=== PATIENT | male | born 1960 | race Hispanic/Latino ===

== ENCOUNTER 2018-08-07 19:58 | Emergency (ER) | payer BC, SELFPAY ==
--- NOTE | 2018-08-07 22:26 | ER ---
Nurse's Notes [facility] Name: Homer Bradshaw Age: 58 yrs Sex: Male : 1960 Arrival Date: 08/07/2018 Time: 20:01 Bed 24 Private MD: Ruiz Nielson R Diagnosis: Urinary retention;Constipation, unspecified Presentation: 08/07 20:02 Presenting complaint: Patient states: Patient states I am having problems having a tl1 bowel movement and he has been unable to urinate since yesterday. Transition of care: patient was not received from another setting of care. Onset of symptoms was August 06, 2018. Risk Assessment: Do you want to hurt yourself or someone else? Patient reports no desire to harm self or others. Initial Sepsis Screen: Does the patient meet any 2 criteria? No. Patient's initial sepsis screen is negative. Does the patient have a suspected source of infection? No. Patient's initial sepsis screen is negative. Care prior to arrival: None. 20:02 Method Of Arrival: Wheelchair tl1 20:02 Acuity: MICHELLE 3 tl1 20:06 Note dialysis Tues/Th/Sat. tl1 Historical: - Allergies: 20:05 Vancomycin; tl1 - Home Meds: 20:46 clonidine HCl 0.1 mg Oral tab 1 tab 2 times per day [Active]; carvedilol 12.5 mg oral tl1 tab 1 tab every 12 hours [Active]; Nifedipine ER Oral 60 mg twice a day [Active]; isosorbide mononitrate 120 mg Oral Tb24 once daily [Active]; ferrous sulfate 325 mg (65 mg iron) Oral tab [Active]; lansoprazole 15 mg oral cpDR 1 cap once daily [Active]; atorvastatin 40 mg oral tab 1 tab once daily [Active]; 21:12 hydrocodone-acetaminophen 7.5-325 mg Oral tab 1 tab every 6 hours [Active]; furosemide tl1 40 mg Oral tab 2 tabs 2 times per day [Active]; losartan 100 mg oral tab 1 tab once daily [Active]; Insulin: Novolog Sub-Q [Active]; insulin-levemir 20 unit daily [Active]; Vitamin D Oral 50,000 unit every Sunday [Active]; aspirin 81 mg Oral TbEC 1 tab once daily [Active]; - PMHx: 20:05 Diabetes - IDDM; Dialysis; Hypertension; tl1 - PSHx: 20:05 Knee surgery; CABG; dialysis port; tl1 - Immunization history:: Adult Immunizations up to date. - Social history:: Smoking status: Patient/guardian denies using tobacco, never smoked. - Ebola Screening: : Patient negative for fever greater than or equal to 101.5 degrees Fahrenheit, and additional compatible Ebola Virus Disease symptoms Patient denies exposure to infectious person Patient denies travel to an Ebola-affected area in the 21 days before illness onset. Screenin:19 Abuse screen: Denies threats or abuse. Denies injuries from another. Nutritional rv screening: No deficits noted. Tuberculosis screening: No symptoms or risk factors identified. Fall Risk No fall in past 12 months (0 pts). Secondary diagnosis (15 points) impaired mobility, No IV (0 pts). Ambulatory Aid- None/Bed Rest/Nurse Assist (0 pts). Gait- Impaired (20 pts.). Mental Status- Oriented to own ability (0 pts). Total Lorenzo Fall Scale indicates Low Risk Score (25-44 pts). Fall prevention measures have been instituted. Side Rails Up X 2 Placed close to Nursing Station Frequent Obs/Assesments occuring Family Present and informed to notify staff if they need to leave bedside As available Patient and Family Educated on Fall Prevention Program and strategies. Assessment: 20:17 General: Appears uncomfortable, Behavior is calm, cooperative. Pain: Complains of pain rv in abdomen and pelvis. Neuro: Level of Consciousness is awake, alert, obeys commands, Oriented to person, place, time, situation. Cardiovascular: Capillary refill < 3 seconds. Respiratory: Airway is patent. GI: Bowel sounds present X 4 quads. Abd is soft and non tender X 4 quads. : Reports inability to void, since YESTERDAY. EENT: No signs and/or symptoms were reported regarding the EENT system. Derm: Skin is intact. Musculoskeletal: No signs and/or symptoms reported regarding the musculoskeletal system. Vital Signs: 20:05 BP 113 / 70; Pulse 83; Resp 19; Temp 97.2; Pulse Ox 99% ; Weight 90.72 kg; Height 6 ft. tl1 1 in. (185.42 cm); Pain 7/10; 22:44 BP 126 / 100 LA; Pulse 88; Resp 18 S; Pulse Ox 98% on R/A; rv 20:05 Body Mass Index 26.39 (90.72 kg, 185.42 cm) tl1 ED Course: 20:01 Patient arrived in ED. es 20:01 Ruiz Nielson MD is Private Physician. es 20:04 Triage completed. tl1 20:06 Arm band placed on right wrist. tl1 20:18 Patient has correct armband on for positive identification. Bed in low position. Call rv light in reach. Side rails up X 1. Adult w/ patient. Pulse ox on. NIBP on. 20:40 Ervin Evangelista MD is Attending Physician. tw4 21:15 Rosario cath inserted, using sterile technique, 16 Fr., by pa, balloon inflated, returned rv clear yellow urine. Patient tolerated well. 22:24 Ruiz Nielson MD is Referral Physician. tw4 22:44 No provider procedures requiring assistance completed. Patient did not have IV access rv during this emergency room visit. Administered Medications: No medications were administered Output: 21:15 Urine: 725ml (Rosario); Total: 725ml. rv Outcome: 22:25 Discharge ordered by . tw4 22:45 Discharged to home via wheelchair. rv 22:45 Condition: good 22:45 Discharge instructions given to patient, family, Instructed on discharge instructions, follow up and referral plans. medication usage, Demonstrated understanding of instructions, follow-up care, medications, Prescriptions given X 1. 22:48 Patient left the ED. rv Signatures: Cinthya Espinoza Tonya RN RN tl1 Ervin Evangelista MD MD tw4 Costa Palmer RN RN rv
[2018-08-08 00:22] VITALS: TEMP 97.2
[2018-08-08 00:23] VITALS: BP 126/100; O2SAT 98
--- NOTE | 2018-08-08 22:48 | EDPHYS ---
Physician Documentation [facility] Name: Homer Bradshaw Age: 58 yrs Sex: Male : 1960 Arrival Date: 08/07/2018 Time: 20:01 Bed 24 Private MD: Ruiz Nielson R ED Physician Ervin Evangelista HPI: 08/08 06:01 This 58 yrs old Male presents to ER via Wheelchair with complaints of tw4 Constipation, Urinary Retention. 06:01 The patient presents with urinary symptoms, retention. Onset: The symptoms/episode tw4 began/occurred today. Modifying factors: The symptoms are alleviated by nothing, the symptoms are aggravated by movement, pressure. Associated signs and symptoms: The patient has no apparent associated signs or symptoms. Severity of symptoms: At their worst the symptoms were moderate. The patient has not experienced similar symptoms in the past. Historical: - Allergies: 08/07 20:05 Vancomycin; tl1 - Home Meds: 20:46 clonidine HCl 0.1 mg Oral tab 1 tab 2 times per day [Active]; carvedilol 12.5 mg oral tl1 tab 1 tab every 12 hours [Active]; Nifedipine ER Oral 60 mg twice a day [Active]; isosorbide mononitrate 120 mg Oral Tb24 once daily [Active]; ferrous sulfate 325 mg (65 mg iron) Oral tab [Active]; lansoprazole 15 mg oral cpDR 1 cap once daily [Active]; atorvastatin 40 mg oral tab 1 tab once daily [Active]; 21:12 hydrocodone-acetaminophen 7.5-325 mg Oral tab 1 tab every 6 hours [Active]; furosemide tl1 40 mg Oral tab 2 tabs 2 times per day [Active]; losartan 100 mg oral tab 1 tab once daily [Active]; Insulin: Novolog Sub-Q [Active]; insulin-levemir 20 unit daily [Active]; Vitamin D Oral 50,000 unit every Sunday [Active]; aspirin 81 mg Oral TbEC 1 tab once daily [Active]; - PMHx: 20:05 Diabetes - IDDM; Dialysis; Hypertension; tl1 - PSHx: 20:05 Knee surgery; CABG; dialysis port; tl1 - Immunization history:: Adult Immunizations up to date. - Social history:: Smoking status: Patient/guardian denies using tobacco, never smoked. - Ebola Screening: : Patient negative for fever greater than or equal to 101.5 degrees Fahrenheit, and additional compatible Ebola Virus Disease symptoms Patient denies exposure to infectious person Patient denies travel to an Ebola-affected area in the 21 days before illness onset. ROS: 08/08 06:01 Constitutional: Negative for fever, chills, and weight loss, Eyes: Negative for injury, tw4 pain, redness, and discharge, Cardiovascular: Negative for chest pain, palpitations, and edema, Respiratory: Negative for shortness of breath, cough, wheezing, and pleuritic chest pain, Abdomen/GI: Negative for abdominal pain, nausea, vomiting, diarrhea, and constipation. MS/Extremity: Negative for injury and deformity, Skin: Negative for injury, rash, and discoloration. : Positive for urinary symptoms. Exam: 06:01 Head/Face: Normocephalic, atraumatic. Chest/axilla: Normal chest wall appearance and tw4 motion. Nontender with no deformity. No lesions are appreciated. 06:01 Cardiovascular: Regular rate and rhythm with a normal S1 and S2. No gallops, murmurs, or rubs. Normal PMI, no JVD. No pulse deficits. Respiratory: Lungs have equal breath sounds bilaterally, clear to auscultation and percussion. No rales, rhonchi or wheezes noted. No increased work of breathing, no retractions or nasal flaring. Abdomen/GI: Soft, non-tender, with normal bowel sounds. No distension or tympany. No guarding or rebound. No evidence of tenderness throughout. Back: No spinal tenderness. No costovertebral tenderness. Full range of motion. MS/ Extremity: Pulses equal, no cyanosis. Neurovascular intact. Full, normal range of motion. Neuro: Awake and alert, GCS 15, oriented to person, place, time, and situation. Cranial nerves II-XII grossly intact. Motor strength 5/5 in all extremities. Sensory grossly intact. Cerebellar exam normal. Normal gait. 06:01 Constitutional: The patient appears in obvious distress, moderately distressed. 06:01 Constitutional: The patient appears in obvious pain. Vital Signs: 08/07 20:05 BP 113 / 70; Pulse 83; Resp 19; Temp 97.2; Pulse Ox 99% ; Weight 90.72 kg; Height 6 ft. tl1 1 in. (185.42 cm); Pain 7/10; 22:44 BP 126 / 100 LA; Pulse 88; Resp 18 S; Pulse Ox 98% on R/A; rv 20:05 Body Mass Index 26.39 (90.72 kg, 185.42 cm) tl1 MDM: 20:40 Patient medically screened. tw4 08/08 06:01 Differential diagnosis: nonspecific abdominal pain, appendicitis, UTI. Data reviewed: tw4 vital signs, nurses notes. Data interpreted: Pulse oximetry:. Counseling: I had a detailed discussion with the patient and/or guardian regarding: the historical points, exam findings, and any diagnostic results supporting the discharge/admit diagnosis. Special discussion: I discussed with the patient/guardian in detail that at this point there is no indication for admission to the hospital. It is understood, however, that if the symptoms persist or worsen the patient needs to return immediately for re-evaluation. Administered Medications: No medications were administered Disposition: 08/07/18 22:25 Discharged to Home. Impression: Urinary retention, Constipation, unspecified. - Condition is Stable. - Discharge Instructions: Constipation, Adult, Acute Urinary Retention, Male. - Prescriptions for Miralax 17 gram/dose Oral - take 1 packet by ORAL route once daily dilute powder in 8 ounces of water or juice; 1 packet. - Medication Reconciliation Form, Thank You Letter, Antibiotic Education, Prescription Opioid Use form. - Follow up: Ruiz Nielson MD; When: Upon discharge from the Emergency Department; Reason: If symptoms return, Recheck today's complaints, Continuance of care. - Problem is new. - Symptoms have improved. Signatures: Denita Caraballo RN RN tl1 Ervin Evangelista MD MD tw4 Costa Palmer RN RN rv Corrections: (The following items were deleted from the chart) 08/07 22:48 22:25 08/07/2018 22:25 Discharged to Home. Impression: Urinary retention; Constipation, rv unspecified. Condition is Stable. Forms are Medication Reconciliation Form, Thank You Letter, Antibiotic Education, Prescription Opioid Use. Follow up: Ruiz Nielson; When: Upon discharge from the Emergency Department; Reason: If symptoms return, Recheck today's complaints, Continuance of care. Problem is new. Symptoms have improved. tw4
== END 2018-08-07 22:48 | disposition home or self-care (01) ==
LOC: ER 19:58
DX: K59.00 Constipation, unspecified (principal); I10 Essential (primary) hypertension; E11.9 Type 2 diabetes mellitus without complications; Z79.4 Long term (current) use of insulin; Z79.82 Long term (current) use of aspirin; Z88.3 Allergy status to other anti-infective agents; Z99.2 Dependence on renal dialysis; Z95.1 Presence of aortocoronary bypass graft
CPT/HCPCS: 51702; 99284

== ENCOUNTER 2020-10-10 14:28 | Emergency (ER) | payer MEDICARE ==
--- OUTSIDE RECORDS SUMMARY | 2020-10-10 14:41 | XMS REPORT | Continuity of Care Document ---
:1960 Author Organization [facility] t Address [address] [place] [address] Dr. Cole [address] [place] [id number] Care Team Providers Name Role Phone Ruiz Johnson Primary Care Physician Unavailable Yenni Mansfield Attending Clinician Unavailable Jessica Saeed MD Attending Clinician Unavailable Jessica WALLACE Attending Clinician Unavailable Ya Whitehead Attending Clinician Unavailable Delbert Gates MD Attending Clinician Jarrod Healy MD Attending Clinician Krystina WALLACE Attending Clinician Unavailable Toribio Attending Clinician Unavailable Jonathan Attending Clinician Unavailable Compa JUNE RIqra Attending Clinician DELBERT GATES Attending Clinician Unavailable MUSA HAMILTON Attending Clinician Unavailable Gabriella HARRIS Attending Clinician Unavailable ALEXIS DAIGLE Attending Clinician Unavailable ROBERT CHATMAN Attending Clinician Unavailable JOHN PAUL BONE Attending Clinician Unavailable PAZ DICKERSON Attending Clinician Unavailable JASON Attending Clinician Unavailable HERB Attending Clinician Unavailable EMEKA ZAMBRANO Attending Clinician Unavailable LUCINA العراقي Attending Clinician Unavailable BROOKLYN DENSON Attending Clinician Unavailable Eren SCOTT Attending Clinician Unavailable BROOKLYN SHEETS Attending Clinician Unavailable MUSA HAMILTON Admitting Clinician Unavailable TRAVIS ALLEN Admitting Clinician Unavailable ROBERT CHATMAN Admitting Clinician Unavailable CAROLINE Admitting Clinician Unavailable KOKI CHANDRA Admitting Clinician Unavailable HERB Admitting Clinician Unavailable EMEKA ZAMBRANO Admitting Clinician Unavailable LUCINA العراقي Admitting Clinician Unavailable ZANE SADLER Admitting Clinician Unavailable Eren SCOTT Admitting Clinician Unavailable BROOKLYN HEADLEY Admitting Clinician Unavailable Payers Payer Name Policy Type Policy Effective Date Expiration Date Sour ce Number MEDICAREMEDICARE A [id number] 2018 [facility] CywaaoelKJ330/06/2018-P 00:00:00 - Medical resentMedicare Center BLUE CROSS/BLUE [id number] [address] [facility] SHIELDBCBS PPO POS EPO 1 00:00:00 - Medical [id number], [place] [id number] COVID VACCINE ADMIN / [id number] 2020-07-12 DARCI Parker TESTINGCOVID VACCINE 00:00:00 - Nh dical ADMIN / Center [id number] Problems Condition Condition Condition Status Onset Resolution Last Treating Co mments Source Name Details Category Date Date Treatment Clinician Date S/P AKA S/P AKA Disease Active Last [facility] (above (above 8-[facility] - knee knee 00:00: t & Plan: Medical amputation amputation 00 He has a Center ) ) right unilateral unilateral above the , right , right knee amputatio n and is able to walk with the prosthesi s with a walker for short distances . He continues to use a wheelchai r only for long distances . We recommend he continue to work with physical therapy to increase his ability walk with prothesis and walker, however he is acceptabl e at current functiona l status. We will request follow up appointme nt with transplan t surgery in 6 months to continue to assess progress of his functiona l status. Diabetic Diabetic Disease Active [facility] peripheral peripheral 8-15 [facility] - neuropathy neuropathy 00:00: Me dical 00 Center Secondary Secondary Disease Active [facility] hyperparat hyperparat 8-15 Loena kes - hyroidism hyroidism 00:00: Medi fatmata of renal of renal 00 Center origin origin Pre-transp Pre-transp Disease Active [facility] t & Plan: Medical for end for end 00 He is an Center stage stage acceptabl renal renal e disease disease candidate but will be considere d high risk due to vessel calcifica tion. We recommend right side placement of kidney transplan t. We recommend he continue to work with physical therapy and would like to assess his mobility status in surgery clinic again in six months. S/P CABG x S/P CABG x Disease Active Last [facility] 3 3 8-15 [facility] - 00:00: t & Plan: Medical 00 He has a Center past history of CAD with CABG x3 in 2018. Proceed with cardiolog y clearance prior to transplan t. S/P S/P Disease Active [facility] peripheral peripheral 8-15 [facility]ona k[facility] - artery artery 00:00: Medical angioplast angioplast 00 Ce nter y with y with stent stent placement placement Pyogenic Pyogenic Disease Active [facility] arthritis arthritis 4-17 [facility] - of right of right 00:00: Medica l knee joint knee joint 00 Ce nter Acute pain Acute pain Disease Active [facility] of right of right 4-16 [facility] - knee knee 00:00: Medical 00 Center Open wound Open wound Disease Active [facility] of right of right 2-06 [facility] - knee knee 00:00: Medical 00 Center Pyogenic Pyogenic Disease Active 2017-06 [facility] arthritis arthritis 2-19 [facility] - of right of right 00:00: Medica l knee joint knee joint 00 Ce nter GI bleed GI bleed Disease Active 2017-06 [facility] 2-17 [facility] - 00:00: Medical 00 Center Hyperlipid Hyperlipid Disease Active 2017-[address] emia emia 06-27 [facility] - 00:00: Medical 00 Center Hypertensi Hypertensi Disease Active 2017-[address] on on 06-27 [facility] - 00:00: Medical 00 Center Acute Acute Disease Active 2017-[address] [facility] [facility] renal renal 06-27 [facility] - failure failure 00:00: Medical superimpos superimpos 00 Ce nter ed on ed on stage 3 stage 3 chronic chronic kidney kidney disease disease DM DM Disease Active 2017-[address] (diabetes (diabetes 1-17 [facility] - mellitus), mellitus), 00:00: t & Plan: Medical type 2 type 2 00 He will Center require strict blood glucose monitorin g and control prior to transplan t. Macrocytic Macrocytic Disease Active 2017-[address] anemia anemia 1-17 [facility] - 00:00: Medical 00 Center Dyspnea Dyspnea Disease Active 2017-[address] [facility] and and 1-16 [facility] - respirator respirator 00:00: Me dical y y 00 Center abnormalit abnormalit y y Pericardia Pericardia Disease Active [facility] l effusion l effusion 5-17 [facility]ona k[facility] - 00:00: Medical 00 Center Coronary Coronary Disease Active [facility] artery artery 5-11 [facility] - disease disease 00:00: Medical involving involving 00 Cent [place] coronary coronary artery of artery of [place] heart heart without without angina angina pectoris pectoris Peripheral Peripheral Disease Active [facility] polyneurop polyneurop 5-11 [facility]ona k[facility] - athy athy 00:00: Medical 00 Center Respirator Respirator Disease Active [facility] y y 5-04 [facility] - insufficie insufficie 00:00: Me dical ncy ncy 00 Center Non-ST Non-ST Disease Active [facility] elevation elevation -26 [facility] [place] 00:00: Medical (NSTEMI) (NSTEMI) 00 Center Diastolic Diastolic Disease Active [facility] CHF, acute CHF, acute -26 Leona kes - on chronic on chronic 00:00: Me dical 00 Center Metabolic Metabolic Disease Active [facility] acidosis acidosis 10-04 [facility] - 00:00: Medical 00 Center Hyperphosp Hyperphosp Disease Active [facility] hatemia hatemia - [facility] - 00:00: Medical 00 Center Hypocalcem Hypocalcem Disease Active [facility] ia ia -26 [facility] - 00:00: Medical 00 Center CKD stage CKD stage Disease Active [facility] 3 3 -26 [facility] - secondary secondary 00:00: Medi fatmata to to 00 Center diabetes diabetes Osteomyeli Osteomyeli Disease Active [facility] tis of tis of 4-19 [facility] - right foot right foot 00:00: Me dical 00 Center Cellulitis Cellulitis Disease Active [facility] of foot, of foot, 4-19 [facility] - right right 00:00: Medical 00 Center Diabetic Diabetic Disease Active [facility] infection infection 4-19 [facility] - of right of right 00:00: Medica l foot foot 00 Center Subacute Subacute Disease Active [facility] osteomyeli osteomyeli 1-31 Leona kes - tis of tis of 00:00: Medical right foot right foot 00 Ce nter Renal Renal Disease Active [facility] failure, failure, 1-14 [facility] - acute on acute on 00:00: Medica l chronic chronic 00 Center Ischemic Ischemic Disease Active 2015-06 [facility] ulcer of ulcer of 2-19 [facility] - right foot right foot 00:00: Me dical 00 Center Osteomyeli Osteomyeli Disease Active 2014-[address] tis of tis of 0-16 [facility] - left leg left leg 00:00: Medica l 00 Center BPH BPH Disease Active 2014-[address] [facility] (benign (benign 0-11 [facility] - prostatic prostatic 00:00: Medi fatmata hypertroph hypertroph 00 Ce nter y) with y) with urinary urinary retention retention Encephalop Encephalop Disease Active 2014-[address] athy athy 0-11 [facility] - 00:00: Medical 00 Center Accelerate Accelerate Disease Active 2014-[address] d d 0-11 [facility] - hypertensi hypertensi 00:00: Me dical on on 00 Center Type 2 Type 2 Disease Active 2014-[address] diabetes diabetes 0-05 Ass[facility] Patricia es - mellitus mellitus 00:00: t & Plan: Med ical with with 00 He will Center diabetic diabetic require retinopath retinopath strict y y blood glucose control prior to transplan t. Diabetes Diabetes Disease Active 2014-06 [facility] mellitus mellitus 0-05 [facility] - type 2 type 2 00:00: Medical with with 00 Center neurologic neurologic al al manifestat manifestat ions ions Hypertensi Hypertensi Disease Active 2014-[address] on on 0-05 [facility] - associated associated 00:00: Me dical with with 00 Center chronic chronic kidney kidney disease disease due to due to type 2 type 2 diabetes diabetes mellitus mellitus Diabetic Diabetic Disease Active 2014-06 [facility] foot ulcer foot ulcer 0-05 [facility] - 00:00: t & Plan: Medical 00 No Center current diabetic foot ulcer on the left foot are noted in clinic today. Continue with strict diabetic foot care. Chest pain Chest pain Disease Active 2014-[address] 0-05 [facility] - 00:00: Medical 00 Center FARHAN (acute FARHAN (acute Disease Active 2014-[address] kidney kidney 0-05 [facility] - injury) injury) 00:00: Medical 00 Center Anemia, Anemia, Disease Active 2014-[address] [facility] iron iron 0- [facility] - deficiency deficiency 00:00: Me dical 00 Center Critical Critical Disease Active 2014-06 [facility] lower limb lower limb 0- Leona lindas - ischemia ischemia 00:00: Medica l 00 Center Essential Essential Disease Active [facility] hypertensi hypertensi Leona kes - on on Medical Center PVD PVD Disease Active Last [facility] (periphera (periphera [facility] - l vascular l vascular t & Plan: Medical disease) disease) He is s/p Emily ter left femoral- tibial bypass in 2014, right femoral angio + stents in 2016 due to PVD. ESRD (end ESRD (end Disease Active [facility] stage stage [facility] - renal renal Medical disease) disease) Center ESRD on ESRD on Disease Active Last [facility] hemodialys hemodialys [facility] - is is t & Plan: Medical He has Center ESRD due to DM/HTN. He has been on HD since 06/2018. He continues to make urine at this time. He does not have any potential donors. Allergies, Adverse Reactions, Alerts Allergy Allergy Status Severity Reaction(s) Onset Inactive Treating Comm ents Source Name Type Date Date Clinician Vancomyc Drug Active Other (See Kidney [facility] in Allergy Comments) 4-24 Failure [facility] - Analogue 00:00: Medical s 00 Center No Known DA Active [facility] Allergie 03-05 [place] s 00:00: d 00 Medical Center Family History Family Member Diagnosis Comments Start Date Stop Date Source Natural brother No Known Problem [facility] Natural brother Heart disease [facility] Natural daughter No Known Problem CH I [facility] Natural father Diabetes [facility] Natural father Heart disease [facility] Natural mother Diabetes [facility] Natural mother Heart disease [facility] Natural sister Breast cancer [facility] Natural sister No Known Problem [facility] Social History Social Habit Start Date Stop Date Quantity Comments Source Sex Assigned At [facility] Cigarettes smoked 2020-01-06 2020-01-[address] [facility] Paula - current (pack per 00:00:00 00:00:00 [facility] Center day) - Reported Cigarette 2020-01-06 2020-01-06 [facility] - pack-years 00:00:00 00:00:00 [facility] Tobacco use and 2020-01-06 2020-01-06 Never used [facility] Leona strauss - exposure 00:00:00 00:00:00 [facility] Alcohol intake 2020-01-06 2020-01-06 Current [facility]k es - 00:00:00 00:00:00 non-drinker of Medical Ce nter alcohol (finding) History of tobacco 2014-12-09 Current smoker JOE Parker - use 00:00:00 [facility] Smoking Status Start Date Stop Date Source Former smoker 2020-01-06 00:00:00 2020-01-06 00:00:00 [facility] Medications Ordered Filled Start Stop Current Ordering Indication Dosage Frequency Signature Comments Components Source Medication Medication Date Date Medication? Clinician (SIG) Name Name calcium 2019-06 Yes 1{tbl} [id number] Take [address] [facility] carbonate 0-27 [id number] tablet by [facility] - (calcium 10:49: 3D mouth 3 Medica l carbonate) 56 (three) Center 300 mg Chew times daily. metoprolol 2019-06 Yes 12.5mg Q.5D Take 12.[address] tartrate 0-27 mg by [facility]ukes - (LOPRESSOR) 10:49: mouth 2 Med ical 25 MG 56 (two) Center tablet times daily. calcium 2019-06 2020- No 2{tbl} [id number] Take [address] carbonate 0-27 10-27 [id number] tablets by [facility] - (CALCIUM 10:49: 00:00 3D mouth 3 Medic al CARBONATE) 04 :00 (three) Center 300 mg Chew times daily. ergocalcife 2019-06 2020- No 1{capsu Q7D Take [address] [facility] rol 0-27 10-27 le} capsule by [facility] - (VITAMIN 10:48: 00:00 mouth once Me dical D2) 1,250 28 :00 a week. Center mcg (50,000 unit) capsule ferrous 2019-06- No Take by [facility] fumarate 0-27 10-27 mouth. [facility] - 324 mg (106 10:48: 00:00 Medic al mg iron) 10 :00 Center Tab polyethylen 2019-06- No 17g Take [address] e glycol 0-27 10-27 by mouth [facility] - (GLYCOLAX) 10:47: 00:00 daily as Me dical 17 gram 54 :00 needed . [place] packet carvedilol 2019-06- No 12.5mg Take 12.[address] (COREG) 0-27 10-27 mg by [facility] - 12.5 MG 10:47: 00:00 mouth 2 Medica l tablet 29 :00 (two) Center times daily with breakfast and dinner . aspirin 81 Yes 81mg QD Take [address] MG EC 7-28 by mouth [facility] - tablet 10:54: daily. Medical 31 [place] lansoprazol Yes 15mg QD Take [address] [facility] e 7-28 by mouth [facility] - (PREVACID) 10:54: daily. Medic al 15 MG 31 [place] capsule docusate Yes 100mg QD Take [address] sodium 7-28 mg by [facility]ukes - (COLACE) 10:54: mouth Medical 100 MG 31 daily . [place] capsule melatonin 3 Yes Take by [facility] mg Tab 7-28 mouth [facility] - tablet 10:54: every Medical 31 night as Center needed. atorvastati Yes 40mg QD Take [address] [facility] n (LIPITOR) 7-28 by mouth Luke s - 40 MG 10:54: nightly. Medical tablet 31 Center darbepoetin Yes 100ug Inject [address] fritz-polyso 7-28 mcg Lukes - rbate 10:54: subcutaneo Medica l (ARANESP) 31 usly as Center 100 mcg/0.5 needed . mL Syrg injection insulin Yes 40U QD Inject 40 [facility] detemir 7-28 Units [facility]ukes - U-100 10:54: subcutaneo Medica l (LEVEMIR) 31 usly every Cent er 100 unit/mL morning . (3 mL) InPn injection insulin Yes Inject [facility] aspart 7-28 subcutaneo [facility]ukes - U-100 10:54: usly 3 Medical (NOVOLOG) 31 (three) Center 100 unit/mL times injection daily before meals Per sliding scale . DIALYVITE Yes TAKE [address] [facility] 800-ULTRA D 8-16 TABLET [facility] - 0.8-2,000 00:00: EVERY DAY Med ical mg-unit Tab 00 TAKE AFTER Ce nter TREATMENT ON DIALYSIS DAYS sertraline 2019- No 50mg QD Take [address] (ZOLOFT) 50 6-28 04-06 by mouth Patricia es - MG tablet 00:00: 00:00 daily. Medic al 00 :00 Center Immunizations Ordered Immunization Filled Immunization Date Status Commen ts Source Name Name Covid-19 Vaccine 2020-07-[address] [facility] [facility] - Mrna (Pf) 00:00:00 [facility] ([email or web address] [place]) Covid-19 Vaccine 2020-07-[address] [facility] - Mrna (Pf) 00:00:00 [facility] ([email or web address] [place]) Influenza Three-TIV 2015-03-12 [facility] - PF 5+ YRS 00:00:00 Medic tn Center Vital Signs Vital Name Observation Time Observation Value Comments Source Systolic blood 2020-04-06 144 mm[Hg] [facility] - pressure 10:32:00 Medical Center Diastolic blood 2020-04-06 69 mm[Hg] [facility] - pressure 10:32:00 Medical Center Heart rate 2020-04-06 61 /min [facility] - 10:32:00 Medical Center Body temperature 2020-04-[address] [facility] - 10:32:00 Medical Center Respiratory rate 2020-04-06 18 /min [facility] - 10:32:00 Medical Center Body height 2020-04-06 185.4 cm per patient with [facility] - 10:32: prosthetic on Medical Center right leg below knee Body weight 2020-04-06 98.793 kg with prosthetic [facility] - 10:32:00 on right leg Medical Center below knee BMI 2020-04-06 28.74 kg/m2 [facility] - 10:32:00 Medical Center Oxygen saturation 2020-01-06 98 /min [facility] Patricia es - in Arterial blood 10:30:00 Medical Ce nter by Pulse oximetry Procedures Procedure Date / Time Performed Performing Clinician Sourc e CTA ABDOMEN & PELVIS 2020-01-06 08:19:00 KodyAwais [facility] Plan of Care Planned Activity Planned Date Details Comments Source Future Scheduled 2021-04-[address] [facility] - Test 00:00:00 (procedure) [code = Medical Center 48104768] Future Scheduled 2021-02-[address] [facility] - Test 00:00:00 (Season Ended) [code = [facility] al Center INFLUENZA VACCINE (Season Ended)] Future Scheduled 2020-06-[address] [facility] - Test 00:00:00 (12+) [code = Medical Center DEPRESSION SCREENING (12+)] Future Scheduled 2019-10-[address] [facility] [facility] - Test 00:00:00 WELLNESS (YEAR 2 or Medical Center FIRST YEAR if no IPPE) [code = MEDICARE ANNUAL WELLNESS (YEAR 2 or FIRST YEAR if no IPPE)] Future Scheduled 2019-10-[address] Leona kes - Test 00:00:00 measurement [facility] Center (procedure) [code = 26169636] Future Scheduled 2019-04-[address] [facility] Patricia es - Test 00:00:00 malignant neoplasm of [facility] colon (procedure) [code = 021854280] Future Scheduled 2010-01-17 SHINGLES VACCINES ([address] [facility] - Test 00:00:00 of 2) [code = SHINGLES [facility] Center VACCINES (1 of 2)] Future Scheduled 1979-01-17 DTAP/TDAP/TD VACCINES [facility] - Test 00:00:00 (1 - Tdap) [code = Medical C enter DTAP/TDAP/TD VACCINES (1 - Tdap)] Future Scheduled 1970-01-[address] E[address] EXAM [facility] - Test 00:00:00 [code = DIABETIC EYE Medical Center EXAM] Future Scheduled 1970-01-[address] Patricia es - Test 00:00:00 examination [facility] Center (regime/therapy) [code = 307348632] Future Scheduled 1970-01-17 Urine screening for [facility] - Test 00:00:00 protein (procedure) Medical Center [code = 843557054] Future Scheduled 1966-01-[address] Chai - Test 00:00:00 0-64 YRS (1 of 1 - Medical C enter PPSV23) [code = PNEUMOCOCCAL VACCINE 0-64 YRS (1 of 1 - PPSV23)] Encounters Start End Encounter Admission Attending Care Care Encounter Source Date/Time Date/Time Type Type Clinicians Facility Department ID 2019-04-14 2019-04-14 Office JESÚS Chatman [id number] 14:30:00 14:40:00 Visit Shari ALVAREZ [id number] Y [id number] Results Test Test Test Comments Results Result Source Description Time Comments CT, CTA ABDOMEN 2019-12- esrd/kidney Addendum BeginsREPORT 29 transplant STATUS:A PATIENT ID: 14:59:00 evaluationKidney [id number] Addendum: I transplant agree with the evaluation; ESRD on previously described dialysis, evaluate non vascular arteries and veins findings. Signed: for transplant; Mele Gurrola MDReport comment on number of Verified Date/Time: renal cysts on each 01/07/2020 14:59:12 side to meet Reading Location: criteria for [facility] Radiology Acquired Cystic Reading RoomAddendum Kidney DiseaseReason EndsFINAL REPORT for PATIENT ID: Exam:->esrd/kidney [id number] CT transplant angiography of the evaluation abdominal aorta and pelvic arteries, 06-Jan-20 INDICATION: This is a 59 year old male with a diagnosis of end-stage renal disease, presents for pretransplant assessment. TECHNIQUE: Spiral acquisition before and during intravenous contrast administration using a [employer] multidetector CT scanner. Images were obtained before and during the dynamic passage of intravenous contrast material. Multi-planar 3-D volume-rendering reconstruction was performed using an independent workstation interactively by the interpreting physician as well as the 3-D specialist for optimal visualisation of the abdominal aorta, pelvic arteries, and its proximal branches. Please refer to the contrast sheet scanned in the EPIC system for the amount and route of contrast given. This exam was performed according to our departmental dose-optimisation programme, which includes automated exposure control, adjustment of the mA and/or kV according to patient size and/or use of iterative reconstruction technique. Dose modulation, iterative reconstruction, and/or weight based adjustment of the mA/kV was utilized to reduce the radiation dose to as low as reasonably achievable. FINDINGS: VASCULAR: Patient is post median sternotomy. Calcification is identified in the distal RCA, where visualised. The abdominal aorta is normal in course, calibre and contour. However, mild to moderate calcification is identified in the abdominal aorta. No ectasia or aneurysmal dilation is seen. There is no evidence of acute aortic pathology, specifically, there is no dissection, intramural hematoma, or contained rupture. Quantitative dimensions of the abdominal aorta are as follows: 2.0 cm at the mesenteric segment; 1.8 cm at the renal segment,; and 1.8 cm at the aortic bifurcation. Moderate calcification is identified at the takeoff of the coeliac axis making accurate assessment of this segment limited. Remainder of the coeliac axis is patent. The SMA also has mild calcification identified proximally. Replaced right hepatic artery is evident. The TWYLA is patent with diffuse calcification identified. Patient has end-stage renal disease. The common iliac, external iliac, common femoral, and the visualised superficial femoral arteries, bilaterally, are widely patent with no obstructive lesion identified. However, in the precontrast series, mild to moderate calcification is seen in the common iliac level. There is circumferential calcification, moderate in nature, is present circumferentially throughout the left and right external iliac arteries, extending into the common femoral arteries, despite no stenosis is seen. [employer] dimensions of the left and the right external iliac arteries are at least 7 mm, bilaterally. Similarly, the associated pelvic veins are patent with no venous thrombosis identified. [employer] dimensions of the left and the right external iliac veins are 11 and 9 mm, respectively. NON-VASCULAR: The lung bases are unremarkable. Basal pleural thickening is identified. Tiny 1 to 2 mm noncalcified nodule is identified in the left base, at image one of the precontrast series, of doubtful significance. In the abdomen, the liver and spleen appears unremarkable. Scattered calcified granuloma is identified in the spleen. The liver edge is smooth. No abnormal enhancing structure is identified. The gallbladder appears unremarkable. The pancreas appears unremarkable. The adrenal glands are not enlarged. Patient has end-stage renal disease. No hydronephrosis or perirenal fluid collection is identified. No renal cyst is appreciated. Bowel is not well assessed by CT angiography as enteric contrast is not given. No obvious bowel dilation is identified. There is likely nondistention of the distal colon, without contrast administration. The appendix appears unremarkable. No free air or free fluid is identified abdomen and pelvis. The bladder and the prostate gland appears unremarkable. No significant retroperitoneal adenopathy is present. In the bony windows, no acute bony pathology is seen. Some degenerative changes is noted. CONCLUSIONS: 1. The abdominal aorta is normal in course, calibre and contour. However, abdominal aortic calcification is seen with no ectasia or aneurysmal dilation identified. There is no evidence of acute aortic pathology, specifically, there is no dissection, intramural hematoma, or contained rupture. Quantitative dimension of the abdominal aorta are as noted. The pelvic arteries and veins are widely patent with no arterial stenosis or venous thrombosis identified. Note, in the precontrast series, there is circumferential calcification seen along the pathway of the left and the right external iliac arteries, without luminal obstructive lesion identified. [employer] dimensions of the left and the right external iliac arteries and veins are as described above. 2. Status of the mesenteric arteries as described above, with calcification seen at the takeoff of the coeliac axis and SMA. 3. Other findings as described above. Tiny 1 to 2 mm noncalcified nodule identified in the left lung base, of doubtful clinical significance the absence of significant past medical history. Professional society recommendation as follows: Nodule Size <6 mm Low-Risk Patient: No routine follow-up Nodule Size <6 mm High-Risk Patient: Optional CT at 12 months Patient has end-stage renal disease. No renal cyst is seen. 4. An addendum will be dictated regarding the non-vascular findings by the Paper Colorer Radiologist. Signed: Nik Mensah Verified Date/Time: 01/06/2020 09:04:57 Reading Location: [facility] P027 CT Reading Room abdomen & 2019-12- Interface, External [facility] pelvis 28 Ris In - 01/07/2020 [facility] - 09:04:00 3:01 PM CDTAddendum Medic al BeginsREPORT STATUS:A Emily dailey Addendum: I agree with the previously described non vascular findings. Signed: Mele Gurrola Verified Date/Time: 01/07/2020 14:59:12 Reading Location: [facility] Radiology Reading RoomAddendum EndsFINAL REPORT CT angiography of the abdominal aorta and pelvic arteries, 06-Jan-20 INDICATION: This is a 59 year old male with a diagnosis of end-stage renal disease, presents for pretransplant assessment. TECHNIQUE: Spiral acquisition before and during intravenous contrast administration using a [employer] multidetector CT scanner. Images were obtained before and during the dynamic passage of intravenous contrast material. Multi-planar 3-D volume-rendering reconstruction was performed using an independent workstation interactively by the interpreting physician as well as the 3-D specialist for optimal visualisation of the abdominal aorta, pelvic arteries, and its proximal branches. Please refer to the contrast sheet scanned in the EPIC system for the amount and route of contrast given. This exam was performed according to our departmental dose-optimisation programme, which includes automated exposure control, adjustment of the mA and/or kV according to patient size and/or use of iterative reconstruction technique. Dose modulation, iterative reconstruction, and/or weight based adjustment of the mA/kV was utilized to reduce the radiation dose to as low as reasonably achievable. FINDINGS: VASCULAR: Patient is post median sternotomy. Calcification is identified in the distal RCA, where visualised. The abdominal aorta is normal in course, calibre and contour. However, mild to moderate calcification is identified in the abdominal aorta. No ectasia or aneurysmal dilation is seen. There is no evidence of acute aortic pathology, specifically, there is no dissection, intramural hematoma, or contained rupture. Quantitative dimensions of the abdominal aorta are as follows: 2.0 cm at the mesenteric segment; 1.8 cm at the renal segment,; and 1.8 cm at the aortic bifurcation. Moderate calcification is identified at the takeoff of the coeliac axis making accurate assessment of this segment limited. Remainder of the coeliac axis is patent. The SMA also has mild calcification identified proximally. Replaced right hepatic artery is evident. The TWYLA is patent with diffuse calcification identified. Patient has end-stage renal disease. The common iliac, external iliac, common femoral, and the visualised superficial femoral arteries, bilaterally, are widely patent with no obstructive lesion identified. However, in the precontrast series, mild to moderate calcification is seen in the common iliac level. There is circumferential calcification, moderate in nature, is present circumferentially throughout the left and right external iliac arteries, extending into the common femoral arteries, despite no stenosis is seen. [employer]er dimensions of the left and the right external iliac arteries are at least 7 mm, bilaterally. Similarly, the associated pelvic veins are patent with no venous thrombosis identified. [employer]er dimensions of the left and the right external iliac veins are 11 and 9 mm, respectively. NON-VASCULAR: The lung bases are unremarkable. Basal pleural thickening is identified. Tiny 1 to 2 mm noncalcified nodule is identified in the left base, at image one of the precontrast series, of doubtful significance. In the abdomen, the liver and spleen appears unremarkable. Scattered calcified granuloma is identified in the spleen. The liver edge is smooth. No abnormal enhancing structure is identified. The gallbladder appears unremarkable. The pancreas appears unremarkable. The adrenal glands are not enlarged. Patient has end-stage renal disease. No hydronephrosis or perirenal fluid collection is identified. No renal cyst is appreciated. Bowel is not well assessed by CT angiography as enteric contrast is not given. No obvious bowel dilation is identified. There is likely nondistention of the distal colon, without contrast administration. The appendix appears unremarkable. No free air or free fluid is identified abdomen and pelvis. The bladder and the prostate gland appears unremarkable. No significant retroperitoneal adenopathy is present. In the bony windows, no acute bony pathology is seen. Some degenerative changes is noted. CONCLUSIONS: 1. The abdominal aorta is normal in course, calibre and contour. However, abdominal aortic calcification is seen with no ectasia or aneurysmal dilation identified. There is no evidence of acute aortic pathology, specifically, there is no dissection, intramural hematoma, or contained rupture. Quantitative dimension of the abdominal aorta are as noted. The pelvic arteries and veins are widely patent with no arterial stenosis or venous thrombosis identified. Note, in the precontrast series, there is circumferential calcification seen along the pathway of the left and the right external iliac arteries, without luminal obstructive lesion identified. [employer]er dimensions of the left and the right external iliac arteries and veins are as described above. 2. Status of the mesenteric arteries as described above, with calcification seen at the takeoff of the coeliac axis and SMA. 3. Other findings as described above. Tiny 1 to 2 mm noncalcified nodule identified in the left lung base, of doubtful clinical significance the absence of significant past medical history. Professional society recommendation as follows: Nodule Size <6 mm Low-Risk Patient: No routine follow-up Nodule Size <6 mm High-Risk Patient: Optional CT at 12 months Patient has end-stage renal disease. No renal cyst is seen. 4. An addendum will be dictated regarding the non-vascular findings by the Paper Colorer Radiologist. Signed: Nik Mensah Verified Date/Time: 01/06/2020 09:04:57 Reading Location: [place] [id number] CT Reading Room MEGALOVIRUS ANTIBODY, IGG 2019-04-03 10:53:00 Test Item Value Reference Range Interpretation Comme nts CYTOMEGALOVIRUS, IGG (BEAKER) (test code = 3429) Negative Negat vera, Equivocal CMV IgG Result Interpretation: </= 0.8 Al Negative 0.9-1.0 Al Equivocal >/=1.1 Al PositiveCYTOMEGALOVIRUS ANTIBODY, [id number] 10:53:00 Test Item Value Reference Range Interpretation Comments CYTOMEGALOVIRUS IGM ANTIBODY Negative Negative, Equivocal (BEAKER) (test code = 3437) CMV IgM Result Interpretation: </= 0.8 Al Negative 0.9-1.0 Al Equivocal >/= 1.1 Al PositiveEBV ANTIBODY, [id number] 10:53:00 Test Item Value Reference Range Interpretation Comments HARJIT BRIONES VIRAL CAPSID Positive Negative, Equivocal A ANTIGEN IGG (BEAKER) (test code = 3415) Harjit Briones Viral Capsid Antigen IgG Result Interpretation: </= 0.8 Al Negative 0.9-1.0 Al Equivocal >/= 1.1 Al PositiveEBV ANTIBODY, IGM 2019-04-03 10:53:00 Test Item Value Reference Range Interpretation Comments HARJIT BRIONES VIRAL CAPSID Negative Negative, Equivocal ANTIGEN IGM (BEAKER) (test code = 3418) Harjit Briones Viral Capsid Antigen IgM Result Interpretation: </= 0.8 Al Negative 0.9-1.0 Al Equivocal >/= 1.1 Al PositiveVARICELLA ZOSTER ANTIBODY, [id number] 10:53:00 Test Item Value Reference Range Interpretation Comments VARICELLA ZOSTER IGG (AL) (BEAKER) 4.0 (test code = 3197) VARICELLA ZOSTER RESULT INTERPRETATIONS: <=0.8 Al Nonreactive: Presumed non-immune to VZV 0.9-1.0 Al Equivocal >=1.1 Al Reactive: Presumed immune to VZVURINE [id number] 09:35:00 Test Item Value Reference Range Interpretation Comments CULTURE (BEAKER) (test <10,000 col/mL skin code = 1095) natasha HIV-1 PCR, [id number] 13:28:00 Test Item Value Reference Range Interpretation Comments HIV-1 RESULT HIV RNA not detected HIV RNA not detected COMPONENT (BEAKER) (test code = 2703) This test uses a Real-Time Polymerase Chain Reaction (RT-PCR) methodology to detect a highly conserved region of the HIV-1 gag gene and was performed using the TAZ AmpliPrep/TAZ TaqMan HIV-1 test kit version 2.0 ([employer]Reportable range for this assay is 20 - 10,000,000 copies per mL (1.3 - 7.0 Log copies/mL).[id number] 13:08:00 Test Item Value Reference Range Interpretation Comments RPR SCREEN (BEAKER) (test code = Nonreactive Nonreactive 420) HEPATITIS B SURFACE [id number] 19:46:00 Test Item Value Reference Range Interpretation Comments HEPATITIS B SURFACE ANTIGEN (2) Nonreactive Nonreactive (BEAKER) (test code = 2585) HEPATITIS B CORE ANTIBODY, [id number] 19:46:00 Test Item Value Reference Range Interpretation Comments HEPATITIS B CORE IGM ANTIBODY Nonreactive Nonreactive (BEAKER) (test code = 645) HEPATITIS C [id number] 19:46:00 Test Item Value Reference Range Interpretation Comments HEPATITIS C ANTIBODY (BEAKER) Nonreactive Nonreactive (test code = 367) HIV-1 ANTIGEN WITH HIV-1/2 [id number] 19:46:00 Test Item Value Reference Range Interpretation Comments HIV-1 ANTIGEN WITH HIV 1\\T\\2 Nonreactive Nonreactive ANTIBODY (2) (BEAKER) (test code = 2586) HEPATITIS B SURFACE [id number] 19:46:00 Test Item Value Reference Range Interpretation Comments HEPATITIS B SURFACE ANTIBODY < mIU/mL <8.0 (BEAKER) (test code = 647) [id number] 19:33:00 Test Item Value Reference Range Interpretation Comments PROSTATE SPECIFIC ANTIGEN (BEAKER) 1.5 ng/mL 0.0-4.0 (test code = 844) LACTATE DEHYDROGENASE (LDH)2019-04-01 19:11:00 Test Item Value Reference Range Interpretation Comments LACTATE DEHYDROGENASE (BEAKER) (test 241 U/L 125-220 H code = 635) HEMOGLOBIN [id number] 18:56:00 Test Item Value Reference Range Interpretation Comments HEMOGLOBIN A1C (BEAKER) (test code = 7.5 % 4.3-6.1 H 368) URINALYSIS W/ [id number] 17:16:00 Test Item Value Reference Range Interpretation Comments COLOR (BEAKER) (test code = 470) Yellow CLARITY (BEAKER) (test code = 469) Hazy SPECIFIC GRAVITY UA (BEAKER) (test 1.018 1.001-1.035 code = 468) PH UA (BEAKER) (test code = 467) 5.5 5.0-8.0 PROTEIN UA (BEAKER) (test code = 200 mg/dL Negative A 464) GLUCOSE UA (BEAKER) (test code = 150 mg/dL Negative A 365) KETONES UA (BEAKER) (test code = Negative Negative 371) BILIRUBIN UA (BEAKER) (test code = Negative Negative 462) BLOOD UA (BEAKER) (test code = 461) Negative Negative NITRITE UA (BEAKER) (test code = Negative Negative 465) LEUKOCYTE ESTERASE UA (BEAKER) Moderate Negative A (test code = 466) UROBILINOGEN UA (BEAKER) (test code 0.2 mg/dL 0.2-1.0 = 463) RBC UA (BEAKER) (test code = 519) 2 /HPF WBC UA (BEAKER) (test code = 520) 20 /HPF MUCUS (BEAKER) (test code = 1574) Rare SQUAMOUS EPITHELIAL (BEAKER) (test 4 /HPF code = 516) HYALINE CASTS (BEAKER) (test code = 16 /LPF 514) AMORPHOUS CRYSTALS (BEAKER) (test Rare code = 1584) SOURCE(BEAKER) (test code = 2795) COMPREHENSIVE METABOLIC [id number] 16:36:00 Test Item Value Reference Range Interpretation Comments TOTAL PROTEIN 7.9 gm/dL 6.0-8.3 (BEAKER) (test code = 770) ALBUMIN (BEAKER) 4.1 g/dL 3.5-5.0 (test code = 1145) ALKALINE PHOSPHATASE 114 U/L 40-150 (BEAKER) (test code = 346) BILIRUBIN TOTAL 0.5 mg/dL 0.2-1.2 (BEAKER) (test code = 377) SODIUM (BEAKER) (test 132 meq/L 136-145 L code = 381) POTASSIUM (BEAKER) 4.7 meq/L 3.5-5.1 (test code = 379) CHLORIDE (BEAKER) 98 meq/L 98-107 (test code = 382) CO2 (BEAKER) (test 24 meq/L 22-29 code = 355) BLOOD UREA NITROGEN 51 mg/dL 7-21 H (BEAKER) (test code = 354) CREATININE (BEAKER) 6.06 mg/dL 0.57-1.25 H (test code = 358) GLUCOSE RANDOM 254 mg/dL 70-105 H (BEAKER) (test code = 652) CALCIUM (BEAKER) 8.7 mg/dL 8.4-10.2 (test code = 697) AST (SGOT) (BEAKER) 35 U/L 5-34 H (test code = 353) ALT (SGPT) (BEAKER) 40 U/L 6-55 (test code = 347) EGFR (BEAKER) (test 10 mL/min/1.73 ESTIMA JAMIE GFR IS code = 1092) sq m NOT ACCURATE CREATININE CLEARANCE IN PREDICTING GLOMERULAR FILTRATION RATE . ESTIMATED GFR I S NOT APPLICABLE FOR DIALYSIS PATIEN TS. URIC [id number] 16:28:00 Test Item Value Reference Range Interpretation Comments URIC ACID (BEAKER) (test code = 6.7 mg/dL 2.6-7.2 773) [id number] 16:28:00 Test Item Value Reference Range Interpretation Comments PHOSPHORUS (BEAKER) (test code = 5.9 mg/dL 2.3-4.7 H 604) GAMMA GLUTAMYL TRANSFERASE (GGT)2019-04-01 16:28:00 Test Item Value Reference Range Interpretation Comments GAMMA GLUTAMYL TRANSFERASE (BEAKER) 40 U/L 9-64 (test code = 364) PTH, [id number] 16:28:00 Test Item Value Reference Range Interpretation Comments PARATHYROID HORMONE INTACT 179.6 pg/mL 8.5-72.5 H (BEAKER) (test code = 577) [id number] 16:13:00 Test Item Value Reference Range Interpretation Comments PROTIME (BEAKER) (test code = 13.1 seconds 11.9-14.2 759) INR (BEAKER) (test code = 370) 1.0 <=5.9 PARTIAL THROMBOPLASTIN TIME 35.1 seconds 22.5-36.0 (BEAKER) (test code = 760) Effective 11/06/2018: PT Reference Range ChangeNew: 11.9-14.2 Previous: 11.7- 14.7RECOMMENDED COUMADIN/WARFARIN INR THERAPY RANGESSTANDARD DOSE: 2.0-3.0 Includes: PROPHYLAXIS for venous thrombosis, systemic embolization; TREATMENT for venous thrombosis and/or pulmonary embolus.HIGH RISK: Target INR is2.5-3.5 for patients wiht mechanical heart valves.CBC W/PLT COUNT & AUTO [id number] 15:59:00 Test Item Value Reference Range Interpretation Comments WHITE BLOOD CELL COUNT (BEAKER) 5.3 K/ L 3.5-10.5 (test code = 775) RED BLOOD CELL COUNT (BEAKER) 2.97 M/ L 4.63-6.08 L (test code = 761) HEMOGLOBIN (BEAKER) (test code = 10.4 GM/DL 13.7-17.5 L 410) HEMATOCRIT (BEAKER) (test code = 31.0 % 40.1-51.0 L 411) MEAN CORPUSCULAR VOLUME (BEAKER) 104.4 fL 79.0-92.2 H (test code = 753) MEAN CORPUSCULAR HEMOGLOBIN 35.0 pg 25.7-32.2 H (BEAKER) (test code = 751) MEAN CORPUSCULAR HEMOGLOBIN CONC 33.5 GM/DL 32.3-36.5 (BEAKER) (test code = 752) RED CELL DISTRIBUTION WIDTH 13.7 % 11.6-14.4 (BEAKER) (test code = 412) PLATELET COUNT (BEAKER) (test 269 K/CU MM 150-450 code = 756) MEAN PLATELET VOLUME (BEAKER) 8.6 fL 9.4-12.4 L (test code = 754) NUCLEATED RED BLOOD CELLS 0 /100 WBC 0-0 (BEAKER) (test code = 413) NEUTROPHILS RELATIVE PERCENT 66 % (BEAKER) (test code = 429) LYMPHOCYTES RELATIVE PERCENT 17 % (BEAKER) (test code = 430) MONOCYTES RELATIVE PERCENT 10 % (BEAKER) (test code = 431) EOSINOPHILS RELATIVE PERCENT 5 % (BEAKER) (test code = 432) BASOPHILS RELATIVE PERCENT 1 % (BEAKER) (test code = 437) NEUTROPHILS ABSOLUTE COUNT 3.50 K/ L 1.78-5.38 (BEAKER) (test code = 670) LYMPHOCYTES ABSOLUTE COUNT 0.91 K/ L 1.32-3.57 L (BEAKER) (test code = 414) MONOCYTES ABSOLUTE COUNT (BEAKER) 0.55 K/ L 0.30-0.82 (test code = 415) EOSINOPHILS ABSOLUTE COUNT 0.25 K/ L 0.04-0.54 (BEAKER) (test code = 416) BASOPHILS ABSOLUTE COUNT (BEAKER) 0.06 K/ L 0.01-0.08 (test code = 417) IMMATURE GRANULOCYTES-RELATIVE 0 % 0-1 PERCENT (BEAKER) (test code = 2801) POTASSIUM-STAT [id number] 09:11:00 Test Item Value Reference Range Interpretation Comments POTASSIUM (BEAKER) (test code = 4.5 meq/L 3.6-5.5 379) GLUCOSE-STAT [id number] 09:11:00 Test Item Value Reference Range Interpretation Comments GLUCOSE RANDOM (BEAKER) (test code 249 mg/dL 70-110 H = 652) HGB/HCT (H&H) - STAT [id number] 09:11:00 Test Item Value Reference Range Interpretation Comments HEMOGLOBIN (BEAKER) (test code = 12.8 g/dL 13.0-16.8 L 410) HEMATOCRIT (BEAKER) (test code = 38.0 % 40.0-50.0 L 411) GLUCOSE-STAT [id number] 07:10:00 Test Item Value Reference Range Interpretation Comments GLUCOSE RANDOM (BEAKER) (test code 260 mg/dL 70-110 H = 652) HGB/HCT (H&H) - STAT [id number] 07:10:00 Test Item Value Reference Range Interpretation Comments HEMOGLOBIN (BEAKER) (test code = 11.4 g/dL 13.0-16.8 L 410) HEMATOCRIT (BEAKER) (test code = 34.0 % 40.0-50.0 L 411) POTASSIUM-STAT [id number] 07:09:00 Test Item Value Reference Range Interpretation Comments POTASSIUM (BEAKER) (test code = 4.3 meq/L 3.6-5.5 379) HEMOGLOBIN AND [id number] 13:19:00 Test Item Value Reference Range Interpretation Comments HEMOGLOBIN (BEAKER) (test code = 10.4 GM/DL 13.7-17.5 L 410) HEMATOCRIT (BEAKER) (test code = 30.1 % 40.1-51.0 L 411) ANG, AV-SHUNT, CATH INTRO WITH [id number] 11:27:00Right arm av fistulogramReason for Exam:->esrdAddendum BeginsREPORT STATUS:A Addendum: March 06, 2019 at 11:30 AM The previously described stenosis in the primary draining cephalic vein measured approximately 40-50%. Following balloon dilatation, no significant residual stenosis is identified. The report is otherwise unchanged. Signed: Shari Dunbar MDReport Verified Date/Time: 03/06/2019 11:27:18 Reading Location: [facility] Diagnostic Imaging Reading Room - [facility] [id number] EndsFINAL REPORT History: End-stage renal disease, poorly maturing right upper extremity AV fistula. PROCEDURE: Following informed written consent, the patient's right upper extremity and AV graft site were prepped anddraped in the usual sterile manner. 2% lidocaine was given locally for anesthesia. Additionally, thepatient received 1 mg IV Versed and 50 mcg IV fentanyl for conscious sedation and pain control. Vital signs were monitored and remained stable. Conscious sedation and continuous patient monitoring wereprovided by the attending radiologist and a registered nurse for approximately 75 minutes during theprocedure. Access was gained to the AV fistula initially toward the arterial anastomosis. Micropunctu re sheath was placed over a wire into the fistula near the arch L anastomosis and used to perform a fistulogram and central venography. The arterial anastomosis was then carefully crossed with an 035 angled Glidewire and Berenstein catheter. Repeat interrogation of the arterial anastomosis was performed. The catheter was then removed and hemostasis achieved at the access site using manual compression. A second access site was then gained near the arterial anastomosis directed centrally. A 5 Beninese sheath was placed at the access site. The patient was given 3000 units of IV heparin. The cephalic vein stenosis described below was dilated using a 6 mm x 10 cm balloon. Repeat fistulogram and venography were performed following balloon dilatation. At the conclusion of the procedure, the catheter sheath and wire were removed and hemostasis achieved using manual compression. Overall, the patient tolerated the procedure well without immediate complications and was discharged from the department in stable condition. FINDINGS: Right upper extremity AV fistulogram demonstrates a patent brachial artery tocephalic vein fistula with brisk flow. The arterial anastomosis is patent without hemodynamically significant focal stenosis. There is a perforating collateral branch originating several centimeters proximal to the arterial anastomosis, just above the elbow which provides reconstituted flow to the brachial basilic vein is system centrally. Primary draining vein is the cephalic vein which is mildly prominent. There is a mild long segment stenosis of the primary draining cephalic vein just distal to the origin of the perforating branch described above. This is the area that was dilated using a 6 mm balloon. After balloon dilatation, there is significant improvement in angiographic appearance withoutsignificant residual stenosis identified. Centrally, the axillary and subclavian veins are patent. No central venous stenosis. IMPRESSION: 1. Patent right upper extremity brachial artery to cephalic vein fistula. Mild long segment stenosis of the primary draining cephalic vein was dilated just distal to a perforating collateral branch providing reconstituted flow centrally to the brachial basilic system. Total fluoroscopy time: 7.4 minutes. Estimated total patient dose reported as (Ka,r): 43 mGy Signed: Shari Dunbar MDReport Verified Date/Time: 03/05/2019 15:49:42 Reading Location: [place] [address] Angio Body Reading Room BASIC METABOLIC [id number] 11:43:00 Test Item Value Reference Range Interpretation Comments SODIUM (BEAKER) 139 meq/L 136-145 (test code = 381) POTASSIUM (BEAKER) 5.3 meq/L 3.5-5.1 H (test code = 379) CHLORIDE (BEAKER) 102 meq/L 98-107 (test code = 382) CO2 (BEAKER) (test 26 meq/L 22-29 code = 355) BLOOD UREA NITROGEN 45 mg/dL 7-21 H (BEAKER) (test code = 354) CREATININE (BEAKER) 5.14 mg/dL 0.57-1.25 H (test code = 358) GLUCOSE RANDOM 242 mg/dL 70-105 H (BEAKER) (test code = 652) CALCIUM (BEAKER) 8.8 mg/dL 8.4-10.2 (test code = 697) EGFR (BEAKER) (test 12 mL/min/1.73 ESTIMA JAMIE GFR IS code = 1092) sq m NOT ACCURATE CREATININE CLEARANCE IN PREDICTING GLOMERULAR FILTRATION RATE . ESTIMATED GFR I S NOT APPLICABLE FOR DIALYSIS PATIEN TS. PROTHROMBIN [id number] 11:19:00 Test Item Value Reference Range Interpretation Comments PROTIME (BEAKER) (test code = 12.4 seconds 11.9-14.2 759) INR (BEAKER) (test code = 370) 1.0 <=5.9 Effective 11/06/2018: PT Reference Range ChangeNew: 11.9-14.2 Previous: 11.7- 14.7RECOMMENDED COUMADIN/WARFARIN INR THERAPY RANGESSTANDARD DOSE: 2.0-3.0 Includes: PROPHYLAXIS for venous thrombosis, systemic embolization; TREATMENT for venous thrombosis and/or pulmonary embolus.HIGH RISK: Target INR is2.5-3.5 for patients wiht mechanical heart valves.[id number] 11:19:00 Test Item Value Reference Range Interpretation Comments PARTIAL THROMBOPLASTIN TIME 32.6 seconds 22.5-36.0 (BEAKER) (test code = 760) CBC W/PLT COUNT & AUTO [id number] 11:15:00 Test Item Value Reference Range Interpretation Comments WHITE BLOOD CELL COUNT (BEAKER) 7.5 K/ L 3.5-10.5 (test code = 775) RED BLOOD CELL COUNT (BEAKER) 3.04 M/ L 4.63-6.08 L (test code = 761) HEMOGLOBIN (BEAKER) (test code = 10.6 GM/DL 13.7-17.5 L 410) HEMATOCRIT (BEAKER) (test code = 31.7 % 40.1-51.0 L 411) MEAN CORPUSCULAR VOLUME (BEAKER) 104.3 fL 79.0-92.2 H (test code = 753) MEAN CORPUSCULAR HEMOGLOBIN 34.9 pg 25.7-32.2 H (BEAKER) (test code = 751) MEAN CORPUSCULAR HEMOGLOBIN CONC 33.4 GM/DL 32.3-36.5 (BEAKER) (test code = 752) RED CELL DISTRIBUTION WIDTH 13.6 % 11.6-14.4 (BEAKER) (test code = 412) PLATELET COUNT (BEAKER) (test 241 K/CU MM 150-450 code = 756) MEAN PLATELET VOLUME (BEAKER) 8.2 fL 9.4-12.4 L (test code = 754) NUCLEATED RED BLOOD CELLS 0 /100 WBC 0-0 (BEAKER) (test code = 413) NEUTROPHILS RELATIVE PERCENT 72 % (BEAKER) (test code = 429) LYMPHOCYTES RELATIVE PERCENT 13 % (BEAKER) (test code = 430) MONOCYTES RELATIVE PERCENT 10 % (BEAKER) (test code = 431) EOSINOPHILS RELATIVE PERCENT 4 % (BEAKER) (test code = 432) BASOPHILS RELATIVE PERCENT 0 % (BEAKER) (test code = 437) NEUTROPHILS ABSOLUTE COUNT 5.39 K/ L 1.78-5.38 H (BEAKER) (test code = 670) LYMPHOCYTES ABSOLUTE COUNT 0.99 K/ L 1.32-3.57 L (BEAKER) (test code = 414) MONOCYTES ABSOLUTE COUNT (BEAKER) 0.75 K/ L 0.30-0.82 (test code = 415) EOSINOPHILS ABSOLUTE COUNT 0.26 K/ L 0.04-0.54 (BEAKER) (test code = 416) BASOPHILS ABSOLUTE COUNT (BEAKER) 0.03 K/ L 0.01-0.08 (test code = 417) IMMATURE GRANULOCYTES-RELATIVE 1 % 0-1 PERCENT (BEAKER) (test code = 2801) POTASSIUM-STAT [id number] 15:04:00 Test Item Value Reference Range Interpretation Comments POTASSIUM (BEAKER) (test code = 5.6 meq/L 3.6-5.5 H 379) GLUCOSE-STAT [id number] 15:04:00 Test Item Value Reference Range Interpretation Comments GLUCOSE RANDOM (BEAKER) (test code 149 mg/dL 70-110 H = 652) HGB/HCT (H&H) - STAT [id number] 15:04:00 Test Item Value Reference Range Interpretation Comments HEMOGLOBIN (BEAKER) (test code = 12.9 g/dL 13.0-16.8 L 410) HEMATOCRIT (BEAKER) (test code = 38.0 % 40.0-50.0 L 411) HGB/HCT (H&H) - STAT [id number] 09:47:00 Test Item Value Reference Range Interpretation Comments HEMOGLOBIN (BEAKER) (test code = 13.2 g/dL 13.0-16.8 410) HEMATOCRIT (BEAKER) (test code = 39.0 % 40.0-50.0 L 411) GLUCOSE-STAT [id number] 09:47:00 Test Item Value Reference Range Interpretation Comments GLUCOSE RANDOM (BEAKER) (test code 162 mg/dL 70-110 H = 652) POTASSIUM-STAT [id number] 09:46:00 Test Item Value Reference Range Interpretation Comments POTASSIUM (BEAKER) (test code = 4.6 meq/L 3.6-5.5 379) AFB CULTURE + [id number] 07:33:00 Test Item Value Reference Range Interpretation Comments CULTURE (BEAKER) (test No acid-fast bacilli code = 1095) isolated in 42 days AFB SMEAR (BEAKER) No acid fast bacilli (test code = 994) seen FUNGUS CULTURE + [id number] 17:26:00 Test Item Value Reference Range Interpretation Comments CULTURE (BEAKER) (test No fungus isolated in code = 1095) 28 days FUNGUS SMEAR (BEAKER) No fungi seen (test code = 1406) BODY FLUID CULTURE + GRAM [id number] 10:47:00 Test Item Value Reference Range Interpretation Comments CULTURE (BEAKER) PSEUDOMONAS A <1+ Pseudom onas (test code = 1095) AERUGINOSA aeruginos a Amikacin (test code Susceptible 0-16 S = 1) , Resistant <0 or >16 Aztreonam (test R code = 32) Cefepime (test code Susceptible 0-8 S = 51) , Resistant <0 or >8 Ceftazidime (test R code = 27) Ciprofloxacin (test Susceptible S code = 7) 0-0.5 , Resistant <0 or >.5 Gentamicin (test Susceptible 0-4 S code = 18) , Resistant <0 or >4 Levofloxacin (test S code = 22) Meropenem (test R code = 34) Piperacillin (test Susceptible 0-16 R code = 24) , Resistant <0 or >16 Piperacillin + Susceptible 0-16 R Tazobactam (test , Resistant <0 code = 29) or >16 Tobramycin (test Susceptible 0-4 S code = 25) , Resistant <0 or >4 CULTURE (BEAKER) ENTEROCOCCUS A 2+ Enteroco ccus (test code = 1095) SPECIES species Ampicillin (test S code = 26) Linezolid (test S code = 40) Tetracycline (test R code = 2) Vancomycin (test S code = 13) CULTURE (BEAKER) A 2+ Vancomyc in (test code = 1095) resistant Enterococcus species GRAM STAIN RESULT 3+ White blood (BEAKER) (test code cells seen = 1123) GRAM STAIN RESULT <1+ gram negative (BEAKER) (test code rods = 938804) GRAM STAIN RESULT 3+ gram positive (BEAKER) (test code cocci in chains = 816037) and pairs POCT-GLUCOSE [id number] 13:59:00 Test Item Value Reference Range Interpretation Comments POC-GLUCOSE METER 237 mg/dL 70-110 H TESTED AT [facility] ([facility]) (test code = [facility] 1538) [address] HEMOGLOBIN AND [id number] 11:37:00 Test Item Value Reference Range Interpretation Comments HEMOGLOBIN (BEAKER) (test code = 8.6 GM/DL 13.7-17.5 L 410) HEMATOCRIT (AKER) (test code = 25.8 % 40.1-51.0 L 411) Post transfusionPOCT-GLUCOSE [id number] 07:39:00 Test Item Value Reference Range Interpretation Comments POC-GLUCOSE METER 201 mg/dL 70-110 H TESTED AT [facility] [address] ([facility]) (test code = [facility] 1538) [address] BASIC METABOLIC [id number] 06:40:00 Test Item Value Reference Range Interpretation Comments SODIUM (BEAKER) 136 meq/L 136-145 (test code = 381) POTASSIUM (BEAKER) 4.3 meq/L 3.5-5.1 (test code = 379) CHLORIDE (BEAKER) 103 meq/L 98-107 (test code = 382) CO2 (BEAKER) (test 26 meq/L 22-29 code = 355) BLOOD UREA NITROGEN 37 mg/dL 7-21 H (BEAKER) (test code = 354) CREATININE (BEAKER) 4.09 mg/dL 0.57-1.25 H (test code = 358) GLUCOSE RANDOM 183 mg/dL 70-105 H (BEAKER) (test code = 652) CALCIUM (BEAKER) 8.1 mg/dL 8.4-10.2 L (test code = 697) EGFR (BEAKER) (test 15 mL/min/1.73 ESTIMA JAMIE GFR IS code = 1092) sq m NOT ACCURATE CREATININE CLEARANCE IN PREDICTING GLOMERULAR FILTRATION RATE . ESTIMATED GFR I S NOT APPLICABLE FOR DIALYSIS PATIEN TS. CBC (HEMOGRAM ONLY)2018-10-05 06:04:00 Test Item Value Reference Range Interpretation Comments WHITE BLOOD CELL COUNT (BEAKER) 10.0 K/ L 3.5-10.5 (test code = 775) RED BLOOD CELL COUNT (BEAKER) 2.31 M/ L 4.63-6.08 L (test code = 761) HEMOGLOBIN (BEAKER) (test code = 6.9 GM/DL 13.7-17.5 L 410) HEMATOCRIT (BEAKER) (test code = 22.2 % 40.1-51.0 L 411) MEAN CORPUSCULAR VOLUME (BEAKER) 96.1 fL 79.0-92.2 H (test code = 753) MEAN CORPUSCULAR HEMOGLOBIN 29.9 pg 25.7-32.2 (BEAKER) (test code = 751) MEAN CORPUSCULAR HEMOGLOBIN CONC 31.1 GM/DL 32.3-36.5 L (BEAKER) (test code = 752) RED CELL DISTRIBUTION WIDTH 17.0 % 11.6-14.4 H (BEAKER) (test code = 412) PLATELET COUNT (BEAKER) (test 339 K/CU MM 150-450 code = 756) MEAN PLATELET VOLUME (BEAKER) 8.2 fL 9.4-12.4 L (test code = 754) NUCLEATED RED BLOOD CELLS 0 /100 WBC 0-0 (BEAKER) (test code = 413) POCT-GLUCOSE [id number] 21:15:00 Test Item Value Reference Range Interpretation Comments POC-GLUCOSE METER 202 mg/dL 70-110 H TESTED AT [facility] (BEAKER) (test code = [facility] 1538) [address] POCT-GLUCOSE [id number] 18:09:00 Test Item Value Reference Range Interpretation Comments POC-GLUCOSE METER 200 mg/dL 70-110 H TESTED AT [facility] [address] ([facility]) (test code = [facility] 1538) [address] HEMOGLOBIN AND [id number] 17:48:00 Test Item Value Reference Range Interpretation Comments HEMOGLOBIN ([facility]) (test code = 7.4 GM/DL 13.7-17.5 L 410) HEMATOCRIT ([facility]) (test code = 23.0 % 40.1-51.0 L 411) Post transfusionPOCT-GLUCOSE [id number] 12:30:00 Test Item Value Reference Range Interpretation Comments POC-GLUCOSE METER 329 mg/dL 70-110 H Notified R Ruma JUNE/TESTED ([facility]) (test code = AT [facility] [address] [facility] 7[address] 0 TISSUE [id number] 11:44:00Surgical Pathology Report Case: [id number] Authorizing Provider: Shari Chatman MD Collected: 09/30/2018 1343 Ordering Location: [address] Received: 09/30/2018 1444 Service Pathologist: Andrea Niño MD Specimen: Leg, Right, RIGHT AKA A. EXTREMITY, RIGHT LOWER LEG, ABOVE KNEE AMPUTATION: - VIABLE SKIN, SOFT TISSUE AND BONE MARGINS - SKIN AND SOFT TISSUE TISSUE WITH GANGRENOUS NECROSIS AND ABSCESS FORMATION - UNDERLYING BONE WITH CHRONIC OSTEOMYELITIS - MODERATE CALCIFIC ATHEROSCLEROSIS Signing Pathologist Direct Phone Line: [phone] signed by Andrea Niño MD on 10/04/2018 at 11:44 AMPreliminary result elect ronically signed by Andrea Niño MD on 10/02/2018 at 2:44 [id number]. Right legA. Received fresh, labeled with the patient's information and "right leg" is an right leg amputation that measures 27.5 cm from distal toe to heel, 47 cm from heel to knee joint and 13.5 cm from knee joint to soft tissue margin. A femoral bone that measures 2.4 cm extends beyond the soft tissue margin. The skin, soft tissue and bone at the margin appear viable. There is a 10.5 cm skin linear defect over the knee that contains an abscess within the soft tissue. The skin over the heel is caro dark and necrotic. The toes do not display any lesion. The rest of the skin is caro-brown without lesion. Mobile Home Installer sections are submitted as follows: Section code: A1, skin, soft tissue and vascular margin; A2, bone margin following decalcification; A3, skin and knee abscess; A4, skin at the heel; A5, bone at the heel. /plA7-9, additional bone sections from underneath skin lesion. /plPerformed.POCT-GLUCOSE [id number] 09:03:00 Test Item Value Reference Range Interpretation Comments POC-GLUCOSE METER 160 mg/dL 70-110 H TESTED AT [facility] (BEAKER) (test code = [place] 1538) [address] BASIC METABOLIC [id number] 05:33:00 Test Item Value Reference Range Interpretation Comments SODIUM (BEAKER) 136 meq/L 136-145 (test code = 381) POTASSIUM (BEAKER) 4.1 meq/L 3.5-5.1 (test code = 379) CHLORIDE (BEAKER) 104 meq/L 98-107 (test code = 382) CO2 (BEAKER) (test 25 meq/L 22-29 code = 355) BLOOD UREA NITROGEN 24 mg/dL 7-21 H (BEAKER) (test code = 354) CREATININE (BEAKER) 3.16 mg/dL 0.57-1.25 H (test code = 358) GLUCOSE RANDOM 150 mg/dL 70-105 H (BEAKER) (test code = 652) CALCIUM (BEAKER) 7.9 mg/dL 8.4-10.2 L (test code = 697) EGFR (BEAKER) (test 20 mL/min/1.73 ESTIMA JAMIE GFR IS code = 1092) sq m NOT ACCURATE CREATININE CLEARANCE IN PREDICTING GLOMERULAR FILTRATION RATE . ESTIMATED GFR I S NOT APPLICABLE FOR DIALYSIS PATIEN TS. CBC W/PLT COUNT & AUTO [id number] 05:17:00 Test Item Value Reference Range Interpretation Comments WHITE BLOOD CELL COUNT (BEAKER) 11.6 K/ L 3.5-10.5 H (test code = 775) RED BLOOD CELL COUNT (BEAKER) 1.92 M/ L 4.63-6.08 L (test code = 761) HEMOGLOBIN (BEAKER) (test code = 6.0 GM/DL 13.7-17.5 LL 410) HEMATOCRIT (BEAKER) (test code = 19.3 % 40.1-51.0 L 411) MEAN CORPUSCULAR VOLUME (BEAKER) 100.5 fL 79.0-92.2 H (test code = 753) MEAN CORPUSCULAR HEMOGLOBIN 31.3 pg 25.7-32.2 (BEAKER) (test code = 751) MEAN CORPUSCULAR HEMOGLOBIN CONC 31.1 GM/DL 32.3-36.5 L (BEAKER) (test code = 752) RED CELL DISTRIBUTION WIDTH 14.7 % 11.6-14.4 H (BEAKER) (test code = 412) PLATELET COUNT (BEAKER) (test 294 K/CU MM 150-450 code = 756) MEAN PLATELET VOLUME (BEAKER) 7.9 fL 9.4-12.4 L (test code = 754) NUCLEATED RED BLOOD CELLS 0 /100 WBC 0-0 (BEAKER) (test code = 413) NEUTROPHILS RELATIVE PERCENT 78 % (BEAKER) (test code = 429) LYMPHOCYTES RELATIVE PERCENT 10 % (BEAKER) (test code = 430) MONOCYTES RELATIVE PERCENT 9 % (BEAKER) (test code = 431) EOSINOPHILS RELATIVE PERCENT 2 % (BEAKER) (test code = 432) BASOPHILS RELATIVE PERCENT 0 % (BEAKER) (test code = 437) NEUTROPHILS ABSOLUTE COUNT 9.03 K/ L 1.78-5.38 H (BEAKER) (test code = 670) LYMPHOCYTES ABSOLUTE COUNT 1.14 K/ L 1.32-3.57 L (BEAKER) (test code = 414) MONOCYTES ABSOLUTE COUNT (BEAKER) 1.02 K/ L 0.30-0.82 H (test code = 415) EOSINOPHILS ABSOLUTE COUNT 0.23 K/ L 0.04-0.54 (BEAKER) (test code = 416) BASOPHILS ABSOLUTE COUNT (BEAKER) 0.04 K/ L 0.01-0.08 (test code = 417) IMMATURE GRANULOCYTES-RELATIVE 1 % 0-1 PERCENT (BEAKER) (test code = 2801) POCT-GLUCOSE [id number] 21:37:00 Test Item Value Reference Range Interpretation Comments POC-GLUCOSE METER 289 mg/dL 70-110 H TESTED AT [facility] (BEAKER) (test code = [place] 1538) [address] POCT-GLUCOSE [id number] 13:14:00 Test Item Value Reference Range Interpretation Comments POC-GLUCOSE METER 183 mg/dL 70-110 H TESTED AT [facility] 6720 (BEAKER) (test code = [place] 1538) [address] COMPREHENSIVE METABOLIC [id number] 10:24:00 Test Item Value Reference Range Interpretation Comments TOTAL PROTEIN 6.6 gm/dL 6.0-8.3 (BEAKER) (test code = 770) ALBUMIN (BEAKER) 2.7 g/dL 3.5-5.0 L (test code = 1145) ALKALINE PHOSPHATASE 92 U/L 40-150 (BEAKER) (test code = 346) BILIRUBIN TOTAL 0.2 mg/dL 0.2-1.2 (BEAKER) (test code = 377) SODIUM (BEAKER) (test 137 meq/L 136-145 code = 381) POTASSIUM (BEAKER) 4.5 meq/L 3.5-5.1 (test code = 379) CHLORIDE (BEAKER) 102 meq/L 98-107 (test code = 382) CO2 (BEAKER) (test 25 meq/L 22-29 code = 355) BLOOD UREA NITROGEN 37 mg/dL 7-21 H (BEAKER) (test code = 354) CREATININE (BEAKER) 4.43 mg/dL 0.57-1.25 H (test code = 358) GLUCOSE RANDOM 198 mg/dL 70-105 H (BEAKER) (test code = 652) CALCIUM (BEAKER) 8.1 mg/dL 8.4-10.2 L (test code = 697) AST (SGOT) (BEAKER) 29 U/L 5-34 (test code = 353) ALT (SGPT) (BEAKER) 8 U/L 6-55 (test code = 347) EGFR (BEAKER) (test 14 mL/min/1.73 ESTIMA JAMIE GFR IS code = 1092) sq m NOT ACCURATE CREATININE CLEARANCE IN PREDICTING GLOMERULAR FILTRATION RATE . ESTIMATED GFR I S NOT APPLICABLE FOR DIALYSIS PATIEN TS. [id number] 10:08:00 Test Item Value Reference Range Interpretation Comments PHOSPHORUS (BEAKER) (test code = 5.1 mg/dL 2.3-4.7 H 604) [id number] 10:08:00 Test Item Value Reference Range Interpretation Comments MAGNESIUM (BEAKER) (test code = 1.9 mg/dL 1.6-2.6 627) CALCIUM, [id number] 10:04:00 Test Item Value Reference Range Interpretation Comments CALCIUM IONIZED (BEAKER) (test 1.06 mmol/L 1.12-1.27 L code = 698) PH, BLOOD (BEAKER) (test code = 7.37 1810) CBC W/PLT COUNT & AUTO [id number] 09:50:00 Test Item Value Reference Range Interpretation Comments WHITE BLOOD CELL COUNT (BEAKER) 15.2 K/ L 3.5-10.5 H (test code = 775) RED BLOOD CELL COUNT (BEAKER) 1.98 M/ L 4.63-6.08 L (test code = 761) HEMOGLOBIN (BEAKER) (test code = 6.3 GM/DL 13.7-17.5 L 410) HEMATOCRIT (BEAKER) (test code = 19.8 % 40.1-51.0 L 411) MEAN CORPUSCULAR VOLUME (BEAKER) 100.0 fL 79.0-92.2 H (test code = 753) MEAN CORPUSCULAR HEMOGLOBIN 31.8 pg 25.7-32.2 (BEAKER) (test code = 751) MEAN CORPUSCULAR HEMOGLOBIN CONC 31.8 GM/DL 32.3-36.5 L (BEAKER) (test code = 752) RED CELL DISTRIBUTION WIDTH 15.1 % 11.6-14.4 H (BEAKER) (test code = 412) PLATELET COUNT (BEAKER) (test 350 K/CU MM 150-450 code = 756) MEAN PLATELET VOLUME (BEAKER) 8.1 fL 9.4-12.4 L (test code = 754) NUCLEATED RED BLOOD CELLS 0 /100 WBC 0-0 (BEAKER) (test code = 413) NEUTROPHILS RELATIVE PERCENT 83 % (BEAKER) (test code = 429) LYMPHOCYTES RELATIVE PERCENT 7 % (BEAKER) (test code = 430) MONOCYTES RELATIVE PERCENT 8 % (BEAKER) (test code = 431) EOSINOPHILS RELATIVE PERCENT 2 % (BEAKER) (test code = 432) BASOPHILS RELATIVE PERCENT 0 % (BEAKER) (test code = 437) NEUTROPHILS ABSOLUTE COUNT 12.57 K/ L 1.78-5.38 H (BEAKER) (test code = 670) LYMPHOCYTES ABSOLUTE COUNT 1.01 K/ L 1.32-3.57 L (BEAKER) (test code = 414) MONOCYTES ABSOLUTE COUNT (BEAKER) 1.19 K/ L 0.30-0.82 H (test code = 415) EOSINOPHILS ABSOLUTE COUNT 0.23 K/ L 0.04-0.54 (BEAKER) (test code = 416) BASOPHILS ABSOLUTE COUNT (BEAKER) 0.04 K/ L 0.01-0.08 (test code = 417) IMMATURE GRANULOCYTES-RELATIVE 1 % 0-1 PERCENT (BEAKER) (test code = 2801) POCT-GLUCOSE [id number] 09:29:00 Test Item Value Reference Range Interpretation Comments POC-GLUCOSE METER 214 mg/dL 70-110 H TESTED AT [place] [address] ([facility]) (test code = [facility] May [facility] 1538) [address] POCT-GLUCOSE [id number] 08:49:00 Test Item Value Reference Range Interpretation Comments POC-GLUCOSE METER 191 mg/dL 70-110 H TESTED AT [place] [address] ([facility]) (test code = [facility] May [facility] 1538) [address] POCT-GLUCOSE [id number] 21:55:00 Test Item Value Reference Range Interpretation Comments POC-GLUCOSE METER 217 mg/dL 70-110 H TESTED AT [place] [address] ([facility]) (test code = CLA[facility] May [facility] 1538) [address] POCT-GLUCOSE [id number] 18:11:00 Test Item Value Reference Range Interpretation Comments POC-GLUCOSE METER 195 mg/dL 70-110 H TESTED AT [place] [address] ([facility]) (test code = [facility] May [facility] 1538) [address] POCT-GLUCOSE [id number] 16:52:00 Test Item Value Reference Range Interpretation Comments POC-GLUCOSE METER 234 mg/dL 70-110 H TESTED AT [place] [address] ([facility]) (test code = [facility] May [facility] 1538) [address] POCT-GLUCOSE [id number] 06:14:00 Test Item Value Reference Range Interpretation Comments POC-GLUCOSE METER 232 mg/dL 70-110 H TESTED AT [facility] [address] (BEAKER) (test code = [place] 1538) [address] BASIC METABOLIC [id number] 04:33:00 Test Item Value Reference Range Interpretation Comments SODIUM (BEAKER) 136 meq/L 136-145 (test code = 381) POTASSIUM (BEAKER) 3.9 meq/L 3.5-5.1 (test code = 379) CHLORIDE (BEAKER) 100 meq/L 98-107 (test code = 382) CO2 (BEAKER) (test 27 meq/L 22-29 code = 355) BLOOD UREA NITROGEN 21 mg/dL 7-21 (BEAKER) (test code = 354) CREATININE (BEAKER) 2.51 mg/dL 0.57-1.25 H (test code = 358) GLUCOSE RANDOM 201 mg/dL 70-105 H (BEAKER) (test code = 652) CALCIUM (BEAKER) 8.3 mg/dL 8.4-10.2 L (test code = 697) EGFR (BEAKER) (test 27 mL/min/1.73 ESTIMA JAMIE GFR IS code = 1092) sq m NOT ACCURATE CREATININE CLEARANCE IN PREDICTING GLOMERULAR FILTRATION RATE . ESTIMATED GFR I S NOT APPLICABLE FOR DIALYSIS PATIEN TS. CBC (HEMOGRAM ONLY)2018-10-02 04:00:00 Test Item Value Reference Range Interpretation Comments WHITE BLOOD CELL COUNT (BEAKER) 19.4 K/ L 3.5-10.5 H (test code = 775) RED BLOOD CELL COUNT (BEAKER) 2.56 M/ L 4.63-6.08 L (test code = 761) HEMOGLOBIN (BEAKER) (test code = 8.1 GM/DL 13.7-17.5 L 410) HEMATOCRIT (BEAKER) (test code = 24.8 % 40.1-51.0 L 411) MEAN CORPUSCULAR VOLUME (BEAKER) 96.9 fL 79.0-92.2 H (test code = 753) MEAN CORPUSCULAR HEMOGLOBIN 31.6 pg 25.7-32.2 (BEAKER) (test code = 751) MEAN CORPUSCULAR HEMOGLOBIN CONC 32.7 GM/DL 32.3-36.5 (BEAKER) (test code = 752) RED CELL DISTRIBUTION WIDTH 15.1 % 11.6-14.4 H (BEAKER) (test code = 412) PLATELET COUNT (BEAKER) (test 374 K/CU MM 150-450 code = 756) MEAN PLATELET VOLUME (BEAKER) 8.1 fL 9.4-12.4 L (test code = 754) NUCLEATED RED BLOOD CELLS 0 /100 WBC 0-0 (BEAKER) (test code = 413) POCT-GLUCOSE [id number] 17:19:00 Test Item Value Reference Range Interpretation Comments POC-GLUCOSE METER 283 mg/dL 70-110 H TESTED AT [facility] [address] ([facility]) (test code = [facility] 1538) [address] SURGICALLY OBTAINED CULTURE + GRAM [id number] 16:54:00 Test Item Value Reference Range Interpretation Comments CULTURE (BEAKER) A 4+ Same org anism has (test code = been isolated f rom 1095) cultures(s) of the same body site within 3 days. Repeat identification and susceptibility testing performed only after consultation wi th the clinical microb iology laboratory.Refe r to previous cultur e ofEnterococcus species GRAM STAIN 4+ WBCs RESULT (BEAKER) (test code = 1123) GRAM STAIN 4+ gram positive RESULT (BEAKER) cocci in pairs (test code = 950969) GRAM STAIN 2+ gram variable RESULT (AKER) rods (test code = 159348) POCT-GLUCOSE [id number] 12:20:00 Test Item Value Reference Range Interpretation Comments POC-GLUCOSE METER 271 mg/dL 70-110 H TESTED AT [facility] [address] ([facility]) (test code = [facility] May [facility] 1538) [address] TISSUE [id number] 11:23:00Surgical Pathology Report Case: [id number] Authorizing Provider: Shari Chatman MD Collected: 09/26/2018723 Ordering Location: [address] Received: 09/26/2018 0812 Service Pathologist: Jovanny Gutierrez MD Specimen: SoftTissue, Other, KNEE CAP SKIN, BONE AND SOFT TISSUE, RIGHT KNEE, EXCISION: - NECROTIZING ACUTE INFLAMMATION IN SOFT TISSUE - ACUTE OSTEOMYELITIS Signing Pathologist Direct Phone Line: [phone] signed by Jovanny Gutierrez MD on 10/01/2018 at 11:23 [id number], [id number] of right knee Soft tissue, knee capA. Received in formalin labeled "soft tissue" is an 8.7 x 7.5 x 2.4 cm portion of caro-pink to caro-brown, irregular, rubbery soft tissue. On one aspect of the soft tissue is a 10.6 x 4.9 cm irregular to elliptical white-caro, unoriented possible skin tissue. The epidermis is soft, with caro-green, scattered possible gangrenous areas. The opposite aspect of the soft tissue has a 5.8 x 4.7 x 1.7 cm portion of white-caro, irregularly shaped bone. Sectioning through the specimen reveals caro-tanner friable possible purulent material and sectioning through the bone reveals a caro-brown spongy and partially hemorrhagic cut surface. [employer] Home [employer]er sections are submitted in three cassettes as follows: Section code: A1-A21,technical sales representatives sections of skin and soft tissueA3, technical sales representatives section of underlying bone (submitted for decal)F?/plPerformed. POCT-GLUCOSE [id number] 08:24:00 Test Item Value Reference Range Interpretation Comments POC-GLUCOSE METER 214 mg/dL 70-110 H [facility] (test code = [place] 1538) [address] CALCIUM, [id number] 07:14:00 Test Item Value Reference Range Interpretation Comments CALCIUM IONIZED (BEAKER) (test 1.02 mmol/L 1.12-1.27 L code = 698) PH, BLOOD (BEAKER) (test code = 7.37 1810) BASIC METABOLIC [id number] 06:15:00 Test Item Value Reference Range Interpretation Comments SODIUM (BEAKER) 137 meq/L 136-145 (test code = 381) POTASSIUM (BEAKER) 3.9 meq/L 3.5-5.1 (test code = 379) CHLORIDE (BEAKER) 101 meq/L 98-107 (test code = 382) CO2 (BEAKER) (test 26 meq/L 22-29 code = 355) BLOOD UREA NITROGEN 44 mg/dL 7-21 H (BEAKER) (test code = 354) CREATININE (BEAKER) 4.66 mg/dL 0.57-1.25 H (test code = 358) GLUCOSE RANDOM 186 mg/dL 70-105 H (BEAKER) (test code = 652) CALCIUM (BEAKER) 8.1 mg/dL 8.4-10.2 L (test code = 697) EGFR (BEAKER) (test 13 mL/min/1.73 ESTIMA JAMIE GFR IS code = 1092) sq m NOT ACCURATE CREATININE CLEARANCE IN PREDICTING GLOMERULAR FILTRATION RATE . ESTIMATED GFR I S NOT APPLICABLE FOR DIALYSIS PATIEN TS. [id number] 06:13:00 Test Item Value Reference Range Interpretation Comments PHOSPHORUS (BEAKER) (test code = 5.5 mg/dL 2.3-4.7 H 604) [id number] 06:13:00 Test Item Value Reference Range Interpretation Comments MAGNESIUM (BEAKER) (test code = 1.7 mg/dL 1.6-2.6 627) CBC W/PLT COUNT & AUTO [id number] 05:43:00 Test Item Value Reference Range Interpretation Comments WHITE BLOOD CELL COUNT (BEAKER) 14.9 K/ L 3.5-10.5 H (test code = 775) RED BLOOD CELL COUNT (BEAKER) 2.55 M/ L 4.63-6.08 L (test code = 761) HEMOGLOBIN (BEAKER) (test code = 8.0 GM/DL 13.7-17.5 L 410) HEMATOCRIT (BEAKER) (test code = 24.7 % 40.1-51.0 L 411) MEAN CORPUSCULAR VOLUME (BEAKER) 96.9 fL 79.0-92.2 H (test code = 753) MEAN CORPUSCULAR HEMOGLOBIN 31.4 pg 25.7-32.2 (BEAKER) (test code = 751) MEAN CORPUSCULAR HEMOGLOBIN CONC 32.4 GM/DL 32.3-36.5 (BEAKER) (test code = 752) RED CELL DISTRIBUTION WIDTH 15.2 % 11.6-14.4 H (BEAKER) (test code = 412) PLATELET COUNT (BEAKER) (test 403 K/CU MM 150-450 code = 756) MEAN PLATELET VOLUME (BEAKER) 8.2 fL 9.4-12.4 L (test code = 754) NUCLEATED RED BLOOD CELLS 0 /100 WBC 0-0 (BEAKER) (test code = 413) NEUTROPHILS RELATIVE PERCENT 84 % (BEAKER) (test code = 429) LYMPHOCYTES RELATIVE PERCENT 6 % (BEAKER) (test code = 430) MONOCYTES RELATIVE PERCENT 7 % (BEAKER) (test code = 431) EOSINOPHILS RELATIVE PERCENT 2 % (BEAKER) (test code = 432) BASOPHILS RELATIVE PERCENT 0 % (BEAKER) (test code = 437) NEUTROPHILS ABSOLUTE COUNT 12.56 K/ L 1.78-5.38 H (BEAKER) (test code = 670) LYMPHOCYTES ABSOLUTE COUNT 0.84 K/ L 1.32-3.57 L (BEAKER) (test code = 414) MONOCYTES ABSOLUTE COUNT (BEAKER) 1.06 K/ L 0.30-0.82 H (test code = 415) EOSINOPHILS ABSOLUTE COUNT 0.24 K/ L 0.04-0.54 (BEAKER) (test code = 416) BASOPHILS ABSOLUTE COUNT (BEAKER) 0.06 K/ L 0.01-0.08 (test code = 417) IMMATURE GRANULOCYTES-RELATIVE 1 % 0-1 PERCENT (BEAKER) (test code = 2801) POCT-GLUCOSE [id number] 20:52:00 Test Item Value Reference Range Interpretation Comments POC-GLUCOSE METER 213 mg/dL 70-110 H TESTED AT [facility] (BEAKER) (test [facility] 1538) [address] POCT-GLUCOSE [id number] 17:30:00 Test Item Value Reference Range Interpretation Comments POC-GLUCOSE METER 200 mg/dL 70-110 H TESTED AT [place] [address] (BEAKER) (test code = [facility] 1538) [address] POCT-GLUCOSE [id number] 15:29:00 Test Item Value Reference Range Interpretation Comments POC-GLUCOSE METER 204 mg/dL 70-110 H TESTED AT [facility] (BEAKER) (test code = [facility] 1538) [address] POCT-GLUCOSE [id number] 08:05:00 Test Item Value Reference Range Interpretation Comments POC-GLUCOSE METER 146 mg/dL 70-110 H TESTED AT [facility] (BEAKER) (test code = [facility] 1538) [address] BASIC METABOLIC [id number] 06:22:00 Test Item Value Reference Range Interpretation Comments SODIUM (BEAKER) 137 meq/L 136-145 (test code = 381) POTASSIUM (BEAKER) 3.9 meq/L 3.5-5.1 (test code = 379) CHLORIDE (BEAKER) 100 meq/L 98-107 (test code = 382) CO2 (BEAKER) (test 27 meq/L 22-29 code = 355) BLOOD UREA NITROGEN 38 mg/dL 7-21 H (BEAKER) (test code = 354) CREATININE (BEAKER) 4.26 mg/dL 0.57-1.25 H (test code = 358) GLUCOSE RANDOM 125 mg/dL 70-105 H (BEAKER) (test code = 652) CALCIUM (BEAKER) 8.5 mg/dL 8.4-10.2 (test code = 697) EGFR (BEAKER) (test 14 mL/min/1.73 ESTIMA JAMIE GFR IS code = 1092) sq m NOT ACCURATE CREATININE CLEARANCE IN PREDICTING GLOMERULAR FILTRATION RATE . ESTIMATED GFR I S NOT APPLICABLE FOR DIALYSIS PATIEN TS. CBC W/PLT COUNT & AUTO [id number] 05:58:00 Test Item Value Reference Range Interpretation Comments WHITE BLOOD CELL COUNT (BEAKER) 12.4 K/ L 3.5-10.5 H (test code = 775) RED BLOOD CELL COUNT (BEAKER) 2.63 M/ L 4.63-6.08 L (test code = 761) HEMOGLOBIN (BEAKER) (test code = 8.2 GM/DL 13.7-17.5 L 410) HEMATOCRIT (BEAKER) (test code = 26.0 % 40.1-51.0 L 411) MEAN CORPUSCULAR VOLUME (BEAKER) 98.9 fL 79.0-92.2 H (test code = 753) MEAN CORPUSCULAR HEMOGLOBIN 31.2 pg 25.7-32.2 (BEAKER) (test code = 751) MEAN CORPUSCULAR HEMOGLOBIN CONC 31.5 GM/DL 32.3-36.5 L (BEAKER) (test code = 752) RED CELL DISTRIBUTION WIDTH 14.6 % 11.6-14.4 H (BEAKER) (test code = 412) PLATELET COUNT (BEAKER) (test 404 K/CU MM 150-450 code = 756) MEAN PLATELET VOLUME (BEAKER) 8.1 fL 9.4-12.4 L (test code = 754) NUCLEATED RED BLOOD CELLS 0 /100 WBC 0-0 (BEAKER) (test code = 413) NEUTROPHILS RELATIVE PERCENT 76 % (BEAKER) (test code = 429) LYMPHOCYTES RELATIVE PERCENT 10 % (BEAKER) (test code = 430) MONOCYTES RELATIVE PERCENT 8 % (BEAKER) (test code = 431) EOSINOPHILS RELATIVE PERCENT 4 % (BEAKER) (test code = 432) BASOPHILS RELATIVE PERCENT 0 % (BEAKER) (test code = 437) NEUTROPHILS ABSOLUTE COUNT 9.46 K/ L 1.78-5.38 H (BEAKER) (test code = 670) LYMPHOCYTES ABSOLUTE COUNT 1.29 K/ L 1.32-3.57 L (BEAKER) (test code = 414) MONOCYTES ABSOLUTE COUNT (BEAKER) 0.96 K/ L 0.30-0.82 H (test code = 415) EOSINOPHILS ABSOLUTE COUNT 0.45 K/ L 0.04-0.54 (BEAKER) (test code = 416) BASOPHILS ABSOLUTE COUNT (BEAKER) 0.05 K/ L 0.01-0.08 (test code = 417) IMMATURE GRANULOCYTES-RELATIVE 2 % 0-1 H PERCENT (BEAKER) (test code = 2801) BLOOD [id number] 02:00:00 Test Item Value Reference Range Interpretation Comments CULTURE (BEAKER) (test No growth in 5 days code = 1095) POCT-GLUCOSE [id number] 22:11:00 Test Item Value Reference Range Interpretation Comments POC-GLUCOSE METER 291 mg/dL 70-110 H TEST[facility] (test code = [place] [facility] 1538) [address] BLOOD [id number] 20:01:00 Test Item Value Reference Range Interpretation Comments CULTURE (BEAKER) (test No growth in 5 days code = 1095) POCT-GLUCOSE [id number] 17:07:00 Test Item Value Reference Range Interpretation Comments POC-GLUCOSE METER 293 mg/dL 70-110 H TESTED AT [facility] (test [facility] = [facility] 1538) [address] POCT-GLUCOSE [id number] 12:18:00 Test Item Value Reference Range Interpretation Comments POC-GLUCOSE METER 330 mg/dL 70-110 H Notified R Ruma JUNE/TESTED ([facility]) (test code = AT [facility] [address] [place] 1538) [facility] 7[address] 0 POCT-GLUCOSE [id number] 09:30:00 Test Item Value Reference Range Interpretation Comments POC-GLUCOSE METER 125 mg/dL 70-110 H TESTED AT [place] [address] ([facility]) (test code = [place] [facility] 1538) [address] ANAEROBIC [id number] 07:25:00 Test Item Value Reference Range Interpretation Comments CULTURE ([facility]) (test No anaerobes isolated code = 1095) POCT-GLUCOSE [id number] 21:54:00 Test Item Value Reference Range Interpretation Comments POC-GLUCOSE METER 239 mg/dL 70-110 H TESTED AT [place] [address] ([facility]) (test code = [place] [facility] 1538) [address] POCT-GLUCOSE [id number] 16:53:00 Test Item Value Reference Range Interpretation Comments POC-GLUCOSE METER 290 mg/dL 70-110 H TESTED AT [place] [address] ([facility]) (test code = [place] [facility] 1538) [address] POCT-GLUCOSE [id number] 13:48:00 Test Item Value Reference Range Interpretation Comments POC-GLUCOSE METER 266 mg/dL 70-110 H TESTED AT [place] [address] ([facility]) (test code = [place] [facility] 1538) [address] BASIC METABOLIC [id number] 07:50:00 Test Item Value Reference Range Interpretation Comments SODIUM (BEAKER) 134 meq/L 136-145 L (test code = 381) POTASSIUM (BEAKER) 4.5 meq/L 3.5-5.1 (test code = 379) CHLORIDE (BEAKER) 99 meq/L 98-107 (test code = 382) CO2 (BEAKER) (test 23 meq/L 22-29 code = 355) BLOOD UREA NITROGEN 43 mg/dL 7-21 H (BEAKER) (test code = 354) CREATININE (BEAKER) 5.02 mg/dL 0.57-1.25 H (test code = 358) GLUCOSE RANDOM 146 mg/dL 70-105 H (BEAKER) (test code = 652) CALCIUM (BEAKER) 8.5 mg/dL 8.4-10.2 (test code = 697) EGFR (BEAKER) (test 12 mL/min/1.73 ESTIMA JAMIE GFR IS code = 1092) sq m NOT ACCURATE CREATININE CLEARANCE IN PREDICTING GLOMERULAR FILTRATION RATE . ESTIMATED GFR I S NOT APPLICABLE FOR DIALYSIS PATIEN TS. [id number] 07:46:00 Test Item Value Reference Range Interpretation Comments PHOSPHORUS (BEAKER) (test code = 5.5 mg/dL 2.3-4.7 H 604) [id number] 07:46:00 Test Item Value Reference Range Interpretation Comments MAGNESIUM (BEAKER) (test code = 1.6 mg/dL 1.6-2.6 627) CALCIUM, [id number] 06:26:00 Test Item Value Reference Range Interpretation Comments CALCIUM IONIZED (BEAKER) (test 1.01 mmol/L 1.12-1.27 L code = 698) PH, BLOOD (BEAKER) (test code = 7.38 1810) CBC W/PLT COUNT & AUTO [id number] 05:34:00 Test Item Value Reference Range Interpretation Comments WHITE BLOOD CELL COUNT (BEAKER) 14.7 K/ L 3.5-10.5 H (test code = 775) RED BLOOD CELL COUNT (BEAKER) 2.21 M/ L 4.63-6.08 L (test code = 761) HEMOGLOBIN (BEAKER) (test code = 6.9 GM/DL 13.7-17.5 L 410) HEMATOCRIT (BEAKER) (test code = 22.2 % 40.1-51.0 L 411) MEAN CORPUSCULAR VOLUME (BEAKER) 100.5 fL 79.0-92.2 H (test code = 753) MEAN CORPUSCULAR HEMOGLOBIN 31.2 pg 25.7-32.2 (BEAKER) (test code = 751) MEAN CORPUSCULAR HEMOGLOBIN CONC 31.1 GM/DL 32.3-36.5 L (BEAKER) (test code = 752) RED CELL DISTRIBUTION WIDTH 14.8 % 11.6-14.4 H (BEAKER) (test code = 412) PLATELET COUNT (BEAKER) (test 410 K/CU MM 150-450 code = 756) MEAN PLATELET VOLUME (BEAKER) 8.3 fL 9.4-12.4 L (test code = 754) NUCLEATED RED BLOOD CELLS 0 /100 WBC 0-0 (BEAKER) (test code = 413) NEUTROPHILS RELATIVE PERCENT 79 % (BEAKER) (test code = 429) LYMPHOCYTES RELATIVE PERCENT 8 % (BEAKER) (test code = 430) MONOCYTES RELATIVE PERCENT 9 % (BEAKER) (test code = 431) EOSINOPHILS RELATIVE PERCENT 3 % (BEAKER) (test code = 432) BASOPHILS RELATIVE PERCENT 0 % (BEAKER) (test code = 437) NEUTROPHILS ABSOLUTE COUNT 11.52 K/ L 1.78-5.38 H (BEAKER) (test code = 670) LYMPHOCYTES ABSOLUTE COUNT 1.20 K/ L 1.32-3.57 L (BEAKER) (test code = 414) MONOCYTES ABSOLUTE COUNT (BEAKER) 1.36 K/ L 0.30-0.82 H (test code = 415) EOSINOPHILS ABSOLUTE COUNT 0.37 K/ L 0.04-0.54 (BEAKER) (test code = 416) BASOPHILS ABSOLUTE COUNT (BEAKER) 0.06 K/ L 0.01-0.08 (test code = 417) IMMATURE GRANULOCYTES-RELATIVE 1 % 0-1 PERCENT (BEAKER) (test code = 2801) POCT-GLUCOSE [id number] 21:49:00 Test Item Value Reference Range Interpretation Comments POC-GLUCOSE METER 175 mg/dL 70-110 H TESTED AT [place] [address] ([facility]) (test code = [place] [facility] 1538) [address] POCT-GLUCOSE [id number] 17:48:00 Test Item Value Reference Range Interpretation Comments POC-GLUCOSE METER 332 mg/dL 70-110 H TESTED AT [place] [address] ([facility]) (test code = [place] [facility] 1538) [address] POCT-GLUCOSE [id number] 12:39:00 Test Item Value Reference Range Interpretation Comments POC-GLUCOSE METER 258 mg/dL 70-110 H TESTED AT [place] [address] ([facility]) (test code = [facility] Yadira [facility] 1538) [address] POCT-GLUCOSE [id number] 08:18:00 Test Item Value Reference Range Interpretation Comments POC-GLUCOSE METER 197 mg/dL 70-110 H TESTED AT [place] [address] ([facility]) (test code = [place] [facility] 1538) [address] WOUND CULTURE + GRAM [id number] 08:01:00 Test Item Value Reference Range Interpretation Comments CULTURE (BEAKER) See comment (test code = 1095) GRAM STAIN RESULT 1+ WBCs (BEAKER) (test code = 1123) GRAM STAIN RESULT 1+ gram positive cocci in (BEAKER) (test code pairs and clusters = 713247) GRAM STAIN RESULT <1+ gram variable (BEAKER) (test code coccobacilli = 730628) 4+ Enteric organisms of greater than 2 types including Pseudomonas species1+ Skin floraCALCIUM, [id number] 06:47:00 Test Item Value Reference Range Interpretation Comments CALCIUM IONIZED (BEAKER) (test 1.02 mmol/L 1.12-1.27 L code = 698) PH, BLOOD (BEAKER) (test code = 7.43 1810) [id number] 06:11:00 Test Item Value Reference Range Interpretation Comments PHOSPHORUS (BEAKER) (test code = 3.9 mg/dL 2.3-4.7 604) [id number] 06:11:00 Test Item Value Reference Range Interpretation Comments MAGNESIUM (BEAKER) (test code = 1.7 mg/dL 1.6-2.6 627) COMPREHENSIVE METABOLIC [id number] 06:11:00 Test Item Value Reference Range Interpretation Comments TOTAL PROTEIN 6.9 gm/dL 6.0-8.3 (BEAKER) (test code = 770) ALBUMIN (BEAKER) 2.7 g/dL 3.5-5.0 L (test code = 1145) ALKALINE PHOSPHATASE 106 U/L 40-150 (BEAKER) (test code = 346) BILIRUBIN TOTAL 0.2 mg/dL 0.2-1.2 (BEAKER) (test code = 377) SODIUM (BEAKER) (test 133 meq/L 136-145 L code = 381) POTASSIUM (BEAKER) 3.9 meq/L 3.5-5.1 (test code = 379) CHLORIDE (BEAKER) 98 meq/L 98-107 (test code = 382) CO2 (BEAKER) (test 27 meq/L 22-29 code = 355) BLOOD UREA NITROGEN 27 mg/dL 7-21 H (BEAKER) (test code = 354) CREATININE (BEAKER) 3.42 mg/dL 0.57-1.25 H (test code = 358) GLUCOSE RANDOM 192 mg/dL 70-105 H (BEAKER) (test code = 652) CALCIUM (BEAKER) 8.4 mg/dL 8.4-10.2 (test code = 697) AST (SGOT) (BEAKER) 20 U/L 5-34 (test code = 353) ALT (SGPT) (BEAKER) 13 U/L 6-55 (test code = 347) EGFR (BEAKER) (test 19 mL/min/1.73 ESTIMA JAMIE GFR IS code = 1092) sq m NOT ACCURATE CREATININE CLEARANCE IN PREDICTING GLOMERULAR FILTRATION RATE . ESTIMATED GFR I S NOT APPLICABLE FOR DIALYSIS PATIEN TS. BASIC METABOLIC [id number] 06:11:00 Test Item Value Reference Range Interpretation Comments SODIUM (BEAKER) 133 meq/L 136-145 L (test code = 381) POTASSIUM (BEAKER) 3.9 meq/L 3.5-5.1 (test code = 379) CHLORIDE (BEAKER) 98 meq/L 98-107 (test code = 382) CO2 (BEAKER) (test 27 meq/L 22-29 code = 355) BLOOD UREA NITROGEN 27 mg/dL 7-21 H (BEAKER) (test code = 354) CREATININE (BEAKER) 3.42 mg/dL 0.57-1.25 H (test code = 358) GLUCOSE RANDOM 192 mg/dL 70-105 H (BEAKER) (test code = 652) CALCIUM (BEAKER) 8.4 mg/dL 8.4-10.2 (test code = 697) EGFR (BEAKER) (test 19 mL/min/1.73 ESTIMA JAMIE GFR IS code = 1092) sq m NOT ACCURATE CREATININE CLEARANCE IN PREDICTING GLOMERULAR FILTRATION RATE . ESTIMATED GFR I S NOT APPLICABLE FOR DIALYSIS PATIEN TS. [id number] 06:08:00 Test Item Value Reference Range Interpretation Comments PHOSPHORUS (BEAKER) (test code = 3.8 mg/dL 2.3-4.7 604) [id number] 06:08:00 Test Item Value Reference Range Interpretation Comments MAGNESIUM (BEAKER) (test code = 1.7 mg/dL 1.6-2.6 627) CBC W/PLT COUNT & AUTO [id number] 05:55:00 Test Item Value Reference Range Interpretation Comments WHITE BLOOD CELL COUNT (BEAKER) 12.0 K/ L 3.5-10.5 H (test code = 775) RED BLOOD CELL COUNT (BEAKER) 2.23 M/ L 4.63-6.08 L (test code = 761) HEMOGLOBIN (BEAKER) (test code = 7.0 GM/DL 13.7-17.5 L 410) HEMATOCRIT (BEAKER) (test code = 22.4 % 40.1-51.0 L 411) MEAN CORPUSCULAR VOLUME (BEAKER) 100.4 fL 79.0-92.2 H (test code = 753) MEAN CORPUSCULAR HEMOGLOBIN 31.4 pg 25.7-32.2 (BEAKER) (test code = 751) MEAN CORPUSCULAR HEMOGLOBIN CONC 31.3 GM/DL 32.3-36.5 L (BEAKER) (test code = 752) RED CELL DISTRIBUTION WIDTH 15.1 % 11.6-14.4 H (BEAKER) (test code = 412) PLATELET COUNT (BEAKER) (test 407 K/CU MM 150-450 code = 756) MEAN PLATELET VOLUME (BEAKER) 8.4 fL 9.4-12.4 L (test code = 754) NUCLEATED RED BLOOD CELLS 0 /100 WBC 0-0 (BEAKER) (test code = 413) NEUTROPHILS RELATIVE PERCENT 78 % (BEAKER) (test code = 429) LYMPHOCYTES RELATIVE PERCENT 9 % (BEAKER) (test code = 430) MONOCYTES RELATIVE PERCENT 12 % (BEAKER) (test code = 431) EOSINOPHILS RELATIVE PERCENT 1 % (BEAKER) (test code = 432) BASOPHILS RELATIVE PERCENT 0 % (BEAKER) (test code = 437) NEUTROPHILS ABSOLUTE COUNT 9.31 K/ L 1.78-5.38 H (BEAKER) (test code = 670) LYMPHOCYTES ABSOLUTE COUNT 1.07 K/ L 1.32-3.57 L (BEAKER) (test code = 414) MONOCYTES ABSOLUTE COUNT (BEAKER) 1.37 K/ L 0.30-0.82 H (test code = 415) EOSINOPHILS ABSOLUTE COUNT 0.09 K/ L 0.04-0.54 (BEAKER) (test code = 416) BASOPHILS ABSOLUTE COUNT (BEAKER) 0.05 K/ L 0.01-0.08 (test code = 417) IMMATURE GRANULOCYTES-RELATIVE 1 % 0-1 PERCENT (BEAKER) (test code = 2801) SPIN/CONCENTRATION [id number] 04:24:00 Test Item Value Reference Range Interpretation Comments CONCENTRATION CHARGED ([facility]) (test Done code = 2657) POCT-GLUCOSE [id number] 21:20:00 Test Item Value Reference Range Interpretation Comments POC-GLUCOSE METER 207 mg/dL 70-110 H TESTED AT [place] [address] ([facility]) (test code = [place] May [facility] 1538) [address] POCT-GLUCOSE [id number] 12:28:00 Test Item Value Reference Range Interpretation Comments POC-GLUCOSE METER 302 mg/dL 70-110 H TESTED AT [place] [address] ([facility]) (test code = [facility] Yadira [facility] 1538) [address] POCT-GLUCOSE [id number] 08:24:00 Test Item Value Reference Range Interpretation Comments POC-GLUCOSE METER 252 mg/dL 70-110 H TESTED AT [place] [address] ([facility]) (test code = [facility] 1538) [address] CBC W/PLT COUNT & AUTO [id number] 07:41:00 Test Item Value Reference Range Interpretation Comments WHITE BLOOD CELL COUNT (BEAKER) 12.7 K/ L 3.5-10.5 H (test code = 775) RED BLOOD CELL COUNT (BEAKER) 2.28 M/ L 4.63-6.08 L (test code = 761) HEMOGLOBIN (BEAKER) (test code = 7.3 GM/DL 13.7-17.5 L 410) HEMATOCRIT (BEAKER) (test code = 22.2 % 40.1-51.0 L 411) MEAN CORPUSCULAR VOLUME (BEAKER) 97.4 fL 79.0-92.2 H (test code = 753) MEAN CORPUSCULAR HEMOGLOBIN 32.0 pg 25.7-32.2 (BEAKER) (test code = 751) MEAN CORPUSCULAR HEMOGLOBIN CONC 32.9 GM/DL 32.3-36.5 (BEAKER) (test code = 752) RED CELL DISTRIBUTION WIDTH 14.9 % 11.6-14.4 H (BEAKER) (test code = 412) PLATELET COUNT (BEAKER) (test 353 K/CU MM 150-450 code = 756) MEAN PLATELET VOLUME (BEAKER) 8.0 fL 9.4-12.4 L (test code = 754) NUCLEATED RED BLOOD CELLS 0 /100 WBC 0-0 (BEAKER) (test code = 413) (CELLAVISION MANUAL DIFF)2018-09-26 07:41:00 Test Item Value Reference Range Interpretation Comments NEUTROPHILS - REL 81 % (CELLAVISION)(BEAKER) (test code = 2816) LYMPHOCYTES - REL 7 % (CELLAVISION)(BEAKER) (test code = 2817) MONOCYTES - REL 6 % (CELLAVISION)(BEAKER) (test code = 2818) METAMYELOCYTES - REL 1 % 0-0 H (CELLAVISION)(BEAKER) (test code = 2821) MYELOCYTES - REL 1 % 0-0 H (CELLAVISION)(BEAKER) (test code = 2822) PROMYELOCYTES - REL 1 % 0-0 H (CELLAVSION)(BEAKER) (test code = 2825) BANDS - REL (CELLAVISION)(BEAKER) 2 % 0-10 (test code = 2826) ATYPICAL LYMPHOCYTES - REL 1 % 0-0 H (CELLAVISION)(BEAKER) (test code = 2829) NEUTROPHILS - ABS 10.29 K/ul 1.78-5.38 H (CELLAVISION)(BEAKER) (test code = 2830) LYMPHOCYTES - ABS 0.89 K/ul 1.32-3.57 L (CELLAVISION)(BEAKER) (test code = 2831) MONOCYTES - ABS 0.76 K/uL 0.30-0.82 (CELLAVISION)(BEAKER) (test code = 2832) METAMYELOCYTES - ABS 0.13 K/uL 0.00-0.00 H (CELLAVISION)(BEAKER) (test code = 2836) MYELOCYTES-ABS 0.13 K/uL 0.00-0.00 H (CELLAVISION)(BEAKER) (test code = 2837) PROMYELOCYTES - ABS 0.13 K/uL 0.00-0.00 H (CELLAVISION)(BEAKER) (test code = 2838) BANDS - ABS (CELLAVISION)(BEAKER) 0.25 K/uL 0.00-0.80 (test code = 2840) ATYPICAL LYMPHOCYTES - ABS 0.13 K/uL 0.00-0.00 H (CELLAVISION)(BEAKER) (test code = 2858) TOTAL COUNTED (BEAKER) (test code 100 = 1351) MANUAL NRBC PER 100 CELLS 1 /100 WBC 0-0 H (BEAKER) (test code = 1353) WBC MORPHOLOGY (BEAKER) (test Normal code = 487) LARGE PLT(BEAKER) (test code = Present 2156) POLYCHROMATOPHILLIC RBCS(BEAKER) 1+ few (test code = 478) ANISOCYTOSIS (BEAKER) (test code 2+ moderate = 961) POIKILOCYTES (BEAKER) (test code 2+ moderate = 966) SPHEROCYTES (BEAKER) (test code = 1+ few 768) OVALOCYTES (BEAKER) (test code = 2+ moderate 477) MAXIMO CELLS (BEAKER) (test code = 1+ few 474) BASOPHILIC STIPPLING (BEAKER) Present (test code = 473) ARTIFACT (CELLAVISION)(BEAKER) Present (test code = 3432) HELMET CELLS 1+ few (CELLAVISION)(BEAKER) (test code = 3434) PLATELET CONCENTRATION Adequate (CELLAVISION)(BEAKER) (test code = 3438) Received comment: User comments: Slide comments:COMPREHENSIVE METABOLIC PANEL 2018-09-26 05:51:00 Test Item Value Reference Range Interpretation Comments TOTAL PROTEIN 7.2 gm/dL 6.0-8.3 (BEAKER) (test code = 770) ALBUMIN (BEAKER) 2.8 g/dL 3.5-5.0 L (test code = 1145) ALKALINE PHOSPHATASE 100 U/L 40-150 (BEAKER) (test code = 346) BILIRUBIN TOTAL 0.4 mg/dL 0.2-1.2 (BEAKER) (test code = 377) SODIUM (BEAKER) (test 132 meq/L 136-145 L code = 381) POTASSIUM (BEAKER) 3.9 meq/L 3.5-5.1 (test code = 379) CHLORIDE (BEAKER) 98 meq/L 98-107 (test code = 382) CO2 (BEAKER) (test 22 meq/L 22-29 code = 355) BLOOD UREA NITROGEN 52 mg/dL 7-21 H (BEAKER) (test code = 354) CREATININE (BEAKER) 4.71 mg/dL 0.57-1.25 H (test code = 358) GLUCOSE RANDOM 239 mg/dL 70-105 H (BEAKER) (test code = 652) CALCIUM (BEAKER) 8.5 mg/dL 8.4-10.2 (test code = 697) AST (SGOT) (BEAKER) 14 U/L 5-34 (test code = 353) ALT (SGPT) (BEAKER) 12 U/L 6-55 (test code = 347) EGFR (BEAKER) (test 13 mL/min/1.73 ESTIMA JAMIE GFR IS code = 1092) sq m NOT ACCURATE CREATININE CLEARANCE IN PREDICTING GLOMERULAR FILTRATION RATE . ESTIMATED GFR I S NOT APPLICABLE FOR DIALYSIS PATIEN TS. [id number] 05:47:00 Test Item Value Reference Range Interpretation Comments PHOSPHORUS (BEAKER) (test code = 5.4 mg/dL 2.3-4.7 H 604) [id number] 05:47:00 Test Item Value Reference Range Interpretation Comments MAGNESIUM (BEAKER) (test code = 1.6 mg/dL 1.6-2.6 627) CALCIUM, [id number] 05:47:00 Test Item Value Reference Range Interpretation Comments CALCIUM IONIZED (BEAKER) (test 1.02 mmol/L 1.12-1.27 L code = 698) PH, BLOOD (BEAKER) (test code = 7.43 1810) POCT-GLUCOSE [id number] 05:42:00 Test Item Value Reference Range Interpretation Comments POC-GLUCOSE METER 267 mg/dL 70-110 H TESTED AT [facility] ([facility]) (test code = [place] 1538) [address] HEPATITIS B SURFACE [id number] 23:54:00 Test Item Value Reference Range Interpretation Comments HEPATITIS B SURFACE ANTIGEN (2) Nonreactive Nonreactive ([facility]) (test code = 2585) POCT-GLUCOSE [id number] 21:32:00 Test Item Value Reference Range Interpretation Comments POC-GLUCOSE METER 302 mg/dL 70-110 H [facility] insulin [facility] (test code = Drip/T ESTED AT [facility] 1538) [address] [place] [address] BODY FLUID [id number] 18:15:00 Test Item Value Reference Range Interpretation Comments CRYSTALS, BODY FLUID No crystals seen. (BEAKER) (test code = 2165) [id number] Gallo Brooks MD (BEAKER) (test code = (electronic signature) 4472) POCT-GLUCOSE [id number] 17:27:00 Test Item Value Reference Range Interpretation Comments POC-GLUCOSE METER 298 mg/dL 70-110 H TESTED AT [facility] (BEAKER) (test code = [place] 1538) [address] CBC W/PLT COUNT & AUTO [id number] 14:12:00 Test Item Value Reference Range Interpretation Comments WHITE BLOOD CELL COUNT (BEAKER) 11.2 K/ L 3.5-10.5 H (test code = 775) RED BLOOD CELL COUNT (BEAKER) 2.42 M/ L 4.63-6.08 L (test code = 761) HEMOGLOBIN (BEAKER) (test code = 7.7 GM/DL 13.7-17.5 L 410) HEMATOCRIT (BEAKER) (test code = 23.9 % 40.1-51.0 L 411) MEAN CORPUSCULAR VOLUME (BEAKER) 98.8 fL 79.0-92.2 H (test code = 753) MEAN CORPUSCULAR HEMOGLOBIN 31.8 pg 25.7-32.2 (BEAKER) (test code = 751) MEAN CORPUSCULAR HEMOGLOBIN CONC 32.2 GM/DL 32.3-36.5 L (BEAKER) (test code = 752) RED CELL DISTRIBUTION WIDTH 15.2 % 11.6-14.4 H (BEAKER) (test code = 412) PLATELET COUNT (BEAKER) (test 371 K/CU MM 150-450 code = 756) MEAN PLATELET VOLUME (BEAKER) 8.2 fL 9.4-12.4 L (test code = 754) NUCLEATED RED BLOOD CELLS 0 /100 WBC 0-0 (BEAKER) (test code = 413) (CELLAVISION MANUAL DIFF)[id number] 14:12:00 Test Item Value Reference Range Interpretation Comments NEUTROPHILS - REL 81 % (CELLAVISION)(BEAKER) (test code = 2816) LYMPHOCYTES - REL 13 % (CELLAVISION)(BEAKER) (test code = 2817) MONOCYTES - REL 4 % (CELLAVISION)(BEAKER) (test code = 2818) EOSINOPHILS - REL 1 % (CELLAVISION)(BEAKER) (test code = 2819) BANDS - REL (CELLAVISION)(BEAKER) 1 % 0-10 (test code = 2826) NEUTROPHILS - ABS 9.07 K/ul 1.78-5.38 H (CELLAVISION)(BEAKER) (test code = 2830) LYMPHOCYTES - ABS 1.46 K/ul 1.32-3.57 (CELLAVISION)(BEAKER) (test code = 2831) MONOCYTES - ABS 0.45 K/uL 0.30-0.82 (CELLAVISION)(BEAKER) (test code = 2832) EOSINOPHILS - ABS 0.11 K/uL 0.04-0.54 (CELLAVISION)(BEAKER) (test code = 2834) BANDS - ABS (CELLAVISION)(BEAKER) 0.11 K/uL 0.00-0.80 (test code = 2840) TOTAL COUNTED (BEAKER) (test code 100 = 1351) WBC MORPHOLOGY (BEAKER) (test Normal code = 487) LARGE PLT(BEAKER) (test code = Present 2156) POLYCHROMATOPHILLIC RBCS(BEAKER) 1+ few (test code = 478) HYPOCHROMIA (BEAKER) (test code = 2+ moderate 963) ANISOCYTOSIS (BEAKER) (test code 2+ moderate = 961) MICROCYTES (BEAKER) (test code = 2+ moderate 965) POIKILOCYTES (BEAKER) (test code 1+ few = 966) ELLIPTOCYTES (BEAKER) (test code 2+ moderate = 962) OVALOCYTES (BEAKER) (test code = 1+ few 477) TEAR DROP CELLS (BEAKER) (test 1+ few code = 481) ARTIFACT (CELLAVISION)(BEAKER) Present (test code = 3432) PLATELET CONCENTRATION Adequate (CELLAVISION)(BEAKER) (test code = 3438) Received comment: User comments: Slide comments: WBC: SEGMENTED WITH TOXIC GRANULATION PRESENTBODY FLUID CELL COUNT WITH [id number] 12:52:00 Test Item Value Reference Range Interpretation Comments APPEARANCE FLUID Bloody Clear A (BEAKER) (test code = 510) COLOR FLUID (BEAKER) Red Colorless, Straw A (test code = 511) RBC FLUID (BEAKER) /cu mm <=1 Specimen is clotted, (test code = 513) unable to perform cell count ADJUSTED WBC FLUID /cu mm <=5 CORRECTED WBC NOT (BEAKER) (test code = APPLIC ABLE SINCE 1690) DIFFERENTIAL WA S NOT DONE LINING CELLS (BEAKER) /cu mm <=1 LINING CELLS NOT SEEN (test code = 1590) NEUTROPHILS FLUID 96 % (BEAKER) (test code = 1656) LYMPHS FLUID (BEAKER) 1 % (test code = 488) MONO/MACROPHAGE FLUID 2 % (BEAKER) (test code = 489) EOSINOPHILS FLUID 0 % (BEAKER) (test code = 491) BASO FLUID (BEAKER) 0 % (test code = 492) CONTAINER BODY FLUID EDTA Tube (BEAKER) (test code = 2873) MANY BACTERIA INTRA AND EXTRA CELLULAR PRESENTPOCT-GLUCOSE [id number] 12:12:00 Test Item Value Reference Range Interpretation Comments POC-GLUCOSE METER 194 mg/dL 70-110 H TESTED AT [facility] (BEAKER) (test code = [facility] 1538) [address] POCT-GLUCOSE [id number] 07:25:00 Test Item Value Reference Range Interpretation Comments POC-GLUCOSE METER 165 mg/dL 70-110 H [facility] (test code = [facility] 1538) [address] BASIC METABOLIC [id number] 07:20:00 Test Item Value Reference Range Interpretation Comments SODIUM (BEAKER) 137 meq/L 136-145 (test code = 381) POTASSIUM (BEAKER) 4.0 meq/L 3.5-5.1 (test code = 379) CHLORIDE (BEAKER) 103 meq/L 98-107 (test code = 382) CO2 (BEAKER) (test 25 meq/L 22-29 code = 355) BLOOD UREA NITROGEN 37 mg/dL 7-21 H (BEAKER) (test code = 354) CREATININE (BEAKER) 3.41 mg/dL 0.57-1.25 H (test code = 358) GLUCOSE RANDOM 165 mg/dL 70-105 H (BEAKER) (test code = 652) CALCIUM (BEAKER) 8.5 mg/dL 8.4-10.2 (test code = 697) EGFR (BEAKER) (test 19 mL/min/1.73 ESTIMA JAMIE GFR IS code = 1092) sq m NOT ACCURATE CREATININE CLEARANCE IN PREDICTING GLOMERULAR FILTRATION RATE . ESTIMATED GFR I S NOT APPLICABLE FOR DIALYSIS PATIEN TS. [id number] 06:57:00 Test Item Value Reference Range Interpretation Comments PHOSPHORUS (BEAKER) (test code = 4.2 mg/dL 2.3-4.7 604) POCT-GLUCOSE [id number] 01:39:00 Test Item Value Reference Range Interpretation Comments POC-GLUCOSE METER 253 mg/dL 70-110 H TESTED AT [place] [address] ([facility]) (test code = CLAIRE May [place] 1538) [address] POCT-LACTIC ACID, [id number] 00:57:00 Test Item Value Reference Range Interpretation Comments POC-LACTIC ACID, 0.7 mmol/L 0.9-1.7 L TESTED AT [place] [address] [place] ([facility]) (test [facility] [place] code = 2805) [address] C-REACTIVE [id number] 23:53:00 Test Item Value Reference Range Interpretation Comments C-REACTIVE PROTEIN (BEAKER) (test 13.13 mg/dL 0.00-0.50 H code = 676) POCT-LACTIC ACID, [id number] 21:01:00 Test Item Value Reference Range Interpretation Comments POC-LACTIC ACID, 1.0 mmol/L 0.9-1.7 TESTED AT [place] [address] [place] ([facility]) (test [facility] [place] code = 2805) [address] RAD, KNEE, COMPLETE (4 VIEWS), [id number] 18:58:00Reason for exam:->KNEE PAINR knee pain and fluid buildupFINAL REPORT TECHNIQUE: Four views of the right knee. INDICATION: KNEE PAIN. COMPARISON: Radiograph from 05/27/2018. FINDINGS:New since of the medial tibial plateau and distal femur with additional, possible erosion at the tibial spines. Prominent swelling in the suprapatellar region with a small to moderate joint effusion and some gas. Complete loss of the lateral joint space.Marked calcification of the quadriceps tendon as it connects to the patella. There is slight subluxation of the knee joint. The bones are diffusely demineralized. Marked calcification of the arteries of the lower extremity. IMPRESSION: The erosions and joint space of the knee along with the mixed effusion and gas in the suprapatellar space are concerning for infection. Specifically, a septic joint should be considered. Mild subluxation of the knee. The diffuse joint space loss could be due to degenerative change or septic arthritis. Signed: Mando Peralta MDReport Verified Date/Time: 09/24/2018 18:58:03 Reading Location: [address] Consult Reading Room C METABOLIC [id number] 18:10:00 Test Item Value Reference Range Interpretation Comments SODIUM (BEAKER) 133 meq/L 136-145 L (test code = 381) POTASSIUM (BEAKER) 4.1 meq/L 3.5-5.1 (test code = 379) CHLORIDE (BEAKER) 97 meq/L 98-107 L (test code = 382) CO2 (BEAKER) (test 27 meq/L 22-29 code = 355) BLOOD UREA NITROGEN 29 mg/dL 7-21 H (BEAKER) (test code = 354) CREATININE (BEAKER) 2.81 mg/dL 0.57-1.25 H (test code = 358) GLUCOSE RANDOM 385 mg/dL 70-105 H (BEAKER) (test code = 652) CALCIUM (BEAKER) 8.7 mg/dL 8.4-10.2 (test code = 697) EGFR (BEAKER) (test 23 mL/min/1.73 ESTIMA JAMIE GFR IS code = 1092) sq m NOT ACCURATE CREATININE CLEARANCE IN PREDICTING GLOMERULAR FILTRATION RATE . ESTIMATED GFR I S NOT APPLICABLE FOR DIALYSIS PATIEN TS. CBC W/PLT COUNT & AUTO [id number] 17:56:00 Test Item Value Reference Range Interpretation Comments WHITE BLOOD CELL COUNT (BEAKER) 9.0 K/ L 3.5-10.5 (test code = 775) RED BLOOD CELL COUNT (BEAKER) 2.76 M/ L 4.63-6.08 L (test code = 761) HEMOGLOBIN (BEAKER) (test code = 8.9 GM/DL 13.7-17.5 L 410) HEMATOCRIT (BEAKER) (test code = 27.0 % 40.1-51.0 L 411) MEAN CORPUSCULAR VOLUME (BEAKER) 97.8 fL 79.0-92.2 H (test code = 753) MEAN CORPUSCULAR HEMOGLOBIN 32.2 pg 25.7-32.2 (BEAKER) (test code = 751) MEAN CORPUSCULAR HEMOGLOBIN CONC 33.0 GM/DL 32.3-36.5 (BEAKER) (test code = 752) RED CELL DISTRIBUTION WIDTH 15.3 % 11.6-14.4 H (BEAKER) (test code = 412) PLATELET COUNT (BEAKER) (test 445 K/CU MM 150-450 code = 756) MEAN PLATELET VOLUME (BEAKER) 7.9 fL 9.4-12.4 L (test code = 754) NUCLEATED RED BLOOD CELLS 0 /100 WBC 0-0 (BEAKER) (test code = 413) NEUTROPHILS RELATIVE PERCENT 82 % (BEAKER) (test code = 429) LYMPHOCYTES RELATIVE PERCENT 7 % (BEAKER) (test code = 430) MONOCYTES RELATIVE PERCENT 9 % (BEAKER) (test code = 431) EOSINOPHILS RELATIVE PERCENT 1 % (BEAKER) (test code = 432) BASOPHILS RELATIVE PERCENT 0 % (BEAKER) (test code = 437) NEUTROPHILS ABSOLUTE COUNT 7.33 K/ L 1.78-5.38 H (BEAKER) (test code = 670) LYMPHOCYTES ABSOLUTE COUNT 0.66 K/ L 1.32-3.57 L (BEAKER) (test code = 414) MONOCYTES ABSOLUTE COUNT (BEAKER) 0.83 K/ L 0.30-0.82 H (test code = 415) EOSINOPHILS ABSOLUTE COUNT 0.12 K/ L 0.04-0.54 (BEAKER) (test code = 416) BASOPHILS ABSOLUTE COUNT (BEAKER) 0.04 K/ L 0.01-0.08 (test code = 417) IMMATURE GRANULOCYTES-RELATIVE 0 % 0-1 PERCENT (BEAKER) (test code = 2801) COMPREHENSIVE METABOLIC [id number] 18:45:00 Test Item Value Reference Range Interpretation Comments TOTAL PROTEIN 7.6 gm/dL 6.0-8.3 (BEAKER) (test code = 770) ALBUMIN (BEAKER) 3.3 g/dL 3.5-5.0 L (test code = 1145) ALKALINE PHOSPHATASE 135 U/L 40-150 (BEAKER) (test code = 346) BILIRUBIN TOTAL 0.4 mg/dL 0.2-1.2 (BEAKER) (test code = 377) SODIUM (BEAKER) (test 138 meq/L 136-145 code = 381) POTASSIUM (BEAKER) 4.8 meq/L 3.5-5.1 (test code = 379) CHLORIDE (BEAKER) 102 meq/L 98-107 (test code = 382) CO2 (BEAKER) (test 26 meq/L 22-29 code = 355) BLOOD UREA NITROGEN 41 mg/dL 7-21 H (BEAKER) (test code = 354) CREATININE (BEAKER) 3.57 mg/dL 0.57-1.25 H (test code = 358) GLUCOSE RANDOM 297 mg/dL 70-105 H (BEAKER) (test code = 652) CALCIUM (BEAKER) 8.9 mg/dL 8.4-10.2 (test code = 697) AST (SGOT) (BEAKER) 18 U/L 5-34 (test code = 353) ALT (SGPT) (BEAKER) 18 U/L 6-55 (test code = 347) EGFR (BEAKER) (test 18 mL/min/1.73 ESTIMA JAMIE GFR IS code = 1092) sq m NOT ACCURATE CREATININE CLEARANCE IN PREDICTING GLOMERULAR FILTRATION RATE . ESTIMATED GFR I S NOT APPLICABLE FOR DIALYSIS PATIEN TS. [id number] 18:44:00 Test Item Value Reference Range Interpretation Comments MAGNESIUM (BEAKER) (test code = 1.9 mg/dL 1.6-2.6 627) [id number] 18:31:00 Test Item Value Reference Range Interpretation Comments PROTIME (BEAKER) (test code = 12.8 seconds 11.7-14.7 759) INR (BEAKER) (test code = 370) 1.0 <=5.9 PARTIAL THROMBOPLASTIN TIME 32.0 seconds 22.5-36.0 (BEAKER) (test code = 760) RECOMMENDED COUMADIN/WARFARIN INR THERAPY RANGESSTANDARD DOSE: 2.0 - 3.0 Includes: PROPHYLAXIS forvenous thrombosis, systemic embolization; TREATMENT for venous thrombosis and/or pulmonary embolus.HIGH RISK: Target INR is 2.5-3.5 for patients with mechanical heart valves.CBC W/PLT COUNT & AUTO DIFFERENTIAL 2018-08-21 18:20:00 Test Item Value Reference Range Interpretation Comments WHITE BLOOD CELL COUNT (BEAKER) 10.1 K/ L 3.5-10.5 (test code = 775) RED BLOOD CELL COUNT (BEAKER) 2.88 M/ L 4.63-6.08 L (test code = 761) HEMOGLOBIN (BEAKER) (test code = 9.1 GM/DL 13.7-17.5 L 410) HEMATOCRIT (BEAKER) (test code = 28.8 % 40.1-51.0 L 411) MEAN CORPUSCULAR VOLUME (BEAKER) 100.0 fL 79.0-92.2 H (test code = 753) MEAN CORPUSCULAR HEMOGLOBIN 31.6 pg 25.7-32.2 (BEAKER) (test code = 751) MEAN CORPUSCULAR HEMOGLOBIN CONC 31.6 GM/DL 32.3-36.5 L (BEAKER) (test code = 752) RED CELL DISTRIBUTION WIDTH 16.0 % 11.6-14.4 H (BEAKER) (test code = 412) PLATELET COUNT (BEAKER) (test 357 K/CU MM 150-450 code = 756) MEAN PLATELET VOLUME (BEAKER) 8.2 fL 9.4-12.4 L (test code = 754) NUCLEATED RED BLOOD CELLS 0 /100 WBC 0-0 (BEAKER) (test code = 413) NEUTROPHILS RELATIVE PERCENT 79 % (BEAKER) (test code = 429) LYMPHOCYTES RELATIVE PERCENT 10 % (BEAKER) (test code = 430) MONOCYTES RELATIVE PERCENT 7 % (BEAKER) (test code = 431) EOSINOPHILS RELATIVE PERCENT 3 % (BEAKER) (test code = 432) BASOPHILS RELATIVE PERCENT 0 % (BEAKER) (test code = 437) NEUTROPHILS ABSOLUTE COUNT 8.00 K/ L 1.78-5.38 H (BEAKER) (test code = 670) LYMPHOCYTES ABSOLUTE COUNT 1.00 K/ L 1.32-3.57 L (BEAKER) (test code = 414) MONOCYTES ABSOLUTE COUNT (BEAKER) 0.73 K/ L 0.30-0.82 (test code = 415) EOSINOPHILS ABSOLUTE COUNT 0.28 K/ L 0.04-0.54 (BEAKER) (test code = 416) BASOPHILS ABSOLUTE COUNT (BEAKER) 0.04 K/ L 0.01-0.08 (test code = 417) IMMATURE GRANULOCYTES-RELATIVE 1 % 0-1 PERCENT (BEAKER) (test code = 2801) POCT-GLUCOSE [id number] 08:49:00 Test Item Value Reference Range Interpretation Comments POC-GLUCOSE METER 154 mg/dL 70-110 H TESTED AT [facility] 6720 (BEAKER) (test code = CLAIRE [place] 1538) [address] BASIC METABOLIC [id number] 06:49:00 Test Item Value Reference Range Interpretation Comments SODIUM (BEAKER) 135 meq/L 136-145 L (test code = 381) POTASSIUM (BEAKER) 4.1 meq/L 3.5-5.1 (test code = 379) CHLORIDE (BEAKER) 100 meq/L 98-107 (test code = 382) CO2 (BEAKER) (test 27 meq/L 22-29 code = 355) BLOOD UREA NITROGEN 25 mg/dL 7-21 H (BEAKER) (test code = 354) CREATININE (BEAKER) 2.89 mg/dL 0.57-1.25 H (test code = 358) GLUCOSE RANDOM 169 mg/dL 70-105 H (BEAKER) (test code = 652) CALCIUM (BEAKER) 8.5 mg/dL 8.4-10.2 (test code = 697) EGFR (BEAKER) (test 23 mL/min/1.73 ESTIMA JAMIE GFR IS code = 1092) sq m NOT ACCURATE CREATININE CLEARANCE IN PREDICTING GLOMERULAR FILTRATION RATE . ESTIMATED GFR I S NOT APPLICABLE FOR DIALYSIS PATIEN TS. CBC W/PLT COUNT & AUTO [id number] 06:13:00 Test Item Value Reference Range Interpretation Comments WHITE BLOOD CELL COUNT (BEAKER) 8.4 K/ L 3.5-10.5 (test code = 775) RED BLOOD CELL COUNT (BEAKER) 2.59 M/ L 4.63-6.08 L (test code = 761) HEMOGLOBIN (BEAKER) (test code = 8.0 GM/DL 13.7-17.5 L 410) HEMATOCRIT (BEAKER) (test code = 24.6 % 40.1-51.0 L 411) MEAN CORPUSCULAR VOLUME (BEAKER) 95.0 fL 79.0-92.2 H (test code = 753) MEAN CORPUSCULAR HEMOGLOBIN 30.9 pg 25.7-32.2 (BEAKER) (test code = 751) MEAN CORPUSCULAR HEMOGLOBIN CONC 32.5 GM/DL 32.3-36.5 (BEAKER) (test code = 752) RED CELL DISTRIBUTION WIDTH 14.1 % 11.6-14.4 (BEAKER) (test code = 412) PLATELET COUNT (BEAKER) (test 374 K/CU MM 150-450 code = 756) MEAN PLATELET VOLUME (BEAKER) 8.2 fL 9.4-12.4 L (test code = 754) NUCLEATED RED BLOOD CELLS 0 /100 WBC 0-0 (BEAKER) (test code = 413) NEUTROPHILS RELATIVE PERCENT 77 % (BEAKER) (test code = 429) LYMPHOCYTES RELATIVE PERCENT 9 % (BEAKER) (test code = 430) MONOCYTES RELATIVE PERCENT 11 % (BEAKER) (test code = 431) EOSINOPHILS RELATIVE PERCENT 2 % (BEAKER) (test code = 432) BASOPHILS RELATIVE PERCENT 1 % (BEAKER) (test code = 437) NEUTROPHILS ABSOLUTE COUNT 6.47 K/ L 1.78-5.38 H (BEAKER) (test code = 670) LYMPHOCYTES ABSOLUTE COUNT 0.77 K/ L 1.32-3.57 L (BEAKER) (test code = 414) MONOCYTES ABSOLUTE COUNT (BEAKER) 0.93 K/ L 0.30-0.82 H (test code = 415) EOSINOPHILS ABSOLUTE COUNT 0.17 K/ L 0.04-0.54 (BEAKER) (test code = 416) BASOPHILS ABSOLUTE COUNT (BEAKER) 0.04 K/ L 0.01-0.08 (test code = 417) IMMATURE GRANULOCYTES-RELATIVE 0 % 0-1 PERCENT (BEAKER) (test code = 2801) POCT-GLUCOSE [id number] 18:16:00 Test Item Value Reference Range Interpretation Comments POC-GLUCOSE METER 125 mg/dL 70-110 H TESTED AT [facility] 6720 (BEAKER) (test code = [place] 1538) [address] HEMOGLOBIN AND [id number] 14:33:00 Test Item Value Reference Range Interpretation Comments HEMOGLOBIN (BEAKER) (test code = 9.0 GM/DL 13.7-17.5 L 410) HEMATOCRIT (BEAKER) (test code = 28.0 % 40.1-51.0 L 411) POCT-GLUCOSE [id number] 12:30:00 Test Item Value Reference Range Interpretation Comments POC-GLUCOSE METER 180 mg/dL 70-110 H TEST[facility] AT [place] [address] ([facility] (test code = [facility] [place] 1538) [address] POCT-GLUCOSE [id number] 07:47:00 Test Item Value Reference Range Interpretation Comments POC-GLUCOSE METER 167 mg/dL 70-110 H TESTED AT [place] [address] ([facility]) (test code = [facility] 1538) [address] BASIC METABOLIC [id number] 05:58:00 Test Item Value Reference Range Interpretation Comments SODIUM (BEAKER) 132 meq/L 136-145 L (test code = 381) POTASSIUM (BEAKER) 5.1 meq/L 3.5-5.1 (test code = 379) CHLORIDE (BEAKER) 98 meq/L 98-107 (test code = 382) CO2 (BEAKER) (test 26 meq/L 22-29 code = 355) BLOOD UREA NITROGEN 48 mg/dL 7-21 H (BEAKER) (test code = 354) CREATININE (BEAKER) 4.28 mg/dL 0.57-1.25 H (test code = 358) GLUCOSE RANDOM 190 mg/dL 70-105 H (BEAKER) (test code = 652) CALCIUM (BEAKER) 8.4 mg/dL 8.4-10.2 (test code = 697) EGFR (BEAKER) (test 14 mL/min/1.73 ESTIMA JAMIE GFR IS code = 1092) sq m NOT ACCURATE CREATININE CLEARANCE IN PREDICTING GLOMERULAR FILTRATION RATE . ESTIMATED GFR I S NOT APPLICABLE FOR DIALYSIS PATIEN TS. CBC W/PLT COUNT & AUTO [id number] 05:44:00 Test Item Value Reference Range Interpretation Comments WHITE BLOOD CELL COUNT (BEAKER) 10.5 K/ L 3.5-10.5 (test code = 775) RED BLOOD CELL COUNT (BEAKER) 2.56 M/ L 4.63-6.08 L (test code = 761) HEMOGLOBIN (BEAKER) (test code = 7.8 GM/DL 13.7-17.5 L 410) HEMATOCRIT (BEAKER) (test code = 24.3 % 40.1-51.0 L 411) MEAN CORPUSCULAR VOLUME (BEAKER) 94.9 fL 79.0-92.2 H (test code = 753) MEAN CORPUSCULAR HEMOGLOBIN 30.5 pg 25.7-32.2 (BEAKER) (test code = 751) MEAN CORPUSCULAR HEMOGLOBIN CONC 32.1 GM/DL 32.3-36.5 L (BEAKER) (test code = 752) RED CELL DISTRIBUTION WIDTH 14.3 % 11.6-14.4 (BEAKER) (test code = 412) PLATELET COUNT (BEAKER) (test 413 K/CU MM 150-450 code = 756) MEAN PLATELET VOLUME (BEAKER) 8.2 fL 9.4-12.4 L (test code = 754) NUCLEATED RED BLOOD CELLS 0 /100 WBC 0-0 (BEAKER) (test code = 413) NEUTROPHILS RELATIVE PERCENT 81 % (BEAKER) (test code = 429) LYMPHOCYTES RELATIVE PERCENT 8 % (BEAKER) (test code = 430) MONOCYTES RELATIVE PERCENT 9 % (BEAKER) (test code = 431) EOSINOPHILS RELATIVE PERCENT 1 % (BEAKER) (test code = 432) BASOPHILS RELATIVE PERCENT 1 % (BEAKER) (test code = 437) NEUTROPHILS ABSOLUTE COUNT 8.54 K/ L 1.78-5.38 H (BEAKER) (test code = 670) LYMPHOCYTES ABSOLUTE COUNT 0.82 K/ L 1.32-3.57 L (BEAKER) (test code = 414) MONOCYTES ABSOLUTE COUNT (BEAKER) 0.96 K/ L 0.30-0.82 H (test code = 415) EOSINOPHILS ABSOLUTE COUNT 0.07 K/ L 0.04-0.54 (BEAKER) (test code = 416) BASOPHILS ABSOLUTE COUNT (BEAKER) 0.07 K/ L 0.01-0.08 (test code = 417) IMMATURE GRANULOCYTES-RELATIVE 1 % 0-1 PERCENT (BEAKER) (test code = 2801) POCT-GLUCOSE [id number] 20:14:00 Test Item Value Reference Range Interpretation Comments POC-GLUCOSE METER 216 mg/dL 70-110 H TESTED AT [facility] 67[facility] ([facility]) (test code = CLAIRE May [place] 1538) [address] POCT-GLUCOSE [id number] 13:02:00 Test Item Value Reference Range Interpretation Comments POC-GLUCOSE METER 145 mg/dL 70-110 H TESTED AT [facility] 67[address] ([facility]) (test code = CLAIRE May [facility] 1538) [address] AFB CULTURE + [id number] 12:45:00 Test Item Value Reference Range Interpretation Comments CULTURE ([facility]) (test No acid-fast bacilli code = 1095) isolated in 42 days AFB SMEAR ([facility]) No acid fast bacilli (test code = 994) seen [id number] 10:04:00 Test Item Value Reference Range Interpretation Comments POC-POTASSIUM 5.4 meq/L 3.6-5.5 TESTED AT [facility] 6720 ([facility]) (test code ROSANGELA [facility] [address] = 1540) POCT-GLUCOSE [id number] 09:53:00 Test Item Value Reference Range Interpretation Comments POC-GLUCOSE METER 207 mg/dL 70-110 H TESTED AT [place] [address] ([facility]) (test code = CLAIRE May [facility] 1538) [address] ANG, TUNNELED CATHETER [id number] 19:57:00Reason for exam:->need hd FINAL REPORT Tunneled dialysis catheter insertion, 06/05/2018 History: Renal failure. Modality: Sonography and fluoroscopy. Sedation: Versed 2.0 mg and fentanyl 100 mcg was given intravenously for conscious sedation. Vital signs were monitored throughout the procedure by a nurse, and remained stable. Physician intra-service time was 20 minutes.Supervisor [place] Department: Alana. Heat Pump Installer: Brock. Approach: Left internal jugular vein Estimated blood loss: < 5 cc. S pecimen: None. Fluoroscopy Time: 1.3 min. Dose (Ka,r): 11.0 mGy. Technique: Informed written consent was obtained. Discussion of risks, benefits, and alternatives were made with the patient. The patient expressed understanding and agreed to proceed. All elements maximal sterile barrier technique was utilized for this procedure, including utilization of sterile scrub solution for skin prep, a large sterile sheet to cover the areas of the patient that were not prepped, and hand hygiene, mask, head covering, and sterile gown for performing radiologist and scrub technologist. The skin was anesthetized with 2% lidocaine.Ultrasound evaluation showed a patent and compressible left internal jugular vein, which was punctured under direct real-time ultrasound guidance with a micropuncture needle. An ultrasound image was saved to PACS. A 0.018 inch wire was placed through the needle into the right atrium. A 4 Beninese micropuncture sheath was placed. A subcutaneous tunnel was created in the left anterior chest wall by blunt dissection. A 23 cm 15.5 Beninese Duraflow 2 catheter was brought through the tunnel. The vessel tract was serially dilated over a J-wire. A peel-away sheath was placed inthe left IJ vein and the catheter was advanced through the sheath, with its distal tip terminating in the right atrium. The peel-away sheath was removed. The ports were flushed and aspirated easily following placement. The catheter was sutured to the skin with 2-0 silk to secure its placement. The small jugular incision site was closed using resorbable suture. Vital signs were monitored throughoutthe procedure by a nurse, and remained stable. The patient tolerated the procedure well and left the department in the same condition. Results: Spot radiograph of the chest demonstrates the new dialysis catheter to lie in the expected position with its tip overlying the superior right atrium. Impression: Successful, uncomplicated placement of a left internal jugular tunneled dialysis catheter using sonographic and fluoroscopic guidance and conscious sedation. Signed: Isidro Warner MDReport Verified Date/Time: 07/12/2018 19:57:05 Reading Location: [address] Body Reading Room CBC W/AUTO [id number] 07:45:00 Test Item Value Reference Range Interpretation Comments WHITE BLOOD CELL (test 8.7 K/mm3 3.5-11.0 N code = WBC) RED BLOOD CELL (test 2.46 M/mm3 4.70-6.10 L code = RBC) HEMOGLOBIN (test code 7.6 G/DL 12.3-15.9 L = HGB) HEMATOCRIT (test code 24.2 % 35.8-46.7 L = HCT) MEAN CELL VOLUME (test 98.4 Fl 86.3-98.9 N code = MCV) MEAN CELL HGB (test 30.9 pg 28.9-34.4 N code = MCH) MEAN CELL HGB 31.4 G/DL 32.1-34.5 L CONCETRATION (test code = MCHC) RED CELL DISTRIBUTION 15.5 SD 11.5-14.5 H WIDTH (test code = RDW) PLATELET COUNT (test 453.0 K/mm3 150-450 H code = PLT) MEAN PLATELET VOLUME 7.80 fL 7.0-9.6 N (test code = MPV) NEUTROPHIL % (test 71.5 % 40-76 N code = NT%) LYMPHOCYTE % (test 11.9 % 20.5-51.1 L code = LY%) MONOCYTE % (test code 11.6 % 1.7-9.3 H = MO%) EOSINOPHIL % (test 3.9 % 0.0-6.0 N code = EO%) BASOPHIL % (test code 1.1 % 0.0-2.0 N = BA%) NEUTROPHIL # (test 6.22 K/mm3 1.8-7.6 N code = NT#) LYMPHOCYTE # (test 1.0 K/mm3 0.6-3.0 N code = LY#) MONOCYTE # (test code 1.0 K/mm3 0.2-1.5 N = MO#) EOSINOPHIL # (test 0.3 K/mm3 0.0-0.4 N code = EO#) BASOPHIL # (test code 0.1 K/mm3 0.0-0.2 N = BA#) MANUAL DIFF REQUIRED NO DIFF/SCN CRITERIA SLIDE R EVIEW (test code = MDIFF) CONSISTA NT WITH AUTO DIFFERENTIAL. FUNGUS CULTURE + [id number] 15:25:00 Test Item Value Reference Range Interpretation Comments CULTURE (BEAKER) (test No fungus isolated in code = 1095) 28 days FUNGUS SMEAR (BEAKER) No fungi seen (test code = 1406) DELLA TUNNELED CATHETER [id number] 15:17:00Reason for exam:->for IV abxFINAL REPORT Tunneled central venous catheter insertion. History:Need for long-term IV therapy, chronic kidney disease Modality: Sonography and fluoroscopy. Sedation: None Supervisor [place] Department: Yusef Underwood MD. Heat Pump Installer: Levi Gutiérrez (fellow). Approach: Left internal jugular vein Estimated blood loss: < 5 cc. Specimen: None. Fluoroscopy Time: 0.3 min.Reference Air Kerma (Ka, r): 2.2 mGy. Technique: Informed written consent was obtained. Discussion of risks, benefits, and alternatives were made with the patient. The patient expressed understanding and agreed to proceed. A universal timeout was performed prior to starting the procedure. All elements maximal sterile barrier technique was utilized for this procedure, including utilization of sterile scrub solution for skin prep, a large sterile sheet to cover the areas of the patient that were not prepped, and hand hygiene, mask, head covering, and sterile gown for performing radiologist and scrub technologist. The skin was anesthetized with 2% lidocaine.Ultrasound evaluation showed a patent and compressible left internal jugular vein, which was punctured under direct real-time ultrasound guidance with a micropuncture needle. An ultrasound image was saved to PACS. A 0.018 inch wire wasplaced through the needle into the right atrium. A 4 peel-away sheath was placed. A subcutaneous tunnel was created in the left anterior chest wall by blunt dissection. A 6 [place] Bard dual lumen power line was brought through the tunnel and advanced through the sheath, with its distal tip terminating in the superior right atrium. The peel-away sheath was removed. The ports were flushed and aspirated easily following placement. The catheter was sutured to the skin to secure its placement. The small jugular incision site was closed using Dermabond. Vital signs were monitored throughout the procedure by a nurse, and remained stable. The patient tolerated the procedure well and left the department in the same condition. Results: Spot radiograph of the chest demonstrates the new tunneled central venous catheter to lie in the expected position with its tip overlying the superior right atrium. Impression: Successful, uncomplicated placement of a left internal jugular tunneled central venous catheter using sonographic and fluoroscopic guidance. The catheter is ready for immediate use. Signed: Yusef Underwood MDReport Verified Date/Time: 06/20/2018 15:17:46 Reading Location: [place] [address] Angio Body Reading Room POCT-GLUCOSE [id number] 20:00:00 Test Item Value Reference Range Interpretation Comments POC-GLUCOSE METER 103 mg/dL 70-110 TESTED AT [facility] [address] ([facility]) (test code = CLAIRE May [place] 1538) [id number] HEPATITIS B [id number] 09:53:00 Test Item Value Reference Range Interpretation Comments HEPATITIS B CORE TOTAL ANTIBODY Nonreactive Nonreactive (BEAKER) (test code = 497) HEPATITIS B SURFACE ANTIBODY < mIU/mL <8.0 (AKER) (test code = 647) HEPATITIS B SURFACE ANTIGEN (2) Nonreactive Nonreactive (AKER) (test code = 2585) POCT-GLUCOSE [id number] 08:40:00 Test Item Value Reference Range Interpretation Comments POC-GLUCOSE METER 158 mg/dL 70-110 H TESTED AT [place] [address] ([facility]) (test code = CLAIRE May [facility] 1538) [address] CBC W/PLT COUNT & AUTO [id number] 08:04:00 Test Item Value Reference Range Interpretation Comments WHITE BLOOD CELL COUNT (BEAKER) 9.8 K/ L 3.5-10.5 (test code = 775) RED BLOOD CELL COUNT (BEAKER) 2.50 M/ L 4.63-6.08 L (test code = 761) HEMOGLOBIN (BEAKER) (test code = 7.6 GM/DL 13.7-17.5 L 410) HEMATOCRIT (BEAKER) (test code = 24.1 % 40.1-51.0 L 411) MEAN CORPUSCULAR VOLUME (BEAKER) 96.4 fL 79.0-92.2 H (test code = 753) MEAN CORPUSCULAR HEMOGLOBIN 30.4 pg 25.7-32.2 (BEAKER) (test code = 751) MEAN CORPUSCULAR HEMOGLOBIN CONC 31.5 GM/DL 32.3-36.5 L (BEAKER) (test code = 752) RED CELL DISTRIBUTION WIDTH 14.3 % 11.6-14.4 (BEAKER) (test code = 412) PLATELET COUNT (BEAKER) (test 392 K/CU MM 150-450 code = 756) MEAN PLATELET VOLUME (BEAKER) 8.4 fL 9.4-12.4 L (test code = 754) NUCLEATED RED BLOOD CELLS 0 /100 WBC 0-0 (BEAKER) (test code = 413) NEUTROPHILS RELATIVE PERCENT 74 % (BEAKER) (test code = 429) LYMPHOCYTES RELATIVE PERCENT 9 % (BEAKER) (test code = 430) MONOCYTES RELATIVE PERCENT 8 % (BEAKER) (test code = 431) EOSINOPHILS RELATIVE PERCENT 2 % (BEAKER) (test code = 432) BASOPHILS RELATIVE PERCENT 0 % (BEAKER) (test code = 437) NEUTROPHILS ABSOLUTE COUNT 7.27 K/ L 1.78-5.38 H (BEAKER) (test code = 670) LYMPHOCYTES ABSOLUTE COUNT 0.90 K/ L 1.32-3.57 L (BEAKER) (test code = 414) MONOCYTES ABSOLUTE COUNT (BEAKER) 0.81 K/ L 0.30-0.82 (test code = 415) EOSINOPHILS ABSOLUTE COUNT 0.23 K/ L 0.04-0.54 (BEAKER) (test code = 416) BASOPHILS ABSOLUTE COUNT (BEAKER) 0.04 K/ L 0.01-0.08 (test code = 417) IMMATURE GRANULOCYTES-RELATIVE 5 % 0-1 H PERCENT (BEAKER) (test code = 2801) [id number] 07:36:00 Test Item Value Reference Range Interpretation Comments PHOSPHORUS (BEAKER) (test code = 2.9 mg/dL 2.3-4.7 604) BASIC METABOLIC [id number] 07:36:00 Test Item Value Reference Range Interpretation Comments SODIUM (BEAKER) 135 meq/L 136-145 L (test code = 381) POTASSIUM (BEAKER) 4.0 meq/L 3.5-5.1 (test code = 379) CHLORIDE (BEAKER) 101 meq/L 98-107 (test code = 382) CO2 (BEAKER) (test 24 meq/L 22-29 code = 355) BLOOD UREA NITROGEN 46 mg/dL 7-21 H (BEAKER) (test code = 354) CREATININE (BEAKER) 4.99 mg/dL 0.57-1.25 H (test code = 358) GLUCOSE RANDOM 155 mg/dL 70-105 H (BEAKER) (test code = 652) CALCIUM (BEAKER) 7.6 mg/dL 8.4-10.2 L (test code = 697) EGFR (BEAKER) (test 12 mL/min/1.73 ESTIMA JAMIE GFR IS code = 1092) sq m NOT ACCURATE CREATININE CLEARANCE IN PREDICTING GLOMERULAR FILTRATION RATE . ESTIMATED GFR I S NOT APPLICABLE FOR DIALYSIS PATIEN TS. POCT-GLUCOSE [id number] 02:20:00 Test Item Value Reference Range Interpretation Comments POC-GLUCOSE METER 149 mg/dL 70-110 H TEST[facility] AT [place] [address] [facility] (test code = [facility] 1538) [id number] POCT-GLUCOSE [id number] 17:27:00 Test Item Value Reference Range Interpretation Comments POC-GLUCOSE METER 119 mg/dL 70-110 H TESTED AT [place] [address] ([facility]) (test code = [facility] 1538) [address] POCT-GLUCOSE [id number] 13:40:00 Test Item Value Reference Range Interpretation Comments POC-GLUCOSE METER 167 mg/dL 70-110 H TESTED AT [place] [address] ([facility]) (test code = [facility] 1538) [address] POCT-GLUCOSE [id number] 08:18:00 Test Item Value Reference Range Interpretation Comments POC-GLUCOSE METER 126 mg/dL 70-110 H TESTED AT [place] [address] ([facility] (test code = [facility] 1538) [address] BASIC METABOLIC [id number] 05:27:00 Test Item Value Reference Range Interpretation Comments SODIUM (BEAKER) 135 meq/L 136-145 L (test code = 381) POTASSIUM (BEAKER) 3.8 meq/L 3.5-5.1 (test code = 379) CHLORIDE (BEAKER) 101 meq/L 98-107 (test code = 382) CO2 (BEAKER) (test 26 meq/L 22-29 code = 355) BLOOD UREA NITROGEN 36 mg/dL 7-21 H (BEAKER) (test code = 354) CREATININE (BEAKER) 4.41 mg/dL 0.57-1.25 H (test code = 358) GLUCOSE RANDOM 107 mg/dL 70-105 H (BEAKER) (test code = 652) CALCIUM (BEAKER) 7.4 mg/dL 8.4-10.2 L (test code = 697) EGFR (BEAKER) (test 14 mL/min/1.73 ESTIMA JAMIE GFR IS code = 1092) sq m NOT ACCURATE CREATININE CLEARANCE IN PREDICTING GLOMERULAR FILTRATION RATE . ESTIMATED GFR I S NOT APPLICABLE FOR DIALYSIS PATIEN TS. [id number] 05:26:00 Test Item Value Reference Range Interpretation Comments PHOSPHORUS (BEAKER) (test code = 2.6 mg/dL 2.3-4.7 604) POCT-GLUCOSE [id number] 21:45:00 Test Item Value Reference Range Interpretation Comments POC-GLUCOSE METER 165 mg/dL 70-110 H TESTED AT [facility] (BEAKER) (test code = CLAIRE [place] 1538) [address] POCT-GLUCOSE [id number] 13:30:00 Test Item Value Reference Range Interpretation Comments POC-GLUCOSE METER 192 mg/dL 70-110 H [facility] (BEAKER) (test code = CLAIRE May [place] 1538) [address] POCT-GLUCOSE [id number] 08:43:00 Test Item Value Reference Range Interpretation Comments POC-GLUCOSE METER 135 mg/dL 70-110 H TESTED AT [facility] [address] (BEAKER) (test code = CLAIRE [place] 1538) [address] BLOOD [id number] 07:01:00 Test Item Value Reference Range Interpretation Comments CULTURE (BEAKER) (test No growth in 5 days code = 1095) BLOOD [id number] 07:01:00 Test Item Value Reference Range Interpretation Comments CULTURE (BEAKER) (test No growth in 5 days code = 1095) POCT-GLUCOSE [id number] 22:33:00 Test Item Value Reference Range Interpretation Comments POC-GLUCOSE METER 254 mg/dL 70-110 H TESTED AT [facility] (test code = CLAIRE May [place] 1538) [address] POCT-GLUCOSE [id number] 13:13:00 Test Item Value Reference Range Interpretation Comments POC-GLUCOSE METER 189 mg/dL 70-110 H [facility] (BEAKER) (test code = CLAIRE May [place] 1538) [address] POCT-GLUCOSE [id number] 08:32:00 Test Item Value Reference Range Interpretation Comments POC-GLUCOSE METER 150 mg/dL 70-110 H TESTED AT [facility] (BEAKER) (test code = CLAIRE May [place] 1538) [address] BASIC METABOLIC [id number] 07:36:00 Test Item Value Reference Range Interpretation Comments SODIUM (BEAKER) 132 meq/L 136-145 L (test code = 381) POTASSIUM (BEAKER) 4.2 meq/L 3.5-5.1 (test code = 379) CHLORIDE (BEAKER) 98 meq/L 98-107 (test code = 382) CO2 (BEAKER) (test 29 meq/L 22-29 code = 355) BLOOD UREA NITROGEN 38 mg/dL 7-21 H (BEAKER) (test code = 354) CREATININE (BEAKER) 4.80 mg/dL 0.57-1.25 H (test code = 358) GLUCOSE RANDOM 144 mg/dL 70-105 H (BEAKER) (test code = 652) CALCIUM (BEAKER) 8.1 mg/dL 8.4-10.2 L (test code = 697) EGFR (BEAKER) (test 13 mL/min/1.73 ESTIMA JAMIE GFR IS code = 1092) sq m NOT ACCURATE CREATININE CLEARANCE IN PREDICTING GLOMERULAR FILTRATION RATE . ESTIMATED GFR I S NOT APPLICABLE FOR DIALYSIS PATIHUGH TS. [id number] 07:33:00 Test Item Value Reference Range Interpretation Comments MAGNESIUM (BEAKER) (test code = 1.6 mg/dL 1.6-2.6 627) [id number] 07:33:00 Test Item Value Reference Range Interpretation Comments PHOSPHORUS (BEAKER) (test code = 2.7 mg/dL 2.3-4.7 604) POCT-GLUCOSE [id number] 21:53:00 Test Item Value Reference Range Interpretation Comments POC-GLUCOSE METER 191 mg/dL 70-110 H TESTED AT [place] [address] ([facility] (test code = CLAIRE [place] 1538) [address] POCT-GLUCOSE [id number] 17:16:00 Test Item Value Reference Range Interpretation Comments POC-GLUCOSE METER 162 mg/dL 70-110 H TESTED AT [place] [address] ([facility]) (test code = CLAIRE [place] 1538) [address] POCT-GLUCOSE [id number] 14:13:00 Test Item Value Reference Range Interpretation Comments POC-GLUCOSE METER 154 mg/dL 70-110 H TESTED AT [place] [address] ([facility]) (test code = CLAIRE [place] 1538) [address] SPUTUM CULTURE + GRAM [id number] 12:50:00 Test Item Value Reference Range Interpretation Comments CULTURE (BEAKER) 4+ Normal respiratory (test code = 1095) natasha present GRAM STAIN RESULT 1+ WBCs (BEAKER) (test code = 1123) GRAM STAIN RESULT 0-5 epithelial cells (BEAKER) (test code = 37295) GRAM STAIN RESULT 3+ gram negative rods (BEAKER) (test code = 59859) GRAM STAIN RESULT 2+ gram positive cocci (BEAKER) (test code = in pairs 729040) POCT-GLUCOSE [id number] 12:46:00 Test Item Value Reference Range Interpretation Comments POC-GLUCOSE METER 198 mg/dL 70-110 H TESTED AT [facility] (BEAKER) (test code = CLAIRE [place] 1538) [address] CBC W/PLT COUNT & AUTO [id number] 10:23:00 Test Item Value Reference Range Interpretation Comments WHITE BLOOD CELL COUNT (BEAKER) 9.9 K/ L 3.5-10.5 (test code = 775) RED BLOOD CELL COUNT (BEAKER) 2.92 M/ L 4.63-6.08 L (test code = 761) HEMOGLOBIN (BEAKER) (test code = 8.9 GM/DL 13.7-17.5 L 410) HEMATOCRIT (BEAKER) (test code = 27.5 % 40.1-51.0 L 411) MEAN CORPUSCULAR VOLUME (BEAKER) 94.2 fL 79.0-92.2 H (test code = 753) MEAN CORPUSCULAR HEMOGLOBIN 30.5 pg 25.7-32.2 (BEAKER) (test code = 751) MEAN CORPUSCULAR HEMOGLOBIN CONC 32.4 GM/DL 32.3-36.5 (BEAKER) (test code = 752) RED CELL DISTRIBUTION WIDTH 14.6 % 11.6-14.4 H (BEAKER) (test code = 412) PLATELET COUNT (BEAKER) (test 399 K/CU MM 150-450 code = 756) MEAN PLATELET VOLUME (BEAKER) 8.1 fL 9.4-12.4 L (test code = 754) NUCLEATED RED BLOOD CELLS 0 /100 WBC 0-0 (BEAKER) (test code = 413) (CELLAVISION MANUAL DIFF)[id number] 10:23:00 Test Item Value Reference Range Interpretation Comments NEUTROPHILS - REL 88 % (CELLAVISION)(BEAKER) (test code = 2816) LYMPHOCYTES - REL 5 % (CELLAVISION)(BEAKER) (test code = 2817) MONOCYTES - REL 3 % (CELLAVISION)(BEAKER) (test code = 2818) BANDS - REL (CELLAVISION)(BEAKER) 2 % 0-10 (test code = 2826) ATYPICAL LYMPHOCYTES - REL 2 % 0-0 H (CELLAVISION)(BEAKER) (test code = 2829) NEUTROPHILS - ABS 8.71 K/ul 1.78-5.38 H (CELLAVISION)(BEAKER) (test code = 2830) LYMPHOCYTES - ABS 0.50 K/ul 1.32-3.57 L (CELLAVISION)(BEAKER) (test code = 2831) MONOCYTES - ABS 0.30 K/uL 0.30-0.82 (CELLAVISION)(BEAKER) (test code = 2832) BANDS - ABS (CELLAVISION)(BEAKER) 0.20 K/uL 0.00-0.80 (test code = 2840) ATYPICAL LYMPHOCYTES - ABS 0.20 K/uL 0.00-0.00 H (CELLAVISION)(BEAKER) (test code = 2858) TOTAL COUNTED (BEAKER) (test code = 100 1351) WBC MORPHOLOGY (BEAKER) (test code Normal = 487) PLT MORPHOLOGY (BEAKER) (test code Normal = 486) ANISOCYTOSIS (BEAKER) (test code = 1+ few 961) MICROCYTES (BEAKER) (test code = 1+ few 965) ARTIFACT (CELLAVISION)(BEAKER) Present (test code = 3432) PLATELET CONCENTRATION Adequate (CELLAVISION)(BEAKER) (test code = 3438) Received comment: User comments: Slide comments:POCT-GLUCOSE [id number] 09:07:00 Test Item Value Reference Range Interpretation Comments POC-GLUCOSE METER 158 mg/dL 70-110 H TESTED AT [facility] 6720 (BEAKER) (test code = CLAIRE [place] 1538) [address] POCT-GLUCOSE [id number] 07:48:00 Test Item Value Reference Range Interpretation Comments POC-GLUCOSE METER 174 mg/dL 70-110 H TESTED AT [facility] (test code = [facility] 1538) [address] BASIC METABOLIC [id number] 04:41:00 Test Item Value Reference Range Interpretation Comments SODIUM (BEAKER) 134 meq/L 136-145 L (test code = 381) POTASSIUM (BEAKER) 4.2 meq/L 3.5-5.1 (test code = 379) CHLORIDE (BEAKER) 98 meq/L 98-107 (test code = 382) CO2 (BEAKER) (test 26 meq/L 22-29 code = 355) BLOOD UREA NITROGEN 28 mg/dL 7-21 H (BEAKER) (test code = 354) CREATININE (BEAKER) 3.71 mg/dL 0.57-1.25 H (test code = 358) GLUCOSE RANDOM 119 mg/dL 70-105 H (BEAKER) (test code = 652) CALCIUM (BEAKER) 8.7 mg/dL 8.4-10.2 (test code = 697) EGFR (BEAKER) (test 17 mL/min/1.73 ESTIMA JAMIE GFR IS code = 1092) sq m NOT ACCURATE CREATININE CLEARANCE IN PREDICTING GLOMERULAR FILTRATION RATE . ESTIMATED GFR I S NOT APPLICABLE FOR DIALYSIS PATIEN TS. [id number] 04:37:00 Test Item Value Reference Range Interpretation Comments PHOSPHORUS (BEAKER) (test code = 2.1 mg/dL 2.3-4.7 L 604) POCT-GLUCOSE [id number] 22:54:00 Test Item Value Reference Range Interpretation Comments POC-GLUCOSE METER 132 mg/dL 70-110 H TESTED AT [facility] 6720 (BEAKER) (test code = [facility] 1538) [address] POCT-GLUCOSE [id number] 18:25:00 Test Item Value Reference Range Interpretation Comments POC-GLUCOSE METER 72 mg/dL 70-110 TESTED AT [place] [id number] [facility] (test code = [facility] [address] 1538) POCT-GLUCOSE [id number] 18:25:00 Test Item Value Reference Range Interpretation Comments POC-GLUCOSE METER 44 mg/dL 70-110 L TESTED AT [facility] ([facility] (test code = [facility] [address] 1538) POCT-GLUCOSE [id number] 13:33:00 Test Item Value Reference Range Interpretation Comments POC-GLUCOSE METER 104 mg/dL 70-110 TESTED AT [facility] 6720 (BEAKER) (test code = [facility] Yadira [facility] 1538) [address] POCT-GLUCOSE [id number] 08:59:00 Test Item Value Reference Range Interpretation Comments POC-GLUCOSE METER 83 mg/dL 70-110 TESTED AT [facility] 6720 (BEAKER) (test code = [facility] Yadira [facility] [address] 1538) BASIC METABOLIC [id number] 08:34:00 Test Item Value Reference Range Interpretation Comments SODIUM (BEAKER) 136 meq/L 136-145 (test code = 381) POTASSIUM (BEAKER) 4.0 meq/L 3.5-5.1 (test code = 379) CHLORIDE (BEAKER) 100 meq/L 98-107 (test code = 382) CO2 (BEAKER) (test 25 meq/L 22-29 code = 355) BLOOD UREA NITROGEN 51 mg/dL 7-21 H (BEAKER) (test code = 354) CREATININE (BEAKER) 5.33 mg/dL 0.57-1.25 H (test code = 358) GLUCOSE RANDOM 84 mg/dL 70-105 (BEAKER) (test code = 652) CALCIUM (BEAKER) 8.1 mg/dL 8.4-10.2 L (test code = 697) EGFR (BEAKER) (test 11 mL/min/1.73 ESTIMA JAMIE GFR IS code = 1092) sq m NOT ACCURATE CREATININE CLEARANCE IN PREDICTING GLOMERULAR FILTRATION RATE . ESTIMATED GFR I S NOT APPLICABLE FOR DIALYSIS PATIEN TS. CBC W/PLT COUNT & AUTO [id number] 08:30:00 Test Item Value Reference Range Interpretation Comments WHITE BLOOD CELL COUNT (BEAKER) 16.2 K/ L 3.5-10.5 H (test code = 775) RED BLOOD CELL COUNT (BEAKER) 2.67 M/ L 4.63-6.08 L (test code = 761) HEMOGLOBIN (BEAKER) (test code = 8.3 GM/DL 13.7-17.5 L 410) HEMATOCRIT (BEAKER) (test code = 25.2 % 40.1-51.0 L 411) MEAN CORPUSCULAR VOLUME (BEAKER) 94.4 fL 79.0-92.2 H (test code = 753) MEAN CORPUSCULAR HEMOGLOBIN 31.1 pg 25.7-32.2 (BEAKER) (test code = 751) MEAN CORPUSCULAR HEMOGLOBIN CONC 32.9 GM/DL 32.3-36.5 (BEAKER) (test code = 752) RED CELL DISTRIBUTION WIDTH 14.9 % 11.6-14.4 H (BEAKER) (test code = 412) PLATELET COUNT (BEAKER) (test 468 K/CU MM 150-450 H code = 756) MEAN PLATELET VOLUME (BEAKER) 8.1 fL 9.4-12.4 L (test code = 754) NUCLEATED RED BLOOD CELLS 0 /100 WBC 0-0 (BEAKER) (test code = 413) NEUTROPHILS RELATIVE PERCENT 89 % (BEAKER) (test code = 429) LYMPHOCYTES RELATIVE PERCENT 4 % (BEAKER) (test code = 430) MONOCYTES RELATIVE PERCENT 5 % (BEAKER) (test code = 431) EOSINOPHILS RELATIVE PERCENT 1 % (BEAKER) (test code = 432) BASOPHILS RELATIVE PERCENT 0 % (BEAKER) (test code = 437) NEUTROPHILS ABSOLUTE COUNT 14.37 K/ L 1.78-5.38 H (BEAKER) (test code = 670) LYMPHOCYTES ABSOLUTE COUNT 0.70 K/ L 1.32-3.57 L (BEAKER) (test code = 414) MONOCYTES ABSOLUTE COUNT (BEAKER) 0.84 K/ L 0.30-0.82 H (test code = 415) EOSINOPHILS ABSOLUTE COUNT 0.09 K/ L 0.04-0.54 (BEAKER) (test code = 416) BASOPHILS ABSOLUTE COUNT (BEAKER) 0.02 K/ L 0.01-0.08 (test code = 417) IMMATURE GRANULOCYTES-RELATIVE 1 % 0-1 PERCENT (BEAKER) (test code = 8108) POCT-GLUCOSE [id number] 22:52:00 Test Item Value Reference Range Interpretation Comments POC-GLUCOSE METER 111 mg/dL 70-110 H TESTED AT [facility] 6720 (BEAKER) (test code = CLA[place] 1538) [address] POCT-GLUCOSE [id number] 17:11:00 Test Item Value Reference Range Interpretation Comments POC-GLUCOSE METER 123 mg/dL 70-110 H TESTED AT [facility] 6720 (BEAKER) (test code = CLAIRE May [place] 1538) [address] POCT-GLUCOSE [id number] 12:44:00 Test Item Value Reference Range Interpretation Comments POC-GLUCOSE METER 94 mg/dL 70-110 TESTED AT [facility] 6720 (BEAKER) (test code = [place] [address] 1538) HEMOGLOBIN AND [id number] 11:09:00 Test Item Value Reference Range Interpretation Comments HEMOGLOBIN (BEAKER) (test code = 6.9 GM/DL 13.7-17.5 L 410) HEMATOCRIT (BEAKER) (test code = 22.0 % 40.1-51.0 L 411) RESPIRATORY PANEL [id number] 09:14:00 Test Item Value Reference Range Interpretation Comments HUMAN METAPNEUMOVIRUS Not detected Not detected, (BEAKER) (test code = Equivocal 2683) RHINOVIRUS (BEAKER) Not detected Not detected, (test code = 2684) Equivocal INFLUENZA A (BEAKER) Not detected, (test code = 2685) Equivocal INFLUENZA A (NO Not detected, SUBTYPE) (test code = Equivocal 3606) INFLUENZA A SUBTYPE H1 Not detected, (BEAKER) (test code = Equivocal 2686) INFLUENZA A SUBTYPE H3 Not detected, (BEAKER) (test code = Equivocal 2687) INFLUENZA A SUBTYPE Detected Not detected, A Droplet isolation. H1-2009 (BEAKER) (test Equivocal Oselt amivir is the code = 3198) drug of choice. Consider stoppi ng antibiotics. INFLUENZA B (BEAKER) Not detected Not detected, (test code = 2688) Equivocal RESPIRATORY SYNCYTIAL Not detected Not detected, VIRUS (BEAKER) (test Equivocal code = 3199) PARAINFLUENZA VIRUS 1 Not detected Not detected, (BEAKER) (test code = Equivocal 2691) PARAINFLUENZA VIRUS 2 Not detected Not detected, (BEAKER) (test code = Equivocal 2692) PARAINFLUENZA VIRUS 3 Not detected Not detected, (BEAKER) (test code = Equivocal 2693) PARAINFLUENZA VIRUS 4 Not detected Not detected, (BEAKER) (test code = Equivocal 3200) ADENOVIRUS (BEAKER) Not detected Not detected, (test code = 2694) Equivocal CORONAVIRUS 229E Not detected Not detected, (BEAKER) (test code = Equivocal 3201) CORONAVIRUS HKU1 Not detected Not detected, (BEAKER) (test code = Equivocal 3202) CORONAVIRUS NL63 Not detected Not detected, (BEAKER) (test code = Equivocal 3203) CORONAVIRUS OC43 Not detected Not detected, (BEAKER) (test code = Equivocal 3204) BORDETELLA PERTUSSIS Not detected Not detected, (BEAKER) (test code = Equivocal 3205) CHLAMYDOPHILA Not detected Not detected, PNEUMONIAE (BEAKER) Equivocal (test code = 3206) MYCOPLASMA PNEUMONIAE Not detected Not detected, (BEAKER) (test code = Equivocal 3207) Other viruses and bacteria not targeted by this PCR panel cannot be excluded; therefore clinical correlation and follow up of serology, culture results, and other molecular studies is required. The results are not intended to be used as the sole means for clinical diagnosis or patient management decisions. This sample was tested at the [facility] using the Expert Dynamics[employer] Respiratory Panel. It is FDA cleared and has been verified and approved by the [facility] for clinical use on nasal swab specimens. It is not FDA-cleared for use on bronchial wash/lavage samples. However, for this sample type, validation was performed and test characteristics were determined and approved, by [facility] [employer] laboratory for clinical use under the Clinical Laboratory Improvement Amendments (CLIA) of 1988 requirements. Therefore, FDA clearance isnot required. This laboratory is CLIA- certified and [employer] (CAP)-accredited to perform high complexity testing.POCT-GLUCOSE [id number] 08:18:00 Test Item Value Reference Range Interpretation Comments POC-GLUCOSE METER 85 mg/dL 70-110 TESTED AT [facility] 6720 ([facility]) (test code = [facility] [address] 1538) BASIC METABOLIC [id number] 05:38:00 Test Item Value Reference Range Interpretation Comments SODIUM (BEAKER) 137 meq/L 136-145 (test code = 381) POTASSIUM (BEAKER) 3.9 meq/L 3.5-5.1 (test code = 379) CHLORIDE (BEAKER) 101 meq/L 98-107 (test code = 382) CO2 (BEAKER) (test 27 meq/L 22-29 code = 355) BLOOD UREA NITROGEN 39 mg/dL 7-21 H (BEAKER) (test code = 354) CREATININE (BEAKER) 4.03 mg/dL 0.57-1.25 H (test code = 358) GLUCOSE RANDOM 77 mg/dL 70-105 (BEAKER) (test code = 652) CALCIUM (BEAKER) 8.3 mg/dL 8.4-10.2 L (test code = 697) EGFR (BEAKER) (test 15 mL/min/1.73 ESTIMA JAMIE GFR IS code = 1092) sq m NOT ACCURATE CREATININE CLEARANCE IN PREDICTING GLOMERULAR FILTRATION RATE . ESTIMATED GFR I S NOT APPLICABLE FOR DIALYSIS PATIEN TS. CBC W/PLT COUNT & AUTO [id number] 05:32:00 Test Item Value Reference Range Interpretation Comments WHITE BLOOD CELL COUNT (BEAKER) 12.1 K/ L 3.5-10.5 H (test code = 775) RED BLOOD CELL COUNT (BEAKER) 2.20 M/ L 4.63-6.08 L (test code = 761) HEMOGLOBIN (BEAKER) (test code = 6.6 GM/DL 13.7-17.5 L 410) HEMATOCRIT (BEAKER) (test code = 21.0 % 40.1-51.0 L 411) MEAN CORPUSCULAR VOLUME (BEAKER) 95.5 fL 79.0-92.2 H (test code = 753) MEAN CORPUSCULAR HEMOGLOBIN 30.0 pg 25.7-32.2 (BEAKER) (test code = 751) MEAN CORPUSCULAR HEMOGLOBIN CONC 31.4 GM/DL 32.3-36.5 L (BEAKER) (test code = 752) RED CELL DISTRIBUTION WIDTH 14.6 % 11.6-14.4 H (BEAKER) (test code = 412) PLATELET COUNT (BEAKER) (test 340 K/CU MM 150-450 code = 756) MEAN PLATELET VOLUME (BEAKER) 7.9 fL 9.4-12.4 L (test code = 754) NUCLEATED RED BLOOD CELLS 0 /100 WBC 0-0 (BEAKER) (test code = 413) NEUTROPHILS RELATIVE PERCENT 84 % (BEAKER) (test code = 429) LYMPHOCYTES RELATIVE PERCENT 7 % (BEAKER) (test code = 430) MONOCYTES RELATIVE PERCENT 8 % (BEAKER) (test code = 431) EOSINOPHILS RELATIVE PERCENT 0 % (BEAKER) (test code = 432) BASOPHILS RELATIVE PERCENT 0 % (BEAKER) (test code = 437) NEUTROPHILS ABSOLUTE COUNT 10.18 K/ L 1.78-5.38 H (BEAKER) (test code = 670) LYMPHOCYTES ABSOLUTE COUNT 0.83 K/ L 1.32-3.57 L (BEAKER) (test code = 414) MONOCYTES ABSOLUTE COUNT (BEAKER) 0.97 K/ L 0.30-0.82 H (test code = 415) EOSINOPHILS ABSOLUTE COUNT 0.03 K/ L 0.04-0.54 L (BEAKER) (test code = 416) BASOPHILS ABSOLUTE COUNT (BEAKER) 0.02 K/ L 0.01-0.08 (test code = 417) IMMATURE GRANULOCYTES-RELATIVE 1 % 0-1 PERCENT (BEAKER) (test code = 2801) LACTIC ACID, VENOUS, WHOLE [id number] 23:16:00 Test Item Value Reference Range Interpretation Comments LACTATE BLOOD VENOUS (2) (BEAKER) 0.7 mmol/L 0.5-2.2 (test code = 2872) RAD, CHEST, 1 VIEW, NON [id number] 22:37:00Reason for exam:->new fever, coughShould this be performed at the bedside?->YesFINAL REPORT History: Fever and cough. Comparison: 06/03/2018 Findings: A single view of the chest is submitted. The cardiac silhouette is within normal limits for size. The patient has undergone previous CABG. The lung volumes are slightly low. There is mild central pulmonaryvascular prominence. Vague retrocardiac opacity may reflect a combination of atelectasis and edema but pneumonitis should be excluded clinically. There is no pneumothorax, large pleural effusion or acute bony abnormality. Left-sided tunneled central venous catheters are in place. Signed: Malena Kramer MDReport Verified Date/Time: 06/11/2018 22:37:13 Reading Location: [address] Reading Room POCT- GLUCOSE [id number] 21:13:00 Test Item Value Reference Range Interpretation Comments POC-GLUCOSE METER 136 mg/dL 70-110 H TESTED AT [facility] (BEAKER) (test code = CLAIRE May [place] 1538) [address] POCT-GLUCOSE [id number] 18:31:00 Test Item Value Reference Range Interpretation Comments POC-GLUCOSE METER 146 mg/dL 70-110 H TESTED AT [facility] (BEAKER) (test code = CLAIRE May [place] 1538) [address] HEMOGLOBIN AND [id number] 09:12:00 Test Item Value Reference Range Interpretation Comments HEMOGLOBIN (BEAKER) (test code = 7.2 GM/DL 13.7-17.5 L 410) HEMATOCRIT (BEAKER) (test code = 22.6 % 40.1-51.0 L 411) BASIC METABOLIC [id number] 06:36:00 Test Item Value Reference Range Interpretation Comments SODIUM (BEAKER) 135 meq/L 136-145 L (test code = 381) POTASSIUM (BEAKER) 3.7 meq/L 3.5-5.1 (test code = 379) CHLORIDE (BEAKER) 99 meq/L 98-107 (test code = 382) CO2 (BEAKER) (test 27 meq/L 22-29 code = 355) BLOOD UREA NITROGEN 55 mg/dL 7-21 H (BEAKER) (test code = 354) CREATININE (BEAKER) 5.11 mg/dL 0.57-1.25 H (test code = 358) GLUCOSE RANDOM 138 mg/dL 70-105 H (BEAKER) (test code = 652) CALCIUM (BEAKER) 7.9 mg/dL 8.4-10.2 L (test code = 697) EGFR (BEAKER) (test 12 mL/min/1.73 ESTIMA JAMIE GFR IS code = 1092) sq m NOT ACCURATE CREATININE CLEARANCE IN PREDICTING GLOMERULAR FILTRATION RATE . ESTIMATED GFR I S NOT APPLICABLE FOR DIALYSIS PATIEN TS. CBC W/PLT COUNT & AUTO [id number] 06:12:00 Test Item Value Reference Range Interpretation Comments WHITE BLOOD CELL COUNT (BEAKER) 10.4 K/ L 3.5-10.5 (test code = 775) RED BLOOD CELL COUNT (BEAKER) 2.27 M/ L 4.63-6.08 L (test code = 761) HEMOGLOBIN (BEAKER) (test code = 6.8 GM/DL 13.7-17.5 L 410) HEMATOCRIT (BEAKER) (test code = 21.6 % 40.1-51.0 L 411) MEAN CORPUSCULAR VOLUME (BEAKER) 95.2 fL 79.0-92.2 H (test code = 753) MEAN CORPUSCULAR HEMOGLOBIN 30.0 pg 25.7-32.2 (BEAKER) (test code = 751) MEAN CORPUSCULAR HEMOGLOBIN CONC 31.5 GM/DL 32.3-36.5 L (BEAKER) (test code = 752) RED CELL DISTRIBUTION WIDTH 14.6 % 11.6-14.4 H (BEAKER) (test code = 412) PLATELET COUNT (BEAKER) (test 355 K/CU MM 150-450 code = 756) MEAN PLATELET VOLUME (BEAKER) 8.1 fL 9.4-12.4 L (test code = 754) NUCLEATED RED BLOOD CELLS 0 /100 WBC 0-0 (BEAKER) (test code = 413) NEUTROPHILS RELATIVE PERCENT 84 % (BEAKER) (test code = 429) LYMPHOCYTES RELATIVE PERCENT 5 % (BEAKER) (test code = 430) MONOCYTES RELATIVE PERCENT 8 % (BEAKER) (test code = 431) EOSINOPHILS RELATIVE PERCENT 1 % (BEAKER) (test code = 432) BASOPHILS RELATIVE PERCENT 0 % (BEAKER) (test code = 437) NEUTROPHILS ABSOLUTE COUNT 8.77 K/ L 1.78-5.38 H (BEAKER) (test code = 670) LYMPHOCYTES ABSOLUTE COUNT 0.55 K/ L 1.32-3.57 L (BEAKER) (test code = 414) MONOCYTES ABSOLUTE COUNT (BEAKER) 0.87 K/ L 0.30-0.82 H (test code = 415) EOSINOPHILS ABSOLUTE COUNT 0.07 K/ L 0.04-0.54 (BEAKER) (test code = 416) BASOPHILS ABSOLUTE COUNT (BEAKER) 0.02 K/ L 0.01-0.08 (test code = 417) IMMATURE GRANULOCYTES-RELATIVE 1 % 0-1 PERCENT (BEAKER) (test code = 2801) POCT-GLUCOSE [id number] 23:03:00 Test Item Value Reference Range Interpretation Comments POC-GLUCOSE METER 175 mg/dL 70-110 H TESTED AT [facility] (BEAKER) (test code = CLAIRE [place] 1538) [address] POCT-GLUCOSE [id number] 18:38:00 Test Item Value Reference Range Interpretation Comments POC-GLUCOSE METER 225 mg/dL 70-110 H TESTED AT [facility] (BEAKER) (test code = CLAIRE May [place] 1538) [address] POCT-GLUCOSE [id number] 07:39:00 Test Item Value Reference Range Interpretation Comments POC-GLUCOSE METER 102 mg/dL 70-110 TESTED AT [facility] 67[facility] (BEAKER) (test code = CLAIRE May [place] 1538) [address] BASIC METABOLIC [id number] 07:25:00 Test Item Value Reference Range Interpretation Comments SODIUM (BEAKER) 136 meq/L 136-145 (test code = 381) POTASSIUM (BEAKER) 3.7 meq/L 3.5-5.1 (test code = 379) CHLORIDE (BEAKER) 99 meq/L 98-107 (test code = 382) CO2 (BEAKER) (test 26 meq/L 22-29 code = 355) BLOOD UREA NITROGEN 45 mg/dL 7-21 H (BEAKER) (test code = 354) CREATININE (BEAKER) 4.53 mg/dL 0.57-1.25 H (test code = 358) GLUCOSE RANDOM 91 mg/dL 70-105 (BEAKER) (test code = 652) CALCIUM (BEAKER) 7.8 mg/dL 8.4-10.2 L (test code = 697) EGFR (BEAKER) (test 13 mL/min/1.73 ESTIMA JAMIE GFR IS code = 1092) sq m NOT ACCURATE CREATININE CLEARANCE IN PREDICTING GLOMERULAR FILTRATION RATE . ESTIMATED GFR I S NOT APPLICABLE FOR DIALYSIS PATIEN TS. CBC W/PLT COUNT & AUTO [id number] 06:31:00 Test Item Value Reference Range Interpretation Comments WHITE BLOOD CELL COUNT (BEAKER) 13.4 K/ L 3.5-10.5 H (test code = 775) RED BLOOD CELL COUNT (BEAKER) 2.49 M/ L 4.63-6.08 L (test code = 761) HEMOGLOBIN (BEAKER) (test code = 7.6 GM/DL 13.7-17.5 L 410) HEMATOCRIT (BEAKER) (test code = 23.6 % 40.1-51.0 L 411) MEAN CORPUSCULAR VOLUME (BEAKER) 94.8 fL 79.0-92.2 H (test code = 753) MEAN CORPUSCULAR HEMOGLOBIN 30.5 pg 25.7-32.2 (BEAKER) (test code = 751) MEAN CORPUSCULAR HEMOGLOBIN CONC 32.2 GM/DL 32.3-36.5 L (BEAKER) (test code = 752) RED CELL DISTRIBUTION WIDTH 14.6 % 11.6-14.4 H (BEAKER) (test code = 412) PLATELET COUNT (BEAKER) (test 401 K/CU MM 150-450 code = 756) MEAN PLATELET VOLUME (BEAKER) 8.1 fL 9.4-12.4 L (test code = 754) NUCLEATED RED BLOOD CELLS 0 /100 WBC 0-0 (BEAKER) (test code = 413) NEUTROPHILS RELATIVE PERCENT 86 % (BEAKER) (test code = 429) LYMPHOCYTES RELATIVE PERCENT 4 % (BEAKER) (test code = 430) MONOCYTES RELATIVE PERCENT 7 % (BEAKER) (test code = 431) EOSINOPHILS RELATIVE PERCENT 1 % (BEAKER) (test code = 432) BASOPHILS RELATIVE PERCENT 0 % (BEAKER) (test code = 437) NEUTROPHILS ABSOLUTE COUNT 11.54 K/ L 1.78-5.38 H (BEAKER) (test code = 670) LYMPHOCYTES ABSOLUTE COUNT 0.55 K/ L 1.32-3.57 L (BEAKER) (test code = 414) MONOCYTES ABSOLUTE COUNT (BEAKER) 0.90 K/ L 0.30-0.82 H (test code = 415) EOSINOPHILS ABSOLUTE COUNT 0.17 K/ L 0.04-0.54 (BEAKER) (test code = 416) BASOPHILS ABSOLUTE COUNT (BEAKER) 0.04 K/ L 0.01-0.08 (test code = 417) IMMATURE GRANULOCYTES-RELATIVE 1 % 0-1 PERCENT (BEAKER) (test code = 2801) POCT-GLUCOSE [id number] 17:30:00 Test Item Value Reference Range Interpretation Comments POC-GLUCOSE METER 196 mg/dL 70-110 H TESTED AT [facility] (BEAKER) (test code = CLAIRE [place] 1538) [address] POCT-GLUCOSE [id number] 12:36:00 Test Item Value Reference Range Interpretation Comments POC-GLUCOSE METER 220 mg/dL 70-110 H TESTED AT [facility] (BEAKER) (test code = CLAIRE [place] 1538) [address] BASIC METABOLIC [id number] 07:35:00 Test Item Value Reference Range Interpretation Comments SODIUM (BEAKER) 139 meq/L 136-145 (test code = 381) POTASSIUM (BEAKER) 3.5 meq/L 3.5-5.1 (test code = 379) CHLORIDE (BEAKER) 100 meq/L 98-107 (test code = 382) CO2 (BEAKER) (test 30 meq/L 22-29 H code = 355) BLOOD UREA NITROGEN 39 mg/dL 7-21 H (BEAKER) (test code = 354) CREATININE (BEAKER) 4.10 mg/dL 0.57-1.25 H (test code = 358) GLUCOSE RANDOM 122 mg/dL 70-105 H (BEAKER) (test code = 652) CALCIUM (BEAKER) 7.8 mg/dL 8.4-10.2 L (test code = 697) EGFR (BEAKER) (test 15 mL/min/1.73 ESTIMA JAMIE GFR IS code = 1092) sq m NOT ACCURATE CREATININE CLEARANCE IN PREDICTING GLOMERULAR FILTRATION RATE . ESTIMATED GFR I S NOT APPLICABLE FOR DIALYSIS PATIEN TS. CBC W/PLT COUNT & AUTO [id number] 07:31:00 Test Item Value Reference Range Interpretation Comments WHITE BLOOD CELL COUNT (BEAKER) 16.7 K/ L 3.5-10.5 H (test code = 775) RED BLOOD CELL COUNT (BEAKER) 2.44 M/ L 4.63-6.08 L (test code = 761) HEMOGLOBIN (BEAKER) (test code = 7.4 GM/DL 13.7-17.5 L 410) HEMATOCRIT (BEAKER) (test code = 22.9 % 40.1-51.0 L 411) MEAN CORPUSCULAR VOLUME (BEAKER) 93.9 fL 79.0-92.2 H (test code = 753) MEAN CORPUSCULAR HEMOGLOBIN 30.3 pg 25.7-32.2 (BEAKER) (test code = 751) MEAN CORPUSCULAR HEMOGLOBIN CONC 32.3 GM/DL 32.3-36.5 (BEAKER) (test code = 752) RED CELL DISTRIBUTION WIDTH 14.7 % 11.6-14.4 H (BEAKER) (test code = 412) PLATELET COUNT (BEAKER) (test 372 K/CU MM 150-450 code = 756) MEAN PLATELET VOLUME (BEAKER) 8.4 fL 9.4-12.4 L (test code = 754) NUCLEATED RED BLOOD CELLS 0 /100 WBC 0-0 (BEAKER) (test code = 413) NEUTROPHILS RELATIVE PERCENT 88 % (BEAKER) (test code = 429) LYMPHOCYTES RELATIVE PERCENT 4 % (BEAKER) (test code = 430) MONOCYTES RELATIVE PERCENT 6 % (BEAKER) (test code = 431) EOSINOPHILS RELATIVE PERCENT 1 % (BEAKER) (test code = 432) BASOPHILS RELATIVE PERCENT 0 % (BEAKER) (test code = 437) NEUTROPHILS ABSOLUTE COUNT 14.62 K/ L 1.78-5.38 H (BEAKER) (test code = 670) LYMPHOCYTES ABSOLUTE COUNT 0.64 K/ L 1.32-3.57 L (BEAKER) (test code = 414) MONOCYTES ABSOLUTE COUNT (BEAKER) 1.05 K/ L 0.30-0.82 H (test code = 415) EOSINOPHILS ABSOLUTE COUNT 0.14 K/ L 0.04-0.54 (BEAKER) (test code = 416) BASOPHILS ABSOLUTE COUNT (BEAKER) 0.03 K/ L 0.01-0.08 (test code = 417) IMMATURE GRANULOCYTES-RELATIVE 1 % 0-1 PERCENT (BEAKER) (test code = 2801) POCT-GLUCOSE [id number] 07:27:00 Test Item Value Reference Range Interpretation Comments POC-GLUCOSE METER 140 mg/dL 70-110 H TESTED AT [place] [address] ([facility]) (test code = [facility] 1538) [address] POCT-GLUCOSE [id number] 18:26:00 Test Item Value Reference Range Interpretation Comments POC-GLUCOSE METER 178 mg/dL 70-110 H TESTED AT [place] [address] ([facility]) (test code = [facility] Yadira [facility] 1538) [address] POCT-GLUCOSE [id number] 12:56:00 Test Item Value Reference Range Interpretation Comments POC-GLUCOSE METER 95 mg/dL 70-110 TESTED AT [place] [address] ([facility]) (test code = [facility] [address] 1538) CBC W/PLT COUNT & AUTO [id number] 12:45:00 Test Item Value Reference Range Interpretation Comments WHITE BLOOD CELL COUNT (BEAKER) 21.7 K/ L 3.5-10.5 H (test code = 775) RED BLOOD CELL COUNT (BEAKER) 1.83 M/ L 4.63-6.08 L (test code = 761) HEMOGLOBIN (BEAKER) (test code = 5.6 GM/DL 13.7-17.5 LL 410) HEMATOCRIT (BEAKER) (test code = 17.3 % 40.1-51.0 L 411) MEAN CORPUSCULAR VOLUME (BEAKER) 94.5 fL 79.0-92.2 H (test code = 753) MEAN CORPUSCULAR HEMOGLOBIN 30.6 pg 25.7-32.2 (BEAKER) (test code = 751) MEAN CORPUSCULAR HEMOGLOBIN CONC 32.4 GM/DL 32.3-36.5 (BEAKER) (test code = 752) RED CELL DISTRIBUTION WIDTH 14.6 % 11.6-14.4 H (BEAKER) (test code = 412) PLATELET COUNT (BEAKER) (test 377 K/CU MM 150-450 code = 756) MEAN PLATELET VOLUME (BEAKER) 8.1 fL 9.4-12.4 L (test code = 754) NUCLEATED RED BLOOD CELLS 0 /100 WBC 0-0 (BEAKER) (test code = 413) (CELLAVISION MANUAL DIFF)2018-06-08 12:45:00 Test Item Value Reference Range Interpretation Comments NEUTROPHILS - REL 92 % (CELLAVISION)(BEAKER) (test code = 2816) LYMPHOCYTES - REL 3 % (CELLAVISION)(BEAKER) (test code = 2817) MONOCYTES - REL 3 % (CELLAVISION)(BEAKER) (test code = 2818) BANDS - REL (CELLAVISION)(BEAKER) 2 % 0-10 (test code = 2826) NEUTROPHILS - ABS 19.96 K/ul 1.78-5.38 H (CELLAVISION)(BEAKER) (test code = 2830) LYMPHOCYTES - ABS 0.65 K/ul 1.32-3.57 L (CELLAVISION)(BEAKER) (test code = 2831) MONOCYTES - ABS 0.65 K/uL 0.30-0.82 (CELLAVISION)(BEAKER) (test code = 2832) BANDS - ABS (CELLAVISION)(BEAKER) 0.43 K/uL 0.00-0.80 (test code = 2840) TOTAL COUNTED (BEAKER) (test code 100 = 1351) MANUAL NRBC PER 100 CELLS (BEAKER) 1 /100 WBC 0-0 H (test code = 1353) WBC MORPHOLOGY (BEAKER) (test code Normal = 487) PLT MORPHOLOGY (BEAKER) (test code Normal = 486) ANISOCYTOSIS (BEAKER) (test code = 1+ few 961) MICROCYTES (BEAKER) (test code = 1+ few 965) ARTIFACT (CELLAVISION)(BEAKER) Present (test code = 3432) PLATELET CONCENTRATION Adequate (CELLAVISION)(BEAKER) (test code = 3438) Received comment: User comments: Slide comments:HEMOGLOBIN AND HEMATOCRIT 2018-06-08 08:06:00 Test Item Value Reference Range Interpretation Comments HEMOGLOBIN (BEAKER) (test code = 5.3 GM/DL 13.7-17.5 LL 410) HEMATOCRIT (BEAKER) (test code = 16.5 % 40.1-51.0 L 411) POCT-GLUCOSE [id number] 07:29:00 Test Item Value Reference Range Interpretation Comments POC-GLUCOSE METER 106 mg/dL 70-110 TESTED AT [place] [address] (BEAKER) (test code = CLAIRE May [facility] 1538) [address] POCT-GLUCOSE [id number] 06:53:00 Test Item Value Reference Range Interpretation Comments POC-GLUCOSE METER 103 mg/dL 70-110 TESTED AT [place] [id number] (BEAKER) (test code = [place] [facility] 1538) [address] BASIC METABOLIC [id number] 06:36:00 Test Item Value Reference Range Interpretation Comments SODIUM (BEAKER) 138 meq/L 136-145 (test code = 381) POTASSIUM (BEAKER) 3.4 meq/L 3.5-5.1 L (test code = 379) CHLORIDE (BEAKER) 100 meq/L 98-107 (test code = 382) CO2 (BEAKER) (test 27 meq/L code = 355) BLOOD UREA NITROGEN 54 mg/dL 7-21 H (BEAKER) (test code = 354) CREATININE ([facility]) 5.19 mg/dL 0.57-1.25 H (test code = 358) GLUCOSE RANDOM 75 mg/dL 70-105 ([facility]) (test code = 652) CALCIUM ([facility]) 7.3 mg/dL 8.4-10.2 L (test code = 697) EGFR ([facility]) (test 11 mL/min/1.73 ESTIMA JAMIE GFR IS code = 1092) sq m NOT ACCURATE CREATININE CLEARANCE IN PREDICTING GLOMERULAR FILTRATION RATE . ESTIMATED GFR I S NOT APPLICABLE FOR DIALYSIS PATIEN TS. POCT-GLUCOSE [id number] 21:57:00 Test Item Value Reference Range Interpretation Comments POC-GLUCOSE METER 134 mg/dL 70-110 H TESTED AT [place] [address] ([facility]) (test code = [facility] 1538) [address] POCT-GLUCOSE [id number] 13:36:00 Test Item Value Reference Range Interpretation Comments POC-GLUCOSE METER 129 mg/dL 70-110 H TESTED AT [place] [address] ([facility]) (test code = [facility] 1538) [address] POCT-GLUCOSE [id number] 08:23:00 Test Item Value Reference Range Interpretation Comments POC-GLUCOSE METER 80 mg/dL 70-110 TESTED AT [place] [address] ([facility]) (test code = [facility] [address] 1538) CBC W/PLT COUNT & AUTO [id number] 08:02:00 Test Item Value Reference Range Interpretation Comments WHITE BLOOD CELL COUNT ([facility]) 15.3 K/ L 3.5-10.5 H (test code = 775) RED BLOOD CELL COUNT ([facility]) 2.48 M/ L 4.63-6.08 L (test code = 761) HEMOGLOBIN (BEAKER) (test code = 7.5 GM/DL 13.7-17.5 L 410) HEMATOCRIT ([facility]) (test code = 23.4 % 40.1-51.0 L 411) MEAN CORPUSCULAR VOLUME ([facility]) 94.4 fL 79.0-92.2 H (test code = 753) MEAN CORPUSCULAR HEMOGLOBIN 30.2 pg 25.7-32.2 (BEAKER) (test code = 751) MEAN CORPUSCULAR HEMOGLOBIN CONC 32.1 GM/DL 32.3-36.5 L (BEAKER) (test code = 752) RED CELL DISTRIBUTION WIDTH 14.6 % 11.6-14.4 H (BEAKER) (test code = 412) PLATELET COUNT (BEAKER) (test 455 K/CU MM 150-450 H code = 756) MEAN PLATELET VOLUME (BEAKER) 8.1 fL 9.4-12.4 L (test code = 754) NUCLEATED RED BLOOD CELLS 0 /100 WBC 0-0 (BEAKER) (test code = 413) NEUTROPHILS RELATIVE PERCENT 85 % (BEAKER) (test code = 429) LYMPHOCYTES RELATIVE PERCENT 5 % (BEAKER) (test code = 430) MONOCYTES RELATIVE PERCENT 8 % (BEAKER) (test code = 431) EOSINOPHILS RELATIVE PERCENT 1 % (BEAKER) (test code = 432) BASOPHILS RELATIVE PERCENT 0 % (BEAKER) (test code = 437) NEUTROPHILS ABSOLUTE COUNT 13.01 K/ L 1.78-5.38 H (BEAKER) (test code = 670) LYMPHOCYTES ABSOLUTE COUNT 0.70 K/ L 1.32-3.57 L (BEAKER) (test code = 414) MONOCYTES ABSOLUTE COUNT (BEAKER) 1.20 K/ L 0.30-0.82 H (test code = 415) EOSINOPHILS ABSOLUTE COUNT 0.12 K/ L 0.04-0.54 (BEAKER) (test code = 416) BASOPHILS ABSOLUTE COUNT (BEAKER) 0.03 K/ L 0.01-0.08 (test code = 417) IMMATURE GRANULOCYTES-RELATIVE 2 % 0-1 H PERCENT (BEAKER) (test code = 2801) BASIC METABOLIC [id number] 06:28:00 Test Item Value Reference Range Interpretation Comments SODIUM (BEAKER) 140 meq/L 136-145 (test code = 381) POTASSIUM (BEAKER) 3.6 meq/L 3.5-5.1 (test code = 379) CHLORIDE (BEAKER) 101 meq/L 98-107 (test code = 382) CO2 (BEAKER) (test 29 meq/L 22-29 code = 355) BLOOD UREA NITROGEN 49 mg/dL 7-21 H (BEAKER) (test code = 354) CREATININE (BEAKER) 4.56 mg/dL 0.57-1.25 H (test code = 358) GLUCOSE RANDOM 73 mg/dL 70-105 ([facility]) (test code = 652) CALCIUM ([facility]) 8.0 mg/dL 8.4-10.2 L (test code = 697) EGFR ([facility]) (test 13 mL/min/1.73 ESTIMA JAMIE GFR IS code = 1092) sq m NOT ACCURATE CREATININE CLEARANCE IN PREDICTING GLOMERULAR FILTRATION RATE . ESTIMATED GFR I S NOT APPLICABLE FOR DIALYSIS PATIEN TS. POCT-GLUCOSE [id number] 21:14:00 Test Item Value Reference Range Interpretation Comments POC-GLUCOSE METER 155 mg/dL 70-110 H TESTED AT [place] [address] ([facility]) (test code = [place] [facility] 1538) [id number] POCT-GLUCOSE [id number] 17:37:00 Test Item Value Reference Range Interpretation Comments POC-GLUCOSE METER 165 mg/dL 70-110 H TESTED AT [place] [address] ([facility]) (test code = [facility] Yadira [facility] 1538) [address] HEPATITIS B SURFACE [id number] 15:37:00 Test Item Value Reference Range Interpretation Comments HEPATITIS B SURFACE ANTIGEN (2) Nonreactive Nonreactive ([facility]) (test code = 2585) For chronic HD patients, draw HBsAg with each admission then every 30 days.POCT- GLUCOSE [id number] 11:13:00 Test Item Value Reference Range Interpretation Comments POC-GLUCOSE METER 250 mg/dL 70-110 H TESTED AT [place] [address] ([facility]) (test [facility] = [facility] 1538) [address] POCT-GLUCOSE [id number] 09:25:00 Test Item Value Reference Range Interpretation Comments POC-GLUCOSE METER 174 mg/dL 70-110 H TESTED AT [place] [address] ([facility]) (test code = [facility] Yadira [facility] 1538) [address] CBC W/PLT COUNT & AUTO [id number] 06:50:00 Test Item Value Reference Range Interpretation Comments WHITE BLOOD CELL COUNT ([facility]) 15.5 K/ L 3.5-10.5 H (test code = 775) RED BLOOD CELL COUNT ([facility]) 2.74 M/ L 4.63-6.08 L (test code = 761) HEMOGLOBIN ([facility]) (test code = 8.5 GM/DL 13.7-17.5 L 410) HEMATOCRIT (BEAKER) (test code = 25.9 % 40.1-51.0 L 411) MEAN CORPUSCULAR VOLUME (BEAKER) 94.5 fL 79.0-92.2 H (test code = 753) MEAN CORPUSCULAR HEMOGLOBIN 31.0 pg 25.7-32.2 (BEAKER) (test code = 751) MEAN CORPUSCULAR HEMOGLOBIN CONC 32.8 GM/DL 32.3-36.5 (BEAKER) (test code = 752) RED CELL DISTRIBUTION WIDTH 14.7 % 11.6-14.4 H (BEAKER) (test code = 412) PLATELET COUNT (BEAKER) (test 508 K/CU MM 150-450 H code = 756) MEAN PLATELET VOLUME (BEAKER) 8.2 fL 9.4-12.4 L (test code = 754) NUCLEATED RED BLOOD CELLS 0 /100 WBC 0-0 (BEAKER) (test code = 413) NEUTROPHILS RELATIVE PERCENT 87 % (BEAKER) (test code = 429) LYMPHOCYTES RELATIVE PERCENT 4 % (BEAKER) (test code = 430) MONOCYTES RELATIVE PERCENT 6 % (BEAKER) (test code = 431) EOSINOPHILS RELATIVE PERCENT 1 % (BEAKER) (test code = 432) BASOPHILS RELATIVE PERCENT 0 % (BEAKER) (test code = 437) NEUTROPHILS ABSOLUTE COUNT 13.54 K/ L 1.78-5.38 H (BEAKER) (test code = 670) LYMPHOCYTES ABSOLUTE COUNT 0.55 K/ L 1.32-3.57 L (BEAKER) (test code = 414) MONOCYTES ABSOLUTE COUNT (BEAKER) 1.00 K/ L 0.30-0.82 H (test code = 415) EOSINOPHILS ABSOLUTE COUNT 0.21 K/ L 0.04-0.54 (BEAKER) (test code = 416) BASOPHILS ABSOLUTE COUNT (BEAKER) 0.06 K/ L 0.01-0.08 (test code = 417) IMMATURE GRANULOCYTES-RELATIVE 1 % 0-1 PERCENT (BEAKER) (test code = 2801) BASIC METABOLIC [id number] 06:22:00 Test Item Value Reference Range Interpretation Comments SODIUM (BEAKER) 139 meq/L 136-145 (test code = 381) POTASSIUM (BEAKER) 3.9 meq/L 3.5-5.1 (test code = 379) CHLORIDE (BEAKER) 101 meq/L 98-107 (test code = 382) CO2 (BEAKER) (test 26 meq/L 22-29 code = 355) BLOOD UREA NITROGEN 77 mg/dL 7-21 H (BEAKER) (test code = 354) CREATININE (BEAKER) 5.97 mg/dL 0.57-1.25 H (test code = 358) GLUCOSE RANDOM 139 mg/dL 70-105 H (BEAKER) (test code = 652) CALCIUM (BEAKER) 7.9 mg/dL 8.4-10.2 L (test code = 697) EGFR (BEAKER) (test 10 mL/min/1.73 ESTIMA JAMIE GFR IS code = 1092) sq m NOT ACCURATE CREATININE CLEARANCE IN PREDICTING GLOMERULAR FILTRATION RATE . ESTIMATED GFR I S NOT APPLICABLE FOR DIALYSIS PATIEN TS. POCT-GLUCOSE [id number] 22:33:00 Test Item Value Reference Range Interpretation Comments POC-GLUCOSE METER 155 mg/dL 70-110 H TESTED AT [place] [id number] ([facility]) (test code = [facility] Yadira [facility] 1538) [id number] POCT-GLUCOSE [id number] 11:04:00 Test Item Value Reference Range Interpretation Comments POC-GLUCOSE METER 187 mg/dL 70-110 H TESTED AT [place] [address] ([facility]) (test code = [facility] Y[facility]ira [facility] 1538) [id number] 08:11:00 Test Item Value Reference Range Interpretation Comments FERRITIN (BEAKER) (test code = 2536 ng/mL 5-275 H 361) BASIC METABOLIC [id number] 07:44:00 Test Item Value Reference Range Interpretation Comments SODIUM (BEAKER) 139 meq/L 136-145 (test code = 381) POTASSIUM (BEAKER) 3.9 meq/L 3.5-5.1 (test code = 379) CHLORIDE (BEAKER) 102 meq/L 98-107 (test code = 382) CO2 (BEAKER) (test 24 meq/L 22-29 code = 355) BLOOD UREA NITROGEN 116 mg/dL 7-21 H (BEAKER) (test code = 354) CREATININE (BEAKER) 7.75 mg/dL 0.57-1.25 H (test code = 358) GLUCOSE RANDOM 184 mg/dL 70-105 H (BEAKER) (test code = 652) CALCIUM (BEAKER) 7.7 mg/dL 8.4-10.2 L (test code = 697) EGFR (BEAKER) (test 7 mL/min/1.73 ESTIMAT ED GFR IS code = 1092) sq m NOT ACCURATE CREATININE CLEARANCE IN PREDICTING GLOMERULAR FILTRATION RATE . ESTIMATED GFR I S NOT APPLICABLE FOR DIALYSIS PATIEN TS. COMPREHENSIVE METABOLIC [id number] 07:30:00 Test Item Value Reference Range Interpretation Comments TOTAL PROTEIN 6.2 gm/dL 6.0-8.3 (BEAKER) (test code = 770) ALBUMIN (BEAKER) 2.1 g/dL 3.5-5.0 L (test code = 1145) ALKALINE PHOSPHATASE 118 U/L 40-150 (BEAKER) (test code = 346) BILIRUBIN TOTAL 0.6 mg/dL 0.2-1.2 (BEAKER) (test code = 377) SODIUM (BEAKER) (test 138 meq/L 136-145 code = 381) POTASSIUM (BEAKER) 3.9 meq/L 3.5-5.1 (test code = 379) CHLORIDE (BEAKER) 102 meq/L 98-107 (test code = 382) CO2 (BEAKER) (test 24 meq/L 22-29 code = 355) BLOOD UREA NITROGEN 124 mg/dL 7-21 H (BEAKER) (test code = 354) CREATININE (BEAKER) 7.74 mg/dL 0.57-1.25 H (test code = 358) GLUCOSE RANDOM 185 mg/dL 70-105 H (BEAKER) (test code = 652) CALCIUM (BEAKER) 7.7 mg/dL 8.4-10.2 L (test code = 697) AST (SGOT) (BEAKER) 26 U/L 5-34 (test code = 353) ALT (SGPT) (BEAKER) 13 U/L 6-55 (test code = 347) EGFR (BEAKER) (test 7 mL/min/1.73 ESTIMAT ED GFR IS code = 1092) sq m NOT ACCURATE CREATININE CLEARANCE IN PREDICTING GLOMERULAR FILTRATION RATE . ESTIMATED GFR I S NOT APPLICABLE FOR DIALYSIS PATIEN TS. [id number] 07:30:00 Test Item Value Reference Range Interpretation Comments PHOSPHORUS (BEAKER) (test code = 6.2 mg/dL 2.3-4.7 H 604) [id number] 07:30:00 Test Item Value Reference Range Interpretation Comments MAGNESIUM (BEAKER) (test code = 2.2 mg/dL 1.6-2.6 627) CALCIUM, [id number] 07:22:00 Test Item Value Reference Range Interpretation Comments CALCIUM IONIZED (BEAKER) (test 0.92 mmol/L 1.12-1.27 L code = 698) PH, BLOOD (BEAKER) (test code = 7.34 1810) IRON, TIBC, % SAT. (WITHOUT FERRITIN)[id number] 07:18:00 Test Item Value Reference Range Interpretation Comments IRON (BEAKER) (test code = 547) 50.0 ug/dL 40.0-160.0 TOTAL IRON BINDING CAPACITY 61 ug/dL 250-450 L (BEAKER) (test code = 769) IRON % SATURATION (2) (BEAKER) 82 % 20-55 H (test code = 2590) CBC W/PLT COUNT & AUTO [id number] 07:02:00 Test Item Value Reference Range Interpretation Comments WHITE BLOOD CELL COUNT (BEAKER) 13.4 K/ L 3.5-10.5 H (test code = 775) RED BLOOD CELL COUNT (BEAKER) 2.67 M/ L 4.63-6.08 L (test code = 761) HEMOGLOBIN (BEAKER) (test code = 8.1 GM/DL 13.7-17.5 L 410) HEMATOCRIT (BEAKER) (test code = 25.1 % 40.1-51.0 L 411) MEAN CORPUSCULAR VOLUME (BEAKER) 94.0 fL 79.0-92.2 H (test code = 753) MEAN CORPUSCULAR HEMOGLOBIN 30.3 pg 25.7-32.2 (BEAKER) (test code = 751) MEAN CORPUSCULAR HEMOGLOBIN CONC 32.3 GM/DL 32.3-36.5 (BEAKER) (test code = 752) RED CELL DISTRIBUTION WIDTH 14.8 % 11.6-14.4 H (BEAKER) (test code = 412) PLATELET COUNT (BEAKER) (test 422 K/CU MM 150-450 code = 756) MEAN PLATELET VOLUME (BEAKER) 8.2 fL 9.4-12.4 L (test code = 754) NUCLEATED RED BLOOD CELLS 0 /100 WBC 0-0 (BEAKER) (test code = 413) NEUTROPHILS RELATIVE PERCENT 86 % (BEAKER) (test code = 429) LYMPHOCYTES RELATIVE PERCENT 5 % (BEAKER) (test code = 430) MONOCYTES RELATIVE PERCENT 6 % (BEAKER) (test code = 431) EOSINOPHILS RELATIVE PERCENT 2 % (BEAKER) (test code = 432) BASOPHILS RELATIVE PERCENT 0 % (BEAKER) (test code = 437) NEUTROPHILS ABSOLUTE COUNT 11.47 K/ L 1.78-5.38 H (BEAKER) (test code = 670) LYMPHOCYTES ABSOLUTE COUNT 0.67 K/ L 1.32-3.57 L (BEAKER) (test code = 414) MONOCYTES ABSOLUTE COUNT (BEAKER) 0.85 K/ L 0.30-0.82 H (test code = 415) EOSINOPHILS ABSOLUTE COUNT 0.21 K/ L 0.04-0.54 (BEAKER) (test code = 416) BASOPHILS ABSOLUTE COUNT (BEAKER) 0.04 K/ L 0.01-0.08 (test code = 417) IMMATURE GRANULOCYTES-RELATIVE 1 % 0-1 PERCENT (BEAKER) (test code = 2801) RETICULOCYTE [id number] 06:57:00 Test Item Value Reference Range Interpretation Comments RETICULOCYTE COUNT PCT (BEAKER) (test 2.3 % 0.5-1.8 H code = 575) PROTHROMBIN [id number] 06:55:00 Test Item Value Reference Range Interpretation Comments PROTIME (BEAKER) (test code = 17.7 seconds 11.7-14.7 H 759) INR (BEAKER) (test code = 370) 1.5 <=5.9 RECOMMENDED COUMADIN/WARFARIN INR THERAPY RANGESSTANDARD DOSE: 2.0 - 3.0 Includes: PROPHYLAXIS forvenous thrombosis, systemic embolization; TREATMENT for venous thrombosis and/or pulmonary embolus.HIGH RISK: Target INR is 2.5-3.5 for patients with mechanical heart valves.POCT-GLUCOSE [id number] 21:28:00 Test Item Value Reference Range Interpretation Comments POC-GLUCOSE METER 280 mg/dL 70-110 H TESTED AT [facility] 6720 (BEAKER) (test code = [place] 1538) [id number] EOSINOPHIL SMEAR, [id number] 20:26:00 Test Item Value Reference Range Interpretation Comments EOSINOPHIL SMEAR, URINE (BEAKER) No EOS seen No EOS seen (test code = 1851) PROTEIN, RANDOM [id number] 19:26:00 Test Item Value Reference Range Interpretation Comments PROTEIN, URINE (BEAKER) (test code 243 mg/dL 0-14 H = 1569) CREATININE, RANDOM [id number] 19:11:00 Test Item Value Reference Range Interpretation Comments CREATININE URINE (BEAKER) (test 66.0 mg/dL code = 375) Reference Range: No NormalsURINALYSIS W/ [id number] 18:50:00 Test Item Value Reference Range Interpretation Comments COLOR (BEAKER) (test code = 470) Yellow CLARITY (BEAKER) (test code = 469) Hazy SPECIFIC GRAVITY UA (BEAKER) (test 1.010 1.001-1.035 code = 468) PH UA (BEAKER) (test code = 467) 6.0 5.0-8.0 PROTEIN UA (BEAKER) (test code = 200 mg/dL Negative A 464) GLUCOSE UA (BEAKER) (test code = 100 mg/dL Negative A 365) KETONES UA (BEAKER) (test code = Negative Negative 371) BILIRUBIN UA (BEAKER) (test code = Negative Negative 462) BLOOD UA (BEAKER) (test code = 461) Small Negative A NITRITE UA (BEAKER) (test code = Negative Negative 465) LEUKOCYTE ESTERASE UA (BEAKER) Small Negative A (test code = 466) UROBILINOGEN UA (BEAKER) (test code 0.2 mg/dL 0.2-1.0 = 463) RBC UA (BEAKER) (test code = 519) 0 /HPF WBC UA (BEAKER) (test code = 520) 8 /HPF MUCUS (BEAKER) (test code = 1574) Rare SQUAMOUS EPITHELIAL (BEAKER) (test 1 /HPF code = 516) SOURCE(BEAKER) (test code = 2795) POCT-GLUCOSE [id number] 17:47:00 Test Item Value Reference Range Interpretation Comments POC-GLUCOSE METER 265 mg/dL 70-110 H TESTED AT [facility] 6720 (BEAKER) (test code = CLAIRE May [facility] 1538) [id number] POCT-GLUCOSE [id number] 12:24:00 Test Item Value Reference Range Interpretation Comments POC-GLUCOSE METER 183 mg/dL 70-110 H TESTED AT [facility] 6720 (BEAKER) (test code = CLAIRE May [facility] 1538) [address] POCT-GLUCOSE [id number] 08:06:00 Test Item Value Reference Range Interpretation Comments POC-GLUCOSE METER 146 mg/dL 70-110 H TESTED AT [place] [id number] (BEAKER) (test code = [facility] Yadira [facility] 1538) [address] CALCIUM, [id number] 07:15:00 Test Item Value Reference Range Interpretation Comments CALCIUM IONIZED (BEAKER) (test 0.96 mmol/L 1.12-1.27 L code = 698) PH, BLOOD (BEAKER) (test code = 7.33 1810) COMPREHENSIVE METABOLIC [id number] 06:42:00 Test Item Value Reference Range Interpretation Comments TOTAL PROTEIN 6.0 gm/dL 6.0-8.3 (BEAKER) (test code = 770) ALBUMIN (BEAKER) 2.0 g/dL 3.5-5.0 L (test code = 1145) ALKALINE PHOSPHATASE 134 U/L 40-150 (BEAKER) (test code = 346) BILIRUBIN TOTAL 0.8 mg/dL 0.2-1.2 (BEAKER) (test code = 377) SODIUM (BEAKER) (test 137 meq/L 136-145 code = 381) POTASSIUM (BEAKER) 3.8 meq/L 3.5-5.1 (test code = 379) CHLORIDE (BEAKER) 101 meq/L 98-107 (test code = 382) CO2 (BEAKER) (test 21 meq/L 22-29 L code = 355) BLOOD UREA NITROGEN 117 mg/dL 7-21 H (BEAKER) (test code = 354) CREATININE (BEAKER) 6.85 mg/dL 0.57-1.25 H (test code = 358) GLUCOSE RANDOM 136 mg/dL 70-105 H (BEAKER) (test code = 652) CALCIUM (BEAKER) 7.6 mg/dL 8.4-10.2 L (test code = 697) AST (SGOT) (BEAKER) 26 U/L 5-34 (test code = 353) ALT (SGPT) (BEAKER) 17 U/L 6-55 (test code = 347) EGFR (BEAKER) (test 8 mL/min/1.73 ESTIMAT ED GFR IS code = 1092) sq m NOT ACCURATE CREATININE CLEARANCE IN PREDICTING GLOMERULAR FILTRATION RATE . ESTIMATED GFR I S NOT APPLICABLE FOR DIALYSIS PATIEN TS. BASIC METABOLIC [id number] 06:42:00 Test Item Value Reference Range Interpretation Comments SODIUM (BEAKER) 137 meq/L 136-145 (test code = 381) POTASSIUM (BEAKER) 3.8 meq/L 3.5-5.1 (test code = 379) CHLORIDE (BEAKER) 101 meq/L 98-107 (test code = 382) CO2 (BEAKER) (test 21 meq/L 22-29 L code = 355) BLOOD UREA NITROGEN 117 mg/dL 7-21 H (BEAKER) (test code = 354) CREATININE (BEAKER) 6.85 mg/dL 0.57-1.25 H (test code = 358) GLUCOSE RANDOM 136 mg/dL 70-105 H (BEAKER) (test code = 652) CALCIUM (BEAKER) 7.6 mg/dL 8.4-10.2 L (test code = 697) EGFR (BEAKER) (test 8 mL/min/1.73 ESTIMAT ED GFR IS code = 1092) sq m NOT ACCURATE CREATININE CLEARANCE IN PREDICTING GLOMERULAR FILTRATION RATE . ESTIMATED GFR I S NOT APPLICABLE FOR DIALYSIS PATIEN TS. [id number] 06:36:00 Test Item Value Reference Range Interpretation Comments PHOSPHORUS (BEAKER) (test code = 6.9 mg/dL 2.3-4.7 H 604) [id number] 06:36:00 Test Item Value Reference Range Interpretation Comments MAGNESIUM (BEAKER) (test code = 2.2 mg/dL 1.6-2.6 627) B-TYPE NATRIURETIC FACTOR (BNP)2018-06-04 06:15:00 Test Item Value Reference Range Interpretation Comments B-TYPE NATRIURETIC PEPTIDE 1332 pg/mL 0-100 H (BEAKER) (test code = 700) CBC W/PLT COUNT & AUTO [id number] 05:57:00 Test Item Value Reference Range Interpretation Comments WHITE BLOOD CELL COUNT (BEAKER) 13.3 K/ L 3.5-10.5 H (test code = 775) RED BLOOD CELL COUNT (BEAKER) 2.60 M/ L 4.63-6.08 L (test code = 761) HEMOGLOBIN (BEAKER) (test code = 8.0 GM/DL 13.7-17.5 L 410) HEMATOCRIT (BEAKER) (test code = 24.5 % 40.1-51.0 L 411) MEAN CORPUSCULAR VOLUME (BEAKER) 94.2 fL 79.0-92.2 H (test code = 753) MEAN CORPUSCULAR HEMOGLOBIN 30.8 pg 25.7-32.2 (BEAKER) (test code = 751) MEAN CORPUSCULAR HEMOGLOBIN CONC 32.7 GM/DL 32.3-36.5 (BEAKER) (test code = 752) RED CELL DISTRIBUTION WIDTH 14.7 % 11.6-14.4 H (BEAKER) (test code = 412) PLATELET COUNT (BEAKER) (test 396 K/CU MM 150-450 code = 756) MEAN PLATELET VOLUME (BEAKER) 8.3 fL 9.4-12.4 L (test code = 754) NUCLEATED RED BLOOD CELLS 0 /100 WBC 0-0 (BEAKER) (test code = 413) NEUTROPHILS RELATIVE PERCENT 86 % (BEAKER) (test code = 429) LYMPHOCYTES RELATIVE PERCENT 5 % (BEAKER) (test code = 430) MONOCYTES RELATIVE PERCENT 7 % (BEAKER) (test code = 431) EOSINOPHILS RELATIVE PERCENT 1 % (BEAKER) (test code = 432) BASOPHILS RELATIVE PERCENT 0 % (BEAKER) (test code = 437) NEUTROPHILS ABSOLUTE COUNT 11.44 K/ L 1.78-5.38 H (BEAKER) (test code = 670) LYMPHOCYTES ABSOLUTE COUNT 0.61 K/ L 1.32-3.57 L (BEAKER) (test code = 414) MONOCYTES ABSOLUTE COUNT (BEAKER) 0.86 K/ L 0.30-0.82 H (test code = 415) EOSINOPHILS ABSOLUTE COUNT 0.18 K/ L 0.04-0.54 (BEAKER) (test code = 416) BASOPHILS ABSOLUTE COUNT (BEAKER) 0.04 K/ L 0.01-0.08 (test code = 417) IMMATURE GRANULOCYTES-RELATIVE 1 % 0-1 PERCENT (BEAKER) (test code = 2801) RAD, CHEST, 1 VIEW, NON [id number] 21:49:00Reason for exam:->edemaShould this be performed at the bedside?->YesFINAL REPORT EXAM: Chest one view COMPARISON: June 01, 2018 CLINICAL HISTORY: Edema FINDINGS: There is interval insertion of a left internal jugular tunneled PICC with its tip overlying the cavoatrial junction. The cardiac size is enlarged with mild bilateral pulmonary edema. There is no evidence of pleural effusion or pneumothorax. The regional osseous structures are unchanged. Signed: Benjamin Delgado MDReport Verified Date/Time: 06/03/2018 21:49:54 Reading Location: [address] Consult Reading Room POCT-GLUCOSE [id number] 19:49:00 Test Item Value Reference Range Interpretation Comments POC-GLUCOSE METER 139 mg/dL 70-110 H TESTED AT [facility] 6720 ([facility]) (test code = [place] 1538) [id number] ANAEROBIC [id number] 17:34:00 Test Item Value Reference Range Interpretation Comments CULTURE (BEAKER) (test No anaerobes isolated code = 1095) ANAEROBIC [id number] 17:32:00 Test Item Value Reference Range Interpretation Comments CULTURE (AKER) (test No anaerobes isolated code = 1095) TISSUE [id number] 16:25:00Surgical Pathology Report Case: [id number] Authorizing Provider: Ayo Barron, Collected: 05/31/2018 1743 Ordering Location: [address] Received: 06/03/2018 0842 SERVICE Pathologist: Gaurang Young MD Specimens: A) -Duodenal, Bx B) - Biopsy, Gastric, Random Bx PART A DUODENAL BIOPSY:SMALL INTESTINAL MUCOSA WITH PRESERVED VILLOUS ARCHITECTURE.NO GRANULOMAS, ULCERATION, DYSPLASIA, OR INVASIVE CARCINOMA SEEN.PART B RANDOM GASTRIC BIOPSY:MILD CHRONIC INACTIVE GASTRITIS.WARTHIN STARRY STAIN FOR HELICOBACTER IS NEGATIVE. Signing Pathologist Direct Phone Line: [phone] signed by Gaurang Young MD on 06/03/2018 at 4:25 [id number], [id number]; stomachThe case was received in two parts each labeled with the patient's name, date of and accession number, which matched the information provided on the requisition slip.Part A received in formalinin a container labeled "duodenal" are four pieces of caro-yellow tissue measuring between 0.2 x 0.2 x0.2 cm and two 0.4 x 0.2 x 0.2 cm. The specimen is entirely submitted in cassette A1.Part B receivedin formalin in a container labeled "B. Biopsy, gastric" are four fragments of caro-white tissue measuring between 0.4 x 0.2 x 0.2 cm and two 0.3 x 0.3 x 0.3 cm. The specimen is entirely submitted in cassette B1. WC/ew PERFORMEDThe interpretation of this case included the use of immunohistochemistry or special stains. BLOCK B1- WARTHIN STARRYImmunohistochemistry technical testing was performed at [facility] where it was developed and its performance characteristics were determined. It has not been cleared or approved by the U.S. Food and Drug Administration. The FDA has determined that such clearance or approval is not necessary. The test is used for clinical purposes. It should not be regarded as investigational or for research. This laboratory is certified under the Clinical Laboratory Improvement Amendments of 1988 (CLIA-88) as qualified to perform high complexity clinical laboratory testing.POCT-GLUCOSE [id number] 12:45:00 Test Item Value Reference Range Interpretation Comments POC-GLUCOSE METER 141 mg/dL 70-110 H TESTED AT [facility] 67 ([facility]) (test code = [place] 1538) [address] PROTHROMBIN [id number] 11:12:00 Test Item Value Reference Range Interpretation Comments PROTIME (Newtron) (test code = 17.6 seconds 11.7-14.7 H 759) INR ([facility]) (test code = 370) 1.5 <=5.9 RECOMMENDED COUMADIN/WARFARIN INR THERAPY RANGESSTANDARD DOSE: 2.0 - 3.0 Includes: PROPHYLAXIS forvenous thrombosis, systemic embolization; TREATMENT for venous thrombosis and/or pulmonary embolus.HIGH RISK: Target INR is 2.5-3.5 for patients with mechanical heart valves.POCT-GLUCOSE [id number] 08:03:00 Test Item Value Reference Range Interpretation Comments POC-GLUCOSE METER 189 mg/dL 70-110 H TESTED AT [facility] 6720 (BEAKER) (test code = [place] 1538) [address] CBC W/PLT COUNT & AUTO [id number] 06:21:00 Test Item Value Reference Range Interpretation Comments WHITE BLOOD CELL COUNT (BEAKER) 16.1 K/ L 3.5-10.5 H (test code = 775) RED BLOOD CELL COUNT (BEAKER) 2.82 M/ L 4.63-6.08 L (test code = 761) HEMOGLOBIN (BEAKER) (test code = 8.6 GM/DL 13.7-17.5 L 410) HEMATOCRIT (BEAKER) (test code = 26.9 % 40.1-51.0 L 411) MEAN CORPUSCULAR VOLUME (BEAKER) 95.4 fL 79.0-92.2 H (test code = 753) MEAN CORPUSCULAR HEMOGLOBIN 30.5 pg 25.7-32.2 (BEAKER) (test code = 751) MEAN CORPUSCULAR HEMOGLOBIN CONC 32.0 GM/DL 32.3-36.5 L (BEAKER) (test code = 752) RED CELL DISTRIBUTION WIDTH 15.0 % 11.6-14.4 H (BEAKER) (test code = 412) PLATELET COUNT (BEAKER) (test 452 K/CU MM 150-450 H code = 756) MEAN PLATELET VOLUME (BEAKER) 8.3 fL 9.4-12.4 L (test code = 754) NUCLEATED RED BLOOD CELLS 0 /100 WBC 0-0 (BEAKER) (test code = 413) NEUTROPHILS RELATIVE PERCENT 85 % (BEAKER) (test code = 429) LYMPHOCYTES RELATIVE PERCENT 5 % (BEAKER) (test code = 430) MONOCYTES RELATIVE PERCENT 7 % (BEAKER) (test code = 431) EOSINOPHILS RELATIVE PERCENT 2 % (BEAKER) (test code = 432) BASOPHILS RELATIVE PERCENT 0 % (BEAKER) (test code = 437) NEUTROPHILS ABSOLUTE COUNT 13.76 K/ L 1.78-5.38 H (BEAKER) (test code = 670) LYMPHOCYTES ABSOLUTE COUNT 0.74 K/ L 1.32-3.57 L (BEAKER) (test code = 414) MONOCYTES ABSOLUTE COUNT (BEAKER) 1.06 K/ L 0.30-0.82 H (test code = 415) EOSINOPHILS ABSOLUTE COUNT 0.25 K/ L 0.04-0.54 (BEAKER) (test code = 416) BASOPHILS ABSOLUTE COUNT (BEAKER) 0.04 K/ L 0.01-0.08 (test code = 417) IMMATURE GRANULOCYTES-RELATIVE 2 % 0-1 H PERCENT (BEAKER) (test code = 2801) BASIC METABOLIC [id number] 05:59:00 Test Item Value Reference Range Interpretation Comments SODIUM (BEAKER) 137 meq/L 136-145 (test code = 381) POTASSIUM (BEAKER) 3.6 meq/L 3.5-5.1 (test code = 379) CHLORIDE (BEAKER) 99 meq/L 98-107 (test code = 382) CO2 (BEAKER) (test 22 meq/L 22-29 code = 355) BLOOD UREA NITROGEN 112 mg/dL 7-21 H (BEAKER) (test code = 354) CREATININE (BEAKER) 5.65 mg/dL 0.57-1.25 H (test code = 358) GLUCOSE RANDOM 209 mg/dL 70-105 H (BEAKER) (test code = 652) CALCIUM (BEAKER) 8.2 mg/dL 8.4-10.2 L (test code = 697) EGFR (BEAKER) (test 10 mL/min/1.73 ESTIMA JAMIE GFR IS code = 1092) sq m NOT ACCURATE CREATININE CLEARANCE IN PREDICTING GLOMERULAR FILTRATION RATE . ESTIMATED GFR I S NOT APPLICABLE FOR DIALYSIS PATIEN TS. POCT-GLUCOSE [id number] 20:53:00 Test Item Value Reference Range Interpretation Comments POC-GLUCOSE METER 291 mg/dL 70-110 [facility] ([facility]ER[facility] (test code = [place] 1538) [id number] POCT-GLUCOSE [id number] 18:12:00 Test Item Value Reference Range Interpretation Comments POC-GLUCOSE METER 291 mg/dL 70-110 H TESTED AT [facility] 6720 (BEAKER) (test code = [place] 1538) [id number] POCT-GLUCOSE [id number] 12:52:00 Test Item Value Reference Range Interpretation Comments POC-GLUCOSE METER 241 mg/dL 70-110 H TESTED AT [facility] 6720 (BEAKER) (test code = [place] 1538) [id number] POCT-GLUCOSE [id number] 08:11:00 Test Item Value Reference Range Interpretation Comments POC-GLUCOSE METER 182 mg/dL 70-110 H TESTED AT [facility] 6720 (BEAKER) (test code = [place] 1538) [address] CBC W/PLT COUNT & AUTO [id number] 07:40:00 Test Item Value Reference Range Interpretation Comments WHITE BLOOD CELL COUNT (BEAKER) 18.3 K/ L 3.5-10.5 H (test code = 775) RED BLOOD CELL COUNT (BEAKER) 2.67 M/ L 4.63-6.08 L (test code = 761) HEMOGLOBIN (BEAKER) (test code = 8.0 GM/DL 13.7-17.5 L 410) HEMATOCRIT (BEAKER) (test code = 25.2 % 40.1-51.0 L 411) MEAN CORPUSCULAR VOLUME (BEAKER) 94.4 fL 79.0-92.2 H (test code = 753) MEAN CORPUSCULAR HEMOGLOBIN 30.0 pg 25.7-32.2 (BEAKER) (test code = 751) MEAN CORPUSCULAR HEMOGLOBIN CONC 31.7 GM/DL 32.3-36.5 L (BEAKER) (test code = 752) RED CELL DISTRIBUTION WIDTH 15.2 % 11.6-14.4 H (BEAKER) (test code = 412) PLATELET COUNT (BEAKER) (test 409 K/CU MM 150-450 code = 756) MEAN PLATELET VOLUME (BEAKER) 8.3 fL 9.4-12.4 L (test code = 754) NUCLEATED RED BLOOD CELLS 0 /100 WBC 0-0 (BEAKER) (test code = 413) NEUTROPHILS RELATIVE PERCENT 91 % (BEAKER) (test code = 429) LYMPHOCYTES RELATIVE PERCENT 3 % (BEAKER) (test code = 430) MONOCYTES RELATIVE PERCENT 4 % (BEAKER) (test code = 431) EOSINOPHILS RELATIVE PERCENT 0 % (BEAKER) (test code = 432) BASOPHILS RELATIVE PERCENT 0 % (BEAKER) (test code = 437) NEUTROPHILS ABSOLUTE COUNT 16.59 K/ L 1.78-5.38 H (BEAKER) (test code = 670) LYMPHOCYTES ABSOLUTE COUNT 0.57 K/ L 1.32-3.57 L (BEAKER) (test code = 414) MONOCYTES ABSOLUTE COUNT (BEAKER) 0.78 K/ L 0.30-0.82 (test code = 415) EOSINOPHILS ABSOLUTE COUNT 0.04 K/ L 0.04-0.54 (BEAKER) (test code = 416) BASOPHILS ABSOLUTE COUNT (BEAKER) 0.03 K/ L 0.01-0.08 (test code = 417) IMMATURE GRANULOCYTES-RELATIVE 1 % 0-1 PERCENT (BEAKER) (test code = 2801) BASIC METABOLIC [id number] 05:52:00 Test Item Value Reference Range Interpretation Comments SODIUM (BEAKER) 138 meq/L 136-145 (test code = 381) POTASSIUM (BEAKER) 4.0 meq/L 3.5-5.1 (test code = 379) CHLORIDE (BEAKER) 100 meq/L 98-107 (test code = 382) CO2 (BEAKER) (test 18 meq/L 22-29 L code = 355) BLOOD UREA NITROGEN 108 mg/dL 7-21 H (BEAKER) (test code = 354) CREATININE (BEAKER) 5.19 mg/dL 0.57-1.25 H (test code = 358) GLUCOSE RANDOM 146 mg/dL 70-105 H (BEAKER) (test code = 652) CALCIUM (BEAKER) 8.6 mg/dL 8.4-10.2 (test code = 697) EGFR (BEAKER) (test 11 mL/min/1.73 ESTIMA JAMIE GFR IS code = 1092) sq m NOT ACCURATE CREATININE CLEARANCE IN PREDICTING GLOMERULAR FILTRATION RATE . ESTIMATED GFR I S NOT APPLICABLE FOR DIALYSIS PATIEN TS. POCT-GLUCOSE [id number] 22:43:00 Test Item Value Reference Range Interpretation Comments POC-GLUCOSE METER 155 mg/dL 70-110 H TEST[facility] (test code = [place]IRE May [facility] 1538) [address] POCT-GLUCOSE [id number] 18:29:00 Test Item Value Reference Range Interpretation Comments POC-GLUCOSE METER 150 mg/dL 70-110 H TEST[facility] (test code = CLAIRE May [facility] 1538) [address] CBC (HEMOGRAM ONLY)2018-06-01 12:12:00 Test Item Value Reference Range Interpretation Comments WHITE BLOOD CELL COUNT (BEAKER) 15.1 K/ L 3.5-10.5 H (test code = 775) RED BLOOD CELL COUNT (BEAKER) 2.20 M/ L 4.63-6.08 L (test code = 761) HEMOGLOBIN (BEAKER) (test code = 6.7 GM/DL 13.7-17.5 L 410) HEMATOCRIT (BEAKER) (test code = 20.8 % 40.1-51.0 L 411) MEAN CORPUSCULAR VOLUME (BEAKER) 94.5 fL 79.0-92.2 H (test code = 753) MEAN CORPUSCULAR HEMOGLOBIN 30.5 pg 25.7-32.2 (BEAKER) (test code = 751) MEAN CORPUSCULAR HEMOGLOBIN CONC 32.2 GM/DL 32.3-36.5 L (BEAKER) (test code = 752) RED CELL DISTRIBUTION WIDTH 14.6 % 11.6-14.4 H (BEAKER) (test code = 412) PLATELET COUNT (BEAKER) (test 420 K/CU MM 150-450 code = 756) MEAN PLATELET VOLUME (BEAKER) 8.1 fL 9.4-12.4 L (test code = 754) NUCLEATED RED BLOOD CELLS 0 /100 WBC 0-0 (BEAKER) (test code = 413) POCT-GLUCOSE [id number] 12:08:00 Test Item Value Reference Range Interpretation Comments POC-GLUCOSE METER 147 mg/dL 70-110 H TESTED AT [facility] 6720 (BEAKER) (test code = CLAIRE May [facility] 1538) [address] RAD, CHEST, 1 VIEW, NON [id number] 10:27:00Reason for exam:->Volume overloadShould this be performed at the bedside?->YesFINAL REPORT HISTORY : Volume overload. Comparison: 05/27/2018 Comment: Single portable view of the chest was obtained. The cardiac silhouette size is enlarged. There are findings of pulmonary venous congestion and likely interstitial edema. No pneumothorax or pleural effusion is seen. The patient is status post sternotomy. 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 Signed: Juanito Day MDReport Verified Date/Time: 06/01/2018 10:27:03 Reading Location: [address] Transitional Reading Room POCT-GLUCOSE [id number] 08:42:00 Test Item Value Reference Range Interpretation Comments POC-GLUCOSE METER 148 mg/dL 70-110 H TESTED AT [facility] 6720 (BEAKER) (test code = [place] 1538) [address] BASIC METABOLIC [id number] 07:41:00 Test Item Value Reference Range Interpretation Comments SODIUM (BEAKER) 138 meq/L 136-145 (test code = 381) POTASSIUM (BEAKER) 3.5 meq/L 3.5-5.1 (test code = 379) CHLORIDE (BEAKER) 98 meq/L 98-107 (test code = 382) CO2 (BEAKER) (test 24 meq/L 22-29 code = 355) BLOOD UREA NITROGEN 100 mg/dL 7-21 H (BEAKER) (test code = 354) CREATININE (BEAKER) 5.21 mg/dL 0.57-1.25 H (test code = 358) GLUCOSE RANDOM 114 mg/dL 70-105 H (BEAKER) (test code = 652) CALCIUM (BEAKER) 8.7 mg/dL 8.4-10.2 (test code = 697) EGFR (BEAKER) (test 11 mL/min/1.73 ESTIMA JAMIE GFR IS code = 1092) sq m NOT ACCURATE CREATININE CLEARANCE IN PREDICTING GLOMERULAR FILTRATION RATE . ESTIMATED GFR I S NOT APPLICABLE FOR DIALYSIS PATIEN TS. [id number] 07:17:00 Test Item Value Reference Range Interpretation Comments PHOSPHORUS (BEAKER) (test code = 5.7 mg/dL 2.3-4.7 H 604) [id number] 07:17:00 Test Item Value Reference Range Interpretation Comments MAGNESIUM (BEAKER) (test code = 2.0 mg/dL 1.6-2.6 627) CBC W/PLT COUNT & AUTO [id number] 06:59:00 Test Item Value Reference Range Interpretation Comments WHITE BLOOD CELL COUNT (BEAKER) 14.1 K/ L 3.5-10.5 H (test code = 775) RED BLOOD CELL COUNT (BEAKER) 2.17 M/ L 4.63-6.08 L (test code = 761) HEMOGLOBIN (BEAKER) (test code = 6.5 GM/DL 13.7-17.5 L 410) HEMATOCRIT (BEAKER) (test code = 20.7 % 40.1-51.0 L 411) MEAN CORPUSCULAR VOLUME (BEAKER) 95.4 fL 79.0-92.2 H (test code = 753) MEAN CORPUSCULAR HEMOGLOBIN 30.0 pg 25.7-32.2 (BEAKER) (test code = 751) MEAN CORPUSCULAR HEMOGLOBIN CONC 31.4 GM/DL 32.3-36.5 L (BEAKER) (test code = 752) RED CELL DISTRIBUTION WIDTH 14.6 % 11.6-14.4 H (BEAKER) (test code = 412) PLATELET COUNT (BEAKER) (test 432 K/CU MM 150-450 code = 756) MEAN PLATELET VOLUME (BEAKER) 8.4 fL 9.4-12.4 L (test code = 754) NUCLEATED RED BLOOD CELLS 0 /100 WBC 0-0 (BEAKER) (test code = 413) NEUTROPHILS RELATIVE PERCENT 86 % (BEAKER) (test code = 429) LYMPHOCYTES RELATIVE PERCENT 5 % (BEAKER) (test code = 430) MONOCYTES RELATIVE PERCENT 6 % (BEAKER) (test code = 431) EOSINOPHILS RELATIVE PERCENT 2 % (BEAKER) (test code = 432) BASOPHILS RELATIVE PERCENT 0 % (BEAKER) (test code = 437) NEUTROPHILS ABSOLUTE COUNT 12.11 K/ L 1.78-5.38 H (BEAKER) (test code = 670) LYMPHOCYTES ABSOLUTE COUNT 0.68 K/ L 1.32-3.57 L (BEAKER) (test code = 414) MONOCYTES ABSOLUTE COUNT (BEAKER) 0.90 K/ L 0.30-0.82 H (test code = 415) EOSINOPHILS ABSOLUTE COUNT 0.22 K/ L 0.04-0.54 (BEAKER) (test code = 416) BASOPHILS ABSOLUTE COUNT (BEAKER) 0.03 K/ L 0.01-0.08 (test code = 417) IMMATURE GRANULOCYTES-RELATIVE 1 % 0-1 PERCENT (BEAKER) (test code = 9951) CALCIUM, [id number] 06:17:00 Test Item Value Reference Range Interpretation Comments CALCIUM IONIZED (BEAKER) (test 1.01 mmol/L 1.12-1.27 L code = 698) PH, BLOOD (BEAKER) (test code = 7.38 1810) POCT-GLUCOSE [id number] 22:54:00 Test Item Value Reference Range Interpretation Comments POC-GLUCOSE METER 161 mg/dL 70-110 H TESTED AT [place] [address] [facility] (test code = [facility] 1538) [address] SURGICALLY OBTAINED CULTURE + GRAM [id number] 12:51:00 Test Item Value Reference Interpretation Comments Range CULTURE (BEAKER) STAPHYLOCOCCUS A 3+ Staphy lococcus (test code = 1095) AUREUS aureus Clindamycin (test S code = 10) Erythromycin (test S code = 4) Linezolid (test code S = 40) Nitrofurantoin (test S code = 23) Oxacillin (test code S = 14) Rifampin (test code = S 43) Tetracycline (test S code = 2) Trimethoprim + S Sulfamethoxazole (test code = 47) Vancomycin (test code S = 13) GRAM STAIN RESULT 2+ White blood (BEAKER) (test code = cells seen 1123) GRAM STAIN RESULT <1+ gram negative (BEAKER) (test code = rods 615733) GRAM STAIN RESULT <1+ gram positive (BEAKER) (test code = cocci in pairs 858476) POCT-GLUCOSE [id number] 12:26:00 Test Item Value Reference Range Interpretation Comments POC-GLUCOSE METER 90 mg/dL 70-110 TESTED AT [place] [address] (BEAKER) (test code = [facility] [address] 1538) POCT-GLUCOSE [id number] 08:17:00 Test Item Value Reference Range Interpretation Comments POC-GLUCOSE METER 111 mg/dL 70-110 H TESTED AT [place] [address] (BEAKER) (test code = [facility] 1538) [address] CALCIUM, [id number] 06:47:00 Test Item Value Reference Range Interpretation Comments CALCIUM IONIZED (BEAKER) (test 0.94 mmol/L 1.12-1.27 L code = 698) PH, BLOOD (BEAKER) (test code = 7.42 1810) COMPREHENSIVE METABOLIC [id number] 06:35:00 Test Item Value Reference Range Interpretation Comments TOTAL PROTEIN 6.7 gm/dL 6.0-8.3 (BEAKER) (test code = 770) ALBUMIN (BEAKER) 2.4 g/dL 3.5-5.0 L (test code = 1145) ALKALINE PHOSPHATASE 145 U/L 40-150 (BEAKER) (test code = 346) BILIRUBIN TOTAL 0.4 mg/dL 0.2-1.2 (BEAKER) (test code = 377) SODIUM (BEAKER) (test 137 meq/L 136-145 code = 381) POTASSIUM (BEAKER) 3.4 meq/L 3.5-5.1 L (test code = 379) CHLORIDE (BEAKER) 99 meq/L 98-107 (test code = 382) CO2 (BEAKER) (test 26 meq/L 22-29 code = 355) BLOOD UREA NITROGEN 98 mg/dL 7-21 H (BEAKER) (test code = 354) CREATININE (BEAKER) 4.95 mg/dL 0.57-1.25 H (test code = 358) GLUCOSE RANDOM 110 mg/dL 70-105 H (BEAKER) (test code = 652) CALCIUM (BEAKER) 8.6 mg/dL 8.4-10.2 (test code = 697) AST (SGOT) (BEAKER) 35 U/L 5-34 H (test code = 353) ALT (SGPT) (BEAKER) 15 U/L 6-55 (test code = 347) EGFR (BEAKER) (test 12 mL/min/1.73 ESTIMA JAMIE GFR IS code = 1092) sq m NOT ACCURATE CREATININE CLEARANCE IN PREDICTING GLOMERULAR FILTRATION RATE . ESTIMATED GFR I S NOT APPLICABLE FOR DIALYSIS PATIEN TS. BASIC METABOLIC [id number] 06:35:00 Test Item Value Reference Range Interpretation Comments SODIUM (BEAKER) 137 meq/L 136-145 (test code = 381) POTASSIUM (BEAKER) 3.4 meq/L 3.5-5.1 L (test code = 379) CHLORIDE (BEAKER) 99 meq/L 98-107 (test code = 382) CO2 (BEAKER) (test 26 meq/L 22-29 code = 355) BLOOD UREA NITROGEN 98 mg/dL 7-21 H (BEAKER) (test code = 354) CREATININE (BEAKER) 4.95 mg/dL 0.57-1.25 H (test code = 358) GLUCOSE RANDOM 110 mg/dL 70-105 H (BEAKER) (test code = 652) CALCIUM (BEAKER) 8.6 mg/dL 8.4-10.2 (test code = 697) EGFR (BEAKER) (test 12 mL/min/1.73 ESTIMA JAMIE GFR IS code = 1092) sq m NOT ACCURATE CREATININE CLEARANCE IN PREDICTING GLOMERULAR FILTRATION RATE . ESTIMATED GFR I S NOT APPLICABLE FOR DIALYSIS PATIEN TS. [id number] 06:31:00 Test Item Value Reference Range Interpretation Comments PHOSPHORUS (BEAKER) (test code = 5.2 mg/dL 2.3-4.7 H 604) [id number] 06:31:00 Test Item Value Reference Range Interpretation Comments MAGNESIUM (BEAKER) (test code = 1.6 mg/dL 1.6-2.6 627) CBC W/PLT COUNT & AUTO [id number] 05:58:00 Test Item Value Reference Range Interpretation Comments WHITE BLOOD CELL COUNT (BEAKER) 14.2 K/ L 3.5-10.5 H (test code = 775) RED BLOOD CELL COUNT (BEAKER) 2.28 M/ L 4.63-6.08 L (test code = 761) HEMOGLOBIN (BEAKER) (test code = 7.1 GM/DL 13.7-17.5 L 410) HEMATOCRIT (BEAKER) (test code = 21.6 % 40.1-51.0 L 411) MEAN CORPUSCULAR VOLUME (BEAKER) 94.7 fL 79.0-92.2 H (test code = 753) MEAN CORPUSCULAR HEMOGLOBIN 31.1 pg 25.7-32.2 (BEAKER) (test code = 751) MEAN CORPUSCULAR HEMOGLOBIN CONC 32.9 GM/DL 32.3-36.5 (BEAKER) (test code = 752) RED CELL DISTRIBUTION WIDTH 14.7 % 11.6-14.4 H (BEAKER) (test code = 412) PLATELET COUNT (BEAKER) (test 456 K/CU MM 150-450 H code = 756) MEAN PLATELET VOLUME (BEAKER) 8.3 fL 9.4-12.4 L (test code = 754) NUCLEATED RED BLOOD CELLS 0 /100 WBC 0-0 (BEAKER) (test code = 413) NEUTROPHILS RELATIVE PERCENT 86 % (BEAKER) (test code = 429) LYMPHOCYTES RELATIVE PERCENT 4 % (BEAKER) (test code = 430) MONOCYTES RELATIVE PERCENT 7 % (BEAKER) (test code = 431) EOSINOPHILS RELATIVE PERCENT 2 % (BEAKER) (test code = 432) BASOPHILS RELATIVE PERCENT 0 % (BEAKER) (test code = 437) NEUTROPHILS ABSOLUTE COUNT 12.18 K/ L 1.78-5.38 H (BEAKER) (test code = 670) LYMPHOCYTES ABSOLUTE COUNT 0.63 K/ L 1.32-3.57 L (BEAKER) (test code = 414) MONOCYTES ABSOLUTE COUNT (BEAKER) 0.97 K/ L 0.30-0.82 H (test code = 415) EOSINOPHILS ABSOLUTE COUNT 0.21 K/ L 0.04-0.54 (BEAKER) (test code = 416) BASOPHILS ABSOLUTE COUNT (BEAKER) 0.03 K/ L 0.01-0.08 (test code = 417) IMMATURE GRANULOCYTES-RELATIVE 1 % 0-1 PERCENT (BEAKER) (test code = 2801) POCT-GLUCOSE [id number] 23:14:00 Test Item Value Reference Range Interpretation Comments POC-GLUCOSE METER 170 mg/dL 70-110 H TESTED AT [place] [address] ([facility]) (test code = [facility] 1538) [address] POCT-GLUCOSE [id number] 21:38:00 Test Item Value Reference Range Interpretation Comments POC-GLUCOSE METER 64 mg/dL 70-110 L TESTED AT [place] [address] ([facility]) (test code = [facility] [address] 1538) POCT-GLUCOSE [id number] 18:28:00 Test Item Value Reference Range Interpretation Comments POC-GLUCOSE METER 129 mg/dL 70-110 H TESTED AT [place] [address] ([facility]) (test code = [facility] 1538) [address] BODY FLUID [id number] 13:35:00 Test Item Value Reference Range Interpretation Comments CRYSTALS, BODY FLUID No crystals seen. ([facility] (test code = 2165) [id number] Gallo Brooks MD ([facility]) (test code = (electronic signature) 3863) POCT-GLUCOSE [id number] 13:11:00 Test Item Value Reference Range Interpretation Comments POC-GLUCOSE METER 324 mg/dL 70-110 H TESTED AT [facility] 6720 (BEAKER) (test code = [place] 1538) [address] BODY FLUID CULTURE + GRAM [id number] 10:34:00 Test Item Value Reference Interpretation Comments Range CULTURE (BEAKER) STAPHYLOCOCCUS A 2+ Staphy lococcus (test code = 1095) AUREUS aureus Clindamycin (test S code = 10) Erythromycin (test S code = 4) Linezolid (test code S = 40) Nitrofurantoin (test S code = 23) Oxacillin (test code S = 14) Rifampin (test code = S 43) Tetracycline (test S code = 2) Trimethoprim + S Sulfamethoxazole (test code = 47) Vancomycin (test code S = 13) GRAM STAIN RESULT <1+ WBCs (BEAKER) (test code = 1123) GRAM STAIN RESULT No organisms seen (AKER) (test code = 221271) BASIC METABOLIC [id number] 08:32:00 Test Item Value Reference Range Interpretation Comments SODIUM (BEAKER) 140 meq/L 136-145 (test code = 381) POTASSIUM (BEAKER) 3.4 meq/L 3.5-5.1 L (test code = 379) CHLORIDE (BEAKER) 102 meq/L 98-107 (test code = 382) CO2 (BEAKER) (test 25 meq/L 22-29 code = 355) BLOOD UREA NITROGEN 90 mg/dL 7-21 H (BEAKER) (test code = 354) CREATININE (BEAKER) 4.35 mg/dL 0.57-1.25 H (test code = 358) GLUCOSE RANDOM 120 mg/dL 70-105 H (BEAKER) (test code = 652) CALCIUM (BEAKER) 8.8 mg/dL 8.4-10.2 (test code = 697) EGFR (BEAKER) (test 14 mL/min/1.73 ESTIMA JAMIE GFR IS code = 1092) sq m NOT ACCURATE CREATININE CLEARANCE IN PREDICTING GLOMERULAR FILTRATION RATE . ESTIMATED GFR I S NOT APPLICABLE FOR DIALYSIS PATIEN TS. COMPREHENSIVE METABOLIC [id number] 08:32:00 Test Item Value Reference Range Interpretation Comments TOTAL PROTEIN 7.0 gm/dL 6.0-8.3 (BEAKER) (test code = 770) ALBUMIN (BEAKER) 2.5 g/dL 3.5-5.0 L (test code = 1145) ALKALINE PHOSPHATASE 147 U/L 40-150 (BEAKER) (test code = 346) BILIRUBIN TOTAL 0.5 mg/dL 0.2-1.2 (BEAKER) (test code = 377) SODIUM (BEAKER) (test 140 meq/L 136-145 code = 381) POTASSIUM (BEAKER) 3.4 meq/L 3.5-5.1 L (test code = 379) CHLORIDE (BEAKER) 102 meq/L 98-107 (test code = 382) CO2 (BEAKER) (test 25 meq/L 22-29 code = 355) BLOOD UREA NITROGEN 90 mg/dL 7-21 H (BEAKER) (test code = 354) CREATININE (BEAKER) 4.35 mg/dL 0.57-1.25 H (test code = 358) GLUCOSE RANDOM 120 mg/dL 70-105 H (BEAKER) (test code = 652) CALCIUM (BEAKER) 8.8 mg/dL 8.4-10.2 (test code = 697) AST (SGOT) (BEAKER) 27 U/L 5-34 (test code = 353) ALT (SGPT) (BEAKER) 14 U/L 6-55 (test code = 347) EGFR (BEAKER) (test 14 mL/min/1.73 ESTIMA JAMIE GFR IS code = 1092) sq m NOT ACCURATE CREATININE CLEARANCE IN PREDICTING GLOMERULAR FILTRATION RATE . ESTIMATED GFR I S NOT APPLICABLE FOR DIALYSIS PATIEN TS. POCT-GLUCOSE [id number] 08:02:00 Test Item Value Reference Range Interpretation Comments POC-GLUCOSE METER 150 mg/dL 70-110 H TESTED AT [facility] 6720 (BEAKER) (test code = [place] 1539) [address] [id number] 07:27:00 Test Item Value Reference Range Interpretation Comments PHOSPHORUS (BEAKER) (test code = 5.0 mg/dL 2.3-4.7 H 604) [id number] 07:27:00 Test Item Value Reference Range Interpretation Comments MAGNESIUM (BEAKER) (test code = 1.6 mg/dL 1.6-2.6 627) CBC W/PLT COUNT & AUTO [id number] 07:01:00 Test Item Value Reference Range Interpretation Comments WHITE BLOOD CELL COUNT (BEAKER) 16.5 K/ L 3.5-10.5 H (test code = 775) RED BLOOD CELL COUNT (BEAKER) 2.41 M/ L 4.63-6.08 L (test code = 761) HEMOGLOBIN (BEAKER) (test code = 7.6 GM/DL 13.7-17.5 L 410) HEMATOCRIT (BEAKER) (test code = 23.1 % 40.1-51.0 L 411) MEAN CORPUSCULAR VOLUME (BEAKER) 95.9 fL 79.0-92.2 H (test code = 753) MEAN CORPUSCULAR HEMOGLOBIN 31.5 pg 25.7-32.2 (BEAKER) (test code = 751) MEAN CORPUSCULAR HEMOGLOBIN CONC 32.9 GM/DL 32.3-36.5 (BEAKER) (test code = 752) RED CELL DISTRIBUTION WIDTH 15.4 % 11.6-14.4 H (BEAKER) (test code = 412) PLATELET COUNT (BEAKER) (test 510 K/CU MM 150-450 H code = 756) MEAN PLATELET VOLUME (BEAKER) 8.4 fL 9.4-12.4 L (test code = 754) NUCLEATED RED BLOOD CELLS 0 /100 WBC 0-0 (BEAKER) (test code = 413) NEUTROPHILS RELATIVE PERCENT 89 % (BEAKER) (test code = 429) LYMPHOCYTES RELATIVE PERCENT 3 % (BEAKER) (test code = 430) MONOCYTES RELATIVE PERCENT 8 % (BEAKER) (test code = 431) EOSINOPHILS RELATIVE PERCENT 0 % (BEAKER) (test code = 432) BASOPHILS RELATIVE PERCENT 0 % (BEAKER) (test code = 437) NEUTROPHILS ABSOLUTE COUNT 14.60 K/ L 1.78-5.38 H (BEAKER) (test code = 670) LYMPHOCYTES ABSOLUTE COUNT 0.47 K/ L 1.32-3.57 L (BEAKER) (test code = 414) MONOCYTES ABSOLUTE COUNT (BEAKER) 1.24 K/ L 0.30-0.82 H (test code = 415) EOSINOPHILS ABSOLUTE COUNT 0.01 K/ L 0.04-0.54 L (BEAKER) (test code = 416) BASOPHILS ABSOLUTE COUNT (BEAKER) 0.02 K/ L 0.01-0.08 (test code = 417) IMMATURE GRANULOCYTES-RELATIVE 1 % 0-1 PERCENT (BEAKER) (test code = 2801) CBC W/PLT COUNT & AUTO [id number] 07:00:00 Test Item Value Reference Range Interpretation Comments WHITE BLOOD CELL COUNT (BEAKER) 17.0 K/ L 3.5-10.5 H (test code = 775) RED BLOOD CELL COUNT (BEAKER) 2.38 M/ L 4.63-6.08 L (test code = 761) HEMOGLOBIN (BEAKER) (test code = 7.4 GM/DL 13.7-17.5 L 410) HEMATOCRIT (BEAKER) (test code = 23.4 % 40.1-51.0 L 411) MEAN CORPUSCULAR VOLUME (BEAKER) 98.3 fL 79.0-92.2 H (test code = 753) MEAN CORPUSCULAR HEMOGLOBIN 31.1 pg 25.7-32.2 (BEAKER) (test code = 751) MEAN CORPUSCULAR HEMOGLOBIN CONC 31.6 GM/DL 32.3-36.5 L (BEAKER) (test code = 752) RED CELL DISTRIBUTION WIDTH 15.5 % 11.6-14.4 H (BEAKER) (test code = 412) PLATELET COUNT (BEAKER) (test 501 K/CU MM 150-450 H code = 756) MEAN PLATELET VOLUME (BEAKER) 8.2 fL 9.4-12.4 L (test code = 754) NUCLEATED RED BLOOD CELLS 0 /100 WBC 0-0 (BEAKER) (test code = 413) NEUTROPHILS RELATIVE PERCENT 88 % (BEAKER) (test code = 429) LYMPHOCYTES RELATIVE PERCENT 3 % (BEAKER) (test code = 430) MONOCYTES RELATIVE PERCENT 8 % (BEAKER) (test code = 431) EOSINOPHILS RELATIVE PERCENT 0 % (BEAKER) (test code = 432) BASOPHILS RELATIVE PERCENT 0 % (BEAKER) (test code = 437) NEUTROPHILS ABSOLUTE COUNT 14.97 K/ L 1.78-5.38 H (BEAKER) (test code = 670) LYMPHOCYTES ABSOLUTE COUNT 0.50 K/ L 1.32-3.57 L (BEAKER) (test code = 414) MONOCYTES ABSOLUTE COUNT (BEAKER) 1.34 K/ L 0.30-0.82 H (test code = 415) EOSINOPHILS ABSOLUTE COUNT 0.00 K/ L 0.04-0.54 L (BEAKER) (test code = 416) BASOPHILS ABSOLUTE COUNT (BEAKER) 0.03 K/ L 0.01-0.08 (test code = 417) IMMATURE GRANULOCYTES-RELATIVE 1 % 0-1 PERCENT (BEAKER) (test code = 2801) CALCIUM, [id number] 06:56:00 Test Item Value Reference Range Interpretation Comments CALCIUM IONIZED (BEAKER) (test 1.02 mmol/L 1.12-1.27 L code = 698) PH, BLOOD ([facility]) (test code = 7.39 1810) POCT-GLUCOSE [id number] 21:51:00 Test Item Value Reference Range Interpretation Comments POC-GLUCOSE METER 147 mg/dL 70-110 H TESTED AT [place] [address] ([facility]) (test code = [facility] 1538) [address] POCT-GLUCOSE [id number] 18:30:00 Test Item Value Reference Range Interpretation Comments POC-GLUCOSE METER 173 mg/dL 70-110 H TESTED AT [place] [address] ([facility]) (test code = [facility] 1538) [address] POCT-GLUCOSE [id number] 12:10:00 Test Item Value Reference Range Interpretation Comments POC-GLUCOSE METER 223 mg/dL 70-110 H TESTED AT [place] [address] ([facility]) (test code = [facility] 1538) [address] POCT-GLUCOSE [id number] 08:44:00 Test Item Value Reference Range Interpretation Comments POC-GLUCOSE METER 272 mg/dL 70-110 H TESTED AT [place] [address] ([facility]) (test code = [facility] 1538) [address] CALCIUM, [id number] 06:23:00 Test Item Value Reference Range Interpretation Comments CALCIUM IONIZED (BEAKER) (test 0.97 mmol/L 1.12-1.27 L code = 698) PH, BLOOD ([facility]) (test code = 7.46 1810) COMPREHENSIVE METABOLIC [id number] 05:56:00 Test Item Value Reference Range Interpretation Comments TOTAL PROTEIN 7.1 gm/dL 6.0-8.3 (BEAKER) (test code = 770) ALBUMIN (BEAKER) 2.5 g/dL 3.5-5.0 L (test code = 1145) ALKALINE PHOSPHATASE 173 U/L 40-150 H (BEAKER) (test code = 346) BILIRUBIN TOTAL 0.5 mg/dL 0.2-1.2 (BEAKER) (test code = 377) SODIUM (BEAKER) (test 137 meq/L 136-145 code = 381) POTASSIUM (BEAKER) 3.6 meq/L 3.5-5.1 (test code = 379) CHLORIDE (BEAKER) 99 meq/L 98-107 (test code = 382) CO2 (BEAKER) (test 26 meq/L 22-29 code = 355) BLOOD UREA NITROGEN 99 mg/dL 7-21 H (BEAKER) (test code = 354) CREATININE (BEAKER) 4.61 mg/dL 0.57-1.25 H (test code = 358) GLUCOSE RANDOM 244 mg/dL 70-105 H (BEAKER) (test code = 652) CALCIUM (BEAKER) 8.6 mg/dL 8.4-10.2 (test code = 697) AST (SGOT) (BEAKER) 21 U/L 5-34 (test code = 353) ALT (SGPT) (BEAKER) 18 U/L 6-55 (test code = 347) EGFR (BEAKER) (test 13 mL/min/1.73 ESTIMA JAMIE GFR IS code = 1092) sq m NOT ACCURATE CREATININE CLEARANCE IN PREDICTING GLOMERULAR FILTRATION RATE . ESTIMATED GFR I S NOT APPLICABLE FOR DIALYSIS PATIEN TS. BASIC METABOLIC [id number] 05:56:00 Test Item Value Reference Range Interpretation Comments SODIUM (BEAKER) 137 meq/L 136-145 (test code = 381) POTASSIUM (BEAKER) 3.6 meq/L 3.5-5.1 (test code = 379) CHLORIDE (BEAKER) 99 meq/L 98-107 (test code = 382) CO2 (BEAKER) (test 26 meq/L 22-29 code = 355) BLOOD UREA NITROGEN 99 mg/dL 7-21 H (BEAKER) (test code = 354) CREATININE (BEAKER) 4.61 mg/dL 0.57-1.25 H (test code = 358) GLUCOSE RANDOM 244 mg/dL 70-105 H (BEAKER) (test code = 652) CALCIUM (BEAKER) 8.6 mg/dL 8.4-10.2 (test code = 697) EGFR (BEAKER) (test 13 mL/min/1.73 ESTIMA JAMIE GFR IS code = 1092) sq m NOT ACCURATE CREATININE CLEARANCE IN PREDICTING GLOMERULAR FILTRATION RATE . ESTIMATED GFR I S NOT APPLICABLE FOR DIALYSIS PATIEN TS. [id number] 05:41:00 Test Item Value Reference Range Interpretation Comments PHOSPHORUS (BEAKER) (test code = 5.3 mg/dL 2.3-4.7 H 604) [id number] 05:41:00 Test Item Value Reference Range Interpretation Comments MAGNESIUM (BEAKER) (test code = 1.7 mg/dL 1.6-2.6 627) CBC W/PLT COUNT & AUTO [id number] 05:16:00 Test Item Value Reference Range Interpretation Comments WHITE BLOOD CELL COUNT (BEAKER) 11.8 K/ L 3.5-10.5 H (test code = 775) RED BLOOD CELL COUNT (BEAKER) 2.54 M/ L 4.63-6.08 L (test code = 761) HEMOGLOBIN (BEAKER) (test code = 7.8 GM/DL 13.7-17.5 L 410) HEMATOCRIT (BEAKER) (test code = 23.8 % 40.1-51.0 L 411) MEAN CORPUSCULAR VOLUME (BEAKER) 93.7 fL 79.0-92.2 H (test code = 753) MEAN CORPUSCULAR HEMOGLOBIN 30.7 pg 25.7-32.2 (BEAKER) (test code = 751) MEAN CORPUSCULAR HEMOGLOBIN CONC 32.8 GM/DL 32.3-36.5 (BEAKER) (test code = 752) RED CELL DISTRIBUTION WIDTH 15.9 % 11.6-14.4 H (BEAKER) (test code = 412) PLATELET COUNT (BEAKER) (test 456 K/CU MM 150-450 H code = 756) MEAN PLATELET VOLUME (BEAKER) 8.1 fL 9.4-12.4 L (test code = 754) NUCLEATED RED BLOOD CELLS 0 /100 WBC 0-0 (BEAKER) (test code = 413) NEUTROPHILS RELATIVE PERCENT 83 % (BEAKER) (test code = 429) LYMPHOCYTES RELATIVE PERCENT 5 % (BEAKER) (test code = 430) MONOCYTES RELATIVE PERCENT 10 % (BEAKER) (test code = 431) EOSINOPHILS RELATIVE PERCENT 1 % (BEAKER) (test code = 432) BASOPHILS RELATIVE PERCENT 0 % (BEAKER) (test code = 437) NEUTROPHILS ABSOLUTE COUNT 9.77 K/ L 1.78-5.38 H (BEAKER) (test code = 670) LYMPHOCYTES ABSOLUTE COUNT 0.57 K/ L 1.32-3.57 L (BEAKER) (test code = 414) MONOCYTES ABSOLUTE COUNT (BEAKER) 1.19 K/ L 0.30-0.82 H (test code = 415) EOSINOPHILS ABSOLUTE COUNT 0.12 K/ L 0.04-0.54 (BEAKER) (test code = 416) BASOPHILS ABSOLUTE COUNT (BEAKER) 0.03 K/ L 0.01-0.08 (test code = 417) IMMATURE GRANULOCYTES-RELATIVE 1 % 0-1 PERCENT (BEAKER) (test code = 2801) POCT-GLUCOSE [id number] 05:02:00 Test Item Value Reference Range Interpretation Comments POC-GLUCOSE METER 272 mg/dL 70-110 H TESTED AT [facility] 6720 (BEAKER) (test code = [place] [address]) [id number] POCT-GLUCOSE [id number] 23:43:00 Test Item Value Reference Range Interpretation Comments POC-GLUCOSE METER 369 mg/dL 70-110 H Notified R Ruma JUNE/TESTED (BEAKER) (test code = AT [facility] [address] [place] [id number]) [facility] 7703 0 BODY FLUID CELL COUNT WITH [id number] 20:02:00 Test Item Value Reference Range Interpretation Comments APPEARANCE FLUID (BEAKER) Bloody Clear A (test code = 510) COLOR FLUID (BEAKER) (test [place] Colorless, Straw A code = 511) RBC FLUID (BEAKER) (test code 309917 /cu mm <=1 H = 513) ADJUSTED WBC FLUID (BEAKER) 710893 /cu mm <=5 H (test code = 1691) LINING CELLS (BEAKER) (test 0 /cu mm <=1 code = 1590) NEUTROPHILS FLUID (BEAKER) 92 % (test code = 1656) LYMPHS FLUID (BEAKER) (test 3 % code = 488) MONO/MACROPHAGE FLUID (BEAKER) 5 % (test code = 489) EOSINOPHILS FLUID (BEAKER) 0 % (test code = 491) BASO FLUID (BEAKER) (test code 0 % = 492) CONTAINER BODY FLUID (BEAKER) EDTA Tube (test code = 2873) BACTERIA SEEN ON STAINED SMEARPOCT-GLUCOSE [id number] 18:43:00 Test Item Value Reference Range Interpretation Comments POC-GLUCOSE METER 158 mg/dL 70-110 H TESTED AT [facility] (BEAKER) (test code = [facility] 1538) [address] C-REACTIVE [id number] 15:24:00 Test Item Value Reference Range Interpretation Comments C-REACTIVE PROTEIN (BEAKER) (test 26.79 mg/dL 0.00-0.50 H code = 676) POCT-GLUCOSE [id number] 13:25:00 Test Item Value Reference Range Interpretation Comments POC-GLUCOSE METER 143 mg/dL 70-110 H TESTED AT [place] [address] (BEAKER) (test code = [facility] 1538) [address] PERIPHERAL BLOOD SMEAR - PATHOLOGIST [id number] 11:30:00 Test Item Value Reference Range Interpretation Comments RBC MORPHOLOGY Anisocytosis (BEAKER) (test code = 2846) RBC MORPHOLOGY Poikilocytosis (BEAKER) (test code = 95121) RBC MORPHOLOGY Polychromasia (BEAKER) (test code = 97329) RBC MORPHOLOGY Macro Ovalocytosis (BEAKER) (test code = 47419) WBC MORPHOLOGY Toxic Granulation (BEAKER) (test code = 2847) WBC MORPHOLOGY Neutrophilic (BEAKER) (test code = Vacuolization 595811) WBC MORPHOLOGY Left Shift (BEAKER) (test code = 171421) PLT MORPHOLOGY Large Platelets (BEAKER) (test code = 2848) PLT MORPHOLOGY Giant Platelets (BEAKER) (test code = 329104) PLT MORPHOLOGY No Clumping (BEAKER) (test code = 835515) PLT MORPHOLOGY No Satellitosis (BEAKER) (test code = 919226) PERIPHERAL SMR REVIEW Mild leukocytosis with (BEAKER) (test code = absolute neutrophilia 2640) with a left shift including rare myelocytes and mild toxic changes. No circulating blasts. No increase in schistocytes. Cell counts confirmed. [id number] Shefali Delaney MD [facility] (test code = (electronic signature) 4560) POCT-GLUCOSE [id number] 09:52:00 Test Item Value Reference Range Interpretation Comments POC-GLUCOSE METER 80 mg/dL 70-110 TESTED AT [facility] ([facility] (test code = [place] [address] 0861) HEMOGLOBIN [id number] 08:08:00 Test Item Value Reference Range Interpretation Comments HEMOGLOBIN A1C (BEAKER) (test code = 6.0 % 4.3-6.1 368) COMPREHENSIVE METABOLIC [id number] 06:25:00 Test Item Value Reference Range Interpretation Comments TOTAL PROTEIN 7.3 gm/dL 6.0-8.3 (BEAKER) (test code = 770) ALBUMIN (BEAKER) 2.6 g/dL 3.5-5.0 L (test code = 1145) ALKALINE PHOSPHATASE 199 U/L 40-150 H (BEAKER) (test code = 346) BILIRUBIN TOTAL 0.7 mg/dL 0.2-1.2 (BEAKER) (test code = 377) SODIUM (BEAKER) (test 138 meq/L 136-145 code = 381) POTASSIUM (BEAKER) 3.2 meq/L 3.5-5.1 L (test code = 379) CHLORIDE (BEAKER) 98 meq/L 98-107 (test code = 382) CO2 (BEAKER) (test 28 meq/L 22-29 code = 355) BLOOD UREA NITROGEN 99 mg/dL 7-21 H (BEAKER) (test code = 354) CREATININE (BEAKER) 4.56 mg/dL 0.57-1.25 H (test code = 358) GLUCOSE RANDOM 70 mg/dL 70-105 (BEAKER) (test code = 652) CALCIUM (BEAKER) 8.2 mg/dL 8.4-10.2 L (test code = 697) AST (SGOT) (BEAKER) 24 U/L 5-34 (test code = 353) ALT (SGPT) (BEAKER) 20 U/L 6-55 (test code = 347) EGFR (BEAKER) (test 13 mL/min/1.73 ESTIMA JAMIE GFR IS code = 1092) sq m NOT ACCURATE CREATININE CLEARANCE IN PREDICTING GLOMERULAR FILTRATION RATE . ESTIMATED GFR I S NOT APPLICABLE FOR DIALYSIS PATIEN TS. BASIC METABOLIC [id number] 06:25:00 Test Item Value Reference Range Interpretation Comments SODIUM (BEAKER) 138 meq/L 136-145 (test code = 381) POTASSIUM (BEAKER) 3.2 meq/L 3.5-5.1 L (test code = 379) CHLORIDE (BEAKER) 98 meq/L 98-107 (test code = 382) CO2 (BEAKER) (test 28 meq/L 22-29 code = 355) BLOOD UREA NITROGEN 99 mg/dL 7-21 H (BEAKER) (test code = 354) CREATININE (BEAKER) 4.56 mg/dL 0.57-1.25 H (test code = 358) GLUCOSE RANDOM 70 mg/dL 70-105 (BEAKER) (test code = 652) CALCIUM (BEAKER) 8.2 mg/dL 8.4-10.2 L (test code = 697) EGFR (BEAKER) (test 13 mL/min/1.73 ESTIMA JAMIE GFR IS code = 1092) sq m NOT ACCURATE CREATININE CLEARANCE IN PREDICTING GLOMERULAR FILTRATION RATE . ESTIMATED GFR I S NOT APPLICABLE FOR DIALYSIS PATIEN TS. [id number] 06:23:00 Test Item Value Reference Range Interpretation Comments PHOSPHORUS (BEAKER) (test code = 4.9 mg/dL 2.3-4.7 H 604) [id number] 06:23:00 Test Item Value Reference Range Interpretation Comments MAGNESIUM (BEAKER) (test code = 1.4 mg/dL 1.6-2.6 L 627) B-TYPE NATRIURETIC FACTOR (BNP)[id number] 06:03:00 Test Item Value Reference Range Interpretation Comments B-TYPE NATRIURETIC PEPTIDE 1291 pg/mL 0-100 H (BEAKER) (test code = 700) CALCIUM, [id number] 05:49:00 Test Item Value Reference Range Interpretation Comments CALCIUM IONIZED (BEAKER) (test 0.96 mmol/L 1.12-1.27 L code = 698) PH, BLOOD (BEAKER) (test code = 7.43 1810) CBC W/PLT COUNT & AUTO [id number] 05:36:00 Test Item Value Reference Range Interpretation Comments WHITE BLOOD CELL COUNT (BEAKER) 13.0 K/ L 3.5-10.5 H (test code = 775) RED BLOOD CELL COUNT (BEAKER) 2.57 M/ L 4.63-6.08 L (test code = 761) HEMOGLOBIN (BEAKER) (test code = 7.9 GM/DL 13.7-17.5 L 410) HEMATOCRIT (BEAKER) (test code = 24.0 % 40.1-51.0 L 411) MEAN CORPUSCULAR VOLUME (BEAKER) 93.4 fL 79.0-92.2 H (test code = 753) MEAN CORPUSCULAR HEMOGLOBIN 30.7 pg 25.7-32.2 (BEAKER) (test code = 751) MEAN CORPUSCULAR HEMOGLOBIN CONC 32.9 GM/DL 32.3-36.5 (BEAKER) (test code = 752) RED CELL DISTRIBUTION WIDTH 15.6 % 11.6-14.4 H (BEAKER) (test code = 412) PLATELET COUNT (BEAKER) (test 529 K/CU MM 150-450 H code = 756) MEAN PLATELET VOLUME (BEAKER) 8.2 fL 9.4-12.4 L (test code = 754) NUCLEATED RED BLOOD CELLS 0 /100 WBC 0-0 (BEAKER) (test code = 413) NEUTROPHILS RELATIVE PERCENT 82 % (BEAKER) (test code = 429) LYMPHOCYTES RELATIVE PERCENT 6 % (BEAKER) (test code = 430) MONOCYTES RELATIVE PERCENT 10 % (BEAKER) (test code = 431) EOSINOPHILS RELATIVE PERCENT 2 % (BEAKER) (test code = 432) BASOPHILS RELATIVE PERCENT 0 % (BEAKER) (test code = 437) NEUTROPHILS ABSOLUTE COUNT 10.59 K/ L 1.78-5.38 H (BEAKER) (test code = 670) LYMPHOCYTES ABSOLUTE COUNT 0.73 K/ L 1.32-3.57 L (BEAKER) (test code = 414) MONOCYTES ABSOLUTE COUNT (BEAKER) 1.32 K/ L 0.30-0.82 H (test code = 415) EOSINOPHILS ABSOLUTE COUNT 0.24 K/ L 0.04-0.54 (BEAKER) (test code = 416) BASOPHILS ABSOLUTE COUNT (BEAKER) 0.03 K/ L 0.01-0.08 (test code = 417) IMMATURE GRANULOCYTES-RELATIVE 1 % 0-1 PERCENT (BEAKER) (test code = 2801) PROTEIN, RANDOM [id number] 05:24:00 Test Item Value Reference Range Interpretation Comments PROTEIN, URINE (BEAKER) (test code 409 mg/dL 0-14 H = 1569) URINALYSIS W/ [id number] 04:14:00 Test Item Value Reference Range Interpretation Comments COLOR (BEAKER) (test code Yellow = 470) CLARITY (BEAKER) (test Hazy code = 469) SPECIFIC GRAVITY UA 1.013 1.001-1.035 (BEAKER) (test code = 468) PH UA (BEAKER) (test code 6.0 5.0-8.0 = 467) PROTEIN UA (BEAKER) (test 300 mg/dL Negative A code = 464) GLUCOSE UA (BEAKER) (test 70 mg/dL Negative A code = 365) KETONES UA (BEAKER) (test Negative Negative code = 371) BILIRUBIN UA (BEAKER) Negative Negative (test code = 462) BLOOD UA (BEAKER) (test Negative Negative code = 461) NITRITE UA (BEAKER) (test Negative Negative code = 465) LEUKOCYTE ESTERASE UA Negative Negative (BEAKER) (test code = 466) UROBILINOGEN UA (BEAKER) 0.2 mg/dL 0.2-1.0 (test code = 463) RBC UA (BEAKER) (test code 2 /HPF = 519) WBC UA (BEAKER) (test code 2 /HPF = 520) MUCUS (BEAKER) (test code Rare = 1574) SQUAMOUS EPITHELIAL 5 /HPF (BEAKER) (test code = 516) CALCIUM OXALATE CRYSTALS Occasional (BEAKER) (test code = 518) AMORPHOUS CRYSTALS Few (BEAKER) (test code = 1584) SOURCE(BEAKER) (test code Urine, Clean Catch = 9766) CREATININE, RANDOM [id number] 03:46:00 Test Item Value Reference Range Interpretation Comments CREATININE URINE (BEAKER) (test 62.1 mg/dL code = 375) Reference Range: No NormalsRAD, KNEE, 3 VIEWS, [id number] 23:21:00Reason for exam:->R/o effusionFINAL REPORT RAD, KNEE, 3 VIEWS, RIGHT CLINICAL INDICATION: R/o effusionCOMPARISON: Right knee radiographs 04/07/2018. FINDINGS/IMPRESSION: Frontal, lateral and oblique views of the left knee were obtained. There is a large suprapatellar effusion with small lucencies tissues suspicious for gas in a setting of septic arthritis. There is no radiographic evidence for osteomyelitis. There is no acute fracture or dislocation. There are surgical clips in the posterior thigh and proximal leg. There are vascular calcifications. Signed: Dolores Gallegosort Verified Date/Time: 05/27/2018 23:21:39 Reading Location: [facility] [id number] CT Body Reading Room POCT-GLUCOSE [id number] 20:57:00 Test Item Value Reference Range Interpretation Comments POC-GLUCOSE METER 189 mg/dL 70-110 H TESTED AT [facility] ([facility]) (test code = [place] 1538) [id number] [id number] 18:53:00 Test Item Value Reference Range Interpretation Comments HAPTOGLOBIN (BEAKER) (test code = 607 mg/dL 14-258 H 366) LACTATE DEHYDROGENASE (LDH)2018-05-27 18:37:00 Test Item Value Reference Range Interpretation Comments LACTATE DEHYDROGENASE (BEAKER) (test 252 U/L 125-220 H code = 635) RETICULOCYTE [id number] 18:22:00 Test Item Value Reference Range Interpretation Comments RETICULOCYTE COUNT PCT (BEAKER) (test 3.2 % 0.5-1.8 H code = 575) POCT-GLUCOSE [id number] 18:15:00 Test Item Value Reference Range Interpretation Comments POC-GLUCOSE METER 107 mg/dL 70-110 TESTED AT [place] [id number] ([facility]) (test code = [place] 1538) [address] RAD, CHEST, 1 VIEW, NON [id number] 16:31:00Reason for exam:->ABNORMAL LABShould this be performed at the bedside?->YesFINAL REPORT EXAM: Frontal chest radiograph HISTORY PROVIDED: Abnormal lab COM PARISON: 04/26/2018 IMPRESSION:There is pulmonary vascular congestion as well as bilateral interstitial and airspace opacities compatible with edema stable to decreased since the previous examination. Superimposed pneumonitis should be excluded clinically. No pneumothorax or significant pleural fluid.The cardiac silhouette remains enlarged. Median sternotomy wires are again noted. No acute osseous abnormality. Signed: Jaxson Johnston MDReport Verified Date/Time: 05/27/2018 16:31:03 Reading Location: [facility] Reading Room HEPATIC FUNCTION [id number] 14:32:00 Test Item Value Reference Range Interpretation Comments TOTAL PROTEIN (BEAKER) (test code = 7.1 gm/dL 6.0-8.3 770) ALBUMIN (BEAKER) (test code = 1145) 2.5 g/dL 3.5-5.0 L BILIRUBIN TOTAL (BEAKER) (test code 0.4 mg/dL 0.2-1.2 = 377) BILIRUBIN DIRECT (BEAKER) (test 0.3 mg/dL 0.1-0.5 code = 706) ALKALINE PHOSPHATASE (BEAKER) (test 203 U/L 40-150 H code = 346) AST (SGOT) (BEAKER) (test code = 21 U/L 5-34 353) ALT (SGPT) (BEAKER) (test code = 20 U/L 6-55 347) [id number] 14:25:00 Test Item Value Reference Range Interpretation Comments PARTIAL THROMBOPLASTIN TIME 41.9 seconds 22.5-36.0 H (BEAKER) (test code = 760) PROTHROMBIN [id number] 14:24:00 Test Item Value Reference Range Interpretation Comments PROTIME (BEAKER) (test code = 16.3 seconds 11.7-14.7 H 759) INR (BEAKER) (test code = 370) 1.3 <=5.9 RECOMMENDED COUMADIN/WARFARIN INR THERAPY RANGESSTANDARD DOSE: 2.0 - 3.0 Includes: PROPHYLAXIS forvenous thrombosis, systemic embolization; TREATMENT for venous thrombosis and/or pulmonary embolus.HIGH RISK: Target INR is 2.5-3.5 for patients with mechanical heart valves.BASIC METABOLIC [id number] 12:51:00 Test Item Value Reference Range Interpretation Comments SODIUM (BEAKER) 134 meq/L 136-145 L (test code = 381) POTASSIUM (BEAKER) 3.5 meq/L 3.5-5.1 (test code = 379) CHLORIDE (BEAKER) 96 meq/L 98-107 L (test code = 382) CO2 (BEAKER) (test 26 meq/L 22-29 code = 355) BLOOD UREA NITROGEN 105 mg/dL 7-21 H (BEAKER) (test code = 354) CREATININE (BEAKER) 4.76 mg/dL 0.57-1.25 H (test code = 358) GLUCOSE RANDOM 326 mg/dL 70-105 H (BEAKER) (test code = 652) CALCIUM (BEAKER) 7.8 mg/dL 8.4-10.2 L (test code = 697) EGFR (BEAKER) (test 13 mL/min/1.73 ESTIMA JAMIE GFR IS code = 1092) sq m NOT ACCURATE CREATININE CLEARANCE IN PREDICTING GLOMERULAR FILTRATION RATE . ESTIMATED GFR I S NOT APPLICABLE FOR DIALYSIS PATIEN TS. CBC W/PLT COUNT & AUTO [id number] 12:43:00 Test Item Value Reference Range Interpretation Comments WHITE BLOOD CELL COUNT (BEAKER) 12.3 K/ L 3.5-10.5 H (test code = 775) RED BLOOD CELL COUNT (BEAKER) 1.91 M/ L 4.63-6.08 L (test code = 761) HEMOGLOBIN (BEAKER) (test code = 6.2 GM/DL 13.7-17.5 L 410) HEMATOCRIT (BEAKER) (test code = 18.8 % 40.1-51.0 L 411) MEAN CORPUSCULAR VOLUME (BEAKER) 98.4 fL 79.0-92.2 H (test code = 753) MEAN CORPUSCULAR HEMOGLOBIN 32.5 pg 25.7-32.2 H (BEAKER) (test code = 751) MEAN CORPUSCULAR HEMOGLOBIN CONC 33.0 GM/DL 32.3-36.5 (BEAKER) (test code = 752) RED CELL DISTRIBUTION WIDTH 13.6 % 11.6-14.4 (BEAKER) (test code = 412) PLATELET COUNT (BEAKER) (test 446 K/CU MM 150-450 code = 756) MEAN PLATELET VOLUME (BEAKER) 8.3 fL 9.4-12.4 L (test code = 754) NUCLEATED RED BLOOD CELLS 0 /100 WBC 0-0 (BEAKER) (test code = 413) NEUTROPHILS RELATIVE PERCENT 86 % (BEAKER) (test code = 429) LYMPHOCYTES RELATIVE PERCENT 5 % (BEAKER) (test code = 430) MONOCYTES RELATIVE PERCENT 7 % (BEAKER) (test code = 431) EOSINOPHILS RELATIVE PERCENT 1 % (BEAKER) (test code = 432) BASOPHILS RELATIVE PERCENT 0 % (BEAKER) (test code = 437) NEUTROPHILS ABSOLUTE COUNT 10.56 K/ L 1.78-5.38 H (BEAKER) (test code = 670) LYMPHOCYTES ABSOLUTE COUNT 0.55 K/ L 1.32-3.57 L (BEAKER) (test code = 414) MONOCYTES ABSOLUTE COUNT (BEAKER) 0.83 K/ L 0.30-0.82 H (test code = 415) EOSINOPHILS ABSOLUTE COUNT 0.17 K/ L 0.04-0.54 (BEAKER) (test code = 416) BASOPHILS ABSOLUTE COUNT (BEAKER) 0.03 K/ L 0.01-0.08 (test code = 417) IMMATURE GRANULOCYTES-RELATIVE 1 % 0-1 PERCENT (BEAKER) (test code = 2801) URINALYSIS W/ [id number] 10:40:00 Test Item Value Reference Range Interpretation Comments COLOR (BEAKER) (test code Yellow = 470) CLARITY (BEAKER) (test Clear code = 469) SPECIFIC GRAVITY UA 1.013 1.001-1.035 (BEAKER) (test code = 468) PH UA (BEAKER) (test code 6.0 5.0-8.0 = 467) PROTEIN UA (BEAKER) (test 300 mg/dL Negative A code = 464) GLUCOSE UA (BEAKER) (test 100 mg/dL Negative A code = 365) KETONES UA (BEAKER) (test Negative Negative code = 371) BILIRUBIN UA (BEAKER) Negative Negative (test code = 462) BLOOD UA (BEAKER) (test Small Negative A code = 461) NITRITE UA (BEAKER) (test Negative Negative code = 465) LEUKOCYTE ESTERASE UA Negative Negative (BEAKER) (test code = 466) UROBILINOGEN UA (BEAKER) 0.2 mg/dL 0.2-1.0 (test code = 463) RBC UA (BEAKER) (test code 1 /HPF = 519) WBC UA (BEAKER) (test code 1 /HPF = 520) BACTERIA (BEAKER) (test Rare code = 517) SQUAMOUS EPITHELIAL < /HPF (BEAKER) (test code = 516) HYALINE CASTS (BEAKER) 4 /LPF (test code = 514) SOURCE(BEAKER) (test code Urine, Clean Catch = 2795) RAD, KNEE, 3 VIEWS, [id number] 10:16:00Reason for exam:->trauma Should this be performed at the bedside?->NoFINAL REPORT RAD, KNEE, 3 VIEWS, RIGHT CLINICAL INDICATION: trauma COMPARISON: None FINDINGS: Frontal, oblique and lateral views of the right knee. There is no fracture or malalignment. Joint spaces are preserved with mild degenerative change. No joint fluid is demonstrated.Dense vascular calcifications are noted. Vascular clips are scattered throughout the posterior superficial soft tissues. IMPRESSION: Mild degenerative changes without traumatic abnormality of the rightknee. Signed: JR Hughes Robert MDReport Verified Date/Time: 05/08/2018 10:16:20 Reading Location: [facility] Radiology Reading Room POCT- GLUCOSE [id number] 12:43:00 Test Item Value Reference Range Interpretation Comments POC-GLUCOSE METER 118 mg/dL 70-110 H TESTED AT [place] [address] ([facility]) (test code = [facility] 1538) [id number] POCT-GLUCOSE [id number] 08:39:00 Test Item Value Reference Range Interpretation Comments POC-GLUCOSE METER 84 mg/dL 70-110 TESTED AT [place] [address] ([facility]) (test code = [facility] [address]38) POCT-GLUCOSE [id number] 08:25:00 Test Item Value Reference Range Interpretation Comments POC-GLUCOSE METER 54 mg/dL 70-110 L [facility] [place] [address] [facility] (test code = [facility] [address]) CALCIUM, [id number] 05:45:00 Test Item Value Reference Range Interpretation Comments CALCIUM IONIZED (BEAKER) (test 1.00 mmol/L 1.12-1.27 L code = 698) PH, BLOOD (BEAKER) (test code = 7.47 1810) BASIC METABOLIC [id number] 05:40:00 Test Item Value Reference Range Interpretation Comments SODIUM (BEAKER) 145 meq/L 136-145 (test code = 381) POTASSIUM (BEAKER) 3.9 meq/L 3.5-5.1 (test code = 379) CHLORIDE (BEAKER) 108 meq/L 98-107 H (test code = 382) CO2 (BEAKER) (test 31 meq/L 22-29 H code = 355) BLOOD UREA NITROGEN 41 mg/dL 7-21 H (BEAKER) (test code = 354) CREATININE (BEAKER) 3.29 mg/dL 0.57-1.25 H (test code = 358) GLUCOSE RANDOM 67 mg/dL 70-105 L (BEAKER) (test code = 652) CALCIUM (BEAKER) 8.4 mg/dL 8.4-10.2 (test code = 697) EGFR (BEAKER) (test 19 mL/min/1.73 ESTIMA JAMIE GFR IS code = 1092) sq m NOT ACCURATE CREATININE CLEARANCE IN PREDICTING GLOMERULAR FILTRATION RATE . ESTIMATED GFR I S NOT APPLICABLE FOR DIALYSIS PATIEN TS. [id number] 05:39:00 Test Item Value Reference Range Interpretation Comments PHOSPHORUS (BEAKER) (test code = 3.5 mg/dL 2.3-4.7 604) [id number] 05:39:00 Test Item Value Reference Range Interpretation Comments MAGNESIUM (BEAKER) (test code = 1.8 mg/dL 1.6-2.6 627) CBC W/PLT COUNT & AUTO [id number] 05:20:00 Test Item Value Reference Range Interpretation Comments WHITE BLOOD CELL COUNT (BEAKER) 8.7 K/ L 3.5-10.5 (test code = 775) RED BLOOD CELL COUNT (BEAKER) 2.37 M/ L 4.63-6.08 L (test code = 761) HEMOGLOBIN (BEAKER) (test code = 7.6 GM/DL 13.7-17.5 L 410) HEMATOCRIT (BEAKER) (test code = 23.3 % 40.1-51.0 L 411) MEAN CORPUSCULAR VOLUME (BEAKER) 98.3 fL 79.0-92.2 H (test code = 753) MEAN CORPUSCULAR HEMOGLOBIN 32.1 pg 25.7-32.2 (BEAKER) (test code = 751) MEAN CORPUSCULAR HEMOGLOBIN CONC 32.6 GM/DL 32.3-36.5 (BEAKER) (test code = 752) RED CELL DISTRIBUTION WIDTH 14.9 % 11.6-14.4 H (BEAKER) (test code = 412) PLATELET COUNT (BEAKER) (test 252 K/CU MM 150-450 code = 756) MEAN PLATELET VOLUME (BEAKER) 8.5 fL 9.4-12.4 L (test code = 754) NUCLEATED RED BLOOD CELLS 0 /100 WBC 0-0 (BEAKER) (test code = 413) NEUTROPHILS RELATIVE PERCENT 76 % (BEAKER) (test code = 429) LYMPHOCYTES RELATIVE PERCENT 10 % (BEAKER) (test code = 430) MONOCYTES RELATIVE PERCENT 9 % (BEAKER) (test code = 431) EOSINOPHILS RELATIVE PERCENT 4 % (BEAKER) (test code = 432) BASOPHILS RELATIVE PERCENT 1 % (BEAKER) (test code = 437) NEUTROPHILS ABSOLUTE COUNT 6.59 K/ L 1.78-5.38 H (BEAKER) (test code = 670) LYMPHOCYTES ABSOLUTE COUNT 0.85 K/ L 1.32-3.57 L (BEAKER) (test code = 414) MONOCYTES ABSOLUTE COUNT (BEAKER) 0.82 K/ L 0.30-0.82 (test code = 415) EOSINOPHILS ABSOLUTE COUNT 0.37 K/ L 0.04-0.54 (BEAKER) (test code = 416) BASOPHILS ABSOLUTE COUNT (BEAKER) 0.05 K/ L 0.01-0.08 (test code = 417) IMMATURE GRANULOCYTES-RELATIVE 1 % 0-1 PERCENT (BEAKER) (test code = 2801) POCT-GLUCOSE [id number] 21:49:00 Test Item Value Reference Range Interpretation Comments POC-GLUCOSE METER 60 mg/dL 70-110 L TESTED AT [facility] (BEAKER) (test code = [place] [address]38) POCT-GLUCOSE [id number] 17:10:00 Test Item Value Reference Range Interpretation Comments POC-GLUCOSE METER 154 mg/dL 70-110 H TESTED AT [facility] (BEAKER) (test code = [place] [facility] 1538) [id number] POCT-GLUCOSE [id number] 12:47:00 Test Item Value Reference Range Interpretation Comments POC-GLUCOSE METER 234 mg/dL 70-110 H TESTED AT [facility] (BEAKER) (test code = [place] [facility] 1538) [address] POCT-GLUCOSE [id number] 07:46:00 Test Item Value Reference Range Interpretation Comments POC-GLUCOSE METER 90 mg/dL 70-110 TESTED AT [place] [address] (BEAKER) (test code = [place] [facility] [address] 1538) BASIC METABOLIC [id number] 05:59:00 Test Item Value Reference Range Interpretation Comments SODIUM (BEAKER) 146 meq/L 136-145 H (test code = 381) POTASSIUM (BEAKER) 3.3 meq/L 3.5-5.1 L (test code = 379) CHLORIDE (BEAKER) 107 meq/L 98-107 (test code = 382) CO2 (BEAKER) (test 30 meq/L 22-29 H code = 355) BLOOD UREA NITROGEN 43 mg/dL 7-21 H (BEAKER) (test code = 354) CREATININE (BEAKER) 3.29 mg/dL 0.57-1.25 H (test code = 358) GLUCOSE RANDOM 82 mg/dL 70-105 (BEAKER) (test code = 652) CALCIUM (BEAKER) 7.9 mg/dL 8.4-10.2 L (test code = 697) EGFR (BEAKER) (test 19 mL/min/1.73 ESTIMA JAMIE GFR IS code = 1092) sq m NOT ACCURATE CREATININE CLEARANCE IN PREDICTING GLOMERULAR FILTRATION RATE . ESTIMATED GFR I S NOT APPLICABLE FOR DIALYSIS PATIEN TS. [id number] 05:55:00 Test Item Value Reference Range Interpretation Comments MAGNESIUM (BEAKER) (test code = 1.9 mg/dL 1.6-2.6 627) CBC W/PLT COUNT & AUTO [id number] 05:51:00 Test Item Value Reference Range Interpretation Comments WHITE BLOOD CELL COUNT (BEAKER) 6.7 K/ L 3.5-10.5 (test code = 775) RED BLOOD CELL COUNT (BEAKER) 2.37 M/ L 4.63-6.08 L (test code = 761) HEMOGLOBIN (BEAKER) (test code = 7.6 GM/DL 13.7-17.5 L 410) HEMATOCRIT (BEAKER) (test code = 23.3 % 40.1-51.0 L 411) MEAN CORPUSCULAR VOLUME (BEAKER) 98.3 fL 79.0-92.2 H (test code = 753) MEAN CORPUSCULAR HEMOGLOBIN 32.1 pg 25.7-32.2 (BEAKER) (test code = 751) MEAN CORPUSCULAR HEMOGLOBIN CONC 32.6 GM/DL 32.3-36.5 (BEAKER) (test code = 752) RED CELL DISTRIBUTION WIDTH 15.0 % 11.6-14.4 H (BEAKER) (test code = 412) PLATELET COUNT (BEAKER) (test 260 K/CU MM 150-450 code = 756) MEAN PLATELET VOLUME (BEAKER) 8.7 fL 9.4-12.4 L (test code = 754) NUCLEATED RED BLOOD CELLS 0 /100 WBC 0-0 (BEAKER) (test code = 413) NEUTROPHILS RELATIVE PERCENT 65 % (BEAKER) (test code = 429) LYMPHOCYTES RELATIVE PERCENT 16 % (BEAKER) (test code = 430) MONOCYTES RELATIVE PERCENT 11 % (BEAKER) (test code = 431) EOSINOPHILS RELATIVE PERCENT 7 % (BEAKER) (test code = 432) BASOPHILS RELATIVE PERCENT 1 % (BEAKER) (test code = 437) NEUTROPHILS ABSOLUTE COUNT 4.36 K/ L 1.78-5.38 (BEAKER) (test code = 670) LYMPHOCYTES ABSOLUTE COUNT 1.05 K/ L 1.32-3.57 L (BEAKER) (test code = 414) MONOCYTES ABSOLUTE COUNT (BEAKER) 0.75 K/ L 0.30-0.82 (test code = 415) EOSINOPHILS ABSOLUTE COUNT 0.45 K/ L 0.04-0.54 (BEAKER) (test code = 416) BASOPHILS ABSOLUTE COUNT (BEAKER) 0.05 K/ L 0.01-0.08 (test code = 417) IMMATURE GRANULOCYTES-RELATIVE 0 % 0-1 PERCENT (BEAKER) (test code = 2801) POCT-GLUCOSE [id number] 22:35:00 Test Item Value Reference Range Interpretation Comments POC-GLUCOSE METER 98 mg/dL 70-110 TESTED AT [place] [address] ([facility]) (test code = [facility] [address]) OCCULT BLOOD, [id number] 18:55:00 Test Item Value Reference Range Interpretation Comments FECAL OCCULT BLOOD ([facility]) (test Positive Negative A code = 618) POCT-GLUCOSE [id number] 17:51:00 Test Item Value Reference Range Interpretation Comments POC-GLUCOSE METER 149 mg/dL 70-110 H TESTED AT [place] [address] ([facility]) (test code = [facility] 1538) [id number] 12:22:00 Test Item Value Reference Range Interpretation Comments POTASSIUM ([facility]) (test code = 3.6 meq/L 3.5-5.1 379) POCT-GLUCOSE [id number] 11:27:00 Test Item Value Reference Range Interpretation Comments POC-GLUCOSE METER 244 mg/dL 70-110 H TESTED AT [place] [address] ([facility]) (test code = [facility] 1538) [address] POCT-GLUCOSE [id number] 07:42:00 Test Item Value Reference Range Interpretation Comments POC-GLUCOSE METER 90 mg/dL 70-110 TESTED AT [place] [address] ([facility]) (test code = [facility] [address]) CALCIUM, [id number] 06:53:00 Test Item Value Reference Range Interpretation Comments CALCIUM IONIZED ([facility]) (test 0.86 mmol/L 1.12-1.27 L code = 698) PH, BLOOD ([facility]) (test code = 7.52 1810) TROPONIN [id number] 06:40:00 Test Item Value Reference Range Interpretation Comments TROPONIN I ([facility]) (test code = 0.04 ng/mL 0.00-0.03 H 397) COMPREHENSIVE METABOLIC [id number] 05:48:00 Test Item Value Reference Range Interpretation Comments TOTAL PROTEIN 6.3 gm/dL 6.0-8.3 ([facility]) (test code = 770) ALBUMIN (AKER) 3.0 g/dL 3.5-5.0 L (test code = 1145) ALKALINE PHOSPHATASE 106 U/L 40-150 (AKER) (test code = 346) BILIRUBIN TOTAL 0.6 mg/dL 0.2-1.2 (BEAKER) (test code = 377) SODIUM (BEAKER) (test 144 meq/L 136-145 code = 381) POTASSIUM (BEAKER) 3.0 meq/L 3.5-5.1 L (test code = 379) CHLORIDE (BEAKER) 106 meq/L 98-107 (test code = 382) CO2 (BEAKER) (test 29 meq/L 22-29 code = 355) BLOOD UREA NITROGEN 50 mg/dL 7-21 H (BEAKER) (test code = 354) CREATININE (BEAKER) 3.35 mg/dL 0.57-1.25 H (test code = 358) GLUCOSE RANDOM 93 mg/dL 70-105 (BEAKER) (test code = 652) CALCIUM (BEAKER) 7.4 mg/dL 8.4-10.2 L (test code = 697) AST (SGOT) (BEAKER) 17 U/L 5-34 (test code = 353) ALT (SGPT) (BEAKER) 17 U/L 6-55 (test code = 347) EGFR (BEAKER) (test 19 mL/min/1.73 ESTIMA JAMIE GFR IS code = 1092) sq m NOT ACCURATE CREATININE CLEARANCE IN PREDICTING GLOMERULAR FILTRATION RATE . ESTIMATED GFR I S NOT APPLICABLE FOR DIALYSIS PATIEN TS. [id number] 05:47:00 Test Item Value Reference Range Interpretation Comments PHOSPHORUS (BEAKER) (test code = 3.8 mg/dL 2.3-4.7 604) [id number] 05:47:00 Test Item Value Reference Range Interpretation Comments MAGNESIUM (BEAKER) (test code = 1.7 mg/dL 1.6-2.6 627) HEPATIC FUNCTION [id number] 05:47:00 Test Item Value Reference Range Interpretation Comments TOTAL PROTEIN (BEAKER) (test code = 6.3 gm/dL 6.0-8.3 770) ALBUMIN (BEAKER) (test code = 1145) 3.0 g/dL 3.5-5.0 L BILIRUBIN TOTAL (BEAKER) (test code 0.6 mg/dL 0.2-1.2 = 377) BILIRUBIN DIRECT (BEAKER) (test 0.3 mg/dL 0.1-0.5 code = 706) ALKALINE PHOSPHATASE (BEAKER) (test 106 U/L 40-150 code = 346) AST (SGOT) (BEAKER) (test code = 17 U/L 5-34 353) ALT (SGPT) (BEAKER) (test code = 17 U/L 6-55 347) CBC W/PLT COUNT & AUTO [id number] 05:41:00 Test Item Value Reference Range Interpretation Comments WHITE BLOOD CELL COUNT (BEAKER) 6.3 K/ L 3.5-10.5 (test code = 775) RED BLOOD CELL COUNT (BEAKER) 2.27 M/ L 4.63-6.08 L (test code = 761) HEMOGLOBIN (BEAKER) (test code = 7.3 GM/DL 13.7-17.5 L 410) HEMATOCRIT (BEAKER) (test code = 22.0 % 40.1-51.0 L 411) MEAN CORPUSCULAR VOLUME (BEAKER) 96.9 fL 79.0-92.2 H (test code = 753) MEAN CORPUSCULAR HEMOGLOBIN 32.2 pg 25.7-32.2 (BEAKER) (test code = 751) MEAN CORPUSCULAR HEMOGLOBIN CONC 33.2 GM/DL 32.3-36.5 (BEAKER) (test code = 752) RED CELL DISTRIBUTION WIDTH 15.5 % 11.6-14.4 H (BEAKER) (test code = 412) PLATELET COUNT (BEAKER) (test 246 K/CU MM 150-450 code = 756) MEAN PLATELET VOLUME (BEAKER) 8.7 fL 9.4-12.4 L (test code = 754) NUCLEATED RED BLOOD CELLS 0 /100 WBC 0-0 (BEAKER) (test code = 413) NEUTROPHILS RELATIVE PERCENT 66 % (BEAKER) (test code = 429) LYMPHOCYTES RELATIVE PERCENT 15 % (BEAKER) (test code = 430) MONOCYTES RELATIVE PERCENT 12 % (BEAKER) (test code = 431) EOSINOPHILS RELATIVE PERCENT 6 % (BEAKER) (test code = 432) BASOPHILS RELATIVE PERCENT 1 % (BEAKER) (test code = 437) NEUTROPHILS ABSOLUTE COUNT 4.15 K/ L 1.78-5.38 (BEAKER) (test code = 670) LYMPHOCYTES ABSOLUTE COUNT 0.93 K/ L 1.32-3.57 L (BEAKER) (test code = 414) MONOCYTES ABSOLUTE COUNT (BEAKER) 0.77 K/ L 0.30-0.82 (test code = 415) EOSINOPHILS ABSOLUTE COUNT 0.37 K/ L 0.04-0.54 (BEAKER) (test code = 416) BASOPHILS ABSOLUTE COUNT (BEAKER) 0.04 K/ L 0.01-0.08 (test code = 417) IMMATURE GRANULOCYTES-RELATIVE 1 % 0-1 PERCENT (BEAKER) (test code = 2801) POCT-GLUCOSE [id number] 21:57:00 Test Item Value Reference Range Interpretation Comments POC-GLUCOSE METER 272 mg/dL 70-110 H TEST[facility] AT [place] [address] [facility] (test code = [facility] 1538) [id number] POCT-GLUCOSE [id number] 12:01:00 Test Item Value Reference Range Interpretation Comments POC-GLUCOSE METER 230 mg/dL 70-110 H TESTED AT [place] [address] ([facility] [facility] (test code = [facility] 1538) [address] PROTEIN, RANDOM [id number] 09:26:00 Test Item Value Reference Range Interpretation Comments PROTEIN, URINE (BEAKER) (test code 355 mg/dL 0-14 H = 1569) POCT-GLUCOSE [id number] 08:40:00 Test Item Value Reference Range Interpretation Comments POC-GLUCOSE METER 195 mg/dL 70-110 H TESTED AT [place] [address] [facility] (test code = [facility] 1538) [address] CREATININE, RANDOM [id number] 06:38:00 Test Item Value Reference Range Interpretation Comments CREATININE URINE (BEAKER) (test 45.5 mg/dL code = 375) Reference Range: No NormalsCALCIUM, [id number] 06:25:00 Test Item Value Reference Range Interpretation Comments CALCIUM IONIZED (BEAKER) (test 0.79 mmol/L 1.12-1.27 LL code = 698) PH, BLOOD (BEAKER) (test code = 7.56 1810) CBC W/PLT COUNT & AUTO [id number] 05:17:00 Test Item Value Reference Range Interpretation Comments WHITE BLOOD CELL COUNT (BEAKER) 6.6 K/ L 3.5-10.5 (test code = 775) RED BLOOD CELL COUNT (BEAKER) 2.04 M/ L 4.63-6.08 L (test code = 761) HEMOGLOBIN (BEAKER) (test code = 6.6 GM/DL 13.7-17.5 L 410) HEMATOCRIT (BEAKER) (test code = 20.6 % 40.1-51.0 L 411) MEAN CORPUSCULAR VOLUME (BEAKER) 101.0 fL 79.0-92.2 H (test code = 753) MEAN CORPUSCULAR HEMOGLOBIN 32.4 pg 25.7-32.2 H (BEAKER) (test code = 751) MEAN CORPUSCULAR HEMOGLOBIN CONC 32.0 GM/DL 32.3-36.5 L (BEAKER) (test code = 752) RED CELL DISTRIBUTION WIDTH 15.0 % 11.6-14.4 H (BEAKER) (test code = 412) PLATELET COUNT (BEAKER) (test 274 K/CU MM 150-450 code = 756) MEAN PLATELET VOLUME (BEAKER) 9.0 fL 9.4-12.4 L (test code = 754) NUCLEATED RED BLOOD CELLS 0 /100 WBC 0-0 (BEAKER) (test code = 413) NEUTROPHILS RELATIVE PERCENT 74 % (BEAKER) (test code = 429) LYMPHOCYTES RELATIVE PERCENT 11 % (BEAKER) (test code = 430) MONOCYTES RELATIVE PERCENT 9 % (BEAKER) (test code = 431) EOSINOPHILS RELATIVE PERCENT 4 % (BEAKER) (test code = 432) BASOPHILS RELATIVE PERCENT 1 % (BEAKER) (test code = 437) NEUTROPHILS ABSOLUTE COUNT 4.93 K/ L 1.78-5.38 (BEAKER) (test code = 670) LYMPHOCYTES ABSOLUTE COUNT 0.75 K/ L 1.32-3.57 L (BEAKER) (test code = 414) MONOCYTES ABSOLUTE COUNT (BEAKER) 0.61 K/ L 0.30-0.82 (test code = 415) EOSINOPHILS ABSOLUTE COUNT 0.28 K/ L 0.04-0.54 (BEAKER) (test code = 416) BASOPHILS ABSOLUTE COUNT (BEAKER) 0.04 K/ L 0.01-0.08 (test code = 417) IMMATURE GRANULOCYTES-RELATIVE 1 % 0-1 PERCENT (BEAKER) (test code = 2801) RETICULOCYTE [id number] 05:17:00 Test Item Value Reference Range Interpretation Comments RETICULOCYTE COUNT PCT (BEAKER) (test 5.7 % 0.5-1.8 H code = 575) [id number] 05:07:00 Test Item Value Reference Range Interpretation Comments FERRITIN (BEAKER) (test code = 361) 940 ng/mL 5-275 H VITAMIN B12 AND [id number] 05:07:00 Test Item Value Reference Range Interpretation Comments VITAMIN B12 (BEAKER) (test code = 373 pg/mL 213-816 774) FOLATE (BEAKER) (test code = 362) 18.1 ng/mL >=7.0 COMPREHENSIVE METABOLIC [id number] 04:35:00 Test Item Value Reference Range Interpretation Comments TOTAL PROTEIN 6.3 gm/dL 6.0-8.3 Specimen sligh tly (BEAKER) (test code = hemoly zed 770) ALBUMIN (BEAKER) 3.0 g/dL 3.5-5.0 L Specimen sl ightly (test code = 1145) hemolyzed ALKALINE PHOSPHATASE 110 U/L 40-150 (BEAKER) (test code = 346) BILIRUBIN TOTAL 0.6 mg/dL 0.2-1.2 Specimen sli ghtly (BEAKER) (test code = hemoly zed 377) SODIUM (BEAKER) (test 144 meq/L 136-145 code = 381) POTASSIUM (BEAKER) 3.2 meq/L 3.5-5.1 L Specimen slightly (test code = 379) hemolyzed CHLORIDE (BEAKER) 105 meq/L 98-107 (test code = 382) CO2 (BEAKER) (test 28 meq/L 22-29 code = 355) BLOOD UREA NITROGEN 55 mg/dL 7-21 H (BEAKER) (test code = 354) CREATININE (BEAKER) 3.50 mg/dL 0.57-1.25 H Specimen slightly (test code = 358) hemolyzed GLUCOSE RANDOM 204 mg/dL 70-105 H (BEAKER) (test code = 652) CALCIUM (BEAKER) 7.3 mg/dL 8.4-10.2 L (test code = 697) AST (SGOT) (BEAKER) 27 U/L 5-34 Specimen slightly (test code = 353) hemolyzed ALT (SGPT) (BEAKER) 23 U/L 6-55 Specimen slightly (test code = 347) hemolyzed EGFR (BEAKER) (test 18 mL/min/1.73 ESTIMA JAMIE GFR IS code = 1092) sq m NOT ACCURATE CREATININE CLEARANCE IN PREDICTING GLOMERULAR FILTRATION RATE . ESTIMATED GFR I S NOT APPLICABLE FOR DIALYSIS PATIEN TS. IRON, TIBC, % SAT. (WITHOUT FERRITIN)2018-04-28 04:31:00 Test Item Value Reference Range Interpretation Comments IRON (BEAKER) (test code = 547) 50 ug/dL 40-160 TOTAL IRON BINDING CAPACITY 153 ug/dL 250-450 L (BEAKER) (test code = 769) IRON % SATURATION (2) (BEAKER) 33 % 20-55 (test code = 2590) B-TYPE NATRIURETIC FACTOR (BNP)2018-04-28 04:23:00 Test Item Value Reference Range Interpretation Comments B-TYPE NATRIURETIC PEPTIDE 1000 pg/mL 0-100 H (BEAKER) (test code = 700) [id number] 04:19:00 Test Item Value Reference Range Interpretation Comments MAGNESIUM (BEAKER) 1.7 mg/dL 1.6-2.6 Specimen slightly (test code = 627) hemolyzed [id number] 04:19:00 Test Item Value Reference Range Interpretation Comments PHOSPHORUS (BEAKER) 4.1 mg/dL 2.3-4.7 Specimen slightly (test code = 604) hemolyzed HEPATIC FUNCTION [id number] 04:19:00 Test Item Value Reference Range Interpretation Comments TOTAL PROTEIN (BEAKER) 6.3 gm/dL 6.0-8.3 Speci men slightly (test code = 770) hemolyzed ALBUMIN (BEAKER) (test 3.0 g/dL 3.5-5.0 L Speci men slightly code = 1145) hemolyzed BILIRUBIN TOTAL 0.6 mg/dL 0.2-1.2 Specimen sli ghtly (BEAKER) (test code = hemoly zed 377) BILIRUBIN DIRECT 0.2 mg/dL 0.1-0.5 Specimen sl ightly (BEAKER) (test code = hemoly zed 706) ALKALINE PHOSPHATASE 110 U/L 40-150 (BEAKER) (test code = 346) AST (SGOT) (BEAKER) 27 U/L 5-34 Specimen slightly (test code = 353) hemolyzed ALT (SGPT) (BEAKER) 23 U/L 6-55 Specimen slightly (test code = 347) hemolyzed POCT-GLUCOSE [id number] 21:36:00 Test Item Value Reference Range Interpretation Comments POC-GLUCOSE METER 230 mg/dL 70-110 H TESTED AT [facility] (test code = [facility] [place] 1538) [address] IRON, TIBC, % SAT. (WITHOUT FERRITIN)2018-04-27 15:18:00 Test Item Value Reference Range Interpretation Comments IRON (BEAKER) (test code = 547) 51 ug/dL 40-160 TOTAL IRON BINDING CAPACITY 154 ug/dL 250-450 L (BEAKER) (test code = 769) IRON % SATURATION (2) (BEAKER) 33 % 20-55 (test code = 2590) HEMOGLOBIN [id number] 12:05:00 Test Item Value Reference Range Interpretation Comments HEMOGLOBIN A1C (BEAKER) (test code = 6.3 % 4.3-6.1 H 368) POCT-GLUCOSE [id number] 11:20:00 Test Item Value Reference Range Interpretation Comments POC-GLUCOSE METER 284 mg/dL 70-110 H TESTED AT [place] [address] ([facility]) (test code = [facility] 1538) [address] POCT-GLUCOSE [id number] 08:49:00 Test Item Value Reference Range Interpretation Comments POC-GLUCOSE METER 92 mg/dL 70-110 TESTED AT [place] [address] ([facility]) (test code = [facility] [address] 1538) BASIC METABOLIC [id number] 03:30:00 Test Item Value Reference Range Interpretation Comments SODIUM (BEAKER) 146 meq/L 136-145 H (test code = 381) POTASSIUM (BEAKER) 3.0 meq/L 3.5-5.1 L (test code = 379) CHLORIDE (BEAKER) 106 meq/L 98-107 (test code = 382) CO2 (BEAKER) (test 27 meq/L 22-29 code = 355) BLOOD UREA NITROGEN 58 mg/dL 7-21 H (BEAKER) (test code = 354) CREATININE (BEAKER) 3.78 mg/dL 0.57-1.25 H (test code = 358) GLUCOSE RANDOM 104 mg/dL 70-105 (BEAKER) (test code = 652) CALCIUM (BEAKER) 7.1 mg/dL 8.4-10.2 L (test code = 697) EGFR (BEAKER) (test 17 mL/min/1.73 ESTIMA JAMIE GFR IS code = 1092) sq m NOT ACCURATE CREATININE CLEARANCE IN PREDICTING GLOMERULAR FILTRATION RATE . ESTIMATED GFR I S NOT APPLICABLE FOR DIALYSIS PATIEN TS. [id number] 03:29:00 Test Item Value Reference Range Interpretation Comments PHOSPHORUS (BEAKER) (test code = 4.6 mg/dL 2.3-4.7 604) [id number] 03:29:00 Test Item Value Reference Range Interpretation Comments MAGNESIUM (BEAKER) (test code = 1.5 mg/dL 1.6-2.6 L 627) LIPID [id number] 03:29:00 Test Item Value Reference Range Interpretation Comments TRIGLYCERIDES (BEAKER) (test code = 88 mg/dL 540) CHOLESTEROL (BEAKER) (test code = 116 mg/dL 631) HDL CHOLESTEROL (BEAKER) (test code 36 mg/dL = 976) LDL CHOLESTEROL CALCULATED (BEAKER) 62 mg/dL (test code = 633) Triglyceride Reference Range: Low Risk <150 Borderline 150-199 High Risk 200-499 Very High Risk >=500Cholesterol Reference Range: Low Risk <200 Borderline 200-239 High Risk >240HDL Cholesterol Reference Range: Low Risk >=60 High Risk <40LDL Cholesterol Reference Range: Optimal <100 Near Optimal 100-129 Borderline 130-159 High 160-189 Very High >=190HEPATIC FUNCTION [id number] 03:29:00 Test Item Value Reference Range Interpretation Comments TOTAL PROTEIN (BEAKER) (test code = 6.3 gm/dL 6.0-8.3 770) ALBUMIN (BEAKER) (test code = 1145) 3.1 g/dL 3.5-5.0 L BILIRUBIN TOTAL (BEAKER) (test code 0.6 mg/dL 0.2-1.2 = 377) BILIRUBIN DIRECT (BEAKER) (test 0.3 mg/dL 0.1-0.5 code = 706) ALKALINE PHOSPHATASE (BEAKER) (test 116 U/L 40-150 code = 346) AST (SGOT) (KURTIS) (test code = 24 U/L 5-34 353) ALT (SGPT) (DANIELAKER) (test code = 23 U/L 6-55 347) TROPONIN [id number] 03:26:00 Test Item Value Reference Range Interpretation Comments TROPONIN I (KURTIS) (test code = 0.01 ng/mL 0.00-0.03 397) POCT-GLUCOSE [id number] 00:06:00 Test Item Value Reference Range Interpretation Comments POC-GLUCOSE METER 126 mg/dL 70-110 H TESTED AT [facility] 67[facility] (KURTIS) (test code = [place] 1538) [address] TSH/FREE T4 IF [id number] 22:12:00 Test Item Value Reference Range Interpretation Comments THYROID STIMULATING HORMONE 1.47 uIU/mL 0.35-4.94 (KURTIS) (test code = 772) RAD, CHEST, 1 VIEW, NON [id number] 21:33:00Reason for exam:->SHORTNESS OF BREATHReason for exam:->LEG SWELLINGFINAL REPORT History: Shortness of breath and leg swelling. Comparison: 10/31/2017 Findings: A single view of the chest is submitted. The cardiac silhouette is prominent in size but similar to previous. There is atherosclerotic calcification of the aorta. Sternotomy wires are inplace. There is moderate central pulmonary vascular congestion. Bilateral interstitial and patchy infrahilar airspace opacities suggest pulmonary edema. There is no pneumothorax, large pleural effusion or acute bony abnormality. Signed: Malena [facility] [place] Verified Date/Time: 04/26/2018 21:33:27 Reading Location: [address] Consult Reading Room ONIN [id number] 20:21:00 Test Item Value Reference Range Interpretation Comments TROPONIN I (KURTIS) (test code = 0.01 ng/mL 0.00-0.03 397) B-TYPE NATRIURETIC FACTOR (BNP)2018-04-26 20:20:00 Test Item Value Reference Range Interpretation Comments B-TYPE NATRIURETIC PEPTIDE 1226 pg/mL 0-100 H (BEAKER) (test code = 700) BASIC METABOLIC [id number] 20:16:00 Test Item Value Reference Range Interpretation Comments SODIUM (BEAKER) 146 meq/L 136-145 H (test code = 381) POTASSIUM (BEAKER) 3.3 meq/L 3.5-5.1 L (test code = 379) CHLORIDE (BEAKER) 109 meq/L 98-107 H (test code = 382) CO2 (BEAKER) (test 26 meq/L 22-29 code = 355) BLOOD UREA NITROGEN 61 mg/dL 7-21 H (BEAKER) (test code = 354) CREATININE (BEAKER) 3.77 mg/dL 0.57-1.25 H (test code = 358) GLUCOSE RANDOM 124 mg/dL 70-105 H (BEAKER) (test code = 652) CALCIUM (BEAKER) 7.4 mg/dL 8.4-10.2 L (test code = 697) EGFR (BEAKER) (test 17 mL/min/1.73 ESTIMA JAMIE GFR IS code = 1092) sq m NOT ACCURATE CREATININE CLEARANCE IN PREDICTING GLOMERULAR FILTRATION RATE . ESTIMATED GFR I S NOT APPLICABLE FOR DIALYSIS PATIEN TS. HEPATIC FUNCTION [id number] 20:15:00 Test Item Value Reference Range Interpretation Comments TOTAL PROTEIN (BEAKER) (test code = 6.7 gm/dL 6.0-8.3 770) ALBUMIN (BEAKER) (test code = 1145) 3.3 g/dL 3.5-5.0 L BILIRUBIN TOTAL (BEAKER) (test code 0.6 mg/dL 0.2-1.2 = 377) BILIRUBIN DIRECT (BEAKER) (test 0.3 mg/dL 0.1-0.5 code = 706) ALKALINE PHOSPHATASE (BEAKER) (test 126 U/L 40-150 code = 346) AST (SGOT) (BEAKER) (test code = 29 U/L 5-34 353) ALT (SGPT) (BEAKER) (test code = 28 U/L 6-55 347) CBC W/PLT COUNT & AUTO [id number] 20:05:00 Test Item Value Reference Range Interpretation Comments WHITE BLOOD CELL COUNT (BEAKER) 7.6 K/ L 3.5-10.5 (test code = 775) RED BLOOD CELL COUNT (BEAKER) 2.19 M/ L 4.63-6.08 L (test code = 761) HEMOGLOBIN (BEAKER) (test code = 7.2 GM/DL 13.7-17.5 L 410) HEMATOCRIT (BEAKER) (test code = 21.7 % 40.1-51.0 L 411) MEAN CORPUSCULAR VOLUME (BEAKER) 99.1 fL 79.0-92.2 H (test code = 753) MEAN CORPUSCULAR HEMOGLOBIN 32.9 pg 25.7-32.2 H (BEAKER) (test code = 751) MEAN CORPUSCULAR HEMOGLOBIN CONC 33.2 GM/DL 32.3-36.5 (BEAKER) (test code = 752) RED CELL DISTRIBUTION WIDTH 14.9 % 11.6-14.4 H (BEAKER) (test code = 412) PLATELET COUNT (BEAKER) (test 276 K/CU MM 150-450 code = 756) MEAN PLATELET VOLUME (BEAKER) 8.6 fL 9.4-12.4 L (test code = 754) NUCLEATED RED BLOOD CELLS 0 /100 WBC 0-0 (BEAKER) (test code = 413) NEUTROPHILS RELATIVE PERCENT 71 % (BEAKER) (test code = 429) LYMPHOCYTES RELATIVE PERCENT 16 % (BEAKER) (test code = 430) MONOCYTES RELATIVE PERCENT 9 % (BEAKER) (test code = 431) EOSINOPHILS RELATIVE PERCENT 4 % (BEAKER) (test code = 432) BASOPHILS RELATIVE PERCENT 0 % (BEAKER) (test code = 437) NEUTROPHILS ABSOLUTE COUNT 5.33 K/ L 1.78-5.38 (BEAKER) (test code = 670) LYMPHOCYTES ABSOLUTE COUNT 1.22 K/ L 1.32-3.57 L (BEAKER) (test code = 414) MONOCYTES ABSOLUTE COUNT (BEAKER) 0.65 K/ L 0.30-0.82 (test code = 415) EOSINOPHILS ABSOLUTE COUNT 0.29 K/ L 0.04-0.54 (BEAKER) (test code = 416) BASOPHILS ABSOLUTE COUNT (BEAKER) 0.03 K/ L 0.01-0.08 (test code = 417) IMMATURE GRANULOCYTES-RELATIVE 0 % 0-1 PERCENT (BEAKER) (test code = 2801) ANG, CV ACCESS, [id number] 07:59:00Reason for Exam:->ESRDFINAL REPORT Right chest Tunneled hemodialysis catheter removal History: Recovery of renal function Modality: None. Sedation: None Supervisor Green [employer] Department: Isidro Warner MD. Heat Pump Installer: None. Approach: Right anterior chest. Estimated blood loss: < 5 cc. Specimen: None. Technique: The procedure including risks and benefits were explained to the patient, who expressed understanding. After informed written consent was obtained, the patient's right anterior chest region was prepped and draped in the usual sterile fashion. The skin was anesthetized with lidocaine. The tunneled central line was then removed in toto with blunt dissection and gentle traction. The skin entry site was then dressed with sterile gauze and Tegaderm. The patient tolerated the procedure well. Impression: Successful, uncomplicated removal of a right chest tunneled hemodialysis catheter. Signed: Isidro Warner MDReport Verified Date/Time: 04/11/2018 07:59:00 Reading Location: [address] Body Reading Room Electronically signedby: ISIDRO WARNER on 04/11/2018 07:59 [id number] 12:29:00 Test Item Value Reference Range Interpretation Comments PROTIME (KURTIS) (test code = 14.1 seconds 11.7-14.7 759) INR (KURTIS) (test code = 370) 1.1 <=5.9 PARTIAL THROMBOPLASTIN TIME 32.1 seconds 22.5-36.0 (KURTIS) (test code = 760) RECOMMENDED COUMADIN/WARFARIN INR THERAPY RANGESSTANDARD DOSE: 2.0 - 3.0 Includes: PROPHYLAXIS forvenous thrombosis, systemic embolization; TREATMENT for venous thrombosis and/or pulmonary embolus.HIGH RISK: Target INR is 2.5-3.5 for patients with mechanical heart valves.PLATELET [id number] 12:19:00 Test Item Value Reference Range Interpretation Comments PLATELET COUNT (KURTIS) (test 281 K/CU MM 150-450 code = 756) POCT-GLUCOSE [id number] 12:25:00 Test Item Value Reference Range Interpretation Comments POC-GLUCOSE METER 179 mg/dL 70-110 H TESTED AT [facility] 67[address] ([facility]) (test code = [place] 1538) [address] CALCIUM, [id number] 09:30:00 Test Item Value Reference Range Interpretation Comments CALCIUM IONIZED (BEAKER) (test 1.13 mmol/L 1.12-1.27 code = 698) PH, BLOOD (BEAKER) (test code = 7.38 1810) COMPREHENSIVE METABOLIC [id number] 09:30:00 Test Item Value Reference Range Interpretation Comments TOTAL PROTEIN 6.6 gm/dL 6.0-8.3 (BEAKER) (test code = 770) ALBUMIN (BEAKER) 3.1 g/dL 3.5-5.0 L (test code = 1145) ALKALINE PHOSPHATASE 153 U/L 40-150 H (BEAKER) (test code = 346) BILIRUBIN TOTAL 0.5 mg/dL 0.2-1.2 (BEAKER) (test code = 377) SODIUM (BEAKER) (test 137 meq/L 136-145 code = 381) POTASSIUM (BEAKER) 4.7 meq/L 3.5-5.1 (test code = 379) CHLORIDE (BEAKER) 99 meq/L 98-107 (test code = 382) CO2 (BEAKER) (test 28 meq/L 22-29 code = 355) BLOOD UREA NITROGEN 30 mg/dL 7-21 H (BEAKER) (test code = 354) CREATININE (BEAKER) 4.34 mg/dL 0.57-1.25 H (test code = 358) GLUCOSE RANDOM 133 mg/dL 70-105 H (BEAKER) (test code = 652) CALCIUM (BEAKER) 8.5 mg/dL 8.4-10.2 (test code = 697) AST (SGOT) (BEAKER) 19 U/L 5-34 (test code = 353) ALT (SGPT) (BEAKER) 10 U/L 6-55 (test code = 347) EGFR (BEAKER) (test 14 mL/min/1.73 ESTIMA JAMIE GFR IS code = 1092) sq m NOT ACCURATE CREATININE CLEARANCE IN PREDICTING GLOMERULAR FILTRATION RATE . ESTIMATED GFR I S NOT APPLICABLE FOR DIALYSIS PATIEN TS. [id number] 09:27:00 Test Item Value Reference Range Interpretation Comments PHOSPHORUS (BEAKER) (test code = 3.7 mg/dL 2.3-4.7 604) [id number] 09:27:00 Test Item Value Reference Range Interpretation Comments MAGNESIUM (BEAKER) (test code = 2.4 mg/dL 1.6-2.6 627) CBC W/PLT COUNT & AUTO [id number] 09:00:00 Test Item Value Reference Range Interpretation Comments WHITE BLOOD CELL COUNT (BEAKER) 8.1 K/ L 3.5-10.5 (test code = 775) RED BLOOD CELL COUNT (BEAKER) 2.74 M/ L 4.63-6.08 L (test code = 761) HEMOGLOBIN (BEAKER) (test code = 7.9 GM/DL 13.7-17.5 L 410) HEMATOCRIT (BEAKER) (test code = 25.1 % 40.1-51.0 L 411) MEAN CORPUSCULAR VOLUME (BEAKER) 91.6 fL 79.0-92.2 (test code = 753) MEAN CORPUSCULAR HEMOGLOBIN 28.8 pg 25.7-32.2 (BEAKER) (test code = 751) MEAN CORPUSCULAR HEMOGLOBIN CONC 31.5 GM/DL 32.3-36.5 L (BEAKER) (test code = 752) RED CELL DISTRIBUTION WIDTH 14.1 % 11.6-14.4 (BEAKER) (test code = 412) PLATELET COUNT (BEAKER) (test 399 K/CU MM 150-450 code = 756) MEAN PLATELET VOLUME (BEAKER) 8.3 fL 9.4-12.4 L (test code = 754) NUCLEATED RED BLOOD CELLS 0 /100 WBC 0-0 (BEAKER) (test code = 413) NEUTROPHILS RELATIVE PERCENT 73 % (BEAKER) (test code = 429) LYMPHOCYTES RELATIVE PERCENT 11 % (BEAKER) (test code = 430) MONOCYTES RELATIVE PERCENT 11 % (BEAKER) (test code = 431) EOSINOPHILS RELATIVE PERCENT 5 % (BEAKER) (test code = 432) BASOPHILS RELATIVE PERCENT 0 % (BEAKER) (test code = 437) NEUTROPHILS ABSOLUTE COUNT 5.94 K/ L 1.78-5.38 H (BEAKER) (test code = 670) LYMPHOCYTES ABSOLUTE COUNT 0.86 K/ L 1.32-3.57 L (BEAKER) (test code = 414) MONOCYTES ABSOLUTE COUNT (BEAKER) 0.87 K/ L 0.30-0.82 H (test code = 415) EOSINOPHILS ABSOLUTE COUNT 0.37 K/ L 0.04-0.54 ([facility]) (test code = 416) BASOPHILS ABSOLUTE COUNT ([facility]) 0.03 K/ L 0.01-0.08 (test code = 417) IMMATURE GRANULOCYTES-RELATIVE 1 % 0-1 PERCENT ([facility]) (test code = 2801) POCT-GLUCOSE [id number] 07:34:00 Test Item Value Reference Range Interpretation Comments POC-GLUCOSE METER 155 mg/dL 70-110 H TESTED AT [place] [address] ([facility]) (test code = [facility] 1538) [address] POCT-GLUCOSE [id number] 21:18:00 Test Item Value Reference Range Interpretation Comments POC-GLUCOSE METER 268 mg/dL 70-110 H TESTED AT [place] [address] ([facility]) (test code = [facility] 1538) [address] POCT-GLUCOSE [id number] 17:36:00 Test Item Value Reference Range Interpretation Comments POC-GLUCOSE METER 221 mg/dL 70-110 H TESTED AT [place] [address] ([facility]) (test code = [facility] 1538) [address] POCT-GLUCOSE [id number] 12:04:00 Test Item Value Reference Range Interpretation Comments POC-GLUCOSE METER 228 mg/dL 70-110 H TESTED AT [place] [address] ([facility]) (test code = [facility] 1538) [address] POCT-GLUCOSE [id number] 10:31:00 Test Item Value Reference Range Interpretation Comments POC-GLUCOSE METER 161 mg/dL 70-110 H TESTED AT [place] [address] ([facility]) (test code = [facility] 1538) [address] POCT-GLUCOSE [id number] 07:13:00 Test Item Value Reference Range Interpretation Comments POC-GLUCOSE METER 93 mg/dL 70-110 TESTED AT [place] [address] ([facility]) (test code = [facility] [id number] 1538) POCT-GLUCOSE [id number] 21:16:00 Test Item Value Reference Range Interpretation Comments POC-GLUCOSE METER 168 mg/dL 70-110 H TESTED AT [place] [address] ([facility]) (test code = [facility] 1538) [id number] POCT-GLUCOSE [id number] 18:38:00 Test Item Value Reference Range Interpretation Comments POC-GLUCOSE METER 113 mg/dL 70-110 H TESTED AT [facility] 6720 (BEAKER) (test code = CLAIRE May [facility] 1538) [id number] POCT-GLUCOSE [id number] 12:22:00 Test Item Value Reference Range Interpretation Comments POC-GLUCOSE METER 163 mg/dL 70-110 H TESTED AT [facility] (BEAKER) (test code = [facility] Yadira [facility] 1538) [id number] POCT-GLUCOSE [id number] 08:37:00 Test Item Value Reference Range Interpretation Comments POC-GLUCOSE METER 71 mg/dL 70-110 TESTED AT [facility] 67[facility] (BEAKER) (test code = [facility] Yadira [facility] [id number] 1538) COMPREHENSIVE METABOLIC [id number] 06:33:00 Test Item Value Reference Range Interpretation Comments TOTAL PROTEIN 6.5 gm/dL 6.0-8.3 Specimen sligh tly (BEAKER) (test code = hemoly zed 770) ALBUMIN (BEAKER) 3.0 g/dL 3.5-5.0 L Specimen sl ightly (test code = 1145) hemolyzed ALKALINE PHOSPHATASE 165 U/L 40-150 H (BEAKER) (test code = 346) BILIRUBIN TOTAL 0.5 mg/dL 0.2-1.2 Specimen sli ghtly (BEAKER) (test code = hemoly zed 377) SODIUM (BEAKER) (test 135 meq/L 136-145 L code = 381) POTASSIUM (BEAKER) 5.0 meq/L 3.5-5.1 Specimen slightly (test code = 379) hemolyzed CHLORIDE (BEAKER) 99 meq/L 98-107 (test code = 382) CO2 (BEAKER) (test 28 meq/L 22-29 code = 355) BLOOD UREA NITROGEN 34 mg/dL 7-21 H (BEAKER) (test code = 354) CREATININE (BEAKER) 3.94 mg/dL 0.57-1.25 H Specimen slightly (test code = 358) hemolyzed GLUCOSE RANDOM 78 mg/dL 70-105 (BEAKER) (test code = 652) CALCIUM (BEAKER) 8.3 mg/dL 8.4-10.2 L (test code = 697) AST (SGOT) (BEAKER) 23 U/L 5-34 Specimen slightly (test code = 353) hemolyzed ALT (SGPT) (BEAKER) 9 U/L 6-55 Specimen slightly (test code = 347) hemolyzed EGFR (BEAKER) (test 16 mL/min/1.73 ESTIMA JAMIE GFR IS code = 1092) sq m NOT ACCURATE CREATININE CLEARANCE IN PREDICTING GLOMERULAR FILTRATION RATE . ESTIMATED GFR I S NOT APPLICABLE FOR DIALYSIS PATIEN TS. CALCIUM, [id number] 06:30:00 Test Item Value Reference Range Interpretation Comments CALCIUM IONIZED (BEAKER) (test 1.02 mmol/L 1.12-1.27 L code = 698) PH, BLOOD (BEAKER) (test code = 7.40 1810) [id number] 06:25:00 Test Item Value Reference Range Interpretation Comments MAGNESIUM (BEAKER) 2.5 mg/dL 1.6-2.6 Specimen slightly (test code = 627) hemolyzed [id number] 06:25:00 Test Item Value Reference Range Interpretation Comments PHOSPHORUS (BEAKER) 4.0 mg/dL 2.3-4.7 Specimen slightly (test code = 604) hemolyzed CBC W/PLT COUNT & AUTO [id number] 05:45:00 Test Item Value Reference Range Interpretation Comments WHITE BLOOD CELL COUNT (BEAKER) 7.5 K/ L 3.5-10.5 (test code = 775) RED BLOOD CELL COUNT (BEAKER) 2.78 M/ L 4.63-6.08 L (test code = 761) HEMOGLOBIN (BEAKER) (test code = 8.0 GM/DL 13.7-17.5 L 410) HEMATOCRIT (BEAKER) (test code = 25.6 % 40.1-51.0 L 411) MEAN CORPUSCULAR VOLUME (BEAKER) 92.1 fL 79.0-92.2 (test code = 753) MEAN CORPUSCULAR HEMOGLOBIN 28.8 pg 25.7-32.2 (BEAKER) (test code = 751) MEAN CORPUSCULAR HEMOGLOBIN CONC 31.3 GM/DL 32.3-36.5 L (BEAKER) (test code = 752) RED CELL DISTRIBUTION WIDTH 14.6 % 11.6-14.4 H (BEAKER) (test code = 412) PLATELET COUNT (BEAKER) (test 484 K/CU MM 150-450 H code = 756) MEAN PLATELET VOLUME (BEAKER) 8.7 fL 9.4-12.4 L (test code = 754) NUCLEATED RED BLOOD CELLS 0 /100 WBC 0-0 (BEAKER) (test code = 413) NEUTROPHILS RELATIVE PERCENT 71 % (BEAKER) (test code = 429) LYMPHOCYTES RELATIVE PERCENT 10 % (BEAKER) (test code = 430) MONOCYTES RELATIVE PERCENT 13 % (BEAKER) (test code = 431) EOSINOPHILS RELATIVE PERCENT 6 % (BEAKER) (test code = 432) BASOPHILS RELATIVE PERCENT 1 % (BEAKER) (test code = 437) NEUTROPHILS ABSOLUTE COUNT 5.30 K/ L 1.78-5.38 (BEAKER) (test code = 670) LYMPHOCYTES ABSOLUTE COUNT 0.76 K/ L 1.32-3.57 L (BEAKER) (test code = 414) MONOCYTES ABSOLUTE COUNT (BEAKER) 0.95 K/ L 0.30-0.82 H (test code = 415) EOSINOPHILS ABSOLUTE COUNT 0.42 K/ L 0.04-0.54 (BEAKER) (test code = 416) BASOPHILS ABSOLUTE COUNT (BEAKER) 0.04 K/ L 0.01-0.08 (test code = 417) IMMATURE GRANULOCYTES-RELATIVE 1 % 0-1 PERCENT (BEAKER) (test code = 2801) URINALYSIS W/ REFLEX URINE [id number] 03:20:00 Test Item Value Reference Range Interpretation Comments COLOR (BEAKER) (test code = 470) Yellow CLARITY (BEAKER) (test code = 469) Hazy SPECIFIC GRAVITY UA (BEAKER) (test 1.016 1.001-1.035 code = 468) PH UA (BEAKER) (test code = 467) 5.5 5.0-8.0 PROTEIN UA (BEAKER) (test code = 300 mg/dL Negative A 464) GLUCOSE UA (BEAKER) (test code = 50 mg/dL Negative A 365) KETONES UA (BEAKER) (test code = Negative Negative 371) BILIRUBIN UA (BEAKER) (test code = Negative Negative 462) BLOOD UA (BEAKER) (test code = 461) Negative Negative NITRITE UA (BEAKER) (test code = Negative Negative 465) LEUKOCYTE ESTERASE UA (BEAKER) Moderate Negative A (test code = 466) UROBILINOGEN UA (BEAKER) (test code 2.0 mg/dL 0.2-1.0 H = 463) RBC UA (BEAKER) (test code = 519) 4 /HPF WBC UA (BEAKER) (test code = 520) 26 /HPF MUCUS (BEAKER) (test code = 1574) Rare SQUAMOUS EPITHELIAL (BEAKER) (test 3 /HPF code = 516) HYALINE CASTS (BEAKER) (test code = 37 /LPF 514) AMORPHOUS CRYSTALS (BEAKER) (test Moderate code = 1584) SOURCE(BEAKER) (test code = 2795) POCT-GLUCOSE [id number] 22:04:00 Test Item Value Reference Range Interpretation Comments POC-GLUCOSE METER 103 mg/dL 70-110 TESTED AT [facility] (BEAKER) (test code = [facility] 1538) [address] POCT-GLUCOSE [id number] 17:38:00 Test Item Value Reference Range Interpretation Comments POC-GLUCOSE METER 193 mg/dL 70-110 H TESTED AT [place] [address] (BEAKER) (test code = [facility] 1538) [address] RAD, CHEST, 1 VIEW, NON [id number] 15:57:00Reason for exam:->Check Pul EdemaShould this be performed at the bedside?->YesFINAL REPORT EXAM: Frontal chest radiograph HISTORY PROVIDED: Check pulmonaryedema COMPARISON: 10/29/2017 IMPRESSION:No significant change is seen in the small left pleural effusion with adjacent atelectasis/consolidation. No significant pulmonary edema. The right lung is clear.No discernible pneumothorax. Right IJ central venous catheter is in unchanged position. Postsurgicalchanges of median sternotomy are noted. The cardiac silhouette remains enlarged. No acute osseous abnormality. Signed: Jaxson Johnston Verified Date/Time: 10/31/2017 15:57:12 [facility] POCT-GLUCOSE [id number] 12:32:00 Test Item Value Reference Range Interpretation Comments POC-GLUCOSE METER 193 mg/dL 70-110 H TESTED AT [place] [address] ([facility]) (test code = CLAIRE May [facility] 1538) [address] POCT-GLUCOSE [id number] 08:28:00 Test Item Value Reference Range Interpretation Comments POC-GLUCOSE METER 83 mg/dL 70-110 TESTED AT [place] [address] ([facility]) (test code = CLAIRE May [facility] [address] 1538) POCT-GLUCOSE [id number] 21:02:00 Test Item Value Reference Range Interpretation Comments POC-GLUCOSE METER 210 mg/dL 70-110 H TESTED AT [place] [address] ([facility]) (test code = CLAIRE May [facility] 1538) [address] POCT-GLUCOSE [id number] 17:57:00 Test Item Value Reference Range Interpretation Comments POC-GLUCOSE METER 157 mg/dL 70-110 H TESTED AT [place] [address] ([facility]) (test code = CLAIRE May [facility] 1538) [address] POCT-GLUCOSE [id number] 12:14:00 Test Item Value Reference Range Interpretation Comments POC-GLUCOSE METER 166 mg/dL 70-110 H TESTED AT [place] [address] ([facility]) (test code = SARTHAKNM Yadira [facility] 1538) [address] POCT-GLUCOSE [id number] 09:35:00 Test Item Value Reference Range Interpretation Comments POC-GLUCOSE METER 157 mg/dL 70-110 H TESTED AT [place] [address] ([facility]) (test code = CLAIRE May [facility] 1538) [address] [id number] 08:56:00 Test Item Value Reference Range Interpretation Comments FERRITIN ([facility]) (test code = 2668 ng/mL 5-275 H 361) CALCIUM, [id number] 07:34:00 Test Item Value Reference Range Interpretation Comments CALCIUM IONIZED ([facility]) (test 1.00 mmol/L 1.12-1.27 L code = 698) PH, BLOOD ([facility]) (test code = 7.44 1810) POCT-GLUCOSE [id number] 07:16:00 Test Item Value Reference Range Interpretation Comments POC-GLUCOSE METER 60 mg/dL 70-110 L Notified R Ruma JUNE/TESTED AT ([facility]) (test code = [address] 1538) [facility] [address] POCT-GLUCOSE [id number] 07:16:00 Test Item Value Reference Range Interpretation Comments POC-GLUCOSE METER 61 mg/dL 70-110 L Notified Yadira Hendrix MD/TESTED AT (BEAKER) (test code = [facility] [facility] 7[address] 0 COMPREHENSIVE METABOLIC [id number] 05:54:00 Test Item Value Reference Range Interpretation Comments TOTAL PROTEIN 6.1 gm/dL 6.0-8.3 (BEAKER) (test code = 770) ALBUMIN (BEAKER) 2.8 g/dL 3.5-5.0 L (test code = 1145) ALKALINE PHOSPHATASE 174 U/L 40-150 H (BEAKER) (test code = 346) BILIRUBIN TOTAL 0.5 mg/dL 0.2-1.2 (BEAKER) (test code = 377) SODIUM (BEAKER) (test 130 meq/L 136-145 L code = 381) POTASSIUM (BEAKER) 4.5 meq/L 3.5-5.1 (test code = 379) CHLORIDE (BEAKER) 94 meq/L 98-107 L (test code = 382) CO2 (BEAKER) (test 28 meq/L 22-29 code = 355) BLOOD UREA NITROGEN 47 mg/dL 7-21 H (BEAKER) (test code = 354) CREATININE (BEAKER) 4.94 mg/dL 0.57-1.25 H (test code = 358) GLUCOSE RANDOM 66 mg/dL 70-105 L (BEAKER) (test code = 652) CALCIUM (BEAKER) 8.3 mg/dL 8.4-10.2 L (test code = 697) AST (SGOT) (BEAKER) 23 U/L 5-34 (test code = 353) ALT (SGPT) (BEAKER) 9 U/L 6-55 (test code = 347) EGFR (BEAKER) (test 12 mL/min/1.73 ESTIMA JAMIE GFR IS code = 1092) sq m NOT ACCURATE CREATININE CLEARANCE IN PREDICTING GLOMERULAR FILTRATION RATE . ESTIMATED GFR I S NOT APPLICABLE FOR DIALYSIS PATIEN TS. [id number] 05:42:00 Test Item Value Reference Range Interpretation Comments PHOSPHORUS (BEAKER) (test code = 4.2 mg/dL 2.3-4.7 604) [id number] 05:42:00 Test Item Value Reference Range Interpretation Comments MAGNESIUM (BEAKER) (test code = 2.1 mg/dL 1.6-2.6 627) IRON, TIBC, % SAT. (WITHOUT FERRITIN)2017-10-30 05:32:00 Test Item Value Reference Range Interpretation Comments IRON (BEAKER) (test code = 547) 17 ug/dL 40-160 L TOTAL IRON BINDING CAPACITY 164 ug/dL 250-450 L (BEAKER) (test code = 769) IRON % SATURATION (2) (BEAKER) 10 % 20-55 L (test code = 2590) RETICULOCYTE [id number] 05:18:00 Test Item Value Reference Range Interpretation Comments RETICULOCYTE COUNT PCT (BEAKER) (test 3.3 % 0.5-1.8 H code = 575) CBC W/PLT COUNT & AUTO [id number] 05:18:00 Test Item Value Reference Range Interpretation Comments WHITE BLOOD CELL COUNT (BEAKER) 9.7 K/ L 3.5-10.5 (test code = 775) RED BLOOD CELL COUNT (BEAKER) 2.70 M/ L 4.63-6.08 L (test code = 761) HEMOGLOBIN (BEAKER) (test code = 8.0 GM/DL 13.7-17.5 L 410) HEMATOCRIT (BEAKER) (test code = 24.4 % 40.1-51.0 L 411) MEAN CORPUSCULAR VOLUME (BEAKER) 90.4 fL 79.0-92.2 (test code = 753) MEAN CORPUSCULAR HEMOGLOBIN 29.6 pg 25.7-32.2 (BEAKER) (test code = 751) MEAN CORPUSCULAR HEMOGLOBIN CONC 32.8 GM/DL 32.3-36.5 (BEAKER) (test code = 752) RED CELL DISTRIBUTION WIDTH 14.6 % 11.6-14.4 H (BEAKER) (test code = 412) PLATELET COUNT (BEAKER) (test 412 K/CU MM 150-450 code = 756) MEAN PLATELET VOLUME (BEAKER) 8.3 fL 9.4-12.4 L (test code = 754) NUCLEATED RED BLOOD CELLS 0 /100 WBC 0-0 (BEAKER) (test code = 413) NEUTROPHILS RELATIVE PERCENT 76 % (BEAKER) (test code = 429) LYMPHOCYTES RELATIVE PERCENT 8 % (BEAKER) (test code = 430) MONOCYTES RELATIVE PERCENT 11 % (BEAKER) (test code = 431) EOSINOPHILS RELATIVE PERCENT 5 % (BEAKER) (test code = 432) BASOPHILS RELATIVE PERCENT 0 % (BEAKER) (test code = 437) NEUTROPHILS ABSOLUTE COUNT 7.34 K/ L 1.78-5.38 H (BEAKER) (test code = 670) LYMPHOCYTES ABSOLUTE COUNT 0.75 K/ L 1.32-3.57 L (BEAKER) (test code = 414) MONOCYTES ABSOLUTE COUNT (BEAKER) 1.01 K/ L 0.30-0.82 H (test code = 415) EOSINOPHILS ABSOLUTE COUNT 0.48 K/ L 0.04-0.54 (BEAKER) (test code = 416) BASOPHILS ABSOLUTE COUNT (BEAKER) 0.03 K/ L 0.01-0.08 (test code = 417) IMMATURE GRANULOCYTES-RELATIVE 1 % 0-1 PERCENT (BEAKER) (test code = 2801) POCT-GLUCOSE [id number] 21:08:00 Test Item Value Reference Range Interpretation Comments POC-GLUCOSE METER 130 mg/dL 70-110 H TEST[facility] AT [facility] (test code = CLAIRE May [facility] 1538) [address] POCT-GLUCOSE [id number] 17:49:00 Test Item Value Reference Range Interpretation Comments POC-GLUCOSE METER 163 mg/dL 70-110 H TESTED AT [facility] 67[facility] (test code = CLAIRE May [facility] 1538) [address] POCT-GLUCOSE [id number] 12:04:00 Test Item Value Reference Range Interpretation Comments POC-GLUCOSE METER 116 mg/dL 70-110 H TESTED AT [facility] 67[facility] ([facility] (test code = [facility] Yadira [facility] 1538) [address] RAD, CHEST, 2 [id number] 11:18:00Reason for exam:->left effusionShould this be performed at the bedside?->NoFINAL REPORT Chest two views INDICATION: Left effusion COMPARISON: 10/28/2017 IMPRESSION: A small left and trace right pleural effusion are present with adjacent airspace disease,atelectasis versus pneumonitis. Pulmonary edema is similar in appearance. The enlarged cardiomediastinal silhouette is stable in size. Median sternotomy changes and a right jugular dialysis catheter are noted. No pneumothorax is seen. Signed: Kelli Valencia MDReport Verified Date/Time: 10/29/2017 11:18:10 Reading Location: [facility] Radiology Reading Room POCT- GLUCOSE [id number] 07:05:00 Test Item Value Reference Range Interpretation Comments POC-GLUCOSE METER 116 mg/dL 70-110 H TESTED AT [facility] 6720 (BEAKER) (test code = CLAIRE May [place] 1538) [address] CBC W/PLT COUNT & AUTO [id number] 05:52:00 Test Item Value Reference Range Interpretation Comments WHITE BLOOD CELL COUNT (BEAKER) 9.4 K/ L 3.5-10.5 (test code = 775) RED BLOOD CELL COUNT (BEAKER) 2.72 M/ L 4.63-6.08 L (test code = 761) HEMOGLOBIN (BEAKER) (test code = 8.0 GM/DL 13.7-17.5 L 410) HEMATOCRIT (BEAKER) (test code = 24.9 % 40.1-51.0 L 411) MEAN CORPUSCULAR VOLUME (BEAKER) 91.5 fL 79.0-92.2 (test code = 753) MEAN CORPUSCULAR HEMOGLOBIN 29.4 pg 25.7-32.2 (BEAKER) (test code = 751) MEAN CORPUSCULAR HEMOGLOBIN CONC 32.1 GM/DL 32.3-36.5 L (BEAKER) (test code = 752) RED CELL DISTRIBUTION WIDTH 14.6 % 11.6-14.4 H (BEAKER) (test code = 412) PLATELET COUNT (BEAKER) (test 438 K/CU MM 150-450 code = 756) MEAN PLATELET VOLUME (BEAKER) 8.2 fL 9.4-12.4 L (test code = 754) NUCLEATED RED BLOOD CELLS 0 /100 WBC 0-0 (BEAKER) (test code = 413) NEUTROPHILS RELATIVE PERCENT 75 % (BEAKER) (test code = 429) LYMPHOCYTES RELATIVE PERCENT 9 % (BEAKER) (test code = 430) MONOCYTES RELATIVE PERCENT 12 % (BEAKER) (test code = 431) EOSINOPHILS RELATIVE PERCENT 4 % (BEAKER) (test code = 432) BASOPHILS RELATIVE PERCENT 0 % (BEAKER) (test code = 437) NEUTROPHILS ABSOLUTE COUNT 7.03 K/ L 1.78-5.38 H (BEAKER) (test code = 670) LYMPHOCYTES ABSOLUTE COUNT 0.84 K/ L 1.32-3.57 L (BEAKER) (test code = 414) MONOCYTES ABSOLUTE COUNT (BEAKER) 1.10 K/ L 0.30-0.82 H (test code = 415) EOSINOPHILS ABSOLUTE COUNT 0.38 K/ L 0.04-0.54 (BEAKER) (test code = 416) BASOPHILS ABSOLUTE COUNT (BEAKER) 0.03 K/ L 0.01-0.08 (test code = 417) IMMATURE GRANULOCYTES-RELATIVE 1 % 0-1 PERCENT (BEAKER) (test code = 2801) COMPREHENSIVE METABOLIC [id number] 05:23:00 Test Item Value Reference Range Interpretation Comments TOTAL PROTEIN 6.0 gm/dL 6.0-8.3 (BEAKER) (test code = 770) ALBUMIN (BEAKER) 2.8 g/dL 3.5-5.0 L (test code = 1145) ALKALINE PHOSPHATASE 170 U/L 40-150 H (BEAKER) (test code = 346) BILIRUBIN TOTAL 0.5 mg/dL 0.2-1.2 (BEAKER) (test code = 377) SODIUM (BEAKER) (test 131 meq/L 136-145 L code = 381) POTASSIUM (BEAKER) 4.1 meq/L 3.5-5.1 (test code = 379) CHLORIDE (BEAKER) 94 meq/L 98-107 L (test code = 382) CO2 (BEAKER) (test 28 meq/L 22-29 code = 355) BLOOD UREA NITROGEN 36 mg/dL 7-21 H (BEAKER) (test code = 354) CREATININE (BEAKER) 4.46 mg/dL 0.57-1.25 H (test code = 358) GLUCOSE RANDOM 89 mg/dL 70-105 (BEAKER) (test code = 652) CALCIUM (BEAKER) 7.9 mg/dL 8.4-10.2 L (test code = 697) AST (SGOT) (BEAKER) 24 U/L 5-34 (test code = 353) ALT (SGPT) ([facility]) 9 U/L 6-55 (test code = 347) EGFR ([facility]) (test 14 mL/min/1.73 ESTIMA JAMIE GFR IS code = 1092) sq m NOT ACCURATE CREATININE CLEARANCE IN PREDICTING GLOMERULAR FILTRATION RATE . ESTIMATED GFR I S NOT APPLICABLE FOR DIALYSIS PATIEN TS. POCT-GLUCOSE [id number] 21:16:00 Test Item Value Reference Range Interpretation Comments POC-GLUCOSE METER 155 mg/dL 70-110 H TESTED AT [place] [address] ([facility]) (test code = [facility] Yadira [facility] 1538) [id number] POCT-GLUCOSE [id number] 17:46:00 Test Item Value Reference Range Interpretation Comments POC-GLUCOSE METER 200 mg/dL 70-110 H TESTED AT [place] [address] ([facility]) (test code = [facility] Yadira [facility] 1538) [address] POCT-GLUCOSE [id number] 12:10:00 Test Item Value Reference Range Interpretation Comments POC-GLUCOSE METER 212 mg/dL 70-110 H TESTED AT [place] [address] ([facility]) (test code = [facility] 1538) [address] RAD, CHEST, 1 VIEW, NON [id number] 10:26:00while patient is intubated or has chest tubes.Reason for exam:->chest tubesShould this be performed at the bedside?->YesFINAL REPORT Portable chest. HISTORY: Chest tubes. Comparison Study: October 27, 2017. FINDINGS: The cardiac silhouette markedly enlarged. The patient is status post sternotomy. Aright-sided central line is seen. There is atelectasis or consolidation in the left lower lung field with a small left-sided pleural effusion. The right lung is clear. No pneumothorax noted. Degenerative changes are seen. IMPRESSION: No significant change. Signed: Yani Pierceeport Verified Date/Time: 10/28/2017 10:26:22 Reading Location: [address] Body Reading Room POCT-GLUCOSE METER 2017-10-28 07:55:00 Test Item Value Reference Range Interpretation Comments POC-GLUCOSE METER 92 mg/dL 70-110 TESTED AT [facility] 6720 (BEAKER) (test code = [place] [address] 1538) BASIC METABOLIC [id number] 05:39:00 Test Item Value Reference Range Interpretation Comments SODIUM (BEAKER) 135 meq/L 136-145 L (test code = 381) POTASSIUM (BEAKER) 3.8 meq/L 3.5-5.1 (test code = 379) CHLORIDE (BEAKER) 98 meq/L 98-107 (test code = 382) CO2 (BEAKER) (test 28 meq/L 22-29 code = 355) BLOOD UREA NITROGEN 25 mg/dL 7-21 H (BEAKER) (test code = 354) CREATININE (BEAKER) 3.51 mg/dL 0.57-1.25 H (test code = 358) GLUCOSE RANDOM 91 mg/dL 70-105 (BEAKER) (test code = 652) CALCIUM (BEAKER) 7.9 mg/dL 8.4-10.2 L (test code = 697) EGFR (BEAKER) (test 18 mL/min/1.73 ESTIMA JAMIE GFR IS code = 1092) sq m NOT ACCURATE CREATININE CLEARANCE IN PREDICTING GLOMERULAR FILTRATION RATE . ESTIMATED GFR I S NOT APPLICABLE FOR DIALYSIS PATIEN TS. [id number] 05:34:00 Test Item Value Reference Range Interpretation Comments PHOSPHORUS (BEAKER) (test code = 3.0 mg/dL 2.3-4.7 604) [id number] 05:34:00 Test Item Value Reference Range Interpretation Comments MAGNESIUM (BEAKER) (test code = 2.0 mg/dL 1.6-2.6 627) CBC (HEMOGRAM ONLY)2017-10-28 04:37:00 Test Item Value Reference Range Interpretation Comments WHITE BLOOD CELL COUNT 9.8 K/ L 3.5-10.5 (BEAKER) (test code = 775) RED BLOOD CELL COUNT 2.70 M/ L 4.63-6.08 L (BEAKER) (test code = 761) HEMOGLOBIN (BEAKER) 7.9 GM/DL 13.7-17.5 L (test code = 410) HEMATOCRIT (BEAKER) 24.1 % 40.1-51.0 L (test code = 411) MEAN CORPUSCULAR 89.3 fL 79.0-92.2 VOLUME (BEAKER) (test code = 753) MEAN CORPUSCULAR 29.3 pg 25.7-32.2 HEMOGLOBIN (BEAKER) (test code = 751) MEAN CORPUSCULAR 32.8 GM/DL 32.3-36.5 HEMOGLOBIN CONC (BEAKER) (test code = 752) RED CELL DISTRIBUTION 14.8 % 11.6-14.4 H WIDTH (BEAKER) (test code = 412) PLATELET COUNT 430 K/CU MM 150-[address] T (BEAKER) (test code = result Compared to 756) previous one, Clinical correl ation required. MEAN PLATELET VOLUME 8.3 fL 9.4-12.4 L (BEAKER) (test code = 754) NUCLEATED RED BLOOD 0 /100 WBC 0-0 CELLS (BEAKER) (test code = 413) POCT-GLUCOSE [id number] 21:59:00 Test Item Value Reference Range Interpretation Comments POC-GLUCOSE METER 134 mg/dL 70-110 H TESTED AT [place] [address] ([facility]) (test code = [facility] 1538) [address] POCT-GLUCOSE [id number] 17:06:00 Test Item Value Reference Range Interpretation Comments POC-GLUCOSE METER 220 mg/dL 70-110 H TESTED AT [place] [address] ([facility]) (test code = [facility] 1538) [address] POCT-GLUCOSE [id number] 12:23:00 Test Item Value Reference Range Interpretation Comments POC-GLUCOSE METER 212 mg/dL 70-110 H TESTED AT [place] [address] ([facility]) (test code = [facility] 1538) [address] BASIC METABOLIC [id number] 10:31:00 Test Item Value Reference Range Interpretation Comments SODIUM (BEAKER) 128 meq/L 136-145 L (test code = 381) POTASSIUM (BEAKER) 4.6 meq/L 3.5-5.1 (test code = 379) CHLORIDE (BEAKER) 93 meq/L 98-107 L (test code = 382) CO2 (BEAKER) (test 26 meq/L 22-29 code = 355) BLOOD UREA NITROGEN 51 mg/dL 7-21 H (BEAKER) (test code = 354) CREATININE (BEAKER) 5.31 mg/dL 0.57-1.25 H (test code = 358) GLUCOSE RANDOM 192 mg/dL 70-105 H (BEAKER) (test code = 652) CALCIUM (BEAKER) 8.1 mg/dL 8.4-10.2 L (test code = 697) EGFR (BEAKER) (test 11 mL/min/1.73 ESTIMA JAMIE GFR IS code = 1092) sq m NOT ACCURATE CREATININE CLEARANCE IN PREDICTING GLOMERULAR FILTRATION RATE . ESTIMATED GFR I S NOT APPLICABLE FOR DIALYSIS PATIEN TS. [id number] 10:28:00 Test Item Value Reference Range Interpretation Comments PHOSPHORUS (BEAKER) (test code = 4.6 mg/dL 2.3-4.7 604) [id number] 10:28:00 Test Item Value Reference Range Interpretation Comments MAGNESIUM (BEAKER) (test code = 2.3 mg/dL 1.6-2.6 627) [id number] 08:46:00 Test Item Value Reference Range Interpretation Comments HEMOGLOBIN (BEAKER) (test code = 6.9 GM/DL 13.7-17.5 L 410) POCT-GLUCOSE [id number] 08:30:00 Test Item Value Reference Range Interpretation Comments POC-GLUCOSE METER 206 mg/dL 70-110 H TESTED AT [facility] 6720 (BEAKER) (test code = [place] 1538) [address] CBC (HEMOGRAM ONLY)2017-10-27 08:06:00 Test Item Value Reference Range Interpretation Comments WHITE BLOOD CELL COUNT (BEAKER) 12.9 K/ L 3.5-10.5 H (test code = 775) RED BLOOD CELL COUNT (BEAKER) 2.37 M/ L 4.63-6.08 L (test code = 761) HEMOGLOBIN (BEAKER) (test code = 6.8 GM/DL 13.7-17.5 L 410) HEMATOCRIT (BEAKER) (test code = 21.2 % 40.1-51.0 L 411) MEAN CORPUSCULAR VOLUME (BEAKER) 89.5 fL 79.0-92.2 (test code = 753) MEAN CORPUSCULAR HEMOGLOBIN 28.7 pg 25.7-32.2 (BEAKER) (test code = 751) MEAN CORPUSCULAR HEMOGLOBIN CONC 32.1 GM/DL 32.3-36.5 L (BEAKER) (test code = 752) RED CELL DISTRIBUTION WIDTH 14.2 % 11.6-14.4 (BEAKER) (test code = 412) PLATELET COUNT (BEAKER) (test 516 K/CU MM 150-450 H code = 756) MEAN PLATELET VOLUME (BEAKER) 8.6 fL 9.4-12.4 L (test code = 754) NUCLEATED RED BLOOD CELLS 0 /100 WBC 0-0 (BEAKER) (test code = 413) RAD, CHEST, 1 VIEW, NON [id number] 06:50:00while patient is intubated or has chest tubes.Reason for exam:->chest tubesShould this be performed at the bedside?->YesFINAL REPORT RAD, CHEST, 1 VIEW, NON DEPT INDICATION: chest tubes COMPARISON:Prior day's exam FINDINGS: Portable frontal view of the chest. IMPRESSION: Support Lines: Stable right IJ central venous catheter. Lungs and pleura: Underinflated lungs with basilar subsegmental atel ectasis. Moderate left effusion. No pneumothorax.Heart and mediastinum: Stable contours. Stable surgical changes.Additional findings: None. Signed: JR Hughes Robert MDReport Verified Date/Time: 10/27/2017 06:50:17 Reading Location: [address] Body Reading Room POCT-GLUCOSE [id number] 21:40:00 Test Item Value Reference Range Interpretation Comments POC-GLUCOSE METER 206 mg/dL 70-110 H TESTED AT [facility] [address] ([facility]) (test code = SARTH[place] Yadira [facility] 1538) [id number] POCT-GLUCOSE [id number] 17:34:00 Test Item Value Reference Range Interpretation Comments POC-GLUCOSE METER 248 mg/dL 70-110 H TESTED AT [facility] [address] ([facility]) (test code = CLAIRE May [facility] 1538) [id number] POCT-GLUCOSE [id number] 11:52:00 Test Item Value Reference Range Interpretation Comments POC-GLUCOSE METER 289 mg/dL 70-110 H TESTED AT [facility] [address] (BEAKER) (test code = CLAIRE [place] 1538) [id number] BASIC METABOLIC [id number] 05:25:00 Test Item Value Reference Range Interpretation Comments SODIUM (BEAKER) 132 meq/L 136-145 L (test code = 381) POTASSIUM (BEAKER) 4.4 meq/L 3.5-5.1 (test code = 379) CHLORIDE (BEAKER) 95 meq/L 98-107 L (test code = 382) CO2 (BEAKER) (test 24 meq/L 22-29 code = 355) BLOOD UREA NITROGEN 35 mg/dL 7-21 H (BEAKER) (test code = 354) CREATININE (BEAKER) 3.94 mg/dL 0.57-1.25 H (test code = 358) GLUCOSE RANDOM 210 mg/dL 70-105 H (BEAKER) (test code = 652) CALCIUM (BEAKER) 8.1 mg/dL 8.4-10.2 L (test code = 697) EGFR (BEAKER) (test 16 mL/min/1.73 ESTIMA JAMIE GFR IS code = 1092) sq m NOT ACCURATE CREATININE CLEARANCE IN PREDICTING GLOMERULAR FILTRATION RATE . ESTIMATED GFR I S NOT APPLICABLE FOR DIALYSIS PATIEN TS. [id number] 05:23:00 Test Item Value Reference Range Interpretation Comments PHOSPHORUS (BEAKER) (test code = 3.7 mg/dL 2.3-4.7 604) [id number] 05:23:00 Test Item Value Reference Range Interpretation Comments MAGNESIUM (BEAKER) (test code = 1.9 mg/dL 1.6-2.6 627) CBC (HEMOGRAM ONLY)2017-10-26 05:01:00 Test Item Value Reference Range Interpretation Comments WHITE BLOOD CELL COUNT (BEAKER) 15.0 K/ L 3.5-10.5 H (test code = 775) RED BLOOD CELL COUNT (BEAKER) 2.52 M/ L 4.63-6.08 L (test code = 761) HEMOGLOBIN (BEAKER) (test code = 7.5 GM/DL 13.7-17.5 L 410) HEMATOCRIT (BEAKER) (test code = 22.7 % 40.1-51.0 L 411) MEAN CORPUSCULAR VOLUME (BEAKER) 90.1 fL 79.0-92.2 (test code = 753) MEAN CORPUSCULAR HEMOGLOBIN 29.8 pg 25.7-32.2 (BEAKER) (test code = 751) MEAN CORPUSCULAR HEMOGLOBIN CONC 33.0 GM/DL 32.3-36.5 (BEAKER) (test code = 752) RED CELL DISTRIBUTION WIDTH 13.8 % 11.6-14.4 (BEAKER) (test code = 412) PLATELET COUNT (BEAKER) (test 528 K/CU MM 150-450 H code = 756) MEAN PLATELET VOLUME (BEAKER) 8.6 fL 9.4-12.4 L (test code = 754) NUCLEATED RED BLOOD CELLS 0 /100 WBC 0-0 (BEAKER) (test code = 413) RAD, CHEST, 1 VIEW, NON [id number] 04:31:00Reason for exam:->SOBShould this be performed at the bedside?->YesFINAL REPORT CLINICAL INDICATION: Shortness of breath Comparison: 10/25/2017 The cardiomediastinal contours are stable. Central pulmonary vascular congestion and bilateral parenchymal and left pleural opacities are similar to previous. There is no pneumothorax. A tunneled right IJ dialysis catheter remains in place. Signed: Malena Kramer Verified Date/Time: 10/26/201704:31:31 Reading Location: [address] Reading Room RAD, CHEST, 1 VIEW, NON DEPT 2017-10-25 12:40:00Reason for exam:->s/p cardiac surgeryShould this be performed at the bedside?->YesFINAL REPORT CLINICAL HISTORY: s/p cardiac surgery TECHNIQUE: 1 view of the chest. COMPARISON: 10/22/2017 IMPRESSION: A right-sided dialysis catheter is again seen. There is a new midline lower chest tube. Pulmonary vascular congestion is again seen with left lung base consolidation and a small left effusion. There is a suspected trace right effusion. The cardiomediastinal silhouette is magnified by technique with sternotomy wires. Signed: Gay Lemus Verified Date/Time: 10/25/2017 12:40:26 Reading Location: [facility] B1 [id number] Consult Reading Room POCT- GLUCOSE [id number] 12:25:00 Test Item Value Reference Range Interpretation Comments POC-GLUCOSE METER 171 mg/dL 70-110 H TESTED AT [facility] 6720 (BEAKER) (test code = [place] 1538) [address] POTASSIUM-STAT [id number] 11:11:00 Test Item Value Reference Range Interpretation Comments POTASSIUM (BEAKER) (test code = 4.2 meq/L 3.6-5.5 379) CALCIUM, [id number] 11:11:00 Test Item Value Reference Range Interpretation Comments CALCIUM IONIZED (BEAKER) (test 0.99 mmol/L 1.12-1.27 L code = 698) PH, BLOOD (BEAKER) (test code = 7.44 1810) BLOOD GAS, [id number] 11:11:00 Test Item Value Reference Range Interpretation Comments PH ARTERIAL (BEAKER) (test code = 7.45 7.35-7.45 383) PCO2 ARTERIAL (BEAKER) (test code 39 mmHg 35-45 = 384) PO2 ARTERIAL (BEAKER) (test code = 337 mmHg 80-90 H 385) O2 SATURATION ARTERIAL (BEAKER) 99.8 % 96.0-97.0 H (test code = 386) HCO3 ARTERIAL (BEAKER) (test code 27 mmol/L 21-29 = 388) BASE EXCESS ARTERIAL (BEAKER) 2.5 mmol/L -2.0-3.0 (test code = 387) PATIENT TEMPERATURE (BEAKER) (test 36.1 C code = 1818) FIO2 (BEAKER) (test code = 1819) 100.0 % SODIUM NA-STAT [id number] 11:11:00 Test Item Value Reference Range Interpretation Comments SODIUM (BEAKER) (test code = 381) 127 meq/L 135-148 L GLUCOSE-STAT [id number] 11:11:00 Test Item Value Reference Range Interpretation Comments GLUCOSE RANDOM (BEAKER) (test code 168 mg/dL 70-110 H = 652) HGB/HCT (H&H) - STAT [id number] 11:11:00 Test Item Value Reference Range Interpretation Comments HEMOGLOBIN (BEAKER) (test code = 7.8 g/dL 13.0-16.8 L 410) HEMATOCRIT (BEAKER) (test code = 23.0 % 40.0-50.0 L 411) PLATELET AGGREGATION: DRUG [id number] 10:23:00 Test Item Value Reference Range Interpretation Comments STRONG ADP 77 % 70-94 RESULT(BEAKER) (test code = 2137) WEAK ADP RESULT(BEAKER) 62 % 60-91 (test code = 2135) ARACHADONIC ACID 7 % 63-89 L RESULT(BEAKER) (test code = 2138) PLATELET AGG DRUG Decreased response to INTERPRETATION (BEAKER) arachidonic acid (test code = 2408) suggests aspirin-like effect. PLATELET AGG DRUG Results with strong INTERPRETATION (BEAKER) ADP normal. (test code = 703655) PLATELET AGG DRUG Results with weak ADP INTERPRETATION (BEAKER) normal. (test code = 412430) [id number] Major Lucio M.D. (BEAKER) (test code = (electonic signature) 1004) PLATELET COUNT AGG 454 K/CU MM 150-450 H (BEAKER) (test code = 2656) CALCIUM, [id number] 07:44:00 Test Item Value Reference Range Interpretation Comments CALCIUM IONIZED (BEAKER) (test 1.01 mmol/L 1.12-1.27 L code = 698) PH, BLOOD (BEAKER) (test code = 7.37 1810) [id number] 06:24:00 Test Item Value Reference Range Interpretation Comments PHOSPHORUS (BEAKER) (test code = 4.3 mg/dL 2.3-4.7 604) [id number] 06:24:00 Test Item Value Reference Range Interpretation Comments MAGNESIUM (BEAKER) (test code = 2.1 mg/dL 1.6-2.6 627) COMPREHENSIVE METABOLIC [id number] 06:24:00 Test Item Value Reference Range Interpretation Comments TOTAL PROTEIN 6.4 gm/dL 6.0-8.3 (BEAKER) (test code = 770) ALBUMIN (BEAKER) 3.0 g/dL 3.5-5.0 L (test code = 1145) ALKALINE PHOSPHATASE 145 U/L 40-150 (BEAKER) (test code = 346) BILIRUBIN TOTAL 0.5 mg/dL 0.2-1.2 (BEAKER) (test code = 377) SODIUM (BEAKER) (test 130 meq/L 136-145 L code = 381) POTASSIUM (BEAKER) 4.1 meq/L 3.5-5.1 (test code = 379) CHLORIDE (BEAKER) 95 meq/L 98-107 L (test code = 382) CO2 (BEAKER) (test 25 meq/L 22-29 code = 355) BLOOD UREA NITROGEN 46 mg/dL 7-21 H (BEAKER) (test code = 354) CREATININE (BEAKER) 4.65 mg/dL 0.57-1.25 H (test code = 358) GLUCOSE RANDOM 163 mg/dL 70-105 H (BEAKER) (test code = 652) CALCIUM (BEAKER) 8.1 mg/dL 8.4-10.2 L (test code = 697) AST (SGOT) (BEAKER) 32 U/L 5-34 (test code = 353) ALT (SGPT) (BEAKER) 14 U/L 6-55 (test code = 347) EGFR (BEAKER) (test 13 mL/min/1.73 ESTIMA JAMIE GFR IS code = 1092) sq m NOT ACCURATE CREATININE CLEARANCE IN PREDICTING GLOMERULAR FILTRATION RATE . ESTIMATED GFR I S NOT APPLICABLE FOR DIALYSIS PATIEN TS. CBC W/PLT COUNT & AUTO [id number] 06:18:00 Test Item Value Reference Range Interpretation Comments WHITE BLOOD CELL COUNT (BEAKER) 12.6 K/ L 3.5-10.5 H (test code = 775) RED BLOOD CELL COUNT (BEAKER) 2.55 M/ L 4.63-6.08 L (test code = 761) HEMOGLOBIN (BEAKER) (test code = 7.5 GM/DL 13.7-17.5 L 410) HEMATOCRIT (BEAKER) (test code = 22.9 % 40.1-51.0 L 411) MEAN CORPUSCULAR VOLUME (BEAKER) 89.8 fL 79.0-92.2 (test code = 753) MEAN CORPUSCULAR HEMOGLOBIN 29.4 pg 25.7-32.2 (BEAKER) (test code = 751) MEAN CORPUSCULAR HEMOGLOBIN CONC 32.8 GM/DL 32.3-36.5 (BEAKER) (test code = 752) RED CELL DISTRIBUTION WIDTH 13.7 % 11.6-14.4 (BEAKER) (test code = 412) PLATELET COUNT (BEAKER) (test 498 K/CU MM 150-450 H code = 756) MEAN PLATELET VOLUME (BEAKER) 8.9 fL 9.4-12.4 L (test code = 754) NUCLEATED RED BLOOD CELLS 0 /100 WBC 0-0 (BEAKER) (test code = 413) NEUTROPHILS RELATIVE PERCENT 79 % (BEAKER) (test code = 429) LYMPHOCYTES RELATIVE PERCENT 8 % (BEAKER) (test code = 430) MONOCYTES RELATIVE PERCENT 10 % (BEAKER) (test code = 431) EOSINOPHILS RELATIVE PERCENT 2 % (BEAKER) (test code = 432) BASOPHILS RELATIVE PERCENT 0 % (BEAKER) (test code = 437) NEUTROPHILS ABSOLUTE COUNT 9.86 K/ L 1.78-5.38 H (BEAKER) (test code = 670) LYMPHOCYTES ABSOLUTE COUNT 1.06 K/ L 1.32-3.57 L (BEAKER) (test code = 414) MONOCYTES ABSOLUTE COUNT (BEAKER) 1.25 K/ L 0.30-0.82 H (test code = 415) EOSINOPHILS ABSOLUTE COUNT 0.20 K/ L 0.04-0.54 (BEAKER) (test code = 416) BASOPHILS ABSOLUTE COUNT (BEAKER) 0.05 K/ L 0.01-0.08 (test code = 417) IMMATURE GRANULOCYTES-RELATIVE 1 % 0-1 PERCENT (BEAKER) (test code = 2801) POCT-GLUCOSE [id number] 06:13:00 Test Item Value Reference Range Interpretation Comments POC-GLUCOSE METER 207 mg/dL 70-110 H TESTED AT [facility] (test code = CLAIRE May [place] 1538) [address] POCT-GLUCOSE [id number] 21:34:00 Test Item Value Reference Range Interpretation Comments POC-GLUCOSE METER 201 mg/dL 70-110 H TESTED AT [facility] 6720 (BEAKER) (test code = CLAIRE May [place] 1538) [address] POCT-GLUCOSE [id number] 15:51:00 Test Item Value Reference Range Interpretation Comments POC-GLUCOSE METER 122 mg/dL 70-110 H TESTED AT [facility] 6720 (BEAKER) (test code = CLAIRE May [place] 1538) [address] POCT-GLUCOSE [id number] 11:08:00 Test Item Value Reference Range Interpretation Comments POC-GLUCOSE METER 235 mg/dL 70-110 H TESTED AT [facility] 6720 (BEAKER) (test code = CLAIRE May [place] 1538) [address] POCT-GLUCOSE [id number] 06:11:00 Test Item Value Reference Range Interpretation Comments POC-GLUCOSE METER 158 mg/dL 70-110 H TESTED AT [place] [address] (BEAKER) (test code = CLAIRE May [facility] 1538) [address] CBC W/PLT COUNT & AUTO [id number] 06:00:00 Test Item Value Reference Range Interpretation Comments WHITE BLOOD CELL COUNT (BEAKER) 12.0 K/ L 3.5-10.5 H (test code = 775) RED BLOOD CELL COUNT (BEAKER) 2.67 M/ L 4.63-6.08 L (test code = 761) HEMOGLOBIN (BEAKER) (test code = 7.9 GM/DL 13.7-17.5 L 410) HEMATOCRIT (BEAKER) (test code = 24.4 % 40.1-51.0 L 411) MEAN CORPUSCULAR VOLUME (BEAKER) 91.4 fL 79.0-92.2 (test code = 753) MEAN CORPUSCULAR HEMOGLOBIN 29.6 pg 25.7-32.2 (BEAKER) (test code = 751) MEAN CORPUSCULAR HEMOGLOBIN CONC 32.4 GM/DL 32.3-36.5 (BEAKER) (test code = 752) RED CELL DISTRIBUTION WIDTH 13.5 % 11.6-14.4 (BEAKER) (test code = 412) PLATELET COUNT (BEAKER) (test 486 K/CU MM 150-450 H code = 756) MEAN PLATELET VOLUME (BEAKER) 8.9 fL 9.4-12.4 L (test code = 754) NUCLEATED RED BLOOD CELLS 0 /100 WBC 0-0 (BEAKER) (test code = 413) NEUTROPHILS RELATIVE PERCENT 77 % (BEAKER) (test code = 429) LYMPHOCYTES RELATIVE PERCENT 8 % (BEAKER) (test code = 430) MONOCYTES RELATIVE PERCENT 12 % (BEAKER) (test code = 431) EOSINOPHILS RELATIVE PERCENT 2 % (BEAKER) (test code = 432) BASOPHILS RELATIVE PERCENT 1 % (BEAKER) (test code = 437) NEUTROPHILS ABSOLUTE COUNT 9.19 K/ L 1.78-5.38 H (BEAKER) (test code = 670) LYMPHOCYTES ABSOLUTE COUNT 0.96 K/ L 1.32-3.57 L (BEAKER) (test code = 414) MONOCYTES ABSOLUTE COUNT (BEAKER) 1.45 K/ L 0.30-0.82 H (test code = 415) EOSINOPHILS ABSOLUTE COUNT 0.19 K/ L 0.04-0.54 (BEAKER) (test code = 416) BASOPHILS ABSOLUTE COUNT (BEAKER) 0.06 K/ L 0.01-0.08 (test code = 417) IMMATURE GRANULOCYTES-RELATIVE 1 % 0-1 PERCENT (BEAKER) (test code = 2801) POCT-GLUCOSE [id number] 00:51:00 Test Item Value Reference Range Interpretation Comments POC-GLUCOSE METER 228 mg/dL 70-110 H TESTED AT [place] [address] ([facility]) (test code = [facility] 1538) [address] POCT-GLUCOSE [id number] 20:38:00 Test Item Value Reference Range Interpretation Comments POC-GLUCOSE METER 181 mg/dL 70-110 H TESTED AT [place] [address] ([facility]) (test code = [facility] 1538) [address] POCT-GLUCOSE [id number] 12:10:00 Test Item Value Reference Range Interpretation Comments POC-GLUCOSE METER 153 mg/dL 70-110 H TESTED AT [place] [address] ([facility]) (test code = [facility] 1538) [address] POCT-GLUCOSE [id number] 06:24:00 Test Item Value Reference Range Interpretation Comments POC-GLUCOSE METER 108 mg/dL 70-110 TESTED AT [place] [address] ([facility]) (test code = [facility] 1538) [address] CALCIUM, [id number] 05:51:00 Test Item Value Reference Range Interpretation Comments CALCIUM IONIZED ([facility]) (test 1.02 mmol/L 1.12-1.27 L code = 698) PH, BLOOD ([facility]) (test code = 7.35 5080) COMPREHENSIVE METABOLIC [id number] 04:27:00 Test Item Value Reference Range Interpretation Comments TOTAL PROTEIN 6.3 gm/dL 6.0-8.3 (BEAKER) (test code = 770) ALBUMIN (BEAKER) 3.0 g/dL 3.5-5.0 L (test code = 1145) ALKALINE PHOSPHATASE 125 U/L 40-150 (BEAKER) (test code = 346) BILIRUBIN TOTAL 0.5 mg/dL 0.2-1.2 (BEAKER) (test code = 377) SODIUM (BEAKER) (test 133 meq/L 136-145 L code = 381) POTASSIUM (BEAKER) 4.2 meq/L 3.5-5.1 (test code = 379) CHLORIDE (BEAKER) 97 meq/L 98-107 L (test code = 382) CO2 (BEAKER) (test 26 meq/L 22-29 code = 355) BLOOD UREA NITROGEN 45 mg/dL 7-21 H (BEAKER) (test code = 354) CREATININE (BEAKER) 5.20 mg/dL 0.57-1.25 H (test code = 358) GLUCOSE RANDOM 101 mg/dL 70-105 (BEAKER) (test code = 652) CALCIUM (BEAKER) 8.4 mg/dL 8.4-10.2 (test code = 697) AST (SGOT) (BEAKER) 19 U/L 5-34 (test code = 353) ALT (SGPT) (BEAKER) 8 U/L 6-55 (test code = 347) EGFR (BEAKER) (test 11 mL/min/1.73 ESTIMA JAMIE GFR IS code = 1092) sq m NOT ACCURATE CREATININE CLEARANCE IN PREDICTING GLOMERULAR FILTRATION RATE . ESTIMATED GFR I S NOT APPLICABLE FOR DIALYSIS PATIEN TS. [id number] 04:18:00 Test Item Value Reference Range Interpretation Comments PHOSPHORUS (BEAKER) (test code = 4.6 mg/dL 2.3-4.7 604) [id number] 04:18:00 Test Item Value Reference Range Interpretation Comments MAGNESIUM (BEAKER) (test code = 2.1 mg/dL 1.6-2.6 627) CBC W/PLT COUNT & AUTO [id number] 04:12:00 Test Item Value Reference Range Interpretation Comments WHITE BLOOD CELL COUNT (BEAKER) 12.2 K/ L 3.5-10.5 H (test code = 775) RED BLOOD CELL COUNT (BEAKER) 2.69 M/ L 4.63-6.08 L (test code = 761) HEMOGLOBIN (BEAKER) (test code = 7.8 GM/DL 13.7-17.5 L 410) HEMATOCRIT (BEAKER) (test code = 24.2 % 40.1-51.0 L 411) MEAN CORPUSCULAR VOLUME (BEAKER) 90.0 fL 79.0-92.2 (test code = 753) MEAN CORPUSCULAR HEMOGLOBIN 29.0 pg 25.7-32.2 (BEAKER) (test code = 751) MEAN CORPUSCULAR HEMOGLOBIN CONC 32.2 GM/DL 32.3-36.5 L (BEAKER) (test code = 752) RED CELL DISTRIBUTION WIDTH 13.5 % 11.6-14.4 (BEAKER) (test code = 412) PLATELET COUNT (BEAKER) (test 438 K/CU MM 150-450 code = 756) MEAN PLATELET VOLUME (BEAKER) 8.4 fL 9.4-12.4 L (test code = 754) NUCLEATED RED BLOOD CELLS 0 /100 WBC 0-0 (BEAKER) (test code = 413) NEUTROPHILS RELATIVE PERCENT 76 % (BEAKER) (test code = 429) LYMPHOCYTES RELATIVE PERCENT 9 % (BEAKER) (test code = 430) MONOCYTES RELATIVE PERCENT 12 % (BEAKER) (test code = 431) EOSINOPHILS RELATIVE PERCENT 2 % (BEAKER) (test code = 432) BASOPHILS RELATIVE PERCENT 1 % (BEAKER) (test code = 437) NEUTROPHILS ABSOLUTE COUNT 9.28 K/ L 1.78-5.38 H (BEAKER) (test code = 670) LYMPHOCYTES ABSOLUTE COUNT 1.12 K/ L 1.32-3.57 L (BEAKER) (test code = 414) MONOCYTES ABSOLUTE COUNT (BEAKER) 1.42 K/ L 0.30-0.82 H (test code = 415) EOSINOPHILS ABSOLUTE COUNT 0.28 K/ L 0.04-0.54 (BEAKER) (test code = 416) BASOPHILS ABSOLUTE COUNT (BEAKER) 0.06 K/ L 0.01-0.08 (test code = 417) IMMATURE GRANULOCYTES-RELATIVE 1 % 0-1 PERCENT (KURT[place]) (test code = 2801) POCT-GLUCOSE [id number] 20:51:00 Test Item Value Reference Range Interpretation Comments POC-GLUCOSE METER 144 mg/dL 70-110 H TESTED AT [facility] 6720 ([place]) (test code = CLAIRE May [facility] 1538) [address] POCT-GLUCOSE [id number] 16:24:00 Test Item Value Reference Range Interpretation Comments POC-GLUCOSE METER 162 mg/dL 70-110 H TESTED AT [facility] 6720 ([facility]) (test code = CLAIRE May [facility] 1538) [address] ANG, TUNNELED CATHETER [id number] 13:53:00Reason for exam:->need HD FINAL REPORT Tunneled dialysis catheter insertion: Pertinent clinical information: Renal failure Modality: Sonography and fluoroscopy Conscious Sedation: Versed 1 mg and fentanyl 50 mcg intravenouslyDuring the procedure with conscious sedation, the patient was monitored continuously with pulse oximetry and electrocardiography by the attending physician and registered nurse. Physician Patient face to face intraservice time: 30 minutes Antibiotics: Ancef 1 g intravenously Anesthesia: Two percent Lidocaine injected subcutaneously at the insertion site and tunnel. Approach: Right internal jugular vein Fluoro time (in minutes) and number of images: 0.3 minutes. Total dose 60 mGy. Four images For maximum sterile barrier protection a mask, cap, sterile gloves, sterile drape, sterile gown, and a cutaneous antiseptic was utilized. Technique: After informed written consent was obtained, the patient was prepped and draped in the usual sterile manner. Access was obtained using sonographic guidance. Ultrasound was utilized to decrease the risk of hematoma and avoid unnecessary punctures. Ultrasound documented the vein to be patent. The right internal jugular vein was cathet erized utilizing ultrasound guidance and the localization image was saved to PACS. A guide wire was advanced centrally. A 20 cm Duraflow catheter was advanced with its distal tip terminating in theright atrium as documented by fluoroscopy. The ports were flushed and aspirated easily following placement. A subcutaneous tunnel was created in the right anterior chest wall by blunt dissection. Thecatheter was sutured to the skin to secure its placement. A small jugular incision site was closed using 2.0 chromic suture. Vital signs were monitored throughout the procedure by a nurse, and remained stable. The patient tolerated the procedure well and left the department in the same condition. Results: Spot radiograph of the chest demonstrates the new dialysis catheter to lie in the expected position with its tip overlying the right atrium. Impression: Successful, uncomplicated placement of aright internal jugular tunneled dialysis catheter using ultrasound. Fluoroscopy guidance was also utilized . Signed: Mellissa Allen Verified Date/Time: 10/22/2017 13:53:30 Reading Location: [facility] Radiology Reading Room POCT-GLUCOSE [id number] 12:23:00 Test Item Value Reference Range Interpretation Comments POC-GLUCOSE METER 189 mg/dL 70-110 H TESTED AT [facility] 6720 ([facility]) (test code = [place] 1538) [address] TROPONIN [id number] 11:22:00 Test Item Value Reference Range Interpretation Comments TROPONIN I ([facility]) (test code = 0.16 ng/mL 0.00-0.03 H 397) Troponin I (TnI) levels must be interpreted in the context of the presenting symptoms and the clinical findings. Elevated TnI levels indicate myocardial damage, but are not specific for ischemic heart disease. Elevated TnI levels are seen in patients with other cardiac conditions (including myocarditis and congestive heart failure), and slight TnI elevations occur in patients with other conditions, including sepsis, renal failure, acidosis, acute neurological disease, and persistent tachyarrhythmia.CREATINE KINASE (CK), TOTAL AND MB 2017-10-22 11:08:00 Test Item Value Reference Range Interpretation Comments CREATINE KINASE TOTAL (BEAKER) 87 U/L 29-200 (test code = 380) CREATINE KINASE-MB (BEAKER) (test 1.3 ng/mL 0.0-6.6 code = 750) CREATINE KINASE-MB INDEX ([facility]) 1.5 % (test code = 395) CK-MB Reference Range:<6.7 Normal6.7-10.0 Borderline>10.0 AbnormalRAD, CHEST, 1 VIEW, NON [id number] 09:34:00Reason for exam:- >chest painShould this be performed at the bedside?->YesFINAL REPORT CLINICAL HISTORY: chest pain TECHNIQUE: 1 view of the chest. COMPARISON: 10/14/2017 IMPRESSION: The right central line is unchanged. There is new or increased left lower lung consolidation with a small left effusion. A trace right effusion is again suspected. The cardiomediastinal silhouette is magnified by technique with sternotomy wires. Signed: Gay Lemus MDReport Verified Date/Time: 10/22/2017 09:34:12 Reading Location: [facility] Radiology Reading Room POCT-GLUCOSE [id number] 08:21:00 Test Item Value Reference Range Interpretation Comments POC-GLUCOSE METER 232 mg/dL 70-110 H TESTED AT [place] [address] ([facility]) (test code = CLAIRE May [facility] 1538) [address] POCT-GLUCOSE [id number] 07:04:00 Test Item Value Reference Range Interpretation Comments POC-GLUCOSE METER 200 mg/dL 70-110 H TESTED AT [place] [address] ([facility]) (test code = CLAIRE May [facility] 1538) [address] POCT-GLUCOSE [id number] 22:00:00 Test Item Value Reference Range Interpretation Comments POC-GLUCOSE METER 176 mg/dL 70-110 H TESTED AT [place] [address] ([facility]) (test code = CLAIRE May [facility] 1538) [address] POCT-GLUCOSE [id number] 16:37:00 Test Item Value Reference Range Interpretation Comments POC-GLUCOSE METER 160 mg/dL 70-110 H TESTED AT [place] [address] ([facility]) (test code = CLAIRE May [facility] 1538) [address] POCT-GLUCOSE [id number] 10:59:00 Test Item Value Reference Range Interpretation Comments POC-GLUCOSE METER 232 mg/dL 70-110 H TESTED AT [place] [address] ([facility]) (test code = CLAIRE May [place] 1538) [address] POCT-GLUCOSE [id number] 05:52:00 Test Item Value Reference Range Interpretation Comments POC-GLUCOSE METER 141 mg/dL 70-110 H TESTED AT [place] [address] ([facility]) (test code = CLAIRE May [place] 1538) [address] POCT-GLUCOSE [id number] 20:45:00 Test Item Value Reference Range Interpretation Comments POC-GLUCOSE METER 165 mg/dL 70-110 H TESTED AT [facility] 6720 (BEAKER) (test code = CLAIRE May [facility] 1538) [address] POCT-GLUCOSE [id number] 17:26:00 Test Item Value Reference Range Interpretation Comments POC-GLUCOSE METER 148 mg/dL 70-110 H TESTED AT [place] [address] (BEAKER) (test code = [facility] 1538) [address] POCT-GLUCOSE [id number] 11:15:00 Test Item Value Reference Range Interpretation Comments POC-GLUCOSE METER 227 mg/dL 70-110 H TESTED AT [place] [address] (BEAKER) (test code = [facility] 1538) [address] CALCIUM, [id number] 08:01:00 Test Item Value Reference Range Interpretation Comments CALCIUM IONIZED (BEAKER) (test 1.00 mmol/L 1.12-1.27 L code = 698) PH, BLOOD (BEAKER) (test code = 7.35 1810) POCT-GLUCOSE [id number] 07:17:00 Test Item Value Reference Range Interpretation Comments POC-GLUCOSE METER 152 mg/dL 70-110 H TESTED AT [place] [id number] (BEAKER) (test code = [facility] 1538) [id number] COMPREHENSIVE METABOLIC [id number] 07:00:00 Test Item Value Reference Range Interpretation Comments TOTAL PROTEIN 6.2 gm/dL 6.0-8.3 (BEAKER) (test code = 770) ALBUMIN (BEAKER) 3.0 g/dL 3.5-5.0 L (test code = 1145) ALKALINE PHOSPHATASE 112 U/L 40-150 (BEAKER) (test code = 346) BILIRUBIN TOTAL 0.5 mg/dL 0.2-1.2 (BEAKER) (test code = 377) SODIUM (BEAKER) (test 134 meq/L 136-145 L code = 381) POTASSIUM (BEAKER) 3.8 meq/L 3.5-5.1 (test code = 379) CHLORIDE (BEAKER) 97 meq/L 98-107 L (test code = 382) CO2 (BEAKER) (test 27 meq/L 22-29 code = 355) BLOOD UREA NITROGEN 44 mg/dL 7-21 H (BEAKER) (test code = 354) CREATININE (BEAKER) 4.72 mg/dL 0.57-1.25 H (test code = 358) GLUCOSE RANDOM 120 mg/dL 70-105 H (BEAKER) (test code = 652) CALCIUM (BEAKER) 8.3 mg/dL 8.4-10.2 L (test code = 697) AST (SGOT) (BEAKER) 17 U/L 5-34 (test code = 353) ALT (SGPT) (BEAKER) 8 U/L 6-55 (test code = 347) EGFR (BEAKER) (test 13 mL/min/1.73 ESTIMA JAMIE GFR IS code = 1092) sq m NOT ACCURATE CREATININE CLEARANCE IN PREDICTING GLOMERULAR FILTRATION RATE . ESTIMATED GFR I S NOT APPLICABLE FOR DIALYSIS PATIEN TS. [id number] 06:59:00 Test Item Value Reference Range Interpretation Comments PHOSPHORUS (BEAKER) (test code = 4.4 mg/dL 2.3-4.7 604) [id number] 06:59:00 Test Item Value Reference Range Interpretation Comments MAGNESIUM (BEAKER) (test code = 2.0 mg/dL 1.6-2.6 627) CBC W/PLT COUNT & AUTO [id number] 06:16:00 Test Item Value Reference Range Interpretation Comments WHITE BLOOD CELL COUNT (BEAKER) 10.9 K/ L 3.5-10.5 H (test code = 775) RED BLOOD CELL COUNT (BEAKER) 2.76 M/ L 4.63-6.08 L (test code = 761) HEMOGLOBIN (BEAKER) (test code = 8.1 GM/DL 13.7-17.5 L 410) HEMATOCRIT (BEAKER) (test code = 25.0 % 40.1-51.0 L 411) MEAN CORPUSCULAR VOLUME (BEAKER) 90.6 fL 79.0-92.2 (test code = 753) MEAN CORPUSCULAR HEMOGLOBIN 29.3 pg 25.7-32.2 (BEAKER) (test code = 751) MEAN CORPUSCULAR HEMOGLOBIN CONC 32.4 GM/DL 32.3-36.5 (BEAKER) (test code = 752) RED CELL DISTRIBUTION WIDTH 13.9 % 11.6-14.4 (BEAKER) (test code = 412) PLATELET COUNT (BEAKER) (test 417 K/CU MM 150-450 code = 756) MEAN PLATELET VOLUME (BEAKER) 8.7 fL 9.4-12.4 L (test code = 754) NUCLEATED RED BLOOD CELLS 0 /100 WBC 0-0 (BEAKER) (test code = 413) NEUTROPHILS RELATIVE PERCENT 75 % (BEAKER) (test code = 429) LYMPHOCYTES RELATIVE PERCENT 9 % (BEAKER) (test code = 430) MONOCYTES RELATIVE PERCENT 12 % (BEAKER) (test code = 431) EOSINOPHILS RELATIVE PERCENT 3 % (BEAKER) (test code = 432) BASOPHILS RELATIVE PERCENT 0 % (BEAKER) (test code = 437) NEUTROPHILS ABSOLUTE COUNT 8.17 K/ L 1.78-5.38 H (BEAKER) (test code = 670) LYMPHOCYTES ABSOLUTE COUNT 0.97 K/ L 1.32-3.57 L (BEAKER) (test code = 414) MONOCYTES ABSOLUTE COUNT (BEAKER) 1.29 K/ L 0.30-0.82 H (test code = 415) EOSINOPHILS ABSOLUTE COUNT 0.34 K/ L 0.04-0.54 (BEAKER) (test code = 416) BASOPHILS ABSOLUTE COUNT (BEAKER) 0.04 K/ L 0.01-0.08 (test code = 417) IMMATURE GRANULOCYTES-RELATIVE 1 % 0-1 PERCENT (BEAKER) (test code = 2801) PROTHROMBIN [id number] 06:15:00 Test Item Value Reference Range Interpretation Comments PROTIME (BEAKER) (test code = 14.7 seconds 11.7-14.7 759) INR (BEAKER) (test code = 370) 1.2 <=5.9 RECOMMENDED COUMADIN/WARFARIN INR THERAPY RANGESSTANDARD DOSE: 2.0 - 3.0 Includes: PROPHYLAXIS forvenous thrombosis, systemic embolization; TREATMENT for venous thrombosis and/or pulmonary embolus.HIGH RISK: Target INR is 2.5-3.5 for patients with mechanical heart valves.POCT-GLUCOSE [id number] 21:16:00 Test Item Value Reference Range Interpretation Comments POC-GLUCOSE METER 178 mg/dL 70-110 H TESTED AT [facility] ([facility]) (test code = CLAIRE [facility] 1538) [id number] POCT-GLUCOSE [id number] 17:06:00 Test Item Value Reference Range Interpretation Comments POC-GLUCOSE METER 251 mg/dL 70-110 H TESTED AT [facility] (BEAKER) (test code = [facility] 1538) [address] POCT-GLUCOSE [id number] 12:21:00 Test Item Value Reference Range Interpretation Comments POC-GLUCOSE METER 121 mg/dL 70-110 H TESTED AT [facility] (BEAKER) (test code = [facility] 1538) [address] POCT-GLUCOSE [id number] 08:28:00 Test Item Value Reference Range Interpretation Comments POC-GLUCOSE METER 126 mg/dL 70-110 H TESTED AT [facility] (BEAKER) (test code = [facility] 1538) [address] CALCIUM, [id number] 06:03:00 Test Item Value Reference Range Interpretation Comments CALCIUM IONIZED (BEAKER) (test 1.05 mmol/L 1.12-1.27 L code = 698) PH, BLOOD (BEAKER) (test code = 7.36 7150) COMPREHENSIVE METABOLIC [id number] 05:00:00 Test Item Value Reference Range Interpretation Comments TOTAL PROTEIN 5.7 gm/dL 6.0-8.3 L (BEAKER) (test code = 770) ALBUMIN (BEAKER) 2.8 g/dL 3.5-5.0 L (test code = 1145) ALKALINE PHOSPHATASE 101 U/L 40-150 (BEAKER) (test code = 346) BILIRUBIN TOTAL 0.5 mg/dL 0.2-1.2 (BEAKER) (test code = 377) SODIUM (BEAKER) (test 136 meq/L 136-145 code = 381) POTASSIUM (BEAKER) 3.8 meq/L 3.5-5.1 (test code = 379) CHLORIDE (BEAKER) 99 meq/L 98-107 (test code = 382) CO2 (BEAKER) (test 27 meq/L 22-29 code = 355) BLOOD UREA NITROGEN 32 mg/dL 7-21 H (BEAKER) (test code = 354) CREATININE (BEAKER) 3.43 mg/dL 0.57-1.25 H (test code = 358) GLUCOSE RANDOM 134 mg/dL 70-105 H (BEAKER) (test code = 652) CALCIUM (BEAKER) 8.4 mg/dL 8.4-10.2 (test code = 697) AST (SGOT) (BEAKER) 17 U/L 5-34 (test code = 353) ALT (SGPT) (BEAKER) 9 U/L 6-55 (test code = 347) EGFR (BEAKER) (test 19 mL/min/1.73 ESTIMA JAMIE GFR IS code = 1092) sq m NOT ACCURATE CREATININE CLEARANCE IN PREDICTING GLOMERULAR FILTRATION RATE . ESTIMATED GFR I S NOT APPLICABLE FOR DIALYSIS PATIEN TS. [id number] 04:57:00 Test Item Value Reference Range Interpretation Comments PHOSPHORUS (BEAKER) (test code = 3.6 mg/dL 2.3-4.7 604) [id number] 04:57:00 Test Item Value Reference Range Interpretation Comments MAGNESIUM (BEAKER) (test code = 2.0 mg/dL 1.6-2.6 627) [id number] 04:43:00 Test Item Value Reference Range Interpretation Comments PROTIME (BEAKER) (test code = 15.4 seconds 11.7-14.7 H 759) INR (BEAKER) (test code = 370) 1.2 <=5.9 PARTIAL THROMBOPLASTIN TIME 42.8 seconds 22.5-36.0 H (BEAKER) (test code = 760) RECOMMENDED COUMADIN/WARFARIN INR THERAPY RANGESSTANDARD DOSE: 2.0 - 3.0 Includes: PROPHYLAXIS forvenous thrombosis, systemic embolization; TREATMENT for venous thrombosis and/or pulmonary embolus.HIGH RISK: Target INR is 2.5-3.5 for patients with mechanical heart valves.CBC W/PLT COUNT & AUTO DIFFERENTIAL 2017-10-19 04:37:00 Test Item Value Reference Range Interpretation Comments WHITE BLOOD CELL COUNT (BEAKER) 10.0 K/ L 3.5-10.5 (test code = 775) RED BLOOD CELL COUNT (BEAKER) 2.61 M/ L 4.63-6.08 L (test code = 761) HEMOGLOBIN (BEAKER) (test code = 7.6 GM/DL 13.7-17.5 L 410) HEMATOCRIT (BEAKER) (test code = 23.3 % 40.1-51.0 L 411) MEAN CORPUSCULAR VOLUME (BEAKER) 89.3 fL 79.0-92.2 (test code = 753) MEAN CORPUSCULAR HEMOGLOBIN 29.1 pg 25.7-32.2 (BEAKER) (test code = 751) MEAN CORPUSCULAR HEMOGLOBIN CONC 32.6 GM/DL 32.3-36.5 (BEAKER) (test code = 752) RED CELL DISTRIBUTION WIDTH 13.9 % 11.6-14.4 (BEAKER) (test code = 412) PLATELET COUNT (BEAKER) (test 301 K/CU MM 150-450 code = 756) MEAN PLATELET VOLUME (BEAKER) 8.6 fL 9.4-12.4 L (test code = 754) NUCLEATED RED BLOOD CELLS 0 /100 WBC 0-0 (BEAKER) (test code = 413) NEUTROPHILS RELATIVE PERCENT 77 % (BEAKER) (test code = 429) LYMPHOCYTES RELATIVE PERCENT 6 % (BEAKER) (test code = 430) MONOCYTES RELATIVE PERCENT 13 % (BEAKER) (test code = 431) EOSINOPHILS RELATIVE PERCENT 3 % (BEAKER) (test code = 432) BASOPHILS RELATIVE PERCENT 0 % (BEAKER) (test code = 437) NEUTROPHILS ABSOLUTE COUNT 7.72 K/ L 1.78-5.38 H (BEAKER) (test code = 670) LYMPHOCYTES ABSOLUTE COUNT 0.64 K/ L 1.32-3.57 L (BEAKER) (test code = 414) MONOCYTES ABSOLUTE COUNT (BEAKER) 1.27 K/ L 0.30-0.82 H (test code = 415) EOSINOPHILS ABSOLUTE COUNT 0.27 K/ L 0.04-0.54 (BEAKER) (test code = 416) BASOPHILS ABSOLUTE COUNT (BEAKER) 0.04 K/ L 0.01-0.08 (test code = 417) IMMATURE GRANULOCYTES-RELATIVE 1 % 0-1 PERCENT (BEAKER) (test code = 2801) POCT-GLUCOSE [id number] 21:24:00 Test Item Value Reference Range Interpretation Comments POC-GLUCOSE METER 162 mg/dL 70-110 H TESTED AT [place] [address] (BEAKER) (test code = CLAIRE [facility]OFF[facility] 1538) [address] POCT-GLUCOSE [id number] 18:15:00 Test Item Value Reference Range Interpretation Comments POC-GLUCOSE METER 118 mg/dL 70-110 H [facility] [place] [address] [facility] (test code = [facility] 1538) [address] POCT-GLUCOSE [id number] 17:05:00 Test Item Value Reference Range Interpretation Comments POC-GLUCOSE METER 130 mg/dL 70-110 H TESTED AT [place] [address] (BEAKER) (test code = [facility] 1538) [address] BASIC METABOLIC [id number] 16:07:00 Test Item Value Reference Range Interpretation Comments SODIUM (BEAKER) 133 meq/L 136-145 L (test code = 381) POTASSIUM (BEAKER) 3.6 meq/L 3.5-5.1 (test code = 379) CHLORIDE (BEAKER) 96 meq/L 98-107 L (test code = 382) CO2 (BEAKER) (test 22 meq/L 22-29 code = 355) BLOOD UREA NITROGEN 51 mg/dL 7-21 H (BEAKER) (test code = 354) CREATININE (BEAKER) 4.17 mg/dL 0.57-1.25 H (test code = 358) GLUCOSE RANDOM 126 mg/dL 70-105 H (BEAKER) (test code = 652) CALCIUM (BEAKER) 7.9 mg/dL 8.4-10.2 L (test code = 697) EGFR (BEAKER) (test 15 mL/min/1.73 ESTIMA JAMIE GFR IS code = 1092) sq m NOT ACCURATE CREATININE CLEARANCE IN PREDICTING GLOMERULAR FILTRATION RATE . ESTIMATED GFR I S NOT APPLICABLE FOR DIALYSIS PATIEN TS. POCT-GLUCOSE [id number] 11:54:00 Test Item Value Reference Range Interpretation Comments POC-GLUCOSE METER 194 mg/dL 70-110 H [facility] [place] [address] [facility] (test code = [facility] 1538) [address] POCT-GLUCOSE [id number] 07:48:00 Test Item Value Reference Range Interpretation Comments POC-GLUCOSE METER 164 mg/dL 70-110 H TEST[facility] AT [place] [address] ([facility] (test code = [facility] 1538) [address] CALCIUM, [id number] 03:46:00 Test Item Value Reference Range Interpretation Comments CALCIUM IONIZED (BEAKER) (test 0.94 mmol/L 1.12-1.27 L code = 698) PH, BLOOD (BEAKER) (test code = 7.38 1810) [id number] 03:38:00 Test Item Value Reference Range Interpretation Comments PHOSPHORUS (BEAKER) (test code = 4.1 mg/dL 2.3-4.7 604) [id number] 03:38:00 Test Item Value Reference Range Interpretation Comments MAGNESIUM (BEAKER) (test code = 2.1 mg/dL 1.6-2.6 627) PROTHROMBIN [id number] 03:22:00 Test Item Value Reference Range Interpretation Comments PROTIME (BEAKER) (test code = 14.7 seconds 11.7-14.7 759) INR (BEAKER) (test code = 370) 1.2 <=5.9 RECOMMENDED COUMADIN/WARFARIN INR THERAPY RANGESSTANDARD DOSE: 2.0 - 3.0 Includes: PROPHYLAXIS forvenous thrombosis, systemic embolization; TREATMENT for venous thrombosis and/or pulmonary embolus.HIGH RISK: Target INR is 2.5-3.5 for patients with mechanical heart valves.CBC W/PLT COUNT & AUTO DIFFERENTIAL 2017-10-18 03:19:00 Test Item Value Reference Range Interpretation Comments WHITE BLOOD CELL COUNT (BEAKER) 11.2 K/ L 3.5-10.5 H (test code = 775) RED BLOOD CELL COUNT (BEAKER) 2.84 M/ L 4.63-6.08 L (test code = 761) HEMOGLOBIN (BEAKER) (test code = 8.4 GM/DL 13.7-17.5 L 410) HEMATOCRIT (BEAKER) (test code = 25.0 % 40.1-51.0 L 411) MEAN CORPUSCULAR VOLUME (BEAKER) 88.0 fL 79.0-92.2 (test code = 753) MEAN CORPUSCULAR HEMOGLOBIN 29.6 pg 25.7-32.2 (BEAKER) (test code = 751) MEAN CORPUSCULAR HEMOGLOBIN CONC 33.6 GM/DL 32.3-36.5 (BEAKER) (test code = 752) RED CELL DISTRIBUTION WIDTH 13.8 % 11.6-14.4 (BEAKER) (test code = 412) PLATELET COUNT (BEAKER) (test 310 K/CU MM 150-450 code = 756) MEAN PLATELET VOLUME (BEAKER) 8.6 fL 9.4-12.4 L (test code = 754) NUCLEATED RED BLOOD CELLS 0 /100 WBC 0-0 (BEAKER) (test code = 413) NEUTROPHILS RELATIVE PERCENT 74 % (BEAKER) (test code = 429) LYMPHOCYTES RELATIVE PERCENT 7 % (BEAKER) (test code = 430) MONOCYTES RELATIVE PERCENT 13 % (BEAKER) (test code = 431) EOSINOPHILS RELATIVE PERCENT 5 % (BEAKER) (test code = 432) BASOPHILS RELATIVE PERCENT 0 % (BEAKER) (test code = 437) NEUTROPHILS ABSOLUTE COUNT 8.29 K/ L 1.78-5.38 H (BEAKER) (test code = 670) LYMPHOCYTES ABSOLUTE COUNT 0.77 K/ L 1.32-3.57 L (BEAKER) (test code = 414) MONOCYTES ABSOLUTE COUNT (BEAKER) 1.47 K/ L 0.30-0.82 H (test code = 415) EOSINOPHILS ABSOLUTE COUNT 0.50 K/ L 0.04-0.54 (BEAKER) (test code = 416) BASOPHILS ABSOLUTE COUNT (BEAKER) 0.04 K/ L 0.01-0.08 (test code = 417) IMMATURE GRANULOCYTES-RELATIVE 1 % 0-1 PERCENT (BEAKER) (test code = 2801) POCT-GLUCOSE [id number] 20:49:00 Test Item Value Reference Range Interpretation Comments POC-GLUCOSE METER 207 mg/dL 70-110 H TESTED AT [place] [address] ([facility]) (test code = CLAIRE May [facility] 1538) [address] POCT-GLUCOSE [id number] 17:38:00 Test Item Value Reference Range Interpretation Comments POC-GLUCOSE METER 173 mg/dL 70-110 H TESTED AT [place] [address] ([facility]) (test code = CLAIRE May [facility] 1538) [address] POCT-GLUCOSE [id number] 12:08:00 Test Item Value Reference Range Interpretation Comments POC-GLUCOSE METER 298 mg/dL 70-110 H TESTED AT [place] [address] ([facility]) (test code = CLAIRE May [facility] 1538) [address] POCT-GLUCOSE [id number] 07:45:00 Test Item Value Reference Range Interpretation Comments POC-GLUCOSE METER 156 mg/dL 70-110 H TESTED AT [place] [address] ([facility]) (test code = [place] 1538) [address] COMPREHENSIVE METABOLIC [id number] 04:14:00 Test Item Value Reference Range Interpretation Comments TOTAL PROTEIN 5.6 gm/dL 6.0-8.3 L (BEAKER) (test code = 770) ALBUMIN (BEAKER) 2.9 g/dL 3.5-5.0 L (test code = 1145) ALKALINE PHOSPHATASE 93 U/L 40-150 (BEAKER) (test code = 346) BILIRUBIN TOTAL 0.5 mg/dL 0.2-1.2 (BEAKER) (test code = 377) SODIUM (BEAKER) (test 133 meq/L 136-145 L code = 381) POTASSIUM (BEAKER) 3.5 meq/L 3.5-5.1 (test code = 379) CHLORIDE (BEAKER) 97 meq/L 98-107 L (test code = 382) CO2 (BEAKER) (test 28 meq/L 22-29 code = 355) BLOOD UREA NITROGEN 40 mg/dL 7-21 H (BEAKER) (test code = 354) CREATININE (BEAKER) 3.46 mg/dL 0.57-1.25 H (test code = 358) GLUCOSE RANDOM 139 mg/dL 70-105 H (BEAKER) (test code = 652) CALCIUM (BEAKER) 7.7 mg/dL 8.4-10.2 L (test code = 697) AST (SGOT) (BEAKER) 19 U/L 5-34 (test code = 353) ALT (SGPT) (BEAKER) 9 U/L 6-55 (test code = 347) EGFR (BEAKER) (test 18 mL/min/1.73 ESTIMA JAMIE GFR IS code = 1092) sq m NOT ACCURATE CREATININE CLEARANCE IN PREDICTING GLOMERULAR FILTRATION RATE . ESTIMATED GFR I S NOT APPLICABLE FOR DIALYSIS PATIEN TS. [id number] 04:13:00 Test Item Value Reference Range Interpretation Comments PHOSPHORUS (BEAKER) (test code = 3.3 mg/dL 2.3-4.7 604) [id number] 04:13:00 Test Item Value Reference Range Interpretation Comments MAGNESIUM (BEAKER) (test code = 2.1 mg/dL 1.6-2.6 627) PROTHROMBIN [id number] 04:06:00 Test Item Value Reference Range Interpretation Comments PROTIME (BEAKER) (test code = 14.6 seconds 11.7-14.7 759) INR (BEAKER) (test code = 370) 1.1 <=5.9 RECOMMENDED COUMADIN/WARFARIN INR THERAPY RANGESSTANDARD DOSE: 2.0 - 3.0 Includes: PROPHYLAXIS forvenous thrombosis, systemic embolization; TREATMENT for venous thrombosis and/or pulmonary embolus.HIGH RISK: Target INR is 2.5-3.5 for patients with mechanical heart valves.CALCIUM, [id number] 03:59:00 Test Item Value Reference Range Interpretation Comments CALCIUM IONIZED (BEAKER) (test 0.96 mmol/L 1.12-1.27 L code = 698) PH, BLOOD (BEAKER) (test code = 7.37 1810) CBC W/PLT COUNT & AUTO [id number] 03:58:00 Test Item Value Reference Range Interpretation Comments WHITE BLOOD CELL COUNT (BEAKER) 10.2 K/ L 3.5-10.5 (test code = 775) RED BLOOD CELL COUNT (BEAKER) 2.73 M/ L 4.63-6.08 L (test code = 761) HEMOGLOBIN (BEAKER) (test code = 8.1 GM/DL 13.7-17.5 L 410) HEMATOCRIT (BEAKER) (test code = 24.3 % 40.1-51.0 L 411) MEAN CORPUSCULAR VOLUME (BEAKER) 89.0 fL 79.0-92.2 (test code = 753) MEAN CORPUSCULAR HEMOGLOBIN 29.7 pg 25.7-32.2 (BEAKER) (test code = 751) MEAN CORPUSCULAR HEMOGLOBIN CONC 33.3 GM/DL 32.3-36.5 (BEAKER) (test code = 752) RED CELL DISTRIBUTION WIDTH 13.8 % 11.6-14.4 (BEAKER) (test code = 412) PLATELET COUNT (BEAKER) (test 264 K/CU MM 150-450 code = 756) MEAN PLATELET VOLUME (BEAKER) 8.7 fL 9.4-12.4 L (test code = 754) NUCLEATED RED BLOOD CELLS 0 /100 WBC 0-0 (BEAKER) (test code = 413) NEUTROPHILS RELATIVE PERCENT 73 % (BEAKER) (test code = 429) LYMPHOCYTES RELATIVE PERCENT 7 % (BEAKER) (test code = 430) MONOCYTES RELATIVE PERCENT 14 % (BEAKER) (test code = 431) EOSINOPHILS RELATIVE PERCENT 5 % (BEAKER) (test code = 432) BASOPHILS RELATIVE PERCENT 1 % (BEAKER) (test code = 437) NEUTROPHILS ABSOLUTE COUNT 7.38 K/ L 1.78-5.38 H (BEAKER) (test code = 670) LYMPHOCYTES ABSOLUTE COUNT 0.67 K/ L 1.32-3.57 L (BEAKER) (test code = 414) MONOCYTES ABSOLUTE COUNT (BEAKER) 1.45 K/ L 0.30-0.82 H (test code = 415) EOSINOPHILS ABSOLUTE COUNT 0.49 K/ L 0.04-0.54 (BEAKER) (test code = 416) BASOPHILS ABSOLUTE COUNT (BEAKER) 0.05 K/ L 0.01-0.08 (test code = 417) IMMATURE GRANULOCYTES-RELATIVE 1 % 0-1 PERCENT (BEAKER) (test code = 2801) POCT-GLUCOSE [id number] 21:18:00 Test Item Value Reference Range Interpretation Comments POC-GLUCOSE METER 198 mg/dL 70-110 H TESTED AT [place] [address] ([facility]) (test code = [facility] 1538) [address] POCT-GLUCOSE [id number] 17:04:00 Test Item Value Reference Range Interpretation Comments POC-GLUCOSE METER 288 mg/dL 70-110 H TESTED AT [place] [address] ([facility]) (test code = [facility] 1538) [address] BUN AND [id number] 14:26:00 Test Item Value Reference Range Interpretation Comments BLOOD UREA NITROGEN 27 mg/dL 7-21 H (BEAKER) (test code = 354) CREATININE (AKER) 2.47 mg/dL 0.57-1.25 H (test code = 358) EGFR ([facility]) (test 27 mL/min/1.73 ESTIMA JAMIE GFR IS code = 1092) sq m NOT ACCURATE CREATININE CLEARANCE IN PREDICTING GLOMERULAR FILTRATION RATE . ESTIMATED GFR I S NOT APPLICABLE FOR DIALYSIS PATIEN TS. POCT-GLUCOSE [id number] 12:59:00 Test Item Value Reference Range Interpretation Comments POC-GLUCOSE METER 270 mg/dL 70-110 H TESTED AT [place] [address] (BEAKER) (test code = [place] [place] 1538) [address] CBC W/PLT COUNT & AUTO [id number] 10:21:00 Test Item Value Reference Range Interpretation Comments WHITE BLOOD CELL COUNT (BEAKER) 9.5 K/ L 3.5-10.5 (test code = 775) RED BLOOD CELL COUNT (BEAKER) 2.84 M/ L 4.63-6.08 L (test code = 761) HEMOGLOBIN (BEAKER) (test code = 8.4 GM/DL 13.7-17.5 L 410) HEMATOCRIT (BEAKER) (test code = 25.8 % 40.1-51.0 L 411) MEAN CORPUSCULAR VOLUME (BEAKER) 90.8 fL 79.0-92.2 (test code = 753) MEAN CORPUSCULAR HEMOGLOBIN 29.6 pg 25.7-32.2 (BEAKER) (test code = 751) MEAN CORPUSCULAR HEMOGLOBIN CONC 32.6 GM/DL 32.3-36.5 (BEAKER) (test code = 752) RED CELL DISTRIBUTION WIDTH 13.9 % 11.6-14.4 (BEAKER) (test code = 412) PLATELET COUNT (BEAKER) (test 258 K/CU MM 150-450 code = 756) MEAN PLATELET VOLUME (BEAKER) 8.7 fL 9.4-12.4 L (test code = 754) NUCLEATED RED BLOOD CELLS 0 /100 WBC 0-0 (BEAKER) (test code = 413) NEUTROPHILS RELATIVE PERCENT 71 % (BEAKER) (test code = 429) LYMPHOCYTES RELATIVE PERCENT 7 % (BEAKER) (test code = 430) MONOCYTES RELATIVE PERCENT 16 % (BEAKER) (test code = 431) EOSINOPHILS RELATIVE PERCENT 5 % (BEAKER) (test code = 432) BASOPHILS RELATIVE PERCENT 0 % (BEAKER) (test code = 437) NEUTROPHILS ABSOLUTE COUNT 6.72 K/ L 1.78-5.38 H (BEAKER) (test code = 670) LYMPHOCYTES ABSOLUTE COUNT 0.64 K/ L 1.32-3.57 L (BEAKER) (test code = 414) MONOCYTES ABSOLUTE COUNT (BEAKER) 1.52 K/ L 0.30-0.82 H (test code = 415) EOSINOPHILS ABSOLUTE COUNT 0.46 K/ L 0.04-0.54 (BEAKER) (test code = 416) BASOPHILS ABSOLUTE COUNT (BEAKER) 0.04 K/ L 0.01-0.08 (test code = 417) IMMATURE GRANULOCYTES-RELATIVE 1 % 0-1 PERCENT (BEAKER) (test code = 2801) POCT-GLUCOSE [id number] 09:02:00 Test Item Value Reference Range Interpretation Comments POC-GLUCOSE METER 225 mg/dL 70-110 H TESTED AT [facility] 6720 (BEAKER) (test code = CLAIRE May [place] 1538) [address] [id number] 08:04:00 Test Item Value Reference Range Interpretation Comments SODIUM (BEAKER) (test code = 381) 137 meq/L 136-145 POTASSIUM (BEAKER) (test code = 3.6 meq/L 3.5-5.1 379) CHLORIDE (BEAKER) (test code = 382) 99 meq/L 98-107 CO2 (BEAKER) (test code = 355) 27 meq/L 22-29 CALCIUM, [id number] 07:10:00 Test Item Value Reference Range Interpretation Comments CALCIUM IONIZED (BEAKER) (test 0.98 mmol/L 1.12-1.27 L code = 698) PH, BLOOD (BEAKER) (test code = 7.35 1810) [id number] 05:11:00 Test Item Value Reference Range Interpretation Comments PHOSPHORUS (BEAKER) (test code = 3.1 mg/dL 2.3-4.7 604) [id number] 05:11:00 Test Item Value Reference Range Interpretation Comments MAGNESIUM (BEAKER) (test code = 2.1 mg/dL 1.6-2.6 627) POCT-GLUCOSE [id number] 21:11:00 Test Item Value Reference Range Interpretation Comments POC-GLUCOSE METER 191 mg/dL 70-110 H TESTED AT [facility] 67[facility] (BEAKER) (test code = CLAIRE May [facility] 1538) [address] POCT-GLUCOSE [id number] 18:00:00 Test Item Value Reference Range Interpretation Comments POC-GLUCOSE METER 142 mg/dL 70-110 H TESTED AT [facility] 6720 (BEAKER) (test code = CLAIRE May [place] 1538) [id number] POCT-GLUCOSE [id number] 13:31:00 Test Item Value Reference Range Interpretation Comments POC-GLUCOSE METER 181 mg/dL 70-110 H TESTED AT [facility] 6720 (BEAKER) (test code = CLA[place] 1538) [id number] POCT-GLUCOSE [id number] 08:56:00 Test Item Value Reference Range Interpretation Comments POC-GLUCOSE METER 175 mg/dL 70-110 H TESTED AT [facility] 6720 (BEAKER) (test code = CLA[place] 1538) [id number] CALCIUM, [id number] 07:10:00 Test Item Value Reference Range Interpretation Comments CALCIUM IONIZED (BEAKER) (test 1.00 mmol/L 1.12-1.27 L code = 698) PH, BLOOD (BEAKER) (test code = 7.35 1810) COMPREHENSIVE METABOLIC [id number] 05:37:00 Test Item Value Reference Range Interpretation Comments TOTAL PROTEIN 5.9 gm/dL 6.0-8.3 L (BEAKER) (test code = 770) ALBUMIN (BEAKER) 3.0 g/dL 3.5-5.0 L (test code = 1145) ALKALINE PHOSPHATASE 94 U/L 40-150 (BEAKER) (test code = 346) BILIRUBIN TOTAL 0.5 mg/dL 0.2-1.2 (BEAKER) (test code = 377) SODIUM (BEAKER) (test 139 meq/L 136-145 code = 381) POTASSIUM (BEAKER) 3.9 meq/L 3.5-5.1 (test code = 379) CHLORIDE (BEAKER) 101 meq/L 98-107 (test code = 382) CO2 (BEAKER) (test 27 meq/L 22-29 code = 355) BLOOD UREA NITROGEN 35 mg/dL 7-21 H (BEAKER) (test code = 354) CREATININE (BEAKER) 3.05 mg/dL 0.57-1.25 H (test code = 358) GLUCOSE RANDOM 169 mg/dL 70-105 H (BEAKER) (test code = 652) CALCIUM (BEAKER) 8.3 mg/dL 8.4-10.2 L (test code = 697) AST (SGOT) (BEAKER) 20 U/L 5-34 (test code = 353) ALT (SGPT) (BEAKER) 9 U/L 6-55 (test code = 347) EGFR (BEAKER) (test 21 mL/min/1.73 ESTIMA JAMIE GFR IS code = 1092) sq m NOT ACCURATE CREATININE CLEARANCE IN PREDICTING GLOMERULAR FILTRATION RATE . ESTIMATED GFR I S NOT APPLICABLE FOR DIALYSIS PATIEN TS. [id number] 05:35:00 Test Item Value Reference Range Interpretation Comments PHOSPHORUS (BEAKER) (test code = 3.5 mg/dL 2.3-4.7 604) [id number] 05:35:00 Test Item Value Reference Range Interpretation Comments MAGNESIUM (BEAKER) (test code = 2.1 mg/dL 1.6-2.6 627) CBC W/PLT COUNT & AUTO [id number] 05:06:00 Test Item Value Reference Range Interpretation Comments WHITE BLOOD CELL COUNT (BEAKER) 10.9 K/ L 3.5-10.5 H (test code = 775) RED BLOOD CELL COUNT (BEAKER) 2.91 M/ L 4.63-6.08 L (test code = 761) HEMOGLOBIN (BEAKER) (test code = 8.7 GM/DL 13.7-17.5 L 410) HEMATOCRIT (BEAKER) (test code = 26.4 % 40.1-51.0 L 411) MEAN CORPUSCULAR VOLUME (BEAKER) 90.7 fL 79.0-92.2 (test code = 753) MEAN CORPUSCULAR HEMOGLOBIN 29.9 pg 25.7-32.2 (BEAKER) (test code = 751) MEAN CORPUSCULAR HEMOGLOBIN CONC 33.0 GM/DL 32.3-36.5 (BEAKER) (test code = 752) RED CELL DISTRIBUTION WIDTH 14.6 % 11.6-14.4 H (BEAKER) (test code = 412) PLATELET COUNT (BEAKER) (test 245 K/CU MM 150-450 code = 756) MEAN PLATELET VOLUME (BEAKER) 9.0 fL 9.4-12.4 L (test code = 754) NUCLEATED RED BLOOD CELLS 0 /100 WBC 0-0 (BEAKER) (test code = 413) NEUTROPHILS RELATIVE PERCENT 77 % (BEAKER) (test code = 429) LYMPHOCYTES RELATIVE PERCENT 6 % (BEAKER) (test code = 430) MONOCYTES RELATIVE PERCENT 13 % (BEAKER) (test code = 431) EOSINOPHILS RELATIVE PERCENT 3 % (BEAKER) (test code = 432) BASOPHILS RELATIVE PERCENT 0 % (BEAKER) (test code = 437) NEUTROPHILS ABSOLUTE COUNT 8.42 K/ L 1.78-5.38 H (BEAKER) (test code = 670) LYMPHOCYTES ABSOLUTE COUNT 0.67 K/ L 1.32-3.57 L (BEAKER) (test code = 414) MONOCYTES ABSOLUTE COUNT (BEAKER) 1.44 K/ L 0.30-0.82 H (test code = 415) EOSINOPHILS ABSOLUTE COUNT 0.30 K/ L 0.04-0.54 (BEAKER) (test code = 416) BASOPHILS ABSOLUTE COUNT (BEAKER) 0.04 K/ L 0.01-0.08 (test code = 417) IMMATURE GRANULOCYTES-RELATIVE 1 % 0-1 PERCENT (BEAKER) (test code = 2801) POCT-GLUCOSE [id number] 21:02:00 Test Item Value Reference Range Interpretation Comments POC-GLUCOSE METER 186 mg/dL 70-110 H TESTED AT [place] [address] ([facility]) (test code = CLAIRE May [facility] 1538) [id number] POCT-GLUCOSE [id number] 17:54:00 Test Item Value Reference Range Interpretation Comments POC-GLUCOSE METER 163 mg/dL 70-110 H TESTED AT [place] [address] ([facility]) (test code = CLAIRE May [facility] 1538) [address] POCT-GLUCOSE [id number] 12:47:00 Test Item Value Reference Range Interpretation Comments POC-GLUCOSE METER 245 mg/dL 70-110 H TESTED AT [place] [address] ([facility]) (test code = CLAIRE May [facility] 1538) [id number] POCT-GLUCOSE [id number] 11:23:00 Test Item Value Reference Range Interpretation Comments POC-GLUCOSE METER 175 mg/dL 70-110 H TESTED AT [place] [address] ([facility]) (test code = CLAIRE May [facility] 1538) [address] POCT-GLUCOSE [id number] 08:39:00 Test Item Value Reference Range Interpretation Comments POC-GLUCOSE METER 193 mg/dL 70-110 H TESTED AT [place] [address] ([facility]) (test code = CLAIRE May [facility] 1538) [address] POCT-GLUCOSE [id number] 08:37:00 Test Item Value Reference Range Interpretation Comments POC-GLUCOSE METER 210 mg/dL 70-110 H TESTED AT [facility] 6720 (BEAKER) (test code = CLAIRE [place] 1538) [id number] CBC W/PLT COUNT & AUTO [id number] 06:01:00 Test Item Value Reference Range Interpretation Comments WHITE BLOOD CELL COUNT (BEAKER) 12.5 K/ L 3.5-10.5 H (test code = 775) RED BLOOD CELL COUNT (BEAKER) 2.96 M/ L 4.63-6.08 L (test code = 761) HEMOGLOBIN (BEAKER) (test code = 8.8 GM/DL 13.7-17.5 L 410) HEMATOCRIT (BEAKER) (test code = 26.0 % 40.1-51.0 L 411) MEAN CORPUSCULAR VOLUME (BEAKER) 87.8 fL 79.0-92.2 (test code = 753) MEAN CORPUSCULAR HEMOGLOBIN 29.7 pg 25.7-32.2 (BEAKER) (test code = 751) MEAN CORPUSCULAR HEMOGLOBIN CONC 33.8 GM/DL 32.3-36.5 (BEAKER) (test code = 752) RED CELL DISTRIBUTION WIDTH 14.6 % 11.6-14.4 H (BEAKER) (test code = 412) PLATELET COUNT (BEAKER) (test 197 K/CU MM 150-450 code = 756) MEAN PLATELET VOLUME (BEAKER) 9.3 fL 9.4-12.4 L (test code = 754) NUCLEATED RED BLOOD CELLS 0 /100 WBC 0-0 (BEAKER) (test code = 413) NEUTROPHILS RELATIVE PERCENT 82 % (BEAKER) (test code = 429) LYMPHOCYTES RELATIVE PERCENT 5 % (BEAKER) (test code = 430) MONOCYTES RELATIVE PERCENT 12 % (BEAKER) (test code = 431) EOSINOPHILS RELATIVE PERCENT 1 % (BEAKER) (test code = 432) BASOPHILS RELATIVE PERCENT 0 % (BEAKER) (test code = 437) NEUTROPHILS ABSOLUTE COUNT 10.22 K/ L 1.78-5.38 H (BEAKER) (test code = 670) LYMPHOCYTES ABSOLUTE COUNT 0.57 K/ L 1.32-3.57 L (BEAKER) (test code = 414) MONOCYTES ABSOLUTE COUNT (BEAKER) 1.46 K/ L 0.30-0.82 H (test code = 415) EOSINOPHILS ABSOLUTE COUNT 0.12 K/ L 0.04-0.54 (BEAKER) (test code = 416) BASOPHILS ABSOLUTE COUNT (BEAKER) 0.03 K/ L 0.01-0.08 (test code = 417) IMMATURE GRANULOCYTES-RELATIVE 1 % 0-1 PERCENT (BEAKER) (test code = 2801) CALCIUM, [id number] 05:56:00 Test Item Value Reference Range Interpretation Comments CALCIUM IONIZED (BEAKER) (test 1.04 mmol/L 1.12-1.27 L code = 698) PH, BLOOD (BEAKER) (test code = 7.40 1810) COMPREHENSIVE METABOLIC [id number] 04:44:00 Test Item Value Reference Range Interpretation Comments TOTAL PROTEIN 5.7 gm/dL 6.0-8.3 L (BEAKER) (test code = 770) ALBUMIN (BEAKER) 3.0 g/dL 3.5-5.0 L (test code = 1145) ALKALINE PHOSPHATASE 84 U/L 40-150 (BEAKER) (test code = 346) BILIRUBIN TOTAL 0.5 mg/dL 0.2-1.2 (BEAKER) (test code = 377) SODIUM (BEAKER) (test 138 meq/L 136-145 code = 381) POTASSIUM (BEAKER) 4.2 meq/L 3.5-5.1 (test code = 379) CHLORIDE (BEAKER) 104 meq/L 98-107 (test code = 382) CO2 (BEAKER) (test 22 meq/L 22-29 code = 355) BLOOD UREA NITROGEN 48 mg/dL 7-21 H (BEAKER) (test code = 354) CREATININE (BEAKER) 3.69 mg/dL 0.57-1.25 H (test code = 358) GLUCOSE RANDOM 176 mg/dL 70-105 H (BEAKER) (test code = 652) CALCIUM (BEAKER) 8.4 mg/dL 8.4-10.2 (test code = 697) AST (SGOT) (BEAKER) 19 U/L 5-34 (test code = 353) ALT (SGPT) (BEAKER) 9 U/L 6-55 (test code = 347) EGFR (BEAKER) (test 17 mL/min/1.73 ESTIMA JAMIE GFR IS code = 1092) sq m NOT ACCURATE CREATININE CLEARANCE IN PREDICTING GLOMERULAR FILTRATION RATE . ESTIMATED GFR I S NOT APPLICABLE FOR DIALYSIS PATIEN TS. [id number] 04:41:00 Test Item Value Reference Range Interpretation Comments PHOSPHORUS (BEAKER) (test code = 5.1 mg/dL 2.3-4.7 H 604) [id number] 04:41:00 Test Item Value Reference Range Interpretation Comments MAGNESIUM (BEAKER) (test code = 2.2 mg/dL 1.6-2.6 627) RAD, CHEST, 1 VIEW, NON [id number] 04:08:00Reason for exam:->Post ACB/CTShould this be performed at the bedside?->YesFINAL REPORT EXAMINATION: AP PORTABLE CHEST RADIOGRAPH CLINICAL INDICATION: Sh ortness of breath IMPRESSION: Compared with 10/13/2017 The enlarged heart, parenchymal lung opacitiesand superimposed pleural effusions are stable. The more confluent basilar opacities are favored to reflect associated passive atelectasis. Cardiac and mediastinal contours are stable. A right jugular di alysis catheter is again noted with the tip projecting over the superior vena cava. No evidence of apneumothorax. In summary, no significant interval change. CHF-fluid overload. Signed: Juan Guy MDReport Verified Date/Time: 10/14/2017 04:08:55 Reading Location: [address] Reading Room POTASSIUM 2017-10-14 01:04:00 Test Item Value Reference Range Interpretation Comments POTASSIUM (BEAKER) (test code = 4.0 meq/L 3.5-5.1 379) Call Dr. Floyd if K > 5.0HEPATITIS B SURFACE [id number] 20:17:00 Test Item Value Reference Range Interpretation Comments HEPATITIS B SURFACE ANTIBODY < mIU/mL <8.0 (BEAKER) (test code = 647) HEPATITIS B SURFACE [id number] 20:16:00 Test Item Value Reference Range Interpretation Comments HEPATITIS B SURFACE ANTIGEN (2) Nonreactive Nonreactive (BEAKER) (test code = 2585) HEPATITIS B CORE ANTIBODY, [id number] 20:16:00 Test Item Value Reference Range Interpretation Comments HEPATITIS B CORE TOTAL ANTIBODY Nonreactive Nonreactive (BEAKER) (test code = 497) CBC (HEMOGRAM ONLY)2017-10-13 19:52:00 Test Item Value Reference Range Interpretation Comments WHITE BLOOD CELL COUNT (BEAKER) 14.4 K/ L 3.5-10.5 H (test code = 775) RED BLOOD CELL COUNT (BEAKER) 2.25 M/ L 4.63-6.08 L (test code = 761) HEMOGLOBIN (BEAKER) (test code = 6.7 GM/DL 13.7-17.5 L 410) HEMATOCRIT (BEAKER) (test code = 20.2 % 40.1-51.0 L 411) MEAN CORPUSCULAR VOLUME (BEAKER) 89.8 fL 79.0-92.2 (test code = 753) MEAN CORPUSCULAR HEMOGLOBIN 29.8 pg 25.7-32.2 (BEAKER) (test code = 751) MEAN CORPUSCULAR HEMOGLOBIN CONC 33.2 GM/DL 32.3-36.5 (BEAKER) (test code = 752) RED CELL DISTRIBUTION WIDTH 15.2 % 11.6-14.4 H (BEAKER) (test code = 412) PLATELET COUNT (BEAKER) (test 215 K/CU MM 150-450 code = 756) MEAN PLATELET VOLUME (BEAKER) 9.1 fL 9.4-12.4 L (test code = 754) NUCLEATED RED BLOOD CELLS 0 /100 WBC 0-0 (BEAKER) (test code = 413) [id number] 19:48:00 Test Item Value Reference Range Interpretation Comments POTASSIUM (BEAKER) (test code = 4.8 meq/L 3.5-5.1 379) Call Dr. Floyd if K > 5.0POCT-GLUCOSE [id number] 17:41:00 Test Item Value Reference Range Interpretation Comments POC-GLUCOSE METER 266 mg/dL 70-110 H TESTED AT [facility] 6720 (BEAKER) (test code = CLAIRE [place] 1538) [address] RAD, CHEST, 1 VIEW, NON [id number] 17:10:00Reason for exam:->HD cath placement Should this be performed at the bedside?->YesFINAL REPORT TECHNIQUE: Frontal view of the chest. INDICATION: 57-year-old man with dialysis catheter. COMPARISON: Chest radiograph from earlier same date. FINDINGS: LINES/TUBES: The tip of a right internal jugular dual lumen dialysis catheter terminates over the expected region of the cavoatrial junction. LUNGS: Low lung volumes, which accentuate the cardiac silhouette and pulmonary vasculature. Persistent linear subsegmental atelectasis scattered bilaterally. No consolidation or pulmonary edema. PLEURA: No pneumothorax or significant pleural effusion. HEART AND MEDIASTINUM: The cardiomediastinal silhouette is prominent, but unchanged. SOFT TISSUES AND BONES: Unchanged median sternotomy wires. IMPRESSION:Lines/tubes as above. Otherwise, no significant change since chest radiograph from earlier same date. Signed: Skye Sylvestereport Verified Date/Time: 10/13/2017 17:10:26 Reading Location: [address] Body Reading Room [id number] 14:29:00 Test Item Value Reference Range Interpretation Comments POTASSIUM (BEAKER) (test code = 4.9 meq/L 3.5-5.1 379) Call Dr. Floyd if K > 5.0CBC W/PLT COUNT & AUTO [id number] 10:14:00 Test Item Value Reference Range Interpretation Comments WHITE BLOOD CELL COUNT (BEAKER) 15.9 K/ L 3.5-10.5 H (test code = 775) RED BLOOD CELL COUNT (BEAKER) 2.37 M/ L 4.63-6.08 L (test code = 761) HEMOGLOBIN (BEAKER) (test code = 7.0 GM/DL 13.7-17.5 L 410) HEMATOCRIT (BEAKER) (test code = 21.2 % 40.1-51.0 L 411) MEAN CORPUSCULAR VOLUME (BEAKER) 89.5 fL 79.0-92.2 (test code = 753) MEAN CORPUSCULAR HEMOGLOBIN 29.5 pg 25.7-32.2 (BEAKER) (test code = 751) MEAN CORPUSCULAR HEMOGLOBIN CONC 33.0 GM/DL 32.3-36.5 (BEAKER) (test code = 752) RED CELL DISTRIBUTION WIDTH 15.2 % 11.6-14.4 H (BEAKER) (test code = 412) PLATELET COUNT (BEAKER) (test 223 K/CU MM 150-450 code = 756) MEAN PLATELET VOLUME (BEAKER) 9.2 fL 9.4-12.4 L (test code = 754) NUCLEATED RED BLOOD CELLS 0 /100 WBC 0-0 (BEAKER) (test code = 413) CALCIUM, [id number] 05:43:00 Test Item Value Reference Range Interpretation Comments CALCIUM IONIZED (BEAKER) (test 0.98 mmol/L 1.12-1.27 L code = 698) PH, BLOOD (BEAKER) (test code = 7.33 1810) COMPREHENSIVE METABOLIC [id number] 05:42:00 Test Item Value Reference Range Interpretation Comments TOTAL PROTEIN 5.5 gm/dL 6.0-8.3 L (BEAKER) (test code = 770) ALBUMIN (BEAKER) 3.1 g/dL 3.5-5.0 L (test code = 1145) ALKALINE PHOSPHATASE 85 U/L 40-150 (BEAKER) (test code = 346) BILIRUBIN TOTAL 0.4 mg/dL 0.2-1.2 (BEAKER) (test code = 377) SODIUM (BEAKER) (test 138 meq/L 136-145 code = 381) POTASSIUM (BEAKER) 4.7 meq/L 3.5-5.1 (test code = 379) CHLORIDE (BEAKER) 100 meq/L 98-107 (test code = 382) CO2 (BEAKER) (test 20 meq/L 22-29 L code = 355) BLOOD UREA NITROGEN 71 mg/dL 7-21 H (BEAKER) (test code = 354) CREATININE (BEAKER) 5.36 mg/dL 0.57-1.25 H (test code = 358) GLUCOSE RANDOM 183 mg/dL 70-105 H (BEAKER) (test code = 652) CALCIUM (BEAKER) 7.8 mg/dL 8.4-10.2 L (test code = 697) AST (SGOT) (BEAKER) 23 U/L 5-34 (test code = 353) ALT (SGPT) (BEAKER) 12 U/L 6-55 (test code = 347) EGFR (BEAKER) (test 11 mL/min/1.73 ESTIMA JAMIE GFR IS code = 1092) sq m NOT ACCURATE CREATININE CLEARANCE IN PREDICTING GLOMERULAR FILTRATION RATE . ESTIMATED GFR I S NOT APPLICABLE FOR DIALYSIS PATIEN TS. Call Dr. Floyd if K > [id number] 05:41:00 Test Item Value Reference Range Interpretation Comments POTASSIUM (BEAKER) (test code = 4.7 meq/L 3.5-5.1 379) Call Dr. Floyd if K > [id number] 05:41:00 Test Item Value Reference Range Interpretation Comments MAGNESIUM (BEAKER) (test code = 2.4 mg/dL 1.6-2.6 627) Call Dr. Floyd if K > [id number] 05:41:00 Test Item Value Reference Range Interpretation Comments PHOSPHORUS (BEAKER) (test code = 7.4 mg/dL 2.3-4.7 H 604) Call Dr. Floyd if K > 5.0CREATINE KINASE (CK)2017-10-13 05:41:00 Test Item Value Reference Range Interpretation Comments CREATINE KINASE TOTAL (BEAKER) (test 570 U/L 29-200 H code = 380) Call Dr. Floyd if K > 5.0RAD, CHEST, 1 VIEW, NON [id number] 04:22:00 Reason for exam:->Post ACB/CTShould this be performed at the bedside?->YesFINAL REPORT RAD, CHEST, 1 VIEW, NON DEPT INDICATION: Post ACB/CT COMPARISON: Prior day's exam FINDINGS: Portable frontal view of the chest. IMPRESSION: Support Lines: Stable. Lungs and pleura: No focal consolidation. Lungs are underinflated. No pneumothorax.Heart and mediast inum: Stable contours. Stable surgical changes.Additional findings: None. Signed: JR Hughes Robert MDReport Verified Date/Time: 10/13/2017 04:22:33 Reading Location: [facility] C0[facility] CT Body Reading Room U/S, RENAL, COMPLETE 2017-10-12 18:56:00Reason for exam:->AKIFINAL REPORT History: Acute kidney injury. FINDINGS: Correlation is made withpatient's previous study performed June 25, 2016. Real-time sonographic examination reveals normal size kidneys measuring up to 12.1 x 4.8 x 6.8 and 12.2 x 4.8 x 5.7 cm in greatest dimensions on theright and left, respectively. Renal echogenicity appears normal. There are no sonographically detectable solid masses, cysts, stones or evidence for obstruction. Renal cortical thickness measures 20 mmon the right and 16 mm on the left. No perinephric fluid collections. Very limited color and spectral Doppler analysis demonstrates patent main renal arteries and veins bilaterally. The urinary bladderis decompressed and contains a Rosario catheter balloon but is otherwise unremarkable. IMPRESSION: 1. Unremarkable renal sonogram. No acute abnormalities or obstruction. Signed: Shari Dunbar MDReport Verified Date/Time: 10/12/2017 18:56:17 Reading Location: [facility] Diagnostic Imaging Reading Room - [place] [address] [facility] METABOLIC [id number] 17:04:00 Test Item Value Reference Range Interpretation Comments SODIUM (BEAKER) 141 meq/L 136-145 (test code = 381) POTASSIUM (BEAKER) 4.8 meq/L 3.5-5.1 (test code = 379) CHLORIDE (BEAKER) 103 meq/L 98-107 (test code = 382) CO2 (BEAKER) (test 24 meq/L 22-29 code = 355) BLOOD UREA NITROGEN 64 mg/dL 7-21 H (BEAKER) (test code = 354) CREATININE (BEAKER) 4.89 mg/dL 0.57-1.25 H (test code = 358) GLUCOSE RANDOM 176 mg/dL 70-105 H (BEAKER) (test code = 652) CALCIUM (BEAKER) 8.0 mg/dL 8.4-10.2 L (test code = 697) EGFR (BEAKER) (test 12 mL/min/1.73 ESTIMA JAMIE GFR IS code = 1092) sq m NOT ACCURATE CREATININE CLEARANCE IN PREDICTING GLOMERULAR FILTRATION RATE . ESTIMATED GFR I S NOT APPLICABLE FOR DIALYSIS PATIEN TS. CBC (HEMOGRAM ONLY)2017-10-12 16:44:00 Test Item Value Reference Range Interpretation Comments WHITE BLOOD CELL COUNT (BEAKER) 17.0 K/ L 3.5-10.5 H (test code = 775) RED BLOOD CELL COUNT (BEAKER) 2.21 M/ L 4.63-6.08 L (test code = 761) HEMOGLOBIN (BEAKER) (test code = 6.5 GM/DL 13.7-17.5 L 410) HEMATOCRIT (BEAKER) (test code = 19.9 % 40.1-51.0 L 411) MEAN CORPUSCULAR VOLUME (BEAKER) 90.0 fL 79.0-92.2 (test code = 753) MEAN CORPUSCULAR HEMOGLOBIN 29.4 pg 25.7-32.2 (BEAKER) (test code = 751) MEAN CORPUSCULAR HEMOGLOBIN CONC 32.7 GM/DL 32.3-36.5 (BEAKER) (test code = 752) RED CELL DISTRIBUTION WIDTH 15.1 % 11.6-14.4 H (BEAKER) (test code = 412) PLATELET COUNT (BEAKER) (test 253 K/CU MM 150-450 code = 756) MEAN PLATELET VOLUME (BEAKER) 9.1 fL 9.4-12.4 L (test code = 754) NUCLEATED RED BLOOD CELLS 0 /100 WBC 0-0 (BEAKER) (test code = 413) THROMBOELASTOGRAPH (TEG)2017-10-12 13:46:00 Test Item Value Reference Range Interpretation Comments TEG ACTIVATED CLOTTING TIME 6.5 minutes 4.0-7.0 (BEAKER) (test code = 1407) TEG FIBRINOGEN ACTIVITY (BEAKER) 77.0 degrees 61.0-73.0 H (test code = 1408) TEG PLT. AGGREGATION (BEAKER) 75.8 MM 55.0-65.0 H (test code = 1409) TEG FIBRINOLYSIS (BEAKER) (test 17.0 % 0.0-5.0 H code = 1410) TGH ACTIVATED CLOTTING TIME 6.0 minutes 4.0-7.0 (BEAKER) (test code = 1411) TGH FIBRINOGEN ACTIVITY (BEAKER) 77.0 degrees 61.0-73.0 H (test code = 1412) TGH PLT. AGGREGATION (BEAKER) 68.7 MM 55.0-65.0 H (test code = 1413) TGH FIBRINOLYSIS (BEAKER) (test 0.0 % 0.0-5.0 code = 1414) [id number] 12:28:00 Test Item Value Reference Range Interpretation Comments SODIUM (BEAKER) (test code = 381) 141 meq/L 136-145 POTASSIUM (BEAKER) (test code = 4.9 meq/L 3.5-5.1 379) CHLORIDE (BEAKER) (test code = 382) 104 meq/L 98-107 CO2 (BEAKER) (test code = 355) 24 meq/L 22-29 CBC W/PLT COUNT & AUTO [id number] 12:02:00 Test Item Value Reference Range Interpretation Comments WHITE BLOOD CELL COUNT (BEAKER) 18.7 K/ L 3.5-10.5 H (test code = 775) RED BLOOD CELL COUNT (BEAKER) 2.39 M/ L 4.63-6.08 L (test code = 761) HEMOGLOBIN (BEAKER) (test code = 7.3 GM/DL 13.7-17.5 L 410) HEMATOCRIT (BEAKER) (test code = 21.8 % 40.1-51.0 L 411) MEAN CORPUSCULAR VOLUME (BEAKER) 91.2 fL 79.0-92.2 (test code = 753) MEAN CORPUSCULAR HEMOGLOBIN 30.5 pg 25.7-32.2 (BEAKER) (test code = 751) MEAN CORPUSCULAR HEMOGLOBIN CONC 33.5 GM/DL 32.3-36.5 (BEAKER) (test code = 752) RED CELL DISTRIBUTION WIDTH 14.7 % 11.6-14.4 H (BEAKER) (test code = 412) PLATELET COUNT (BEAKER) (test 271 K/CU MM 150-450 code = 756) MEAN PLATELET VOLUME (BEAKER) 8.8 fL 9.4-12.4 L (test code = 754) NUCLEATED RED BLOOD CELLS 0 /100 WBC 0-0 (BEAKER) (test code = 413) POCT-GLUCOSE [id number] 11:41:00 Test Item Value Reference Range Interpretation Comments POC-GLUCOSE METER 172 mg/dL 70-110 H TESTED AT [facility] 6720 (BEAKER) (test code = [place] 1538) [id number] 10:46:00 Test Item Value Reference Range Interpretation Comments FIBRINOGEN LEVEL (BEAKER) (test 480 mg/dl 225-434 H code = 658) [id number] 10:46:00 Test Item Value Reference Range Interpretation Comments PROTIME (BEAKER) (test code = 15.2 seconds 11.7-14.7 H 759) INR (BEAKER) (test code = 370) 1.2 <=5.9 PARTIAL THROMBOPLASTIN TIME 36.8 seconds 22.5-36.0 H (BEAKER) (test code = 760) RECOMMENDED COUMADIN/WARFARIN INR THERAPY RANGESSTANDARD DOSE: 2.0 - 3.0 Includes: PROPHYLAXIS forvenous thrombosis, systemic embolization; TREATMENT for venous thrombosis and/or pulmonary embolus.HIGH RISK: Target INR is 2.5-3.5 for patients with mechanical heart valves.RAD, CHEST, 1 VIEW, NON [id number] 06:31:00Reason for exam:->Post ACB/CTShould this be performed at the bedside?->YesFINAL REPORT RAD, CHEST, 1 VIEW, NON DEPT INDICATION: Post ACB/CT COMPARISON: Prior day's exam FINDINGS: Portable frontal view of the chest. IMPRESSION: Support Lines: Interval extubation. Remaining support hardware is stable.Lungs and pleura: Scattered minimal subsegmental a telectasis seen predominantly on the left. No effusion. No pneumothorax.Heart and mediastinum: Stable contours. Stable surgical changes.Additional findings: None. Signed: JR Hughes Robert MDReport Verified Date/Time: 10/12/2017 06:31:56 Reading Location: [facility] [id number] CT Body Reading Room BASIC METABOLIC PANEL 2017-10-12 05:44:00 Test Item Value Reference Range Interpretation Comments SODIUM (BEAKER) 140 meq/L 136-145 (test code = 381) POTASSIUM (BEAKER) 5.4 meq/L 3.5-5.1 H (test code = 379) CHLORIDE (BEAKER) 105 meq/L 98-107 (test code = 382) CO2 (BEAKER) (test 20 meq/L 22-29 L code = 355) BLOOD UREA NITROGEN 57 mg/dL 7-21 H (BEAKER) (test code = 354) CREATININE (BEAKER) 3.86 mg/dL 0.57-1.25 H (test code = 358) GLUCOSE RANDOM 188 mg/dL 70-105 H (BEAKER) (test code = 652) CALCIUM (BEAKER) 7.6 mg/dL 8.4-10.2 L (test code = 697) EGFR (BEAKER) (test 16 mL/min/1.73 ESTIMA JAMIE GFR IS code = 1092) sq m NOT ACCURATE CREATININE CLEARANCE IN PREDICTING GLOMERULAR FILTRATION RATE . ESTIMATED GFR I S NOT APPLICABLE FOR DIALYSIS PATIEN TS. [id number] 05:33:00 Test Item Value Reference Range Interpretation Comments PHOSPHORUS (BEAKER) (test code = 6.8 mg/dL 2.3-4.7 H 604) [id number] 05:33:00 Test Item Value Reference Range Interpretation Comments MAGNESIUM (BEAKER) (test code = 2.4 mg/dL 1.6-2.6 627) CALCIUM, [id number] 05:02:00 Test Item Value Reference Range Interpretation Comments CALCIUM IONIZED (BEAKER) (test 1.01 mmol/L 1.12-1.27 L code = 698) PH, BLOOD (BEAKER) (test code = 7.30 1810) POCT-GLUCOSE [id number] 01:05:00 Test Item Value Reference Range Interpretation Comments POC-GLUCOSE METER 111 mg/dL 70-110 H TESTED AT [facility] 6720 (BEAKER) (test code = [facility] 1538) [id number] POCT-GLUCOSE [id number] 01:04:00 Test Item Value Reference Range Interpretation Comments POC-GLUCOSE METER 85 mg/dL 70-110 TESTED AT [facility] 6720 (BEAKER) (test code = [facility] Yadira [facility] [address] 1538) POCT-GLUCOSE [id number] 23:57:00 Test Item Value Reference Range Interpretation Comments POC-GLUCOSE METER 187 mg/dL 70-110 H TESTED AT [place] [address] (BEAKER) (test code = CLAIRE May [place] 1538) [id number] HEMOGLOBIN AND [id number] 22:32:00 Test Item Value Reference Range Interpretation Comments HEMOGLOBIN (BEAKER) (test code = 7.9 GM/DL 13.7-17.5 L 410) HEMATOCRIT (BEAKER) (test code = 23.9 % 40.1-51.0 L 411) POCT-GLUCOSE [id number] 20:31:00 Test Item Value Reference Range Interpretation Comments POC-GLUCOSE METER 164 mg/dL 70-110 H TEST[facility] AT [place] [address] [facility] (test code = CLAIRE May [place] 1538) [address] POCT-GLUCOSE [id number] 17:54:00 Test Item Value Reference Range Interpretation Comments POC-GLUCOSE METER 203 mg/dL 70-110 H TESTED AT [place] [address] ([facility]) (test code = CLAIRE May [place] 1538) [address] [id number] 16:19:00 Test Item Value Reference Range Interpretation Comments POTASSIUM (BEAKER) (test code = 4.2 meq/L 3.5-5.1 379) [id number] 16:19:00 Test Item Value Reference Range Interpretation Comments GLUCOSE RANDOM (BEAKER) (test code 209 mg/dL 70-105 H = 652) BLOOD GAS, [id number] 16:06:00 Test Item Value Reference Range Interpretation Comments PH ARTERIAL (BEAKER) (test code = 7.41 7.35-7.45 383) PCO2 ARTERIAL (BEAKER) (test code 43 mmHg 35-45 = 384) PO2 ARTERIAL (BEAKER) (test code = 122 mmHg 80-90 H 385) O2 SATURATION ARTERIAL (BEAKER) 98.5 % 96.0-97.0 H (test code = 386) HCO3 ARTERIAL (BEAKER) (test code 27 mmol/L 21-29 = 388) BASE EXCESS ARTERIAL (BEAKER) 2.0 mmol/L -2.0-3.0 (test code = 387) PATIENT TEMPERATURE (BEAKER) (test 36.7 C code = 1818) FIO2 (BEAKER) (test code = 1819) 40.0 % GLUCOSE-STAT [id number] 16:06:00 Test Item Value Reference Range Interpretation Comments GLUCOSE RANDOM (BEAKER) (test code 199 mg/dL 70-110 H = 652) RAD, CHEST, 1 VIEW, NON [id number] 14:20:00Reason for exam:->immediate post cardiothoracic surgery/intubationShould this be performed at the bedside?->YesFINAL REPORT TECHNIQUE: Frontal chest radiograph dated 10/11/2017. CLINICAL HISTORY: Post op COMPARISON STUDY: chest radiograph dated 10/04/2017 IMPRESSION:Endotracheal tube is 4.9cm above the nalini. Right sided vascular line projects over the region of superior vena cava/right atrial junction. Left sided chest tube and mediastinal drain are in place. Streaky atelectasis is seen throughout the lungs. No pleural effusion or pneumothorax. Cardiomediastinal silhouette is normal in size. No pulmonary edema. Midline sternotomy wires are intact and well aligned. No fracture. Signed: Jon Coto MDReport Verified Date/Time: 10/11/2017 14:20:14 Reading Location: [facility] Radiology Reading Room CBC W/PLT COUNT & AUTO [id number] 14:13:00 Test Item Value Reference Range Interpretation Comments WHITE BLOOD CELL COUNT (BEAKER) 12.0 K/ L 3.5-10.5 H (test code = 775) RED BLOOD CELL COUNT (BEAKER) 2.51 M/ L 4.63-6.08 L (test code = 761) HEMOGLOBIN (BEAKER) (test code = 7.7 GM/DL 13.7-17.5 L 410) HEMATOCRIT (BEAKER) (test code = 22.3 % 40.1-51.0 L 411) MEAN CORPUSCULAR VOLUME (BEAKER) 88.8 fL 79.0-92.2 (test code = 753) MEAN CORPUSCULAR HEMOGLOBIN 30.7 pg 25.7-32.2 (BEAKER) (test code = 751) MEAN CORPUSCULAR HEMOGLOBIN CONC 34.5 GM/DL 32.3-36.5 (BEAKER) (test code = 752) RED CELL DISTRIBUTION WIDTH 13.7 % 11.6-14.4 (BEAKER) (test code = 412) PLATELET COUNT (BEAKER) (test 167 K/CU MM 150-450 code = 756) MEAN PLATELET VOLUME (BEAKER) 8.7 fL 9.4-12.4 L (test code = 754) NUCLEATED RED BLOOD CELLS 0 /100 WBC 0-0 (BEAKER) (test code = 413) NEUTROPHILS RELATIVE PERCENT 80 % (BEAKER) (test code = 429) LYMPHOCYTES RELATIVE PERCENT 8 % (BEAKER) (test code = 430) MONOCYTES RELATIVE PERCENT 9 % (BEAKER) (test code = 431) EOSINOPHILS RELATIVE PERCENT 2 % (BEAKER) (test code = 432) BASOPHILS RELATIVE PERCENT 0 % (BEAKER) (test code = 437) NEUTROPHILS ABSOLUTE COUNT 9.64 K/ L 1.78-5.38 H (BEAKER) (test code = 670) LYMPHOCYTES ABSOLUTE COUNT 0.90 K/ L 1.32-3.57 L (BEAKER) (test code = 414) MONOCYTES ABSOLUTE COUNT (BEAKER) 1.06 K/ L 0.30-0.82 H (test code = 415) EOSINOPHILS ABSOLUTE COUNT 0.27 K/ L 0.04-0.54 (BEAKER) (test code = 416) BASOPHILS ABSOLUTE COUNT (BEAKER) 0.02 K/ L 0.01-0.08 (test code = 417) IMMATURE GRANULOCYTES-RELATIVE 1 % 0-1 PERCENT (BEAKER) (test code = 2801) [id number] 14:07:00 Test Item Value Reference Range Interpretation Comments PHOSPHORUS (BEAKER) (test code = 4.1 mg/dL 2.3-4.7 604) [id number] 14:07:00 Test Item Value Reference Range Interpretation Comments MAGNESIUM (BEAKER) (test code = 2.5 mg/dL 1.6-2.6 627) BASIC METABOLIC [id number] 14:07:00 Test Item Value Reference Range Interpretation Comments SODIUM (BEAKER) 140 meq/L 136-145 (test code = 381) POTASSIUM (BEAKER) 4.0 meq/L 3.5-5.1 (test code = 379) CHLORIDE (BEAKER) 106 meq/L 98-107 (test code = 382) CO2 (BEAKER) (test 25 meq/L 22-29 code = 355) BLOOD UREA NITROGEN 49 mg/dL 7-21 H (BEAKER) (test code = 354) CREATININE (BEAKER) 3.12 mg/dL 0.57-1.25 H (test code = 358) GLUCOSE RANDOM 167 mg/dL 70-105 H (BEAKER) (test code = 652) CALCIUM (BEAKER) 7.6 mg/dL 8.4-10.2 L (test code = 697) EGFR (BEAKER) (test 21 mL/min/1.73 ESTIMA JAMIE GFR IS code = 1092) sq m NOT ACCURATE CREATININE CLEARANCE IN PREDICTING GLOMERULAR FILTRATION RATE . ESTIMATED GFR I S NOT APPLICABLE FOR DIALYSIS PATIEN TS. BLOOD GAS, [id number] 14:04:00 Test Item Value Reference Range Interpretation Comments PH ARTERIAL (BEAKER) (test code = 7.48 7.35-7.45 H 383) PCO2 ARTERIAL (BEAKER) (test code 35 mmHg 35-45 = 384) PO2 ARTERIAL (BEAKER) (test code = 195 mmHg 80-90 H 385) O2 SATURATION ARTERIAL (BEAKER) 99.4 % 96.0-97.0 H (test code = 386) HCO3 ARTERIAL (BEAKER) (test code 26 mmol/L 21-29 = 388) BASE EXCESS ARTERIAL (BEAKER) 1.9 mmol/L -2.0-3.0 (test code = 387) PATIENT TEMPERATURE (BEAKER) (test 36.4 C code = 1818) FIO2 (BEAKER) (test code = 1819) 60.0 % GLUCOSE-STAT [id number] 14:04:00 Test Item Value Reference Range Interpretation Comments GLUCOSE RANDOM (BEAKER) (test code 158 mg/dL 70-110 H = 652) HGB/HCT (H&H) - STAT [id number] 14:04:00 Test Item Value Reference Range Interpretation Comments HEMOGLOBIN (BEAKER) (test code = 8.2 g/dL 13.0-16.8 L 410) HEMATOCRIT (BEAKER) (test code = 24.0 % 40.0-50.0 L 411) CALCIUM, [id number] 14:04:00 Test Item Value Reference Range Interpretation Comments CALCIUM IONIZED (BEAKER) (test 0.98 mmol/L 1.12-1.27 L code = 698) PH, BLOOD (BEAKER) (test code = 7.47 1810) SODIUM NA-STAT [id number] 14:03:00 Test Item Value Reference Range Interpretation Comments SODIUM (BEAKER) (test code = 381) 137 meq/L 135-148 POTASSIUM-STAT [id number] 14:03:00 Test Item Value Reference Range Interpretation Comments POTASSIUM (BEAKER) (test code = 3.7 meq/L 3.6-5.5 379) LACTIC ACID, ARTERIAL, WHOLE [id number] 14:03:00 Test Item Value Reference Range Interpretation Comments LACTATE BLOOD ARTERIAL (2) 0.8 mmol/L 0.5-2.2 (BEAKER) (test code = 2874) Effective 10/13/2015: Units/Reference Range ChangeNew: 0.5-2.2 mmol/L Previous: 5-20 mg/dLPROTHROMBIN [id number] 13:55:00 Test Item Value Reference Range Interpretation Comments PROTIME (BEAKER) (test code = 19.1 seconds 11.7-14.7 H 759) INR (BEAKER) (test code = 370) 1.6 <=5.9 RECOMMENDED COUMADIN/WARFARIN INR THERAPY RANGESSTANDARD DOSE: 2.0 - 3.0 Includes: PROPHYLAXIS forvenous thrombosis, systemic embolization; TREATMENT for venous thrombosis and/or pulmonary embolus.HIGH RISK: Target INR is 2.5-3.5 for patients with mechanical heart valves.[id number] 13:55:00 Test Item Value Reference Range Interpretation Comments FIBRINOGEN LEVEL (BEAKER) (test 282 mg/dl 225-434 code = 658) [id number] 13:55:00 Test Item Value Reference Range Interpretation Comments PARTIAL THROMBOPLASTIN TIME 31.9 seconds 22.5-36.0 (BEAKER) (test code = 760) OXYGEN SATURATION, [id number] 13:53:00 Test Item Value Reference Range Interpretation Comments O2 SATURATION (MEASURED) (BEAKER) 79.3 % (test code = 1455) PLATELET AGGREGATION: FUNCTION [id number] 13:47:00 Test Item Value Reference Range Interpretation Comments WEAK ADP 60 % 60-91 RESULT(BEAKER) (test code = 2135) PLATELET FUNCTION 60-100% indicates SCREEN INTERP (BEAKER) normal platelet (test code = 2173) function [id number] Gallo Brooks MD (BEAKER) (test code = (electronic signature) 3197) PLATELET COUNT AGG 282 K/CU MM 150-450 (BEAKER) (test code = 2656) PLATELET [id number] 13:08:00 Test Item Value Reference Range Interpretation Comments PLATELET COUNT (BEAKER) (test 125 K/CU MM 150-450 L code = 756) SODIUM NA-STAT [id number] 12:51:00 Test Item Value Reference Range Interpretation Comments SODIUM (BEAKER) (test code = 381) 138 meq/L 135-148 POTASSIUM-STAT [id number] 12:51:00 Test Item Value Reference Range Interpretation Comments POTASSIUM (BEAKER) (test code = 3.7 meq/L 3.6-5.5 379) BLOOD GAS, [id number] 12:51:00 Test Item Value Reference Range Interpretation Comments PH ARTERIAL (BEAKER) (test code = 7.44 7.35-7.45 383) PCO2 ARTERIAL (BEAKER) (test code 39 mmHg 35-45 = 384) PO2 ARTERIAL (BEAKER) (test code = 447 mmHg 80-90 H 385) O2 SATURATION ARTERIAL (BEAKER) 99.9 % 96.0-97.0 H (test code = 386) HCO3 ARTERIAL (BEAKER) (test code 26 mmol/L 21-29 = 388) BASE EXCESS ARTERIAL (BEAKER) 1.7 mmol/L -2.0-3.0 (test code = 387) PATIENT TEMPERATURE (BEAKER) (test 35.3 C code = 1818) FIO2 (BEAKER) (test code = 1819) 100.0 % GLUCOSE-STAT [id number] 12:51:00 Test Item Value Reference Range Interpretation Comments GLUCOSE RANDOM (BEAKER) (test code 156 mg/dL 70-110 H = 652) HGB/HCT (H&H) - STAT [id number] 12:51:00 Test Item Value Reference Range Interpretation Comments HEMOGLOBIN (BEAKER) (test code = 8.1 g/dL 13.0-16.8 L 410) HEMATOCRIT (BEAKER) (test code = 24.0 % 40.0-50.0 L 411) [id number] 12:40:00 Test Item Value Reference Range Interpretation Comments ACTIVATED CLOTTING TIME 147 sec TEST ED AT [place] [address] ([facility]) (test code = CLAIRE May [facility] 441) [address] [id number] 12:40:00 Test Item Value Reference Range Interpretation Comments ACTIVATED CLOTTING TIME 428 sec TEST ED AT [place] [address] ([facility]) (test code = CLAIRE May [place] [address]) [address] [id number] 12:40:00 Test Item Value Reference Range Interpretation Comments ACTIVATED CLOTTING TIME 532 sec TEST ED AT [place] [address] ([facility]) (test code = CLAIRE May [place] [address]) [address] [id number] 12:40:00 Test Item Value Reference Range Interpretation Comments ACTIVATED CLOTTING TIME 400 sec TEST ED AT [place] [address] ([facility]) (test code = CLAIRE May [place] [address]) [address] [id number] 12:06:00 Test Item Value Reference Range Interpretation Comments FIBRINOGEN LEVEL ([facility]) (test 326 mg/dl 225-434 code = 658) [id number] 12:06:00 Test Item Value Reference Range Interpretation Comments PARTIAL THROMBOPLASTIN TIME 33.6 seconds 22.5-36.0 ([facility]) (test code = 760) PROTHROMBIN [id number] 12:05:00 Test Item Value Reference Range Interpretation Comments PROTIME ([facility]) (test code = 19.2 seconds 11.7-14.7 H 759) INR ([facility]) (test code = 370) 1.6 <=5.9 RECOMMENDED COUMADIN/WARFARIN INR THERAPY RANGESSTANDARD DOSE: 2.0 - 3.0 Includes: PROPHYLAXIS forvenous thrombosis, systemic embolization; TREATMENT for venous thrombosis and/or pulmonary embolus.HIGH RISK: Target INR is 2.5-3.5 for patients with mechanical heart valves.CALCIUM, [id number] 11:58:00 Test Item Value Reference Range Interpretation Comments CALCIUM IONIZED (AKER) (test 0.95 mmol/L 1.12-1.27 L code = 698) PH, BLOOD ([facility]) (test code = 7.46 1810) BLOOD GAS, [id number] 11:57:00 Test Item Value Reference Range Interpretation Comments PH ARTERIAL ([facility]) (test code = 7.48 7.35-7.45 H 383) PCO2 ARTERIAL (BEAKER) (test code 39 mmHg 35-45 = 384) PO2 ARTERIAL (BEAKER) (test code = 340 mmHg 80-90 H 385) O2 SATURATION ARTERIAL (BEAKER) 99.8 % 96.0-97.0 H (test code = 386) HCO3 ARTERIAL (BEAKER) (test code 29 mmol/L 21-29 = 388) BASE EXCESS ARTERIAL (BEAKER) 4.5 mmol/L -2.0-3.0 H (test code = 387) PATIENT TEMPERATURE (BEAKER) (test 35.8 C code = 1818) FIO2 (BEAKER) (test code = 1819) 100.0 % GLUCOSE-STAT [id number] 11:57:00 Test Item Value Reference Range Interpretation Comments GLUCOSE RANDOM (BEAKER) (test code 135 mg/dL 70-110 H = 652) HGB/HCT (H&H) - STAT [id number] 11:57:00 Test Item Value Reference Range Interpretation Comments HEMOGLOBIN (BEAKER) (test code = 7.2 g/dL 13.0-16.8 L 410) HEMATOCRIT (BEAKER) (test code = 21.0 % 40.0-50.0 L 411) SODIUM NA-STAT [id number] 11:54:00 Test Item Value Reference Range Interpretation Comments SODIUM (BEAKER) (test code = 381) 138 meq/L 135-148 POTASSIUM-STAT [id number] 11:54:00 Test Item Value Reference Range Interpretation Comments POTASSIUM (BEAKER) (test code = 3.9 meq/L 3.6-5.5 379) BLOOD GAS, [id number] 11:13:00 Test Item Value Reference Range Interpretation Comments PH ARTERIAL (BEAKER) (test code = 7.39 7.35-7.45 383) PCO2 ARTERIAL (BEAKER) (test code 46 mmHg 35-45 H = 384) PO2 ARTERIAL (BEAKER) (test code = 234 mmHg 80-90 H 385) O2 SATURATION ARTERIAL (BEAKER) 99.5 % 96.0-97.0 H (test code = 386) HCO3 ARTERIAL (BEAKER) (test code 27 mmol/L 21-29 = 388) BASE EXCESS ARTERIAL (BEAKER) 1.9 mmol/L -2.0-3.0 (test code = 387) PATIENT TEMPERATURE (BEAKER) (test 36.0 C code = 1818) FIO2 (BEAKER) (test code = 1819) 70.0 % GLUCOSE-STAT [id number] 11:13:00 Test Item Value Reference Range Interpretation Comments GLUCOSE RANDOM (BEAKER) (test code 142 mg/dL 70-110 H = 652) HGB/HCT (H&H) - STAT [id number] 11:13:00 Test Item Value Reference Range Interpretation Comments HEMOGLOBIN (BEAKER) (test code = 6.7 g/dL 13.0-16.8 L 410) HEMATOCRIT (BEAKER) (test code = 20.0 % 40.0-50.0 L 411) SODIUM NA-STAT [id number] 11:12:00 Test Item Value Reference Range Interpretation Comments SODIUM (BEAKER) (test code = 381) 136 meq/L 135-148 POTASSIUM-STAT [id number] 11:12:00 Test Item Value Reference Range Interpretation Comments POTASSIUM (BEAKER) (test code = 4.2 meq/L 3.6-5.5 379) BLOOD GAS, [id number] 10:54:00 Test Item Value Reference Range Interpretation Comments PH ARTERIAL (BEAKER) (test code = 7.48 7.35-7.45 H 383) PCO2 ARTERIAL (BEAKER) (test code 36 mmHg 35-45 = 384) PO2 ARTERIAL (BEAKER) (test code = 321 mmHg 80-90 H 385) O2 SATURATION ARTERIAL (BEAKER) 99.8 % 96.0-97.0 H (test code = 386) HCO3 ARTERIAL (BEAKER) (test code 29 mmol/L 21-29 = 388) BASE EXCESS ARTERIAL (BEAKER) 3.0 mmol/L -2.0-3.0 (test code = 387) PATIENT TEMPERATURE (BEAKER) (test 29.3 C code = 1818) FIO2 (BEAKER) (test code = 1819) 70.0 % GLUCOSE-STAT [id number] 10:54:00 Test Item Value Reference Range Interpretation Comments GLUCOSE RANDOM (BEAKER) (test code 123 mg/dL 70-110 H = 652) HGB/HCT (H&H) - STAT [id number] 10:54:00 Test Item Value Reference Range Interpretation Comments HEMOGLOBIN (BEAKER) (test code = 6.1 g/dL 13.0-16.8 L 410) HEMATOCRIT (BEAKER) (test code = 18.0 % 40.0-50.0 L 411) SODIUM NA-STAT [id number] 10:53:00 Test Item Value Reference Range Interpretation Comments SODIUM (BEAKER) (test code = 381) 137 meq/L 135-148 POTASSIUM-STAT [id number] 10:53:00 Test Item Value Reference Range Interpretation Comments POTASSIUM (BEAKER) (test code = 3.7 meq/L 3.6-5.5 379) BLOOD GAS, [id number] 09:43:00 Test Item Value Reference Range Interpretation Comments PH ARTERIAL (BEAKER) (test code = 7.49 7.35-7.45 H 383) PCO2 ARTERIAL (BEAKER) (test code 42 mmHg 35-45 = 384) PO2 ARTERIAL (BEAKER) (test code = 285 mmHg 80-90 H 385) O2 SATURATION ARTERIAL (BEAKER) 99.7 % 96.0-97.0 H (test code = 386) HCO3 ARTERIAL (BEAKER) (test code 31 mmol/L 21-29 H = 388) BASE EXCESS ARTERIAL (BEAKER) 7.1 mmol/L -2.0-3.0 H (test code = 387) PATIENT TEMPERATURE (BEAKER) (test 36.2 C code = 1818) FIO2 (BEAKER) (test code = 1819) 100.0 % POTASSIUM-STAT [id number] 09:43:00 Test Item Value Reference Range Interpretation Comments POTASSIUM (BEAKER) (test code = 3.4 meq/L 3.6-5.5 L 379) GLUCOSE-STAT [id number] 09:43:00 Test Item Value Reference Range Interpretation Comments GLUCOSE RANDOM (BEAKER) (test code 144 mg/dL 70-110 H = 652) HGB/HCT (H&H) - STAT [id number] 09:43:00 Test Item Value Reference Range Interpretation Comments HEMOGLOBIN (BEAKER) (test code = 9.1 g/dL 13.0-16.8 L 410) HEMATOCRIT (BEAKER) (test code = 27.0 % 40.0-50.0 L 411) SODIUM NA-STAT [id number] 09:42:00 Test Item Value Reference Range Interpretation Comments SODIUM (BEAKER) (test code = 381) 139 meq/L 135-148 POCT-GLUCOSE [id number] 07:41:00 Test Item Value Reference Range Interpretation Comments POC-GLUCOSE METER 147 mg/dL 70-110 H TESTED AT [facility] (BEAKER) (test code = [place] 1538) [address] COMPREHENSIVE METABOLIC [id number] 06:40:00 Test Item Value Reference Range Interpretation Comments TOTAL PROTEIN 6.4 gm/dL 6.0-8.3 (BEAKER) (test code = 770) ALBUMIN (BEAKER) 3.3 g/dL 3.5-5.0 L (test code = 1145) ALKALINE PHOSPHATASE 129 U/L 40-150 (BEAKER) (test code = 346) BILIRUBIN TOTAL 0.3 mg/dL 0.2-1.2 (BEAKER) (test code = 377) SODIUM (BEAKER) (test 142 meq/L 136-145 code = 381) POTASSIUM (BEAKER) 3.7 meq/L 3.5-5.1 (test code = 379) CHLORIDE (BEAKER) 102 meq/L 98-107 (test code = 382) CO2 (BEAKER) (test 28 meq/L 22-29 code = 355) BLOOD UREA NITROGEN 54 mg/dL 7-21 H (BEAKER) (test code = 354) CREATININE (BEAKER) 3.42 mg/dL 0.57-1.25 H (test code = 358) GLUCOSE RANDOM 134 mg/dL 70-105 H (BEAKER) (test code = 652) CALCIUM (BEAKER) 8.2 mg/dL 8.4-10.2 L (test code = 697) AST (SGOT) (BEAKER) 29 U/L 5-34 (test code = 353) ALT (SGPT) (BEAKER) 30 U/L 6-55 (test code = 347) EGFR (BEAKER) (test 19 mL/min/1.73 ESTIMA JAMIE GFR IS code = 1092) sq m NOT ACCURATE CREATININE CLEARANCE IN PREDICTING GLOMERULAR FILTRATION RATE . ESTIMATED GFR I S NOT APPLICABLE FOR DIALYSIS UMBERTO TS. B-TYPE NATRIURETIC FACTOR (BNP)[id number] 06:27:00 Test Item Value Reference Range Interpretation Comments B-TYPE NATRIURETIC PEPTIDE (BEAKER) 143 pg/mL 0-100 H (test code = 700) [id number] 06:25:00 Test Item Value Reference Range Interpretation Comments PHOSPHORUS (BEAKER) (test code = 4.8 mg/dL 2.3-4.7 H 604) [id number] 06:25:00 Test Item Value Reference Range Interpretation Comments MAGNESIUM (BEAKER) (test code = 1.9 mg/dL 1.6-2.6 627) CBC W/PLT COUNT & AUTO [id number] 06:02:00 Test Item Value Reference Range Interpretation Comments WHITE BLOOD CELL COUNT (BEAKER) 7.7 K/ L 3.5-10.5 (test code = 775) RED BLOOD CELL COUNT (BEAKER) 2.72 M/ L 4.63-6.08 L (test code = 761) HEMOGLOBIN (BEAKER) (test code = 8.2 GM/DL 13.7-17.5 L 410) HEMATOCRIT (BEAKER) (test code = 24.3 % 40.1-51.0 L 411) MEAN CORPUSCULAR VOLUME (BEAKER) 89.3 fL 79.0-92.2 (test code = 753) MEAN CORPUSCULAR HEMOGLOBIN 30.1 pg 25.7-32.2 (BEAKER) (test code = 751) MEAN CORPUSCULAR HEMOGLOBIN CONC 33.7 GM/DL 32.3-36.5 (BEAKER) (test code = 752) RED CELL DISTRIBUTION WIDTH 13.4 % 11.6-14.4 (BEAKER) (test code = 412) PLATELET COUNT (BEAKER) (test 306 K/CU MM 150-450 code = 756) MEAN PLATELET VOLUME (BEAKER) 8.6 fL 9.4-12.4 L (test code = 754) NUCLEATED RED BLOOD CELLS 0 /100 WBC 0-0 (BEAKER) (test code = 413) NEUTROPHILS RELATIVE PERCENT 71 % (BEAKER) (test code = 429) LYMPHOCYTES RELATIVE PERCENT 14 % (BEAKER) (test code = 430) MONOCYTES RELATIVE PERCENT 8 % (BEAKER) (test code = 431) EOSINOPHILS RELATIVE PERCENT 6 % (BEAKER) (test code = 432) BASOPHILS RELATIVE PERCENT 1 % (BEAKER) (test code = 437) NEUTROPHILS ABSOLUTE COUNT 5.45 K/ L 1.78-5.38 H (BEAKER) (test code = 670) LYMPHOCYTES ABSOLUTE COUNT 1.09 K/ L 1.32-3.57 L (BEAKER) (test code = 414) MONOCYTES ABSOLUTE COUNT (BEAKER) 0.64 K/ L 0.30-0.82 (test code = 415) EOSINOPHILS ABSOLUTE COUNT 0.43 K/ L 0.04-0.54 (BEAKER) (test code = 416) BASOPHILS ABSOLUTE COUNT (BEAKER) 0.04 K/ L 0.01-0.08 (test code = 417) IMMATURE GRANULOCYTES-RELATIVE 1 % 0-1 PERCENT (BEAKER) (test code = 2801) CALCIUM, [id number] 05:57:00 Test Item Value Reference Range Interpretation Comments CALCIUM IONIZED (BEAKER) (test 1.00 mmol/L 1.12-1.27 L code = 698) PH, BLOOD (BEAKER) (test code = 7.43 1810) POCT-GLUCOSE [id number] 22:33:00 Test Item Value Reference Range Interpretation Comments POC-GLUCOSE METER 173 mg/dL 70-110 H TESTED AT [place] [id number] [facility] (test code = CLAIRE May [facility] 1538) [address] POCT-GLUCOSE [id number] 21:57:00 Test Item Value Reference Range Interpretation Comments POC-GLUCOSE METER 154 mg/dL 70-110 H TESTED AT [facility] (test code = CLAIRE May [facility] 1538) [address] POCT-GLUCOSE [id number] 17:46:00 Test Item Value Reference Range Interpretation Comments POC-GLUCOSE METER 179 mg/dL 70-110 H TESTED AT [facility] (test code = CLAIRE May [place] 1538) [address] POCT-GLUCOSE [id number] 12:40:00 Test Item Value Reference Range Interpretation Comments POC-GLUCOSE METER 199 mg/dL 70-110 H TESTED AT [facility] (BEAKER) (test code = CLAIRE May [facility] 1538) [address] POCT-GLUCOSE [id number] 07:35:00 Test Item Value Reference Range Interpretation Comments POC-GLUCOSE METER 134 mg/dL 70-110 H TESTED AT [facility] (BEAKER) (test code = [place] 1538) [address] CBC W/PLT COUNT & AUTO [id number] 05:41:00 Test Item Value Reference Range Interpretation Comments WHITE BLOOD CELL COUNT (BEAKER) 8.4 K/ L 3.5-10.5 (test code = 775) RED BLOOD CELL COUNT (BEAKER) 2.46 M/ L 4.63-6.08 L (test code = 761) HEMOGLOBIN (BEAKER) (test code = 7.5 GM/DL 13.7-17.5 L 410) HEMATOCRIT (BEAKER) (test code = 22.5 % 40.1-51.0 L 411) MEAN CORPUSCULAR VOLUME (BEAKER) 91.5 fL 79.0-92.2 (test code = 753) MEAN CORPUSCULAR HEMOGLOBIN 30.5 pg 25.7-32.2 (BEAKER) (test code = 751) MEAN CORPUSCULAR HEMOGLOBIN CONC 33.3 GM/DL 32.3-36.5 (BEAKER) (test code = 752) RED CELL DISTRIBUTION WIDTH 13.4 % 11.6-14.4 (BEAKER) (test code = 412) PLATELET COUNT (BEAKER) (test 285 K/CU MM 150-450 code = 756) MEAN PLATELET VOLUME (BEAKER) 8.7 fL 9.4-12.4 L (test code = 754) NUCLEATED RED BLOOD CELLS 0 /100 WBC 0-0 (BEAKER) (test code = 413) NEUTROPHILS RELATIVE PERCENT 74 % (BEAKER) (test code = 429) LYMPHOCYTES RELATIVE PERCENT 12 % (BEAKER) (test code = 430) MONOCYTES RELATIVE PERCENT 9 % (BEAKER) (test code = 431) EOSINOPHILS RELATIVE PERCENT 4 % (BEAKER) (test code = 432) BASOPHILS RELATIVE PERCENT 1 % (BEAKER) (test code = 437) NEUTROPHILS ABSOLUTE COUNT 6.24 K/ L 1.78-5.38 H (BEAKER) (test code = 670) LYMPHOCYTES ABSOLUTE COUNT 0.97 K/ L 1.32-3.57 L (BEAKER) (test code = 414) MONOCYTES ABSOLUTE COUNT (BEAKER) 0.72 K/ L 0.30-0.82 (test code = 415) EOSINOPHILS ABSOLUTE COUNT 0.35 K/ L 0.04-0.54 (BEAKER) (test code = 416) BASOPHILS ABSOLUTE COUNT (BEAKER) 0.05 K/ L 0.01-0.08 (test code = 417) IMMATURE GRANULOCYTES-RELATIVE 1 % 0-1 PERCENT (BEAKER) (test code = 2801) COMPREHENSIVE METABOLIC [id number] 05:40:00 Test Item Value Reference Range Interpretation Comments TOTAL PROTEIN 5.9 gm/dL 6.0-8.3 L (BEAKER) (test code = 770) ALBUMIN (BEAKER) 3.0 g/dL 3.5-5.0 L (test code = 1145) ALKALINE PHOSPHATASE 119 U/L 40-150 (BEAKER) (test code = 346) BILIRUBIN TOTAL 0.3 mg/dL 0.2-1.2 (BEAKER) (test code = 377) SODIUM (BEAKER) (test 143 meq/L 136-145 code = 381) POTASSIUM (BEAKER) 3.8 meq/L 3.5-5.1 (test code = 379) CHLORIDE (BEAKER) 106 meq/L 98-107 (test code = 382) CO2 (BEAKER) (test 27 meq/L 22-29 code = 355) BLOOD UREA NITROGEN 52 mg/dL 7-21 H (BEAKER) (test code = 354) CREATININE (BEAKER) 3.44 mg/dL 0.57-1.25 H (test code = 358) GLUCOSE RANDOM 144 mg/dL 70-105 H (BEAKER) (test code = 652) CALCIUM (BEAKER) 8.0 mg/dL 8.4-10.2 L (test code = 697) AST (SGOT) (BEAKER) 29 U/L 5-34 (test code = 353) ALT (SGPT) (BEAKER) 26 U/L 6-55 (test code = 347) EGFR (BEAKER) (test 19 mL/min/1.73 ESTIMA JAMIE GFR IS code = 1092) sq m NOT ACCURATE CREATININE CLEARANCE IN PREDICTING GLOMERULAR FILTRATION RATE . ESTIMATED GFR I S NOT APPLICABLE FOR DIALYSIS PATIEN TS. [id number] 05:39:00 Test Item Value Reference Range Interpretation Comments PHOSPHORUS (BEAKER) (test code = 4.4 mg/dL 2.3-4.7 604) [id number] 05:39:00 Test Item Value Reference Range Interpretation Comments MAGNESIUM ([facility]) (test code = 1.9 mg/dL 1.6-2.6 627) [id number] 05:35:00 Test Item Value Reference Range Interpretation Comments PARTIAL THROMBOPLASTIN TIME 79.3 seconds 22.5-36.0 H ([facility]) (test code = 760) CALCIUM, [id number] 05:30:00 Test Item Value Reference Range Interpretation Comments CALCIUM IONIZED (AKER) (test 1.01 mmol/L 1.12-1.27 L code = 698) PH, BLOOD ([facility]) (test code = 7.36 1810) POCT-GLUCOSE [id number] 21:50:00 Test Item Value Reference Range Interpretation Comments POC-GLUCOSE METER 186 mg/dL 70-110 H TESTED AT [place] [address] ([facility]) (test code = [facility] 1538) [id number] POCT-GLUCOSE [id number] 17:08:00 Test Item Value Reference Range Interpretation Comments POC-GLUCOSE METER 173 mg/dL 70-110 H TESTED AT [place] [address] ([facility]) (test code = [facility] 1538) [address] POCT-GLUCOSE [id number] 11:42:00 Test Item Value Reference Range Interpretation Comments POC-GLUCOSE METER 220 mg/dL 70-110 H TESTED AT [place] [address] ([facility]) (test code = [facility] 1538) [address] PLATELET AGGREGATION: DRUG [id number] 11:35:00 Test Item Value Reference Range Interpretation Comments STRONG ADP 93 % 70-94 RESULT(AKER) (test code = 2137) WEAK ADP RESULT([facility]) 79 % 60-91 (test code = 2135) ARACHADONIC ACID 35 % 63-89 L RESULT([facility]) (test code = 2138) PLATELET AGG DRUG Results with INTERPRETATION (BEAKER) arachidonic acid (test code = 2408) decreased. PLATELET AGG DRUG Decreased response to INTERPRETATION (BEAKER) arachidonic acid (test code = 495364) suggests aspirin-like effect. [id number] Gallo Brooks MD ([facility]) (test code = (uflwhnulso 8386) signature) PLATELET COUNT AGG 362 K/CU MM 150-450 (BEAKER) (test code = 2656) POCT-GLUCOSE [id number] 07:35:00 Test Item Value Reference Range Interpretation Comments POC-GLUCOSE METER 128 mg/dL 70-110 H TESTED AT [facility] 6720 (BEAKER) (test code = [place] 1538) [id number] COMPREHENSIVE METABOLIC [id number] 06:10:00 Test Item Value Reference Range Interpretation Comments TOTAL PROTEIN 6.6 gm/dL 6.0-8.3 (BEAKER) (test code = 770) ALBUMIN (BEAKER) 3.3 g/dL 3.5-5.0 L (test code = 1145) ALKALINE PHOSPHATASE 120 U/L 40-150 (BEAKER) (test code = 346) BILIRUBIN TOTAL 0.4 mg/dL 0.2-1.2 (BEAKER) (test code = 377) SODIUM (BEAKER) (test 143 meq/L 136-145 code = 381) POTASSIUM (BEAKER) 3.9 meq/L 3.5-5.1 (test code = 379) CHLORIDE (BEAKER) 105 meq/L 98-107 (test code = 382) CO2 (BEAKER) (test 26 meq/L 22-29 code = 355) BLOOD UREA NITROGEN 55 mg/dL 7-21 H (BEAKER) (test code = 354) CREATININE (BEAKER) 3.53 mg/dL 0.57-1.25 H (test code = 358) GLUCOSE RANDOM 106 mg/dL 70-105 H (BEAKER) (test code = 652) CALCIUM (BEAKER) 8.0 mg/dL 8.4-10.2 L (test code = 697) AST (SGOT) (BEAKER) 34 U/L 5-34 (test code = 353) ALT (SGPT) (BEAKER) 23 U/L 6-55 (test code = 347) EGFR (BEAKER) (test 18 mL/min/1.73 ESTIMA JAMIE GFR IS code = 1092) sq m NOT ACCURATE CREATININE CLEARANCE IN PREDICTING GLOMERULAR FILTRATION RATE . ESTIMATED GFR I S NOT APPLICABLE FOR DIALYSIS PATIEN TS. [id number] 06:07:00 Test Item Value Reference Range Interpretation Comments PHOSPHORUS (BEAKER) (test code = 4.8 mg/dL 2.3-4.7 H 604) [id number] 06:07:00 Test Item Value Reference Range Interpretation Comments MAGNESIUM (BEAKER) (test code = 2.0 mg/dL 1.6-2.6 627) CALCIUM, [id number] 05:50:00 Test Item Value Reference Range Interpretation Comments CALCIUM IONIZED (BEAKER) (test 1.00 mmol/L 1.12-1.27 L code = 698) PH, BLOOD (BEAKER) (test code = 7.38 1810) [id number] 05:43:00 Test Item Value Reference Range Interpretation Comments PARTIAL THROMBOPLASTIN TIME 73.6 seconds 22.5-36.0 H (BEAKER) (test code = 760) CBC W/PLT COUNT & AUTO [id number] 05:43:00 Test Item Value Reference Range Interpretation Comments WHITE BLOOD CELL COUNT (BEAKER) 8.2 K/ L 3.5-10.5 (test code = 775) RED BLOOD CELL COUNT (BEAKER) 2.66 M/ L 4.63-6.08 L (test code = 761) HEMOGLOBIN (BEAKER) (test code = 8.2 GM/DL 13.7-17.5 L 410) HEMATOCRIT (BEAKER) (test code = 24.7 % 40.1-51.0 L 411) MEAN CORPUSCULAR VOLUME (BEAKER) 92.9 fL 79.0-92.2 H (test code = 753) MEAN CORPUSCULAR HEMOGLOBIN 30.8 pg 25.7-32.2 (BEAKER) (test code = 751) MEAN CORPUSCULAR HEMOGLOBIN CONC 33.2 GM/DL 32.3-36.5 (BEAKER) (test code = 752) RED CELL DISTRIBUTION WIDTH 13.6 % 11.6-14.4 (BEAKER) (test code = 412) PLATELET COUNT (BEAKER) (test 334 K/CU MM 150-450 code = 756) MEAN PLATELET VOLUME (BEAKER) 8.5 fL 9.4-12.4 L (test code = 754) NUCLEATED RED BLOOD CELLS 0 /100 WBC 0-0 (BEAKER) (test code = 413) NEUTROPHILS RELATIVE PERCENT 74 % (BEAKER) (test code = 429) LYMPHOCYTES RELATIVE PERCENT 13 % (BEAKER) (test code = 430) MONOCYTES RELATIVE PERCENT 8 % (BEAKER) (test code = 431) EOSINOPHILS RELATIVE PERCENT 5 % (BEAKER) (test code = 432) BASOPHILS RELATIVE PERCENT 0 % (BEAKER) (test code = 437) NEUTROPHILS ABSOLUTE COUNT 6.05 K/ L 1.78-5.38 H (BEAKER) (test code = 670) LYMPHOCYTES ABSOLUTE COUNT 1.04 K/ L 1.32-3.57 L (BEAKER) (test code = 414) MONOCYTES ABSOLUTE COUNT (BEAKER) 0.68 K/ L 0.30-0.82 (test code = 415) EOSINOPHILS ABSOLUTE COUNT 0.40 K/ L 0.04-0.54 (BEAKER) (test code = 416) BASOPHILS ABSOLUTE COUNT (BEAKER) 0.02 K/ L 0.01-0.08 (test code = 417) IMMATURE GRANULOCYTES-RELATIVE 1 % 0-1 PERCENT (BEAKER) (test code = 2801) POCT-GLUCOSE [id number] 03:44:00 Test Item Value Reference Range Interpretation Comments POC-GLUCOSE METER 135 mg/dL 70-110 H [facility] [place] [address] [facility] (test code = [facility] 1538) [address] POCT-GLUCOSE [id number] 21:11:00 Test Item Value Reference Range Interpretation Comments POC-GLUCOSE METER 178 mg/dL 70-110 H TESTED AT [place] [address] ([facility]) (test code = [facility] 1538) [address] POCT-GLUCOSE [id number] 15:45:00 Test Item Value Reference Range Interpretation Comments POC-GLUCOSE METER 212 mg/dL 70-110 H TESTED AT [place] [address] ([facility]) (test code = [facility] 1538) [address] PLATELET AGGREGATION: DRUG [id number] 13:16:00 Test Item Value Reference Range Interpretation Comments STRONG ADP 75 % 70-94 RESULT(BEAKER) (test code = 2137) WEAK ADP RESULT(BEAKER) 74 % 60-91 (test code = 2135) ARACHADONIC ACID 21 % 63-89 L RESULT(BEAKER) (test code = 2138) PLATELET AGG DRUG Results with INTERPRETATION (BEAKER) arachidonic acid (test code = 2408) decreased. PLATELET AGG DRUG Decreased response to INTERPRETATION (BEAKER) arachidonic acid (test code = 498372) suggests aspirin-like effect. [id number] Gallo Brooks MD (BEAKER) (test code = (electronic 2621) signature) PLATELET COUNT AGG 268 K/CU MM 150-450 (BEAKER) (test code = 2656) POCT-GLUCOSE [id number] 13:01:00 Test Item Value Reference Range Interpretation Comments POC-GLUCOSE METER 217 mg/dL 70-110 H TEST[facility] AT [facility] (test code = [facility] [place] 1538) [address] POCT-GLUCOSE [id number] 08:05:00 Test Item Value Reference Range Interpretation Comments POC-GLUCOSE METER 105 mg/dL 70-110 TESTED AT [facility] [address] ([facility]) (test code = [facility] 1538) [address] BASIC METABOLIC [id number] 07:30:00 Test Item Value Reference Range Interpretation Comments SODIUM (BEAKER) 143 meq/L 136-145 (test code = 381) POTASSIUM (BEAKER) 3.6 meq/L 3.5-5.1 (test code = 379) CHLORIDE (BEAKER) 107 meq/L 98-107 (test code = 382) CO2 (BEAKER) (test 26 meq/L 22-29 code = 355) BLOOD UREA NITROGEN 55 mg/dL 7-21 H (BEAKER) (test code = 354) CREATININE (BEAKER) 3.57 mg/dL 0.57-1.25 H (test code = 358) GLUCOSE RANDOM 92 mg/dL 70-105 (BEAKER) (test code = 652) CALCIUM (BEAKER) 7.6 mg/dL 8.4-10.2 L (test code = 697) EGFR (BEAKER) (test 18 mL/min/1.73 ESTIMA JAMIE GFR IS code = 1092) sq m NOT ACCURATE CREATININE CLEARANCE IN PREDICTING GLOMERULAR FILTRATION RATE . ESTIMATED GFR I S NOT APPLICABLE FOR DIALYSIS PATIEN TS. [id number] 07:23:00 Test Item Value Reference Range Interpretation Comments MAGNESIUM (BEAKER) (test code = 2.0 mg/dL 1.6-2.6 627) [id number] 06:44:00 Test Item Value Reference Range Interpretation Comments PARTIAL THROMBOPLASTIN TIME 80.9 seconds 22.5-36.0 H (BEAKER) (test code = 760) CBC (HEMOGRAM ONLY)2017-10-08 06:34:00 Test Item Value Reference Range Interpretation Comments WHITE BLOOD CELL COUNT (BEAKER) 8.2 K/ L 3.5-10.5 (test code = 775) RED BLOOD CELL COUNT (BEAKER) 2.54 M/ L 4.63-6.08 L (test code = 761) HEMOGLOBIN (BEAKER) (test code = 7.9 GM/DL 13.7-17.5 L 410) HEMATOCRIT (BEAKER) (test code = 23.3 % 40.1-51.0 L 411) MEAN CORPUSCULAR VOLUME (BEAKER) 91.7 fL 79.0-92.2 (test code = 753) MEAN CORPUSCULAR HEMOGLOBIN 31.1 pg 25.7-32.2 (BEAKER) (test code = 751) MEAN CORPUSCULAR HEMOGLOBIN CONC 33.9 GM/DL 32.3-36.5 (BEAKER) (test code = 752) RED CELL DISTRIBUTION WIDTH 13.7 % 11.6-14.4 (BEAKER) (test code = 412) PLATELET COUNT (BEAKER) (test 274 K/CU MM 150-450 code = 756) MEAN PLATELET VOLUME (BEAKER) 8.4 fL 9.4-12.4 L (test code = 754) NUCLEATED RED BLOOD CELLS 0 /100 WBC 0-0 (BEAKER) (test code = 413) POCT-GLUCOSE [id number] 22:55:00 Test Item Value Reference Range Interpretation Comments POC-GLUCOSE METER 195 mg/dL 70-110 H TESTED AT [place] [address] ([facility]) (test code = [place] 1538) [address] POCT-GLUCOSE [id number] 17:32:00 Test Item Value Reference Range Interpretation Comments POC-GLUCOSE METER 252 mg/dL 70-110 H TESTED AT [place] [address] ([facility]) (test code = [place] 1538) [address] [id number] 12:36:00 Test Item Value Reference Range Interpretation Comments PARTIAL THROMBOPLASTIN TIME 66.2 seconds 22.5-36.0 H ([facility]) (test code = 760) HEMOGLOBIN AND [id number] 12:21:00 Test Item Value Reference Range Interpretation Comments HEMOGLOBIN (BEAKER) (test code = 7.9 GM/DL 13.7-17.5 L 410) HEMATOCRIT (BEAKER) (test code = 24.0 % 40.1-51.0 L 411) POCT-GLUCOSE [id number] 12:16:00 Test Item Value Reference Range Interpretation Comments POC-GLUCOSE METER 229 mg/dL 70-110 H TESTED AT [place] [address] ([facility]) (test code = [facility] 1538) [address] [id number] 10:04:00 Test Item Value Reference Range Interpretation Comments FERRITIN (BEAKER) (test code = 361) 780 ng/mL 5-275 H IRON, TIBC, % SAT. (WITHOUT FERRITIN)2017-10-07 08:41:00 Test Item Value Reference Range Interpretation Comments IRON (BEAKER) (test code = 547) 55 ug/dL 40-160 TOTAL IRON BINDING CAPACITY 149 ug/dL 250-450 L (BEAKER) (test code = 769) IRON % SATURATION (2) (BEAKER) 37 % 20-55 (test code = 2590) POCT-GLUCOSE [id number] 08:03:00 Test Item Value Reference Range Interpretation Comments POC-GLUCOSE METER 163 mg/dL 70-110 H TESTED AT [place] [address] ([facility]) (test code = [facility] 1538) [address] CBC (HEMOGRAM ONLY)2017-10-07 06:22:00 Test Item Value Reference Range Interpretation Comments WHITE BLOOD CELL COUNT (BEAKER) 7.9 K/ L 3.5-10.5 (test code = 775) RED BLOOD CELL COUNT (BEAKER) 2.46 M/ L 4.63-6.08 L (test code = 761) HEMOGLOBIN (BEAKER) (test code = 7.4 GM/DL 13.7-17.5 L 410) HEMATOCRIT (BEAKER) (test code = 22.7 % 40.1-51.0 L 411) MEAN CORPUSCULAR VOLUME (BEAKER) 92.3 fL 79.0-92.2 H (test code = 753) MEAN CORPUSCULAR HEMOGLOBIN 30.1 pg 25.7-32.2 (BEAKER) (test code = 751) MEAN CORPUSCULAR HEMOGLOBIN CONC 32.6 GM/DL 32.3-36.5 (BEAKER) (test code = 752) RED CELL DISTRIBUTION WIDTH 13.6 % 11.6-14.4 (BEAKER) (test code = 412) PLATELET COUNT (BEAKER) (test 270 K/CU MM 150-450 code = 756) MEAN PLATELET VOLUME (BEAKER) 8.3 fL 9.4-12.4 L (test code = 754) NUCLEATED RED BLOOD CELLS 0 /100 WBC 0-0 (BEAKER) (test code = 413) BASIC METABOLIC [id number] 06:21:00 Test Item Value Reference Range Interpretation Comments SODIUM (BEAKER) 143 meq/L 136-145 (test code = 381) POTASSIUM (BEAKER) 3.7 meq/L 3.5-5.1 (test code = 379) CHLORIDE (BEAKER) 108 meq/L 98-107 H (test code = 382) CO2 (BEAKER) (test 24 meq/L 22-29 code = 355) BLOOD UREA NITROGEN 56 mg/dL 7-21 H (BEAKER) (test code = 354) CREATININE (BEAKER) 4.00 mg/dL 0.57-1.25 H (test code = 358) GLUCOSE RANDOM 150 mg/dL 70-105 H (BEAKER) (test code = 652) CALCIUM (BEAKER) 7.6 mg/dL 8.4-10.2 L (test code = 697) EGFR (BEAKER) (test 16 mL/min/1.73 ESTIMA JAMIE GFR IS code = 1092) sq m NOT ACCURATE CREATININE CLEARANCE IN PREDICTING GLOMERULAR FILTRATION RATE . ESTIMATED GFR I S NOT APPLICABLE FOR DIALYSIS PATIEN TS. [id number] 06:16:00 Test Item Value Reference Range Interpretation Comments MAGNESIUM (BEAKER) (test code = 2.2 mg/dL 1.6-2.6 627) [id number] 06:00:00 Test Item Value Reference Range Interpretation Comments PARTIAL THROMBOPLASTIN TIME 65.3 seconds 22.5-36.0 H (BEAKER) (test code = 760) POCT-GLUCOSE [id number] 22:59:00 Test Item Value Reference Range Interpretation Comments POC-GLUCOSE METER 218 mg/dL 70-110 H TESTED AT [facility] (BEAKER) (test code = [place] 1538) [address] [id number] 21:29:00 Test Item Value Reference Range Interpretation Comments PARTIAL THROMBOPLASTIN TIME 56.9 seconds 22.5-36.0 H ([facility]) (test code = 760) POCT-GLUCOSE [id number] 17:56:00 Test Item Value Reference Range Interpretation Comments POC-GLUCOSE METER 129 mg/dL 70-110 H TESTED AT [facility] [address] ([facility]) (test code = [facility] 1538) [address] [id number] 14:24:00 Test Item Value Reference Range Interpretation Comments PARTIAL THROMBOPLASTIN TIME 51.1 seconds 22.5-36.0 H ([facility]) (test code = 760) HEMOGLOBIN AND [id number] 14:03:00 Test Item Value Reference Range Interpretation Comments [facility] (test code = 8.1 GM/DL 13.7-17.5 L 410) HEMATOCRIT ([facility]) (test code = 24.3 % 40.1-51.0 L 411) POCT-GLUCOSE [id number] 12:21:00 Test Item Value Reference Range Interpretation Comments POC-GLUCOSE METER 267 mg/dL 70-110 H TESTED AT [place] [address] ([facility]) (test code = [facility] [facility] 1538) [address] POCT-GLUCOSE [id number] 07:30:00 Test Item Value Reference Range Interpretation Comments POC-GLUCOSE METER 156 mg/dL 70-110 H TESTED AT [place] [address] ([facility]) (test code = [facility] [facility] 1538) [address] [id number] 07:03:00 Test Item Value Reference Range Interpretation Comments PARTIAL THROMBOPLASTIN TIME 58.5 seconds 22.5-36.0 H ([facility]) (test code = 760) COMPREHENSIVE METABOLIC [id number] 04:05:00 Test Item Value Reference Range Interpretation Comments TOTAL PROTEIN 5.8 gm/dL 6.0-8.3 L (AKER) (test code = 770) ALBUMIN ([facility]) 2.9 g/dL 3.5-5.0 L (test code = 1145) ALKALINE PHOSPHATASE 115 U/L 40-150 ([facility]) (test code = 346) BILIRUBIN TOTAL 0.3 mg/dL 0.2-1.2 (BEAKER) (test code = 377) SODIUM (BEAKER) (test 144 meq/L 136-145 code = 381) POTASSIUM (BEAKER) 3.4 meq/L 3.5-5.1 L (test code = 379) CHLORIDE (BEAKER) 106 meq/L 98-107 (test code = 382) CO2 (BEAKER) (test 26 meq/L 22-29 code = 355) BLOOD UREA NITROGEN 53 mg/dL 7-21 H (BEAKER) (test code = 354) CREATININE (BEAKER) 3.73 mg/dL 0.57-1.25 H (test code = 358) GLUCOSE RANDOM 181 mg/dL 70-105 H (BEAKER) (test code = 652) CALCIUM (BEAKER) 7.4 mg/dL 8.4-10.2 L (test code = 697) AST (SGOT) (BEAKER) 17 U/L 5-34 (test code = 353) ALT (SGPT) (BEAKER) 15 U/L 6-55 (test code = 347) EGFR (BEAKER) (test 17 mL/min/1.73 ESTIMA JAMIE GFR IS code = 1092) sq m NOT ACCURATE CREATININE CLEARANCE IN PREDICTING GLOMERULAR FILTRATION RATE . ESTIMATED GFR I S NOT APPLICABLE FOR DIALYSIS PATIEN TS. CALCIUM, [id number] 03:42:00 Test Item Value Reference Range Interpretation Comments CALCIUM IONIZED (BEAKER) (test 0.95 mmol/L 1.12-1.27 L code = 698) PH, BLOOD (BEAKER) (test code = 7.36 1810) [id number] 03:40:00 Test Item Value Reference Range Interpretation Comments PHOSPHORUS (BEAKER) (test code = 5.2 mg/dL 2.3-4.7 H 604) [id number] 03:40:00 Test Item Value Reference Range Interpretation Comments MAGNESIUM (BEAKER) (test code = 2.2 mg/dL 1.6-2.6 627) CBC W/PLT COUNT & AUTO [id number] 03:02:00 Test Item Value Reference Range Interpretation Comments WHITE BLOOD CELL COUNT (BEAKER) 7.6 K/ L 3.5-10.5 (test code = 775) RED BLOOD CELL COUNT (BEAKER) 2.51 M/ L 4.63-6.08 L (test code = 761) HEMOGLOBIN (BEAKER) (test code = 7.5 GM/DL 13.7-17.5 L 410) HEMATOCRIT (BEAKER) (test code = 22.7 % 40.1-51.0 L 411) MEAN CORPUSCULAR VOLUME (BEAKER) 90.4 fL 79.0-92.2 (test code = 753) MEAN CORPUSCULAR HEMOGLOBIN 29.9 pg 25.7-32.2 (BEAKER) (test code = 751) MEAN CORPUSCULAR HEMOGLOBIN CONC 33.0 GM/DL 32.3-36.5 (BEAKER) (test code = 752) RED CELL DISTRIBUTION WIDTH 13.7 % 11.6-14.4 (BEAKER) (test code = 412) PLATELET COUNT (BEAKER) (test 306 K/CU MM 150-450 code = 756) MEAN PLATELET VOLUME (BEAKER) 8.4 fL 9.4-12.4 L (test code = 754) NUCLEATED RED BLOOD CELLS 0 /100 WBC 0-0 (BEAKER) (test code = 413) NEUTROPHILS RELATIVE PERCENT 69 % (BEAKER) (test code = 429) LYMPHOCYTES RELATIVE PERCENT 16 % (BEAKER) (test code = 430) MONOCYTES RELATIVE PERCENT 10 % (BEAKER) (test code = 431) EOSINOPHILS RELATIVE PERCENT 4 % (BEAKER) (test code = 432) BASOPHILS RELATIVE PERCENT 0 % (BEAKER) (test code = 437) NEUTROPHILS ABSOLUTE COUNT 5.26 K/ L 1.78-5.38 (BEAKER) (test code = 670) LYMPHOCYTES ABSOLUTE COUNT 1.18 K/ L 1.32-3.57 L (BEAKER) (test code = 414) MONOCYTES ABSOLUTE COUNT (BEAKER) 0.75 K/ L 0.30-0.82 (test code = 415) EOSINOPHILS ABSOLUTE COUNT 0.33 K/ L 0.04-0.54 (BEAKER) (test code = 416) BASOPHILS ABSOLUTE COUNT (BEAKER) 0.02 K/ L 0.01-0.08 (test code = 417) IMMATURE GRANULOCYTES-RELATIVE 1 % 0-1 PERCENT (BEAKER) (test code = 2801) POCT-GLUCOSE [id number] 21:43:00 Test Item Value Reference Range Interpretation Comments POC-GLUCOSE METER 188 mg/dL 70-110 H TESTED AT [place] [address] ([facility]) (test code = [facility] 1538) [address] [id number] 18:44:00 Test Item Value Reference Range Interpretation Comments PARTIAL THROMBOPLASTIN TIME 43.0 seconds 22.5-36.0 H ([facility]) (test code = 760) [id number] 17:49:00 Test Item Value Reference Range Interpretation Comments POTASSIUM ([facility]) (test code = 3.1 meq/L 3.5-5.1 L 379) [id number] 17:49:00 Test Item Value Reference Range Interpretation Comments MAGNESIUM ([facility]) (test code = 2.0 mg/dL 1.6-2.6 627) POCT-GLUCOSE [id number] 17:48:00 Test Item Value Reference Range Interpretation Comments POC-GLUCOSE METER 170 mg/dL 70-110 H TESTED AT [place] [address] ([facility]) (test code = [facility] 1538) [address] POCT-GLUCOSE [id number] 12:21:00 Test Item Value Reference Range Interpretation Comments POC-GLUCOSE METER 210 mg/dL 70-110 H TESTED AT [place] [address] ([facility]) (test code = [place] [facility] 1538) [address] POCT-GLUCOSE [id number] 08:10:00 Test Item Value Reference Range Interpretation Comments POC-GLUCOSE METER 123 mg/dL 70-110 H TESTED AT [place] [address] ([facility]) (test code = [facility] 1538) [address] [id number] 05:59:00 Test Item Value Reference Range Interpretation Comments ACTIVATED CLOTTING TIME 136 sec TEST ED AT [place] [address] ([facility]) (test code = [place] [address]) [address] B-TYPE NATRIURETIC FACTOR (BNP)2017-10-05 05:08:00 Test Item Value Reference Range Interpretation Comments B-TYPE NATRIURETIC PEPTIDE ([facility]) 442 pg/mL 0-100 H (test code = 700) [id number] 05:08:00 Test Item Value Reference Range Interpretation Comments PHOSPHORUS ([facility]) (test code = 5.0 mg/dL 2.3-4.7 H 604) [id number] 05:08:00 Test Item Value Reference Range Interpretation Comments MAGNESIUM (BEAKER) (test code = 1.7 mg/dL 1.6-2.6 627) CREATINE KINASE (CK)2017-10-05 05:08:00 Test Item Value Reference Range Interpretation Comments CREATINE KINASE TOTAL (BEAKER) (test 745 U/L 29-200 H code = 380) COMPREHENSIVE METABOLIC [id number] 05:08:00 Test Item Value Reference Range Interpretation Comments TOTAL PROTEIN 6.2 gm/dL 6.0-8.3 (BEAKER) (test code = 770) ALBUMIN (BEAKER) 3.1 g/dL 3.5-5.0 L (test code = 1145) ALKALINE PHOSPHATASE 121 U/L 40-150 (BEAKER) (test code = 346) BILIRUBIN TOTAL 0.4 mg/dL 0.2-1.2 (BEAKER) (test code = 377) SODIUM (BEAKER) (test 147 meq/L 136-145 H code = 381) POTASSIUM (BEAKER) 3.0 meq/L 3.5-5.1 L (test code = 379) CHLORIDE (BEAKER) 109 meq/L 98-107 H (test code = 382) CO2 (BEAKER) (test 25 meq/L 22-29 code = 355) BLOOD UREA NITROGEN 53 mg/dL 7-21 H (BEAKER) (test code = 354) CREATININE (BEAKER) 3.55 mg/dL 0.57-1.25 H (test code = 358) GLUCOSE RANDOM 93 mg/dL 70-105 (BEAKER) (test code = 652) CALCIUM (BEAKER) 7.7 mg/dL 8.4-10.2 L (test code = 697) AST (SGOT) (BEAKER) 23 U/L 5-34 (test code = 353) ALT (SGPT) (BEAKER) 19 U/L 6-55 (test code = 347) EGFR (BEAKER) (test 18 mL/min/1.73 ESTIMA JAMIE GFR IS code = 1092) sq m NOT ACCURATE CREATININE CLEARANCE IN PREDICTING GLOMERULAR FILTRATION RATE . ESTIMATED GFR I S NOT APPLICABLE FOR DIALYSIS PATIEN TS. CALCIUM, [id number] 04:41:00 Test Item Value Reference Range Interpretation Comments CALCIUM IONIZED (BEAKER) (test 0.92 mmol/L 1.12-1.27 L code = 698) PH, BLOOD (BEAKER) (test code = 7.37 1810) CBC W/PLT COUNT & AUTO [id number] 04:37:00 Test Item Value Reference Range Interpretation Comments WHITE BLOOD CELL COUNT (BEAKER) 11.9 K/ L 3.5-10.5 H (test code = 775) RED BLOOD CELL COUNT (BEAKER) 2.79 M/ L 4.63-6.08 L (test code = 761) HEMOGLOBIN (BEAKER) (test code = 8.5 GM/DL 13.7-17.5 L 410) HEMATOCRIT (BEAKER) (test code = 25.2 % 40.1-51.0 L 411) MEAN CORPUSCULAR VOLUME (BEAKER) 90.3 fL 79.0-92.2 (test code = 753) MEAN CORPUSCULAR HEMOGLOBIN 30.5 pg 25.7-32.2 (BEAKER) (test code = 751) MEAN CORPUSCULAR HEMOGLOBIN CONC 33.7 GM/DL 32.3-36.5 (BEAKER) (test code = 752) RED CELL DISTRIBUTION WIDTH 13.9 % 11.6-14.4 (BEAKER) (test code = 412) PLATELET COUNT (BEAKER) (test 325 K/CU MM 150-450 code = 756) MEAN PLATELET VOLUME (BEAKER) 8.3 fL 9.4-12.4 L (test code = 754) NUCLEATED RED BLOOD CELLS 0 /100 WBC 0-0 (BEAKER) (test code = 413) NEUTROPHILS RELATIVE PERCENT 80 % (BEAKER) (test code = 429) LYMPHOCYTES RELATIVE PERCENT 9 % (BEAKER) (test code = 430) MONOCYTES RELATIVE PERCENT 7 % (BEAKER) (test code = 431) EOSINOPHILS RELATIVE PERCENT 3 % (BEAKER) (test code = 432) BASOPHILS RELATIVE PERCENT 0 % (BEAKER) (test code = 437) NEUTROPHILS ABSOLUTE COUNT 9.59 K/ L 1.78-5.38 H (BEAKER) (test code = 670) LYMPHOCYTES ABSOLUTE COUNT 1.07 K/ L 1.32-3.57 L (BEAKER) (test code = 414) MONOCYTES ABSOLUTE COUNT (BEAKER) 0.83 K/ L 0.30-0.82 H (test code = 415) EOSINOPHILS ABSOLUTE COUNT 0.33 K/ L 0.04-0.54 (BEAKER) (test code = 416) BASOPHILS ABSOLUTE COUNT (BEAKER) 0.04 K/ L 0.01-0.08 (test code = 417) IMMATURE GRANULOCYTES-RELATIVE 1 % 0-1 PERCENT (BEAKER) (test code = 2801) CBC (HEMOGRAM ONLY)2017-10-05 04:33:00 Test Item Value Reference Range Interpretation Comments WHITE BLOOD CELL COUNT (BEAKER) 11.9 K/ L 3.5-10.5 H (test code = 775) RED BLOOD CELL COUNT (BEAKER) 2.79 M/ L 4.63-6.08 L (test code = 761) HEMOGLOBIN (BEAKER) (test code = 8.5 GM/DL 13.7-17.5 L 410) HEMATOCRIT (BEAKER) (test code = 25.2 % 40.1-51.0 L 411) MEAN CORPUSCULAR VOLUME (BEAKER) 90.3 fL 79.0-92.2 (test code = 753) MEAN CORPUSCULAR HEMOGLOBIN 30.5 pg 25.7-32.2 (BEAKER) (test code = 751) MEAN CORPUSCULAR HEMOGLOBIN CONC 33.7 GM/DL 32.3-36.5 (BEAKER) (test code = 752) RED CELL DISTRIBUTION WIDTH 13.9 % 11.6-14.4 (BEAKER) (test code = 412) PLATELET COUNT (BEAKER) (test 325 K/CU MM 150-450 code = 756) MEAN PLATELET VOLUME (BEAKER) 8.3 fL 9.4-12.4 L (test code = 754) NUCLEATED RED BLOOD CELLS 0 /100 WBC 0-0 (BEAKER) (test code = 413) [id number] 04:31:00 Test Item Value Reference Range Interpretation Comments ACTIVATED CLOTTING TIME 142 sec TEST ED [facility] [place] [address] [facility] (test code = [place] [address]) [id number] 04:31:00 Test Item Value Reference Range Interpretation Comments ACTIVATED CLOTTING TIME 147 sec TEST ED AT [place] [address] ([facility]) (test code = [place] [address]) [id number] 02:10:00 Test Item Value Reference Range Interpretation Comments ACTIVATED CLOTTING TIME 175 sec TEST ED AT [place] [address] ([facility]) (test code = [place] [address]) [id number] 02:10:00 Test Item Value Reference Range Interpretation Comments ACTIVATED CLOTTING TIME 219 sec TEST ED AT [place] [address] ([facility]) (test code = [place] [address]) [id number] 23:46:00 Test Item Value Reference Range Interpretation Comments ACTIVATED CLOTTING TIME 202 sec TEST ED AT [place] [address] ([facility]) (test code = [place] [facility] 441) [id number] POCT-GLUCOSE [id number] 21:57:00 Test Item Value Reference Range Interpretation Comments POC-GLUCOSE METER 103 mg/dL 70-110 TESTED AT [place] [address] ([facility]) (test code = [place] [facility] 1538) [address] POCT-GLUCOSE [id number] 16:39:00 Test Item Value Reference Range Interpretation Comments POC-GLUCOSE METER 201 mg/dL 70-110 H TESTED AT [place] [address] ([facility]) (test code = [place] [facility] 1538) [id number] 16:28:00 Test Item Value Reference Range Interpretation Comments PARTIAL THROMBOPLASTIN TIME 33.9 seconds 22.5-36.0 ([facility]) (test code = 760) Prior to initiating heparinPLATELET [id number] 16:16:00 Test Item Value Reference Range Interpretation Comments PLATELET COUNT ([facility]) (test 338 K/CU MM 150-450 code = 756) TROPONIN [id number] 14:24:00 Test Item Value Reference Range Interpretation Comments TROPONIN I ([facility]) (test code = 2.59 ng/mL 0.00-0.03 397) Troponin I (TnI) levels must be interpreted in the context of the presenting symptoms and the clinical findings. Elevated TnI levels indicate myocardial damage, but are not specific for ischemic heart disease. Elevated TnI levels are seen in patients with other cardiac conditions (including myocarditis and congestive heart failure), and slight TnI elevations occur in patients with other conditions, including sepsis, renal failure, acidosis, acute neurological disease, and persistent tachyarrhythmia.HEMOGLOBIN [id number] 11:00:00 Test Item Value Reference Range Interpretation Comments HEMOGLOBIN A1C (BEAKER) (test code = 5.7 % 4.3-6.1 368) CALCIUM, [id number] 08:11:00 Test Item Value Reference Range Interpretation Comments CALCIUM IONIZED (BEAKER) (test 0.82 mmol/L 1.12-1.27 L code = 698) PH, BLOOD (BEAKER) (test code = 7.45 1810) POCT-GLUCOSE [id number] 07:34:00 Test Item Value Reference Range Interpretation Comments POC-GLUCOSE METER 256 mg/dL 70-110 H TESTED AT [facility] 6720 (BEAKER) (test code = CLAIRE HOFFMAN 1538) [address] TSH/FREE T4 IF [id number] 05:39:00 Test Item Value Reference Range Interpretation Comments THYROID STIMULATING HORMONE 2.64 uIU/mL 0.35-4.94 (BEAKER) (test code = 772) TROPONIN [id number] 05:20:00 Test Item Value Reference Range Interpretation Comments TROPONIN I (BEAKER) (test code = 0.31 ng/mL 0.00-0.03 HH 397) Troponin I (TnI) levels must be interpreted in the context of the presenting symptoms and the clinical findings. Elevated TnI levels indicate myocardial damage, but are not specific for ischemic heart disease. Elevated TnI levels are seen in patients with other cardiac conditions (including myocarditis and congestive heart failure), and slight TnI elevations occur in patients with other conditions, including sepsis, renal failure, acidosis, acute neurological disease, and persistent tachyarrhythmia.RAPID DRUG SCREEN, [id number] 05:14:00 Test Item Value Reference Range Interpretation Comments BARBITURATE URINE (BEAKER) (test Negative Negative code = 725) BENZODIAZEPINE SCREEN URINE (BEAKER) Negative Negative (test code = 726) COCAINE (METAB.) SCREEN (BEAKER) Negative Negative (test code = 1164) METHADONE SCREEN (BEAKER) (test code Negative Negative = 1436) OPIATE SCREEN URINE (BEAKER) (test Negative Negative code = 734) CANNABINOID SCREEN URINE (BEAKER) Negative Negative (test code = 727) AMPH/METHAMPH SCREEN (BEAKER) (test Negative Negative code = 1438) PHENCYCLIDINE SCREEN URINE (BEAKER) Negative Negative (test code = 608) OXYCODONE SCREEN URINE (BEAKER) Negative Negative (test code = 2761) DRUG CUTOFF CONC.Cocaine 300 ng/mL Cannabinoid 50 ng/mL Benzodiazepine 200 ng/mLBarbiturate 200 ng/mLPhencyclidine 25 ng/mLOpiate 300 ng/mLMethadone 300 ng/mLAmphetamine/ 1000 ng/mL MethamphetamineOxycodone 300 ng/mLThis assay provides an unconfirmed qualitative test result for the clinical management of patients in emergency situations. Chain of custody not maintained. Some olnj-wum-aehjjum medications, as well as adulterants, may cause inaccurate results. Clinical correlation should be applied. A more comprehensive drug screen or confirmation of a detected drug may be performed upon request. LIPID [id number] 05:08:00 Test Item Value Reference Range Interpretation Comments TRIGLYCERIDES (BEAKER) (test code = 219 mg/dL 540) CHOLESTEROL (BEAKER) (test code = 298 mg/dL 631) HDL CHOLESTEROL (BEAKER) (test code 40 mg/dL = 976) LDL CHOLESTEROL CALCULATED (BEAKER) 214 mg/dL (test code = 633) Triglyceride Reference Range: Low Risk <150 Borderline 150-199 High Risk 200-499 Very High Risk >=500Cholesterol Reference Range: Low Risk <200 Borderline 200-239 High Risk >240HDL Cholesterol Reference Range: Low Risk >=60 High Risk <40LDL Cholesterol Reference Range: Optimal <100 Near Optimal 100-129 Borderline 130-159 High 160-189 Very High >=190COMPREHENSIVE METABOLIC [id number] 02:15:00 Test Item Value Reference Range Interpretation Comments TOTAL PROTEIN 6.9 gm/dL 6.0-8.3 (BEAKER) (test code = 770) ALBUMIN (BEAKER) 3.5 g/dL 3.5-5.0 (test code = 1145) ALKALINE PHOSPHATASE 148 U/L 40-150 (BEAKER) (test code = 346) BILIRUBIN TOTAL 0.4 mg/dL 0.2-1.2 (BEAKER) (test code = 377) SODIUM (BEAKER) (test 142 meq/L 136-145 code = 381) POTASSIUM (BEAKER) 3.0 meq/L 3.5-5.1 L (test code = 379) CHLORIDE (BEAKER) 105 meq/L 98-107 (test code = 382) CO2 (BEAKER) (test 24 meq/L 22-29 code = 355) BLOOD UREA NITROGEN 55 mg/dL 7-21 H (BEAKER) (test code = 354) CREATININE (BEAKER) 3.66 mg/dL 0.57-1.25 H (test code = 358) GLUCOSE RANDOM 278 mg/dL 70-105 H (BEAKER) (test code = 652) CALCIUM (BEAKER) 7.4 mg/dL 8.4-10.2 L (test code = 697) AST (SGOT) (BEAKER) 22 U/L 5-34 (test code = 353) ALT (SGPT) (BEAKER) 23 U/L 6-55 (test code = 347) EGFR (BEAKER) (test 17 mL/min/1.73 ESTIMA JAMIE GFR IS code = 1092) sq m NOT ACCURATE CREATININE CLEARANCE IN PREDICTING GLOMERULAR FILTRATION RATE . ESTIMATED GFR I S NOT APPLICABLE FOR DIALYSIS PATIEN TS. POCT-LACTIC ACID, [id number] 01:53:00 Test Item Value Reference Range Interpretation Comments POC-LACTIC ACID, 0.4 mmol/L 0.9-1.7 L TESTED AT [facility] [address] (BEAKER) (test CLAIRE BROWNE [place] code = 2805) [address] RAD, CHEST, 1 VIEW, NON [id number] 01:45:00Reason for exam:->SHORTNESS OF BREATHShould this be performed at the bedside?->YesFINAL REPORT RAD, CHEST, 1 VIEW, NON DEPT INDICATION: SHORTNESS OF BREATH COMP ARISON: Chest x-ray 09/30/2016 TECHNIQUE: Portable frontal view of the chest. IMPRESSION: Low lung volumes.Prominent cardiac silhouette.Probable pulmonary interstitial edema. An interstitial pneumonitis would be difficult to exclude.No acute osseous abnormality. Signed: Enrique Olson MDReport Verified Date/Time: 10/04/2017 01:45:51 Reading Location: [address] Ortho Consult Reading Room CREATINE KINASE (CK), TOTAL AND [id number] 01:43:00 Test Item Value Reference Range Interpretation Comments CREATINE KINASE TOTAL (BEAKER) 1019 U/L 29-200 H (test code = 380) CREATINE KINASE-MB (BEAKER) (test 3.7 ng/mL 0.0-6.6 code = 750) CREATINE KINASE-MB INDEX (BEAKER) 0.4 % (test code = 395) CK-MB Reference Range:<6.7 Normal6.7-10.0 Borderline>10.0 AbnormalTROPONIN [id number] 01:29:00 Test Item Value Reference Range Interpretation Comments TROPONIN I (BEAKER) (test code = 397) < ng/mL 0.00-0.03 Troponin I (TnI) levels must be interpreted in the context of the presenting symptoms and the clinical findings. Elevated TnI levels indicate myocardial damage, but are not specific for ischemic heart disease. Elevated TnI levels are seen in patients with other cardiac conditions (including myocarditis and congestive heart failure), and slight TnI elevations occur in patients with other conditions, including sepsis, renal failure, acidosis, acute neurological disease, and persistent tachyarrhythmia.B-TYPE NATRIURETIC FACTOR (BNP) 2017-10-04 01:28:00 Test Item Value Reference Range Interpretation Comments B-TYPE NATRIURETIC PEPTIDE (BEAKER) 305 pg/mL 0-100 H (test code = 700) [id number] 01:16:00 Test Item Value Reference Range Interpretation Comments PROTIME (BEAKER) (test code = 13.4 seconds 11.7-14.7 759) INR (BEAKER) (test code = 370) 1.0 <=5.9 PARTIAL THROMBOPLASTIN TIME 30.6 seconds 22.5-36.0 (BEAKER) (test code = 760) RECOMMENDED COUMADIN/WARFARIN INR THERAPY RANGESSTANDARD DOSE: 2.0 - 3.0 Includes: PROPHYLAXIS forvenous thrombosis, systemic embolization; TREATMENT for venous thrombosis and/or pulmonary embolus.HIGH RISK: Target INR is 2.5-3.5 for patients with mechanical heart valves.CBC W/PLT COUNT & AUTO DIFFERENTIAL 2017-10-04 01:11:00 Test Item Value Reference Range Interpretation Comments WHITE BLOOD CELL COUNT (BEAKER) 13.6 K/ L 3.5-10.5 H (test code = 775) RED BLOOD CELL COUNT (BEAKER) 3.06 M/ L 4.63-6.08 L (test code = 761) HEMOGLOBIN (BEAKER) (test code = 9.4 GM/DL 13.7-17.5 L 410) HEMATOCRIT (BEAKER) (test code = 27.6 % 40.1-51.0 L 411) MEAN CORPUSCULAR VOLUME (BEAKER) 90.2 fL 79.0-92.2 (test code = 753) MEAN CORPUSCULAR HEMOGLOBIN 30.7 pg 25.7-32.2 (BEAKER) (test code = 751) MEAN CORPUSCULAR HEMOGLOBIN CONC 34.1 GM/DL 32.3-36.5 (BEAKER) (test code = 752) RED CELL DISTRIBUTION WIDTH 14.0 % 11.6-14.4 (BEAKER) (test code = 412) PLATELET COUNT (BEAKER) (test 388 K/CU MM 150-450 code = 756) MEAN PLATELET VOLUME (BEAKER) 8.3 fL 9.4-12.4 L (test code = 754) NUCLEATED RED BLOOD CELLS 0 /100 WBC 0-0 (BEAKER) (test code = 413) NEUTROPHILS RELATIVE PERCENT 78 % (BEAKER) (test code = 429) LYMPHOCYTES RELATIVE PERCENT 10 % (BEAKER) (test code = 430) MONOCYTES RELATIVE PERCENT 7 % (BEAKER) (test code = 431) EOSINOPHILS RELATIVE PERCENT 4 % (BEAKER) (test code = 432) BASOPHILS RELATIVE PERCENT 0 % (BEAKER) (test code = 437) NEUTROPHILS ABSOLUTE COUNT 10.57 K/ L 1.78-5.38 H (BEAKER) (test code = 670) LYMPHOCYTES ABSOLUTE COUNT 1.32 K/ L 1.32-3.57 (BEAKER) (test code = 414) MONOCYTES ABSOLUTE COUNT (BEAKER) 0.98 K/ L 0.30-0.82 H (test code = 415) EOSINOPHILS ABSOLUTE COUNT 0.57 K/ L 0.04-0.54 H (BEAKER) (test code = 416) BASOPHILS ABSOLUTE COUNT (BEAKER) 0.05 K/ L 0.01-0.08 (test code = 417) IMMATURE GRANULOCYTES-RELATIVE 1 % 0-1 PERCENT (BEAKER) (test code = 2801) ANAEROBIC [id number] 13:11:00 Test Item Value Reference Range Interpretation Comments CULTURE (BEAKER) (test No anaerobes isolated code = 1095) SURGICALLY OBTAINED CULTURE + GRAM [id number] 13:11:00 Test Item Value Reference Range Interpretation Comments CULTURE (BEAKER) (test code = 1095) Amikacin (test code = S 1) Aztreonam (test code = S 32) Cefepime (test code = S 51) Cefoxitin (test code = S 68) Ceftazidime (test code S = 27) Ceftriaxone (test code S = 52) Ertapenem (test code = S 38) Gentamicin (test code S = 18) Levofloxacin (test S code = 22) Meropenem (test code = S 34) Nitrofurantoin (test R code = 23) Tetracycline (test R code = 2) Tobramycin (test code S = 25) Trimethoprim + S Sulfamethoxazole (test code = 47) CULTURE (BEAKER) (test PSEUDOMONAS A 4+ Se rratia code = 1095) AERUGINOSA marcescens Amikacin (test code = Susceptible 0-16 S 1) , Resistant <0 or >16 Aztreonam (test code = Susceptible 0-8 S 32) , Resistant <0 or >8 Cefepime (test code = Susceptible 0-8 S 51) , Resistant <0 or >8 Ceftazidime (test code Susceptible 0-8 S = 27) , Resistant <0 or >8 Ciprofloxacin (test Susceptible 0-1 R code = 7) , Resistant <0 or >1 Doripenem (test code = Susceptible 0-2 S 100) , Resistant <0 or >2 Gentamicin (test code Susceptible 0-4 S = 18) , Resistant <0 or >4 Imipenem (test code = Susceptible 0-2 S 19) , Resistant <0 or >2 Levofloxacin (test Susceptible 0-2 R code = 22) , Resistant <0 or >2 Meropenem (test code = Susceptible 0-2 S 34) , Resistant <0 or >2 Piperacillin (test Susceptible 0-16 S code = 24) , Resistant <0 or >16 Piperacillin + Susceptible 0-16 S Tazobactam (test code , Resistant <0 = 29) or >16 Tobramycin (test code Susceptible 0-4 S = 25) , Resistant <0 or >4 CULTURE (BEAKER) (test A 3+ Ps eudomonas code = 1095) aeruginosa GRAM STAIN RESULT <1+ WBCs ([facility]) (test code = 1123) GRAM STAIN RESULT No organisms ([facility]) (test code = seen 291805) TISSUE [id number] 16:46:00Surgical Pathology Report Case: [id number] Authorizing Provider: Jim Scott DPM Collected: 07/19/2017 0919 Ordering Location: [facility] Received: 07/19/2017 1335 SERVICES Pathologist: Andrea Niño MD Specimen: Soft Tissue, Debridement, wound tissue left foot 5th metatarsal FOOT, LEFT FIFTH METATARSAL WOUND TISSUE, DEBRIDEMENT: - SKIN WITH ULCERATION AND PARAKERATOSIS - UNDERLYING SOFT TISSUE WITH GRANULATION TISSUE AND SCARRING Signing Pathologist Direct Phone Line: [phone] signed by Andrea Niño MD on 07/20/2017 at 4:46 [id number] tissue left foot,5th metarsalIn formalin labeled "soft tissue, debridement", description "wound tissue left foot 5th m etatarsal" is a 2.6 x 1.5 cm pale caro wrinkled ellipse of skin excised to a depth of 1.0 cm. The skin surface exhibits a 2.0 x 1.0 cm irregular dark red shallow wound. Sectioning reveals no discrete masses. The specimen is entirely submitted in cassettes A1-A2. DB/plPerformed.POCT-GLUCOSE [id number] 10:32:00 Test Item Value Reference Range Interpretation Comments POC-GLUCOSE METER 206 mg/dL 70-110 H TESTED AT [place] [address] ([facility]) (test code = CLAIRE May [facility] 1538) [id number] POCT-GLUCOSE [id number] 06:26:00 Test Item Value Reference Range Interpretation Comments POC-GLUCOSE METER 287 mg/dL 70-110 H TESTED AT [place] [address] ([facility]) (test code = [facility] Yadira [facility] 1538) [id number] BUN AND [id number] 12:23:00 Test Item Value Reference Range Interpretation Comments BLOOD UREA NITROGEN 75 mg/dL 7-21 H ([facility]) (test code = 354) CREATININE ([facility]) 3.17 mg/dL 0.57-1.25 H (test code = 358) EGFR (BEAKER) (test 20 mL/min/1.73 ESTIMA JAMIE GFR IS code = 1092) sq m NOT ACCURATE CREATININE CLEARANCE IN PREDICTING GLOMERULAR FILTRATION RATE . ESTIMATED GFR I S NOT APPLICABLE FOR DIALYSIS PATIEN TS. ALKALINE [id number] 12:10:00 Test Item Value Reference Range Interpretation Comments ALKALINE PHOSPHATASE (BEAKER) (test 124 U/L 40-150 code = 346) [id number] 12:10:00 Test Item Value Reference Range Interpretation Comments SODIUM (BEAKER) (test code = 381) 141 meq/L 136-145 POTASSIUM (BEAKER) (test code = 4.3 meq/L 3.5-5.1 379) CHLORIDE (BEAKER) (test code = 382) 106 meq/L 98-107 CO2 (BEAKER) (test code = 355) 25 meq/L 22-29 AST (SGOT)2017-07-13 12:10:00 Test Item Value Reference Range Interpretation Comments AST (SGOT) (BEAKER) (test code = 353) 20 U/L 5-34 [id number] 12:10:00 Test Item Value Reference Range Interpretation Comments GLUCOSE RANDOM (BEAKER) (test code 354 mg/dL 70-105 H = 652) [id number] 12:04:00 Test Item Value Reference Range Interpretation Comments PARTIAL THROMBOPLASTIN TIME 31.0 seconds 22.5-36.0 (BEAKER) (test code = 760) PROTHROMBIN [id number] 12:03:00 Test Item Value Reference Range Interpretation Comments PROTIME (BEAKER) (test code = 13.3 seconds 11.7-14.7 759) INR (BEAKER) (test code = 370) 1.0 <=5.9 RECOMMENDED COUMADIN/WARFARIN INR THERAPY RANGESSTANDARD DOSE: 2.0 - 3.0 Includes: PROPHYLAXIS forvenous thrombosis, systemic embolization; TREATMENT for venous thrombosis and/or pulmonary embolus.HIGH RISK: Target INR is 2.5-3.5 for patients with mechanical heart valves.[id number] 11:50:00 Test Item Value Reference Range Interpretation Comments HEMOGLOBIN (BEAKER) (test code = 9.7 GM/DL 13.7-17.5 L 410) PLATELET [id number] 11:50:00 Test Item Value Reference Range Interpretation Comments PLATELET COUNT (BEAKER) (test 328 K/CU MM 150-450 code = 756) AFB CULTURE + [id number] 19:43:00 Test Item Value Reference Range Interpretation Comments CULTURE (BEAKER) (test No acid-fast bacilli code = 1095) isolated in 42 days AFB SMEAR (BEAKER) No acid fast bacilli (test code = 994) seen AFB CULTURE + [id number] 19:43:00 Test Item Value Reference Range Interpretation Comments CULTURE (BEAKER) (test No acid-fast bacilli code = 1095) isolated in 42 days AFB SMEAR (BEAKER) No acid fast bacilli (test code = 994) seen BASIC METABOLIC [id number] 16:38:00 Test Item Value Reference Range Interpretation Comments SODIUM (BEAKER) 143 meq/L 136-145 (test code = 381) POTASSIUM (BEAKER) 4.5 meq/L 3.5-5.1 (test code = 379) CHLORIDE (BEAKER) 106 meq/L 98-107 (test code = 382) CO2 (BEAKER) (test 25 meq/L 22-29 code = 355) BLOOD UREA NITROGEN 69 mg/dL 7-21 H (BEAKER) (test code = 354) CREATININE (BEAKER) 2.63 mg/dL 0.57-1.25 H (test code = 358) GLUCOSE RANDOM 127 mg/dL 70-105 H (BEAKER) (test code = 652) CALCIUM (BEAKER) 8.4 mg/dL 8.4-10.2 (test code = 697) EGFR (BEAKER) (test 25 mL/min/1.73 ESTIMA JAMIE GFR IS code = 1092) sq m NOT ACCURATE CREATININE CLEARANCE IN PREDICTING GLOMERULAR FILTRATION RATE . ESTIMATED GFR I S NOT APPLICABLE FOR DIALYSIS PATIEN TS. [id number] 16:30:00 Test Item Value Reference Range Interpretation Comments PROTIME (BEAKER) (test code = 13.2 seconds 11.7-14.7 759) INR (BEAKER) (test code = 370) 1.0 <=5.9 PARTIAL THROMBOPLASTIN TIME 30.6 seconds 22.5-36.0 (BEAKER) (test code = 760) RECOMMENDED COUMADIN/WARFARIN INR THERAPY RANGESSTANDARD DOSE: 2.0 - 3.0 Includes: PROPHYLAXIS forvenous thrombosis, systemic embolization; TREATMENT for venous thrombosis and/or pulmonary embolus.HIGH RISK: Target INR is 2.5-3.5 for patients with mechanical heart valves.CBC W/PLT COUNT & AUTO DIFFERENTIAL 2016-11-15 16:28:00 Test Item Value Reference Range Interpretation Comments WHITE BLOOD CELL COUNT (BEAKER) 7.8 K/ L 4.0-10.0 (test code = 775) RED BLOOD CELL COUNT (BEAKER) 2.61 M/ L 4.20-5.80 L (test code = 761) HEMOGLOBIN (BEAKER) (test code = 8.5 GM/DL 13.0-16.8 L 410) HEMATOCRIT (BEAKER) (test code = 24.6 % 40.0-50.0 L 411) MEAN CORPUSCULAR VOLUME (BEAKER) 94.3 fL 82.0-98.0 (test code = 753) MEAN CORPUSCULAR HEMOGLOBIN 32.4 pg 27.0-33.0 (BEAKER) (test code = 751) MEAN CORPUSCULAR HEMOGLOBIN CONC 34.4 GM/DL 32.0-36.0 (BEAKER) (test code = 752) RED CELL DISTRIBUTION WIDTH 12.9 % 10.3-14.2 (BEAKER) (test code = 412) PLATELET COUNT (BEAKER) (test 259 K/CU MM 150-430 code = 756) MEAN PLATELET VOLUME (BEAKER) 5.8 fL 6.5-10.5 L (test code = 754) NUCLEATED RED BLOOD CELLS 0 /100 WBC 0-0 (BEAKER) (test code = 413) NEUTROPHILS RELATIVE PERCENT 67 % (BEAKER) (test code = 429) LYMPHOCYTES RELATIVE PERCENT 16 % (BEAKER) (test code = 430) MONOCYTES RELATIVE PERCENT 10 % (BEAKER) (test code = 431) EOSINOPHILS RELATIVE PERCENT 6 % (BEAKER) (test code = 432) BASOPHILS RELATIVE PERCENT 0 % (BEAKER) (test code = 437) NEUTROPHILS ABSOLUTE COUNT 5.27 K/ L 1.80-8.00 (BEAKER) (test code = 670) LYMPHOCYTES ABSOLUTE COUNT 1.28 K/ L 1.48-4.50 L (BEAKER) (test code = 414) MONOCYTES ABSOLUTE COUNT (BEAKER) 0.75 K/ L 0.00-1.30 (test code = 415) EOSINOPHILS ABSOLUTE COUNT 0.51 K/ L 0.00-0.50 H (BEAKER) (test code = 416) BASOPHILS ABSOLUTE COUNT (BEAKER) 0.04 K/ L 0.00-0.20 (test code = 417) 0.00FUNGUS CULTURE + [id number] 09:31:00 Test Item Value Reference Range Interpretation Comments CULTURE (BEAKER) (test No fungus isolated in code = 1095) 28 days FUNGUS SMEAR (BEAKER) No fungi seen (test code = 1406) FUNGUS CULTURE + [id number] 09:31:00 Test Item Value Reference Range Interpretation Comments CULTURE (BEAKER) (test No fungus isolated in code = 1095) 28 days FUNGUS SMEAR (BEAKER) No fungi seen (test code = 1406) ANAEROBIC [id number] 15:21:00 Test Item Value Reference Range Interpretation Comments CULTURE (BEAKER) (test No anaerobes isolated code = 1095) POCT-GLUCOSE [id number] 12:51:00 Test Item Value Reference Range Interpretation Comments POC-GLUCOSE METER 248 mg/dL 70-110 H TESTED AT [facility] 6720 (BEAKER) (test code = [place] 1538) [id number] POCT-GLUCOSE [id number] 11:40:00 Test Item Value Reference Range Interpretation Comments POC-GLUCOSE METER 229 mg/dL 70-110 H TESTED AT [facility] 6720 (BEAKER) (test code = CLAIRE [place] 1538) [id number] POCT-GLUCOSE [id number] 08:22:00 Test Item Value Reference Range Interpretation Comments POC-GLUCOSE METER 97 mg/dL 70-110 TESTED AT [facility] 6720 (BEAKER) (test code = [place] [address] 1538) POCT-GLUCOSE [id number] 08:08:00 Test Item Value Reference Range Interpretation Comments POC-GLUCOSE METER 53 mg/dL 70-110 L TESTED AT [facility] 6720 (BEAKER) (test code = [place] [address] 1538) BASIC METABOLIC [id number] 05:59:00 Test Item Value Reference Range Interpretation Comments SODIUM (BEAKER) 142 meq/L 136-145 (test code = 381) POTASSIUM (BEAKER) 3.6 meq/L 3.5-5.1 (test code = 379) CHLORIDE (BEAKER) 109 meq/L 98-107 H (test code = 382) CO2 (BEAKER) (test 22 meq/L 22-29 code = 355) BLOOD UREA NITROGEN 53 mg/dL 7-21 H (BEAKER) (test code = 354) CREATININE (BEAKER) 3.70 mg/dL 0.57-1.25 H (test code = 358) GLUCOSE RANDOM 87 mg/dL 70-105 (BEAKER) (test code = 652) CALCIUM (BEAKER) 8.0 mg/dL 8.4-10.2 L (test code = 697) EGFR (BEAKER) (test 17 mL/min/1.73 ESTIMA JAMIE GFR IS code = 1092) sq m NOT ACCURATE CREATININE CLEARANCE IN PREDICTING GLOMERULAR FILTRATION RATE . ESTIMATED GFR I S NOT APPLICABLE FOR DIALYSIS PATIEN TS. ANAEROBIC [id number] 03:50:00 Test Item Value Reference Range Interpretation Comments CULTURE ([facility]) (test No anaerobes isolated code = 1095) POCT-GLUCOSE [id number] 21:26:00 Test Item Value Reference Range Interpretation Comments POC-GLUCOSE METER 205 mg/dL 70-110 H TESTED AT [place] [address] ([facility]) (test code = CLAIRE May [place] [id number]) [address] POCT-GLUCOSE [id number] 21:26:00 Test Item Value Reference Range Interpretation Comments POC-GLUCOSE METER 125 mg/dL 70-110 H Notified R Ruma JUNE/TESTED ([facility]) (test code = AT [facility] [address] [place] [address] 1538) [facility] 7[address] 0 POCT-GLUCOSE [id number] 11:38:00 Test Item Value Reference Range Interpretation Comments POC-GLUCOSE METER 167 mg/dL 70-110 H TESTED AT [place] [address] ([facility]) (test code = CLAIRE May [place] [id number]) [address] SURGICALLY OBTAINED CULTURE + GRAM [id number] 11:21:00 Test Item Value Reference Range Interpretation Comments CULTURE ([facility]) (test code No growth = 1095) GRAM STAIN RESULT ([facility]) No WBCs (test code = 1123) GRAM STAIN RESULT ([facility]) No organisms seen (test code = 61958) SURGICALLY OBTAINED CULTURE + GRAM [id number] 10:46:00 Test Item Value Reference Range Interpretation Comments CULTURE (BEAKER) PSEUDOMONAS A <1+ Pseudom onas (test code = 1095) AERUGINOSA aeruginos a Amikacin (test code Susceptible 0-16 S = 1) , Resistant <0 or >16 Aztreonam (test Susceptible 0-8 , R code = 32) Resistant <0 or >8 Cefepime (test code Susceptible 0-8 , R = 51) Resistant <0 or >8 Ceftazidime (test Susceptible 0-8 , R code = 27) Resistant <0 or >8 Ciprofloxacin (test Susceptible 0-1 , S code = 7) Resistant <0 or >1 Doripenem (test Susceptible 0-2 , S code = 100) Resistant <0 or >2 Gentamicin (test Susceptible 0-4 , S code = 18) Resistant <0 or >4 Imipenem (test code Susceptible 0-2 , S = 19) Resistant <0 or >2 Levofloxacin (test Susceptible 0-2 , S code = 22) Resistant <0 or >2 Meropenem (test Susceptible 0-2 , S code = 34) Resistant <0 or >2 Piperacillin (test Susceptible 0-16 R code = 24) , Resistant <0 or >16 Piperacillin + Susceptible 0-16 R Tazobactam (test , Resistant <0 or code = 29) >16 Tobramycin (test Susceptible 0-4 , S code = 25) Resistant <0 or >4 CULTURE (BEAKER) PSEUDOMONAS A <1+ Pseudom onas (test code = 61333) AERUGINOSA aerugino saof a second type Amikacin (test code Susceptible 0-16 S = 1) , Resistant <0 or >16 Aztreonam (test Susceptible 0-8 , S code = 32) Resistant <0 or >8 Cefepime (test code Susceptible 0-8 , R = 51) Resistant <0 or >8 Ceftazidime (test Susceptible 0-8 , R code = 27) Resistant <0 or >8 Ciprofloxacin (test Susceptible 0-1 , R code = 7) Resistant <0 or >1 Doripenem (test Susceptible 0-2 , S code = 100) Resistant <0 or >2 Gentamicin (test Susceptible 0-4 , S code = 18) Resistant <0 or >4 Imipenem (test code Susceptible 0-2 , S = 19) Resistant <0 or >2 Levofloxacin (test Susceptible 0-2 , R code = 22) Resistant <0 or >2 Meropenem (test Susceptible 0-2 , S code = 34) Resistant <0 or >2 Piperacillin (test Susceptible 0-16 R code = 24) , Resistant <0 or >16 Piperacillin + Susceptible 0-16 R Tazobactam (test , Resistant <0 or code = 29) >16 Tobramycin (test Susceptible 0-4 , S code = 25) Resistant <0 or >4 CULTURE (BEAKER) A <1+ Jinny (test code = albicans 321987) GRAM STAIN RESULT No WBCs (BEAKER) (test code = 1123) GRAM STAIN RESULT No organisms seen (BEAKER) (test code = 471318) BASIC METABOLIC [id number] 07:40:00 Test Item Value Reference Range Interpretation Comments SODIUM (BEAKER) 142 meq/L 136-145 (test code = 381) POTASSIUM (BEAKER) 3.5 meq/L 3.5-5.1 Specimen slightly (test code = 379) hemolyzed CHLORIDE (BEAKER) 108 meq/L 98-107 H (test code = 382) CO2 (BEAKER) (test 22 meq/L 22-29 code = 355) BLOOD UREA NITROGEN 51 mg/dL 7-21 H (BEAKER) (test code = 354) CREATININE (BEAKER) 4.10 mg/dL 0.57-1.25 H Specimen slightly (test code = 358) hemolyzed GLUCOSE RANDOM 72 mg/dL 70-105 (BEAKER) (test code = 652) CALCIUM (BEAKER) 7.9 mg/dL 8.4-10.2 L (test code = 697) EGFR (BEAKER) (test 15 mL/min/1.73 ESTIMA JAMIE GFR IS code = 1092) sq m NOT ACCURATE CREATININE CLEARANCE IN PREDICTING GLOMERULAR FILTRATION RATE . ESTIMATED GFR I S NOT APPLICABLE FOR DIALYSIS PATIEN TS. POCT-GLUCOSE [id number] 07:33:00 Test Item Value Reference Range Interpretation Comments POC-GLUCOSE METER 71 mg/dL 70-110 TESTED AT [facility] ([facility]) (test code = [place] [address] 1538) [id number] 07:33:00 Test Item Value Reference Range Interpretation Comments MAGNESIUM (BEAKER) 2.0 mg/dL 1.6-2.6 Specimen slightly (test code = 627) hemolyzed [id number] 07:33:00 Test Item Value Reference Range Interpretation Comments PHOSPHORUS (BEAKER) 4.8 mg/dL 2.3-4.7 H Specimen slightly (test code = 604) hemolyzed CBC W/PLT COUNT & AUTO [id number] 07:01:00 Test Item Value Reference Range Interpretation Comments WHITE BLOOD CELL COUNT (BEAKER) 6.7 K/ L 4.0-10.0 (test code = 775) RED BLOOD CELL COUNT (BEAKER) 2.60 M/ L 4.20-5.80 L (test code = 761) HEMOGLOBIN (BEAKER) (test code = 8.9 GM/DL 13.0-16.8 L 410) HEMATOCRIT (BEAKER) (test code = 24.2 % 40.0-50.0 L 411) MEAN CORPUSCULAR VOLUME (BEAKER) 93.1 fL 82.0-98.0 (test code = 753) MEAN CORPUSCULAR HEMOGLOBIN 34.3 pg 27.0-33.0 H (BEAKER) (test code = 751) MEAN CORPUSCULAR HEMOGLOBIN CONC 36.8 GM/DL 32.0-36.0 H (BEAKER) (test code = 752) RED CELL DISTRIBUTION WIDTH 12.8 % 10.3-14.2 (BEAKER) (test code = 412) PLATELET COUNT (BEAKER) (test 276 K/CU MM 150-430 code = 756) MEAN PLATELET VOLUME (BEAKER) 5.4 fL 6.5-10.5 L (test code = 754) NUCLEATED RED BLOOD CELLS 0 /100 WBC 0-0 (BEAKER) (test code = 413) NEUTROPHILS RELATIVE PERCENT 64 % (BEAKER) (test code = 429) LYMPHOCYTES RELATIVE PERCENT 21 % (BEAKER) (test code = 430) MONOCYTES RELATIVE PERCENT 9 % (BEAKER) (test code = 431) EOSINOPHILS RELATIVE PERCENT 5 % (BEAKER) (test code = 432) BASOPHILS RELATIVE PERCENT 1 % (BEAKER) (test code = 437) NEUTROPHILS ABSOLUTE COUNT 4.28 K/ L 1.80-8.00 (BEAKER) (test code = 670) LYMPHOCYTES ABSOLUTE COUNT 1.39 K/ L 1.48-4.50 L (AKER) (test code = 414) MONOCYTES ABSOLUTE COUNT (BEAKER) 0.60 K/ L 0.00-1.30 (test code = 415) EOSINOPHILS ABSOLUTE COUNT 0.34 K/ L 0.00-0.50 (BEAKER) (test code = 416) BASOPHILS ABSOLUTE COUNT (BEAKER) 0.06 K/ L 0.00-0.20 (test code = 417) 0.00CALCIUM, [id number] 06:45:00 Test Item Value Reference Range Interpretation Comments CALCIUM IONIZED ([facility]) (test 0.89 mmol/L 1.12-1.27 L code = 698) PH, BLOOD ([facility]) (test code = 7.41 1810) POCT-GLUCOSE [id number] 21:17:00 Test Item Value Reference Range Interpretation Comments POC-GLUCOSE METER 92 mg/dL 70-110 TESTED AT [place] [address] ([facility]) (test code = [facility] [address] 1538) POCT-GLUCOSE [id number] 17:54:00 Test Item Value Reference Range Interpretation Comments POC-GLUCOSE METER 225 mg/dL 70-110 H TESTED AT [place] [address] ([facility]) (test code = [facility] 1538) [address] POCT-GLUCOSE [id number] 12:00:00 Test Item Value Reference Range Interpretation Comments POC-GLUCOSE METER 246 mg/dL 70-110 H TESTED AT [place] [address] ([facility]) (test code = [facility] 1538) [address] TISSUE [id number] 09:27:00 Test Item Value Reference Range Interpretation Comments LAB AP CPT CODE ([facility]) (test code = 02313 2749) POCT-GLUCOSE [id number] 08:06:00 Test Item Value Reference Range Interpretation Comments POC-GLUCOSE METER 205 mg/dL 70-110 H TESTED AT [place] [address] ([facility]) (test code = [facility] 1538) [address] CBC W/PLT COUNT & AUTO [id number] 07:51:00 Test Item Value Reference Range Interpretation Comments WHITE BLOOD CELL COUNT ([facility]) 7.3 K/ L 4.0-10.0 (test code = 775) RED BLOOD CELL COUNT (BEAKER) 2.80 M/ L 4.20-5.80 L (test code = 761) HEMOGLOBIN (BEAKER) (test code = 9.1 GM/DL 13.0-16.8 L 410) HEMATOCRIT (BEAKER) (test code = 26.6 % 40.0-50.0 L 411) MEAN CORPUSCULAR VOLUME (BEAKER) 94.9 fL 82.0-98.0 (test code = 753) MEAN CORPUSCULAR HEMOGLOBIN 32.4 pg 27.0-33.0 (BEAKER) (test code = 751) MEAN CORPUSCULAR HEMOGLOBIN CONC 34.1 GM/DL 32.0-36.0 (BEAKER) (test code = 752) RED CELL DISTRIBUTION WIDTH 11.8 % 10.3-14.2 (BEAKER) (test code = 412) PLATELET COUNT (BEAKER) (test 265 K/CU MM 150-430 code = 756) MEAN PLATELET VOLUME (BEAKER) 5.3 fL 6.5-10.5 L (test code = 754) NUCLEATED RED BLOOD CELLS 0 /100 WBC 0-0 (BEAKER) (test code = 413) NEUTROPHILS RELATIVE PERCENT 73 % (BEAKER) (test code = 429) LYMPHOCYTES RELATIVE PERCENT 15 % (BEAKER) (test code = 430) MONOCYTES RELATIVE PERCENT 7 % (BEAKER) (test code = 431) EOSINOPHILS RELATIVE PERCENT 4 % (BEAKER) (test code = 432) BASOPHILS RELATIVE PERCENT 1 % (BEAKER) (test code = 437) NEUTROPHILS ABSOLUTE COUNT 5.28 K/ L 1.80-8.00 (BEAKER) (test code = 670) LYMPHOCYTES ABSOLUTE COUNT 1.11 K/ L 1.48-4.50 L (BEAKER) (test code = 414) MONOCYTES ABSOLUTE COUNT (BEAKER) 0.53 K/ L 0.00-1.30 (test code = 415) EOSINOPHILS ABSOLUTE COUNT 0.28 K/ L 0.00-0.50 (BEAKER) (test code = 416) BASOPHILS ABSOLUTE COUNT (BEAKER) 0.04 K/ L 0.00-0.20 (test code = 417) 0.00BASI METABOLIC [id number] 06:31:00 Test Item Value Reference Range Interpretation Comments SODIUM (BEAKER) 142 meq/L 136-145 (test code = 381) POTASSIUM (BEAKER) 3.5 meq/L 3.5-5.1 (test code = 379) CHLORIDE (BEAKER) 108 meq/L 98-107 H (test code = 382) CO2 (BEAKER) (test 22 meq/L 22-29 code = 355) BLOOD UREA NITROGEN 51 mg/dL 7-21 H (BEAKER) (test code = 354) CREATININE (BEAKER) 4.21 mg/dL 0.57-1.25 H (test code = 358) GLUCOSE RANDOM 149 mg/dL 70-105 H (BEAKER) (test code = 652) CALCIUM (BEAKER) 7.4 mg/dL 8.4-10.2 L (test code = 697) EGFR (BEAKER) (test 15 mL/min/1.73 ESTIMA JAMIE GFR IS code = 1092) sq m NOT ACCURATE CREATININE CLEARANCE IN PREDICTING GLOMERULAR FILTRATION RATE . ESTIMATED GFR I S NOT APPLICABLE FOR DIALYSIS PATIHUGH TS. [id number] 06:29:00 Test Item Value Reference Range Interpretation Comments PHOSPHORUS (BEAKER) (test code = 4.4 mg/dL 2.3-4.7 604) [id number] 06:29:00 Test Item Value Reference Range Interpretation Comments MAGNESIUM (BEAKER) (test code = 1.8 mg/dL 1.6-2.6 627) CALCIUM, [id number] 06:24:00 Test Item Value Reference Range Interpretation Comments CALCIUM IONIZED (BEAKER) (test 0.84 mmol/L 1.12-1.27 L code = 698) PH, BLOOD (BEAKER) (test code = 7.42 1810) POCT-GLUCOSE [id number] 22:54:00 Test Item Value Reference Range Interpretation Comments POC-GLUCOSE METER 139 mg/dL 70-110 H TESTED AT [facility] ([facility] 1538) [address] POCT-GLUCOSE [id number] 19:50:00 Test Item Value Reference Range Interpretation Comments POC-GLUCOSE METER 142 mg/dL 70-110 H TESTED AT [facility] (test code = [facility] Yadira [facility] 1538) [address] POCT-GLUCOSE [id number] 17:00:00 Test Item Value Reference Range Interpretation Comments POC-GLUCOSE METER 71 mg/dL 70-110 TESTED AT [place] [address] (BEAKER) (test code = [place] [facility] [address] 1538) SPIN/CONCENTRATION [id number] 14:50:00 Test Item Value Reference Range Interpretation Comments CONCENTRATION CHARGED (BEAKER) (test Done code = 2657) POCT-GLUCOSE [id number] 12:18:00 Test Item Value Reference Range Interpretation Comments POC-GLUCOSE METER 167 mg/dL 70-110 H TESTED AT [facility] [address] (BEAKER) (test code = [facility] Yadira [facility] 1538) [address] WOUND CULTURE + GRAM [id number] 09:10:00 Test Item Value Reference Range Interpretation Comments CULTURE (BEAKER) A 4+ Prevotel la (test code = species 1095) GRAM STAIN RESULT 4+ WBCs (BEAKER) (test code = 1123) GRAM STAIN RESULT 4+ gram variable (BEAKER) (test rods code = 15737) POCT-GLUCOSE [id number] 07:44:00 Test Item Value Reference Range Interpretation Comments POC-GLUCOSE METER 178 mg/dL 70-110 H TESTED AT [place] [address] (BEAKER) (test code = [facility] 1538) [address] EOSINOPHIL SMEAR, [id number] 06:57:00 Test Item Value Reference Range Interpretation Comments EOSINOPHIL SMEAR, URINE (BEAKER) No EOS seen No EOS seen (test code = 1851) BASIC METABOLIC [id number] 06:31:00 Test Item Value Reference Range Interpretation Comments SODIUM (BEAKER) 142 meq/L 136-145 (test code = 381) POTASSIUM (BEAKER) 3.9 meq/L 3.5-5.1 (test code = 379) CHLORIDE (BEAKER) 108 meq/L 98-107 H (test code = 382) CO2 (BEAKER) (test 20 meq/L 22-29 L code = 355) BLOOD UREA NITROGEN 55 mg/dL 7-21 H (BEAKER) (test code = 354) CREATININE (BEAKER) 5.11 mg/dL 0.57-1.25 H (test code = 358) GLUCOSE RANDOM 167 mg/dL 70-105 H (BEAKER) (test code = 652) CALCIUM (BEAKER) 7.5 mg/dL 8.4-10.2 L (test code = 697) EGFR (BEAKER) (test 12 mL/min/1.73 ESTIMA JAMIE GFR IS code = 1092) sq m NOT ACCURATE CREATININE CLEARANCE IN PREDICTING GLOMERULAR FILTRATION RATE . ESTIMATED GFR I S NOT APPLICABLE FOR DIALYSIS PATIEN TS. CALCIUM, [id number] 06:30:00 Test Item Value Reference Range Interpretation Comments CALCIUM IONIZED (BEAKER) (test 0.89 mmol/L 1.12-1.27 L code = 698) PH, BLOOD (BEAKER) (test code = 7.41 1810) [id number] 06:30:00 Test Item Value Reference Range Interpretation Comments PHOSPHORUS (BEAKER) (test code = 5.9 mg/dL 2.3-4.7 H 604) [id number] 06:30:00 Test Item Value Reference Range Interpretation Comments MAGNESIUM (BEAKER) (test code = 2.0 mg/dL 1.6-2.6 627) CREATINE KINASE (CK)2016-10-03 06:30:00 Test Item Value Reference Range Interpretation Comments CREATINE KINASE TOTAL (BEAKER) (test 62 U/L 29-200 code = 380) CBC W/PLT COUNT & AUTO [id number] 06:21:00 Test Item Value Reference Range Interpretation Comments WHITE BLOOD CELL COUNT (BEAKER) 7.6 K/ L 4.0-10.0 (test code = 775) RED BLOOD CELL COUNT (BEAKER) 2.68 M/ L 4.20-5.80 L (test code = 761) HEMOGLOBIN (BEAKER) (test code = 8.8 GM/DL 13.0-16.8 L 410) HEMATOCRIT (BEAKER) (test code = 25.3 % 40.0-50.0 L 411) MEAN CORPUSCULAR VOLUME (BEAKER) 94.4 fL 82.0-98.0 (test code = 753) MEAN CORPUSCULAR HEMOGLOBIN 32.7 pg 27.0-33.0 (BEAKER) (test code = 751) MEAN CORPUSCULAR HEMOGLOBIN CONC 34.7 GM/DL 32.0-36.0 (BEAKER) (test code = 752) RED CELL DISTRIBUTION WIDTH 12.9 % 10.3-14.2 (BEAKER) (test code = 412) PLATELET COUNT (BEAKER) (test 242 K/CU MM 150-430 code = 756) MEAN PLATELET VOLUME (BEAKER) 5.4 fL 6.5-10.5 L (test code = 754) NUCLEATED RED BLOOD CELLS 0 /100 WBC 0-0 (BEAKER) (test code = 413) NEUTROPHILS RELATIVE PERCENT 75 % (BEAKER) (test code = 429) LYMPHOCYTES RELATIVE PERCENT 12 % (BEAKER) (test code = 430) MONOCYTES RELATIVE PERCENT 9 % (BEAKER) (test code = 431) EOSINOPHILS RELATIVE PERCENT 4 % (BEAKER) (test code = 432) BASOPHILS RELATIVE PERCENT 1 % (BEAKER) (test code = 437) NEUTROPHILS ABSOLUTE COUNT 5.69 K/ L 1.80-8.00 (BEAKER) (test code = 670) LYMPHOCYTES ABSOLUTE COUNT 0.87 K/ L 1.48-4.50 L (BEAKER) (test code = 414) MONOCYTES ABSOLUTE COUNT (BEAKER) 0.66 K/ L 0.00-1.30 (test code = 415) EOSINOPHILS ABSOLUTE COUNT 0.34 K/ L 0.00-0.50 (BEAKER) (test code = 416) BASOPHILS ABSOLUTE COUNT (BEAKER) 0.04 K/ L 0.00-0.20 (test code = 417) 0.00PROTEIN, RANDOM [id number] 01:20:00 Test Item Value Reference Range Interpretation Comments PROTEIN, URINE (BEAKER) (test code 313 mg/dL 0-14 H = 1569) CREATININE, RANDOM [id number] 00:48:00 Test Item Value Reference Range Interpretation Comments CREATININE URINE (BEAKER) (test 70.7 mg/dL code = 375) Reference Range: No NormalsSODIUM, RANDOM [id number] 00:48:00 Test Item Value Reference Range Interpretation Comments SODIUM URINE (BEAKER) (test code = 66 meq/L 243) Reference Range: No NormalsURINALYSIS W/ [id number] 00:47:00 Test Item Value Reference Range Interpretation Comments COLOR (BEAKER) (test code = 470) Yellow CLARITY (BEAKER) (test code = 469) Hazy SPECIFIC GRAVITY UA (BEAKER) (test 1.009 1.001-1.035 code = 468) PH UA (BEAKER) (test code = 467) 6.0 5.0-8.0 PROTEIN UA (BEAKER) (test code = 300 mg/dL Negative A 464) GLUCOSE UA (BEAKER) (test code = 150 mg/dL Negative A 365) KETONES UA (BEAKER) (test code = Negative Negative 371) BILIRUBIN UA (BEAKER) (test code = Negative Negative 462) BLOOD UA (BEAKER) (test code = 461) Trace Negative A NITRITE UA (BEAKER) (test code = Negative Negative 465) LEUKOCYTE ESTERASE UA (BEAKER) Negative Negative (test code = 466) UROBILINOGEN UA (BEAKER) (test code 0.2 mg/dL 0.2-1.0 = 463) RBC UA (BEAKER) (test code = 519) 5 /HPF WBC UA (BEAKER) (test code = 520) 5 /HPF MUCUS (BEAKER) (test code = 1574) Rare HYALINE CASTS (BEAKER) (test code = 2 /LPF 514) GRANULAR CASTS (BEAKER) (test code 2 /LPF = 515) AMORPHOUS CRYSTALS (BEAKER) (test Rare code = 1584) SOURCE(BEAKER) (test code = 2795) POCT-GLUCOSE [id number] 20:14:00 Test Item Value Reference Range Interpretation Comments POC-GLUCOSE METER 200 mg/dL 70-110 H TESTED AT [place] [address] (BEAKER) (test code = [place] May [facility] 1538) [address] POCT-GLUCOSE [id number] 17:57:00 Test Item Value Reference Range Interpretation Comments POC-GLUCOSE METER 166 mg/dL 70-110 H TESTED AT [place] [address] (BEAKER) (test code = [place] May [facility] 1538) [address] POCT-GLUCOSE [id number] 16:35:00 Test Item Value Reference Range Interpretation Comments POC-GLUCOSE METER 154 mg/dL 70-110 H TESTED AT [place] [address] (BEAKER) (test code = [place] May [facility] 1538) [address] POCT-GLUCOSE [id number] 11:52:00 Test Item Value Reference Range Interpretation Comments POC-GLUCOSE METER 169 mg/dL 70-110 H TESTED AT [facility] 6720 (BEAKER) (test code = [place] May [place] 1538) [address] CREATINE KINASE (CK)2016-10-02 11:08:00 Test Item Value Reference Range Interpretation Comments CREATINE KINASE TOTAL (BEAKER) (test 64 U/L 29-200 code = 380) POCT-GLUCOSE [id number] 08:08:00 Test Item Value Reference Range Interpretation Comments POC-GLUCOSE METER 186 mg/dL 70-110 H TESTED AT [facility] (BEAKER) (test code = [place] May [facility] 1538) [address] CBC W/PLT COUNT & AUTO [id number] 06:47:00 Test Item Value Reference Range Interpretation Comments WHITE BLOOD CELL COUNT (BEAKER) 8.3 K/ L 4.0-10.0 (test code = 775) RED BLOOD CELL COUNT (BEAKER) 2.93 M/ L 4.20-5.80 L (test code = 761) HEMOGLOBIN (BEAKER) (test code = 9.6 GM/DL 13.0-16.8 L 410) HEMATOCRIT (BEAKER) (test code = 28.1 % 40.0-50.0 L 411) MEAN CORPUSCULAR VOLUME (BEAKER) 95.7 fL 82.0-98.0 (test code = 753) MEAN CORPUSCULAR HEMOGLOBIN 32.8 pg 27.0-33.0 (BEAKER) (test code = 751) MEAN CORPUSCULAR HEMOGLOBIN CONC 34.2 GM/DL 32.0-36.0 (BEAKER) (test code = 752) RED CELL DISTRIBUTION WIDTH 11.9 % 10.3-14.2 (BEAKER) (test code = 412) PLATELET COUNT (BEAKER) (test 285 K/CU MM 150-430 code = 756) MEAN PLATELET VOLUME (BEAKER) 5.3 fL 6.5-10.5 L (test code = 754) NUCLEATED RED BLOOD CELLS 0 /100 WBC 0-0 (BEAKER) (test code = 413) NEUTROPHILS RELATIVE PERCENT 75 % (BEAKER) (test code = 429) LYMPHOCYTES RELATIVE PERCENT 13 % (BEAKER) (test code = 430) MONOCYTES RELATIVE PERCENT 7 % (BEAKER) (test code = 431) EOSINOPHILS RELATIVE PERCENT 4 % (BEAKER) (test code = 432) BASOPHILS RELATIVE PERCENT 1 % (BEAKER) (test code = 437) NEUTROPHILS ABSOLUTE COUNT 6.25 K/ L 1.80-8.00 (BEAKER) (test code = 670) LYMPHOCYTES ABSOLUTE COUNT 1.08 K/ L 1.48-4.50 L (BEAKER) (test code = 414) MONOCYTES ABSOLUTE COUNT (BEAKER) 0.61 K/ L 0.00-1.30 (test code = 415) EOSINOPHILS ABSOLUTE COUNT 0.34 K/ L 0.00-0.50 (BEAKER) (test code = 416) BASOPHILS ABSOLUTE COUNT (BEAKER) 0.05 K/ L 0.00-0.20 (test code = 417) 0.00BASIC METABOLIC [id number] 06:36:00 Test Item Value Reference Range Interpretation Comments SODIUM (BEAKER) 140 meq/L 136-145 (test code = 381) POTASSIUM (BEAKER) 4.1 meq/L 3.5-5.1 (test code = 379) CHLORIDE (BEAKER) 108 meq/L 98-107 H (test code = 382) CO2 (BEAKER) (test 18 meq/L 22-29 L code = 355) BLOOD UREA NITROGEN 53 mg/dL 7-21 H (BEAKER) (test code = 354) CREATININE (BEAKER) 4.51 mg/dL 0.57-1.25 H (test code = 358) GLUCOSE RANDOM 192 mg/dL 70-105 H (BEAKER) (test code = 652) CALCIUM (BEAKER) 8.0 mg/dL 8.4-10.2 L (test code = 697) EGFR (BEAKER) (test 14 mL/min/1.73 ESTIMA JAMIE GFR IS code = 1092) sq m NOT ACCURATE CREATININE CLEARANCE IN PREDICTING GLOMERULAR FILTRATION RATE . ESTIMATED GFR I S NOT APPLICABLE FOR DIALYSIS PATIEN TS. [id number] 06:35:00 Test Item Value Reference Range Interpretation Comments PHOSPHORUS (BEAKER) (test code = 6.0 mg/dL 2.3-4.7 H 604) [id number] 06:35:00 Test Item Value Reference Range Interpretation Comments MAGNESIUM (BEAKER) (test code = 2.0 mg/dL 1.6-2.6 627) BLOOD [id number] 00:00:00 Test Item Value Reference Range Interpretation Comments CULTURE (BEAKER) (test No growth in 5 days code = 1095) BLOOD [id number] 00:00:00 Test Item Value Reference Range Interpretation Comments CULTURE ([facility]) (test No growth in 5 days code = 1095) POCT-GLUCOSE [id number] 21:27:00 Test Item Value Reference Range Interpretation Comments POC-GLUCOSE METER 76 mg/dL 70-110 Notified R Ruma JUNE/TESTED AT ([facility]) ([address]) [facility] [address] POCT-GLUCOSE [id number] 18:26:00 Test Item Value Reference Range Interpretation Comments POC-GLUCOSE METER 216 mg/dL 70-110 H TESTED AT [place] [address] ([facility]) ([place] = [place] [facility] 1538) [address] POCT-GLUCOSE [id number] 07:30:00 Test Item Value Reference Range Interpretation Comments POC-GLUCOSE METER 118 mg/dL 70-110 H TESTED AT [place] [address] ([facility]) (test code = [place] [facility] 1538) [address] POCT-GLUCOSE [id number] 21:11:00 Test Item Value Reference Range Interpretation Comments POC-GLUCOSE METER 78 mg/dL 70-110 TESTED AT [place] [address] ([facility]) (test code = [place] [facility] [address] 1538) POCT-GLUCOSE [id number] 18:21:00 Test Item Value Reference Range Interpretation Comments POC-GLUCOSE METER 150 mg/dL 70-110 H TESTED AT [place] [address] ([facility]) (test code = [place] [facility] 1538) [address] POCT-GLUCOSE [id number] 13:30:00 Test Item Value Reference Range Interpretation Comments POC-GLUCOSE METER 300 mg/dL 70-110 H TESTED AT [place] [address] ([facility]) (test code = [place] [facility] 1538) [address] POCT-GLUCOSE [id number] 07:35:00 Test Item Value Reference Range Interpretation Comments POC-GLUCOSE METER 84 mg/dL 70-110 TESTED AT [place] [address] ([facility]) (test code = [place] [facility] [address] 1538) CALCIUM, [id number] 06:17:00 Test Item Value Reference Range Interpretation Comments CALCIUM IONIZED (BEAKER) (test 0.94 mmol/L 1.12-1.27 L code = 698) PH, BLOOD (BEAKER) (test code = 7.42 1810) BASIC METABOLIC [id number] 05:01:00 Test Item Value Reference Range Interpretation Comments SODIUM (BEAKER) 143 meq/L 136-145 (test code = 381) POTASSIUM (BEAKER) 3.8 meq/L 3.5-5.1 (test code = 379) CHLORIDE (BEAKER) 111 meq/L 98-107 H (test code = 382) CO2 (BEAKER) (test 22 meq/L 22-29 code = 355) BLOOD UREA NITROGEN 35 mg/dL 7-21 H (BEAKER) (test code = 354) CREATININE (BEAKER) 2.53 mg/dL 0.57-1.25 H (test code = 358) GLUCOSE RANDOM 75 mg/dL 70-105 (BEAKER) (test code = 652) CALCIUM (BEAKER) 8.2 mg/dL 8.4-10.2 L (test code = 697) EGFR (BEAKER) (test 26 mL/min/1.73 ESTIMA JAMIE GFR IS code = 1092) sq m NOT ACCURATE CREATININE CLEARANCE IN PREDICTING GLOMERULAR FILTRATION RATE . ESTIMATED GFR I S NOT APPLICABLE FOR DIALYSIS PATIEN TS. [id number] 04:57:00 Test Item Value Reference Range Interpretation Comments PHOSPHORUS (BEAKER) (test code = 4.4 mg/dL 2.3-4.7 604) [id number] 04:57:00 Test Item Value Reference Range Interpretation Comments MAGNESIUM (BEAKER) (test code = 1.8 mg/dL 1.6-2.6 627) CREATINE KINASE (CK)2016-09-30 04:57:00 Test Item Value Reference Range Interpretation Comments CREATINE KINASE TOTAL (BEAKER) (test 67 U/L 29-200 code = 380) CBC W/PLT COUNT & AUTO [id number] 04:43:00 Test Item Value Reference Range Interpretation Comments WHITE BLOOD CELL COUNT (BEAKER) 7.8 K/ L 4.0-10.0 (test code = 775) RED BLOOD CELL COUNT (BEAKER) 2.96 M/ L 4.20-5.80 L (test code = 761) HEMOGLOBIN (BEAKER) (test code = 10.1 GM/DL 13.0-16.8 L 410) HEMATOCRIT (BEAKER) (test code = 28.1 % 40.0-50.0 L 411) MEAN CORPUSCULAR VOLUME (BEAKER) 95.0 fL 82.0-98.0 (test code = 753) MEAN CORPUSCULAR HEMOGLOBIN 34.1 pg 27.0-33.0 H (BEAKER) (test code = 751) MEAN CORPUSCULAR HEMOGLOBIN CONC 35.9 GM/DL 32.0-36.0 (BEAKER) (test code = 752) RED CELL DISTRIBUTION WIDTH 13.1 % 10.3-14.2 (BEAKER) (test code = 412) PLATELET COUNT (BEAKER) (test 312 K/CU MM 150-430 code = 756) MEAN PLATELET VOLUME (BEAKER) 5.0 fL 6.5-10.5 L (test code = 754) NUCLEATED RED BLOOD CELLS 0 /100 WBC 0-0 (BEAKER) (test code = 413) NEUTROPHILS RELATIVE PERCENT 73 % (BEAKER) (test code = 429) LYMPHOCYTES RELATIVE PERCENT 14 % (BEAKER) (test code = 430) MONOCYTES RELATIVE PERCENT 7 % (BEAKER) (test code = 431) EOSINOPHILS RELATIVE PERCENT 5 % (BEAKER) (test code = 432) BASOPHILS RELATIVE PERCENT 1 % (BEAKER) (test code = 437) NEUTROPHILS ABSOLUTE COUNT 5.75 K/ L 1.80-8.00 (BEAKER) (test code = 670) LYMPHOCYTES ABSOLUTE COUNT 1.13 K/ L 1.48-4.50 L (BEAKER) (test code = 414) MONOCYTES ABSOLUTE COUNT (BEAKER) 0.53 K/ L 0.00-1.30 (test code = 415) EOSINOPHILS ABSOLUTE COUNT 0.39 K/ L 0.00-0.50 (BEAKER) (test code = 416) BASOPHILS ABSOLUTE COUNT (BEAKER) 0.05 K/ L 0.00-0.20 (test code = 417) 0.00POCT-GLUCOSE [id number] 21:14:00 Test Item Value Reference Range Interpretation Comments POC-GLUCOSE METER 126 mg/dL 70-110 H TESTED AT [facility] [address] ([facility]) (test code = CLAIRE HOFFMAN 1538) [id number] POCT-GLUCOSE [id number] 17:35:00 Test Item Value Reference Range Interpretation Comments POC-GLUCOSE METER 91 mg/dL 70-110 TESTED AT [facility] (BEAKER) (test code = [facility] [address] 1538) POCT-GLUCOSE [id number] 13:05:00 Test Item Value Reference Range Interpretation Comments POC-GLUCOSE METER 174 mg/dL 70-110 H TESTED AT [facility] (BEAKER) (test code = [facility] 1538) [id number] POCT-GLUCOSE [id number] 07:27:00 Test Item Value Reference Range Interpretation Comments POC-GLUCOSE METER 100 mg/dL 70-110 TESTED AT [place] [address] (BEAKER) (test code = [facility] 1538) [address] CALCIUM, [id number] 06:32:00 Test Item Value Reference Range Interpretation Comments CALCIUM IONIZED (BEAKER) (test 1.06 mmol/L 1.12-1.27 L code = 698) PH, BLOOD (BEAKER) (test code = 7.42 1810) BASIC METABOLIC [id number] 05:51:00 Test Item Value Reference Range Interpretation Comments SODIUM (BEAKER) 142 meq/L 136-145 (test code = 381) POTASSIUM (BEAKER) 4.1 meq/L 3.5-5.1 (test code = 379) CHLORIDE (BEAKER) 111 meq/L 98-107 H (test code = 382) CO2 (BEAKER) (test 23 meq/L 22-29 code = 355) BLOOD UREA NITROGEN 36 mg/dL 7-21 H (BEAKER) (test code = 354) CREATININE (BEAKER) 2.41 mg/dL 0.57-1.25 H (test code = 358) GLUCOSE RANDOM 94 mg/dL 70-105 (BEAKER) (test code = 652) CALCIUM (BEAKER) 8.5 mg/dL 8.4-10.2 (test code = 697) EGFR (BEAKER) (test 28 mL/min/1.73 ESTIMA JAMIE GFR IS code = 1092) sq m NOT ACCURATE CREATININE CLEARANCE IN PREDICTING GLOMERULAR FILTRATION RATE . ESTIMATED GFR I S NOT APPLICABLE FOR DIALYSIS PATIEN TS. [id number] 05:49:00 Test Item Value Reference Range Interpretation Comments PHOSPHORUS (BEAKER) (test code = 4.2 mg/dL 2.3-4.7 604) [id number] 05:49:00 Test Item Value Reference Range Interpretation Comments MAGNESIUM (BEAKER) (test code = 1.9 mg/dL 1.6-2.6 627) CBC W/PLT COUNT & AUTO [id number] 05:16:00 Test Item Value Reference Range Interpretation Comments WHITE BLOOD CELL COUNT (BEAKER) 8.1 K/ L 4.0-10.0 (test code = 775) RED BLOOD CELL COUNT (BEAKER) 3.07 M/ L 4.20-5.80 L (test code = 761) HEMOGLOBIN (BEAKER) (test code = 10.2 GM/DL 13.0-16.8 L 410) HEMATOCRIT (BEAKER) (test code = 29.1 % 40.0-50.0 L 411) MEAN CORPUSCULAR VOLUME (BEAKER) 94.9 fL 82.0-98.0 (test code = 753) MEAN CORPUSCULAR HEMOGLOBIN 33.2 pg 27.0-33.0 H (BEAKER) (test code = 751) MEAN CORPUSCULAR HEMOGLOBIN CONC 35.0 GM/DL 32.0-36.0 (BEAKER) (test code = 752) RED CELL DISTRIBUTION WIDTH 12.2 % 10.3-14.2 (BEAKER) (test code = 412) PLATELET COUNT (BEAKER) (test 331 K/CU MM 150-430 code = 756) MEAN PLATELET VOLUME (BEAKER) 5.2 fL 6.5-10.5 L (test code = 754) NUCLEATED RED BLOOD CELLS 0 /100 WBC 0-0 (BEAKER) (test code = 413) NEUTROPHILS RELATIVE PERCENT 71 % (BEAKER) (test code = 429) LYMPHOCYTES RELATIVE PERCENT 14 % (BEAKER) (test code = 430) MONOCYTES RELATIVE PERCENT 8 % (BEAKER) (test code = 431) EOSINOPHILS RELATIVE PERCENT 6 % (BEAKER) (test code = 432) BASOPHILS RELATIVE PERCENT 1 % (BEAKER) (test code = 437) NEUTROPHILS ABSOLUTE COUNT 5.74 K/ L 1.80-8.00 (BEAKER) (test code = 670) LYMPHOCYTES ABSOLUTE COUNT 1.17 K/ L 1.48-4.50 L (BEAKER) (test code = 414) MONOCYTES ABSOLUTE COUNT (BEAKER) 0.67 K/ L 0.00-1.30 (test code = 415) EOSINOPHILS ABSOLUTE COUNT 0.46 K/ L 0.00-0.50 (BEAKER) (test code = 416) BASOPHILS ABSOLUTE COUNT (BEAKER) 0.06 K/ L 0.00-0.20 (test code = 417) 0.00POCT-GLUCOSE [id number] 20:49:00 Test Item Value Reference Range Interpretation Comments POC-GLUCOSE METER 106 mg/dL 70-110 TESTED AT [place] [address] ([facility]) (test code = [facility] 1538) [id number] POCT-GLUCOSE [id number] 17:24:00 Test Item Value Reference Range Interpretation Comments POC-GLUCOSE METER 107 mg/dL 70-110 TESTED AT [place] [address] ([facility]) (test code = [facility] 1538) [id number] POCT-GLUCOSE [id number] 12:44:00 Test Item Value Reference Range Interpretation Comments POC-GLUCOSE METER 262 mg/dL 70-110 H TESTED AT [place] [address] ([facility]) (test code = [facility] 1538) [id number] POCT-GLUCOSE [id number] 10:20:00 Test Item Value Reference Range Interpretation Comments POC-GLUCOSE METER 280 mg/dL 70-110 H TESTED AT [place] [address] ([facility]) (test code = [facility] 1538) [id number] WOUND CULTURE + GRAM [id number] 08:31:00 Test Item Value Reference Range Interpretation Comments CULTURE (BEAKER) (test code No growth = 1095) GRAM STAIN RESULT (BEAKER) No WBCs (test code = 1123) GRAM STAIN RESULT (BEAKER) No organisms seen (test code = 80152) CALCIUM, [id number] 05:12:00 Test Item Value Reference Range Interpretation Comments CALCIUM IONIZED (BEAKER) (test 0.97 mmol/L 1.12-1.27 L code = 698) PH, BLOOD (BEAKER) (test code = 7.48 1810) BASIC METABOLIC [id number] 04:38:00 Test Item Value Reference Range Interpretation Comments SODIUM (BEAKER) 140 meq/L 136-145 (test code = 381) POTASSIUM (BEAKER) 4.2 meq/L 3.5-5.1 (test code = 379) CHLORIDE (BEAKER) 110 meq/L 98-107 H (test code = 382) CO2 (BEAKER) (test 21 meq/L 22-29 L code = 355) BLOOD UREA NITROGEN 45 mg/dL 7-21 H (BEAKER) (test code = 354) CREATININE (BEAKER) 2.79 mg/dL 0.57-1.25 H (test code = 358) GLUCOSE RANDOM 130 mg/dL 70-105 H (BEAKER) (test code = 652) CALCIUM (BEAKER) 8.0 mg/dL 8.4-10.2 L (test code = 697) EGFR (BEAKER) (test 24 mL/min/1.73 ESTIMA JAMIE GFR IS code = 1092) sq m NOT ACCURATE CREATININE CLEARANCE IN PREDICTING GLOMERULAR FILTRATION RATE . ESTIMATED GFR I S NOT APPLICABLE FOR DIALYSIS PATIEN TS. [id number] 04:37:00 Test Item Value Reference Range Interpretation Comments MAGNESIUM (BEAKER) (test code = 1.9 mg/dL 1.6-2.6 627) [id number] 04:36:00 Test Item Value Reference Range Interpretation Comments PHOSPHORUS (BEAKER) (test code = 3.9 mg/dL 2.3-4.7 604) CBC W/PLT COUNT & AUTO [id number] 04:32:00 Test Item Value Reference Range Interpretation Comments WHITE BLOOD CELL COUNT (BEAKER) 8.1 K/ L 4.0-10.0 (test code = 775) RED BLOOD CELL COUNT (BEAKER) 2.22 M/ L 4.20-5.80 L (test code = 761) HEMOGLOBIN (BEAKER) (test code = 7.2 GM/DL 13.0-16.8 L 410) HEMATOCRIT (BEAKER) (test code = 21.0 % 40.0-50.0 L 411) MEAN CORPUSCULAR VOLUME (BEAKER) 94.8 fL 82.0-98.0 (test code = 753) MEAN CORPUSCULAR HEMOGLOBIN 32.7 pg 27.0-33.0 (BEAKER) (test code = 751) MEAN CORPUSCULAR HEMOGLOBIN CONC 34.5 GM/DL 32.0-36.0 (BEAKER) (test code = 752) RED CELL DISTRIBUTION WIDTH 11.8 % 10.3-14.2 (BEAKER) (test code = 412) PLATELET COUNT (BEAKER) (test 345 K/CU MM 150-430 code = 756) MEAN PLATELET VOLUME (BEAKER) 5.2 fL 6.5-10.5 L (test code = 754) NUCLEATED RED BLOOD CELLS 0 /100 WBC 0-0 (BEAKER) (test code = 413) NEUTROPHILS RELATIVE PERCENT 74 % (BEAKER) (test code = 429) LYMPHOCYTES RELATIVE PERCENT 14 % (BEAKER) (test code = 430) MONOCYTES RELATIVE PERCENT 7 % (BEAKER) (test code = 431) EOSINOPHILS RELATIVE PERCENT 5 % (BEAKER) (test code = 432) BASOPHILS RELATIVE PERCENT 1 % (BEAKER) (test code = 437) NEUTROPHILS ABSOLUTE COUNT 6.00 K/ L 1.80-8.00 (BEAKER) (test code = 670) LYMPHOCYTES ABSOLUTE COUNT 1.10 K/ L 1.48-4.50 L (BEAKER) (test code = 414) MONOCYTES ABSOLUTE COUNT (BEAKER) 0.53 K/ L 0.00-1.30 (test code = 415) EOSINOPHILS ABSOLUTE COUNT 0.39 K/ L 0.00-0.50 (BEAKER) (test code = 416) BASOPHILS ABSOLUTE COUNT (BEAKER) 0.06 K/ L 0.00-0.20 (test code = 417) 0.00POCT-GLUCOSE [id number] 22:05:00 Test Item Value Reference Range Interpretation Comments POC-GLUCOSE METER 152 mg/dL 70-110 H TESTED AT [place] [address] ([facility]) (test code = [facility] 1538) [id number] POCT-GLUCOSE [id number] 15:59:00 Test Item Value Reference Range Interpretation Comments POC-GLUCOSE METER 121 mg/dL 70-110 H TESTED AT [place] [address] ([facility]) (test code = [facility] 1538) [id number] POCT-GLUCOSE [id number] 12:12:00 Test Item Value Reference Range Interpretation Comments POC-GLUCOSE METER 301 mg/dL 70-110 H TESTED AT [place] [address] ([facility]) (test code = [facility] 1538) [id number] POCT-GLUCOSE [id number] 07:43:00 Test Item Value Reference Range Interpretation Comments POC-GLUCOSE METER 170 mg/dL 70-110 H TESTED AT [facility] 6720 (BEAKER) (test code = [facility] 1538) [id number] CBC W/PLT COUNT & AUTO [id number] 07:20:00 Test Item Value Reference Range Interpretation Comments WHITE BLOOD CELL COUNT (BEAKER) 7.1 K/ L 4.0-10.0 (test code = 775) RED BLOOD CELL COUNT (BEAKER) 2.21 M/ L 4.20-5.80 L (test code = 761) HEMOGLOBIN (BEAKER) (test code = 7.3 GM/DL 13.0-16.8 L 410) HEMATOCRIT (BEAKER) (test code = 20.9 % 40.0-50.0 L 411) MEAN CORPUSCULAR VOLUME (BEAKER) 94.4 fL 82.0-98.0 (test code = 753) MEAN CORPUSCULAR HEMOGLOBIN 33.0 pg 27.0-33.0 (BEAKER) (test code = 751) MEAN CORPUSCULAR HEMOGLOBIN CONC 35.0 GM/DL 32.0-36.0 (BEAKER) (test code = 752) RED CELL DISTRIBUTION WIDTH 12.0 % 10.3-14.2 (BEAKER) (test code = 412) PLATELET COUNT (BEAKER) (test 321 K/CU MM 150-430 code = 756) MEAN PLATELET VOLUME (BEAKER) 5.4 fL 6.5-10.5 L (test code = 754) NUCLEATED RED BLOOD CELLS 3 /100 WBC 0-0 H (BEAKER) (test code = 413) NEUTROPHILS RELATIVE PERCENT 70 % (BEAKER) (test code = 429) LYMPHOCYTES RELATIVE PERCENT 17 % (BEAKER) (test code = 430) MONOCYTES RELATIVE PERCENT 7 % (BEAKER) (test code = 431) EOSINOPHILS RELATIVE PERCENT 5 % (BEAKER) (test code = 432) BASOPHILS RELATIVE PERCENT 1 % (BEAKER) (test code = 437) NEUTROPHILS ABSOLUTE COUNT 4.96 K/ L 1.80-8.00 (BEAKER) (test code = 670) LYMPHOCYTES ABSOLUTE COUNT 1.23 K/ L 1.48-4.50 L (BEAKER) (test code = 414) MONOCYTES ABSOLUTE COUNT (BEAKER) 0.50 K/ L 0.00-1.30 (test code = 415) EOSINOPHILS ABSOLUTE COUNT 0.34 K/ L 0.00-0.50 (BEAKER) (test code = 416) BASOPHILS ABSOLUTE COUNT (BEAKER) 0.04 K/ L 0.00-0.20 (test code = 417) 0.00BASIC METABOLIC [id number] 06:23:00 Test Item Value Reference Range Interpretation Comments SODIUM (BEAKER) 140 meq/L 136-145 (test code = 381) POTASSIUM (BEAKER) 4.2 meq/L 3.5-5.1 (test code = 379) CHLORIDE (BEAKER) 108 meq/L 98-107 H (test code = 382) CO2 (BEAKER) (test 23 meq/L 22-29 code = 355) BLOOD UREA NITROGEN 53 mg/dL 7-21 H (BEAKER) (test code = 354) CREATININE (BEAKER) 2.97 mg/dL 0.57-1.25 H (test code = 358) GLUCOSE RANDOM 152 mg/dL 70-105 H (BEAKER) (test code = 652) CALCIUM (BEAKER) 8.3 mg/dL 8.4-10.2 L (test code = 697) EGFR (BEAKER) (test 22 mL/min/1.73 ESTIMA JAMIE GFR IS code = 1092) sq m NOT ACCURATE CREATININE CLEARANCE IN PREDICTING GLOMERULAR FILTRATION RATE . ESTIMATED GFR I S NOT APPLICABLE FOR DIALYSIS PATIEN TS. [id number] 06:21:00 Test Item Value Reference Range Interpretation Comments PHOSPHORUS (BEAKER) (test code = 4.7 mg/dL 2.3-4.7 604) [id number] 06:21:00 Test Item Value Reference Range Interpretation Comments MAGNESIUM (BEAKER) (test code = 1.9 mg/dL 1.6-2.6 627) CALCIUM, [id number] 06:07:00 Test Item Value Reference Range Interpretation Comments CALCIUM IONIZED (BEAKER) (test 1.00 mmol/L 1.12-1.27 L code = 698) PH, BLOOD (BEAKER) (test code = 7.39 1810) POCT-GLUCOSE [id number] 21:59:00 Test Item Value Reference Range Interpretation Comments POC-GLUCOSE METER 249 mg/dL 70-110 H TESTED AT [facility] 6720 (BEAKER) (test code = [facility] 1538) [address] PROTEIN, RANDOM [id number] 20:43:00 Test Item Value Reference Range Interpretation Comments PROTEIN, URINE (BEAKER) (test code 519 mg/dL 0-14 H = 1569) CREATININE, RANDOM [id number] 19:50:00 Test Item Value Reference Range Interpretation Comments CREATININE URINE (BEAKER) (test 104.0 mg/dL code = 375) Reference Range: No NormalsURINALYSIS W/ [id number] 19:42:00 Test Item Value Reference Range Interpretation Comments COLOR (BEAKER) (test code = 470) Yellow CLARITY (BEAKER) (test code = 469) Hazy SPECIFIC GRAVITY UA (BEAKER) (test 1.011 1.001-1.035 code = 468) PH UA (BEAKER) (test code = 467) 5.5 5.0-8.0 PROTEIN UA (BEAKER) (test code = 300 mg/dL Negative A 464) GLUCOSE UA (BEAKER) (test code = 150 mg/dL Negative A 365) KETONES UA (BEAKER) (test code = Negative Negative 371) BILIRUBIN UA (BEAKER) (test code = Negative Negative 462) BLOOD UA (BEAKER) (test code = 461) Negative Negative NITRITE UA (BEAKER) (test code = Negative Negative 465) LEUKOCYTE ESTERASE UA (BEAKER) Negative Negative (test code = 466) UROBILINOGEN UA (BEAKER) (test code 0.2 mg/dL 0.2-1.0 = 463) RBC UA (BEAKER) (test code = 519) 2 /HPF WBC UA (BEAKER) (test code = 520) 1 /HPF MUCUS (BEAKER) (test code = 1574) Few SQUAMOUS EPITHELIAL (BEAKER) (test 1 /HPF code = 516) SOURCE(BEAKER) (test code = 2795) POCT-GLUCOSE [id number] 18:15:00 Test Item Value Reference Range Interpretation Comments POC-GLUCOSE METER 88 mg/dL 70-110 TESTED AT [facility] 6720 (BEAKER) (test code = [facility] [address] 1538) POCT-GLUCOSE [id number] 18:04:00 Test Item Value Reference Range Interpretation Comments POC-GLUCOSE METER 55 mg/dL 70-110 L TESTED AT [place] [address] ([facility]) (test code = [facility] [address] 1538) POCT-GLUCOSE [id number] 18:04:00 Test Item Value Reference Range Interpretation Comments POC-GLUCOSE METER 55 mg/dL 70-110 L TESTED AT [place] [address] ([facility]) (test code = [facility] [address] 1538) HEMOGLOBIN [id number] 17:00:00 Test Item Value Reference Range Interpretation Comments HEMOGLOBIN A1C ([facility]) (test code = 7.1 % 4.3-6.1 H 368) POCT-GLUCOSE [id number] 12:12:00 Test Item Value Reference Range Interpretation Comments POC-GLUCOSE METER 333 mg/dL 70-110 H TESTED AT [place] [address] ([facility]) (test code = [facility] 1538) [address] POCT-GLUCOSE [id number] 08:17:00 Test Item Value Reference Range Interpretation Comments POC-GLUCOSE METER 317 mg/dL 70-110 H TESTED AT [place] [address] ([facility]) (test code = [facility] 1538) [id number] POCT-GLUCOSE [id number] 02:30:00 Test Item Value Reference Range Interpretation Comments POC-GLUCOSE METER 242 mg/dL 70-110 H TESTED AT [place] [address] ([facility]) (test code = [facility] 1538) [address] POCT-GLUCOSE [id number] 22:28:00 Test Item Value Reference Range Interpretation Comments POC-GLUCOSE METER 325 mg/dL 70-110 H TESTED AT [place] [address] ([facility]) (test code = [facility] 1538) [address] BASIC METABOLIC [id number] 16:52:00 Test Item Value Reference Range Interpretation Comments SODIUM (BEAKER) 140 meq/L 136-145 (test code = 381) POTASSIUM (BEAKER) 4.4 meq/L 3.5-5.1 (test code = 379) CHLORIDE (BEAKER) 106 meq/L 98-107 (test code = 382) CO2 (BEAKER) (test 23 meq/L 22-29 code = 355) BLOOD UREA NITROGEN 49 mg/dL 7-21 H (BEAKER) (test code = 354) CREATININE (BEAKER) 2.35 mg/dL 0.57-1.25 H (test code = 358) GLUCOSE RANDOM 148 mg/dL 70-105 H (BEAKER) (test code = 652) CALCIUM (BEAKER) 8.8 mg/dL 8.4-10.2 (test code = 697) EGFR (BEAKER) (test 29 mL/min/1.73 ESTIMA JAMIE GFR IS code = 1092) sq m NOT ACCURATE CREATININE CLEARANCE IN PREDICTING GLOMERULAR FILTRATION RATE . ESTIMATED GFR I S NOT APPLICABLE FOR DIALYSIS PATIEN TS. CBC W/PLT COUNT & AUTO [id number] 16:43:00 Test Item Value Reference Range Interpretation Comments WHITE BLOOD CELL COUNT (BEAKER) 14.1 K/ L 4.0-10.0 H (test code = 775) RED BLOOD CELL COUNT (BEAKER) 2.86 M/ L 4.20-5.80 L (test code = 761) HEMOGLOBIN (BEAKER) (test code = 9.4 GM/DL 13.0-16.8 L 410) HEMATOCRIT (BEAKER) (test code = 26.8 % 40.0-50.0 L 411) MEAN CORPUSCULAR VOLUME (BEAKER) 93.6 fL 82.0-98.0 (test code = 753) MEAN CORPUSCULAR HEMOGLOBIN 32.7 pg 27.0-33.0 (BEAKER) (test code = 751) MEAN CORPUSCULAR HEMOGLOBIN CONC 34.9 GM/DL 32.0-36.0 (BEAKER) (test code = 752) RED CELL DISTRIBUTION WIDTH 12.2 % 10.3-14.2 (BEAKER) (test code = 412) PLATELET COUNT (BEAKER) (test 399 K/CU MM 150-430 code = 756) MEAN PLATELET VOLUME (BEAKER) 5.1 fL 6.5-10.5 L (test code = 754) NUCLEATED RED BLOOD CELLS 0 /100 WBC 0-0 (BEAKER) (test code = 413) NEUTROPHILS RELATIVE PERCENT 84 % (BEAKER) (test code = 429) LYMPHOCYTES RELATIVE PERCENT 9 % (BEAKER) (test code = 430) MONOCYTES RELATIVE PERCENT 5 % (BEAKER) (test code = 431) EOSINOPHILS RELATIVE PERCENT 2 % (BEAKER) (test code = 432) BASOPHILS RELATIVE PERCENT 0 % (BEAKER) (test code = 437) NEUTROPHILS ABSOLUTE COUNT 11.80 K/ L 1.80-8.00 H (BEAKER) (test code = 670) LYMPHOCYTES ABSOLUTE COUNT 1.28 K/ L 1.48-4.50 L (BEAKER) (test code = 414) MONOCYTES ABSOLUTE COUNT (BEAKER) 0.74 K/ L 0.00-1.30 (test code = 415) EOSINOPHILS ABSOLUTE COUNT 0.27 K/ L 0.00-0.50 (BEAKER) (test code = 416) BASOPHILS ABSOLUTE COUNT (BEAKER) 0.03 K/ L 0.00-0.20 (test code = 417) 0.00
--- NOTE | 2020-10-10 16:35 | RAD REPORT ---
EXAM DESCRIPTION: CT - Abdomen Pelvis Wo Contrast - 10/10/2020 4:20 pm CLINICAL HISTORY: Abdominal pain. ABD PAIN COMPARISON: No comparisons TECHNIQUE: CT imaging of the abdomen and pelvis was performed without contrast. Solid organ, bowel a nd vascular assessment is limited due to lack of IV and oral contrast. All CT scans are performed using dose optimization technique as appropriate and may include automated exposure control or mA/KV adjustment according to patient size. FINDINGS: The lower lung giles are clear. The liver, spleen, pancreas, adrenal glands and right kidney are within normal limits for a limited n on-contrast examination. 4 mm calculus is present proximal left ureter resulting in mild left hydronephrosis. No bowel obstruction, free air, free fluid or abscess. The appendix is normal. The osseous structures are within normal limits. IMPRESSION: 4 mm calculus proximal left ureter resulting in mild left hydronephrosis. A limited non-contrast examination was performed as detailed.
[2020-10-10 17:26] LABS: Absolute Lymphocytes (CBC) 1.1 K/uL (0.7-4.9); Basophils % 0.6 % (0-1.3); Hematocrit 30.3 % (39.6-49.0); Lymphocytes % 8.3 % (15.3-44.8); MPV 6.4 fL (7.6-11.3); RBC Red Blood Cell Count 3.04 M/uL (4.33-5.43)
[2020-10-10] MEDS ORDERED: ONDANSETRON 4 MG/2 ML VIAL ONE (18:23)
[2020-10-10] MEDS ORDERED: MORPHINE 4 MG/ML SYR ONE (18:23)
[2020-10-10 18:39] LABS: Albumin 3.2 g/dL (3.4-5.0); Bilirubin Direct 0.1 mg/dL (0-0.2); Bilirubin Total 0.4 mg/dL (0.2-1.0); Potassium 4.8 mmol/L (3.5-5.1); Protein, Total 7.7 g/dL (6.4-8.2)
--- NOTE | 2020-10-10 18:55 | ER ---
Nurse's Notes [facility] Name: Homer Bradshaw Age: 60 yrs Sex: Male : 1960 Arrival Date: 10/10/2020 Time: 14:30 Bed 6 Private MD: Diagnosis: Urinary calculus, unspecified-left sided Presentation: 10/10 14:59 Chief complaint: Patient states: Pain on the L groin area radiating to the back started ca1 this morning around 1000. Reports N/V/D. Coronavirus screen: Client denies travel out of the [place] in the last 14 days. diarrhea, nausea, vomiting. Client presents with at least one sign or symptom that may indicate coronavirus-19. Standard/surgical mask placed on the client. Provider contacted for isolation considerations. Ebola Screen: Patient negative for fever greater than or equal to 101.5 degrees Fahrenheit, and additional compatible Ebola Virus Disease symptoms Patient denies exposure to infectious person. Patient denies travel to an Ebola-affected area in the 21 days before illness onset. No symptoms or risks identified at this time. Initial Sepsis Screen: Does the patient meet any 2 criteria? No. Patient's initial sepsis screen is negative. Does the patient have a suspected source of infection? No. Patient's initial sepsis screen is negative. Risk Assessment: Do you want to hurt yourself or someone else? Patient reports no desire to harm self or others. Onset of symptoms was October 10, 2020. 14:59 Method Of Arrival: Wheelchair ca1 14:59 Acuity: MICHELLE 2 ca1 Triage Assessment: 16:52 General: Behavior is calm, cooperative. ap3 Historical: - Allergies: 15:02 Vancomycin; ca1 - PMHx: 15:02 Diabetes - IDDM; Dialysis; Hypertension; ca1 - PSHx: 15:02 Knee surgery; CABG; dialysis port; ca1 - Immunization history:: Client reports receiving the 2nd dose of the Covid vaccine, Client reports receiving the 1st dose of the Covid vaccine, Flu vaccine is up to date. - Social history:: Smoking status: Patient/guardian denies using tobacco, the patient reports quitting approximately 6 years ago. - Family history:: not pertinent. Screenin:52 Abuse screen: Denies threats or abuse. Nutritional screening: No deficits noted. ap3 Tuberculosis screening: No symptoms or risk factors identified. Fall Risk None identified. Assessment: 16:47 General: Appears uncomfortable. General: PATIENT IS ON DIALYSIS AND HAS A FISTULA TO ap3 HIS RIGHT ARM. STATES HE STILL PRODUCES URINE, BUT ONLY URINATES TWICE A DAY. . Pain: Complains of pain in left flank Pain radiates to left lower quadrant Pain began gradually. Neuro: Level of Consciousness is awake, alert, obeys commands, Oriented to person, place, time, situation. Cardiovascular: Capillary refill < 3 seconds Patient's skin is warm and dry. Respiratory: Airway is patent Respiratory effort is even, unlabored, Respiratory pattern is regular, symmetrical. GI: Bowel sounds present X 4 quads. Abd is soft Abd is non tender. : No signs and/or symptoms were reported regarding the genitourinary system. EENT: No signs and/or symptoms were reported regarding the EENT system. Derm:. 18:50 Reassessment: Patient and/or family updated on plan of care and expected duration. Pain ap3 level reassessed. Patient is alert, oriented x 3, equal unlabored respirations, skin warm/dry/pink. Vital Signs: 14:59 BP 157 / 41; Pulse 69; Resp 17 S; Temp 97.6(TE); Pulse Ox 97% on R/A; Weight 92.99 kg ca1 (R); Height 6 ft. 1 in. (185.42 cm) (R); Pain 3/10; 18:00 BP 182 / 67; Pulse 68; ap3 18:49 BP 181 / 64; Pulse 67; ap3 14:59 Body Mass Index 27.05 (92.99 kg, 185.42 cm) ca1 ED Course: 14:30 Patient arrived in ED. as 15:01 Triage completed. ca1 15:02 Arm band placed on right wrist. ca1 15:47 Matias Ellison NP is PHCP. pm1 15:47 Kuldeep Zavaleta MD is Attending Physician. pm1 16:19 CT Abd/Pelvis - Without Contrast In Process Unspecified. EDMS 16:44 Negrita Snell is Primary Nurse. kg 16:52 Patient has correct armband on for positive identification. Bed in low position. Call ap3 light in reach. Side rails up X 1. Adult w/ patient. Pulse ox on. NIBP on. Warm blanket given. 17:56 Inserted saline lock: 20 gauge in right antecubital area, using aseptic technique. kg 18:54 Atul Hayes MD is Referral Physician. ma2 18:59 No provider procedures requiring assistance completed. IV discontinued, intact, kg bleeding controlled, No redness/swelling at site. Pressure dressing applied. Administered Medications: 18:10 Drug: morphine 4 mg Route: IVP; Site: left antecubital; kg 18:28 Follow up: Response: No adverse reaction kg 18:10 Drug: Zofran (Ondansetron) 4 mg Route: IVP; Site: left antecubital; kg 18:29 Follow up: Response: No adverse reaction kg Outcome: 18:55 Discharge ordered by . ma2 19:00 Discharged to home kg 19:00 Discharged to home ambulatory. 19:00 Condition: good 19:00 Discharge instructions given to patient, family, Instructed on discharge instructions, follow up and referral plans. Demonstrated understanding of instructions, follow-up care, medications, Prescriptions given X 3. 19:01 Patient left the ED. kg Signatures: Dispatcher [employer] EDMS Homa Bernstein Patrick, BUSINESS SUPPORT PROFESSIONAL BUSINESS SUPPORT PROFESSIONAL pm1 Kuldeep Zavaleta MD MD ma2 Sherry Rizzo RN RN ap3 Claudia Simmons RN RN ca1 Negrita Snell kg Corrections: (The following items were deleted from the chart) 15:03 14:59 Acuity: MICHELLE 3 ca1 ca1
--- NOTE | 2020-10-10 18:55 | EDPHYS ---
Physician Documentation [facility] Name: Homer Bradshaw Age: 60 yrs Sex: Male : 1960 Arrival Date: 10/10/2020 Time: 14:30 Bed 6 Private MD: ED Physician Kuldeep Zavaleta HPI: 10/10 16:06 This 60 yrs old Male presents to ER via Wheelchair with complaints of left ma2 flank pain. 16:06 Onset: The symptoms/episode began/occurred gradually, 1 day(s) ago. Onset: The ma2 symptoms/episode began/occurred gradually, 1 day(s) ago. Associated signs and symptoms: Pertinent negatives: dysuria, fever, hematuria, nausea. Severity of pain: At its worst the pain was mild in the emergency department the pain is unchanged. The patient has not experienced similar symptoms in the past. Historical: - Allergies: 15:02 Vancomycin; ca1 - PMHx: 15:02 Diabetes - IDDM; Dialysis; Hypertension; ca1 - PSHx: 15:02 Knee surgery; CABG; dialysis port; ca1 - Immunization history:: Client reports receiving the 2nd dose of the Covid vaccine, Client reports receiving the 1st dose of the Covid vaccine, Flu vaccine is up to date. - Social history:: Smoking status: Patient/guardian denies using tobacco, the patient reports quitting approximately 6 years ago. - Family history:: not pertinent. ROS: 16:06 Constitutional: Negative for fever, chills, and weight loss, Eyes: Negative for injury, ma2 pain, redness, and discharge. 16:06 All other systems are negative. Exam: 16:06 Constitutional: This is a well developed, well nourished patient who is awake, alert, ma2 and in no acute distress. ENT: Nares patent. No nasal discharge, no septal abnormalities noted. Tympanic membranes are normal and external auditory canals are clear. Oropharynx with no redness, swelling, or masses, exudates, or evidence of obstruction, uvula midline. Mucous membranes moist. Neck: Trachea midline, no thyromegaly or masses palpated, and no cervical lymphadenopathy. Supple, full range of motion without nuchal rigidity, or vertebral point tenderness. No Meningismus. Chest/axilla: Normal chest wall appearance and motion. Nontender with no deformity. No lesions are appreciated. Cardiovascular: Regular rate and rhythm with a normal S1 and S2. No gallops, murmurs, or rubs. Normal PMI, no JVD. No pulse deficits. Respiratory: Lungs have equal breath sounds bilaterally, clear to auscultation and percussion. No rales, rhonchi or wheezes noted. No increased work of breathing, no retractions or nasal flaring. Abdomen/GI: Soft, non-tender, with normal bowel sounds. No distension or tympany. No guarding or rebound. No evidence of tenderness throughout. Back: No spinal tenderness. No costovertebral tenderness. Full range of motion. Skin: Warm, dry with normal turgor. Normal color with no rashes, no lesions, and no evidence of cellulitis. MS/ Extremity: Pulses equal, no cyanosis. Neurovascular intact. Full, normal range of motion. Neuro: Awake and alert, GCS 15, oriented to person, place, time, and situation. Cranial nerves II-XII grossly intact. Motor strength 5/5 in all extremities. Sensory grossly intact. Cerebellar exam normal. Normal gait. Vital Signs: 14:59 BP 157 / 41; Pulse 69; Resp 17 S; Temp 97.6(TE); Pulse Ox 97% on R/A; Weight 92.99 kg ca1 (R); Height 6 ft. 1 in. (185.42 cm) (R); Pain 3/10; 18:00 BP 182 / 67; Pulse 68; ap3 18:49 BP 181 / 64; Pulse 67; ap3 14:59 Body Mass Index 27.05 (92.99 kg, 185.42 cm) ca1 MDM: 15:48 Patient medically screened. ma2 17:50 Differential diagnosis: appendicitis, cholecystitis, Cholelithiasis, Hepatitis. Data ma2 reviewed: vital signs, nurses notes. Counseling: I had a detailed discussion with the patient and/or guardian regarding: the historical points, exam findings, and any diagnostic results supporting the discharge/admit diagnosis, the presence of at least one elevated blood pressure reading (>120/80) during this emergency department visit. Response to treatment: the patient's symptoms have markedly improved after treatment. 10/10 16:05 Order name: Basic Metabolic Panel; Complete Time: 18:52 ma2 10/10 16:05 Order name: CBC with Diff ma2 10/10 16:05 Order name: CT Abd/Pelvis - Without Contrast; Complete Time: 17:11 [facility] 10/10 16:05 Order name: Hepatic Function; Complete Time: 18:52 [facility] 10/10 16:05 Order name: Lipase; Complete Time: 18:52 [facility] 10/10 16:05 Order name: IV Saline Lock; Complete Time: 17:21 [facility] 10/10 16:05 Order name: Labs collected and sent; Complete Time: 17:21 [facility] 10/10 17:32 Order name: Labs - recollect needed: recollect green top; Complete Time: 17:49 Administered Medications: 18:10 Drug: morphine 4 mg Route: IVP; Site: left antecubital; kg 18:28 Follow up: Response: No adverse reaction kg 18:10 Drug: Zofran (Ondansetron) 4 mg Route: IVP; Site: left antecubital; kg 18:29 Follow up: Response: No adverse reaction kg Disposition: 10/10/20 18:55 Discharged to Home. Impression: Urinary calculus, unspecified - left sided. - Condition is Stable. - Discharge Instructions: Kidney Stones. - Prescriptions for Diclofenac Sodium 75 mg Oral Tablet Sustained Release - take 1 tablet by ORAL route 2 times per day; 30 tablet. Zofran 4 mg Oral Tablet - take 1 tablet by ORAL route every 12 hours As needed; 20 tablet. Flomax 0.4 mg Oral Capsule, Sust. Release 24 hr - take 1 capsule by ORAL route once daily 1/2 hour following the same meal each day; 30 capsule. - Medication Reconciliation Form, Thank You Letter, Antibiotic Education, Prescription Opioid Use form. - Follow up: Atul Hayes MD; When: Tomorrow; Reason: Continuance of care. Signatures: Dispatcher [employer] EDMS Kuldeep Zavaleta MD MD ma2 Brenda Mann Cheryl, RN RN ca1 Negrita Snell kg Corrections: (The following items were deleted from the chart) 19:01 18:55 10/10/2020 18:55 Discharged to Home. Impression: Urinary calculus, unspecified - kg left sided. Condition is Stable. Prescriptions for Diclofenac Sodium 75 mg Oral Tablet Sustained Release - take 1 tablet by ORAL route 2 times per day; 30 tablet, Zofran 4 mg Oral Tablet - take 1 tablet by ORAL route every 12 hours As needed; 20 tablet, Flomax 0.4 mg Oral Capsule, Sust. Release 24 hr - take 1 capsule by ORAL route once daily 1/2 hour following the same meal each day; 30 capsule. and Forms are Medication Reconciliation Form, Thank You Letter, Antibiotic Education, Prescription Opioid Use. Follow up: Atul Hayes; When: Tomorrow; Reason: Continuance of care. ma2
[2020-10-10 19:38] VITALS: TEMP 97.6; O2SAT 97
[2020-10-10 19:39] LABS: Blood Morphology Comment NOT SEEN (NOT SEEN); Platelet Estimate INCR; White Blood Cell Scan OK (OK)
[2020-10-10 19:41] VITALS: BP 181/64
== END 2020-10-10 19:01 | disposition home or self-care (01) ==
LOC: ER 14:28
DX: N13.2 Hydronephrosis with renal and ureteral calculous obstruction (principal); E11.9 Type 2 diabetes mellitus without complications; I10 Essential (primary) hypertension; Z87.891 Personal history of nicotine dependence; Z95.1 Presence of aortocoronary bypass graft
CPT/HCPCS: 85025; 80048; 36415; 80076; 83690; 74176; J2405; 96374; 96375; 99284

== ENCOUNTER 2021-03-08 05:30 | Inpatient (IN) | payer MEDICARE ==
[2021-03-08 06:11] LABS: Absolute Lymphocytes (CBC) 0.4 K/uL (0.7-4.9); Basophils % 0.2 % (0-1.3); Hematocrit 29.9 % (39.6-49.0); Lymphocytes % 2.5 % (15.3-44.8); MPV 6.3 fL (7.6-11.3); RBC Red Blood Cell Count 2.96 M/uL (4.33-5.43)
[2021-03-08 06:19] LABS: Urine Blood 2+ (Negative); Urine Glucose 2+ (Negative); Urine Protein 3+ (Negative); Urine pH 8.5 (5.0-7.0)
[2021-03-08] MEDS ORDERED: ONDANSETRON 4 MG/2 ML VIAL ONE (06:22)
[2021-03-08] MEDS ORDERED: MORPHINE 4 MG/ML SYR ONE (06:22)
[2021-03-08] MEDS ORDERED: NA CHLORIDE 0.9% 500 ML ONE (06:23)
[2021-03-08 06:38] LABS: Urine Bacteria NONE SEEN /HPF (NONE SEEN); Urine RBC 20-50 /HPF (NONE SEEN)
[2021-03-08 06:39] LABS: Urine Sperm PRESENT (NONE SEEN)
[2021-03-08 06:40] LABS: Albumin 3.3 g/dL (3.4-5.0); Bilirubin Direct 0.2 mg/dL (0-0.2); Bilirubin Total 0.5 mg/dL (0.2-1.0); Potassium 4.9 mmol/L (3.5-5.1)
--- NOTE | 2021-03-08 07:09 | RAD REPORT ---
EXAM DESCRIPTION: CT - Stone Protocol - 03/08/2021 6:54 am CLINICAL HISTORY: ABD PAIN, urinary retention, right lower quadrant pain radiating to the testicles COMPARISON: Abdomen Pelvis Wo Contrast dated 10/10/2020 TECHNIQUE: Axial 3 mm thick images were obtained without oral or IV contrast. The [id number] span s the entirety of the system including uppermost abdomen and lung bases. All CT scans are performed using dose optimization technique as appropriate and may include automated exposure control or mA/KV adjustment according to patient size. FINDINGS: Mild right-sided hydronephrosis and hydroureter present down to the UVJ level. No obstruct ing or nonobstructing calculi identified. Dense arterial calcifications are present. The attenuation of the fluid within the dilated right collecting system is at least 49 Hounsfield units. This would s uggest blood and/or inflammatory debris to be present. No source is evident from this examination. Le ft-sided hydronephrosis has resolved since the October examination. No suspicious renal masses. Isodense masses and pyelonephritis are not excluded on a stone protocol CT scan. No significant adrenal findin g. Urinary bladder is fully contracted around a Rosario catheter. No significant prostate gland finding seen. Imaged portions of the liver, spleen and pancreas show no suspicious findings on non-contrast imaging . No gallbladder or biliary tree abnormality identified. No suspicious bowel findings. Appendix is normal. Contrast material in the colon is presumed to be fr om outside examination. This could potentially be medication containing bismuth or other hyperdense m aterial. No hernia, mass or bulky lymphadenopathy noted. No free air, free fluid or pneumatosis. Perinephric s tranding is present on each kidney similar to comparison. Bony degenerative changes are present similar to comparison. IMPRESSION: Mild right-sided hydronephrosis down to the UVJ level without obstructing calculus ident ifiable. Urine within the right collecting system is hyperdense which would indicate the presence of blood and /or inflammatory debris. Source full blood is not evident. This could be from a small mass, infection or recently passed stone. Isodense masses and pyelonephritis are not excluded on stone protocol technique.
--- NOTE | 2021-03-08 07:36 | ER ---
Nurse's Notes [facility] Name: Homer Bradshaw Age: 61 yrs Sex: Male : 1960 Arrival Date: 03/08/2021 Time: 05:33 Bed 13 Private MD: Diagnosis: Acute cystitis-pyelonephritis ;Severe sepsis without septic shock Presentation: 03/08 05:44 Chief complaint: Patient states: Pt states he has been having urinary retention issues wg for the last couple days. Pt is a dialysis patient and c/o RLQ Abd, R Flank pain radiating into his testicles. Pt states he has only voided small amounts. Pt states he had a kidney stone approx 3 months ago. Pt denies SOB, N/V/D, CP and dizziness. Coronavirus screen: Vaccine status: Patient reports receiving the 2nd dose of the covid vaccine. Date August 2020 Client denies travel out of the [place] in the last 14 days. Client presents with at least one sign or symptom that may indicate coronavirus-19. Ebola Screen: Patient negative for fever greater than or equal to 101.5 degrees Fahrenheit, and additional compatible Ebola Virus Disease symptoms Patient denies exposure to infectious person. Patient denies travel to an Ebola-affected area in the 21 days before illness onset. No symptoms or risks identified at this time. Initial Sepsis Screen: Does the patient meet any 2 criteria? No. Patient's initial sepsis screen is negative. Does the patient have a suspected source of infection? No. Patient's initial sepsis screen is negative. Risk Assessment: Do you want to hurt yourself or someone else? Patient reports no desire to harm self or others. Onset of symptoms was March 05, 2021. 05:44 Method Of Arrival: Wheelchair 05:44 Acuity: MICHELLE 3 wg 06:32 Note Pt reports difficulty voiding. Bladder scan completed. Unable to determine amount df1 of urine in bladder due to equipment. Verbal order for vallecillo received. 06:54 Note Critical lab Cr 7.27 notified by lab. df1 Triage Assessment: 05:48 General: Appears distressed, well developed, Behavior is cooperative, appropriate for wg age, restless. Pain: Complains of pain in RLQ Abd, Right Flank, Testicles Pain radiates to Testicles. : Reports inability to void, urgency. Historical: - Allergies: 05:48 Vancomycin; wg - Home Meds: 05:51 aspirin 81 mg Oral TbEC 1 tab once daily [Active]; atorvastatin 40 mg Oral tab 1 tab wg once daily [Active]; ferrous sulfate 325 mg (65 mg iron) Oral tab [Active]; hydrocodone-acetaminophen 7.5-325 mg Oral tab 1 tab every 6 hours [Active]; Insulin: Novolog Sub-Q [Active]; insulin-Levemir 20 unit daily [Active]; Vitamin D Oral 47115 unit every sunday [Active]; Vitamin B-12 Oral [Active]; Prevacid Oral [Active]; 06:17 metoprolol tartrate 12.5 Oral tab 1 tab 2 times per day [Active]; df1 - PMHx: 05:48 Diabetes - IDDM; Dialysis; Hypertension; wg - PSHx: 06:17 right AKA; df1 06:23 Coronary Angioplasty; triple bypass; df1 - Immunization history:: Adult Immunizations up to date, Client reports receiving the 2nd dose of the Covid vaccine, Last tetanus immunization: up to date Pneumococcal vaccine is up to date, Flu vaccine is not up to date. - Social history:: Smoking status: Patient denies any tobacco usage or history of. - Family history:: not pertinent. Screenin:17 Abuse screen: Denies threats or abuse. Nutritional screening: No deficits noted. df1 Tuberculosis screening: No symptoms or risk factors identified. Fall Risk No fall in past 12 months (0 pts). Secondary diagnosis (15 points) impaired mobility, IV access (20 points). Ambulatory Aid- None/Bed Rest/Nurse Assist (0 pts). Gait- Impaired (20 pts.). Mental Status- Oriented to own ability (0 pts). Total Lorenzo Fall Scale indicates High Risk Score (45 or more points). Side Rails Up X 2 Family Present and informed to notify staff if the need to leave the bedside. Assessment: 06:28 General: Appears uncomfortable, Behavior is calm, cooperative, Smells of Reports chills df1 for 1-2 days, feeling ill for 1-2 days. Pain: Complains of pain in pelvis Pain radiates to Pt states RLQ pain that radiates to groin area 10/10. Neuro: No deficits noted. Cardiovascular: No deficits noted. Respiratory: No deficits noted. GI: Bowel sounds present X 4 quads. Reports lower abdominal pain, nausea, vomiting. : Reports inability to void, since yesterday. Difficulty voiding. Pt is dialysis MWF. 1.5 Liters removed yesterday. EENT: No deficits noted. Derm: No deficits noted. Musculoskeletal: Amputation of right leg AKA.. 07:10 Reassessment: receive pt from previous shift, pt awaiting CT results and reassessment. oh 08:27 Reassessment: pt temp 102.5, hr 113, admitting attending made aware. orders pending. oh Vital Signs: 05:44 BP 164 / 92; Pulse 120; Resp 18; Temp 100.4; Pulse Ox 98% on R/A; Weight 90.72 kg; wg Height 6 ft. 1 in. (185.42 cm); Pain 9/10; 06:22 BP 163 / 50; Pulse 113; Resp 28; Pulse Ox 98% on R/A; df1 07:13 BP 136 / 42; Pulse 111; Resp 20; Pulse Ox 95% on R/A; oh 08:16 BP 103 / 48; Pulse 113; Resp 20; Temp 102.5(O); Pulse Ox 99% on 2 lpm NC; oh 05:44 Body Mass Index 26.39 (90.72 kg, 185.42 cm) wg ED Course: 05:33 Patient arrived in ED. bp1 05:48 Triage completed. wg 05:48 Arm band placed on right wrist. wg 06:14 Emily Mariee is Primary Nurse. df1 06:16 Patient has correct armband on for positive identification. Placed in gown. Bed in low df1 position. Call light in reach. Side rails up X 1. Adult w/ patient. 06:16 Basic Metabolic Panel Sent. df1 06:16 Hepatic Function Sent. df1 06:16 Lipase Sent. df1 06:16 Inserted saline lock: 20 gauge in left antecubital area, using aseptic technique. df1 06:18 Kuldeep Zavaleta MD is Attending Physician. kb 06:27 Vallecillo cath inserted, using sterile technique, 16 Fr., by ok. df1 06:53 CT Stone Protocol In Process Unspecified. EDMS 07:09 Primary Nurse role handed off by Emily Mariee oh 07:09 Obed Ahn, RN is Primary Nurse. oh 07:36 David Muro DO is Hospitalizing Provider. ma2 08:28 No provider procedures requiring assistance completed. oh 14:24 Patient admitted, IV remains in place. oh Administered Medications: 06:15 CANCELLED (Pt dialysis. Verbal order for NS 500ml boluss): NS 0.9% 1000 ml IV at 1 df1 bolus Per protocol; 1000 mL bolus 06:15 Drug: morphine 4 mg Route: IVP; Site: left antecubital; df1 06:32 Follow up: Response: Pain is decreased df1 06:15 Drug: Zofran (Ondansetron) 4 mg Route: IVP; Site: left antecubital; df1 06:31 Follow up: Response: Nausea is decreased df1 06:27 Drug: NS 0.9% 500 ml Route: IV; Rate: bolus; Site: left antecubital; df1 07:47 Drug: Rocephin (cefTRIAXone) 1 grams Route: IV; Rate: calculated rate; Site: left oh antecubital; 07:54 Drug: Acetaminophen 1000 mg Route: PO; oh 08:42 Follow up: Response: No adverse reaction oh Outcome: 07:36 Decision to Hospitalize by Provider. ma2 08:28 Admitted to ER Hold. [facility] for [facility] documentation. oh 08:28 Condition: unchanged 14:24 Patient left the ED. oh Signatures: Dispatcher [employer] EDMS Zahida Parker, PAVING PLANT OPERATOR-C PAVING PLANT OPERATOR-Kuldeep Reynolds MD MD ma2 Beatriz Zaman Liam, RN wg Furlich, Dawn df1 Obed Ahn RN RN oh
--- NOTE | 2021-03-08 07:36 | EDPHYS ---
Physician Documentation [facility] Name: Homer Bradshaw Age: 61 yrs Sex: Male : 1960 Arrival Date: 03/08/2021 Time: 05:33 Bed 13 Private MD: ED Physician Kuldeep Zavaleta HPI: 03/08 07:30 This 61 yrs old Male presents to ER via Wheelchair with complaints of Urinary ma2 Retention. 07:30 The patient presents with abdominal pain. Onset: The symptoms/episode began/occurred ma2 gradually, 1 day(s) ago. Associated signs and symptoms: Pertinent negatives: chest pain, diarrhea, fever, testicular pain, vomiting, vomiting blood. Severity of pain: At its worst the pain was. The patient has not experienced similar symptoms in the past. Historical: - Allergies: 05:48 Vancomycin; wg - Home Meds: 05:51 aspirin 81 mg Oral TbEC 1 tab once daily [Active]; atorvastatin 40 mg Oral tab 1 tab wg once daily [Active]; ferrous sulfate 325 mg (65 mg iron) Oral tab [Active]; hydrocodone-acetaminophen 7.5-325 mg Oral tab 1 tab every 6 hours [Active]; Insulin: Novolog Sub-Q [Active]; insulin-Levemir 20 unit daily [Active]; Vitamin D Oral 6[address]60 unit every sunday [Active]; Vitamin B-12 Oral [Active]; Prevacid Oral [Active]; 06:17 metoprolol tartrate 12.5 Oral tab 1 tab 2 times per day [Active]; df1 - PMHx: 05:48 Diabetes - IDDM; Dialysis; Hypertension; wg - PSHx: 06:17 right AKA; df1 06:23 Coronary Angioplasty; triple bypass; df1 - Immunization history:: Adult Immunizations up to date, Client reports receiving the 2nd dose of the Covid vaccine, Last tetanus immunization: up to date Pneumococcal vaccine is up to date, Flu vaccine is not up to date. - Social history:: Smoking status: Patient denies any tobacco usage or history of. - Family history:: not pertinent. ROS: 07:30 Eyes: Negative for injury, pain, redness, and discharge. ma2 07:30 All other systems are negative. Exam: 07:30 Constitutional: This is a well developed, well nourished patient who is awake, alert, ma2 and in no acute distress. ENT: Nares patent. No nasal discharge, no septal abnormalities noted. Tympanic membranes are normal and external auditory canals are clear. Oropharynx with no redness, swelling, or masses, exudates, or evidence of obstruction, uvula midline. Mucous membranes moist. Neck: Trachea midline, no thyromegaly or masses palpated, and no cervical lymphadenopathy. Supple, full range of motion without nuchal rigidity, or vertebral point tenderness. No Meningismus. Chest/axilla: Normal chest wall appearance and motion. Nontender with no deformity. No lesions are appreciated. Cardiovascular: Regular rate and rhythm with a normal S1 and S2. No gallops, murmurs, or rubs. Normal PMI, no JVD. No pulse deficits. Respiratory: Lungs have equal breath sounds bilaterally, clear to auscultation and percussion. No rales, rhonchi or wheezes noted. No increased work of breathing, no retractions or nasal flaring. Abdomen/GI: Soft, non-tender, with normal bowel sounds. No distension or tympany. No guarding or rebound. No evidence of tenderness throughout. Back: No spinal tenderness. No costovertebral tenderness. Full range of motion. MS/ Extremity: Pulses equal, no cyanosis. Neurovascular intact. Full, normal range of motion. Neuro: Awake and alert, GCS 15, oriented to person, place, time, and situation. Cranial nerves II-XII grossly intact. Motor strength 5/5 in all extremities. Sensory grossly intact. Cerebellar exam normal. Normal gait. Vital Signs: 05:44 BP 164 / 92; Pulse 120; Resp 18; Temp 100.4; Pulse Ox 98% on R/A; Weight 90.72 kg; wg Height 6 ft. 1 in. (185.42 cm); Pain 9/10; 06:22 BP 163 / 50; Pulse 113; Resp 28; Pulse Ox 98% on R/A; df1 07:13 BP 136 / 42; Pulse 111; Resp 20; Pulse Ox 95% on R/A; oh 08:16 BP 103 / 48; Pulse 113; Resp 20; Temp 102.5(O); Pulse Ox 99% on 2 lpm NC; oh 05:44 Body Mass Index 26.39 (90.72 kg, 185.42 cm) wg MDM: 07:24 Patient medically screened. [facility] 07:30 Differential diagnosis: diverticulitis, gastritis, Irritable bowel syndrome, ma2 Prostatitis, Pyelonephritis, Testicular Torsion. 07:34 Data reviewed: vital signs, nurses notes. Counseling: I had a detailed discussion with [facility] the patient and/or guardian regarding: the historical points, exam findings, and any diagnostic results supporting the discharge/admit diagnosis, the presence of at least one elevated blood pressure reading (>120/80) during this emergency department visit, the need for outpatient follow up. 07:34 Response to treatment: the patient's symptoms have markedly improved after treatment. [facility] 07:34 Admission orders: after a detailed discussion of the patient's condition and case, the [facility] admit orders are written by me. 07:36 ED course: discussed with maryana. [facility] 03/08 05:38 Order name: Basic Metabolic Panel; Complete Time: 07:24 [facility] 03/08 05:38 Order name: CBC with Diff [facility] 03/08 05:38 Order name: Hepatic Function; Complete Time: 07:24 [facility] 03/08 05:38 Order name: Lipase; Complete Time: 07:24 [facility] 03/08 06:20 Order name: Urine Dipstick-Ancillary; Complete Time: 07:24 [facility] 03/08 06:25 Order name: UA MICROSCOPIC; Complete Time: 07:24 df 03/08 06:25 Order name: Urine Culture [facility] 03/08 08:24 Order name: CBC Smear Scan [facility] 03/08 10:22 Order name: T4 Free [facility] 03/08 10:22 Order name: Thyroid Stimulating Hormone [facility] 03/08 10:33 Order name: Lipid Profile [facility] 03/08 10:40 Order name: Hemoglobin A1c [facility] 03/08 11:53 Order name: COVID-19 : Document "Date of Symptom Onset" if Symptomatic. 03/08 12:26 Order name: CORONAVIRUS [facility] 03/08 05:38 Order name: IV Saline Lock; Complete Time: 06:16 [facility] 03/08 05:38 Order name: Labs collected and sent; Complete Time: 06:16 [facility] 03/08 05:38 Order name: Urine Dipstick-Ancillary (obtain specimen); Complete Time: 06:24 [facility] 03/08 05:44 Order name: CT Stone Protocol; Complete Time: 07:24 ma2 03/08 06:27 Order name: Abraham; Complete Time: 06:27 df1 03/08 13:17 Order name: SARS-COV-2 RT PCR EDMS Administered Medications: 06:15 CANCELLED (Pt dialysis. Verbal order for NS 500ml boluss): NS 0.9% 1000 ml IV at 1 df1 bolus Per protocol; 1000 mL bolus 06:15 Drug: morphine 4 mg Route: IVP; Site: left antecubital; df1 06:32 Follow up: Response: Pain is decreased df1 06:15 Drug: Zofran (Ondansetron) 4 mg Route: IVP; Site: left antecubital; df1 06:31 Follow up: Response: Nausea is decreased df1 06:27 Drug: NS 0.9% 500 ml Route: IV; Rate: bolus; Site: left antecubital; df1 07:47 Drug: Rocephin (cefTRIAXone) 1 grams Route: IV; Rate: calculated rate; Site: left oh antecubital; 07:54 Drug: Acetaminophen 1000 mg Route: PO; oh 08:42 Follow up: Response: No adverse reaction oh Disposition Summary: 03/08/21 07:36 Hospitalization Ordered Hospitalization Status: Inpatient Admission ma2 Provider: David Muro ma Condition: Stable ma2 Problem: new ma2 Symptoms: are unchanged ma2 Bed/Room Type: Standard ms2 Location: Telemetry/MedSurg (Inpatient)(03/08/21 13:13) bd Room Assignment: 218(03/08/21 13:13) bd Diagnosis - Acute cystitis - pyelonephritis ma2 - Severe sepsis without septic shock ma2 Forms: - Medication Reconciliation Form ma2 - SBAR form ma2 Signatures: Dispatcher [employer] EDMS Mariana Vinson bd Sowmya Nath RN RN iw Kuldeep Zavaleta MD MD ma2 Osbaldo Blanco RN wg Furlich, Dawn df1 Obed Ahn RN RN oh Corrections: (The following items were deleted from the chart) 06:15 05:45 NS 0.9% 1000 ml IV at 1 bolus Per protocol; 1000 mL bolus ordered. ma2 df1 12:41 07:36 Telemetry/MedSurg (Inpatient) ma2 iw 12:41 07:36 ma2 iw : 12:41 [facility] ER HOLD iw bd 12:41 ERHOLD- iw bd
[2021-03-08] MEDS ORDERED: ACETAMINOPHEN 500 MG TAB ONE (08:03)
[2021-03-08] MEDS ORDERED: CEFTRIAXONE 1000 MG/VIAL ONE ×2 (08:03→20:39)
[2021-03-08 08:24] LABS: Platelet Estimate ADEQ; White Blood Cell Scan OK (OK)
[2021-03-08 08:43] LABS: Anisocytosis SLIGHT; Blood Morphology Comment NOTED (NOT SEEN); Macrocytosis SLIGHT
[2021-03-08 09:31] VITALS: BMI 27.7
--- NOTE | 2021-03-08 09:50 | P.HP ---
Certification for Inpatient Patient admitted to: Inpatient With expected LOS: >2 Midnights Patient will require the following post-hospital care: None Practitioner: I am a practitioner with admitting privileges, knowledge of patient current condition, hospital course, and medical plan of care. Services: Services provided to patient in accordance with Admission requirements found in Title 42 Section 412.3 of the Code of Federal Regulations Patient History Date of Service: 03/08/21 Reason for admission: Urinary retension History of Present Illness: Patient is a 61-year-old male with a past medical history significant for DM 2, ESRD, hypertension, right AKA, CAD who presents with complaint of urinary retention. Patient reported that he had an angiogram done on his right leg in preparation for a kidney transplant 5 days ago. Patient reported that he started having trouble urinating a day after. Patient reports suprapubic\right flank pain rated as 5/10 and described as throbbing in quality. Patient also reports associated signs and symptoms of chills, headache, fever, nausea, and vomiting. Patient denies any other signs and symptoms. Symptoms are aggravated or relieved by nothing. Patient decided to present to the hospital for medical evaluation. Allergies No Known Drug Allergies Allergy (Verified 04/01/15 04:42) Unknown Home medications list reviewed: Yes Home Medications: Aspirin [Aspirin EC 81 MG] 81 mg PO DAILY 01/18/15 Insulin Lispro [Humalog] 100 unit SQ SEECOM 04/01/15 Atorvastatin Calcium 40 mg PO DAILY 03/08/21 Docusate [Colace Cap*] 1 cap PO DAILY 03/08/21 Insulin Detemir [Levemir] 45 units SQ DAILY 03/08/21 Lansoprazole [Prevacid] 15 mg PO DAILY 03/08/21 Metoprolol Tartrate 12.5 mg PO BID 03/08/21 Polyethylene Glycol 3350 [Miralax] 17 gm PO DAILY 03/08/21 Vit B Comp/C/FA/Iron Sulf/Robert [Stress Formula with Iron Tab] 1 tab PO DAILY 03/08/21 Vitamin D [Drisdol*] 1 cap PO M,W,F 03/08/21 - Past Medical/Surgical History Diabetic: Yes -: Diabetes -: Hyperlipidemia -: Hypertension -: Angina -: Lymphedema -: I&D on right big toe -: Left FEMPOP - Family History Mother -: Diabetes Father -: Cancer - Social History Smoking Status: Former smoker Alcohol use: No CD- Drugs: No Caffeine use: Yes Review of Systems General: Fever, Chills, Malaise Eyes: Unremarkable ENT: Unremarkable Respiratory: Unremarkable Cardiovascular: Unremarkable Gastrointestinal: Nausea, Vomiting, Abdominal Pain Genitourinary: Retention Musculoskeletal: Unremarkable Integumentary: Unremarkable Neurological: Unremarkable Lymphatics: Unremarkable Physical Examination - Vital Signs Temperature: 98.7 F Blood Pressure: 92/51 Pulse: 90 Respirations: 19 Pulse Ox (%): 99 - Physical Exam General: Alert, In no apparent distress, Oriented x3 HEENT: Atraumatic, PERRLA, Mucous membr. moist/pink, EOMI, Sclerae nonicteric Neck: Supple, 2+ carotid pulse no bruit, No LAD, Without JVD or thyroid abnormality Respiratory: Clear to auscultation bilaterally, Normal air movement Cardiovascular: Regular rate/rhythm, Normal S1 S2 Capillary refill: <2 Seconds Gastrointestinal: Normal bowel sounds, No tenderness Musculoskeletal: No tenderness Integumentary: No rashes Neurological: Normal gait, Normal speech, Normal strength at 5/5 x4 extr, Normal tone, Normal affect Lymphatics: No axilla or inguinal lymphadenopathy External genitalia: Deferred Rectal: Deferred - Studies Laboratory Data (last 24 hrs) 03/08/21 06:00: WBC 15.80 H, Hgb 10.1 L, Hct 29.9 L, Plt Count 348 03/08/21 06:00: Sodium 131 L, Potassium 4.9, BUN 40 H, Creatinine 7.27 H*, Glucose 334 H, Total Bilirubin 0.5, AST 11 L, ALT 19, Alkaline Phosphatase 99, Lipase 126 Assessment and Plan - Plan --Pyelonephritis\UTI POA. Patient had a Rosario catheter inserted in the ER due to urinary retention. Continue antibiotics. --Leukocytosis. Blood cultures pending. Continue antibiotics. --Sepsis POA. Blood cultures pending. Continue antibiotics. --DM2. Poorly controlled. BS monitoring with sliding scale insulin, premeal insulin and Lantus. --Right AKA. Continue supportive care. --BPH. Continue Flomax. --HLD. Continue statin. --ESRD. Nephrology consulted. Further management per editorial clerk. --Hypertension. Poorly controlled. Continue home medications and labetalol as needed. --GERD. Continue home medication. --History of CAD and CABG.. Continue aspirin and statin. --DVT prophylaxis with heparin subQ I have had discussion about advanced directives with the patient during this hospital admission. Addressed code status and goals of care. Spent more than 30 minutes. Case discussed withpatient and nurse. The following document was completed using voice recognition software. This can produce communication spec errors that can at times significantly distort words and phrases. Please interpret any aspect of the note that is nonsensical in light of this fact. Discharge Plan: Home Plan to discharge in: 48 Hours - Advance Directives Does patient have a Living Will: No Does patient have a Durable POA for Healthcare: No - Code Status/Comfort Care Code Status Assessed: Yes Code Status: Full Code Physician Review: Patient Assessed, Agree with Above Assessment and Plan Critical Care: No
[2021-03-08 10:22] LABS: Thyroid Stimulating Hormone 0.874 uIU/mL (0.360-3.740)
[2021-03-08] MEDS ORDERED: GLUCAGON 1 MG/VIAL IM PRN ×3 (10:44→16:58)
[2021-03-08] MEDS ORDERED: BISACODYL E.C. 5 MG TAB PO PRN (10:44)
[2021-03-08] MEDS ORDERED: D50W 25 GM/50 ML SYRINGE IV PRN ×3 (10:44→16:58)
[2021-03-08] MEDS: HYDROCODONE/APAP 5/325 MG TAB PO PRN (13:28)
[2021-03-08] MEDS ORDERED: HYDROCODONE/APAP 10/325 TAB ONE (13:48)
[2021-03-08] MEDS ORDERED: HYDROCODONE/APAP 5/325 MG TAB ONE (13:52)
[2021-03-08] MEDS: GABAPENTIN 300 MG CAP PO SCH (15:13)
[2021-03-08] MEDS: ONDANSETRON 4 MG/2 ML VIAL IV PRN (15:55)
[2021-03-08] MEDS ORDERED: LABETALOL 20 MG/4ML SYRINGE IV PRN (17:20)
[2021-03-08] MEDS: ACETAMINOPHEN 325 MG TABLET PO PRN (17:39)
[2021-03-08] MEDS: TRAMADOL HCL 50 MG TAB PO PRN (17:40)
[2021-03-08] MEDS: INSULIN -REGULAR HUMAN 50 UNIT/0.5 ML ML SQ SCH ×2 (17:52→21:04)
[2021-03-08] MEDS: INSULIN -REGULAR HUMAN 50 UNIT/0.5 ML ML IV SCH ×2 (17:53→21:05)
[2021-03-08] MEDS ORDERED: GABAPENTIN 300 MG PO SCH (18:00)
[2021-03-08] MEDS ORDERED: NA CHLORIDE 0.9% 100 ML ONE (20:39)
--- NOTE | 2021-03-08 20:54 | P.CNS ---
Date of Consult: 03/08/21 Reason for Consult: ESRD Requesting Physician: Anthony Hastings Chief Complaint: Urinary retension History of Present Illness: Patient is a 61-year-old male with a past medical history significant for DM 2, ESRD, hypertension, right AKA, CAD who presents with complaint of urinary retention. Patient reported that he had an angiogram done on his right leg in preparation for a kidney transplant 5 days ago. Patient reported that he started having trouble urinating a day after. Patient reports suprapubic\right flank pain rated as 5/10 and described as throbbing in quality. Patient also reports associated signs and symptoms of chills, headache, fever, nausea, and vomiting. Patient denies any other signs and symptoms. Symptoms are aggravated or relieved by nothing. Patient decided to present to the hospital for medical evaluation. 07:30 This 61 yrs old Male presents to ER via Wheelchair with complaints of Urinary ma2 Retention. 07:30 The patient presents with abdominal pain. Onset: The symptoms/episode began/occurred ma2 gradually, 1 day(s) ago. Associated signs and symptoms: Pertinent negatives: chest pain, diarrhea, fever, testicular pain, vomiting, vomiting blood. Severity of pain: At its worst the pain was. The patient has not experienced similar symptoms in the past. Allergies No Known Drug Allergies Allergy (Verified 04/01/15 04:42) Unknown Home medications list reviewed: Yes Home Medications: Aspirin [Aspirin EC 81 MG] 81 mg PO DAILY 01/18/15 Insulin Lispro [Humalog] 100 unit SQ SEECOM 04/01/15 Atorvastatin Calcium 40 mg PO DAILY 03/08/21 Docusate [Colace Cap*] 1 cap PO DAILY 03/08/21 Insulin Detemir [Levemir] 45 units SQ DAILY 03/08/21 Lansoprazole [Prevacid] 15 mg PO DAILY 03/08/21 Metoprolol Tartrate 12.5 mg PO BID 03/08/21 Polyethylene Glycol 3350 [Miralax] 17 gm PO DAILY 03/08/21 Vit B Comp/C/FA/Iron Sulf/Robert [Stress Formula with Iron Tab] 1 tab PO DAILY 03/08/21 Vitamin D [Drisdol*] 1 cap PO M,W,F 03/08/21 - Past Medical/Surgical History Diabetic: Yes -: Diabetes -: Hyperlipidemia -: Hypertension -: Angina -: Lymphedema -: I&D on right big toe -: Left FEMPOP - Family History Mother Medical History: Diabetes Father Medical History: Cancer - Social History Smoking Status: Never smoker Alcohol use: No CD- Drugs: No Caffeine use: Yes Review of Systems 10-point ROS is otherwise unremarkable General: Weakness, Malaise Gastrointestinal: Nausea, Abdominal Pain Neurological: Weakness Physical Examination Temp Pulse Resp BP Pulse Ox 99.7 F 108 H 17 106/52 L 92 03/08/21 20:00 03/08/21 20:00 03/08/21 20:00 03/08/21 20:00 03/08/21 20:00 General: Cooperative, Acute distress HEENT: Atraumatic Neck: Supple Respiratory: Clear to auscultation bilaterally Cardiovascular: No edema, Regular rate/rhythm Gastrointestinal: Non-distended, Tenderness Musculoskeletal: No clubbing, No contractures Integumentary: No rashes Neurological: Normal speech Laboratory Data (last 24 hrs) 03/08/21 06:00: WBC 15.80 H, Hgb 10.1 L, Hct 29.9 L, Plt Count 348 03/08/21 06:00: Sodium 131 L, Potassium 4.9, BUN 40 H, Creatinine 7.27 H*, Glucose 334 H, Total Bilirubin 0.5, AST 11 L, ALT 19, Alkaline Phosphatase 99, Lipase 126 Imagings Data: EXAM DESCRIPTION: CT - Stone Protocol - 03/08/2021 6:54 am CLINICAL HISTORY: ABD PAIN, urinary retention, right lower quadrant pain radiating to the testicles COMPARISON: Abdomen Pelvis Wo Contrast dated 10/10/2020 TECHNIQUE: Axial 3 mm thick images were obtained without oral or IV contrast. The jlrom-ju-iwoe spans the entirety of the system including uppermost abdomen and lung bases. All CT scans are performed using dose optimization technique as appropriate and may include automated exposure control or mA/KV adjustment according to patient size. FINDINGS: Mild right-sided hydronephrosis and hydroureter present down to the UVJ level. No obstructing or nonobstructing calculi identified. Dense arterial calcifications are present. The attenuation of the fluid within the dilated right collecting system is at least 49 Hounsfield units. This would suggest blood and/or inflammatory debris to be present. No source is evident from this examination. Left-sided hydronephrosis has resolved since the October examination. No suspicious renal masses. Isodense masses and pyelonephritis are not excluded on a stone protocol CT scan. No significant adrenal finding. Urinary bladder is fully contracted around a Rosario catheter. No significant prostate gland finding seen. Imaged portions of the liver, spleen and pancreas show no suspicious findings on non-contrast imaging. No gallbladder or biliary tree abnormality identified. No suspicious bowel findings. Appendix is normal. Contrast material in the colon is presumed to be from outside examination. This could potentially be medication containing bismuth or other hyperdense material. No hernia, mass or bulky lymphadenopathy noted. No free air, free fluid or pneumatosis. Perinephric stranding is present on each kidney similar to comparison. Bony degenerative changes are present similar to comparison. IMPRESSION: Mild right-sided hydronephrosis down to the UVJ level without obstructing calculus identifiable. Urine within the right collecting system is hyperdense which would indicate the presence of blood and/or inflammatory debris. Source full blood is not evident. This could be from a small mass, infection or recently passed stone. Isodense masses and pyelonephritis are not excluded on stone protocol technique. Conclusions/Impression: ESRD Proteinuria -HD TIW Hyponatremia -HD TIW HTN with CKD/ CHF complicated by hypotension -Discontinue Amlodipine & Valsartan -IVF bolus as needed Diastolic CHF, chronic -HD TIW with UF DM II with CKD, Polyneuropathy & Hyperglycemia -Continue Lantus -RISS Anemia in chronic illness -Restart Retacrit CKD MBD -Start Calcitriol and Vitamin D3 Right hydroureter and hydronephrosis to the UVJ Pyelonephritis Sepsis/ Septic shock -Continue Rocephin -Follow up culture -Consider a urology evaluation to evaluate the obstruction Thank you kindly for the consultation. Critical Care: Yes
[2021-03-08] MEDS: CEFTRIAXONE 1 GM/NS 50 ML 1 GM/50 ML BAG IV SCH (21:00)
[2021-03-08] MEDS: ATORVASTATIN 10 MG TAB PO SCH (21:02)
[2021-03-08] MEDS: DOCUSATE NA 100 MG CAP PO SCH (21:04)
[2021-03-08] MEDS: HEPARIN 5000 UNIT/ML 1 ML VIAL SQ SCH (21:04)
[2021-03-09] MEDS: HYDROCODONE/APAP 5/325 MG TAB PO PRN (03:20)
[2021-03-09] MEDS: GABAPENTIN 300 MG CAP PO SCH ×3 (05:14→18:52)
[2021-03-09] MEDS: TRAMADOL HCL 50 MG TAB PO PRN ×2 (05:14→21:38)
[2021-03-09] MEDS: ONDANSETRON 4 MG/2 ML VIAL IV PRN (05:19)
--- NOTE | 2021-03-09 06:09 | P.PN ---
Subjective Date of Service: 03/09/21 Chief Complaint: Urinary retension Physical Examination - Vital Signs Temperature: 98.0 F Blood Pressure: 122/48 Pulse: 85 Respirations: 18 Pulse Ox (%): 94 - Studies Laboratory Data (last 24 hrs) 03/08/21 06:00: WBC 15.80 H, Hgb 10.1 L, Hct 29.9 L, Plt Count 348 03/08/21 06:00: Sodium 131 L, Potassium 4.9, BUN 40 H, Creatinine 7.27 H*, Glucose 334 H, Total Bilirubin 0.5, AST 11 L, ALT 19, Alkaline Phosphatase 99, Lipase 126 Assessment & Plan Physician Review: Patient Assessed, Agree with Above Assessment and Plan
[2021-03-09 06:21] LABS: Absolute Lymphocytes (CBC) 0.7 K/uL (0.7-4.9); Basophils % 0.7 % (0-1.3); Hematocrit 29.3 % (39.6-49.0); Lymphocytes % 3.7 % (15.3-44.8); MPV 6.1 fL (7.6-11.3); RBC Red Blood Cell Count 2.93 M/uL (4.33-5.43)
[2021-03-09 07:08] LABS: Bilirubin Total 0.5 mg/dL (0.2-1.0); Magnesium 1.9 mg/dL (1.8-2.4); Phosphorus 5.7 mg/dL (2.5-4.9); Protein, Total 7.9 g/dL (6.4-8.2); Uric Acid 6.3 mg/dL (3.5-7.2)
[2021-03-09] MEDS: INSULIN -REGULAR HUMAN 50 UNIT/0.5 ML ML IV SCH (07:30)
[2021-03-09] MEDS: VITAMIN D 5,000 UNIT CAP PO SCH (08:25)
[2021-03-09] MEDS: DOCUSATE NA 100 MG CAP PO SCH ×2 (08:25→21:37)
[2021-03-09] MEDS: ASPIRIN EC 81 MG TAB PO SCH (08:25)
[2021-03-09] MEDS: FUROSEMIDE 40 MG TABLET PO SCH (08:26)
[2021-03-09] MEDS: TAMSULOSIN 0.4 MG SR CAP PO SCH (08:26)
[2021-03-09] MEDS: CALCITROL 0.25 MCG CAP PO SCH (08:26)
[2021-03-09] MEDS: HEPARIN 5000 UNIT/ML 1 ML VIAL SQ SCH ×2 (08:28→21:37)
[2021-03-09] MEDS: INSULIN -REGULAR HUMAN 50 UNIT/0.5 ML ML SQ SCH ×6 (08:33→21:40)
[2021-03-09] MEDS: INSULIN GLARGINE 100 UNITS/ML SQ SCH (08:39)
[2021-03-09] MEDS ORDERED: AMLODIPINE 5 MG TAB PO SCH (09:00)
[2021-03-09] MEDS ORDERED: FERROUS SULFATE 325 MG TAB PO SCH (09:00)
[2021-03-09] MEDS ORDERED: EPOETIN ALFA-EPBX 10,000 UNIT/ML VIAL SQ SCH (09:00)
[2021-03-09] MEDS ORDERED: VALSARTAN 160 MG TAB PO SCH (09:00)
[2021-03-09] MEDS ORDERED: VALSARTAN 320 MG PO SCH (09:00)
[2021-03-09] MEDS: CEFTRIAXONE 1 GM/NS 50 ML 1 GM/50 ML BAG IV SCH ×2 (10:25→21:37)
--- NOTE | 2021-03-09 16:40 | P.PN ---
Subjective Date of Service: 03/09/21 Chief Complaint: Urinary retension Subjective: Other (Patient states she feels a little bit better this morning. Nurse staff reports intermittent sleep overnight. He reported some back/flank pain. He is arousable but difficult to do so. He was in a deep sleep, eyes closing we will try to talk with him. Otherwise states he is feeling better) Review of Systems 10-point ROS is otherwise unremarkable Physical Examination - Vital Signs Temperature: 98.7 F Blood Pressure: 189/82 Pulse: 114 Respirations: 18 Pulse Ox (%): 91 Assessment & Plan Physician Review Additional Text: Physical exam GEN: Sleepy, arousable HEENT: Normal conjunctiva, sclera anicteric CV: Regular rate and rhythm, no edema Pulm: Nonlabored respiration on room air ABD: Soft, nontender, nondistended Integumentary: No rashes Neuro: Normal speech, normal affect while awake, moves all extremities Problem list Acute pyelonephritis Bacteremia DM2, insulin dependence ESRD on HD PAD, s.p AKA Hyperlipidemia GERD CAD s/p CABG vallecillo inserted in ER due to reported urinary retention Discussed case with nephrology, states blood culture obtained at dialysis center reveals gram-positive bacteria growing, will have results faxed over Follow-up blood cultures obtained in the ER Follow-up urine cultures Continue antibiotics Patient very difficult to wake this morning, received Raymond and tramadol few hours prior, suspect he was overmedicated. glc was ok continue insulin, sliding scale Continue home Flomax, statin, aspirin Dispo: anticipate dc home in ~2-3 days.. Will review outside culture results, may need echo Time Spent Managing Pts Care (In Minutes): 35
[2021-03-09] MEDS ORDERED: EPOETIN 4,000 UNIT/ML VIAL SQ SCH (17:00)
--- NOTE | 2021-03-09 21:07 | P.PN ---
Date of Service: 03/09/21 Vital Signs Temp Pulse Resp BP Pulse Ox 98.7 F 114 H 18 189/82 H 91 03/09/21 16:40 03/09/21 16:40 03/09/21 16:40 03/09/21 16:40 03/09/21 16:40 Medications Acetaminophen (Acetaminophen 325 Mg Tablet) 650 mg PO Q4H PRN PRN Reason: TEMP > 100' F Last Admin: 03/08/21 17:39 Dose: 650 mg Documented by: Alprazolam (Alprazolam 0.25 Mg Tablet) 0.25 mg PO BEDTIME PRN PRN Reason: ANXIETY Aspirin (Aspirin Ec 81 Mg Tab) 81 mg PO DAILY [facility] Last Admin: 03/09/21 08:25 Dose: 81 mg Documented by: Atorvastatin Calcium (Atorvastatin 10 Mg Tab) 10 mg PO BEDTIME [facility] Last Admin: 03/08/21 21:02 Dose: 10 mg Documented by: Bisacodyl (Bisacodyl E.C. 5 Mg Tab) 10 mg PO DAILYPRN PRN PRN Reason: CONSTIPATION Calcitriol (Calcitrol 0.25 Mcg Cap) 0.5 mcg PO DAILY [facility] Last Admin: 03/09/21 08:26 Dose: 0.5 mcg Documented by: Cholecalciferol (Vitamin D 5,000 Unit Cap) 5,000 unit PO DAILY [facility] Last Admin: 03/09/21 08:25 Dose: 5,000 unit Documented by: Dextrose (D50w 25 Gm/50 Ml Syringe) 12.5 gm IV PRN PRN PRN Reason: HYPOGLYCEMIA Docusate Sodium (Docusate Na 100 Mg Cap) 100 mg PO BID [facility] Last Admin: 03/09/21 08:25 Dose: 100 mg Documented by: Epoetin Tae (Epoetin 4,000 Unit/Ml Vial) 4,000 unit SQ M,W,F [facility] Last Admin: 03/09/21 18:51 Dose: 4,000 unit Documented by: Furosemide (Furosemide 40 Mg Tablet) 40 mg PO DAILY [facility] Last Admin: 03/09/21 08:26 Dose: 40 mg Documented by: Gabapentin (Gabapentin 300 Mg Cap) 300 mg PO BID 6AM 6PM [facility] Last Admin: 03/09/21 18:00 Dose: Not Given Documented by: Glucagon (Glucagon 1 Mg/Vial) 1 mg IM 1X PRN PRN Reason: HYPOGLYCEMIA Heparin Sodium (Porcine) (Heparin 5000 Unit/Ml 1 Ml Vial) 5,000 unit SQ Q12HR [facility] Last Admin: 03/09/21 08:28 Dose: 5,000 unit Documented by: Ceftriaxone Sodium/Sodium Chloride (Rocephin 1gm/50 Ml Ivpb) 1 gm in 50 mls @ 100 mls/hr IV Q12HR [facility]; Protocol Last Admin: 03/09/21 10:25 Dose: 50 mls Documented by: Insulin Glargine (Insulin Glargine 100 Units/Ml) 24 units SQ DAILY [facility] Last Admin: 03/09/21 08:39 Dose: 24 units Documented by: Insulin Human Regular (Insulin -Regular Human 50 Unit/0.5 Ml Ml) 0 unit SQ ACHS [facility]; Protocol Last Admin: 03/09/21 16:30 Dose: 6 unit Documented by: Insulin Human Regular (Insulin -Regular Human 50 Unit/0.5 Ml Ml) 5 unit SQ AC [facility] Last Admin: 03/09/21 18:50 Dose: 5 unit Documented by: Labetalol HCl (Labetalol 20 Mg/4ml Syringe) 10 mg IV Q6H PRN PRN Reason: SBP>160 Ondansetron HCl (Ondansetron 4 Mg/2 Ml Vial) 4 mg IV Q6HP PRN PRN Reason: NAUSEA / VOMITING Last Admin: 03/09/21 05:19 Dose: 4 mg Documented by: Sodium Chloride (Flush Normal Saline 10 Ml) 10 ml IV BID [facility] Last Admin: 03/09/21 08:39 Dose: 10 ml Documented by: Tamsulosin HCl (Tamsulosin 0.4 Mg Sr Cap) 0.4 mg PO DAILY [facility] Last Admin: 03/09/21 08:26 Dose: 0.4 mg Documented by: Tramadol HCl (Tramadol Hcl 50 Mg Tab) 50 mg PO Q6H PRN PRN Reason: Pain scale 2-4 (Mild) Last Admin: 03/09/21 05:14 Dose: 50 mg Documented by: Assessment/ Plan: Nephrology Progress Note Feeling better today but still with intermittent pain between pain meds. No chest pain or dyspnea No acute events overnight Vitals, medications blood work and imaging reviewed in the chart General: Cooperative, Acute distress HEENT: Atraumatic Neck: Supple Respiratory: Clear to auscultation bilaterally Cardiovascular: No edema, Regular rate/rhythm Gastrointestinal: Non-distended, Tenderness Musculoskeletal: No clubbing, No contractures Integumentary: No rashes Neurological: Normal speech Laboratory Data (last 24 hrs) 03/08/21 06:00: WBC 15.80 H, Hgb 10.1 L, Hct 29.9 L, Plt Count 348 03/08/21 06:00: Sodium 131 L, Potassium 4.9, BUN 40 H, Creatinine 7.27 H*, Glucose 334 H, Total Bilirubin 0.5, AST 11 L, ALT 19, Alkaline Phosphatase 99, L ipase 126 Imagings Data: EXAM DESCRIPTION: CT - Stone Protocol - 03/08/2021 6:54 am CLINICAL HISTORY: ABD PAIN, urinary retention, right lower quadrant pain radiating to the testicles COMPARISON: Abdomen Pelvis Wo Contrast dated 10/10/2020 TECHNIQUE: Axial 3 mm thick images were obtained without oral or IV contrast. The labli-nu-pgae spans the entirety of the system including uppermost abdomen and lung bases. All CT scans are performed using dose optimization technique as appropriate and may include automated exposure control or mA/KV adjustment according to patient size. FINDINGS: Mild right-sided hydronephrosis and hydroureter present down to the UVJ level. No obstructing or nonobstructing calculi identified. Dense arterial calcifications are present. The attenuation of the fluid within the dilated right collecting system is at least 49 Hounsfield units. This would suggest blood and/or inflammatory debris to be present. No source is evident from this e xamination. Left-sided hydronephrosis has resolved since the October examination. No suspicious renal masses. Isodense masses and pyelonephritis are not excluded on a stone protocol CT scan. No significant adrenal finding. Urinary bladder is fully contracted around a Rosario catheter. No significant prostate gland finding seen. Imaged portions of the liver, spleen and pancreas show no suspicious findings on non-contrast imaging. No gallbladder or biliary tree abnormality identified. No suspicious bowel findings. Appendix is normal. Contrast material in the colon is presumed to be from outside examination. This could potentially be medication containing bismuth or other hyperdense material. No hernia, mass or bulky lymphadenopathy noted. No free air, free fluid or pneumatosis. Perinephric stranding is present on each kidney similar to comparison. Bony degenerative changes are present similar to comparison. IMPRESSION: Mild right-sided hydronephrosis down to the UVJ level without obstructing calculus identifiable. Urine within the right collecting system is hyperdense which would indicate the presence of blood and/or inflammatory debris. Source full blood is not evident. This could be from a small mass, infection or recently passed stone. Isodense masses and pyelonephritis are not excluded on stone protocol technique. Conclusions/Impression: ESRD Proteinuria -HD TIW Hyponatremia -HD TIW HTN with CKD/ CHF complicated by hypotension -Start Metoprolol BID Diastolic CHF, chronic -HD TIW with UF DM II with CKD, Polyneuropathy & Hyperglycemia -Continue Lantus -RISS Anemia in chronic illness -Continue Retacrit CKD MBD -Continue Calcitriol and Vitamin D3 Right hydroureter and hydronephrosis to the UVJ Pyelonephritis Sepsis/ Septic shock -Continue Rocephin -Follow up culture -Continue Flomax -Repeat Renal US in the morning Case reviewed with Dr. Hastings
[2021-03-09] MEDS ORDERED: NA CHLORIDE 0.9% 1,000 ML IV PRN (21:08)
[2021-03-09] MEDS ORDERED: MANNITOL 25% 12.5 GM/50 ML VIAL IV PRN (21:08)
[2021-03-09] MEDS: ALPRAZOLAM 0.25 MG TABLET PO PRN (21:37)
[2021-03-09] MEDS: ATORVASTATIN 10 MG TAB PO SCH (21:37)
[2021-03-09] MEDS: METOPROLOL TAR 25 MG TAB PO SCH (21:38)
[2021-03-09] MEDS ORDERED: METOPROLOL TAR 25 MG TAB ONE (21:56)
[2021-03-09] MEDS ORDERED: ALBUMIN HUMAN 25% 50 ML IV SCH (22:00)
[2021-03-09 23:16] LABS: Urine Appearance TURBID (Clear); Urine Bilirubin NEGATIVE (Negative); Urine Blood 3+ (Negative); Urine Color YELLOW (Yellow); Urine Glucose 1+ (Negative); Urine Protein 3+ (Negative); Urine Urobilinogen 0.2 mg/dL (0.2-1.0); Urine pH 5.5 (5.0-7.0)
[2021-03-09 23:31] LABS: Urine Microscopic Reflex ORDER UMIC
[2021-03-10 00:52] LABS: Urine Bacteria 20-50 /HPF (NONE SEEN); Urine Coarse Granular Casts >10 /LPF (NONE SEEN); Urine Sperm PRESENT (NONE SEEN)
[2021-03-10] MEDS: GABAPENTIN 300 MG CAP PO SCH (05:12)
[2021-03-10 06:18] LABS: Absolute Lymphocytes (CBC) 0.9 K/uL (0.7-4.9); Basophils % 0.5 % (0-1.3); Hematocrit 26.2 % (39.6-49.0); Lymphocytes % 5.4 % (15.3-44.8); MPV 6.5 fL (7.6-11.3); RBC Red Blood Cell Count 2.63 M/uL (4.33-5.43)
--- NOTE | 2021-03-10 06:25 | P.PN ---
Subjective Date of Service: 03/10/21 Chief Complaint: Urinary retension Subjective: Improving (Overall states he is feeling better, reports some slight tremors, thinks is secondary to gabapentin. He has not been taking gabapentin for a while, will discontinue.) Review of Systems 10-point ROS is otherwise unremarkable Physical Examination - Vital Signs Temperature: 98 F Blood Pressure: 138/63 Pulse: 89 Respirations: 18 Pulse Ox (%): 93 Assessment & Plan Physician Review Additional Text: Physical exam GEN: AAOx3, NAD HEENT: Normal conjunctiva, sclera anicteric CV: Regular rate and rhythm, no edema Pulm: Nonlabored respiration on room air ABD: Soft, nontender, nondistended Integumentary: No rashes Neuro: Normal speech, normal affect Problem list Acute pyelonephritis Bacteremia DM2, insulin dependence ESRD on HD PAD, s.p AKA Hyperlipidemia GERD CAD s/p CABG b/l inguinal intertrigo vallecillo inserted in ER due to reported urinary retention, can likely dc later today/tomorrow if continues to improve Discussed case with nephrology, states blood culture obtained at dialysis center reveals gram-positive bacteria growing, will have results faxed over Follow-up blood cultures obtained in the ER - positive Follow-up urine cultures Continue antibiotics, ID consulted gram positive bacteremia, will obtain echocardiogram to eval for vegetation continue insulin, sliding scale Continue home Flomax, statin, aspirin Nystatin powder for inguinal intertrigo Dispo: anticipate dc home in ~2-3 days.. Will review outside culture results Time Spent Managing Pts Care (In Minutes): 35
[2021-03-10] MEDS: INSULIN -REGULAR HUMAN 50 UNIT/0.5 ML ML SQ SCH ×7 (07:30→20:30)
[2021-03-10 08:14] LABS: Albumin 2.7 g/dL (3.4-5.0); Bilirubin Total 0.4 mg/dL (0.2-1.0); Phosphorus 6.4 mg/dL (2.5-4.9); Potassium 4.6 mmol/L (3.5-5.1); Protein, Total 7.5 g/dL (6.4-8.2)
--- NOTE | 2021-03-10 08:14 | RAD REPORT ---
EXAM DESCRIPTION: US - Renal Ultrasound-Complete - 03/10/2021 6:28 am CLINICAL HISTORY: Right abd pain. Right hydronephrosis/ hydroureter COMPARISON: Stone Protocol dated 03/08/2021 FINDINGS: Both kidneys are normal in size, shape and echotexture. The right kidney measures 12.6. Mild right-sided hydronephrosis. No mass or perinephric fluid. The left kidney measures 10.4. No hydronephrosis, focal mass or perinephric fluid. The bladder is decompressed via Rosario catheter. IMPRESSION: Mild right-sided hydronephrosis. The exam is otherwise unremarkable.
[2021-03-10] MEDS: ASPIRIN EC 81 MG TAB PO SCH (08:35)
[2021-03-10] MEDS: INSULIN GLARGINE 100 UNITS/ML SQ SCH (08:35)
[2021-03-10] MEDS: CALCITROL 0.25 MCG CAP PO SCH (08:35)
[2021-03-10] MEDS: DOCUSATE NA 100 MG CAP PO SCH ×2 (08:36→20:41)
[2021-03-10] MEDS: FUROSEMIDE 40 MG TABLET PO SCH (08:36)
[2021-03-10] MEDS: TAMSULOSIN 0.4 MG SR CAP PO SCH (08:37)
[2021-03-10] MEDS: METOPROLOL TAR 25 MG TAB PO SCH ×2 (08:37→16:34)
[2021-03-10] MEDS: HEPARIN 5000 UNIT/ML 1 ML VIAL SQ SCH ×2 (08:37→20:29)
[2021-03-10] MEDS: CEFTRIAXONE 1 GM/NS 50 ML 1 GM/50 ML BAG IV SCH ×2 (08:38→20:41)
--- NOTE | 2021-03-10 12:21 | P.CNS ---
Date of Consult: 03/10/21 Chief Complaint: Urinary retension History of Present Illness: Patient is a 61-year-old male with a past medical history of diabetes type 2, ESRD on HD plan [facility], hypertension, right AKA, CAD status post triple bypass who presented to the emergency department due to complaints of urinary retention and urinary frequency. Patient reports a had an angiogram dominant is right leg in preparation for acceptance on to a kidney transfer list about 5 days ago. Patient states that he started experiencing trouble urinating about a day later. Patient also reports 8 over and off color to his urine. Associated symptoms include fever, chills, suprapubic/right flank pain rated as 5/10, and at nausea and vomiting. CT abdomen and pelvis showed mild right hydronephrosis. Blood in urine cultures growing non beta hemolytic strep, patient empirically placed on Rocephin. Patient currently denies nausea, vomiting, diarrhea, shortness of breath. Allergies No Known Drug Allergies Allergy (Verified 04/01/15 04:42) Unknown Home Medications: Aspirin [Aspirin EC 81 MG] 81 mg PO DAILY 01/18/15 Insulin Lispro [Humalog] 100 unit SQ SEECOM 04/01/15 Atorvastatin Calcium 40 mg PO DAILY 03/08/21 Docusate [Colace Cap*] 1 cap PO DAILY 03/08/21 Insulin Detemir [Levemir] 45 units SQ DAILY 03/08/21 Lansoprazole [Prevacid] 15 mg PO DAILY 03/08/21 Metoprolol Tartrate 12.5 mg PO BID 03/08/21 Polyethylene Glycol 3350 [Miralax] 17 gm PO DAILY 03/08/21 Vit B Comp/C/FA/Iron Sulf/Robert [Stress Formula with Iron Tab] 1 tab PO DAILY 03/08/21 Vitamin D [Drisdol*] 1 cap PO M,W,F 03/08/21 - Past Medical/Surgical History Diabetic: Yes -: Diabetes -: Hyperlipidemia -: Hypertension -: Angina -: Lymphedema -: I&D on right big toe -: Left FEMPOP - Family History Mother Medical History: Diabetes Father Medical History: Cancer - Social History Smoking Status: Never smoker Alcohol use: No CD- Drugs: No Caffeine use: Yes Review of Systems 10-point ROS is otherwise unremarkable Physical Examination Temp Pulse Resp BP Pulse Ox 98 F 89 18 138/63 93 03/10/21 06:25 03/10/21 06:25 03/10/21 06:25 03/10/21 06:25 03/10/21 06:25 General: Alert, In no apparent distress, Oriented x3 HEENT: Atraumatic, Normocephalic Neck: Supple, 2+ carotid pulse no bruit Respiratory: Clear to auscultation bilaterally, Normal air movement Cardiovascular: No edema, Normal pulses, Regular rate/rhythm Capillary refill: <2 Seconds Gastrointestinal: Normal bowel sounds, Soft and benign Musculoskeletal: Other (right AKA) Conclusions/Impression: Antibiotics: Rocephin Start: 03/08 stop: -- Assessment/plan Urosepsis Blood and urine cultures growing non beta hemolytic strep, awaiting full culture report and sensitivity testing. Repeat blood cultures ordered on 03/10. Patient empirically placed on Rocephin. Will tailor antibiotics based off full culture report. CT abdomen and pelvis performed on 03/08 showed no obstructive uropathy, did showed mild right hydronephrosis. ESRD on HD Avoid nephrotoxic agents, continue hemodialysis Q Sunday Leukocytosis with left shift WBC down trending, and continue to monitor WBC trend and fever curve. Diabetes mellitus uncontrolled Hemoglobin A1c of 8.2, continue SSI. Strict glucose control needed for proper infection control. Medical management per primary team Continue to monitor CBC and BMP Continue to monitor for signs of infection. Plan of care discussed with Dr. Pierre Thank you for consultation
--- NOTE | 2021-03-10 15:53 | ECHO ---
HEIGHT: 6 ft 1 in WEIGHT: 210 lb 0 oz DATE OF STUDY: 03/10/[address]: Anthony Hastings MD 2-DIMENSIONAL: YES M.MODE: YES DOPPLER: YES COLOR FLOW: YES TDS: NO PORTABLE: NO DEFINITY: NO BUBBLE STUDY: NO DIAGNOSIS: RULE OUT VEGETATION, GRAM + BACTERMIA CARDIAC HISTORY: CATHERIZATION: YES SURGERY: YES PROSTHETIC VALVE: NO PACEMAKER: MEASUREMENTS (cm) DIASTOLIC (NORMALS) SYSTOLIC (NORMALS) IVSd 1.3 (0.6-1.2) LA Diam 3.2 (1.9-4.0) LVEF 60% LVIDd 3.4 (3.5-5.7) LVIDs 2.3 (2.0-3.5) %FS 31% LVPWd 1.2 (0.6-1.2) Ao Diam 2.8 (2.0-3.7) 2 DIMENSIONAL ASSESSMENT: RIGHT ATRIUM: NORMAL LEFT ATRIUM: NORMAL RIGHT VENTRICLE: NORMAL LEFT VENTRICLE: NORMAL TRICUSPID VALVE: MITRAL VALVE: PULMONIC VALVE: NORMAL AORTIC VALVE: NORMAL PERICARDIAL EFFUSION: NONE AORTIC ROOT: NORMAL LEFT VENTRICULAR WALL MOTION: NORMAL DOPPLER/COLOR FLOW: MILD TRICUSPID AND MITRAL REGURGITATION. COMMENTS: NORMAL LEFT VENTRICULAR EJECTION FRACTION 55-60%. MILD TRICUSPID AND MITRAL REGURGITATION. THICKENED MITRAL VALVE LEAFLET, CANNOT RULE OUT VEGETATION. RECOMMED DEWAYNE. TECHNOLOGIST: Jaci CARMICHAEL
[2021-03-10] MEDS: ACETAMINOPHEN 325 MG TABLET PO PRN (17:06)
[2021-03-10] MEDS: ATORVASTATIN 10 MG TAB PO SCH (20:41)
[2021-03-10] MEDS: NYSTATIN PWDR 100000 UNIT/GM TOP SCH (20:41)
--- NOTE | 2021-03-10 20:52 | P.PN ---
Date of Service: 03/10/21 Vital Signs Temp Pulse Resp BP Pulse Ox 97.8 F 99 H 18 120/74 93 03/10/21 18:06 03/10/21 18:31 03/10/21 17:28 03/10/21 18:31 03/10/21 17:28 Medications Acetaminophen (Acetaminophen 325 Mg Tablet) 650 mg PO Q4H PRN PRN Reason: TEMP > 100' F Last Admin: 03/10/21 17:06 Dose: 650 mg Documented by: Alprazolam (Alprazolam 0.25 Mg Tablet) 0.25 mg PO BEDTIME PRN PRN Reason: ANXIETY Last Admin: 03/09/21 21:37 Dose: 0.25 mg Documented by: Aspirin (Aspirin Ec 81 Mg Tab) 81 mg PO DAILY [facility] Last Admin: 03/10/21 08:35 Dose: 81 mg Documented by: Atorvastatin Calcium (Atorvastatin 10 Mg Tab) 10 mg PO BEDTIME [facility] Last Admin: 03/10/21 20:41 Dose: 10 mg Documented by: Bisacodyl (Bisacodyl E.C. 5 Mg Tab) 10 mg PO DAILYPRN PRN PRN Reason: CONSTIPATION Calcitriol (Calcitrol 0.25 Mcg Cap) 0.5 mcg PO DAILY [facility] Last Admin: 03/10/21 08:35 Dose: 0.5 mcg Documented by: Cholecalciferol (Vitamin D 5,000 Unit Cap) 5,000 unit PO DAILY [facility] Last Admin: 03/09/21 08:25 Dose: 5,000 unit Documented by: Dextrose (D50w 25 Gm/50 Ml Syringe) 12.5 gm IV PRN PRN PRN Reason: HYPOGLYCEMIA Docusate Sodium (Docusate Na 100 Mg Cap) 100 mg PO BID [facility] Last Admin: 03/10/21 20:41 Dose: 100 mg Documented by: Epoetin Tae (Epoetin 4,000 Unit/Ml Vial) 10,000 unit SQ M,W,F [facility] Furosemide (Furosemide 40 Mg Tablet) 40 mg PO DAILY [facility] Last Admin: 03/10/21 08:36 Dose: 40 mg Documented by: Glucagon (Glucagon 1 Mg/Vial) 1 mg IM 1X PRN PRN Reason: HYPOGLYCEMIA Heparin Sodium (Porcine) (Heparin 5000 Unit/Ml 1 Ml Vial) 5,000 unit SQ Q12HR [facility] Last Admin: 03/10/21 20:29 Dose: 5,000 unit Documented by: Heparin Sodium (Porcine) (Heparin 1,000 Unit/Ml Vial) 6,000 unit IV EVERY HD PRN PRN Reason: AFTER EACH Ceftriaxone Sodium/Sodium Chloride (Rocephin 1gm/50 Ml Ivpb) 1 gm in 50 mls @ 100 mls/hr IV Q12HR [facility]; Protocol Last Admin: 03/10/21 20:41 Dose: 50 mls Documented by: Albumin Human (Albumin 25%) 50 mls @ 100 mls/hr IV EVERY HD [facility] Insulin Glargine (Insulin Glargine 100 Units/Ml) 24 units SQ DAILY [facility] Last Admin: 03/10/21 08:35 Dose: 24 units Documented by: Insulin Human Regular (Insulin -Regular Human 50 Unit/0.5 Ml Ml) 0 unit SQ ACHS [facility]; Protocol Last Admin: 03/10/21 20:30 Dose: 8 unit Documented by: Insulin Human Regular (Insulin -Regular Human 50 Unit/0.5 Ml Ml) 5 unit SQ AC [facility] Last Admin: 03/10/21 16:30 Dose: Not Given Documented by: Labetalol HCl (Labetalol 20 Mg/4ml Syringe) 10 mg IV Q6H PRN PRN Reason: SBP>160 Mannitol (Mannitol 25% 12.5 Gm/50 Ml Vial) 12.5 gm IV EVERY HD PRN PRN Reason: Titrate to SBP (MUST DEFINE) Metoprolol Tartrate (Metoprolol Tar 25 Mg Tab) 25 mg PO BID [facility] Last Admin: 03/10/21 16:34 Dose: 25 mg Documented by: Nystatin (Nystatin Pwdr 000119 Unit/Gm) 1 appl TOP BID [facility] Last Admin: 03/10/21 20:41 Dose: 1 appl Documented by: Ondansetron HCl (Ondansetron 4 Mg/2 Ml Vial) 4 mg IV Q6HP PRN PRN Reason: NAUSEA / VOMITING Last Admin: 03/09/21 05:19 Dose: 4 mg Documented by: Sodium Chloride (Flush Normal Saline 10 Ml) 10 ml IV BID [facility] Last Admin: 03/10/21 20:42 Dose: 10 ml Documented by: Tamsulosin HCl (Tamsulosin 0.4 Mg Sr Cap) 0.4 mg PO DAILY [facility] Last Admin: 03/10/21 08:37 Dose: 0.4 mg Documented by: Tramadol HCl (Tramadol Hcl 50 Mg Tab) 50 mg PO Q6H PRN PRN Reason: Pain scale 2-4 (Mild) Last Admin: 03/09/21 21:38 Dose: 50 mg Documented by: Microbiology Results 03/08/21 06:20 Catheterized Urine [place] Count - Preliminary >100,000 CFU/ML. 03/08/21 06:20 Catheterized Urine - Preliminary Assessment/ Plan: Nephrology Progress Note Feeling better today No chest pain or dyspnea No acute events overnight Vitals, medications blood work and imaging reviewed in the chart General: Cooperative, Acute distress HEENT: Atraumatic Neck: Supple Respiratory: Clear to auscultation bilaterally Cardiovascular: No edema, Regular rate/rhythm Gastrointestinal: Non-distended, Tenderness Musculoskeletal: No clubbing, No contractures Integumentary: No rashes Neurological: Normal speech Laboratory Data (last 24 hrs) 03/08/21 06:00: WBC 15.80 H, Hgb 10.1 L, Hct 29.9 L, Plt Count 348 03/08/21 06:00: Sodium 131 L, Potassium 4.9, BUN 40 H, Creatinine 7.27 H*, Glucose 334 H, Total Bilirubin 0.5, AST 11 L, ALT 19, Alkaline Phosphatase 99, Lipase 126 Imagings Data: EXAM DESCRIPTION: CT - Stone Protocol - 03/08/2021 6:54 am CLINICAL HISTORY: ABD PAIN, urinary retention, right lower quadrant pain radiating to the testicles COMPARISON: Abdomen Pelvis Wo Contrast dated 10/10/2020 TECHNIQUE: Axial 3 mm thick images were obtained without oral or IV contrast. The [id number] spans the entirety of the system including uppermost abdomen and lung bases. All CT scans are performed using dose optimization technique as appropriate and may include automated exposure control or mA/KV adjustment according to patient size. FINDINGS: Mild right-sided hydronephrosis and hydroureter present down to the UVJ level. No obstructing or nonobstructing calculi identified. Dense arterial calcifications are present. The attenuation of the fluid within the dilated right collecting system is at least 49 Hounsfield units. This would suggest blood and/or inflammatory debris to be present. No source is evident from this examination. Left-sided hydronephrosis has resolved since the October examination. No suspicious renal masses. Isodense masses and pyelonephritis are not excluded on a stone protocol CT scan. No significant adrenal finding. Urinary bladder is fully contracted around a Rosario catheter. No significant prostate gland finding seen. Imaged portions of the liver, spleen and pancreas show no suspicious findings on non-contrast imaging. No gallbladder or biliary tree abnormality identified. No suspicious bowel findings. Appendix is normal. Contrast material in the colon is presumed to be from outside examination. This could potentially be medication containing bismuth or other hyperdense material. No hernia, mass or bulky lymphadenopathy noted. No free air, free fluid or pneumatosis. Perinephric stranding is present on each kidney similar to comp arison. Bony degenerative changes are present similar to comparison. IMPRESSION: Mild right-sided hydronephrosis down to the UVJ level without obstructing calculus identifiable. Urine within the right collecting system is hyperdense which would indicate the presence of blood and/or inflammatory debris. Source full blood is not evident. This could be from a small mass, infection or recently passed stone. Isodense masses and pyelonephritis are not excluded on stone protocol technique. Conclusions/Impression: ESRD Proteinuria -HD TIW -HD today Hyponatremia -HD TIW HTN with CKD/ CHF complicated by hypotension -Continue Metoprolol BID Diastolic CHF, chronic -HD TIW with UF DM II with CKD, Polyneuropathy & Hyperglycemia -Continue Lantus -RISS Anemia in chronic illness -Increase Retacrit TIW CKD MBD -Continue Calcitriol and Vitamin D3 Right hydroureter and hydronephrosis to the UVJ Pyelonephritis Sepsis/ Septic shock -Continue Rocephin -Follow up culture -Continue Flomax -Repeat Renal US reviewed Case reviewed with Dr. Hastings
[2021-03-11 06:11] LABS: Absolute Lymphocytes (CBC) 0.6 K/uL (0.7-4.9); Basophils % 0.6 % (0-1.3); Hematocrit 25.5 % (39.6-49.0); Lymphocytes % 4.8 % (15.3-44.8); MPV 6.3 fL (7.6-11.3); RBC Red Blood Cell Count 2.57 M/uL (4.33-5.43)
--- NOTE | 2021-03-11 06:12 | P.PN ---
Subjective Date of Service: 03/11/21 Chief Complaint: Urinary retension Subjective: Improving (Feeling better, states patient seems to have some tremors, and feels that began shortly after receiving the Rocephin, improved slowly over time and then recurs after second dose of Rocephin. Patient otherwise reports he has been feeling better every day, no new complaints. Still feels sleepy) Review of Systems 10-point ROS is otherwise unremarkable Physical Examination - Vital Signs Temperature: 97.9 F Blood Pressure: 154/68 Pulse: 100 Respirations: 20 Pulse Ox (%): 93 Assessment & Plan Physician Review Additional Text: Physical exam GEN: AAOx3, NAD, appears fatigued HEENT: Normal conjunctiva, sclera anicteric CV: Regular rate and rhythm, trace b/l lower extremity edema Pulm: Nonlabored respiration on room air ABD: Soft, nontender, nondistended Integumentary: Bilateral inguinal intertrigo Neuro: Normal speech, normal affect Problem list Acute pyelonephritis Bacteremia DM2, insulin dependence ESRD on HD PAD, s.p AKA Hyperlipidemia GERD CAD s/p CABG b/l inguinal intertrigo vallecillo inserted in ER due to reported urinary retention, continue for now, possible DC later today versus tomorrow for voiding trial Discussed case with nephrology, states blood culture obtained at dialysis center reveals gram-positive bacteria growing staph aureus, will have results faxed over Blood and urine cultures from admission growing Enterococcus, sensitivities reviewed, will change to Unasyn. ID consulted Echocardiogram from 03/10 concerning with a mitral valve leaflet thickening noted. Patient will need DEWAYNE Discussed with cardiology, discussed with ID Transfer to [facility] initiated, patient accepted, awaiting callback for bed/transportation continue insulin, sliding scale Continue home Flomax, statin, aspirin Nystatin powder for inguinal intertrigo This afternoon, patient did have episode where he felt clammy, blood pressure noted to be 95/50. Patient improved after 500 cc bolus of normal saline. Started on 50 cc an hour normal saline. He was otherwise asymptomatic, and said he actually felt well. He did receive 25 mg of Toprol which is double his usual home dose. Possible partial resistance to ceftriaxone versus medication. Repeat blood culture so far with no growth Dispo: Pending transfer to [facility]. Time Spent Managing Pts Care (In Minutes): 35
[2021-03-11 06:37] LABS: Albumin 2.4 g/dL (3.4-5.0); Bilirubin Total 0.3 mg/dL (0.2-1.0); Magnesium 2.1 mg/dL (1.8-2.4); Potassium 4.2 mmol/L (3.5-5.1); Protein, Total 7.3 g/dL (6.4-8.2)
[2021-03-11] MEDS: INSULIN -REGULAR HUMAN 50 UNIT/0.5 ML ML SQ SCH ×7 (07:30→20:35)
[2021-03-11] MEDS: ACETAMINOPHEN 325 MG TABLET PO PRN (08:27)
[2021-03-11] MEDS: CEFTRIAXONE 1 GM/NS 50 ML 1 GM/50 ML BAG IV SCH (08:28)
[2021-03-11] MEDS: METOPROLOL TAR 25 MG TAB PO SCH ×2 (08:29→20:32)
[2021-03-11] MEDS: TAMSULOSIN 0.4 MG SR CAP PO SCH (08:30)
[2021-03-11] MEDS: VITAMIN D 5,000 UNIT CAP PO SCH (08:31)
[2021-03-11] MEDS: DOCUSATE NA 100 MG CAP PO SCH ×2 (08:31→20:33)
[2021-03-11] MEDS: FUROSEMIDE 40 MG TABLET PO SCH (08:31)
[2021-03-11] MEDS: CALCITROL 0.25 MCG CAP PO SCH (08:32)
[2021-03-11] MEDS: ASPIRIN EC 81 MG TAB PO SCH (08:33)
[2021-03-11] MEDS: HEPARIN 5000 UNIT/ML 1 ML VIAL SQ SCH ×2 (08:34→20:38)
[2021-03-11] MEDS: INSULIN GLARGINE 100 UNITS/ML SQ SCH (08:35)
[2021-03-11] MEDS: NYSTATIN PWDR 100000 UNIT/GM TOP SCH ×2 (08:35→20:36)
[2021-03-11] MEDS ORDERED: NA CHLORIDE 0.9% 250 ML IV ONE (11:41)
[2021-03-11] MEDS ORDERED: NA CHLORIDE 0.9% 1,000 ML IV SCH (12:10)
--- NOTE | 2021-03-11 12:15 | P.PN ---
Subjective Date of Service: 03/11/21 Chief Complaint: Urinary retension Patient seen examined at bedside, WBC down trending. Review of Systems 10-point ROS is otherwise unremarkable Physical Examination - Vital Signs Temperature: 97.7 F Blood Pressure: 141/58 Pulse: 90 Respirations: 16 Pulse Ox (%): 95 - Studies Laboratory Last Values WBC 15.80 K/uL (4.3-10.9) H 03/08/21 06:00 RBC 2.96 M/uL (4.33-5.43) L 03/08/21 06:00 Hgb 10.1 g/dL (13.6-17.9) L 03/08/21 06:00 Hct 29.9 % (39.6-49.0) L 03/08/21 06:00 MCV 100.9 fL (80-100) H 03/08/21 06:00 MCH 34.0 pg (27.0-35.0) 03/08/21 06:00 MCHC 33.7 g/dL (32.0-36.0) 03/08/21 06:00 RDW 14.3 % (12.1-15.2) 03/08/21 06:00 Plt Count 348 K/uL (152-406) 03/08/21 06:00 MPV 6.3 fL (7.6-11.3) L 03/08/21 06:00 Neutrophils % 91.6 % (41.7-73.7) H 03/08/21 06:00 Lymphocytes % 2.5 % (15.3-44.8) L 03/08/21 06:00 Monocytes % 5.7 % (3.3-12.3) 03/08/21 06:00 Eosinophils % 0.0 % (0-4.4) 03/08/21 06:00 Basophils % 0.2 % (0-1.3) 03/08/21 06:00 Absolute Neutrophils 14.5 K/uL (1.8-8.0) H 03/08/21 06:00 Absolute Lymphocytes 0.4 K/uL (0.7-4.9) L 03/08/21 06:00 Absolute Monocytes 0.9 K/uL (0.1-1.3) 03/08/21 06:00 Absolute Eosinophils 0.0 K/uL (0-0.5) 03/08/21 06:00 Absolute Basophils 0.0 K/uL (0-0.5) 03/08/21 06:00 Platelet Estimate Adeq 03/08/21 06:00 Anisocytosis Slight 03/08/21 06:00 Macrocytosis Slight 03/08/21 06:00 Morphology Comment Noted (NOT SEEN) 03/08/21 06:00 Sodium 131 mmol/L (136-145) L 03/08/21 06:00 Potassium 4.9 mmol/L (3.5-5.1) 03/08/21 06:00 Chloride 97 mmol/L (98-107) L 03/08/21 06:00 Carbon Dioxide 24 mmol/L (21-32) 03/08/21 06:00 BUN 40 mg/dL (7-18) H 03/08/21 06:00 Creatinine 7.27 mg/dL (0.55-1.3) H* 03/08/21 06:00 Estimated GFR 8 mL/min (=/>90) L 03/08/21 06:00 Glucose 334 mg/dL (74-106) H 03/08/21 06:00 Hemoglobin A1c 8.2 % (4.2-6.3) H 03/08/21 06:00 Calcium 8.1 mg/dL (8.5-10.1) L 03/08/21 06:00 Total Bilirubin 0.5 mg/dL (0.2-1.0) 03/08/21 06:00 Direct Bilirubin 0.2 mg/dL (0-0.2) 03/08/21 06:00 AST 11 U/L (15-37) L 03/08/21 06:00 ALT 19 U/L (12-78) 03/08/21 06:00 Alkaline Phosphatase 99 U/L (45-117) 03/08/21 06:00 Serum Total Protein 8.0 g/dL (6.4-8.2) 03/08/21 06:00 Albumin 3.3 g/dL (3.4-5.0) L 03/08/21 06:00 Globulin 4.7 g/dL (2.3-3.5) H 03/08/21 06:00 Albumin/Globulin Ratio 0.7 (1.1-1.8) L 03/08/21 06:00 Lipase 126 U/L (73-393) 03/08/21 06:00 TSH 0.874 uIU/mL (0.360-3.740) 03/08/21 06:00 Free T4 1.19 ng/dL (0.76-1.46) 03/08/21 06:00 Urine pH 8.5 (5.0-7.0) H 03/08/21 06:17 Ur Specific [place] 1.020 (1.005-1.030) 03/08/21 06:17 Glucose (UA)(Auto) 2+ (Negative) H 03/08/21 06:17 Urine Ketones Negative (Negative) 03/08/21 06:17 Urine Blood 2+ (Negative) H 03/08/21 06:17 Urine Nitrite Negative (Negative) 03/08/21 06:17 Ur Leukocyte Esterase Trace (Negative) H 03/08/21 06:17 Urine RBC 20-50 /HPF (NONE SEEN) H 03/08/21 06:20 Urine WBC >50 /HPF (<5) H 03/08/21 06:20 Ur Squamous Epith Cells <5 /HPF (NONE SEEN) 03/08/21 06:20 Urine Bacteria None seen /HPF (NONE SEEN) 03/08/21 06:20 Urine Sperm Present (NONE SEEN) H 03/08/21 06:20 Urine Culture Reflexed Not needed 03/08/21 06:20 Urine Total Protein 3+ (Negative) H 03/08/21 06:17 Smear Scan Ok (OK) 03/08/21 06:00 Microbiology Data (last 24 hrs): 03/08/21 06:20 Catheterized Urine [place] Count - Final >100,000 CFU/ML. 03/08/21 06:20 Catheterized Urine - Final Enterococcus Faecalis Assessment And Plan - Plan Physical Exam: General: Alert, In no apparent distress, Oriented x3 HEENT: Atraumatic, Normocephalic Neck: Supple, 2+ carotid pulse no bruit Respiratory: Clear to auscultation bilaterally, Normal air movement Cardiovascular: No edema, Normal pulses, Regular rate/rhythm Capillary refill: <2 Seconds Gastrointestinal: Normal bowel sounds, Soft and benign Musculoskeletal: Other (right AKA) Conclusions/Impression: Antibiotics: Levaquin start: 03/11 stop: -- Rocephin Start: 03/08 stop: 03/11 Assessment/plan Urosepsis Blood and urine cultures growing non beta hemolytic strep, awaiting full culture report and sensitivity testing. Repeat blood cultures ordered on 03/10. Patient empirically placed on Rocephin. Rocephin switched to Levaquin as patient was having tremor and per and patient they believe it is due to antibiotics as his symptoms appear to worsen directly after administration of antibiotics. Blood culture from previous facility growing methicillin- susceptible staph aureus. As such will cover methicillin-susceptible Staphylococcus aureus and non beta hemolytic strep. CT abdomen and pelvis performed on 03/08 showed no obstructive uropathy, did showed mild right hydronephrosis. Possible endocarditis Trans thoracic echocardiogram showed thickening of the mitral valve, and recommend transesophageal echocardiogram to further evaluate. ESRD on HD Avoid nephrotoxic agents, continue hemodialysis Q Ramon Sunday Leukocytosis with left shift WBC down trending, and continue to monitor WBC trend and fever curve. Diabetes mellitus uncontrolled Hemoglobin A1c of 8.2, continue SSI. Strict glucose control needed for proper infection control. Medical management per primary team Continue to monitor CBC and BMP Continue to monitor for signs of infection. Plan of care discussed with Dr. Pierre Thank you for consultation Physician Review: Patient Assessed, Agree with Above Assessment and Plan Physician Review Additional Text: Physical exam GEN: AAOx3, NAD HEENT: Normal conjunctiva, sclera anicteric CV: Regular rate and rhythm, no edema Pulm: Nonlabored respiration on room air ABD: Soft, nontender, nondistended Integumentary: No rashes Neuro: Normal speech, normal affect Problem list Acute pyelonephritis Bacteremia DM2, insulin dependence ESRD on HD PAD, s.p AKA Hyperlipidemia GERD CAD s/p CABG b/l inguinal intertrigo vallecillo inserted in ER due to reported urinary retention, can likely dc later today/tomorrow if continues to improve Discussed case with nephrology, states blood culture obtained at dialysis center reveals gram-positive bacteria growing, will have results faxed over Follow-up blood cultures obtained in the ER - positive Follow-up urine cultures Continue antibiotics, ID consulted gram positive bacteremia, will obtain echocardiogram to eval for vegetation continue insulin, sliding scale Continue home Flomax, statin, aspirin Nystatin powder for inguinal intertrigo Dispo: anticipate dc home in ~2-3 days.. Will review outside culture results
[2021-03-11] MEDS: NA CHLORIDE 0.9% 1,000 ML IV SCH (12:40)
[2021-03-11] MEDS: Levofloxacin 250mg IV 250 MG/50 ML BAG IV SCH (14:14)
--- NOTE | 2021-03-11 15:30 | RAD REPORT ---
EXAM DESCRIPTION: RAD - Chest Single View - 03/11/2021 3:23 pm CLINICAL HISTORY: low blood pressure Chest pain. COMPARISON: CHEST SINGLE VIEW dated 03/31/2015; CHEST SINGLE VIEW dated 02/17/2015 FINDINGS: Portable technique limits examination quality. Mild interstitial pulmonary edema seen. The heart is moderately enlarged in size. Sternotomy wires pr esent. IMPRESSION: Mild CHF.
[2021-03-11] MEDS: EPOETIN ALFA 10,000 UNIT/ML VIAL SQ SCH (17:19)
[2021-03-11] MEDS: AMPICILLIN/SULBACT 3 GM in NA CHLORIDE 0.9% 100 ML IVPB SCH (18:16)
--- NOTE | 2021-03-11 20:28 | RAD REPORT ---
EXAM DESCRIPTION: US - Scrotum Testicles - 03/11/2021 7:57 pm CLINICAL HISTORY: Tender right testicle Pain and swelling COMPARISON: Pelvis dated 08/23/2020 FINDINGS: The right testicle 3.7 x 3.6 x 2.4 cm. No intratesticular masses or evidence of testicular torsion. Blood flow to the right testicle appears slightly increased. The left testicle 3.3 x 2.8 x 2.2 cm. No intratesticular masses or evidence of testicular torsion. The right epididymis appears enlarged with increased blood flow. No pathologic fluid collections. IMPRESSION: Moderate right sided epididymitis-orchitis is present. No testicular mass or torsion seen.
[2021-03-11] MEDS: ALPRAZOLAM 0.25 MG TABLET PO PRN (20:33)
[2021-03-11] MEDS: ATORVASTATIN 10 MG TAB PO SCH (20:37)
[2021-03-11] MEDS: NEPRO SHAKE 237 ML CAN PO SCH (20:38)
[2021-03-11] MEDS: TRAMADOL HCL 50 MG TAB PO PRN (20:47)
[2021-03-11] MEDS ORDERED: VANCOMYCIN 1.5 GM in NA CHLORIDE 0.9% 500 ML IVPB SCH (21:00)
--- NOTE | 2021-03-11 21:52 | P.PN ---
Date of Service: 03/11/21 Vital Signs Temp Pulse Resp BP Pulse Ox 98.0 F 95 H 14 145/59 H 95 03/11/21 20:00 03/11/21 20:32 03/11/21 20:47 03/11/21 20:32 03/11/21 20:47 Medications Acetaminophen (Acetaminophen 325 Mg Tablet) 650 mg PO Q4H PRN PRN Reason: TEMP > 100' F Last Admin: 03/11/21 08:27 Dose: 650 mg Documented by: Alprazolam (Alprazolam 0.25 Mg Tablet) 0.25 mg PO BEDTIME PRN PRN Reason: ANXIETY Last Admin: 03/11/21 20:33 Dose: 0.25 mg Documented by: Aspirin (Aspirin Ec 81 Mg Tab) 81 mg PO DAILY [facility] Last Admin: 03/11/21 08:33 Dose: 81 mg Documented by: Atorvastatin Calcium (Atorvastatin 10 Mg Tab) 10 mg PO BEDTIME [facility] Last Admin: 03/11/21 20:37 Dose: 10 mg Documented by: Bisacodyl (Bisacodyl E.C. 5 Mg Tab) 10 mg PO DAILYPRN PRN PRN Reason: CONSTIPATION Calcitriol (Calcitrol 0.25 Mcg Cap) 0.5 mcg PO DAILY [facility] Last Admin: 03/11/21 08:32 Dose: Not Given Documented by: Cholecalciferol (Vitamin D 5,000 Unit Cap) 5,000 unit PO DAILY [facility] Last Admin: 03/11/21 08:31 Dose: Not Given Documented by: Dextrose (D50w 25 Gm/50 Ml Syringe) 12.5 gm IV PRN PRN PRN Reason: HYPOGLYCEMIA Docusate Sodium (Docusate Na 100 Mg Cap) 100 mg PO BID [facility] Last Admin: 03/11/21 20:33 Dose: 100 mg Documented by: Enteral Nutritional Formula (Nepro Shake 237 Ml Can) 237 ml PO BID [facility] Last Admin: 03/11/21 20:38 Dose: Not Given Documented by: Epoetin Tae (Epoetin Tae 10,000 Unit/Ml Vial) 10,000 unit SQ M,W,F [facility] Last Admin: 03/11/21 17:19 Dose: 10,000 unit Documented by: Furosemide (Furosemide 40 Mg Tablet) 40 mg PO DAILY [facility] Last Admin: 03/11/21 08:31 Dose: 40 mg Documented by: Glucagon (Glucagon 1 Mg/Vial) 1 mg IM 1X PRN PRN Reason: HYPOGLYCEMIA Heparin Sodium (Porcine) (Heparin 5000 Unit/Ml 1 Ml Vial) 5,000 unit SQ Q12HR [facility] Last Admin: 03/11/21 20:38 Dose: 5,000 unit Documented by: Heparin Sodium (Porcine) (Heparin 1,000 Unit/Ml Vial) 6,000 unit IV EVERY HD PRN PRN Reason: AFTER EACH Albumin Human (Albumin 25%) 50 mls @ 100 mls/hr IV EVERY HD [facility] Sodium Chloride (Ns 1000 Ml Ivbag) 1,000 mls @ 50 mls/hr IV .Q20H [facility] Last Admin: 03/11/21 12:40 Dose: 1,000 mls Documented by: Levofloxacin/Dextrose (Levaquin 250mg/50 Ml Ivpb) 250 mg in 50 mls @ 50 mls/hr IV Q24H [facility]; Protocol Last Admin: 03/11/21 14:14 Dose: 50 mls Documented by: Ampicillin Sodium/Sulbactam (Sodium 3 gm/ Sodium Chloride) 100 mls @ 200 mls/hr IVPB Q24H [facility] Last Admin: 03/11/21 18:16 Dose: 100 mls Documented by: Insulin Glargine (Insulin Glargine 100 Units/Ml) 24 units SQ DAILY [facility] Last Admin: 03/11/21 08:35 Dose: 24 units Documented by: Insulin Human Regular (Insulin -Regular Human 50 Unit/0.5 Ml Ml) 0 unit SQ ACHS [facility]; Protocol Last Admin: 03/11/21 20:35 Dose: 8 unit Documented by: Insulin Human Regular (Insulin -Regular Human 50 Unit/0.5 Ml Ml) 5 unit SQ AC [facility] Last Admin: 03/11/21 16:30 Dose: Not Given Documented by: Labetalol HCl (Labetalol 20 Mg/4ml Syringe) 10 mg IV Q6H PRN PRN Reason: SBP>160 Mannitol (Mannitol 25% 12.5 Gm/50 Ml Vial) 12.5 gm IV EVERY HD PRN PRN Reason: Titrate to SBP (MUST DEFINE) Metoprolol Tartrate (Metoprolol Tar 25 Mg Tab) 25 mg PO BID [facility] Last Admin: 03/11/21 20:32 Dose: 25 mg Documented by: Nystatin (Nystatin Pwdr [id number] Unit/Gm) 1 appl TOP BID [facility] Last Admin: 03/11/21 20:36 Dose: 1 appl Documented by: Ondansetron HCl (Ondansetron 4 Mg/2 Ml Vial) 4 mg IV Q6HP PRN PRN Reason: NAUSEA / VOMITING Last Admin: 03/09/21 05:19 Dose: 4 mg Documented by: Sodium Chloride (Flush Normal Saline 10 Ml) 10 ml IV BID [facility] Last Admin: 03/11/21 20:38 Dose: Not Given Documented by: Tamsulosin HCl (Tamsulosin 0.4 Mg Sr Cap) 0.4 mg PO DAILY [facility] Last Admin: 03/11/21 08:30 Dose: 0.4 mg Documented by: Tramadol HCl (Tramadol Hcl 50 Mg Tab) 50 mg PO Q6H PRN PRN Reason: Pain scale 2-4 (Mild) Last Admin: 03/11/21 20:47 Dose: 50 mg Documented by: Microbiology Results 03/08/21 06:20 Catheterized Urine [place]rich Count - Final >100,000 CFU/ML. 03/08/21 06:20 Catheterized Urine - Final Enterococcus Faecalis Assessment/ Plan: Nephrology Progress Note More anxious today due to episodes of hypotension Reports right testicular pain No acute events overnight Vitals, medications blood work and imaging reviewed in the chart General: Cooperative, Acute distress HEENT: Atraumatic Neck: Supple Respiratory: Clear to auscultation bilaterally Cardiovascular: No edema, Regular rate/rhythm Gastrointestinal: Non-distended, Tenderness Musculoskeletal: No clubbing, No contractures Integumentary: No rashes Neurological: Normal speech Right testicle tender Laboratory Data (last 24 hrs) 03/08/21 06:00: WBC 15.80 H, Hgb 10.1 L, Hct 29.9 L, Plt Count 348 03/08/21 06:00: Sodium 131 L, Potassium 4.9, BUN 40 H, Creatinine 7.27 H*, Glucose 334 H, Total Bilirubin 0.5, AST 11 L, ALT 19, Alkaline Phosphatase 99, Lipase 126 Imagings Data: EXAM DESCRIPTION: CT - Stone Protocol - 03/08/2021 6:54 am CLINICAL HISTORY: ABD PAIN, urinary retention, right lower quadrant pain radiating to the testicles COMPARISON: Abdomen Pelvis Wo Contrast dated 10/10/2020 TECHNIQUE: Axial 3 mm thick images were obtained without oral or IV contrast. The [id number] spans the entirety of the system including uppermost abdomen and lung bases. All CT scans are performed using dose optimization technique as appropriate and may include automated exposure control or mA/KV adjustment according to patient size. FINDINGS: Mild right-sided hydronephrosis and hydroureter present down to the UVJ level. No obstructing or nonobstructing calculi identified. Dense arterial calcifications are present. The attenuation of the fluid within the dilated right collecting system is at least 49 Hounsfield units. This would suggest blood and/or inflammatory debris to be present. No source is evident from this examination. Left-sided hydronephrosis has resolved since the October examination. No suspicious renal masses. Isodense masses and pyelonephritis are not excluded on a stone protocol CT scan. No significant adrenal finding. Urinary bladder is fully contracted around a Rosario catheter. No significant prostate gland finding seen. Imaged portions of the liver, spleen and pancreas show no suspicious findings on non-contrast imaging. No gallbladder or biliary tree abnormality identified. No suspicious bowel findings. Appendix is normal. Contrast material in the colon is presumed to be from outside examination. This could potentially be medication containing bismuth or other hyperdense material. No hernia, mass or bulky lymphadenopathy noted. No free air, free fluid or pneumatosis. Perinephric stranding is present on each kidney similar to comparison. Bony degenerative changes are present similar to comparison. IMPRESSION: Mild right-sided hydronephrosis down to the UVJ level without obstructing calculus identifiable. Urine within the right collecting system is hyperdense which would indicate the presence of blood and/or inflammatory debris. Source full blood is not evident. This could be from a small mass, infection or recently passed stone. Isodense masses and pyelonephritis are not excluded on stone protocol technique. Conclusions/Impression: ESRD Proteinuria -HD TIW Hyponatremia -HD TIW HTN with CKD/ CHF complicated by hypotension -Continue Metoprolol BID Diastolic CHF, chronic -HD TIW with UF DM II with CKD, Polyneuropathy & Hyperglycemia -Continue Lantus -RISS Anemia in chronic illness -Continue Retacrit TIW CKD MBD -Continue Calcitriol and Vitamin D3 Right hydroureter and hydronephrosis to the UVJ Pyelonephritis Sepsis/ Septic shock -Continue Unasyn and Levaquin -Continue Flomax -Repeat Renal US reviewed -Plan for DEWAYNE Right testicular pain -Scrotal US ordered Case reviewed with Dr. Hastings Plan to transfer for DEWAYNE
[2021-03-11] MEDS ORDERED: FAMOTIDINE 20 MG/2 ML VIAL IV PRN ×2 (22:33→22:49)
[2021-03-12 05:46] LABS: Absolute Lymphocytes (CBC) 0.9 K/uL (0.7-4.9); Basophils % 0.5 % (0-1.3); Hematocrit 24.1 % (39.6-49.0); Lymphocytes % 8.7 % (15.3-44.8); MPV 6.2 fL (7.6-11.3); RBC Red Blood Cell Count 2.44 M/uL (4.33-5.43)
[2021-03-12 06:24] LABS: Albumin 2.2 g/dL (3.4-5.0); Bilirubin Total 0.2 mg/dL (0.2-1.0); Magnesium 2.1 mg/dL (1.8-2.4); Potassium 4.1 mmol/L (3.5-5.1); Protein, Total 6.7 g/dL (6.4-8.2)
[2021-03-12] MEDS: INSULIN -REGULAR HUMAN 50 UNIT/0.5 ML ML SQ SCH ×8 (07:30→21:00)
[2021-03-12] MEDS: INSULIN GLARGINE 100 UNITS/ML SQ SCH (09:00)
[2021-03-12] MEDS: NEPRO SHAKE 237 ML CAN PO SCH ×2 (09:00→21:00)
[2021-03-12] MEDS: NYSTATIN PWDR 100000 UNIT/GM TOP SCH ×2 (09:00→21:00)
[2021-03-12] MEDS: NA CHLORIDE 0.9% 1,000 ML IV SCH (10:25)
[2021-03-12] MEDS: DOCUSATE NA 100 MG CAP PO SCH ×2 (10:26→21:12)
[2021-03-12] MEDS: METOPROLOL TAR 25 MG TAB PO SCH ×2 (10:26→21:11)
[2021-03-12] MEDS: ASPIRIN EC 81 MG TAB PO SCH (10:26)
[2021-03-12] MEDS: VITAMIN D 5,000 UNIT CAP PO SCH (10:26)
[2021-03-12] MEDS: FUROSEMIDE 40 MG TABLET PO SCH (10:26)
[2021-03-12] MEDS: CALCITROL 0.25 MCG CAP PO SCH (10:26)
[2021-03-12] MEDS: TAMSULOSIN 0.4 MG SR CAP PO SCH (10:26)
[2021-03-12] MEDS: HEPARIN 5000 UNIT/ML 1 ML VIAL SQ SCH ×2 (10:28→21:13)
--- NOTE | 2021-03-12 14:56 | PN ---
Date of Progress Note: 03/12/2021 Subjective: The patient is seen and examined. He seems a little drowsy and sedated at this time. D enies any other active issues at this time. Physical Examination: Vital Signs: Have been reviewed and are stable. General: He appears in no acute distress. Lungs: Clear to auscultation. ABDOMEN: Soft and nontender. Extremities: Without any evidence of edema. Laboratory Data: Has been reviewed in detail. Current Medications: Have been reviewed in detail. Impression: 1.End-stage renal disease, on dialysis. The patient will need dialysis today. 2.Concern for urinary tract infection and a possible endocarditis from enterococcus. The patient wi ll need a DEWAYNE for further evaluation. 3.Leukocytosis, improving. 4.Type 2 diabetes, uncontrolled. Improving. Plan: The patient is doing okay at this time. Urosepsis is improving at this time, and the patient is on Levaquin. The patient will get dialysis today per his regular schedule and anemia is being mon itored. Continue to monitor closely and will follow up. CHETNA/MIRIAN Voice ID: [id number] Report ID: [id number]
--- NOTE | 2021-03-12 15:09 | P.PN ---
Date of Service: 03/12/21 Subjective: Improving, overall feeling better. Yesterday reported some right scrotal pain. Scrotal ultrasound concerning for right sided orchitis/epididymitis Patient's Rocephin was switched to Unasyn yesterday Patient falling asleep, continues with some mild tremors Review of EMR shows patient received Xanax and tramadol last night Review of Systems 10-point ROS is otherwise unremarkable Physical exam GEN: AAOx3, NAD, appears fatigued HEENT: Normal conjunctiva, sclera anicteric CV: Regular rate and rhythm, trace b/l lower extremity edema Pulm: Nonlabored respiration on room air ABD: Soft, nontender, nondistended Integumentary: Bilateral inguinal intertrigo Neuro: Normal speech, normal affect Problem list Acute pyelonephritis w/ Bacteremia secondary to Enterococcus Right orchitis/epididymitis DM2, insulin dependent ESRD on HD PAD, s.p AKA Hyperlipidemia GERD CAD s/p CABG b/l inguinal intertrigo vallecillo inserted in ER due to reported urinary retention, continue for now Discussed case with nephrology, states blood culture obtained at dialysis center reveals gram-positive bacteria growing staph aureus Blood and urine cultures from admission growing Enterococcus, sensitivities rev iewed, changed to Unasyn on 03/11. ID consulted Echocardiogram from 03/10 concerning with a mitral valve leaflet thickening noted. Patient will need DEWAYNE - Discussed with cardiology, discussed with ID Transfer to [facility] initiated, patient accepted on 03/11, awaiting callback for bed/transportation continue insulin, sliding scale Continue home Flomax, statin, aspirin Nystatin powder for inguinal intertrigo Repeat blood culture so far with no growth Suspect patient's sleepiness/somnolence is secondary to the Xanax and tramadol. He states he does get shaky/tremulous when he takes Xanax in the past. Dispo: Pending transfer to [facility]. Time Spent Managing Pts Care (In Minutes): 35
[2021-03-12] MEDS: Levofloxacin 250mg IV 250 MG/50 ML BAG IV SCH ×2 (15:51→21:17)
[2021-03-12] MEDS: ATORVASTATIN 10 MG TAB PO SCH (21:13)
[2021-03-12] MEDS: AMPICILLIN/SULBACT 3 GM in NA CHLORIDE 0.9% 100 ML IVPB SCH (21:14)
[2021-03-12] MEDS ORDERED: AMPICILLIN/SULBACTAM 3GM/VIAL ONE (22:48)
[2021-03-12] MEDS ORDERED: NA CHLORIDE 0.9% 50 ML ONE (22:49)
[2021-03-13 05:04] LABS: Absolute Lymphocytes (CBC) 0.8 K/uL (0.7-4.9); Basophils % 0.9 % (0-1.3); Hematocrit 24.2 % (39.6-49.0); Lymphocytes % 7.2 % (15.3-44.8); RBC Red Blood Cell Count 2.47 M/uL (4.33-5.43)
[2021-03-13] MEDS: METOPROLOL TAR 25 MG TAB PO SCH ×2 (05:15→17:56)
[2021-03-13 05:24] LABS: Albumin 2.2 g/dL (3.4-5.0); Bilirubin Total 0.3 mg/dL (0.2-1.0); Potassium 3.8 mmol/L (3.5-5.1); Protein, Total 7.1 g/dL (6.4-8.2)
--- NOTE | 2021-03-13 06:14 | P.PN ---
Date of Service: 03/13/21 Subjective: Improving, overall feeling better. Scrotal pain mostly unchanged, not worsening Tolerating Unasyn well Not as sleepy, no longer having tremors. Since discontinuation of Xanax and tramadol BM yesterday Review of Systems 10-point ROS is otherwise unremarkable Physical exam GEN: AAOx3, NAD HEENT: Normal conjunctiva, sclera anicteric CV: Regular rate and rhythm, trace b/l lower extremity edema Pulm: Nonlabored respiration on room air ABD: Soft, nontender, nondistended Integumentary: Bilateral inguinal intertrigo Right testicular tenderness or scrotal tenderness Neuro: Normal speech, normal affect Problem list Acute pyelonephritis w/ Bacteremia secondary to Enterococcus Right orchitis/epididymitis DM2, insulin dependent ESRD on HD PAD, s.p AKA Hyperlipidemia GERD CAD s/p CABG b/l inguinal intertrigo Rosario inserted in ER due to reported urinary retention, discontinued today, voiding trial as patient has improved Discussed case with nephrology, states blood culture obtained at dialysis center reveals gram-positive bacteria growing staph aureus Blood and urine cultures from admission growing Enterococcus, sensitivities reviewed, changed to Unasyn on 03/11. ID consulted Echocardiogram from 03/10 concerning with mitral valve leaflet thickening noted. Patient will need DEWAYNE - Discussed with cardiology, discussed with ID Continue Unasyn for Enterococcus. Levaquin started empirically, continue for added coverage of orchitis/epididymitis. Transfer to [facility] initiated, patient accepted on 03/11, awaiting callback for bed/transportation continue insulin, sliding scale Continue home Flomax, statin, aspirin Nystatin powder for inguinal intertrigo Repeat blood culture so far with no growth Suspect patient's sleepiness/somnolence is secondary to the Xanax and tramadol. He states he does get shaky/tremulous when he takes Xanax in the past. Tremors have resolved, with some slight somnolence this morning but significantly improved. Dispo: Pending transfer to [facility]. Time Spent Managing Pts Care (In Minutes): 35
[2021-03-13] MEDS: INSULIN -REGULAR HUMAN 50 UNIT/0.5 ML ML SQ SCH ×6 (07:30→20:45)
[2021-03-13] MEDS: NEPRO SHAKE 237 ML CAN PO SCH ×2 (09:00→20:40)
[2021-03-13] MEDS: NYSTATIN PWDR 100000 UNIT/GM TOP SCH ×2 (09:00→20:40)
[2021-03-13] MEDS: ASPIRIN EC 81 MG TAB PO SCH (09:06)
[2021-03-13] MEDS: DOCUSATE NA 100 MG CAP PO SCH ×2 (09:06→20:33)
[2021-03-13] MEDS: TAMSULOSIN 0.4 MG SR CAP PO SCH (09:07)
[2021-03-13] MEDS: CALCITROL 0.25 MCG CAP PO SCH (09:07)
[2021-03-13] MEDS: FUROSEMIDE 40 MG TABLET PO SCH (09:07)
[2021-03-13] MEDS: HEPARIN 5000 UNIT/ML 1 ML VIAL SQ SCH ×2 (09:07→20:35)
[2021-03-13] MEDS: VITAMIN D 5,000 UNIT CAP PO SCH (09:07)
[2021-03-13] MEDS: INSULIN GLARGINE 100 UNITS/ML SQ SCH (09:08)
[2021-03-13] MEDS: Levofloxacin 250mg IV 250 MG/50 ML BAG IV SCH (14:30)
[2021-03-13] MEDS: AMPICILLIN/SULBACT 3 GM in NA CHLORIDE 0.9% 100 ML IVPB SCH (17:57)
[2021-03-13] MEDS: ATORVASTATIN 10 MG TAB PO SCH (20:34)
[2021-03-13] MEDS: HYDRALAZINE HCL 20 MG/ML VIAL IV PRN (20:35)
[2021-03-13] MEDS: ACETAMINOPHEN 325 MG TABLET PO PRN (22:15)
[2021-03-14 04:44] LABS: Absolute Lymphocytes (CBC) 0.8 K/uL (0.7-4.9); Hematocrit 26.5 % (39.6-49.0); Lymphocytes % 8.2 % (15.3-44.8); MPV 6.3 fL (7.6-11.3); RBC Red Blood Cell Count 2.68 M/uL (4.33-5.43)
[2021-03-14 05:17] LABS: Magnesium 1.9 mg/dL (1.8-2.4); Potassium 3.6 mmol/L (3.5-5.1)
[2021-03-14] MEDS: METOPROLOL TAR 25 MG TAB PO SCH ×2 (05:38→17:00)
[2021-03-14] MEDS: INSULIN -REGULAR HUMAN 50 UNIT/0.5 ML ML SQ SCH ×4 (07:30→20:27)
[2021-03-14] MEDS: FUROSEMIDE 40 MG TABLET PO SCH (08:48)
[2021-03-14] MEDS: CALCITROL 0.25 MCG CAP PO SCH (08:48)
[2021-03-14] MEDS: TAMSULOSIN 0.4 MG SR CAP PO SCH (08:48)
[2021-03-14] MEDS: HEPARIN 5000 UNIT/ML 1 ML VIAL SQ SCH ×2 (08:48→20:39)
[2021-03-14] MEDS: DOCUSATE NA 100 MG CAP PO SCH ×2 (08:49→20:39)
[2021-03-14] MEDS: INSULIN GLARGINE 100 UNITS/ML SQ SCH (08:49)
[2021-03-14] MEDS: ASPIRIN EC 81 MG TAB PO SCH (08:49)
[2021-03-14] MEDS: VITAMIN D 5,000 UNIT CAP PO SCH (08:50)
[2021-03-14] MEDS: NYSTATIN PWDR 100000 UNIT/GM TOP SCH ×2 (08:51→20:40)
[2021-03-14] MEDS: NEPRO SHAKE 237 ML CAN PO SCH ×3 (08:52→20:40)
[2021-03-14] MEDS ORDERED: POTASSIUM CL SA 10 MEQ TAB PO ONE (10:56)
[2021-03-14] MEDS: Levofloxacin 250mg IV 250 MG/50 ML BAG IV SCH (12:00)
--- NOTE | 2021-03-14 12:39 | P.PN ---
Subjective Date of Service: 03/14/21 Chief Complaint: Urinary retension Patient seen examined at bedside, feeling better. Awaiting transfer for transesophageal echocardiogram. Review of Systems 10-point ROS is otherwise unremarkable Physical Examination - Vital Signs Temperature: 97.7 F Blood Pressure: 145/65 Pulse: 60 Respirations: 16 Pulse Ox (%): 93 - Studies Laboratory Last Values WBC 15.80 K/uL (4.3-10.9) H 03/08/21 06:00 RBC 2.96 M/uL (4.33-5.43) L 03/08/21 06:00 Hgb 10.1 g/dL (13.6-17.9) L 03/08/21 06:00 Hct 29.9 % (39.6-49.0) L 03/08/21 06:00 MCV 100.9 fL (80-100) H 03/08/21 06:00 MCH 34.0 pg (27.0-35.0) 03/08/21 06:00 MCHC 33.7 g/dL (32.0-36.0) 03/08/21 06:00 RDW 14.3 % (12.1-15.2) 03/08/21 06:00 Plt Count 348 K/uL (152-406) 03/08/21 06:00 MPV 6.3 fL (7.6-11.3) L 03/08/21 06:00 Neutrophils % 91.6 % (41.7-73.7) H 03/08/21 06:00 Lymphocytes % 2.5 % (15.3-44.8) L 03/08/21 06:00 Monocytes % 5.7 % (3.3-12.3) 03/08/21 06:00 Eosinophils % 0.0 % (0-4.4) 03/08/21 06:00 Basophils % 0.2 % (0-1.3) 03/08/21 06:00 Absolute Neutrophils 14.5 K/uL (1.8-8.0) H 03/08/21 06:00 Absolute Lymphocytes 0.4 K/uL (0.7-4.9) L 03/08/21 06:00 Absolute Monocytes 0.9 K/uL (0.1-1.3) 03/08/21 06:00 Absolute Eosinophils 0.0 K/uL (0-0.5) 03/08/21 06:00 Absolute Basophils 0.0 K/uL (0-0.5) 03/08/21 06:00 Platelet Estimate Adeq 03/08/21 06:00 Anisocytosis Slight 03/08/21 06:00 Macrocytosis Slight 03/08/21 06:00 Morphology Comment Noted (NOT SEEN) 03/08/21 06:00 Sodium 131 mmol/L (136-145) L 03/08/21 06:00 Potassium 4.9 mmol/L (3.5-5.1) 03/08/21 06:00 Chloride 97 mmol/L (98-107) L 03/08/21 06:00 Carbon Dioxide 24 mmol/L (21-32) 03/08/21 06:00 BUN 40 mg/dL (7-18) H 03/08/21 06:00 Creatinine 7.27 mg/dL (0.55-1.3) H* 03/08/21 06:00 Estimated GFR 8 mL/min (=/>90) L 03/08/21 06:00 Glucose 334 mg/dL (74-106) H 03/08/21 06:00 Hemoglobin A1c 8.2 % (4.2-6.3) H 03/08/21 06:00 Calcium 8.1 mg/dL (8.5-10.1) L 03/08/21 06:00 Total Bilirubin 0.5 mg/dL (0.2-1.0) 03/08/21 06:00 Direct Bilirubin 0.2 mg/dL (0-0.2) 03/08/21 06:00 AST 11 U/L (15-37) L 03/08/21 06:00 ALT 19 U/L (12-78) 03/08/21 06:00 Alkaline Phosphatase 99 U/L (45-117) 03/08/21 06:00 Serum Total Protein 8.0 g/dL (6.4-8.2) 03/08/21 06:00 Albumin 3.3 g/dL (3.4-5.0) L 03/08/21 06:00 Globulin 4.7 g/dL (2.3-3.5) H 03/08/21 06:00 Albumin/Globulin Ratio 0.7 (1.1-1.8) L 03/08/21 06:00 Lipase 126 U/L (73-393) 03/08/21 06:00 TSH 0.874 uIU/mL (0.360-3.740) 03/08/21 06:00 Free T4 1.19 ng/dL (0.76-1.46) 03/08/21 06:00 Urine pH 8.5 (5.0-7.0) H 03/08/21 06:17 Ur Specific [place] 1.020 (1.005-1.030) 03/08/21 06:17 Glucose (UA)(Auto) 2+ (Negative) H 03/08/21 06:17 Urine Ketones Negative (Negative) 03/08/21 06:17 Urine Blood 2+ (Negative) H 03/08/21 06:17 Urine Nitrite Negative (Negative) 03/08/21 06:17 Ur Leukocyte Esterase Trace (Negative) H 03/08/21 06:17 Urine RBC 20-50 /HPF (NONE SEEN) H 03/08/21 06:20 Urine WBC >50 /HPF (<5) H 03/08/21 06:20 Ur Squamous Epith Cells <5 /HPF (NONE SEEN) 03/08/21 06:20 Urine Bacteria None seen /HPF (NONE SEEN) 03/08/21 06:20 Urine Sperm Present (NONE SEEN) H 03/08/21 06:20 Urine Culture Reflexed Not needed 03/08/21 06:20 Urine Total Protein 3+ (Negative) H 03/08/21 06:17 Smear Scan Ok (OK) 03/08/21 06:00 Assessment And Plan - Plan Physical Exam: General: Alert, In no apparent distress, Oriented x3 HEENT: Atraumatic, Normocephalic Neck: Supple, 2+ carotid pulse no bruit Respiratory: Clear to auscultation bilaterally, Normal air movement Cardiovascular: No edema, Normal pulses, Regular rate/rhythm Capillary refill: <2 Seconds Gastrointestinal: Normal bowel sounds, Soft and benign Musculoskeletal: Other (right AKA) Conclusions/Impression: Antibiotics: Unasyn start: 03/11 stop: -- Levaquin start: 03/11 stop: -- Rocephin Start: 03/08 stop: 03/11 Assessment/plan Urosepsis Blood and urine cultures growing Enterococcus. Repeat blood cultures ordered on 03/10 shpw no growth. Patient placed on unasyn based off of susceptibility report. Blood culture from previous facility growing methicillin-susceptible staph aureus. As such will cover methicillin-susceptible Staphylococcus aureus and Enterococcus. CT abdomen and pelvis performed on 03/08 showed no obstructive uropathy, did showed mild right hydronephrosis. Epididymitis Scrotal ultrasound showed signs of epididymitis. Patient placed on Levaquin. Ultrasound ruled out testicular torsion. Possible endocarditis Trans thoracic echocardiogram showed thickening of the mitral valve, and recommend transesophageal echocardiogram to further evaluate. ESRD on HD Avoid nephrotoxic agents, continue hemodialysis Q Sunday Leukocytosis with left shift WBC down trending, and continue to monitor WBC trend and fever curve. Diabetes mellitus uncontrolled Hemoglobin A1c of 8.2, continue SSI. Strict glucose control needed for proper infection control. Medical management per primary team Continue to monitor CBC and BMP Continue to monitor for signs of infection. Plan of care discussed with Dr. Pierre Thank you for consultation Physician Review: Patient Assessed, Agree with Above Assessment and Plan
[2021-03-14] MEDS: HYDRALAZINE HCL 20 MG/ML VIAL IV PRN (12:43)
[2021-03-14] MEDS: EPOETIN ALFA 10,000 UNIT/ML VIAL SQ SCH (16:00)
--- NOTE | 2021-03-14 16:34 | P.PN ---
Date of Service: 03/14/21 Subjective: Improving, overall feeling better. Scrotal pain improving, still with some tenderness/pain Tolerating Unasyn well. No longer sleepy, no longer having tremors since 03/13 (since discontinuation of Xanax/tramadol) Review of Systems 10-point ROS is otherwise unremarkable Physical exam GEN: AAOx3, NAD HEENT: Normal conjunctiva, sclera anicteric CV: Regular rate and rhythm, trace b/l lower extremity edema Pulm: Nonlabored respiration on room air ABD: Soft, nontender, nondistended Integumentary: Bilateral inguinal intertrigo improving Right testicular tenderness or scrotal tenderness Neuro: Normal speech, normal affect Problem list Acute pyelonephritis w/ Bacteremia secondary to Enterococcus Right orchitis/epididymitis Acute encephalopathy secondary to medications DM2, insulin dependent ESRD on HD PAD, s.p AKA Hyperlipidemia GERD CAD s/p CABG b/l inguinal intertrigo Rosario inserted in ER due to reported urinary retention, discontinued 03/14, voiding trial as patient has improved Discussed case with nephrology, states blood culture obtained at dialysis center reveals gram-positive bacteria growing staph aureus Blood and urine cultures from admission growing Enterococcus, sensitivities reviewed, changed to Unasyn on 03/11. ID consulted Echocardiogram from 03/10 concerning with mitral valve leaflet thickening noted. Patient will need DEWAYNE - Discussed with cardiology, discussed with ID Continue Unasyn for Enterococcus. Levaquin started empirically, continue for added coverage of orchitis/epididymitis. Transfer to [facility] initiated, patient accepted on 03/11, awaiting callback for bed/transportation continue insulin, sliding scale Continue home Flomax, statin, aspirin Nystatin powder for inguinal intertrigo Repeat blood culture so far with no growth Suspect patient's sleepiness/somnolence is secondary to the Xanax and tramadol. He states he does get shaky/tremulous when he takes Xanax in the past. Tremors have resolved, somnolence has improved Dispo: Pending transfer to [facility]. Time Spent Managing Pts Care (In Minutes): 35
[2021-03-14] MEDS: AMPICILLIN/SULBACT 3 GM in NA CHLORIDE 0.9% 100 ML IVPB SCH (17:00)
--- NOTE | 2021-03-14 17:31 | P.PN ---
Date of Service: 03/14/21 Vital Signs Temp Pulse Resp BP Pulse Ox 97.3 F 78 16 140/58 L 98 03/14/21 16:00 03/14/21 17:00 03/14/21 16:00 03/14/21 17:00 03/14/21 16:00 Medications Acetaminophen (Acetaminophen 325 Mg Tablet) 650 mg PO Q4H PRN PRN Reason: TEMP > 100' F Last Admin: 03/13/21 22:15 Dose: 650 mg Documented by: Aspirin (Aspirin Ec 81 Mg Tab) 81 mg PO DAILY [facility] Last Admin: 03/14/21 08:49 Dose: 81 mg Documented by: Atorvastatin Calcium (Atorvastatin 10 Mg Tab) 10 mg PO BEDTIME [facility] Last Admin: 03/13/21 20:34 Dose: 10 mg Documented by: Bisacodyl (Bisacodyl E.C. 5 Mg Tab) 10 mg PO DAILYPRN PRN PRN Reason: CONSTIPATION Calcitriol (Calcitrol 0.25 Mcg Cap) 0.5 mcg PO DAILY [facility] Last Admin: 03/14/21 08:48 Dose: 0.5 mcg Documented by: Cholecalciferol (Vitamin D 5,000 Unit Cap) 5,000 unit PO DAILY [facility] Last Admin: 03/14/21 08:50 Dose: 5,000 unit Documented by: Dextrose (D50w 25 Gm/50 Ml Syringe) 12.5 gm IV PRN PRN PRN Reason: HYPOGLYCEMIA Docusate Sodium (Docusate Na 100 Mg Cap) 100 mg PO BID [facility] Last Admin: 03/14/21 08:49 Dose: 100 mg Documented by: Enteral Nutritional Formula (Nepro Shake 237 Ml Can) 237 ml PO BID [facility] Last Admin: 03/13/21 20:40 Dose: Not Given Documented by: Epoetin Tae (Epoetin Tae 10,000 Unit/Ml Vial) 10,000 unit SQ M,W,F [facility] Last Admin: 03/14/21 16:00 Dose: 10,000 unit Documented by: Furosemide (Furosemide 40 Mg Tablet) 40 mg PO DAILY [facility] Last Admin: 03/14/21 08:48 Dose: 40 mg Documented by: Glucagon (Glucagon 1 Mg/Vial) 1 mg IM 1X PRN PRN Reason: HYPOGLYCEMIA Heparin Sodium (Porcine) (Heparin 5000 Unit/Ml 1 Ml Vial) 5,000 unit SQ Q12HR [facility] Last Admin: 03/14/21 08:48 Dose: 5,000 unit Documented by: Heparin Sodium (Porcine) (Heparin 1,000 Unit/Ml Vial) 6,000 unit IV EVERY HD PRN PRN Reason: AFTER EACH Hydralazine HCl (Hydralazine Hcl 20 Mg/Ml Vial) 10 mg IV Q6HP PRN PRN Reason: Titrate to SBP >160 DBP >110 Last Admin: 03/14/21 12:43 Dose: 10 mg Documented by: Albumin Human (Albumin 25%) 50 mls @ 100 mls/hr IV EVERY HD [facility] Levofloxacin/Dextrose (Levaquin 250mg/50 Ml Ivpb) 250 mg in 50 mls @ 50 mls/hr IV Q24H [facility]; Protocol Last Admin: 03/14/21 12:00 Dose: 50 mls Documented by: Ampicillin Sodium/Sulbactam (Sodium 3 gm/ Sodium Chloride) 100 mls @ 200 mls/hr IVPB Q24H [facility] Last Admin: 03/14/21 17:00 Dose: 100 mls Documented by: Insulin Glargine (Insulin Glargine 100 Units/Ml) 24 units SQ DAILY [facility] Last Admin: 03/14/21 08:49 Dose: 24 units Documented by: Insulin Human Regular (Insulin -Regular Human 50 Unit/0.5 Ml Ml) 0 unit SQ ACHS [facility]; Protocol Last Admin: 03/14/21 16:52 Dose: 2 unit Documented by: Mannitol (Mannitol 25% 12.5 Gm/50 Ml Vial) 12.5 gm IV EVERY HD PRN PRN Reason: Titrate to SBP (MUST DEFINE) Metoprolol Tartrate (Metoprolol Tar 25 Mg Tab) 25 mg PO BID 6AM 6PM [facility] Last Admin: 03/14/21 17:00 Dose: 25 mg Documented by: Nystatin (Nystatin Pwdr [id number] Unit/Gm) 1 appl TOP BID [facility] Last Admin: 03/14/21 08:51 Dose: 1 appl Documented by: Ondansetron HCl (Ondansetron 4 Mg/2 Ml Vial) 4 mg IV Q6HP PRN PRN Reason: NAUSEA / VOMITING Last Admin: 03/09/21 05:19 Dose: 4 mg Documented by: Sodium Chloride (Flush Normal Saline 10 Ml) 10 ml IV BID [facility] Last Admin: 03/14/21 08:50 Dose: 10 ml Documented by: Tamsulosin HCl (Tamsulosin 0.4 Mg Sr Cap) 0.4 mg PO DAILY [facility] Last Admin: 03/14/21 08:48 Dose: 0.4 mg Documented by: Microbiology Results 03/08/21 06:20 Catheterized Urine Bellona Count - Final >100,000 CFU/ML. 03/08/21 06:20 Catheterized Urine - Final Enterococcus Faecalis Assessment/ Plan: Nephrology Progress Note Feeling better today and wanting to go home. No dyspnea. Good appetite. No acute events overnight Vitals, medications blood work and imaging reviewed in the chart General: Cooperative, Acute distress HEENT: Atraumatic Neck: Supple Respiratory: Clear to auscultation bilaterally Cardiovascular: No edema, Regular rate/rhythm Gastrointestinal: Non-distended, Tenderness Musculoskeletal: No clubbing, No contractures Integumentary: No rashes Neurological: Normal speech Right testicle tender Laboratory Data (last 24 hrs) 03/08/21 06:00: WBC 15.80 H, Hgb 10.1 L, Hct 29.9 L, Plt Count 348 03/08/21 06:00: Sodium 131 L, Potassium 4.9, BUN 40 H, Creatinine 7.27 H*, Glucose 334 H, Total Bilirubin 0.5, AST 11 L, ALT 19, Alkaline Phosphatase 99, Lipase 126 Imagings Data: EXAM DESCRIPTION: CT - Stone Protocol - 03/08/2021 6:54 am CLINICAL HISTORY: ABD PAIN, urinary retention, right lower quadrant pain radiating to the testicles COMPARISON: Abdomen Pelvis Wo Contrast dated 10/10/2020 TECHNIQUE: Axial 3 mm thick images were obtained without oral or IV contrast. The [id number] spans the entirety of the system including uppermost abdomen and lung bases. All CT scans are performed using dose optimization technique as appropriate and may include automated exposure control or mA/KV adjustment according to patient size. FINDINGS: Mild right-sided hydronephrosis and hydroureter present down to the UVJ level. No obstructing or nonobstructing calculi identified. Dense arterial calcifications are present. The attenuation of the fluid within the dilated right collecting system is at least 49 Hounsfield units. This would suggest blood and/or inflammatory debris to be present. No source is evident from this examination. Left-sided hydronephrosis has resolved since the October examination. No suspicious renal masses. Isodense masses and pyelonephritis are not excluded on a stone protocol CT scan. No significant adrenal finding. Urinary bladder is fully contracted around a Rosario catheter. No significant prostate gland finding seen. Imaged portions of the liver, spleen and pancreas show no suspicious findings on non-contrast imaging. No gallbladder or biliary tree abnormality identified. No suspicious bowel findings. Appendix is normal. Contrast material in the colon is presumed to be from outside examination. This could potentially be medication containing bismuth or other hyperdense material. No hernia, mass or bulky lymphadenopathy noted. No free air, free fluid or pneumatosis. Perinephric stranding is present on each kidney similar to comparison. Bony degenerative changes are present similar to comparison. IMPRESSION: Mild right-sided hydronephrosis down to the UVJ level without obstructing calculus identifiable. Urine within the right collecting system is hyperdense which would indicate the presence of blood and/or inflammatory debris. Source full blood is not evident. This could be from a small mass, infection or recently passed stone. Isodense masses and pyelonephritis are not excluded on stone protocol technique. Conclusions/Impression: ESRD Proteinuria -HD TIW Hyponatremia -HD TIW HTN with CKD/ CHF complicated by hypotension -Continue Metoprolol BID Diastolic CHF, chronic -HD TIW with UF DM II with CKD, Polyneuropathy & Hyperglycemia -Continue Lantus -RISS Anemia in chronic illness -Continue Retacrit TIW CKD MBD -Continue Calcitriol and Vitamin D3 Right hydroureter and hydronephrosis to the UVJ Pyelonephritis Sepsis/ Septic shock -Continue Unasyn and Levaquin -Continue Flomax -Repeat Renal US reviewed -Plan for DEWAYNE Right testicular pain -Scrotal US reviewed Case reviewed with Dr. Hastings Plan to transfer for DEWAYNE
[2021-03-14] MEDS: ATORVASTATIN 10 MG TAB PO SCH (20:39)
[2021-03-14 20:54] VITALS: BP 115/50; TEMP 98
[2021-03-14 21:57] VITALS: O2SAT 93
== END 2021-03-15 00:09 | disposition short-term general hospital (02) | DRG 871 ==
LOC: ER 05:30 → ERHOLD 09:01 → 2ND 13:36
PROVIDERS: ADMIT Hospitalist; ATTEND Hospitalist
PROC: 5A1D70Z Performance of Urinary Filtration, Intermittent, Less than 6 Hours Per Day (ICD-10-PCS; principal; 2021-03-10)
PROC: 5A1D70Z Performance of Urinary Filtration, Intermittent, Less than 6 Hours Per Day (ICD-10-PCS; 2021-03-12)
DX: A41.9 Sepsis, unspecified organism (principal); N18.6 End stage renal disease; G92.8 Other toxic encephalopathy; I13.2 Hypertensive heart and chronic kidney disease with heart failure and with stage 5 chronic kidney disease, or end stage renal disease; N13.30 Unspecified hydronephrosis; Z94.0 Kidney transplant status; I50.32 Chronic diastolic (congestive) heart failure; E87.1 Hypo-osmolality and hyponatremia; I38 Endocarditis, valve unspecified; N10 Acute pyelonephritis; E11.22 Type 2 diabetes mellitus with diabetic chronic kidney disease; E11.65 Type 2 diabetes mellitus with hyperglycemia; E11.42 Type 2 diabetes mellitus with diabetic polyneuropathy; I25.10 Atherosclerotic heart disease of native coronary artery without angina pectoris; E78.5 Hyperlipidemia, unspecified; R33.9 Retention of urine, unspecified; N40.0 Benign prostatic hyperplasia without lower urinary tract symptoms; K21.9 Gastro-esophageal reflux disease without esophagitis; I95.9 Hypotension, unspecified; D63.8 Anemia in other chronic diseases classified elsewhere; L30.4 Erythema intertrigo; B95.2 Enterococcus as the cause of diseases classified elsewhere; N45.3 Epididymo-orchitis; R40.0 Somnolence; T42.4X5A Adverse effect of benzodiazepines, initial encounter; T40.425A Adverse effect of tramadol, initial encounter; G25.1 Drug-induced tremor; Z89.611 Acquired absence of right leg above knee; Z99.2 Dependence on renal dialysis; Z95.1 Presence of aortocoronary bypass graft; Z20.822 Contact with and (suspected) exposure to COVID-19
CPT/HCPCS: 36415; 51702; 71045; 74176; 76377; 76770; 76870; 80048; 80053; 80061; 80076; 81003; 81015; 82140; 82947; 83036; 83690; 83735; 84100; 84439; 84443; 84550; 85025; 85652; 87040; 87077; 87086; 87088; 87186; 87205; 90935; 93306; 96374; 96375; 99285; J0295; J0360; J0696; J1644; J1815; J2405; J7030; J7040; J7050; Q5105; Q5106; U0003

== ENCOUNTER 2024-07-23 20:44 | Emergency (ER) | payer BC, OTHER ==
--- NOTE | 2024-07-23 21:26 | RAD REPORT ---
EXAM: XR RIGHT HAND HISTORY: Pain. PAIN COMPARISON: None TECHNIQUE: Multiple projections of the right hand submitted. FINDINGS: Small metallic foreign body is seen in the soft tissues of the second finger proximally. Ino ny avulsion is noted at the level of the PIP joint of the second digit.. Vascular atherosclerosis. Demineralization of the distal aspect of the middle phalanx of the second finger likely represents os teomyelitis.
[2024-07-23] MEDS ORDERED: HYDROCODONE/APAP 7.5/325 MG TAB ONE (22:15)
[2024-07-23] MEDS ORDERED: NA CHLORIDE 0.9% 100 ML ONE (23:46)
[2024-07-23] MEDS ORDERED: CLINDAMYCIN 600MG/D5W 50 ML IV ONE (23:46)
[2024-07-23] MEDS ORDERED: CEFEPIME 1 GM/VIAL ONE (23:47)
[2024-07-24 00:24] LABS: PT Prothrombin Time 11.4 SECONDS (9.4-12.5); PTT, Activated Partial Thromb 28.6 SECONDS (24.3-36.9); Protime INR 1.09
[2024-07-24 00:38] LABS: Absolute Basophils 0.1 K/uL (0-0.5); Absolute Eosinophils 0.3 K/uL (0-0.5); Absolute Lymphocytes (CBC) 0.8 K/uL (0.7-4.9); Absolute Monocytes 0.6 K/uL (0.1-1.3); Absolute Neutrophil 5.9 K/uL (1.8-8.0); Eosinophils % 4.5 % (0-4.4); Hematocrit 24.3 % (39.6-49.0); Hemoglobin 8.2 g/dL (13.6-17.9); Lymphocytes % 10.1 % (15.3-44.8); MCH 33.1 pg (27.0-35.0); MCHC 33.7 g/dL (32.0-36.0); MCV 98.3 fL (80-100); MPV 6.3 fL (7.6-11.3); Monocytes % 7.5 % (3.3-12.3); Neutrophils % 76.9 % (41.7-73.7); Nucleated Red Blood Cells % 0.1 % (0-0); Platelets 296 thou/uL (152-406); RBC Red Blood Cell Count 2.47 M/uL (4.33-5.43); Red Cell Distribution Width 17.1 % (12.1-15.2)
[2024-07-24 00:40] LABS: Albumin 3.2 g/dL (3.4-5.0); Albumin/Globulin Ratio 0.7 (1.1-1.8); Anion Gap 10.3 mEq/L (5.0-15.0); Bilirubin Total 0.3 mg/dL (0.2-1.0); Globulin 4.3 g/dL (2.3-3.5); Potassium 4.3 mEq/L (3.5-5.1); Protein, Total 7.5 g/dL (6.4-8.2)
--- NOTE | 2024-07-24 01:29 | ER ---
Nurse's Notes [facility] Name: Homer Bradshaw Age: 64 yrs Sex: Male : 1960 Arrival Date: 07/23/2024 Time: 20:44 Bed 16 Private MD: Diagnosis: Osteomyelitis, unspecified;Right index finger middle phalanx Osteomyelitis , ESRD on Hemodialysis , diabetes mellitus type 2 with peripheral vascular disease, Right Index Finger Necrotic Skin lesion Presentation: 07/23 21:04 Chief complaint: Patient states: pinched right first finger, pulling the skin back on me1 04/29/24. Color of finger started to turn purple and then black about 2-3 weeks ago and it started to burn at that time. Hx DM and ESRD on HD M,W,F. Coronavirus screen: Vaccine status: Patient reports receiving the 2nd dose of the covid vaccine. Ebola Screen: No symptoms or risks identified at this time. Initial Sepsis Screen: Does the patient meet any 2 criteria? No. Patient's initial sepsis screen is negative. Does the patient have a suspected source of infection? No. Patient's initial sepsis screen is negative. Risk Assessment: Do you want to hurt yourself or someone else? Patient reports no desire to harm self or others. Onset of symptoms was April 29, 2024. 21:04 Method Of Arrival: [place] [facility] [place] 21:04 Acuity: MICHELLE 3 me1 Triage Assessment: 07/24 01:30 Injury Description: necrotic skin lesion. rg5 01:30 General: Appears in no apparent distress. comfortable, Behavior is calm, cooperative, rg5 appropriate for age. Pain: Complains of pain in dorsal aspect of distal phalanx of right index finger. EENT: No deficits noted. Neuro: Level of Consciousness is awake, alert, Oriented to person, place, time. Cardiovascular: Denies chest pain, Heart tones S1 S2 Patient's skin is warm and dry. Rhythm is regular. Respiratory: Airway is patent Trachea midline Respiratory effort is even, unlabored, Respiratory pattern is regular, symmetrical. GI: Abdomen is round non-distended. : No signs and/or symptoms were reported regarding the genitourinary system. Derm: No signs and/or symptoms reported regarding the dermatologic system. Musculoskeletal: Circulation, motion, and sensation intact. Range of motion: intact in all extremities. Historical: - Allergies: 07/23 21:08 Vancomycin; me1 - PMHx: 21:08 Diabetes - IDDM; Dialysis; Hypertension; End stage renal disease; me1 - PSHx: 21:08 Coronary Angioplasty; triple bypass; right AKA; me1 - Immunization history:: Adult Immunizations up to date. - Infectious Disease History:: Denies. - Social history:: Smoking status: Patient/guardian denies using tobacco, but has a distant history of tobacco abuse. Screenin:12 [facility] ED Fall Risk Assessment (Adult) History of falling in the last 3 months, rg5 including since admission No falls in past 3 months (0 pts) Confusion or Disorientation No (0 pts) Intoxicated or Sedated No (0 pts) Impaired Gait No (0 pts) Mobility Assist Device Used Yes (1 pt) Altered Elimination No (0 pt) Score/Fall Risk Level 0 - 2 = Low Risk Oriented to surroundings, Maintained a safe environment, Hourly rounding (assess needs \T\ fall precautionary measures) done. Abuse screen: Denies threats or abuse. Nutritional screening: No deficits noted. Tuberculosis screening: No symptoms or risk factors identified. Assessment: 23:12 General: Appears in no apparent distress. comfortable, Behavior is calm, cooperative. rg5 Pain: Complains of pain in right index fingernail Quality of pain is described as aching. Neuro: Level of Consciousness is awake, alert, obeys commands, Oriented to person, place, time, situation. Cardiovascular: Denies chest pain. Respiratory: Airway is patent Trachea midline Respiratory effort is even, unlabored, Respiratory pattern is regular, symmetrical. GI: Abdomen is round non-distended. : No signs and/or symptoms were reported regarding the genitourinary system. EENT: No signs and/or symptoms were reported regarding the EENT system. Derm: Skin is intact, Skin is normal. Musculoskeletal: Circulation, motion, and sensation intact. Range of motion: intact in all extremities. 07/24 00:00 Reassessment: No changes from previously documented assessment. Patient and/or family rg5 updated on plan of care and expected duration. Pain level reassessed. Patient is alert, oriented x 3, equal unlabored respirations, skin warm/dry/pink. 01:00 Reassessment: No changes from previously documented assessment. Patient and/or family rg5 updated on plan of care and expected duration. Pain level reassessed. Patient is alert, oriented x 3, equal unlabored respirations, skin warm/dry/pink. 02:10 Reassessment: No changes from previously documented assessment. Patient and/or family rg5 updated on plan of care and expected duration. Pain level reassessed. Patient is alert, oriented x 3, equal unlabored respirations, skin warm/dry/pink. 03:00 Reassessment: Patient and/or family updated on plan of care and expected duration. Pain rg5 level reassessed. Patient is alert, oriented x 3, equal unlabored respirations, skin warm/dry/pink. Patient denies pain at this time. Patient states feeling better. Vital Signs: 07/23 21:04 BP 132 / 42; Pulse 86; Resp 16; Temp 98.3; Pulse Ox 97% ; Weight 97.52 kg; Height 6 ft. me1 1 in. ; Pain 6/10; 23:11 BP 132 / 38; Pulse 85; Resp 17; Temp 98; Pulse Ox 99% on R/A; rg5 07/24 01:30 BP 100 / 33; Pulse 71; Resp 18; Pulse Ox 97% on R/A; Pain 7/10; rg5 02:00 BP 99 / 68; Pulse 88; Resp 18; Pulse Ox 97% on R/A; Pain 0/10; rg5 03:00 BP 117 / 46; Pulse 83; Resp 17; Pulse Ox 98% on R/A; Pain 0/10; rg5 12 21:04 Body Mass Index 28.37 (97.52 kg, 185.42 cm) oh1 07/23 21:04 Pain Scale: Adult oh1 07/24 01:30 Pain Scale: Adult rg5 02:00 Pain Scale: Adult rg5 03:00 Pain Scale: Adult rg5 [place] Coma Score: 02:03 Eye Response: spontaneous(4). Motor Response: obeys commands(6). Verbal Response: sp4 oriented(5). Total: 15. ED Course: 07/23 20:55 Patient arrived in ED. jj6 20:57 Zahida Parker FNP-C [facility]. kb 20:57 Carlos Deleon MD is Attending Physician. kb 21:08 Triage completed. oh1 21:08 Arm band placed on Patient placed in waiting room. me1 21:21 Hand Right 3 View XRAY In Process Unspecified. EDMS 23:10 Dez Maharaj, RN is Primary Nurse. rg5 23:12 Patient has correct armband on for positive identification. Door closed. Noise rg5 minimized. Verbal reassurance given. 23:12 No provider procedures requiring assistance completed. rg5 07/24 01:26 initiated transfer with maryanne ruvalcaba. kmf 02:37 Provided Education on: needs for transfer. rg5 02:37 Patient transferred, IV remains in place. intact, No redness/swelling at site. rg5 03:[address] [facility] room [address]. Accept[address] Campo \T\[id number]. Maryanne Ruvalcaba gave acceptance \T\ km f [id number]. [phone] [facility] to transfer pt once nurse to nurse is complete. Administered Medications: 07/23 22:20 Drug: Hydrocodone-Acetaminophen PO (7.5 mg-325 mg) 1 tabs PO once Route: PO; me1 23:53 Follow up: Response: No adverse reaction; Pain is decreased rg5 23:45 Drug: Clindamycin IVPB 600 mg IVPB once over 30 mins; (mix in 50 mL) Route: IVPB; rg5 Infused Over: 30 mins; Site: left antecubital; 07/24 00:10 Follow up: IV Status: Completed infusion; IV Intake: 50ml rg5 00:00 Drug: Cefepime IVPB 1 grams IVPB at 200 ml/hr once over 30 mins; (mix in NS 100 mL) rg5 Route: IVPB; Rate: 200 ml/hr; Infused Over: 30 mins; Site: left antecubital; 01:36 Follow up: IV Status: Completed infusion; IV Intake: 100ml rg5 01:48 Drug: HYDROcodone-acetaminophen PO 5 mg-325 mg 2 tabs PO once Route: PO; rg5 02:12 Follow up: Response: No adverse reaction; Pain is decreased rg5 01:48 Drug: Ondansetron PO 4 mg PO once Route: PO; rg5 02:12 Follow up: Response: No adverse reaction rg5 Medication: 07/23 23:12 VIS not applicable for this client. rg5 Intake: 07/24 00:10 IV: 50ml; Total: 50ml. rg5 01:36 IV: 100ml; Total: 150ml. rg5 Outcome: 01:29 ER care complete, transfer ordered by . sp4 03:00 [place] [facility] [facility] [place] 03:00 Condition: stable 03:00 Instructed on the need for transfer, 03:08 Patient left the ED. rg5 Signatures: Dispatcher [employer] EDZahida Johnson, ROLL TENSION TESTER-C ROLL TENSION TESTER-CkJillian Tony Sergey, MD MD sp4 Nancy Hilario, RN RN me1 Jen Ambrosio [facility] Dez Maharaj RN RN rg5 Corrections: (The following items were deleted from the chart) 07/23 21:09 21:08 Social history: Smoking status: Patient denies any tobacco usage or history of. me1 me1 07/24 02:37 02:00 BP 99 / 38; Pulse 88bpm; Resp 18bpm; Pulse Ox 97% RA; Pain 0/10, Adult; rg5 rg5
--- NOTE | 2024-07-24 01:29 | EDPHYS ---
Physician Documentation [facility] Name: Homer Bradshaw Age: 64 yrs Sex: Male : 1960 Arrival Date: 07/23/2024 Time: 20:44 Bed 16 Private MD: ED Physician Carlos Deleon HPI: 07/23 23:48 This 64 yrs old Male presents to ER via Wheelchair with complaints of Finger kb Injury. 23:48 Pt is a 64 year old male who presents for pain to right index finger. States he kb initially injured it on April 28, 2024. States his finger got pinched when trying to put on his prosthetic leg. States he put the skin back in place and has been keeping it clean and "doctored." Reports it started getting dark about 3 weeks ago and the pain has been increasing so that is what made him come in today. Denies fever, chills. Historical: - Allergies: 21:08 Vancomycin; me1 - PMHx: 21:08 Diabetes - IDDM; Dialysis; Hypertension; End stage renal disease; me1 - PSHx: 21:08 Coronary Angioplasty; triple bypass; right AKA; me1 - Immunization history:: Adult Immunizations up to date. - Infectious Disease History:: Denies. - Social history:: Smoking status: Patient/guardian denies using tobacco, but has a distant history of tobacco abuse. ROS: 23:46 Constitutional: As per HPI kb Exam: 23:46 Constitutional: This is a well developed, well nourished patient who is awake, alert, kb and in no acute distress. Head/Face: Normocephalic, atraumatic. ENT: Moist Mucous membranes Cardiovascular: Regular rate Respiratory: Respirations even and unlabored. No increased work of breathing. Talking in full sentences Neuro: Awake and alert, GCS 15, oriented to person, place, time, and situation. 23:46 Musculoskeletal/extremity: Extremities: grossly normal except: noted in the dorsal aspect of distal phalanx of right index finger and dorsal aspect of middle phalanx of right index finger: erythema, pain, wound with eschar , 07/24 02:03 Constitutional: Chronically ill-appearing male, nontoxic, stigmata of chronic kidney sp4 disease, right upper arm dialysis fistula, right hand index finger necrotic lesion of distal finger spanning distal and middle phalanx mostly dorsal surface. Head/Face: Normocephalic, atraumatic. Eyes: Pupils equal round and reactive to light, extra-ocular motions intact. Lids and lashes normal. Conjunctiva and sclera are not injected. Cornea within normal limits. Periorbital areas with no swelling, redness, or edema. ENT: Nares patent. No nasal discharge, no septal abnormalities noted. Tympanic membranes are normal and external auditory canals are clear. Oropharynx with no redness, swelling, or masses, exudates, or evidence of obstruction, uvula midline. Mucous membranes moist. Neck: Trachea midline, no thyromegaly or masses palpated, and no cervical lymphadenopathy. Supple, full range of motion without nuchal rigidity, or vertebral point tenderness. Chest/axilla: Normal chest wall appearance and motion. Nontender with no deformity. No lesions are appreciated. Cardiovascular: Regular rate and rhythm with a normal S1 and S2. No gallops, murmurs, or rubs. Normal PMI, no JVD. No pulse deficits. Respiratory: Lungs have equal breath sounds bilaterally, clear to auscultation and percussion. No rales, rhonchi or wheezes noted. No increased work of breathing, no retractions or nasal flaring. Abdomen/GI: Soft, with normal bowel sounds. No distension or tympany. No guarding or rebound. No evidence of tenderness throughout. Back: No spinal tenderness. No costovertebral tenderness. Skin: Warm, dry with normal turgor. Normal color with no rashes, no lesions, and no evidence of cellulitis. MS/ Extremity: Pulses equal, no cyanosis. Neurovascular intact. Full, normal range of motion. 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 Neuro: Awake and alert, GCS 15, oriented to person, place, time, and situation. Cranial nerves II-XII grossly intact. Motor strength 5/5 in all extremities. Sensory grossly intact. Vital Signs: 07/23 21:04 BP 132 / 42; Pulse 86; Resp 16; Temp 98.3; Pulse Ox 97% ; Weight 97.52 kg; Height 6 ft. me1 1 in. ; Pain 6/10; 23:11 BP 132 / 38; Pulse 85; Resp 17; Temp 98; Pulse Ox 99% on R/A; rg5 07/24 01:30 BP 100 / 33; Pulse 71; Resp 18; Pulse Ox 97% on R/A; Pain 7/10; rg5 02:00 BP 99 / 68; Pulse 88; Resp 18; Pulse Ox 97% on R/A; Pain 0/10; rg5 03:00 BP 117 / 46; Pulse 83; Resp 17; Pulse Ox 98% on R/A; Pain 0/10; rg5 07/23 21:04 Body Mass Index 28.37 (97.52 kg, 185.42 cm) ks1 07/23 21:04 Pain Scale: Adult me1 07/24 01:30 Pain Scale: Adult rg5 02:00 Pain Scale: Adult rg5 03:00 Pain Scale: Adult rg5 Raudel Coma Score: 02:03 Eye Response: spontaneous(4). Motor Response: obeys commands(6). Verbal Response: sp4 oriented(5). Total: 15. MDM: 07/23 20:57 Medical Screening Exam initiated kb 23:47 Differential diagnosis: cellulitis, fracture, osteomyelitis. Data reviewed: vital kb signs, nurses notes. Consideration of Admission/Observation Escalation of care including admission/observation considered. admission considered but pt will be transferred for hand specialist. Management of patient was discussed with the following: Director [facility]: Dr Edward, recommends transfer for hand surgeon. Historians other than the Patient: Daughter/Son: daughter. Care significantly affected by the following chronic conditions: Diabetes, Chronic Kidney Disease. Counseling: I had a detailed discussion with the patient and/or guardian regarding the historical points, exam findings, and any diagnostic results supporting the discharge/admit diagnosis, radiology results, the need to transfer to another facility, [facility] does not immediately have the required specialist. 07/24 01:29 ED course: EXAM: XR RIGHT HAND HISTORY: Pain. PAIN COMPARISON: None TECHNIQUE: Multiple sp4 projections of the right hand submitted. FINDINGS: Small metallic foreign body is seen in the soft tissues of the second finger proximally. Bony avulsion is noted at the level of the PIP joint of the second digit.. Vascular atherosclerosis. Demineralization of the distal aspect of the middle phalanx of the second finger likely represents osteomyelitis. . 07/23 21:08 Order name: Blood Culture Adult (2) kb 07/23 21:08 Order name: CBC with Diff; Complete Time: 01:20 kb 07/23 21:08 Order name: CMP; Complete Time: 01:20 kb 07/23 21:08 Order name: Lactate w/ 2H reflex if indic.; Complete Time: 00:27 kb 07/23 21:08 Order name: Protime (+inr); Complete Time: 00:24 kb 07/23 21:08 Order name: Ptt, Activated; Complete Time: 00:24 kb 07/23 21:08 Order name: Hand Right 3 View XRAY; Complete Time: 21:28 kb Administered Medications: 07/23 22:20 Drug: Hydrocodone-Acetaminophen PO (7.5 mg-325 mg) 1 tabs PO once Route: PO; me1 23:53 Follow up: Response: No adverse reaction; Pain is decreased rg5 23:45 Drug: Clindamycin IVPB 600 mg IVPB once over 30 mins; (mix in 50 mL) Route: IVPB; rg5 Infused Over: 30 mins; Site: left antecubital; 07/24 00:10 Follow up: IV Status: Completed infusion; IV Intake: 50ml rg5 00:00 Drug: Cefepime IVPB 1 grams IVPB at 200 ml/hr once over 30 mins; (mix in NS 100 mL) rg5 Route: IVPB; Rate: 200 ml/hr; Infused Over: 30 mins; Site: left antecubital; 01:36 Follow up: IV Status: Completed infusion; IV Intake: 100ml rg5 01:48 Drug: HYDROcodone-acetaminophen PO 5 mg-325 mg 2 tabs PO once Route: PO; rg5 02:12 Follow up: Response: No adverse reaction; Pain is decreased rg5 01:48 Drug: Ondansetron PO 4 mg PO once Route: PO; rg5 02:12 Follow up: Response: No adverse reaction rg5 Disposition: 01:25 Co-signature as Attending Physician, Carlos Deleon MD I agree with the assessment sp4 and plan of care. I reviewed the patient's care provided by Advanced Practice Provider \\T\\ agree w/ the diagnosis \\T\\ care plan. I personally saw the pt \\T\\ performed a substantive portion of the visit, incldng all aspects of the (History/Exam/Medical Decision Making). Disposition Summary: 07/24/24 01:29 Transfer Ordered Notes: Transfer Location: [facility] sp4 Reason: Higher level of care sp4 Condition: Stable sp4 Problem: new sp4 Symptoms: have improved sp4 Accepting Physician: Accepting at [facility](07/24/24 03:08) rg5 Diagnosis - Osteomyelitis, unspecified sp4 - Right index finger middle phalanx Osteomyelitis , ESRD on Hemodialysis , sp4 diabetes mellitus type 2 with peripheral vascular disease, Right Index Finger Necrotic Skin lesion Forms: - Medication Reconciliation Form sp4 - SBAR form sp4 Signatures: Dispatcher [employer] EDZahida Johnson, MARLON-C [employer]-Carlos Ferraro MD MD sp4 Nancy Hilario, RN RN me1 Dez Maharaj, RN RN rg5 Corrections: (The following items were deleted from the chart) 07/23 21:08 21:08 BLOOD CULTURE*+BA.LAB.BRZ ordered. EDHI EDHI 21:08 21:08 CBC+H.LAB.BRZ ordered. EDHI EDHI 21:08 21:08 COMPREHENSIVE METABOLIC PANEL+C.LAB.BRZ ordered. [facility] EDHI 21:08 21:08 LACTATE+C.LAB.BRZ ordered. [facility] EDHI 21:08 21:08 PROTIME (+INR)+COAG.LAB.BRZ ordered. [facility] EDHI 21:08 21:08 PTT, ACTIVATED+COAG.LAB.BRZ ordered. [facility] EDHI 21:09 21:08 Social history: Smoking status: Patient denies any tobacco usage or history of. me1 me1 21:11 21:08 Accucheck ordered. kb kb 21:11 21:08 Cardiac monitoring ordered. kb kb 21:11 21:08 EKG - Nurse/Tech ordered. kb kb 21:11 21:08 IV Saline Lock - Large Bore ordered. kb kb 21:11 21:08 Labs collected and sent ordered. kb kb 21:11 21:08 Oxygen Per Protocol ordered. kb kb 21: 21:08 O2 Sat Monitoring ordered. kb kb 21:11 21:08 Vital Signs ordered. kb kb 07/24 03:08 01:29 Accepting MD at [facility] sp4 rg5
[2024-07-24] MEDS ORDERED: ONDANSETRON 4 MG (ODT) TAB ONE (01:38)
[2024-07-24] MEDS ORDERED: HYDROCODONE/APAP 5/325 MG TAB ONE (01:39)
[2024-07-24 03:20] VITALS: TEMP 98
[2024-07-24 03:24] VITALS: BP 117/46; O2SAT 98
== END 2024-07-24 03:08 | disposition short-term general hospital (02) ==
LOC: ER 20:44
DX: E11.69 Type 2 diabetes mellitus with other specified complication (principal); M86.9 Osteomyelitis, unspecified; E11.52 Type 2 diabetes mellitus with diabetic peripheral angiopathy with gangrene; I96 Gangrene, not elsewhere classified; E11.22 Type 2 diabetes mellitus with diabetic chronic kidney disease; I12.0 Hypertensive chronic kidney disease with stage 5 chronic kidney disease or end stage renal disease; N18.6 End stage renal disease; Z99.2 Dependence on renal dialysis; Z95.1 Presence of aortocoronary bypass graft; Z89.611 Acquired absence of right leg above knee
CPT/HCPCS: 96365; 87040 ×2; 85025; 36415; 85610; 83605; 85730; 80053; 73130; 99285; Q0162; J0692

== ENCOUNTER 2024-10-01 16:54 | Observation (INO) | payer OTHER ==
[2024-10-01 17:39] LABS: Absolute Eosinophils 0.2 K/uL (0-0.5); Absolute Lymphocytes (CBC) 0.5 K/uL (0.7-4.9); Absolute Monocytes 0.5 K/uL (0.1-1.3); Absolute Neutrophil 5.9 K/uL (1.8-8.0); Basophils % 0.6 % (0-1.3); Eosinophils % 3.1 % (0-4.4); Hematocrit 20.3 % (39.6-49.0); Hemoglobin 6.9 g/dL (13.6-17.9); MCH 33.4 pg (27.0-35.0); MCV 98.4 fL (80-100); MPV 6.5 fL (7.6-11.3); Monocytes % 6.6 % (3.3-12.3); Neutrophils % 82.7 % (41.7-73.7); Platelets 310 thou/uL (152-406); RBC Red Blood Cell Count 2.07 M/uL (4.33-5.43); Red Cell Distribution Width 20.3 % (12.1-15.2)
[2024-10-01 17:46] LABS: PT Prothrombin Time 12.2 SECONDS (10-13.0); Protime INR 1.07
[2024-10-01 17:59] LABS: ALT/SGPT 15 U/L (16-61); AST/SGOT 20 U/L (15-37); Albumin/Globulin Ratio 0.8 (1.1-1.8); Alkaline Phosphatase 89 U/L (45-117); Anion Gap 11.4 mEq/L (5.0-15.0); BUN Blood Urea Nitrogen 26 mg/dL (7-18); Bicarbonate 26 mEq/L (21-32); Bilirubin Direct < 0.2 mg/dL (0-0.2); Bilirubin Indirect, Calculated 0.1 mg/dL (0.2-0.8); Bilirubin Total 0.3 mg/dL (0.2-1.0); Glomerular Filtration Rate 12 ml/min (=/>90); Glucose Level 160 mg/dL (74-106); Magnesium 1.9 mg/dL (1.6-2.4); NT PRO-BNP 25063 pg/mL (<125); Potassium 4.4 mEq/L (3.5-5.1); Sodium Level 134 mEq/L (136-145)
[2024-10-01 18:01] LABS: Troponin High Sensitivity 132.6 pg/mL (<58.9)
--- NOTE | 2024-10-01 18:23 | RAD REPORT ---
EXAM: Chest Single View HISTORY: 64 years Male MALAISE COMPARISON: 03/11/2021 FINDINGS: LUNGS/PLEURA: Diffuse prominence of the pulmonary interstitium which is likely accentuated by low partha g volumes. Possible small left effusion. CARDIAC/MEDIASTINUM: Stable enlargement. UPPER ABDOMEN: No significant abnormality. BONES: Sternotomy. No acute abnormality. LINES/TUBES/OTHER: N/A IMPRESSION: Low lung volumes which accentuates pulmonary vasculature though mild pulmonary edema difficult to exc lude.
--- NOTE | 2024-10-01 18:51 | ER ---
Nurse's Notes [facility] Name: Homer Bradshaw Age: 64 yrs Sex: Male : 1960 Arrival Date: 10/01/2024 Time: 16:54 Bed 13 Private MD: Diagnosis: Anemia, end-stage renal disease, volume overload Presentation: 10/01 17:15 Chief complaint: Patient states: had an episode on September 13 where he was dizzy and weak, iw had low BP, he is having similar symptoms today after dialysis , last time he need a blood transfusion , he feels weak and disoriented. Coronavirus screen: At this time, the client does not indicate any symptoms associated with coronavirus-19. Ebola Screen: No symptoms or risks identified at this time. Initial Sepsis Screen: Does the patient meet any 2 criteria? No. Patient's initial sepsis screen is negative. Does the patient have a suspected source of infection? No. Patient's initial sepsis screen is negative. Risk Assessment: Do you want to hurt yourself or someone else? Patient reports no desire to harm self or others. 17:15 Method Of Arrival: Wheelchair iw 17:15 Acuity: MICHELLE 2 iw 17:17 Onset of symptoms was October 01, 2024. iw Historical: - Allergies: 17:18 Vancomycin; iw - PMHx: 17:18 End stage renal disease; Diabetes - IDDM; Dialysis; Hypertension; iw - PSHx: 17:18 Coronary Angioplasty; right AKA; triple bypass; iw - Immunization history:: Adult Immunizations unknown. - Infectious Disease History:: Denies. - Social history:: Smoking status: Patient denies any tobacco usage or history of. Screenin:16 [facility] ED Fall Risk Assessment (Adult) History of falling in the last 3 months, db including since admission No falls in past 3 months (0 pts) Confusion or Disorientation No (0 pts) Intoxicated or Sedated No (0 pts) Impaired Gait No (0 pts) Mobility Assist Device Used No (0 pt) Altered Elimination No (0 pt) Score/Fall Risk Level 0 - 2 = Low Risk Oriented to surroundings, Maintained a safe environment. Abuse screen: Denies threats or abuse. Denies injuries from another. Nutritional screening: No deficits noted. Tuberculosis screening: No symptoms or risk factors identified. Assessment: 17:55 Reassessment: Patient appears in no apparent distress at this time. Patient and/or db family updated on plan of care and expected duration. Pain level reassessed. Patient is alert, oriented x 3, equal unlabored respirations, skin warm/dry/pink. General: Appears in no apparent distress. comfortable, Behavior is calm, cooperative. Pain: Denies pain. Neuro: Level of Consciousness is awake, alert, obeys commands, Oriented to person, place, time, situation. Respiratory: Airway is patent Respiratory effort is even, unlabored, Respiratory pattern is regular, symmetrical. 18:40 Reassessment: PT SIGNED CONSENT. CONSENT IS ON CHART. db 20:13 General: Appears in no apparent distress. comfortable, Behavior is calm, cooperative. mb12 Pain: Complains of pain in palmar aspect of distal phalanx of right index finger and palmar aspect of middle phalanx of right index finger Pain currently is 7 out of 10 on a pain scale. Neuro: No deficits noted. Level of Consciousness is awake, alert, obeys commands, Oriented to person, place, time, situation. Respiratory: No deficits noted. Airway is patent Respiratory effort is even, unlabored, Respiratory pattern is regular, symmetrical. GI: No deficits noted. Vital Signs: 17:15 Resp 16 S; Temp 98.5(O); iw 17:17 BP 89 / 28; Pulse 66; Resp 16; Temp 98.7; Pulse Ox 95% on R/A; Weight 98.88 kg; Height iw 6 ft. 1 in. ; 18:00 BP 97 / 33; Pulse 63; Resp 16; Pulse Ox 96% on R/A; db 18:30 BP 99 / 32; Pulse 65; Resp 20; Pulse Ox 96% ; db 20:13 BP 90 / 34; Pulse 69; Resp 17; Temp 98.5; Pulse Ox 96% ; mb12 20:25 BP 90 / 34; Pulse 69; Resp 17; Pulse Ox 96% ; mb12 20:40 BP 103 / 34; Pulse 34; Resp 18; Temp 98.5; Pulse Ox 95% ; mb12 21:25 BP 111 / 39; Pulse 68; Resp 17; Temp 98.7; Pulse Ox 95% ; mb12 17:17 Body Mass Index 28.76 (98.88 kg, 185.42 cm) iw ED Course: 16:59 Patient arrived in ED. im 17:04 Louise Lou MD is Attending Physician. sp3 17:17 Triage completed. iw 17:18 Arm band placed on. iw 17:55 Carlene Pendleton, RN is Primary Nurse. db 18:00 Inserted saline lock: 20 gauge in left wrist, using aseptic technique. Blood collected. db Flushed with 10 mL NS. 18:00 EKG done, reviewed by Louise Lou MD. db 18:01 Notified ED physician of a critical lab result(s). troponin 132.6, Dr. Lou. ll1 18:09 XRAY Chest (1 view) In Process Unspecified. EDMS 18:50 Francisco Walker MD is Hospitalizing Provider. sp3 Administered Medications: 21:00 Drug: Acetaminophen PO 650 mg PO once Route: PO; vc1 Medication: 18:17 VIS not applicable for this client. db Outcome: 18:51 Decision to Hospitalize by Provider. sp3 22:31 Patient left the ED. hb Signatures: Dispatcher [employer] EDFL Sowmya Nath RN RN Dang Griffiths RN RN Laura Hagen RN RN ll1 Louise Lou MD MD sp3 Christianne Villalobos RN RN vc1 Carlene Pendleton, RN RN db Janene Alvarez Rupesh Cheung mb12 Corrections: (The following items were deleted from the chart) 17:19 17:17 Pulse 66bpm; Resp 16bpm; Pulse Ox 95% RA; iw iw 21:52 20:40 BP 90 / 34; Pulse 69bpm; Resp 17bpm; Pulse Ox 96%; mb12 mb12
--- NOTE | 2024-10-01 18:51 | EDPHYS ---
Physician Documentation [facility] Name: Homer Bradshaw Age: 64 yrs Sex: Male : 1960 Arrival Date: 10/01/2024 Time: 16:54 Bed 13 Private MD: ED Physician Louise Lou HPI: 10/01 18:36 This 64 yrs old Male presents to ER via Wheelchair with complaints of low sp3 blood pressure, General Weakness. 18:36 64-year-old male with history of end-stage renal disease on dialysis with last dialysis sp3 today, diabetes, hypertension now presents with recurrent feelings of generalized weakness and concerns about l medical history low hemoglobin. Approximately 4 weeks ago he was in. 18:45 64-year-old male with history of end-stage renal disease with last dialysis today, sp3 diabetes, hypertension presents with generalized weakness. Patient had a similar episode approximate 1 month ago while traveling in [place] where he received a blood transfusion. GI workup there was negative in terms of stool occult blood samples. Clinically he has no melena, diarrhea or any other GI blood loss then or now. He does endorse some shortness of breath. He denies chest pain, headache, fever, abdominal pain, vomiting, diarrhea, melena, rash, bleeding, syncope, or any other signs or symptoms on ROS at this time.. Historical: - Allergies: 17:18 Vancomycin; iw - PMHx: 17:18 End stage renal disease; Diabetes - IDDM; Dialysis; Hypertension; iw - PSHx: 17:18 Coronary Angioplasty; right AKA; triple bypass; iw - Immunization history:: Adult Immunizations unknown. - Infectious Disease History:: Denies. - Social history:: Smoking status: Patient denies any tobacco usage or history of. ROS: 18:47 Eyes: Negative for injury, pain, redness, and discharge, Neck: Negative for injury, sp3 pain, and swelling, Cardiovascular: Negative for chest pain, palpitations, and edema, Abdomen/GI: Negative for abdominal pain, nausea, vomiting, diarrhea, and constipation, Back: Negative for injury and pain, MS/Extremity: Negative for injury and deformity, Skin: Negative for injury, rash, and discoloration, Neuro: Negative for headache, weakness, numbness, tingling, and seizure, Psych: Negative for depression, anxiety, suicide ideation, homicidal ideation, and hallucinations, Allergy/Immunology: Negative for hives, rash, and allergies, 18:47 All other systems are negative, Exam: 18:47 Constitutional: This is a well developed, well nourished patient who is awake, alert, sp3 and in no acute distress. Head/Face: Normocephalic, atraumatic. Eyes: Pupils equal round and reactive to light, extra-ocular motions intact. Lids and lashes normal. Conjunctiva and sclera are non-icteric and not injected. Cornea within normal limits. Periorbital areas with no swelling, redness, or edema. Neck: Trachea midline, no thyromegaly or masses palpated, and no cervical lymphadenopathy. Supple, full range of motion without nuchal rigidity, or vertebral point tenderness. No Meningismus. Chest/axilla: Normal chest wall appearance and motion. Nontender with no deformity. No lesions are appreciated. Cardiovascular: Regular rate and rhythm with a normal S1 and S2. No gallops, murmurs, or rubs. Normal PMI, no JVD. No pulse deficits. Abdomen/GI: Soft, non-tender, with normal bowel sounds. No distension or tympany. No guarding or rebound. No evidence of tenderness throughout. Back: No spinal tenderness. No costovertebral tenderness. Full range of motion. Skin: Warm, dry with normal turgor. Normal color with no rashes, no lesions, and no evidence of cellulitis. 18:47 Respiratory: Rales noted bilaterally., 18:52 ECG was reviewed by the Attending Physician. EKG demonstrates normal sinus rhythm at 65 sp3 bpm with first-degree AV block at 258 ms, QTc 461 and normal remainder intervals, normal axis, normal QRS, nonspecific ST/T changes without evidence of acute ischemia. Vital Signs: 17:15 Resp 16 S; Temp 98.5(O); iw 17:17 BP 89 / 28; Pulse 66; Resp 16; Temp 98.7; Pulse Ox 95% on R/A; Weight 98.88 kg; Height iw 6 ft. 1 in. ; 18:00 BP 97 / 33; Pulse 63; Resp 16; Pulse Ox 96% on R/A; db 18:30 BP 99 / 32; Pulse 65; Resp 20; Pulse Ox 96% ; db 20:13 BP 90 / 34; Pulse 69; Resp 17; Temp 98.5; Pulse Ox 96% ; mb12 20:25 BP 90 / 34; Pulse 69; Resp 17; Pulse Ox 96% ; mb12 20:40 BP 103 / 34; Pulse 34; Resp 18; Temp 98.5; Pulse Ox 95% ; mb12 21:25 BP 111 / 39; Pulse 68; Resp 17; Temp 98.7; Pulse Ox 95% ; mb12 17:17 Body Mass Index 28.76 (98.88 kg, 185.42 cm) iw MDM: 17:16 Medical Screening Exam initiated sp3 18:48 Data reviewed: vital signs, nurses notes, old medical records, lab test result(s), EKG, sp3 radiologic studies. ED course: 64-year-old male with history of anemia now presents with shortness of breath and generalized weakness. Differential diagnosis includes recurrent anemia, other pulmonary process, electrolyte abnormality, ACS, among others. Workup will include EKG, chest x-ray, general labs.. ED course: Workup reviewed. Patient has hemoglobin of 6.9. BNP of over 25,000 with troponin at 132. I discussed case with cardiology who agrees with me that this is likely not acute coronary syndrome. EKG is unremarkable for ST segment concerns. Patient was just dialyzed this morning however BNP is still elevated and patient has pulmonary edema clinically. I spoken to Dr. Walker patient's PCP who will be admitting patient as well as Dr. Moreno nephrology who is arranging further dialysis. After discussion with PCP, nephrology and cardiology, the current plan is to admit patient and administer 1 unit of packed red cells and administer second unit tomorrow morning during dialysis which has already been arranged by nephrology. I will communicate this with nursing staff especially since it is change of shift to ensure proper care plan delivery. I will discuss with patient as well and follow while patient is still in the ED.. 10/01 17:16 Order name: Basic Metabolic Panel; Complete Time: 18:03 sp3 10/01 17:16 Order name: CBC with Diff sp3 10/01 17:16 Order name: LFT's; Complete Time: 18:03 sp3 10/01 17:16 Order name: Magnesium; Complete Time: 18:03 sp3 10/01 17:16 Order name: NT PRO-BNP; Complete Time: 18:03 sp3 10/01 17:16 Order name: PT-INR; Complete Time: 18:03 sp3 10/01 17:16 Order name: Troponin HS; Complete Time: 18:03 sp3 10/01 18:18 Order name: Type And Screen sp3 10/01 18:53 Order name: Hep B surface AG w/Reflex EDMS 10/01 18:53 Order name: Hepatitis B Surface Ab, QL/QN EDMS 10/01 20:46 Order name: CBC Smear Scan EDNM 10/01 17:16 Order name: XRAY Chest (1 view); Complete Time: 18:23 sp3 10/01 17:16 Order name: Cardiac monitoring; Complete Time: 18:15 sp3 10/01 17:16 Order name: EKG - Nurse/Tech; Complete Time: 18:15 sp3 10/01 17:16 Order name: IV Saline Lock; Complete Time: 18:15 sp3 10/01 17:16 Order name: Labs collected and sent; Complete Time: 18:15 sp3 10/01 17:16 Order name: O2 Per Protocol; Complete Time: 18:15 sp3 10/01 17:16 Order name: O2 Sat Monitoring; Complete Time: 18:15 sp3 Administered Medications: 21:00 Drug: Acetaminophen PO 650 mg PO once Route: PO; vc1 Disposition Summary: 10/01/24 18:51 Hospitalization Ordered Notes: Hospitalization Status: Inpatient Admission sp3 Provider: Francisco Walker sp3 [facility] sp3 Condition: Stable sp3 Problem: an acute exacerbation sp3 Symptoms: have worsened sp3 Bed/Room Type: Standard 3 Room Assignment: 216(10/01/24 20:53) rv1 Diagnosis - Anemia, end-stage renal disease, volume overload sp3 Forms: - Medication Reconciliation Form sp3 - SBAR form sp3 - Leadership Thank You Letter sp3 Signatures: Dispatcher [employer] EDMS Sowmya Nath RN RN iw Louise Lou MD MD sp3 Christianne Villalobos RN RN vc1 Carlene Pendleton RN RN db Villegas, Rebecca rv1 Corrections: (The following items were deleted from the chart) 17:17 17:17 BASIC METABOLIC PANEL+C.LAB.BRZ ordered. EDMS EDMS 17:17 17:17 CBC+H.LAB.BRZ ordered. EDMS EDMS 17:17 17:17 HEPATIC FUNCTION+C.LAB.BRZ ordered. EDMS EDMS 17:17 17:17 MAGNESIUM+C.LAB.BRZ ordered. EDMS EDMS 17:17 17:17 PROBNP+C.LAB.BRZ ordered. EDMS EDMS 17:17 17:17 PROTIME (+INR)+COAG.LAB.BRZ ordered. EDMS EDMS 17:17 17:17 Troponin High Sensitivity+C.LAB.BRZ ordered. EDMS EDMS 17:17 17:17 Chest Single View+RAD.RAD.BRZ ordered. EDMS EDMS 18:51 18:18 Blood Transfusion Consent ordered. sp3 sp3 18:52 18:18 PACKED RBC LEUKORED+BB.LAB.BRZ ordered. EDMS EDMS 18:52 18:20 ABO/RH typing ordered. EDMS EDMS 18:52 18:20 Antibody Screen ordered. EDMS EDMS 20:53 18:51 sp3 rv1
[2024-10-01] MEDS ORDERED: NA CHLORIDE 0.9% 250 ML ONE (20:04)
[2024-10-01 20:46] LABS: Anisocytosis SLIGHT; Blood Morphology Comment NOTED (NOT SEEN); Platelet Estimate ADEQ; Polychromasia 2+; White Blood Cell Scan OK (OK)
[2024-10-01] MEDS ORDERED: ACETAMINOPHEN 325 MG TABLET ONE (20:50)
[2024-10-01 23:15] VITALS: BMI 16.9
[2024-10-02 02:56] LABS: Hematocrit 24.5 % (39.6-49.0); Hemoglobin 8.4 g/dL (13.6-17.9)
[2024-10-02 05:59] LABS: Absolute Basophils 0.1 K/uL (0-0.5); Absolute Eosinophils 0.2 K/uL (0-0.5); Absolute Lymphocytes (CBC) 0.8 K/uL (0.7-4.9); Absolute Monocytes 0.6 K/uL (0.1-1.3); Basophils % 1.1 % (0-1.3); Eosinophils % 2.9 % (0-4.4); Hematocrit 23.9 % (39.6-49.0); Hemoglobin 8.2 g/dL (13.6-17.9); Lymphocytes % 10.9 % (15.3-44.8); MCH 32.8 pg (27.0-35.0); MCHC 34.2 g/dL (32.0-36.0); MCV 95.7 fL (80-100); MPV 6.4 fL (7.6-11.3); Monocytes % 7.6 % (3.3-12.3); Neutrophils % 77.5 % (41.7-73.7); Nucleated Red Blood Cells % 0.1 % (0-0); Platelets 299 thou/uL (152-406); RBC Red Blood Cell Count 2.49 M/uL (4.33-5.43); Red Cell Distribution Width 20.4 % (12.1-15.2)
[2024-10-02 06:35] LABS: Anion Gap 10.4 mEq/L (5.0-15.0); Potassium 4.4 mEq/L (3.5-5.1)
[2024-10-02 06:36] LABS: Troponin High Sensitivity 142.1 pg/mL (<58.9)
[2024-10-02] MEDS ORDERED: INSULIN LISPRO 100 UNIT/ML SQ SCH (08:15)
[2024-10-02] MEDS ORDERED: D10W 125 ML IV PRN (08:18)
[2024-10-02 08:26] VITALS: BP 125/60; TEMP 97.7
[2024-10-02] MEDS ORDERED: GLUCAGON 1 MG/VIAL IM PRN (09:00)
[2024-10-02] MEDS: PANTOPRAZOLE 40MG TABLET PO SCH (09:00)
[2024-10-02] MEDS ORDERED: HOME MED 1 EA UNK (Lansoprazole [Prevacid] 15 MG Capsule.Dr) PO SCH (09:00)
[2024-10-02 09:10] VITALS: O2SAT 99
[2024-10-02] MEDS: METOPROLOL TAR 25 MG TAB PO SCH (09:46)
[2024-10-02] MEDS: LOSARTAN POTASSIUM 50 MG TABLET PO SCH (09:47)
[2024-10-02] MEDS: GABAPENTIN 300 MG CAP PO SCH (09:48)
[2024-10-02] MEDS: EPOETIN ALFA 10,000 UNIT/ML SQ ONE (09:48)
[2024-10-02] MEDS: CALCIUM CARBONATE CHEW 500MG TAB PO SCH (09:48)
--- NOTE | 2024-10-02 10:02 | P.CNS ---
Date of Consult: 10/02/24 Reason for Consult: ESRD Requesting Physician: Francisco Walker V Chief Complaint: Weakness History of Present Illness: 18:36 This 64 yrs old Male presents to ER via Wheelchair with complaints of low sp3 blood pressure, General Weakness. 18:36 64-year-old male with history of end-stage renal disease on dialysis with last dialysis sp3 today, diabetes, hypertension now presents with recurrent feelings of generalized weakness and concerns about l medical history low hemoglobin. Approximately 4 weeks ago he was in. 18:45 64-year-old male with history of end-stage renal disease with last dialysis today, sp3 diabetes, hypertension presents with generalized weakness. Patient had a similar episode approximate 1 month ago while traveling in [place] where he received a blood transfusion. GI workup there was negative in terms of stool occult blood samples. Clinically he has no melena, diarrhea or any other GI blood loss then or now. He does endorse some shortness of breath. He denies chest pain, headache, fever, abdominal pain, vomiting, diarrhea, melena, rash, bleeding, syncope, or any other signs or symptoms on ROS at this time.. Allergies vancomycin Allergy (Verified 10/01/24 22:45) Anaphylaxis Home medications list reviewed: Yes Home Medications: Insulin Lispro [Humalog] 100 unit SQ SEECOM 04/01/15 Atorvastatin Calcium 40 mg PO DAILY 03/08/21 Vit B Comp/C/FA/Iron Sulf/Robert [Stress Formula with Iron Tab] 1 tab PO DAILY 03/08/21 Calcium Carbonate [Tums Regular] 1,000 mg PO TID 10/02/24 Evolocumab [Repatha Sureclick] 140 mg SQ SEECOM 10/02/24 Gabapentin 300 mg PO BID 10/02/24 Insulin Glargine,Hum.rec.anlog [Lantus] See Rx Instructions .ROUTE .COMPLEX 10/02/24 Lansoprazole [Prevacid] 15 mg PO DAILY 10/02/24 Losartan Potassium 25 mg PO DAILY 10/02/24 Melatonin 3 mg PO BEDTIME PRN 10/02/24 Metoprolol Tartrate [Lopressor] 25 mg PO BID 10/02/24 Mupirocin Oint [Bactroban 2% Ointment*] 1 desmond TOP PRN 10/02/24 Pantoprazole [Protonix Tab] 40 mg PO DAILY 10/02/24 - Past Medical/Surgical History Diabetic: Yes -: DM II -: HLD -: HTN -: Angina -: Lymphedema -: ESRD (Dr. Moreno/ [facility]) -: I&D on right big toe -: Left FEMPOP -: Rt AKA -: Rt index finger amputation -: Bypass x3 - Family History Mother Medical History: Heart disease, Diabetes, Stroke Father Medical History: Heart disease, Diabetes - Social History Smoking Status: Former smoker Alcohol use: No CD- Drugs: No Caffeine use: No Place of Residence: Home Review of Systems 10-point ROS is otherwise unremarkable General: Weakness, Malaise Physical Examination Temp Pulse Resp BP Pulse Ox 97.7 F 71 16 125/60 99 10/02/24 08:00 10/02/24 09:46 10/02/24 08:00 10/02/24 09:46 10/02/24 08:00 General: In no apparent distress, Oriented x3, Cooperative HEENT: Atraumatic Neck: Supple Respiratory: Clear to auscultation bilaterally, Normal air movement Cardiovascular: No edema, Regular rate/rhythm, Edema Gastrointestinal: Soft and benign, Non-distended Musculoskeletal: No clubbing, No contractures Integumentary: No rashes, No cyanosis Neurological: Normal speech Laboratory Data (last 24 hrs) 10/01/24 10/01/24 10/01/24 17:32 17:32 17:32 WBC 7.10 Hgb 6.9 L Hct 20.3 L Plt Count 310 PT 12.2 INR 1.07 Sodium 134 L Potassium 4.4 BUN 26 H Creatinine 4.96 H Glucose 160 H Magnesium 1.9 Total Bilirubin 0.3 AST 20 ALT 15 L Alkaline Phosphatase 89 Imagings Data: EXAM: Chest Single View HISTORY: 64 years Male MALAISE COMPARISON: 03/11/2021 FINDINGS: LUNGS/PLEURA: Diffuse prominence of the pulmonary interstitium which is likely a ccentuated by low lung volumes. Possible small left effusion. CARDIAC/MEDIASTINUM: Stable enlargement. UPPER ABDOMEN: No significant abnormality. BONES: Sternotomy. No acute abnormality. LINES/TUBES/OTHER: N/A IMPRESSION: Low lung volumes which accentuates pulmonary vasculature though mild pulmonary edema difficult to exclude. Conclusions/Impression: ESRD -HD TIW MWF -Next HD tomorrow HTN with CKD/ CHF -Continue Losartan and Metoprolol Diastolic CHF, chronic -Low sodium diet -UF with HD DM II with CKD -LOW Anemia in CKD GI Bleed -PRBC as ordered -Retacrit X1 -Follow up with GI CKD MBD Secondary HyperParathyroidism -Start Calcitriol -Continue Tums Case reviewed with Dr. Lou and Dr. Walker Thank you kindly for the consultation
[2024-10-02] MEDS ORDERED: INSULIN REGULAR (HUMAN) 100 UNIT/ML SQ SCH (11:30)
[2024-10-02] MEDS ORDERED: INSULIN LISPRO 100 UNIT/1 ML SQ SCH (11:30)
[2024-10-02] MEDS ORDERED: ATORVASTATIN 40 MG TAB PO SCH (21:00)
--- NOTE | 2024-10-02 21:24 | P.SSS ---
Patient History Date of Service: 10/02/24 Reason for admission: Weakness History of Present Illness: MANDO IS AN HD PATIENT WITH CHRONIC ANEMIA. HE HAD RECENT TRANSFUSION IN [place]. HE COMES BACK WITH WEAKNESS AND HG OF 6.2. HE IS STABLE. ONE UNIT OF BLOOD BROUGHT HG TO 8.2 GM. HE HAS NO DYPSNEA, NORMAL K AND IS STABLE TO GO HOME WITH FU WITH DR. ISAACS AND HD IN AM. HE NEEDS ANDERSON ON HG DROP. HE HAS NO ACUTE BLEEDING. Allergies vancomycin Allergy (Verified 10/01/24 22:45) Anaphylaxis Home medications list reviewed: Yes Home Medications: Insulin Lispro [Humalog] 100 unit SQ SEECOM 04/01/15 Atorvastatin Calcium 40 mg PO DAILY 03/08/21 Vit B Comp/C/FA/Iron Sulf/Robert [Stress Formula with Iron Tab] 1 tab PO DAILY 03/08/21 Calcium Carbonate [Tums Regular] 1,000 mg PO TID 10/02/24 Evolocumab [Repatha Sureclick] 140 mg SQ SEECOM 10/02/24 Gabapentin 300 mg PO BID 10/02/24 Insulin Glargine,Hum.rec.anlog [Lantus] See Rx Instructions .ROUTE .COMPLEX 10/02/24 Lansoprazole [Prevacid] 15 mg PO DAILY 10/02/24 Losartan Potassium 25 mg PO DAILY 10/02/24 Melatonin 3 mg PO BEDTIME PRN 10/02/24 Metoprolol Tartrate [Lopressor] 25 mg PO BID 10/02/24 Mupirocin Oint [Bactroban 2% Ointment*] 1 desmond TOP PRN 10/02/24 Pantoprazole [Protonix Tab] 40 mg PO DAILY 10/02/24 - Past Medical/Surgical History Has patient received pneumonia vaccine in the past: Yes Diabetic: Yes -: DM II -: HLD -: HTN -: Angina -: Lymphedema -: ESRD (Dr. Moreno/ [facility]) -: I&D on right big toe -: Left FEMPOP -: Rt AKA -: Rt index finger amputation -: Bypass x3 - Family History Mother -: Heart disease, Diabetes, Stroke Father -: Heart disease, Diabetes - Social History Smoking Status: Former smoker Alcohol use: No CD- Drugs: No Caffeine use: No Place of Residence: Home Review of Systems 10-point ROS is otherwise unremarkable General: Weakness Physical Examination - Vital Signs Temperature: 97.7 F Blood Pressure: 125/60 Pulse: 71 Respirations: 16 Pulse Ox (%): 99 - Physical Exam General: Alert, In no apparent distress HEENT: Atraumatic, PERRLA, Mucous membr. moist/pink, EOMI, Sclerae nonicteric Neck: Supple, 2+ carotid pulse no bruit, No LAD, Without JVD or thyroid abnormality Respiratory: Clear to auscultation bilaterally, Normal air movement Cardiovascular: Regular rate/rhythm, Normal S1 S2, Other (GRAFT R ARM. HISTORY OF AMPUTATION SECONARY TO DIABETIC INFECTION IN THE PAST. ) Gastrointestinal: Normal bowel sounds, No tenderness Musculoskeletal: No tenderness Integumentary: No rashes Neurological: Normal gait, Normal speech, Normal strength at 5/5 x4 extr, Normal tone, Normal affect Lymphatics: No axilla or inguinal lymphadenopathy - Diagnosis (Problem(s)) (1) Anemia Status: Acute Plan: TRANFUSED STABLE DC AND FU WITH DR. ISAACS CONT HD IN AM. FOLLOWING IS THE HISTORY: Coronary artery disease due to type 2 diabetes mellitus [E11.59, I25.10 0.2] 2024 Diabetes mellitus with stage 5 chronic kidney disease [E11.22, N18.5 0.2 0.8] 2024 Hemodialysis access site with arteriovenous graft [Z99.2] 2024 Amputation of right lower extremity above knee upon examination [S78.111A 0.6] 2024 Hx of CABG [Z95.1] History PMH: add past history item PSH: DISTAL FINGER AMPUATION. R INDEX. SP INJURY. 2024. DR. MEIJA. DENOMINATIONAL. (2) CKD stage 5 due to type 2 diabetes mellitus Status: Acute - Disposition Disposition: ROUTINE DISCHARGE
== END 2024-10-02 10:17 | disposition home or self-care (01) ==
LOC: ER 16:54 → ERHOLD 18:44 → 2ND 21:18
PROVIDERS: ADMIT Internal Medicine; ATTEND Internal Medicine
PROC: 30233N1 Transfusion of Nonautologous Red Blood Cells into Peripheral Vein, Percutaneous Approach (ICD-10-PCS; principal; 2024-10-01)
DX: D64.9 Anemia, unspecified (principal); R53.1 Weakness; I95.9 Hypotension, unspecified; E11.22 Type 2 diabetes mellitus with diabetic chronic kidney disease; N18.5 Chronic kidney disease, stage 5; I10 Essential (primary) hypertension; I50.32 Chronic diastolic (congestive) heart failure; D63.1 Anemia in chronic kidney disease; E21.3 Hyperparathyroidism, unspecified; Z88.1 Allergy status to other antibiotic agents; Z79.4 Long term (current) use of insulin; Z87.891 Personal history of nicotine dependence; Z99.2 Dependence on renal dialysis
CPT/HCPCS: 36415; 71045; 80048; 80076; 83735; 83880; 84484; 85014; 85018; 85025; 85610; 86850; 86900; 86901; 86920; 93005; 99284; G0378; J0885; J7050; P9016

== ENCOUNTER 2024-10-20 10:28 | Emergency (ER) | payer OTHER ==
[2024-10-20 12:08] LABS: Absolute Basophils 0.1 K/uL (0-0.5); Absolute Eosinophils 0.2 K/uL (0-0.5); Absolute Lymphocytes (CBC) 0.6 K/uL (0.7-4.9); Absolute Monocytes 0.7 K/uL (0.1-1.3); Absolute Neutrophil 7.8 K/uL (1.8-8.0); Basophils % 0.9 % (0-1.3); Eosinophils % 1.9 % (0-4.4); Hematocrit 22.9 % (39.6-49.0); Hemoglobin 7.8 g/dL (13.6-17.9); Lymphocytes % 6.7 % (15.3-44.8); MCH 32.1 pg (27.0-35.0); MCHC 34.1 g/dL (32.0-36.0); MCV 94.1 fL (80-100); MPV 6.1 fL (7.6-11.3); Monocytes % 7.4 % (3.3-12.3); Neutrophils % 83.1 % (41.7-73.7); Nucleated Red Blood Cells % 0.2 % (0-0); Platelets 401 thou/uL (152-406); RBC Red Blood Cell Count 2.43 M/uL (4.33-5.43); Red Cell Distribution Width 20.7 % (12.1-15.2)
[2024-10-20 12:25] LABS: AST/SGOT 11 U/L (15-37); Albumin/Globulin Ratio 0.7 (1.1-1.8); Alkaline Phosphatase 87 U/L (45-117); Anion Gap 8.8 mEq/L (5.0-15.0); BUN Blood Urea Nitrogen 18 mg/dL (7-18); Bicarbonate 28 mEq/L (21-32); Bilirubin Total 0.4 mg/dL (0.2-1.0); Globulin 4.4 g/dL (2.3-3.5); Glomerular Filtration Rate 13 ml/min (=/>90); Glucose Level 141 mg/dL (74-106); Potassium 3.8 mEq/L (3.5-5.1); Protein, Total 7.4 g/dL (6.4-8.2); Sodium Level 134 mEq/L (136-145)
[2024-10-20 12:43] LABS: ALT/SGPT < 14 U/L (16-61)
[2024-10-20] MEDS ORDERED: NA CHLORIDE 0.9% 250 ML ONE (12:59)
[2024-10-20 13:05] LABS: Anisocytosis 1+; Blood Morphology Comment NOTED (NOT SEEN); Macrocytosis 1+; Platelet Estimate ADEQ; Poikilocytosis SLIGHT; Polychromasia SLIGHT; White Blood Cell Scan OK (OK)
--- NOTE | 2024-10-20 17:31 | EDPHYS ---
Physician Documentation [facility] Name: Homer Bradshaw Age: 64 yrs Sex: Male : 1960 Arrival Date: 10/20/2024 Time: 10:28 Bed 13 Private MD: ED Physician Louise Lou HPI: 10/20 13:19 This 64 yrs old Male presents to ER via Wheelchair with complaints of Abnormal kb Lab Results. 13:19 Patient is a 64-year-old male who presents for low hemoglobin. States he has had some kb weakness that became worse after dialysis today and he believes he needs a blood transfusion. Hemoglobin 7.2 on Sunday. States he called Dr. Wood who recommended to come to the ER for evaluation. Patient has appointment with GI this week. Denies any active bleeding. Patient states that he has had to have multiple transfusions in the past. States whenever his hemoglobin gets low he gets weak like this and normally is improved after transfusion.. Historical: - Allergies: 11:02 Vancomycin; hb - Immunization history:: Adult Immunizations up to date. - Infectious Disease History:: Denies. - Social history:: Smoking status: Patient denies any tobacco usage or history of. ROS: 13:19 Constitutional: As per HPI kb Exam: 13:19 Constitutional: This is a well developed, well nourished patient who is awake, alert, kb and in no acute distress. Head/Face: Normocephalic, atraumatic. ENT: Moist Mucous membranes Cardiovascular: Regular rate Respiratory: Respirations even and unlabored. No increased work of breathing. Talking in full sentences Neuro: Awake and alert, GCS 15, oriented to person, place, time, and situation. Vital Signs: 10:58 BP 117 / 47; Pulse 77; Resp 16; Pulse Ox 97% on R/A; Weight 98.88 kg; Height 6 ft. 1 hb in. ; Pain 2/10; 12:00 BP 105 / 38; Pulse 71; Resp 16; Pulse Ox 94% on R/A; cm10 13:00 BP 115 / 48; Pulse 73; Resp 17; Pulse Ox 98% on R/A; cm10 13:30 BP 120 / 49; Pulse 74; Resp 16; Pulse Ox 96% ; cm10 14:00 BP 100 / 76; Pulse 71; Resp 16; Pulse Ox 91% on R/A; cm10 14:43 BP 123 / 41; Pulse 74; Resp 19; Temp 97.9; Pulse Ox 97% on R/A; cm10 15:07 BP 127 / 44; Pulse 63; Resp 17; Temp 97.8; Pulse Ox 97% on R/A; cm10 15:52 BP 114 / 44; Pulse 62; Resp 15; Temp 97.8; Pulse Ox 100% on R/A; cm10 16:57 BP 136 / 58; Pulse 66; Resp 15; Temp 97.9(O); Pulse Ox 96% on R/A; cm10 17:49 BP 147 / 54; Pulse 68; Resp 14; Temp 97.9(O); Pulse Ox 96% on R/A; cm10 10:58 Body Mass Index 28.76 (98.88 kg, 185.42 cm) hb 10:58 Pain Scale: Adult hb MDM: 10:34 Medical Screening Exam initiated kb 13:20 Differential diagnosis: Anemia, dehydration, abnormal electrolytes. Data reviewed: vital signs, nurses notes. Consideration of Admission/Observation Escalation of care including admission/observation considered. Admission considered but after speaking with Dr. Walker will transfuse 1 unit and discharged home for follow-up as scheduled with GI. Management of patient was discussed with the following: Primary Care Provider: Dr. Walker recommends transfuse 1 unit and discharged home if he is feeling better.. Historians other than the Patient: Spouse/Significant Other: Spouse. Care significantly affected by the following chronic conditions: Chronic Kidney Disease. 17:30 Counseling: I had a detailed discussion with the patient and/or guardian regarding the kb historical points, exam findings, and any diagnostic results supporting the discharge/admit diagnosis, lab results, the need for outpatient follow up, a family practitioner, to return to the emergency department if symptoms worsen or persist or if there are any questions or concerns that arise at home. 10/20 11:12 Order name: CBC with Diff; Complete Time: 13:14 kb 10/20 11:12 Order name: CMP; Complete Time: 12:45 kb 10/20 11:12 Order name: Type And Screen kb 10/20 12:18 Order name: CBC Smear Scan; Complete Time: 13:14 EDMS 10/20 14:09 Order name: Packed RBC Leukored EDMS 10/20 11:12 Order name: IV Start; Complete Time: 12:04 kb Administered Medications: No medications were administered Disposition Summary: 10/20/24 17:30 Discharge Ordered Notes: Location: Home kb Condition: Stable kb Diagnosis - Anemia, unspecified kb Followup: kb - With: Emergency Department - When: As needed - Reason: Worsening of condition Followup: kb - With: Private Physician - When: 2 - 3 days - Reason: Recheck today's complaints, Continuance of care, Re-evaluation by your physician Discharge Instructions: - Discharge Summary Sheet kb - Anemia kb - Blood Transfusion, Adult, Care After, [id number] kb Forms: - Medication Reconciliation Form kb - Antibiotic Education kb - Prescription Opioid Use kb - Patient Portal Instructions kb - Leadership Thank You Letter kb Critical care time excluding procedures: 17:31 Critical care time: Bedside Care: 10 minutes, Consultation: 10 minutes, Family kb Intervention: 10 minutes. Total time: 30 minutes Signatures: Dispatcher [employer] EDZahida Johnson, MARLON-C COPY LATHE OPERATOR-Dang Cardenas, RN RN hb Corrections: (The following items were deleted from the chart) 11:02 11:02 Allergies: Vancomycin; hb hb 11:02 11:02 PMHx: Diabetes - IDDM; hb hb 11:02 11:02 PMHx: Dialysis; hb hb 11:02 11:02 PMHx: Hypertension; hb hb 11:02 11:02 PMHx: End stage renal disease; hb hb 11:02 11:02 PSHx: Coronary Angioplasty; hb hb 11:02 11:02 PSHx: right AKA; hb hb 11:02 11:02 PSHx: triple bypass; hb hb 11:02 11:02 PSHx: Right hand - index finger amputation (triple bypass); hb hb
--- NOTE | 2024-10-20 17:31 | ER ---
Nurse's Notes [facility] Name: Homer Bradshaw Age: 64 yrs Sex: Male : 1960 Arrival Date: 10/20/2024 Time: 10:28 Bed 13 Private MD: Diagnosis: Anemia, unspecified Presentation: 10/20 10:58 Chief complaint: Patient states: "I feel like my hemoglobin is low, I am very weak that hb got worse after dialysis this morning." Recent blood transfusion and right index finger amputation. HGB last week 7 range. Coronavirus screen: At this time, the client does not indicate any symptoms associated with coronavirus-19. Ebola Screen: No symptoms or risks identified at this time. Initial Sepsis Screen: Does the patient meet any 2 criteria? No. Patient's initial sepsis screen is negative. Does the patient have a suspected source of infection? No. Patient's initial sepsis screen is negative. Risk Assessment: Do you want to hurt yourself or someone else? Patient reports no desire to harm self or others. Onset of symptoms was October 20, 2024. 10:58 Method Of Arrival: Wheelchair hb 10:58 Acuity: MICHELLE 3 hb Historical: - Allergies: 11:02 Vancomycin; hb - Immunization history:: Adult Immunizations up to date. - Infectious Disease History:: Denies. - Social history:: Smoking status: Patient denies any tobacco usage or history of. Screenin:07 [facility] ED Fall Risk Assessment (Adult) History of falling in the last 3 months, cm10 including since admission No falls in past 3 months (0 pts) Confusion or Disorientation No (0 pts) Intoxicated or Sedated No (0 pts) Impaired Gait Yes (1 pt) Mobility Assist Device Used Yes (1 pt) Altered Elimination No (0 pt) Score/Fall Risk Level 0 - 2 = Low Risk Oriented to surroundings, Maintained a safe environment, Hourly rounding (assess needs \\T\\ fall precautionary measures) done. Abuse screen: Denies threats or abuse. Denies injuries from another. Nutritional screening: No deficits noted. Tuberculosis screening: No symptoms or risk factors identified. Assessment: 12:07 General: Appears in no apparent distress. comfortable, Behavior is calm, cooperative. cm10 Pain: Denies pain. Neuro: No deficits noted. Level of Consciousness is awake, alert, obeys commands, Oriented to person, place, time, situation, Appropriate for age. Cardiovascular: Patient's skin is warm and dry. Dialysis shunt: in the right bicep. Respiratory: Airway is patent Respiratory effort is even, unlabored, Respiratory pattern is regular, symmetrical. 14:17 Reassessment: Patient appears in no apparent distress at this time. Patient and/or cm10 family updated on plan of care and expected duration. Pain level reassessed. Patient is alert, oriented x 3, equal unlabored respirations, skin warm/dry/pink. 14:52 General: Blood transfusion initiated at this time. . cm10 15:07 Reassessment: Pt tolerating transfusion well at this time. Rate increased to 100mL/hr. cm10 15:52 Reassessment: Pt tolerating blood transfusion well. No S/S of transfusion reaction. cm10 16:57 Reassessment: Patient appears in no apparent distress at this time. Patient and/or cm10 family updated on plan of care and expected duration. Pain level reassessed. Patient is alert, oriented x 3, equal unlabored respirations, skin warm/dry/pink. Pt tolerating blood transfusion well at this time. 17:49 Reassessment: Patient appears in no apparent distress at this time. Patient and/or cm10 family updated on plan of care and expected duration. Pain level reassessed. Patient is alert, oriented x 3, equal unlabored respirations, skin warm/dry/pink. Blood transfusion completed at this time. Pt tolerated well. No S/S of transfusion reaction. Vital Signs: 10:58 BP 117 / 47; Pulse 77; Resp 16; Pulse Ox 97% on R/A; Weight 98.88 kg; Height 6 ft. 1 hb in. ; Pain 2/10; 12:00 BP 105 / 38; Pulse 71; Resp 16; Pulse Ox 94% on R/A; cm10 13:00 BP 115 / 48; Pulse 73; Resp 17; Pulse Ox 98% on R/A; cm10 13:30 BP 120 / 49; Pulse 74; Resp 16; Pulse Ox 96% ; cm10 14:00 BP 100 / 76; Pulse 71; Resp 16; Pulse Ox 91% on R/A; cm10 14:43 BP 123 / 41; Pulse 74; Resp 19; Temp 97.9; Pulse Ox 97% on R/A; cm10 15:07 BP 127 / 44; Pulse 63; Resp 17; Temp 97.8; Pulse Ox 97% on R/A; cm10 15:52 BP 114 / 44; Pulse 62; Resp 15; Temp 97.8; Pulse Ox 100% on R/A; cm10 16:57 BP 136 / 58; Pulse 66; Resp 15; Temp 97.9(O); Pulse Ox 96% on R/A; cm10 17:49 BP 147 / 54; Pulse 68; Resp 14; Temp 97.9(O); Pulse Ox 96% on R/A; cm10 10:58 Body Mass Index 28.76 (98.88 kg, 185.42 cm) hb 10:58 Pain Scale: Adult hb ED Course: 10:33 Patient arrived in ED. gl 10:33 Zahida Parker FNP-C is PHCP. kb 10:34 Louise Lou MD is Attending Physician. kb 11:02 Triage completed. hb 11:03 Arm band placed on. hb 11:45 Alisha Bernstein, RN is Primary Nurse. cm10 12:04 Type And Screen Sent. cm10 12:04 CMP Sent. cm10 12:04 CBC with Diff Sent. cm10 12:04 Initial lab(s) drawn, by ok, sent to lab. T\\T\\S collected, blood band applied to patient. cm10 Inserted saline lock: 20 gauge in left antecubital area, using aseptic technique. Blood collected. Flushed with 10 mL NS. 12:10 Patient has correct armband on for positive identification. Bed in low position. Call cm10 light in reach. Side rails up X2. Pulse ox on. NIBP on. 13:30 Provided Education on: Blood Transfusion. cm10 14:46 Warm blanket given. cm10 18:03 No provider procedures requiring assistance completed. IV discontinued, intact, cm10 bleeding controlled, No redness/swelling at site. Pressure dressing applied. Administered Medications: No medications were administered Medication: 12:07 VIS not applicable for this client. cm10 14:52 Blood products: PRBCs X 1 unit given. See transfusion record. cm10 Outcome: 17:30 Discharge ordered by . kb 18:03 Discharged to home via wheelchair, with significant other, cm10 18:03 Condition: good 18:03 Discharge instructions given to patient, Instructed on discharge instructions, follow up and referral plans. Demonstrated understanding of instructions, follow-up care, 18:04 Patient left the ED. cm10 Signatures: Zahida Parker FNP-C FNP-Dang Cardenas RN RN hb Alisha Bernstein RN RN cm10 Katya Jiménez, Reg Reg gl Corrections: (The following items were deleted from the chart) 11:02 11:02 Allergies: Vancomycin; hb hb 11:02 11:02 PMHx: Diabetes - IDDM; hb hb 11:02 11:02 PMHx: Dialysis; hb hb 11:02 11:02 PMHx: Hypertension; hb hb 11:02 11:02 PMHx: End stage renal disease; hb hb 11:02 11:02 PSHx: Coronary Angioplasty; hb hb 11:02 11:02 PSHx: right AKA; hb hb 11:02 11:02 PSHx: triple bypass; hb hb 11:02 11:02 PSHx: Right hand - index finger amputation (triple bypass); hb hb 11:03 10:58 BP 117 / 47; Pulse 77bpm; Resp 16bpm; Pulse Ox 97% RA; hb hb 18:02 17:49 Reassessment: Blood transfusion completed at this time. Pt tolerated well. No S/S cm10 of transfusion reaction. cm10
[2024-10-20 18:29] VITALS: TEMP 97.9; O2SAT 96
[2024-10-20 18:31] VITALS: BP 147/54
== END 2024-10-20 18:04 | disposition home or self-care (01) ==
LOC: ER 10:28
DX: D64.9 Anemia, unspecified (principal)
CPT/HCPCS: 85025; 36415; 86900; 86850; 86901; 86920; 80053; 36430; 99285; P9016; J7050

== ENCOUNTER 2024-10-28 08:07 | Day surgery (SDC) | payer OTHER ==
[2024-10-27 10:57] LABS: Absolute Basophils 0.1 K/uL (0-0.5); Absolute Eosinophils 0.4 K/uL (0-0.5); Absolute Lymphocytes (CBC) 0.7 K/uL (0.7-4.9); Absolute Monocytes 0.7 K/uL (0.1-1.3); Absolute Neutrophil 7.9 K/uL (1.8-8.0); Basophils % 0.6 % (0-1.3); Hematocrit 29.8 % (39.6-49.0); Hemoglobin 9.8 g/dL (13.6-17.9); Lymphocytes % 7.1 % (15.3-44.8); MCH 31.1 pg (27.0-35.0); MCHC 32.8 g/dL (32.0-36.0); MCV 94.8 fL (80-100); MPV 6.8 fL (7.6-11.3); Monocytes % 6.9 % (3.3-12.3); Neutrophils % 81.4 % (41.7-73.7); Nucleated Red Blood Cells % 0.1 % (0-0); Platelets 385 thou/uL (152-406); RBC Red Blood Cell Count 3.14 M/uL (4.33-5.43)
[2024-10-27 14:15] LABS: Anisocytosis 1+; Blood Morphology Comment NOTED (NOT SEEN); Platelet Estimate ADEQ; Platelets Clumped MANY; Poikilocytosis 1+; Polychromasia 1+; White Blood Cell Scan OK (OK)
[2024-10-28] MEDS: NA CHLORIDE 0.9% 1,000 ML ONE (08:45)
[2024-10-28] MEDS ORDERED: propofoL 200 MG/20 ML VIAL IV ONE (08:54)
[2024-10-28] MEDS ORDERED: LIDOCAINE 1% MPF 5 ML VIAL ONE (08:54)
[2024-10-28] MEDS ORDERED: EPINEPHRINE 1 MG/ML VIAL ONE (09:37)
[2024-10-28 11:18] VITALS: TEMP 97
[2024-10-28 12:47] VITALS: BP 103/40; O2SAT 97
== END 2024-10-28 10:55 | disposition home or self-care (01) ==
LOC: OR 08:07
PROVIDERS: ATTEND Internal Medicine Gastroenterology
PROC: 0W3P8ZZ Control Bleeding in Gastrointestinal Tract, Via Natural or Artificial Opening Endoscopic (ICD-10-PCS; principal; 2024-10-28 09:15)
DX: K31.811 Angiodysplasia of stomach and duodenum with bleeding (principal); D50.9 Iron deficiency anemia, unspecified; K92.2 Gastrointestinal hemorrhage, unspecified; I10 Essential (primary) hypertension; E78.00 Pure hypercholesterolemia, unspecified; N18.9 Chronic kidney disease, unspecified; K21.9 Gastro-esophageal reflux disease without esophagitis
CPT/HCPCS: 85025; 36415; 84132; 82947 ×2; 43270; J2704; J2003; J0171; J7030

== ENCOUNTER 2025-03-24 07:49 | Day surgery (SDC) | payer OTHER ==
[2025-03-20 14:24] LABS: Absolute Lymphocytes (CBC) 0.4 K/uL (0.7-4.9); Hematocrit 31.7 % (39.6-49.0); Hemoglobin 10.5 g/dL (13.6-17.9); MCH 31.9 pg (27.0-35.0); MCHC 32.9 g/dL (32.0-36.0); MCV 96.8 fL (80-100); MPV 6.3 fL (7.6-11.3); Nucleated RBC Absolute Count 0.0 (0-0); Nucleated Red Blood Cells % 0.1 % (0-0); RBC Red Blood Cell Count 3.28 M/uL (4.33-5.43); White Blood Count 7.50 thou/uL (4.3-10.9)
[2025-03-20 14:38] LABS: Anion Gap 11.0 mEq/L (5.0-15.0); BUN Blood Urea Nitrogen 19.0 mg/dL (7-18); Glucose Level 204.0 mg/dL (74-106); Potassium 4.0 mEq/L (3.5-5.1)
[2025-03-20 15:14] LABS: White Blood Cell Scan OK (OK)
[2025-03-20 15:15] LABS: Blood Morphology Comment NOT SEEN (NOT SEEN)
[2025-03-24] MEDS: NA CHLORIDE 0.9% 500 ML ONE (08:15)
[2025-03-24] MEDS ORDERED: LIDOCAINE 1% MPF 5 ML VIAL ONE (09:17)
[2025-03-24 11:27] VITALS: TEMP 97.2
[2025-03-24 11:32] VITALS: BP 119/44; O2SAT 95
== END 2025-03-24 10:30 | disposition home or self-care (01) ==
LOC: OR 07:49
PROVIDERS: ATTEND Internal Medicine Gastroenterology
PROC: 0W3P8ZZ Control Bleeding in Gastrointestinal Tract, Via Natural or Artificial Opening Endoscopic (ICD-10-PCS; principal; 2025-03-24 09:00)
DX: K31.811 Angiodysplasia of stomach and duodenum with bleeding (principal); K29.50 Unspecified chronic gastritis without bleeding; K31.7 Polyp of stomach and duodenum; D50.9 Iron deficiency anemia, unspecified; D63.8 Anemia in other chronic diseases classified elsewhere; I99.8 Other disorder of circulatory system
CPT/HCPCS: 93005; 85025; 80048; 36415; 82947; 43270 ×2; J2704; J2003; J7040